=== PATIENT | male | born 1950 | race Caucasian/White ===

== ENCOUNTER 2017-11-14 03:56 | Inpatient (IN) | payer MEDICARE, MEDICAID, OTHER ==
[2017-11-14] MEDS: KETOROLAC 15 MG INJ IV (04:55)
[2017-11-14] MEDS: SOD CHLORIDE 0.9% 1,000 ML IV (04:56)
[2017-11-14] MEDS: ONDANSETRON 4 MG INJ IV (04:56)
[2017-11-14 05:24] LABS: ADD MAN DIFF? NO
[2017-11-14 05:29] LABS: BASOPHIL # 0.1 10^3/ul (0.0-0.1); BASOPHILS % 0.8 % (0.0-2.0); EOSINOPHILS # 0.4 10^3/ul (0.0-0.5); HEMATOCRIT 47.7 % (42.0-52.0); LYMPHOCYTES # 1.1 10^3/ul (0.8-2.9); LYMPHOCYTES % 18.8 % (15.0-51.0); MEAN CORPUSCULAR HEMOGLOBIN 25.6 pg (29.0-33.0); MEAN CORPUSCULAR HGB CONC 31.4 g/dl (32.0-37.0); MEAN CORPUSCULAR VOLUME 81.3 fl (82.0-101.0); MEAN PLATELET VOLUME 10.9 fl (7.4-10.4); MONOCYTE # 0.6 10^3/ul (0.3-0.9); MONOCYTES % 9.2 % (0.0-11.0); NEUTROPHIL # 3.9 10^3/ul (1.6-7.5); NEUTROPHILS % 64.7 % (39.0-77.0); PLATELET COUNT 266 10^3/UL (140-415); RED BLOOD COUNT 5.87 10^6/ul (4.70-6.10); RED CELL DISTRIBUTION WIDTH 13.3 % (11.5-14.5)
[2017-11-14] MEDS: morphine 2 MG INJ IV (05:51)
[2017-11-14] MEDS ORDERED: NACL 0.9% 3 ML SYG IV (06:00)
[2017-11-14] MEDS ORDERED: ACETAMINOPHEN 325 MG TAB PO ×2 (06:00→10:30)
[2017-11-14] MEDS ORDERED: ONDANSETRON 4 MG INJ IV (06:00)
[2017-11-14 06:06] LABS: ANION GAP 12 (8-16); BLOOD UREA NITROGEN 35 mg/dl (7-20); CALCIUM 9.2 mg/dl (8.4-10.2); CARBON DIOXIDE 35 mmol/L (21-31); CHLORIDE 99 mmol/L (97-110); CREATININE 1.29 mg/dl (0.61-1.24); GLUCOSE 59 mg/dl (70-220); POTASSIUM 3.3 mmol/L (3.5-5.1); SODIUM 143 mmol/L (135-144)
[2017-11-14] MEDS ORDERED: HYDROmorphONE 1 MG/ML SYG IV (06:30)
[2017-11-14] MEDS: METOPROLOL 5 MG INJ IV (06:38)
[2017-11-14 07:54] LABS: ALANINE AMINOTRANSFERASE 22 IU/L (13-69); ALKALINE PHOSPHATASE 140 IU/L (42-121); ASPARTATE AMINO TRANSFERASE 42 IU/L (15-46); BILIRUBIN,INDIRECT 0.3 mg/dl (0-1.1); BILIRUBIN,TOTAL 0.3 mg/dl (0.2-1.3); TOTAL PROTEIN 8.7 g/dl (6.1-8.1)
[2017-11-14 08:02] LABS: B-TYPE NATRIURETIC PEPTIDE 8130 PG/ML (0-125)
[2017-11-14] MEDS: APIXABAN 5 MG TABLET PO ×2 (09:11→20:36)
[2017-11-14] MEDS ORDERED: NITROGLYCERIN (SL) 0.4 MG TAB SL (10:30)
[2017-11-14] MEDS: INSULIN ASPART [NOVOLOG] 3 ML PEN SC ×3 (11:45→20:43)
[2017-11-14 12:07] LABS: CREATINE KINASE 48 IU/L (23-200)
[2017-11-14 12:20] LABS: CK INDEX 7.6; TROPONIN-I 0.099 ng/ml (0.00-0.12)
[2017-11-14 12:22] LABS: CK-MB 3.65 ng/ml (0.0-2.4)
[2017-11-14 13:14] LABS: MAGNESIUM 1.8 mg/dl (1.7-2.5)
[2017-11-14 13:16] LABS: PHOSPHORUS 3.2 mg/dl (2.5-4.9)
[2017-11-14 13:16] LABS: CREATINE KINASE 52 IU/L (23-200)
[2017-11-14 13:24] LABS: INR 1.92; PROTIME 22.4 Sec (11.9-14.9); PT RATIO 1.8
[2017-11-14 13:25] LABS: PARTIAL THROMBOPLASTIN TIME 52.3 Sec (25.0-35.0)
[2017-11-14 13:26] LABS: TROPONIN-I 0.117 ng/ml (0.00-0.12)
[2017-11-14] MEDS ORDERED: HYDROmorphONE 2 MG/ML SYG IV (13:30)
[2017-11-14 13:38] LABS: CK INDEX 6.8
[2017-11-14 13:39] LABS: CK-MB 3.55 ng/ml (0.0-2.4)
[2017-11-14] MEDS: HYDROCODONE/APAP (5/325) TAB PO (15:42)
[2017-11-14] MEDS: FUROSEMIDE 20 MG INJ IV (17:15)
[2017-11-14] MEDS ORDERED: METOPROLOL 5 MG INJ IV (18:30)
[2017-11-14] MEDS: DIGOXIN 500 MCG INJ IV (18:46)
[2017-11-14] MEDS: ATENOLOL 25 MG TAB PO (20:36)
[2017-11-14] MEDS: INSULIN GLARGINE [LANtus] 3 ML PEN SC (20:42)
[2017-11-14] MEDS ORDERED: METOPROLOL 25 MG TAB PO (21:00)
[2017-11-15] MEDS: ACCU-CHEK XX (02:00)
[2017-11-15] MEDS: FUROSEMIDE 20 MG INJ IV ×2 (05:25→17:26)
[2017-11-15 07:26] LABS: ADD MAN DIFF? NO
[2017-11-15 07:29] LABS: BASOPHILS % 0.8 % (0.0-2.0); EOSINOPHILS # 0.3 10^3/ul (0.0-0.5); EOSINOPHILS % 7.5 % (0.0-7.0); HEMATOCRIT 41.9 % (42.0-52.0); HEMOGLOBIN 13.3 g/dl (14.0-18.0); LYMPHOCYTES # 1.4 10^3/ul (0.8-2.9); LYMPHOCYTES % 36.1 % (15.0-51.0); MEAN CORPUSCULAR HEMOGLOBIN 25.7 pg (29.0-33.0); MEAN CORPUSCULAR HGB CONC 31.7 g/dl (32.0-37.0); MEAN CORPUSCULAR VOLUME 80.9 fl (82.0-101.0); MEAN PLATELET VOLUME 10.7 fl (7.4-10.4); MONOCYTE # 0.4 10^3/ul (0.3-0.9); MONOCYTES % 10.4 % (0.0-11.0); NEUTROPHIL # 1.7 10^3/ul (1.6-7.5); NEUTROPHILS % 44.9 % (39.0-77.0); PLATELET COUNT 153 10^3/UL (140-415); RED BLOOD COUNT 5.18 10^6/ul (4.70-6.10); RED CELL DISTRIBUTION WIDTH 13.2 % (11.5-14.5)
[2017-11-15 07:29] LABS: WHITE BLOOD COUNT 3.9 10^3/ul (4.8-10.8)
[2017-11-15 07:58] LABS: ANION GAP 11 (8-16); BLOOD UREA NITROGEN 37 mg/dl (7-20); CARBON DIOXIDE 28 mmol/L (21-31); CHLORIDE 105 mmol/L (97-110); CREATININE 1.14 mg/dl (0.61-1.24); GLUCOSE 194 mg/dl (70-220); MAGNESIUM 1.9 mg/dl (1.7-2.5); PHOSPHORUS 2.8 mg/dl (2.5-4.9); SODIUM 140 mmol/L (135-144)
[2017-11-15] MEDS: DULOXETINE 30 MG CAP DR PO (08:23)
[2017-11-15] MEDS: FERROUS SULFATE (EC) 325 MG TAB PO (08:23)
[2017-11-15] MEDS: APIXABAN 5 MG TABLET PO ×2 (08:23→20:36)
[2017-11-15] MEDS: ATENOLOL 25 MG TAB PO ×2 (08:24→20:36)
[2017-11-15] MEDS: INSULIN ASPART [NOVOLOG] 3 ML PEN SC ×4 (08:29→20:38)
[2017-11-15] MEDS ORDERED: LISINOPRIL 5 MG TAB PO (09:00)
[2017-11-15] MEDS ORDERED: HYDROmorphONE 0.5 MG/0.5 ML SYG IV (11:30)
[2017-11-15] MEDS: HYDROCODONE/APAP (5/325) TAB PO (12:15)
[2017-11-15] MEDS: hydrALAzine 20 MG INJ IV (17:26)
[2017-11-15] MEDS: INSULIN GLARGINE [LANtus] 3 ML PEN SC (20:38)
[2017-11-16] MEDS: ACCU-CHEK XX (02:00)
[2017-11-16] MEDS: HYDROCODONE/APAP (5/325) TAB PO ×2 (03:51→15:00)
[2017-11-16] MEDS: FUROSEMIDE 20 MG INJ IV ×2 (05:21→17:24)
[2017-11-16] MEDS: INSULIN ASPART [NOVOLOG] 3 ML PEN SC ×4 (07:54→20:47)
[2017-11-16] MEDS: DULOXETINE 30 MG CAP DR PO (08:36)
[2017-11-16] MEDS: FERROUS SULFATE (EC) 325 MG TAB PO (08:36)
[2017-11-16] MEDS: APIXABAN 5 MG TABLET PO ×2 (08:36→20:46)
[2017-11-16] MEDS: ATENOLOL 25 MG TAB PO (08:37)
[2017-11-16 08:39] LABS: ADD MAN DIFF? NO
[2017-11-16 08:42] LABS: WHITE BLOOD COUNT 5.5 10^3/ul (4.8-10.8)
[2017-11-16 08:42] LABS: BASOPHIL # 0.1 10^3/ul (0.0-0.1); BASOPHILS % 0.9 % (0.0-2.0); EOSINOPHILS # 0.4 10^3/ul (0.0-0.5); EOSINOPHILS % 7.7 % (0.0-7.0); HEMATOCRIT 46.1 % (42.0-52.0); HEMOGLOBIN 14.7 g/dl (14.0-18.0); LYMPHOCYTES % 37.1 % (15.0-51.0); MEAN CORPUSCULAR HEMOGLOBIN 25.5 pg (29.0-33.0); MEAN CORPUSCULAR HGB CONC 31.9 g/dl (32.0-37.0); MEAN CORPUSCULAR VOLUME 79.9 fl (82.0-101.0); MEAN PLATELET VOLUME 11.1 fl (7.4-10.4); MONOCYTE # 0.5 10^3/ul (0.3-0.9); MONOCYTES % 9.3 % (0.0-11.0); NEUTROPHIL # 2.4 10^3/ul (1.6-7.5); NEUTROPHILS % 44.6 % (39.0-77.0); PLATELET COUNT 199 10^3/UL (140-415); RED BLOOD COUNT 5.77 10^6/ul (4.70-6.10); RED CELL DISTRIBUTION WIDTH 13.4 % (11.5-14.5)
[2017-11-16 09:09] LABS: ANION GAP 13 (8-16); BLOOD UREA NITROGEN 28 mg/dl (7-20); CALCIUM 9.4 mg/dl (8.4-10.2); CARBON DIOXIDE 29 mmol/L (21-31); CHLORIDE 105 mmol/L (97-110); CREATININE 0.95 mg/dl (0.61-1.24); GLUCOSE 133 mg/dl (70-220); POTASSIUM 3.8 mmol/L (3.5-5.1); SODIUM 143 mmol/L (135-144)
[2017-11-16] MEDS: ALPRAZOLAM 0.25 MG TAB PO (12:17)
[2017-11-16] MEDS: INSULIN GLARGINE [LANtus] 3 ML PEN SC (20:48)
[2017-11-16] MEDS: ATENOLOL 50 MG TAB PO (21:12)
[2017-11-17] MEDS: hydrALAzine 20 MG INJ IV (00:45)
[2017-11-17] MEDS: ACCU-CHEK XX (01:05)
[2017-11-17] MEDS: HYDROCODONE/APAP (5/325) TAB PO (04:13)
[2017-11-17] MEDS: FUROSEMIDE 20 MG INJ IV ×2 (05:39→17:28)
[2017-11-17] MEDS: ALPRAZOLAM 0.25 MG TAB PO ×2 (05:43→12:16)
[2017-11-17 08:19] LABS: ADD MAN DIFF? NO
[2017-11-17 08:24] LABS: WHITE BLOOD COUNT 6.3 10^3/ul (4.8-10.8)
[2017-11-17 08:24] LABS: BASOPHIL # 0.1 10^3/ul (0.0-0.1); EOSINOPHILS # 0.5 10^3/ul (0.0-0.5); EOSINOPHILS % 7.8 % (0.0-7.0); HEMATOCRIT 45.8 % (42.0-52.0); HEMOGLOBIN 14.8 g/dl (14.0-18.0); LYMPHOCYTES # 2.3 10^3/ul (0.8-2.9); LYMPHOCYTES % 35.7 % (15.0-51.0); MEAN CORPUSCULAR HEMOGLOBIN 25.6 pg (29.0-33.0); MEAN CORPUSCULAR HGB CONC 32.3 g/dl (32.0-37.0); MEAN CORPUSCULAR VOLUME 79.2 fl (82.0-101.0); MONOCYTE # 0.6 10^3/ul (0.3-0.9); NEUTROPHIL # 2.9 10^3/ul (1.6-7.5); NEUTROPHILS % 45.2 % (39.0-77.0); PLATELET COUNT 222 10^3/UL (140-415); RED BLOOD COUNT 5.78 10^6/ul (4.70-6.10); RED CELL DISTRIBUTION WIDTH 13.5 % (11.5-14.5)
[2017-11-17] MEDS: INSULIN ASPART [NOVOLOG] 3 ML PEN SC ×5 (08:34→22:46)
[2017-11-17 08:43] LABS: ANION GAP 11 (8-16); BLOOD UREA NITROGEN 30 mg/dl (7-20); CALCIUM 9.2 mg/dl (8.4-10.2); CARBON DIOXIDE 29 mmol/L (21-31); CHLORIDE 103 mmol/L (97-110); CREATININE 1.01 mg/dl (0.61-1.24); GLUCOSE 176 mg/dl (70-220); POTASSIUM 3.6 mmol/L (3.5-5.1); SODIUM 139 mmol/L (135-144)
[2017-11-17] MEDS: ATENOLOL 50 MG TAB PO ×2 (10:20→21:58)
[2017-11-17] MEDS: FERROUS SULFATE (EC) 325 MG TAB PO (10:20)
[2017-11-17] MEDS: DULOXETINE 30 MG CAP DR PO (10:20)
[2017-11-17] MEDS: APIXABAN 5 MG TABLET PO ×2 (10:20→21:58)
[2017-11-17] MEDS: ONDANSETRON 4 MG INJ IV (17:35)
[2017-11-17] MEDS: INSULIN GLARGINE [LANtus] 3 ML PEN SC ×2 (22:13→23:03)
[2017-11-18] MEDS: ALPRAZOLAM 0.25 MG TAB PO (00:17)
[2017-11-18] MEDS: ACCU-CHEK XX (02:00)
[2017-11-18] MEDS: FUROSEMIDE 20 MG INJ IV ×2 (06:05→17:12)
[2017-11-18] MEDS: INSULIN ASPART [NOVOLOG] 3 ML PEN SC ×6 (08:00→17:16)
[2017-11-18] MEDS: DULOXETINE 30 MG CAP DR PO (08:11)
[2017-11-18] MEDS: APIXABAN 5 MG TABLET PO (08:12)
[2017-11-18] MEDS: DILTIAZEM (CD) 120 MG CAP PO (08:12)
[2017-11-18] MEDS: FERROUS SULFATE (EC) 325 MG TAB PO (08:12)
[2017-11-18] MEDS: ATENOLOL 50 MG TAB PO (08:12)
[2017-11-18] MEDS: HYDROCODONE/APAP (5/325) TAB PO (14:15)
[2017-11-18] MEDS ORDERED: INSULIN GLARGINE [LANtus] 3 ML PEN SC (21:00)
== END 2017-11-18 19:01 | DRG 308 ==
LOC: E/R 03:56 → MS4 05:15
DX: I48.91 Unspecified atrial fibrillation (principal); I50.43 Acute on chronic combined systolic (congestive) and diastolic (congestive) heart failure; L89.154 Pressure ulcer of sacral region, stage 4; I11.0 Hypertensive heart disease with heart failure; I35.0 Nonrheumatic aortic (valve) stenosis; E11.9 Type 2 diabetes mellitus without complications; Z79.4 Long term (current) use of insulin; Z89.512 Acquired absence of left leg below knee; Z89.511 Acquired absence of right leg below knee
CPT/HCPCS: 36415; 70450; 71045; 80048; 80076; 82550; 82553; 82962; 83735; 83880; 84100; 84132; 84443; 84484; 85025; 85610; 85730; 87040; 93005; 96374; 96375; 99285-25; J1940

== ENCOUNTER 2017-11-20 06:29 | Inpatient (IN) | payer MEDICARE, MEDICAID ==
[2017-11-20] MEDS: NITROGLYCERIN 2% 1 GM OINT PKT TD (06:38)
[2017-11-20 08:15] LABS: ADD MAN DIFF? NO
[2017-11-20 08:19] LABS: WHITE BLOOD COUNT 5.6 10^3/ul (4.8-10.8)
[2017-11-20 08:19] LABS: BASOPHIL # 0.1 10^3/ul (0.0-0.1); BASOPHILS % 1.3 % (0.0-2.0); EOSINOPHILS # 0.4 10^3/ul (0.0-0.5); EOSINOPHILS % 7.5 % (0.0-7.0); HEMATOCRIT 46.2 % (42.0-52.0); HEMOGLOBIN 14.7 g/dl (14.0-18.0); LYMPHOCYTES % 35.2 % (15.0-51.0); MEAN CORPUSCULAR HEMOGLOBIN 25.3 pg (29.0-33.0); MEAN CORPUSCULAR HGB CONC 31.8 g/dl (32.0-37.0); MEAN CORPUSCULAR VOLUME 79.7 fl (82.0-101.0); MEAN PLATELET VOLUME 10.8 fl (7.4-10.4); MONOCYTE # 0.5 10^3/ul (0.3-0.9); MONOCYTES % 9.3 % (0.0-11.0); NEUTROPHIL # 2.6 10^3/ul (1.6-7.5); NEUTROPHILS % 46.3 % (39.0-77.0); PLATELET COUNT 182 10^3/UL (140-415); POSITIVE DIFF @See below; RED CELL DISTRIBUTION WIDTH 13.5 % (11.5-14.5)
[2017-11-20 08:37] LABS: ANION GAP 14 (8-16); BLOOD UREA NITROGEN 38 mg/dl (7-20); CARBON DIOXIDE 26 mmol/L (21-31); CHLORIDE 106 mmol/L (97-110); CREATININE 0.95 mg/dl (0.61-1.24); GLUCOSE 89 mg/dl (70-220); POTASSIUM 4.3 mmol/L (3.5-5.1); SODIUM 142 mmol/L (135-144)
[2017-11-20 08:48] LABS: TROPONIN-I 0.034 ng/ml (0.00-0.12)
[2017-11-20 09:49] LABS: CREATINE KINASE 45 IU/L (23-200)
[2017-11-20 10:01] LABS: CK INDEX 4.8; TROPONIN-I 0.031 ng/ml (0.00-0.12)
[2017-11-20 10:06] LABS: CK-MB 2.16 ng/ml (0.0-2.4)
[2017-11-20] MEDS ORDERED: ACETAMINOPHEN 325 MG TAB PO (11:00)
[2017-11-20] MEDS ORDERED: ONDANSETRON 4 MG INJ IV (11:00)
[2017-11-20] MEDS ORDERED: NITROGLYCERIN (SL) 0.4 MG TAB SL (13:00)
[2017-11-20] MEDS ORDERED: DEXTROSE 50% 50 ML SYRINGE IV ×2 (13:30)
[2017-11-20] MEDS ORDERED: GLUCOSE GEL 15 GRAM TUBE BUCCAL (13:30)
[2017-11-20] MEDS ORDERED: GLUCAGON 1 MG INJ IM (13:30)
[2017-11-20] MEDS ORDERED: GLUCOSE GEL 15 GRAM TUBE PO ×2 (13:30)
[2017-11-20] MEDS: INSULIN ASPART [NOVOLOG] 3 ML PEN SC (19:14)
[2017-11-20 19:38] LABS: CREATINE KINASE 62 IU/L (23-200)
[2017-11-20 19:50] LABS: CK INDEX 3.5; TROPONIN-I 0.019 ng/ml (0.00-0.12)
[2017-11-20 19:51] LABS: CK-MB 2.15 ng/ml (0.0-2.4)
[2017-11-20] MEDS: ALPRAZOLAM 0.25 MG TAB PO (20:03)
[2017-11-20] MEDS: HYDROCODONE/APAP (5/325) TAB PO (20:04)
[2017-11-21] MEDS: FUROSEMIDE 20 MG TAB PO ×3 (00:13→21:11)
[2017-11-21] MEDS: ATENOLOL 50 MG TAB PO ×3 (00:14→21:12)
[2017-11-21] MEDS: APIXABAN 5 MG TABLET PO ×3 (00:14→21:11)
[2017-11-21] MEDS: INSULIN GLARGINE [LANtus] 3 ML PEN SC ×2 (00:21→21:18)
[2017-11-21] MEDS: INSULIN ASPART [NOVOLOG] 3 ML PEN SC ×4 (00:21→21:17)
[2017-11-21] MEDS: ACCU-CHEK XX (09:00)
[2017-11-21] MEDS: FERROUS SULFATE (EC) 325 MG TAB PO (09:44)
[2017-11-21] MEDS: DULOXETINE 30 MG CAP DR PO (09:44)
[2017-11-21] MEDS: DILTIAZEM (CD) 120 MG CAP PO (09:48)
[2017-11-21] MEDS: HYDROCODONE/APAP (5/325) TAB PO (13:07)
[2017-11-21] MEDS: ACET/BUTAL/CAFF TAB PO (18:35)
[2017-11-22] MEDS: ACCU-CHEK XX (01:24)
[2017-11-22] MEDS: INSULIN ASPART [NOVOLOG] 3 ML PEN SC ×4 (08:00→20:34)
[2017-11-22] MEDS: FUROSEMIDE 20 MG TAB PO ×2 (08:20→20:28)
[2017-11-22] MEDS: DULOXETINE 30 MG CAP DR PO (08:20)
[2017-11-22] MEDS: FERROUS SULFATE (EC) 325 MG TAB PO (08:20)
[2017-11-22] MEDS: APIXABAN 5 MG TABLET PO ×2 (08:20→20:27)
[2017-11-22] MEDS: DILTIAZEM (CD) 120 MG CAP PO (08:20)
[2017-11-22] MEDS: ATENOLOL 50 MG TAB PO ×2 (08:21→20:28)
[2017-11-22] MEDS: HYDROCODONE/APAP (5/325) TAB PO ×2 (12:19→21:53)
[2017-11-22] MEDS: INSULIN GLARGINE [LANtus] 3 ML PEN SC (20:36)
[2017-11-23] MEDS: ACCU-CHEK XX (02:00)
[2017-11-23] MEDS: ALPRAZOLAM 0.25 MG TAB PO (05:34)
[2017-11-23] MEDS: ACETAMINOPHEN 325 MG TAB PO (06:06)
[2017-11-23] MEDS: FERROUS SULFATE (EC) 325 MG TAB PO (08:26)
[2017-11-23] MEDS: ATENOLOL 50 MG TAB PO ×2 (08:27→20:46)
[2017-11-23] MEDS: APIXABAN 5 MG TABLET PO ×2 (08:27→20:44)
[2017-11-23] MEDS: DULOXETINE 30 MG CAP DR PO (08:27)
[2017-11-23] MEDS: DILTIAZEM (CD) 120 MG CAP PO ×2 (08:27→08:35)
[2017-11-23] MEDS: FUROSEMIDE 20 MG TAB PO ×2 (08:27→20:45)
[2017-11-23] MEDS: HYDROCODONE/APAP (5/325) TAB PO (08:28)
[2017-11-23] MEDS: INSULIN ASPART [NOVOLOG] 3 ML PEN SC ×4 (08:30→20:44)
[2017-11-23] MEDS: INSULIN GLARGINE [LANtus] 3 ML PEN SC (20:43)
[2017-11-24] MEDS: HYDROCODONE/APAP (5/325) TAB PO ×3 (00:08→16:02)
[2017-11-24] MEDS: ACCU-CHEK XX (02:00)
[2017-11-24] MEDS: INSULIN ASPART [NOVOLOG] 3 ML PEN SC ×4 (08:00→22:09)
[2017-11-24] MEDS: FAMOTIDINE 20 MG TAB PO (08:23)
[2017-11-24] MEDS: FERROUS SULFATE (EC) 325 MG TAB PO ×2 (08:23→08:29)
[2017-11-24] MEDS: APIXABAN 5 MG TABLET PO ×2 (08:23→22:08)
[2017-11-24] MEDS: DULOXETINE 30 MG CAP DR PO (08:23)
[2017-11-24] MEDS: ALPRAZOLAM 0.25 MG TAB PO (08:23)
[2017-11-24] MEDS: FUROSEMIDE 20 MG TAB PO ×2 (08:25→22:08)
[2017-11-24] MEDS: ATENOLOL 50 MG TAB PO ×2 (08:25→21:00)
[2017-11-24] MEDS: DILTIAZEM (CD) 120 MG CAP PO (08:26)
[2017-11-24 09:45] LABS: ALBUMIN 3.5 g/dl (3.3-4.9); ANION GAP 10 (8-16); BLOOD UREA NITROGEN 30 mg/dl (7-20); CALCIUM 9.2 mg/dl (8.4-10.2); CARBON DIOXIDE 35 mmol/L (21-31); CHLORIDE 105 mmol/L (97-110); CREATININE 1.01 mg/dl (0.61-1.24); GLUCOSE 107 mg/dl (70-220); MAGNESIUM 2.2 mg/dl (1.7-2.5); PHOSPHORUS 3.6 mg/dl (2.5-4.9); POTASSIUM 4.5 mmol/L (3.5-5.1); SODIUM 145 mmol/L (135-144)
[2017-11-24] MEDS: INSULIN GLARGINE [LANtus] 3 ML PEN SC (22:10)
[2017-11-25] MEDS: ACCU-CHEK XX (02:00)
[2017-11-25] MEDS: ALPRAZOLAM 0.25 MG TAB PO (02:13)
[2017-11-25] MEDS: FAMOTIDINE 20 MG TAB PO (09:00)
[2017-11-25] MEDS: DULOXETINE 30 MG CAP DR PO (09:00)
[2017-11-25] MEDS: FUROSEMIDE 20 MG TAB PO (09:00)
[2017-11-25] MEDS: DILTIAZEM (CD) 120 MG CAP PO (09:01)
[2017-11-25] MEDS: ATENOLOL 50 MG TAB PO (09:01)
[2017-11-25] MEDS: APIXABAN 5 MG TABLET PO (09:01)
[2017-11-25] MEDS: FERROUS SULFATE (EC) 325 MG TAB PO (09:01)
[2017-11-25] MEDS: INSULIN ASPART [NOVOLOG] 3 ML PEN SC (09:05)
[2017-11-25] MEDS: HYDROCODONE/APAP (5/325) TAB PO (10:10)
== END 2017-11-25 11:30 | disposition home or self-care (01) | DRG 308 ==
LOC: MS4 10:39 → E/R 06:29
DX: I48.92 Unspecified atrial flutter (principal); I50.43 Acute on chronic combined systolic (congestive) and diastolic (congestive) heart failure; D68.69 Other thrombophilia; I48.2 Chronic atrial fibrillation; I11.0 Hypertensive heart disease with heart failure; F32.9 Major depressive disorder, single episode, unspecified; I35.0 Nonrheumatic aortic (valve) stenosis; E78.5 Hyperlipidemia, unspecified; I25.10 Atherosclerotic heart disease of native coronary artery without angina pectoris; E11.9 Type 2 diabetes mellitus without complications; Z79.02 Long term (current) use of antithrombotics/antiplatelets; Z79.4 Long term (current) use of insulin; Z89.512 Acquired absence of left leg below knee; Z89.511 Acquired absence of right leg below knee; Z93.3 Colostomy status; Z87.891 Personal history of nicotine dependence
CPT/HCPCS: 36415; 71045; 80048; 80069; 82550; 82553; 82962; 83735; 84484; 85025; 93005; 96372; 97161; 97167; 99285-25; G0378

== ENCOUNTER 2017-12-15 05:46 | Inpatient (IN) | payer MEDICARE, MEDICAID ==
[2017-12-15 06:33] LABS: ADD MAN DIFF? NO
[2017-12-15 06:36] LABS: WHITE BLOOD COUNT 6.2 10^3/ul (4.8-10.8)
[2017-12-15 06:36] LABS: BASOPHILS % 0.7 % (0.0-2.0); EOSINOPHILS # 0.1 10^3/ul (0.0-0.5); EOSINOPHILS % 2.1 % (0.0-7.0); HEMATOCRIT 48.2 % (42.0-52.0); HEMOGLOBIN 15.4 g/dl (14.0-18.0); LYMPHOCYTES # 1.2 10^3/ul (0.8-2.9); MEAN CORPUSCULAR VOLUME 78.4 fl (82.0-101.0); MONOCYTE # 0.5 10^3/ul (0.3-0.9); MONOCYTES % 8.5 % (0.0-11.0); NEUTROPHIL # 4.3 10^3/ul (1.6-7.5); NEUTROPHILS % 69.4 % (39.0-77.0); PLATELET COUNT 246 10^3/UL (140-415); RED BLOOD COUNT 6.15 10^6/ul (4.70-6.10); RED CELL DISTRIBUTION WIDTH 13.6 % (11.5-14.5)
[2017-12-15 06:57] LABS: ANION GAP 15 (8-16); BLOOD UREA NITROGEN 21 mg/dl (7-20); CALCIUM 9.4 mg/dl (8.4-10.2); CARBON DIOXIDE 33 mmol/L (21-31); CHLORIDE 104 mmol/L (97-110); CREATININE 1.15 mg/dl (0.61-1.24); GLUCOSE 119 mg/dl (70-220); POTASSIUM 4.2 mmol/L (3.5-5.1); SODIUM 148 mmol/L (135-144)
[2017-12-15 07:09] LABS: TROPONIN-I 0.017 ng/ml (0.00-0.12)
[2017-12-15] MEDS: ASPIRIN 81 MG TAB PO (07:18)
[2017-12-15] MEDS: ONDANSETRON 4 MG INJ IV (07:18)
[2017-12-15] MEDS: HYDROmorphONE 0.5 MG/0.5 ML SYG IV ×3 (07:18→20:45)
[2017-12-15 08:07] LABS: INR 1.17; PROTIME 15.1 Sec (11.9-14.9); PT RATIO 1.2
[2017-12-15 08:08] LABS: PARTIAL THROMBOPLASTIN TIME 42.9 Sec (25.0-35.0)
[2017-12-15] MEDS ORDERED: ACETAMINOPHEN 325 MG TAB PO ×2 (08:30→11:30)
[2017-12-15] MEDS ORDERED: ONDANSETRON 4 MG INJ IV ×2 (08:30→11:30)
[2017-12-15] MEDS ORDERED: NITROGLYCERIN (SL) 0.4 MG TAB SL (11:30)
[2017-12-15] MEDS ORDERED: NACL 0.9% 3 ML SYG IV (11:30)
[2017-12-15 12:29] LABS: UR BACTERIA MANY /HPF (NONE SEEN); UR MUCUS MANY /HPF (NONE SEEN); UR RBC 44 /HPF (0-5); UR SQUAMOUS EPITHELIAL CELL MANY /HPF (FEW); UR WBC > 182 /HPF (0-5)
[2017-12-15] MEDS ORDERED: GLUCAGON 1 MG INJ IM (12:30)
[2017-12-15] MEDS ORDERED: DEXTROSE 50% 50 ML SYRINGE IV ×2 (12:30)
[2017-12-15] MEDS ORDERED: GLUCOSE GEL 15 GRAM TUBE PO ×2 (12:30)
[2017-12-15] MEDS ORDERED: GLUCOSE GEL 15 GRAM TUBE BUCCAL (12:30)
[2017-12-15 12:31] LABS: ADD UMIC YES; UR ASCORBIC ACID NEGATIVE (NEGATIVE); UR BILIRUBIN (Dip) 1+ mg/dL (NEGATIVE); UR BLOOD (Dip) 2+ mg/dL (NEGATIVE); UR CLARITY TURBID (CLEAR); UR COLOR YELLOW (YELLOW); UR GLUCOSE (Dip) NEGATIVE (NEGATIVE); UR KETONES (Dip) NEGATIVE (NEGATIVE); UR LEUKOCYTE ESTERASE (Dip) 2+ Leu/ul (NEGATIVE); UR NITRITE (Dip) NEGATIVE (NEGATIVE); UR SPECIFIC GRAVITY (Dip) 1.023 (1.003-1.030); UR TOTAL PROTEIN (Dip) 2+ mg/dl (NEGATIVE); UR UROBILINOGEN (Dip) 2+ mg/dL (NEGATIVE)
[2017-12-15] MEDS: INSULIN ASPART [NOVOLOG] 3 ML PEN SC ×6 (12:37→20:50)
[2017-12-15 13:09] LABS: CREATINE KINASE 42 IU/L (23-200)
[2017-12-15 13:21] LABS: CK INDEX 3.5; TROPONIN-I 0.062 ng/ml (0.00-0.12)
[2017-12-15 13:27] LABS: CK-MB 1.48 ng/ml (0.0-2.4)
[2017-12-15 14:25] LABS: B-TYPE NATRIURETIC PEPTIDE 4650 PG/ML (0-125)
[2017-12-15] MEDS ORDERED: PENDING SANTYL ORDER FOR WOUND CARE XX (16:00)
[2017-12-15] MEDS: Discontinue current oral sulfonylureas (glyburide, glipizide, and/or glimepiride) prior to XX (16:16)
[2017-12-15] MEDS: HYPOGLYCEMIA PROTOCOL when Glucose is <70 mg/dL or symptomatic <90 mg/dL. XX (16:16)
[2017-12-15] MEDS: FUROSEMIDE 20 MG INJ IV (17:37)
[2017-12-15] MEDS ORDERED: METOPROLOL 5 MG INJ IV (19:00)
[2017-12-15] MEDS: SOD CHLORIDE 0.45% 1,000 ML IV (20:42)
[2017-12-15] MEDS: APIXABAN 5 MG TABLET PO (20:42)
[2017-12-15] MEDS: ATENOLOL 50 MG TAB PO (20:43)
[2017-12-15] MEDS: FAMOTIDINE 20 MG TAB PO (20:44)
[2017-12-15] MEDS: INSULIN GLARGINE [LANtus] 3 ML PEN SC (20:46)
[2017-12-15] MEDS ORDERED: FUROSEMIDE 20 MG TAB PO (21:00)
[2017-12-16] MEDS: ACCU-CHEK XX (01:56)
[2017-12-16] MEDS: FUROSEMIDE 20 MG INJ IV ×2 (06:49→18:37)
[2017-12-16] MEDS: INSULIN ASPART [NOVOLOG] 3 ML PEN SC ×8 (08:00→21:21)
[2017-12-16] MEDS: DILTIAZEM (CD) 120 MG CAP PO (09:41)
[2017-12-16] MEDS: DULOXETINE 30 MG CAP DR PO (09:41)
[2017-12-16] MEDS: ATENOLOL 50 MG TAB PO ×2 (09:41→21:15)
[2017-12-16] MEDS: FERROUS SULFATE (EC) 325 MG TAB PO (09:41)
[2017-12-16] MEDS: APIXABAN 5 MG TABLET PO (09:42)
[2017-12-16] MEDS: HYDROmorphONE 0.5 MG/0.5 ML SYG IV ×2 (11:28→18:37)
[2017-12-16] MEDS: SOD CHLORIDE 0.45% 1,000 ML IV (11:30)
[2017-12-16] MEDS ORDERED: LEVOFLOXACIN 500MG/D5W (PMX) 100 ML IVPB (12:30)
[2017-12-16 14:17] LABS: ADD MAN DIFF? NO
[2017-12-16 14:21] LABS: BASOPHIL # 0.1 10^3/ul (0.0-0.1); BASOPHILS % 1.2 % (0.0-2.0); EOSINOPHILS # 0.3 10^3/ul (0.0-0.5); HEMATOCRIT 47.3 % (42.0-52.0); HEMOGLOBIN 15.1 g/dl (14.0-18.0); LYMPHOCYTES # 1.8 10^3/ul (0.8-2.9); LYMPHOCYTES % 34.9 % (15.0-51.0); MEAN CORPUSCULAR HEMOGLOBIN 25.5 pg (29.0-33.0); MEAN CORPUSCULAR HGB CONC 31.9 g/dl (32.0-37.0); MEAN CORPUSCULAR VOLUME 79.8 fl (82.0-101.0); MEAN PLATELET VOLUME 10.6 fl (7.4-10.4); MONOCYTE # 0.6 10^3/ul (0.3-0.9); NEUTROPHIL # 2.4 10^3/ul (1.6-7.5); NEUTROPHILS % 45.7 % (39.0-77.0); PLATELET COUNT 227 10^3/UL (140-415); RED BLOOD COUNT 5.93 10^6/ul (4.70-6.10); RED CELL DISTRIBUTION WIDTH 13.9 % (11.5-14.5)
[2017-12-16 14:21] LABS: WHITE BLOOD COUNT 5.2 10^3/ul (4.8-10.8)
[2017-12-16 14:44] LABS: ANION GAP 16 (8-16); BLOOD UREA NITROGEN 29 mg/dl (7-20); CALCIUM 9.1 mg/dl (8.4-10.2); CARBON DIOXIDE 31 mmol/L (21-31); CHLORIDE 104 mmol/L (97-110); CHOL/HDL RATIO 5.8 RATIO; CHOLESTEROL 169 mg/dl (100-200); CREATININE 1.09 mg/dl (0.61-1.24); GLUCOSE 123 mg/dl (70-220); HDL CHOLESTEROL 29 mg/dl (30-78); LDL CHOLESTEROL,CALCULATED 114 mg/dl; MAGNESIUM 1.9 mg/dl (1.7-2.5); PHOSPHORUS 3.7 mg/dl (2.5-4.9); POTASSIUM 4.6 mmol/L (3.5-5.1); SODIUM 146 mmol/L (135-144); TRIGLYCERIDES 132 mg/dl (0-149)
[2017-12-16] MEDS: CIPROFLOXACIN 400MG/D5W 200 ML IVPB ×2 (14:55→22:55)
[2017-12-16 15:03] LABS: HEMOGLOBIN A1C 8.1 % (0-5.9)
[2017-12-16] MEDS: FAMOTIDINE 20 MG TAB PO (21:14)
[2017-12-16] MEDS: INSULIN GLARGINE [LANtus] 3 ML PEN SC (21:17)
[2017-12-16] MEDS: HYDROCODONE/APAP (5/325) TAB PO (23:29)
[2017-12-17] MEDS: ACCU-CHEK XX (02:35)
[2017-12-17] MEDS: SOD CHLORIDE 0.45% 1,000 ML IV (05:35)
[2017-12-17] MEDS: FUROSEMIDE 20 MG INJ IV ×2 (05:35→17:51)
[2017-12-17] MEDS: HYDROmorphONE 0.5 MG/0.5 ML SYG IV ×4 (08:22→22:23)
[2017-12-17] MEDS: APIXABAN 5 MG TABLET PO ×2 (08:28→21:21)
[2017-12-17] MEDS: FERROUS SULFATE (EC) 325 MG TAB PO (08:28)
[2017-12-17] MEDS: CIPROFLOXACIN 400MG/D5W 200 ML IVPB (08:28)
[2017-12-17] MEDS: ATENOLOL 50 MG TAB PO ×2 (08:29→21:21)
[2017-12-17] MEDS: DULOXETINE 30 MG CAP DR PO (08:29)
[2017-12-17] MEDS: DILTIAZEM (CD) 120 MG CAP PO (08:29)
[2017-12-17] MEDS: INSULIN ASPART [NOVOLOG] 3 ML PEN SC ×8 (08:31→21:54)
[2017-12-17 08:41] LABS: ADD MAN DIFF? NO
[2017-12-17 08:45] LABS: WHITE BLOOD COUNT 4.9 10^3/ul (4.8-10.8)
[2017-12-17 08:45] LABS: BASOPHIL # 0.1 10^3/ul (0.0-0.1); EOSINOPHILS # 0.3 10^3/ul (0.0-0.5); EOSINOPHILS % 6.7 % (0.0-7.0); HEMATOCRIT 46.5 % (42.0-52.0); HEMOGLOBIN 14.7 g/dl (14.0-18.0); LYMPHOCYTES # 1.6 10^3/ul (0.8-2.9); MEAN CORPUSCULAR HEMOGLOBIN 25.3 pg (29.0-33.0); MEAN CORPUSCULAR HGB CONC 31.6 g/dl (32.0-37.0); MEAN CORPUSCULAR VOLUME 79.9 fl (82.0-101.0); MONOCYTE # 0.5 10^3/ul (0.3-0.9); NEUTROPHIL # 2.4 10^3/ul (1.6-7.5); NEUTROPHILS % 47.9 % (39.0-77.0); PLATELET COUNT 204 10^3/UL (140-415); RED BLOOD COUNT 5.82 10^6/ul (4.70-6.10); RED CELL DISTRIBUTION WIDTH 13.3 % (11.5-14.5)
[2017-12-17 09:14] LABS: ANION GAP 15 (8-16); BLOOD UREA NITROGEN 35 mg/dl (7-20); CALCIUM 9.2 mg/dl (8.4-10.2); CARBON DIOXIDE 33 mmol/L (21-31); CHLORIDE 101 mmol/L (97-110); CREATININE 1.29 mg/dl (0.61-1.24); GLUCOSE 233 mg/dl (70-220); POTASSIUM 4.6 mmol/L (3.5-5.1); SODIUM 144 mmol/L (135-144)
[2017-12-17] MEDS: MUPIROCIN 2% 22 GM OINT TOP ×2 (12:47→21:51)
[2017-12-17] MEDS: MEROPENEM 1 GM/50ML(PMX) 50 ML IVPB ×2 (14:32→21:21)
[2017-12-17] MEDS: FAMOTIDINE 20 MG TAB PO (21:21)
[2017-12-17] MEDS: INSULIN GLARGINE [LANtus] 3 ML PEN SC (21:25)
[2017-12-18] MEDS: ACCU-CHEK XX (02:00)
[2017-12-18] MEDS: FUROSEMIDE 20 MG INJ IV ×2 (05:28→17:25)
[2017-12-18] MEDS: SOD CHLORIDE 0.45% 1,000 ML IV (06:46)
[2017-12-18] MEDS: INSULIN ASPART [NOVOLOG] 3 ML PEN SC ×8 (08:00→21:00)
[2017-12-18] MEDS: DULOXETINE 30 MG CAP DR PO (09:35)
[2017-12-18] MEDS: DILTIAZEM (CD) 120 MG CAP PO (09:35)
[2017-12-18] MEDS: APIXABAN 5 MG TABLET PO ×2 (09:36→21:01)
[2017-12-18] MEDS: FERROUS SULFATE (EC) 325 MG TAB PO (09:36)
[2017-12-18] MEDS: HYDROCODONE/APAP (5/325) TAB PO (09:36)
[2017-12-18] MEDS: ATENOLOL 50 MG TAB PO ×2 (09:36→21:01)
[2017-12-18] MEDS: MUPIROCIN 2% 22 GM OINT TOP ×2 (09:37→21:15)
[2017-12-18] MEDS: HYDROmorphONE 0.5 MG/0.5 ML SYG IV ×2 (11:01→18:48)
[2017-12-18] MEDS: MEROPENEM 1 GM/50ML(PMX) 50 ML IVPB ×2 (11:21→21:02)
[2017-12-18] MEDS: FAMOTIDINE 20 MG TAB PO (21:01)
[2017-12-18] MEDS: INSULIN GLARGINE [LANtus] 3 ML PEN SC (21:03)
[2017-12-19] MEDS: ACCU-CHEK XX (02:00)
[2017-12-19] MEDS: SOD CHLORIDE 0.45% 1,000 ML IV (03:13)
[2017-12-19] MEDS: FUROSEMIDE 20 MG INJ IV ×2 (05:30→17:50)
[2017-12-19] MEDS: INSULIN ASPART [NOVOLOG] 3 ML PEN SC ×8 (08:00→20:54)
[2017-12-19] MEDS: MEROPENEM 1 GM/50ML(PMX) 50 ML IVPB ×2 (08:12→20:48)
[2017-12-19] MEDS: APIXABAN 5 MG TABLET PO (08:12)
[2017-12-19] MEDS: MUPIROCIN 2% 22 GM OINT TOP ×2 (08:12→20:48)
[2017-12-19] MEDS: FERROUS SULFATE (EC) 325 MG TAB PO (08:12)
[2017-12-19] MEDS: DULOXETINE 30 MG CAP DR PO (08:12)
[2017-12-19] MEDS: DILTIAZEM (CD) 120 MG CAP PO (08:12)
[2017-12-19] MEDS: ATENOLOL 50 MG TAB PO ×2 (08:13→20:47)
[2017-12-19] MEDS: HYDROmorphONE 0.5 MG/0.5 ML SYG IV ×2 (08:26→17:53)
[2017-12-19] MEDS ORDERED: VANCOMYCIN IV PER PHARMACY XX (11:30)
[2017-12-19] MEDS: VANCOMYCIN 1.5 GM in SOD CHLORIDE 0.9% 250 ML IVPB (13:30)
[2017-12-19] MEDS: FAMOTIDINE 20 MG TAB PO (20:47)
[2017-12-19] MEDS: ALPRAZOLAM 0.25 MG TAB PO (23:26)
[2017-12-19] MEDS: INSULIN GLARGINE [LANtus] 3 ML PEN SC (23:30)
[2017-12-20] MEDS: ACCU-CHEK XX (02:00)
[2017-12-20] MEDS: FUROSEMIDE 20 MG INJ IV ×2 (06:00→18:12)
[2017-12-20] MEDS: INSULIN ASPART [NOVOLOG] 3 ML PEN SC ×8 (08:00→20:25)
[2017-12-20 08:53] LABS: ADD MAN DIFF? NO
[2017-12-20] MEDS: MEROPENEM 1 GM/50ML(PMX) 50 ML IVPB ×3 (09:00→20:45)
[2017-12-20 09:03] LABS: BASOPHILS % 0.7 % (0.0-2.0); EOSINOPHILS # 0.3 10^3/ul (0.0-0.5); EOSINOPHILS % 7.1 % (0.0-7.0); HEMATOCRIT 45.5 % (42.0-52.0); HEMOGLOBIN 14.6 g/dl (14.0-18.0); LYMPHOCYTES # 0.9 10^3/ul (0.8-2.9); LYMPHOCYTES % 22.4 % (15.0-51.0); MEAN CORPUSCULAR HGB CONC 32.1 g/dl (32.0-37.0); MEAN CORPUSCULAR VOLUME 77.8 fl (82.0-101.0); MEAN PLATELET VOLUME 10.5 fl (7.4-10.4); MONOCYTE # 0.5 10^3/ul (0.3-0.9); MONOCYTES % 12.1 % (0.0-11.0); NEUTROPHIL # 2.3 10^3/ul (1.6-7.5); PLATELET COUNT 217 10^3/UL (140-415); RED BLOOD COUNT 5.85 10^6/ul (4.70-6.10); RED CELL DISTRIBUTION WIDTH 13.8 % (11.5-14.5)
[2017-12-20 09:03] LABS: WHITE BLOOD COUNT 4.1 10^3/ul (4.8-10.8)
[2017-12-20] MEDS: ATENOLOL 50 MG TAB PO ×2 (09:13→20:22)
[2017-12-20] MEDS: DULOXETINE 30 MG CAP DR PO (09:13)
[2017-12-20] MEDS: MUPIROCIN 2% 22 GM OINT TOP ×2 (09:14→20:22)
[2017-12-20] MEDS: FERROUS SULFATE (EC) 325 MG TAB PO (09:14)
[2017-12-20] MEDS: DILTIAZEM (CD) 120 MG CAP PO (09:14)
[2017-12-20 09:30] LABS: INR 1.23; PROTIME 15.7 Sec (11.9-14.9); PT RATIO 1.2
[2017-12-20 09:30] LABS: CHOLESTEROL 157 mg/dl (100-200)
[2017-12-20 09:31] LABS: PARTIAL THROMBOPLASTIN TIME 45.2 Sec (25.0-35.0)
[2017-12-20 09:48] LABS: ANION GAP 14 (8-16); BLOOD UREA NITROGEN 36 mg/dl (7-20); CALCIUM 9.1 mg/dl (8.4-10.2); CARBON DIOXIDE 29 mmol/L (21-31); CHLORIDE 105 mmol/L (97-110); CREATININE 0.89 mg/dl (0.61-1.24); GLUCOSE 84 mg/dl (70-220); POTASSIUM 4.2 mmol/L (3.5-5.1); SODIUM 144 mmol/L (135-144)
[2017-12-20] MEDS: DIAZEPAM 5 MG TAB PO (10:00)
[2017-12-20] MEDS: SOD CHLORIDE 0.45% 1,000 ML IV (11:30)
[2017-12-20] MEDS: VANCOMYCIN 750 MG in DEXTROSE 5% 150 ML IVPB ×2 (12:00)
[2017-12-20] MEDS: DIPHENHYDRAMINE 50 MG CAP PO (12:03)
[2017-12-20] MEDS ORDERED: MIDAZOLAM 1 MG/ML 2 ML INJ (12:08)
[2017-12-20] MEDS ORDERED: HEPARIN 1000 UNITS/ML 10 ML INJ (12:08)
[2017-12-20] MEDS ORDERED: IODIXANOL LOCM 100 ML BTL (12:08)
[2017-12-20] MEDS ORDERED: LIDOCAINE 1% (MDV) 20 ML INJ (12:08)
[2017-12-20] MEDS ORDERED: VERAPAMIL 5 MG INJ (12:09)
[2017-12-20] MEDS ORDERED: NITROGLYCERIN (IC) 100 MCG/ML INJ ×2 (12:09→15:12)
[2017-12-20] MEDS ORDERED: FENTAnyl 50 MCG/ML VIAL ×2 (12:09→13:50)
[2017-12-20] MEDS ORDERED: LIDOCAINE 100 MG SYRINGE (15:12)
[2017-12-20] MEDS ORDERED: NALOXONE (0.4 MG/ML) INJ (15:12)
[2017-12-20] MEDS ORDERED: SOD CHLORIDE 0.9% 500 ML (15:12)
[2017-12-20] MEDS ORDERED: VANCOMYCIN 750 MG in SOD CHLORIDE 0.9% 150 ML IVPB (15:15)
[2017-12-20] MEDS ORDERED: AL HYDROX/MG HYDROX/SIMETH 30 ML CUP PO (15:30)
[2017-12-20] MEDS ORDERED: ACETAMINOPHEN 325 MG TAB PO (15:30)
[2017-12-20] MEDS: SOD CHLORIDE 0.9% 1,000 ML IV (16:48)
[2017-12-20] MEDS: VANCOMYCIN 1 GM 250 ML IVPB (18:10)
[2017-12-20] MEDS: FAMOTIDINE 20 MG TAB PO (20:22)
[2017-12-20] MEDS: INSULIN GLARGINE [LANtus] 3 ML PEN SC (20:34)
[2017-12-21] MEDS: SOD CHLORIDE 0.45% 1,000 ML IV (00:47)
[2017-12-21] MEDS: ACCU-CHEK XX (02:00)
[2017-12-21] MEDS: FUROSEMIDE 20 MG INJ IV ×2 (06:17→17:25)
[2017-12-21] MEDS: VANCOMYCIN 1 GM 250 ML IVPB ×2 (06:17→17:24)
[2017-12-21] MEDS: HYDROCODONE/APAP (5/325) TAB PO (06:57)
[2017-12-21] MEDS: INSULIN ASPART [NOVOLOG] 3 ML PEN SC ×7 (08:00→21:26)
[2017-12-21] MEDS: MEROPENEM 1 GM/50ML(PMX) 50 ML IVPB ×2 (09:08→21:08)
[2017-12-21] MEDS: DILTIAZEM (CD) 120 MG CAP PO (09:09)
[2017-12-21] MEDS: ATENOLOL 50 MG TAB PO ×2 (09:09→21:19)
[2017-12-21] MEDS: DULOXETINE 30 MG CAP DR PO (09:09)
[2017-12-21] MEDS: FERROUS SULFATE (EC) 325 MG TAB PO (09:09)
[2017-12-21] MEDS: MUPIROCIN 2% 22 GM OINT TOP ×2 (09:10→21:00)
[2017-12-21] MEDS: APIXABAN 5 MG TABLET PO ×2 (09:23→21:19)
[2017-12-21 09:31] LABS: ADD MAN DIFF? NO
[2017-12-21 09:35] LABS: BASOPHILS % 0.9 % (0.0-2.0); EOSINOPHILS # 0.2 10^3/ul (0.0-0.5); EOSINOPHILS % 3.3 % (0.0-7.0); HEMATOCRIT 41.9 % (42.0-52.0); HEMOGLOBIN 13.4 g/dl (14.0-18.0); LYMPHOCYTES # 0.8 10^3/ul (0.8-2.9); LYMPHOCYTES % 17.9 % (15.0-51.0); MEAN CORPUSCULAR HEMOGLOBIN 25.5 pg (29.0-33.0); MEAN CORPUSCULAR VOLUME 79.7 fl (82.0-101.0); MEAN PLATELET VOLUME 10.1 fl (7.4-10.4); MONOCYTE # 0.6 10^3/ul (0.3-0.9); MONOCYTES % 12.3 % (0.0-11.0); NEUTROPHIL # 2.9 10^3/ul (1.6-7.5); NEUTROPHILS % 65.4 % (39.0-77.0); PLATELET COUNT 207 10^3/UL (140-415); RED BLOOD COUNT 5.26 10^6/ul (4.70-6.10); RED CELL DISTRIBUTION WIDTH 13.9 % (11.5-14.5)
[2017-12-21 09:35] LABS: WHITE BLOOD COUNT 4.5 10^3/ul (4.8-10.8)
[2017-12-21 09:55] LABS: ANION GAP 14 (8-16); BLOOD UREA NITROGEN 28 mg/dl (7-20); CALCIUM 8.6 mg/dl (8.4-10.2); CARBON DIOXIDE 31 mmol/L (21-31); CHLORIDE 105 mmol/L (97-110); CREATININE 1.05 mg/dl (0.61-1.24); GLUCOSE 131 mg/dl (70-220); POTASSIUM 3.9 mmol/L (3.5-5.1); SODIUM 146 mmol/L (135-144)
[2017-12-21] MEDS ORDERED: INSULIN ASPART [NOVOLOG] 3 ML PEN SC (12:00)
[2017-12-21] MEDS: HYDROmorphONE 0.5 MG/0.5 ML SYG IV ×3 (13:41→23:45)
[2017-12-21] MEDS: FAMOTIDINE 20 MG TAB PO (21:19)
[2017-12-21] MEDS: INSULIN GLARGINE [LANtus] 3 ML PEN SC (21:26)
[2017-12-22] MEDS: ACCU-CHEK XX (02:00)
[2017-12-22] MEDS: FUROSEMIDE 20 MG INJ IV ×2 (05:44→17:25)
[2017-12-22] MEDS: VANCOMYCIN 1 GM 250 ML IVPB (05:44)
[2017-12-22] MEDS: INSULIN ASPART [NOVOLOG] 3 ML PEN SC ×8 (08:00→20:42)
[2017-12-22 09:03] LABS: ADD MAN DIFF? NO
[2017-12-22 09:09] LABS: WHITE BLOOD COUNT 4.3 10^3/ul (4.8-10.8)
[2017-12-22 09:09] LABS: BASOPHILS % 0.7 % (0.0-2.0); EOSINOPHILS # 0.2 10^3/ul (0.0-0.5); EOSINOPHILS % 4.4 % (0.0-7.0); HEMATOCRIT 39.1 % (42.0-52.0); HEMOGLOBIN 12.5 g/dl (14.0-18.0); LYMPHOCYTES # 1.4 10^3/ul (0.8-2.9); MEAN CORPUSCULAR VOLUME 78.2 fl (82.0-101.0); MEAN PLATELET VOLUME 10.4 fl (7.4-10.4); MONOCYTE # 0.5 10^3/ul (0.3-0.9); MONOCYTES % 11.5 % (0.0-11.0); NEUTROPHIL # 2.1 10^3/ul (1.6-7.5); NEUTROPHILS % 50.2 % (39.0-77.0); PLATELET COUNT 177 10^3/UL (140-415); RED CELL DISTRIBUTION WIDTH 13.8 % (11.5-14.5)
[2017-12-22] MEDS: APIXABAN 5 MG TABLET PO ×2 (09:21→20:39)
[2017-12-22] MEDS: ATENOLOL 50 MG TAB PO ×2 (09:21→20:40)
[2017-12-22] MEDS: DULOXETINE 30 MG CAP DR PO (09:21)
[2017-12-22] MEDS: MEROPENEM 1 GM/50ML(PMX) 50 ML IVPB ×2 (09:22→20:38)
[2017-12-22] MEDS: DILTIAZEM (CD) 180 MG CAP PO (09:22)
[2017-12-22] MEDS: FERROUS SULFATE (EC) 325 MG TAB PO (09:22)
[2017-12-22] MEDS: COLLAGENASE 30 GM TUBE TOP (09:23)
[2017-12-22] MEDS: MUPIROCIN 2% 22 GM OINT TOP ×2 (09:23→20:44)
[2017-12-22 09:29] LABS: ANION GAP 13 (8-16); BLOOD UREA NITROGEN 23 mg/dl (7-20); CALCIUM 8.7 mg/dl (8.4-10.2); CARBON DIOXIDE 30 mmol/L (21-31); CHLORIDE 106 mmol/L (97-110); CREATININE 0.86 mg/dl (0.61-1.24); GLUCOSE 135 mg/dl (70-220); SODIUM 145 mmol/L (135-144)
[2017-12-22] MEDS: HYDROmorphONE 0.5 MG/0.5 ML SYG IV ×2 (12:01→20:43)
[2017-12-22] MEDS: SOD CHLORIDE 0.45% 1,000 ML IV (12:25)
[2017-12-22] MEDS: DIPHENHYDRAMINE 50 MG INJ IV (13:42)
[2017-12-22 17:33] LABS: VANCOMYCIN,TROUGH 24.7 ug/ml (10.0-20.0)
[2017-12-22] MEDS: FAMOTIDINE 20 MG TAB PO (20:39)
[2017-12-22] MEDS: INSULIN GLARGINE [LANtus] 3 ML PEN SC (20:41)
[2017-12-23] MEDS: HYDROmorphONE 0.5 MG/0.5 ML SYG IV ×2 (01:45→10:53)
[2017-12-23] MEDS: ALPRAZOLAM 0.25 MG TAB PO (01:45)
[2017-12-23] MEDS: ACCU-CHEK XX (01:47)
[2017-12-23] MEDS: FUROSEMIDE 20 MG INJ IV ×2 (05:06→17:55)
[2017-12-23] MEDS: VANCOMYCIN 1 GM 250 ML IVPB (05:06)
[2017-12-23] MEDS: INSULIN ASPART [NOVOLOG] 3 ML PEN SC ×8 (08:00→21:00)
[2017-12-23] MEDS: APIXABAN 5 MG TABLET PO ×2 (09:14→21:02)
[2017-12-23] MEDS: FERROUS SULFATE (EC) 325 MG TAB PO (09:14)
[2017-12-23] MEDS: ATENOLOL 50 MG TAB PO ×2 (09:14→21:03)
[2017-12-23] MEDS: DULOXETINE 30 MG CAP DR PO (09:14)
[2017-12-23] MEDS: COLLAGENASE 30 GM TUBE TOP (09:15)
[2017-12-23] MEDS: DILTIAZEM (CD) 180 MG CAP PO (09:15)
[2017-12-23] MEDS: MUPIROCIN 2% 22 GM OINT TOP ×2 (09:15→21:04)
[2017-12-23] MEDS: MEROPENEM 1 GM/50ML(PMX) 50 ML IVPB ×2 (09:16→21:02)
[2017-12-23 11:08] LABS: ANION GAP 16 (8-16); BLOOD UREA NITROGEN 29 mg/dl (7-20); CALCIUM 8.3 mg/dl (8.4-10.2); CARBON DIOXIDE 25 mmol/L (21-31); CHLORIDE 105 mmol/L (97-110); CREATININE 0.91 mg/dl (0.61-1.24); GLUCOSE 119 mg/dl (70-220); POTASSIUM 4.6 mmol/L (3.5-5.1); SODIUM 141 mmol/L (135-144)
[2017-12-23] MEDS: DIPHENHYDRAMINE 25 MG CAP PO (15:07)
[2017-12-23] MEDS: SOD CHLORIDE 0.45% 1,000 ML IV (15:08)
[2017-12-23] MEDS: FAMOTIDINE 20 MG TAB PO (21:02)
[2017-12-23] MEDS: INSULIN GLARGINE [LANtus] 3 ML PEN SC (21:04)
[2017-12-24] MEDS: ACCU-CHEK XX (01:56)
[2017-12-24] MEDS: VANCOMYCIN 1 GM 250 ML IVPB (05:21)
[2017-12-24] MEDS: FUROSEMIDE 20 MG INJ IV ×2 (05:21→17:44)
[2017-12-24] MEDS: INSULIN ASPART [NOVOLOG] 3 ML PEN SC ×8 (08:00→21:01)
[2017-12-24] MEDS: HYDROmorphONE 0.5 MG/0.5 ML SYG IV ×3 (08:08→20:47)
[2017-12-24] MEDS: APIXABAN 5 MG TABLET PO ×2 (08:32→20:48)
[2017-12-24] MEDS: ATENOLOL 50 MG TAB PO ×2 (08:32→20:49)
[2017-12-24] MEDS: DULOXETINE 30 MG CAP DR PO (08:32)
[2017-12-24] MEDS: FERROUS SULFATE (EC) 325 MG TAB PO (08:32)
[2017-12-24] MEDS: DILTIAZEM (CD) 180 MG CAP PO (08:33)
[2017-12-24] MEDS: MUPIROCIN 2% 22 GM OINT TOP ×2 (09:15→20:54)
[2017-12-24] MEDS: COLLAGENASE 30 GM TUBE TOP (09:15)
[2017-12-24] MEDS: MEROPENEM 1 GM/50ML(PMX) 50 ML IVPB ×2 (09:23→21:11)
[2017-12-24] MEDS: SOD CHLORIDE 0.45% 1,000 ML IV ×2 (11:30→17:55)
[2017-12-24] MEDS: FAMOTIDINE 20 MG TAB PO (20:48)
[2017-12-24] MEDS: INSULIN GLARGINE [LANtus] 3 ML PEN SC (20:59)
[2017-12-25] MEDS: HYDROmorphONE 0.5 MG/0.5 ML SYG IV ×5 (00:57→21:24)
[2017-12-25] MEDS: ACCU-CHEK XX (01:52)
[2017-12-25] MEDS: FUROSEMIDE 20 MG INJ IV ×2 (06:08→17:40)
[2017-12-25] MEDS: VANCOMYCIN 1 GM 250 ML IVPB (06:08)
[2017-12-25] MEDS: ONDANSETRON 4 MG INJ IV (07:00)
[2017-12-25] MEDS: INSULIN ASPART [NOVOLOG] 3 ML PEN SC ×8 (08:24→21:22)
[2017-12-25] MEDS: DULOXETINE 30 MG CAP DR PO (09:25)
[2017-12-25] MEDS: FERROUS SULFATE (EC) 325 MG TAB PO (09:26)
[2017-12-25] MEDS: DILTIAZEM (CD) 180 MG CAP PO (09:26)
[2017-12-25] MEDS: ATENOLOL 50 MG TAB PO ×2 (09:26→21:17)
[2017-12-25] MEDS: APIXABAN 5 MG TABLET PO ×2 (09:26→21:17)
[2017-12-25] MEDS: MUPIROCIN 2% 22 GM OINT TOP ×2 (09:27→21:18)
[2017-12-25] MEDS: COLLAGENASE 30 GM TUBE TOP (09:27)
[2017-12-25] MEDS: MEROPENEM 1 GM/50ML(PMX) 50 ML IVPB ×2 (09:32→21:16)
[2017-12-25] MEDS: NYSTATIN 30 GM POWDER BTL TOP ×2 (14:08→21:18)
[2017-12-25] MEDS: FAMOTIDINE 20 MG TAB PO (21:16)
[2017-12-25] MEDS: INSULIN GLARGINE [LANtus] 3 ML PEN SC (21:21)
[2017-12-26] MEDS: HYDROmorphONE 0.5 MG/0.5 ML SYG IV ×4 (01:33→21:56)
[2017-12-26] MEDS: SOD CHLORIDE 0.45% 1,000 ML IV (01:39)
[2017-12-26] MEDS: ACCU-CHEK XX (02:00)
[2017-12-26 06:10] LABS: ADD MAN DIFF? NO
[2017-12-26 06:17] LABS: WHITE BLOOD COUNT 5.4 10^3/ul (4.8-10.8)
[2017-12-26 06:17] LABS: BASOPHIL # 0.1 10^3/ul (0.0-0.1); BASOPHILS % 1.3 % (0.0-2.0); EOSINOPHILS # 0.5 10^3/ul (0.0-0.5); EOSINOPHILS % 8.8 % (0.0-7.0); HEMATOCRIT 36.4 % (42.0-52.0); HEMOGLOBIN 11.6 g/dl (14.0-18.0); LYMPHOCYTES # 1.6 10^3/ul (0.8-2.9); LYMPHOCYTES % 29.7 % (15.0-51.0); MEAN CORPUSCULAR HEMOGLOBIN 25.6 pg (29.0-33.0); MEAN CORPUSCULAR HGB CONC 31.9 g/dl (32.0-37.0); MEAN CORPUSCULAR VOLUME 80.2 fl (82.0-101.0); MEAN PLATELET VOLUME 10.9 fl (7.4-10.4); MONOCYTE # 0.5 10^3/ul (0.3-0.9); NEUTROPHIL # 2.7 10^3/ul (1.6-7.5); NEUTROPHILS % 50.6 % (39.0-77.0); PLATELET COUNT 189 10^3/UL (140-415); RED BLOOD COUNT 4.54 10^6/ul (4.70-6.10); RED CELL DISTRIBUTION WIDTH 13.9 % (11.5-14.5)
[2017-12-26] MEDS: FUROSEMIDE 20 MG INJ IV ×2 (06:28→18:10)
[2017-12-26 06:47] LABS: VANCOMYCIN,TROUGH 16.6 ug/ml (10.0-20.0)
[2017-12-26 07:06] LABS: ANION GAP 13 (8-16); BLOOD UREA NITROGEN 47 mg/dl (7-20); CALCIUM 8.6 mg/dl (8.4-10.2); CARBON DIOXIDE 31 mmol/L (21-31); CHLORIDE 103 mmol/L (97-110); CREATININE 1.17 mg/dl (0.61-1.24); GLUCOSE 101 mg/dl (70-220); POTASSIUM 4.6 mmol/L (3.5-5.1); SODIUM 142 mmol/L (135-144)
[2017-12-26 07:33] LABS: MAGNESIUM 2.2 mg/dl (1.7-2.5)
[2017-12-26 07:33] LABS: PHOSPHORUS 3.9 mg/dl (2.5-4.9)
[2017-12-26] MEDS: VANCOMYCIN 1 GM 250 ML IVPB (07:37)
[2017-12-26] MEDS: INSULIN ASPART [NOVOLOG] 3 ML PEN SC ×8 (07:44→20:55)
[2017-12-26] MEDS: DULOXETINE 30 MG CAP DR PO (09:00)
[2017-12-26] MEDS: FERROUS SULFATE (EC) 325 MG TAB PO (09:01)
[2017-12-26] MEDS: ATENOLOL 50 MG TAB PO ×2 (09:01→20:46)
[2017-12-26] MEDS: APIXABAN 5 MG TABLET PO ×2 (09:01→20:44)
[2017-12-26] MEDS: DILTIAZEM (CD) 180 MG CAP PO (09:01)
[2017-12-26] MEDS: NYSTATIN 30 GM POWDER BTL TOP ×2 (09:02→21:56)
[2017-12-26] MEDS: COLLAGENASE 30 GM TUBE TOP (09:02)
[2017-12-26] MEDS: MUPIROCIN 2% 22 GM OINT TOP ×2 (09:02→21:56)
[2017-12-26] MEDS: MEROPENEM 1 GM/50ML(PMX) 50 ML IVPB ×2 (09:05→20:44)
[2017-12-26] MEDS: FAMOTIDINE 20 MG TAB PO (20:44)
[2017-12-26] MEDS: INSULIN GLARGINE [LANtus] 3 ML PEN SC (20:54)
[2017-12-27] MEDS: ACCU-CHEK XX (02:00)
[2017-12-27] MEDS: HYDROmorphONE 0.5 MG/0.5 ML SYG IV ×4 (05:57→21:48)
[2017-12-27] MEDS: FUROSEMIDE 20 MG INJ IV ×2 (06:00→17:29)
[2017-12-27] MEDS: INSULIN ASPART [NOVOLOG] 3 ML PEN SC ×8 (09:11→22:19)
[2017-12-27] MEDS: MUPIROCIN 2% 22 GM OINT TOP ×2 (09:13→22:05)
[2017-12-27] MEDS: COLLAGENASE 30 GM TUBE TOP (09:13)
[2017-12-27] MEDS: NYSTATIN 30 GM POWDER BTL TOP ×2 (09:13→22:05)
[2017-12-27] MEDS: MEROPENEM 1 GM/50ML(PMX) 50 ML IVPB ×2 (09:14→22:02)
[2017-12-27] MEDS: DULOXETINE 30 MG CAP DR PO (09:14)
[2017-12-27] MEDS: APIXABAN 5 MG TABLET PO ×2 (09:14→21:48)
[2017-12-27] MEDS: FERROUS SULFATE (EC) 325 MG TAB PO (09:14)
[2017-12-27] MEDS: DILTIAZEM (CD) 180 MG CAP PO (09:15)
[2017-12-27] MEDS: ATENOLOL 50 MG TAB PO ×2 (09:15→22:04)
[2017-12-27] MEDS: VANCOMYCIN 750 MG in DEXTROSE 5% 150 ML IVPB (11:28)
[2017-12-27] MEDS: SOD CHLORIDE 0.45% 1,000 ML IV (11:30)
[2017-12-27] MEDS: FAMOTIDINE 20 MG TAB PO (21:48)
[2017-12-27] MEDS: ONDANSETRON 4 MG INJ IV (21:48)
[2017-12-27] MEDS: INSULIN GLARGINE [LANtus] 3 ML PEN SC (22:13)
[2017-12-28] MEDS: HYDROmorphONE 0.5 MG/0.5 ML SYG IV ×3 (01:51→20:19)
[2017-12-28] MEDS: ACCU-CHEK XX (02:00)
[2017-12-28] MEDS: FUROSEMIDE 20 MG INJ IV ×3 (06:13→20:19)
[2017-12-28] MEDS: INSULIN ASPART [NOVOLOG] 3 ML PEN SC ×8 (08:00→20:36)
[2017-12-28] MEDS: NYSTATIN 30 GM POWDER BTL TOP ×2 (09:00→20:21)
[2017-12-28] MEDS: MEROPENEM 1 GM/50ML(PMX) 50 ML IVPB ×2 (10:10→20:20)
[2017-12-28] MEDS: APIXABAN 5 MG TABLET PO ×2 (10:11→20:20)
[2017-12-28] MEDS: DILTIAZEM (CD) 180 MG CAP PO (10:11)
[2017-12-28] MEDS: DULOXETINE 30 MG CAP DR PO (10:17)
[2017-12-28] MEDS: FERROUS SULFATE (EC) 325 MG TAB PO (10:17)
[2017-12-28] MEDS: COLLAGENASE 30 GM TUBE TOP (10:18)
[2017-12-28] MEDS: MUPIROCIN 2% 22 GM OINT TOP ×2 (10:18→20:21)
[2017-12-28] MEDS: ATENOLOL 50 MG TAB PO ×2 (10:19→20:20)
[2017-12-28 12:07] LABS: ADD MAN DIFF? NO
[2017-12-28 12:11] LABS: BASOPHIL # 0.1 10^3/ul (0.0-0.1); BASOPHILS % 1.5 % (0.0-2.0); EOSINOPHILS # 0.4 10^3/ul (0.0-0.5); EOSINOPHILS % 8.1 % (0.0-7.0); HEMATOCRIT 38.1 % (42.0-52.0); HEMOGLOBIN 12.2 g/dl (14.0-18.0); LYMPHOCYTES # 1.6 10^3/ul (0.8-2.9); LYMPHOCYTES % 30.4 % (15.0-51.0); MEAN CORPUSCULAR HEMOGLOBIN 25.3 pg (29.0-33.0); MEAN PLATELET VOLUME 10.8 fl (7.4-10.4); MONOCYTE # 0.7 10^3/ul (0.3-0.9); MONOCYTES % 12.2 % (0.0-11.0); NEUTROPHIL # 2.5 10^3/ul (1.6-7.5); NEUTROPHILS % 47.2 % (39.0-77.0); PLATELET COUNT 238 10^3/UL (140-415); RED BLOOD COUNT 4.82 10^6/ul (4.70-6.10); RED CELL DISTRIBUTION WIDTH 13.7 % (11.5-14.5)
[2017-12-28 12:11] LABS: WHITE BLOOD COUNT 5.3 10^3/ul (4.8-10.8)
[2017-12-28 12:52] LABS: ANION GAP 14 (8-16); BLOOD UREA NITROGEN 42 mg/dl (7-20); CALCIUM 9.1 mg/dl (8.4-10.2); CARBON DIOXIDE 33 mmol/L (21-31); CHLORIDE 101 mmol/L (97-110); GLUCOSE 72 mg/dl (70-220); POTASSIUM 4.2 mmol/L (3.5-5.1); SODIUM 144 mmol/L (135-144)
[2017-12-28] MEDS: VANCOMYCIN 750 MG in DEXTROSE 5% 150 ML IVPB (12:52)
[2017-12-28] MEDS: SOD CHLORIDE 0.45% 1,000 ML IV (12:52)
[2017-12-28] MEDS: HYDROCODONE/APAP (5/325) TAB PO (18:23)
[2017-12-28] MEDS: FAMOTIDINE 20 MG TAB PO (20:20)
[2017-12-28] MEDS: INSULIN GLARGINE [LANtus] 3 ML PEN SC (20:34)
[2017-12-29] MEDS: ACCU-CHEK XX (02:00)
[2017-12-29] MEDS: HYDROmorphONE 0.5 MG/0.5 ML SYG IV ×5 (02:06→22:55)
[2017-12-29] MEDS: FUROSEMIDE 20 MG INJ IV ×2 (06:37→17:28)
[2017-12-29] MEDS: INSULIN ASPART [NOVOLOG] 3 ML PEN SC ×8 (08:15→21:00)
[2017-12-29] MEDS: APIXABAN 5 MG TABLET PO ×2 (08:50→20:46)
[2017-12-29] MEDS: FERROUS SULFATE (EC) 325 MG TAB PO (08:50)
[2017-12-29] MEDS: DULOXETINE 30 MG CAP DR PO (08:50)
[2017-12-29] MEDS: DILTIAZEM (CD) 180 MG CAP PO (08:54)
[2017-12-29] MEDS: ATENOLOL 50 MG TAB PO ×2 (08:55→20:48)
[2017-12-29] MEDS: MUPIROCIN 2% 22 GM OINT TOP ×2 (08:56→20:49)
[2017-12-29] MEDS: VANCOMYCIN 750 MG in DEXTROSE 5% 150 ML IVPB (12:20)
[2017-12-29] MEDS: MEROPENEM 1 GM/50ML(PMX) 50 ML IVPB ×2 (12:20→20:49)
[2017-12-29 14:55] LABS: CREATININE 1.18 mg/dl (0.61-1.24)
[2017-12-29 14:55] LABS: BLOOD UREA NITROGEN 47 mg/dl (7-20)
[2017-12-29] MEDS: NYSTATIN 30 GM POWDER BTL TOP ×2 (15:26→20:50)
[2017-12-29] MEDS: COLLAGENASE 30 GM TUBE TOP (15:27)
[2017-12-29] MEDS: SOD CHLORIDE 0.45% 1,000 ML IV (17:26)
[2017-12-29] MEDS: FAMOTIDINE 20 MG TAB PO (20:46)
[2017-12-29] MEDS: INSULIN GLARGINE [LANtus] 3 ML PEN SC (20:53)
[2017-12-30] MEDS: ACCU-CHEK XX (02:18)
[2017-12-30] MEDS: HYDROmorphONE 0.5 MG/0.5 ML SYG IV ×7 (04:14→22:01)
[2017-12-30] MEDS: FUROSEMIDE 20 MG INJ IV ×2 (05:56→18:00)
[2017-12-30] MEDS: INSULIN ASPART [NOVOLOG] 3 ML PEN SC ×8 (08:15→21:11)
[2017-12-30] MEDS: COLLAGENASE 30 GM TUBE TOP (09:00)
[2017-12-30] MEDS: DILTIAZEM (CD) 180 MG CAP PO (12:02)
[2017-12-30] MEDS: FERROUS SULFATE (EC) 325 MG TAB PO (12:03)
[2017-12-30] MEDS: DULOXETINE 30 MG CAP DR PO (12:03)
[2017-12-30] MEDS: APIXABAN 5 MG TABLET PO ×2 (12:03→20:54)
[2017-12-30] MEDS: ATENOLOL 50 MG TAB PO ×2 (12:04→20:55)
[2017-12-30] MEDS: ALPRAZOLAM 0.25 MG TAB PO (12:30)
[2017-12-30 12:43] LABS: VANCOMYCIN,TROUGH 16.2 ug/ml (10.0-20.0)
[2017-12-30] MEDS: NYSTATIN 30 GM POWDER BTL TOP ×2 (17:00→21:12)
[2017-12-30] MEDS: MUPIROCIN 2% 22 GM OINT TOP ×2 (18:26→21:14)
[2017-12-30] MEDS: SOD CHLORIDE 0.45% 1,000 ML IV (20:51)
[2017-12-30] MEDS: FAMOTIDINE 20 MG TAB PO (20:55)
[2017-12-30] MEDS: INSULIN GLARGINE [LANtus] 3 ML PEN SC (21:06)
[2017-12-31] MEDS: ACCU-CHEK XX (01:19)
[2017-12-31] MEDS: HYDROmorphONE 0.5 MG/0.5 ML SYG IV ×5 (01:59→18:47)
[2017-12-31] MEDS: FUROSEMIDE 20 MG INJ IV ×2 (06:04→17:30)
[2017-12-31] MEDS: INSULIN ASPART [NOVOLOG] 3 ML PEN SC ×8 (08:15→20:59)
[2017-12-31] MEDS: DULOXETINE 30 MG CAP DR PO (08:24)
[2017-12-31] MEDS: APIXABAN 5 MG TABLET PO ×2 (08:24→20:49)
[2017-12-31] MEDS: FERROUS SULFATE (EC) 325 MG TAB PO (08:24)
[2017-12-31] MEDS: MUPIROCIN 2% 22 GM OINT TOP ×2 (08:28→21:01)
[2017-12-31] MEDS: ATENOLOL 50 MG TAB PO ×2 (08:30→20:50)
[2017-12-31] MEDS: DILTIAZEM (CD) 180 MG CAP PO (08:31)
[2017-12-31] MEDS: COLLAGENASE 30 GM TUBE TOP (08:32)
[2017-12-31] MEDS: NYSTATIN 30 GM POWDER BTL TOP ×2 (08:32→21:02)
[2017-12-31] MEDS: FAMOTIDINE 20 MG TAB PO (20:51)
[2017-12-31] MEDS: INSULIN GLARGINE [LANtus] 3 ML PEN SC (20:59)
[2017-12-31] MEDS: SOD CHLORIDE 0.45% 1,000 ML IV (21:05)
[2018-01-01] MEDS: HYDROmorphONE 0.5 MG/0.5 ML SYG IV ×4 (00:46→17:44)
[2018-01-01] MEDS: ACCU-CHEK XX (02:04)
[2018-01-01] MEDS: FUROSEMIDE 20 MG INJ IV ×2 (06:01→17:43)
[2018-01-01] MEDS: APIXABAN 5 MG TABLET PO ×2 (08:01→21:13)
[2018-01-01] MEDS: FERROUS SULFATE (EC) 325 MG TAB PO (08:01)
[2018-01-01] MEDS: DULOXETINE 30 MG CAP DR PO (08:01)
[2018-01-01] MEDS: ATENOLOL 50 MG TAB PO ×2 (08:01→21:13)
[2018-01-01] MEDS: NYSTATIN 30 GM POWDER BTL TOP ×2 (08:02→21:14)
[2018-01-01] MEDS: DILTIAZEM (CD) 180 MG CAP PO (08:02)
[2018-01-01] MEDS: INSULIN ASPART [NOVOLOG] 3 ML PEN SC ×8 (08:15→23:03)
[2018-01-01] MEDS: MUPIROCIN 2% 22 GM OINT TOP ×2 (08:58→21:14)
[2018-01-01] MEDS: COLLAGENASE 30 GM TUBE TOP (08:58)
[2018-01-01] MEDS: SOD CHLORIDE 0.45% 1,000 ML IV (19:54)
[2018-01-01] MEDS: KETOROLAC 15 MG INJ IV (21:05)
[2018-01-01] MEDS: FAMOTIDINE 20 MG TAB PO (21:13)
[2018-01-01] MEDS: INSULIN GLARGINE [LANtus] 3 ML PEN SC (22:59)
[2018-01-02] MEDS: ACCU-CHEK XX (02:21)
[2018-01-02] MEDS: HYDROmorphONE 0.5 MG/0.5 ML SYG IV ×6 (02:29→22:56)
[2018-01-02] MEDS: ALPRAZOLAM 0.25 MG TAB PO ×2 (02:53→16:53)
[2018-01-02] MEDS: FUROSEMIDE 20 MG INJ IV ×2 (05:46→18:42)
[2018-01-02] MEDS: INSULIN ASPART [NOVOLOG] 3 ML PEN SC ×9 (08:15→23:00)
[2018-01-02] MEDS: ATENOLOL 50 MG TAB PO ×2 (10:31→21:31)
[2018-01-02] MEDS: DULOXETINE 30 MG CAP DR PO (10:31)
[2018-01-02] MEDS: DILTIAZEM (CD) 180 MG CAP PO (10:31)
[2018-01-02] MEDS: FERROUS SULFATE (EC) 325 MG TAB PO (10:32)
[2018-01-02] MEDS: APIXABAN 5 MG TABLET PO ×2 (11:24→21:31)
[2018-01-02] MEDS: MUPIROCIN 2% 22 GM OINT TOP ×2 (12:25→21:33)
[2018-01-02] MEDS: NYSTATIN 30 GM POWDER BTL TOP ×2 (12:25→21:36)
[2018-01-02] MEDS: COLLAGENASE 30 GM TUBE TOP (16:50)
[2018-01-02] MEDS: FAMOTIDINE 20 MG TAB PO (21:31)
[2018-01-02] MEDS: SOD CHLORIDE 0.45% 1,000 ML IV (21:36)
[2018-01-02] MEDS: INSULIN GLARGINE [LANtus] 3 ML PEN SC (21:44)
[2018-01-03] MEDS: ALPRAZOLAM 0.25 MG TAB PO ×2 (00:11→10:24)
[2018-01-03] MEDS: ACCU-CHEK XX (02:12)
[2018-01-03] MEDS: HYDROmorphONE 0.5 MG/0.5 ML SYG IV ×5 (02:59→21:03)
[2018-01-03] MEDS: FUROSEMIDE 20 MG INJ IV ×2 (06:59→17:16)
[2018-01-03] MEDS: INSULIN ASPART [NOVOLOG] 3 ML PEN SC ×8 (08:12→21:06)
[2018-01-03] MEDS: DULOXETINE 30 MG CAP DR PO (08:14)
[2018-01-03] MEDS: ATENOLOL 50 MG TAB PO ×2 (08:15→21:01)
[2018-01-03] MEDS: APIXABAN 5 MG TABLET PO ×2 (08:16→21:01)
[2018-01-03] MEDS: FERROUS SULFATE (EC) 325 MG TAB PO (08:16)
[2018-01-03] MEDS: DILTIAZEM (CD) 180 MG CAP PO (08:44)
[2018-01-03] MEDS: MUPIROCIN 2% 22 GM OINT TOP ×2 (08:52→21:02)
[2018-01-03] MEDS: NYSTATIN 30 GM POWDER BTL TOP ×2 (08:52→21:01)
[2018-01-03] MEDS: COLLAGENASE 30 GM TUBE TOP (08:53)
[2018-01-03] MEDS: FAMOTIDINE 20 MG TAB PO (21:00)
[2018-01-03] MEDS: INSULIN GLARGINE [LANtus] 3 ML PEN SC (21:04)
[2018-01-04] MEDS: ACCU-CHEK XX (02:56)
[2018-01-04] MEDS: FUROSEMIDE 20 MG INJ IV ×2 (05:47→17:27)
[2018-01-04 06:27] LABS: ADD MAN DIFF? NO
[2018-01-04 06:41] LABS: BASOPHIL # 0.1 10^3/ul (0.0-0.1); BASOPHILS % 1.5 % (0.0-2.0); EOSINOPHILS # 0.7 10^3/ul (0.0-0.5); HEMATOCRIT 38.7 % (42.0-52.0); HEMOGLOBIN 12.5 g/dl (14.0-18.0); LYMPHOCYTES # 1.8 10^3/ul (0.8-2.9); MEAN CORPUSCULAR HEMOGLOBIN 25.5 pg (29.0-33.0); MEAN CORPUSCULAR HGB CONC 32.3 g/dl (32.0-37.0); MEAN CORPUSCULAR VOLUME 78.8 fl (82.0-101.0); MEAN PLATELET VOLUME 9.9 fl (7.4-10.4); MONOCYTE # 0.5 10^3/ul (0.3-0.9); MONOCYTES % 9.1 % (0.0-11.0); NEUTROPHIL # 2.2 10^3/ul (1.6-7.5); NEUTROPHILS % 41.8 % (39.0-77.0); PLATELET COUNT 227 10^3/UL (140-415); RED BLOOD COUNT 4.91 10^6/ul (4.70-6.10); RED CELL DISTRIBUTION WIDTH 14.6 % (11.5-14.5)
[2018-01-04 06:41] LABS: WHITE BLOOD COUNT 5.3 10^3/ul (4.8-10.8)
[2018-01-04 07:46] LABS: IRON 68 ug/dl (35-150)
[2018-01-04 07:48] LABS: ANION GAP 13 (8-16); BLOOD UREA NITROGEN 49 mg/dl (7-20); CALCIUM 9.1 mg/dl (8.4-10.2); CARBON DIOXIDE 29 mmol/L (21-31); CHLORIDE 107 mmol/L (97-110); GLUCOSE 76 mg/dl (70-220); POTASSIUM 4.4 mmol/L (3.5-5.1); SODIUM 145 mmol/L (135-144)
[2018-01-04] MEDS: INSULIN ASPART [NOVOLOG] 3 ML PEN SC ×8 (07:48→20:27)
[2018-01-04 07:56] LABS: % IRON SATURATION 23 % SAT (22-52); TOTAL IRON BINDING CAPACITY 290 ug/dl (241-421)
[2018-01-04] MEDS: ATENOLOL 50 MG TAB PO ×2 (08:49→20:19)
[2018-01-04] MEDS: FERROUS SULFATE (EC) 325 MG TAB PO (08:49)
[2018-01-04] MEDS: MUPIROCIN 2% 22 GM OINT TOP ×2 (08:50→20:19)
[2018-01-04] MEDS: NYSTATIN 30 GM POWDER BTL TOP ×2 (08:50→20:18)
[2018-01-04] MEDS: DULOXETINE 30 MG CAP DR PO (08:50)
[2018-01-04] MEDS: APIXABAN 5 MG TABLET PO ×2 (08:50→20:18)
[2018-01-04] MEDS: COLLAGENASE 30 GM TUBE TOP (08:51)
[2018-01-04] MEDS: HYDROmorphONE 0.5 MG/0.5 ML SYG IV ×3 (08:59→20:18)
[2018-01-04] MEDS: DILTIAZEM (CD) 180 MG CAP PO (10:49)
[2018-01-04] MEDS ORDERED: ZOLPIDEM 5 MG TAB PO (12:30)
[2018-01-04] MEDS: FAMOTIDINE 20 MG TAB PO (20:18)
[2018-01-04] MEDS: INSULIN GLARGINE [LANtus] 3 ML PEN SC (20:26)
[2018-01-04] MEDS: ALPRAZOLAM 0.25 MG TAB PO (22:55)
[2018-01-05] MEDS: HYDROmorphONE 0.5 MG/0.5 ML SYG IV ×6 (00:35→17:51)
[2018-01-05] MEDS: ACCU-CHEK XX (01:55)
[2018-01-05] MEDS: FUROSEMIDE 20 MG INJ IV ×2 (05:47→17:58)
[2018-01-05] MEDS: INSULIN ASPART [NOVOLOG] 3 ML PEN SC ×6 (08:09→17:55)
[2018-01-05] MEDS: FERROUS SULFATE (EC) 325 MG TAB PO (09:04)
[2018-01-05] MEDS: DULOXETINE 30 MG CAP DR PO (09:05)
[2018-01-05] MEDS: APIXABAN 5 MG TABLET PO (09:05)
[2018-01-05] MEDS: DILTIAZEM (CD) 180 MG CAP PO (09:05)
[2018-01-05] MEDS: HYDROCODONE/APAP (5/325) TAB PO (09:14)
[2018-01-05] MEDS: ATENOLOL 50 MG TAB PO (09:15)
[2018-01-05] MEDS: MUPIROCIN 2% 22 GM OINT TOP (10:07)
[2018-01-05] MEDS: NYSTATIN 30 GM POWDER BTL TOP (10:07)
[2018-01-05] MEDS: ALPRAZOLAM 0.25 MG TAB PO ×2 (10:08→17:50)
[2018-01-05] MEDS: COLLAGENASE 30 GM TUBE TOP (12:15)
[2018-01-05] MEDS: NITROGLYCERIN (SL) 0.4 MG TAB SL (12:50)
[2018-01-05 14:48] LABS: TROPONIN-I < 0.012 ng/ml (0.00-0.12)
== END 2018-01-05 18:50 | DRG 286 ==
LOC: MS2 12-29 02:48 → E/R 05:46 → MS4 16:01
PROC: 4A023N8 Measurement of Cardiac Sampling and Pressure, Bilateral, Percutaneous Approach (ICD-10-PCS; principal; 2017-12-20 12:25)
PROC: 4A133B3 Monitoring of Arterial Pressure, Pulmonary, Percutaneous Approach (ICD-10-PCS; 2017-12-20 12:25)
PROC: 4A1239Z Monitoring of Cardiac Output, Percutaneous Approach (ICD-10-PCS; 2017-12-20 12:25)
PROC: B2011ZZ Plain Radiography of Multiple Coronary Arteries using Low Osmolar Contrast (ICD-10-PCS; 2017-12-20 12:25)
PROC: B2061ZZ Plain Radiography of Right and Left Heart using Low Osmolar Contrast (ICD-10-PCS; 2017-12-20 12:25)
DX: I35.0 Nonrheumatic aortic (valve) stenosis (principal); I50.33 Acute on chronic diastolic (congestive) heart failure; E87.0 Hyperosmolality and hypernatremia; I48.92 Unspecified atrial flutter; N39.0 Urinary tract infection, site not specified; I11.0 Hypertensive heart disease with heart failure; E11.9 Type 2 diabetes mellitus without complications; Z79.4 Long term (current) use of insulin; Z89.512 Acquired absence of left leg below knee; Z89.511 Acquired absence of right leg below knee; Z79.01 Long term (current) use of anticoagulants; I48.91 Unspecified atrial fibrillation; B96.20 Unspecified Escherichia coli [E. coli] as the cause of diseases classified elsewhere; B95.2 Enterococcus as the cause of diseases classified elsewhere; Z16.12 Extended spectrum beta lactamase (ESBL) resistance; R07.89 Other chest pain; I25.10 Atherosclerotic heart disease of native coronary artery without angina pectoris; Z87.891 Personal history of nicotine dependence; I25.5 Ischemic cardiomyopathy
CPT/HCPCS: 71045; 80048; 80061; 80202; 81001; 82465; 82550; 82553; 82565; 82728; 82962; 83036; 83540; 83735; 83880; 84100; 84443; 84484; 84520; 85025; 85610; 85730; 87081; 87086; 93005; 93460; 96372; 96374; 96375; 99285-25

== ENCOUNTER 2018-01-09 16:59 | Inpatient (IN) | payer MEDICARE, MEDICAID ==
[2018-01-09] MEDS: OXYCODONE/ACETAMINOPHEN (5/325) TAB PO (17:35)
[2018-01-09 18:10] LABS: ADD MAN DIFF? NO
[2018-01-09 18:12] LABS: WHITE BLOOD COUNT 8.8 10^3/ul (4.8-10.8)
[2018-01-09 18:12] LABS: BASOPHIL # 0.1 10^3/ul (0.0-0.1); BASOPHILS % 0.9 % (0.0-2.0); EOSINOPHILS # 1.1 10^3/ul (0.0-0.5); EOSINOPHILS % 12.1 % (0.0-7.0); HEMATOCRIT 39.8 % (42.0-52.0); HEMOGLOBIN 12.9 g/dl (14.0-18.0); LYMPHOCYTES # 2.8 10^3/ul (0.8-2.9); LYMPHOCYTES % 31.7 % (15.0-51.0); MEAN CORPUSCULAR HEMOGLOBIN 25.6 pg (29.0-33.0); MEAN CORPUSCULAR HGB CONC 32.4 g/dl (32.0-37.0); MEAN CORPUSCULAR VOLUME 79.1 fl (82.0-101.0); MEAN PLATELET VOLUME 10.4 fl (7.4-10.4); MONOCYTE # 0.8 10^3/ul (0.3-0.9); MONOCYTES % 9.2 % (0.0-11.0); NEUTROPHIL # 4.1 10^3/ul (1.6-7.5); NEUTROPHILS % 45.9 % (39.0-77.0); PLATELET COUNT 239 10^3/UL (140-415); RED BLOOD COUNT 5.03 10^6/ul (4.70-6.10); RED CELL DISTRIBUTION WIDTH 14.6 % (11.5-14.5)
[2018-01-09 18:33] LABS: ALANINE AMINOTRANSFERASE 99 IU/L (13-69); ALBUMIN 3.9 g/dl (3.3-4.9); ALBUMIN/GLOBULIN RATIO 0.79; ALKALINE PHOSPHATASE 230 IU/L (42-121); ANION GAP 15 (8-16); ASPARTATE AMINO TRANSFERASE 75 IU/L (15-46); BILIRUBIN,INDIRECT 0.7 mg/dl (0-1.1); BILIRUBIN,TOTAL 0.7 mg/dl (0.2-1.3); BLOOD UREA NITROGEN 51 mg/dl (7-20); CALCIUM 9.1 mg/dl (8.4-10.2); CARBON DIOXIDE 28 mmol/L (21-31); CHLORIDE 103 mmol/L (97-110); CREATININE 1.22 mg/dl (0.61-1.24); GLUCOSE 212 mg/dl (70-220); LIPASE 176 U/L (23-300); POTASSIUM 4.7 mmol/L (3.5-5.1); SODIUM 141 mmol/L (135-144); TOTAL PROTEIN 8.8 g/dl (6.1-8.1)
[2018-01-09 18:34] LABS: INR 1.39; PARTIAL THROMBOPLASTIN TIME 40.8 Sec (25.0-35.0); PROTIME 17.3 Sec (11.9-14.9); PT RATIO 1.4
[2018-01-09 18:44] LABS: B-TYPE NATRIURETIC PEPTIDE 3010 PG/ML (0-125)
[2018-01-09 18:48] LABS: TROPONIN-I < 0.012 ng/ml (0.00-0.12)
[2018-01-09 19:34] LABS: ADD UMIC YES; UR ASCORBIC ACID 40 mg/dL (NEGATIVE); UR BACTERIA FEW /HPF (NONE SEEN); UR BILIRUBIN (Dip) NEGATIVE (NEGATIVE); UR BLOOD (Dip) NEGATIVE (NEGATIVE); UR BUDDING YEAST MODERATE /HPF (NONE SEEN); UR CLARITY SLIGHTLY CLOUDY (CLEAR); UR COLOR YELLOW (YELLOW); UR GLUCOSE (Dip) NEGATIVE (NEGATIVE); UR KETONES (Dip) NEGATIVE (NEGATIVE); UR LEUKOCYTE ESTERASE (Dip) 3+ Leu/ul (NEGATIVE); UR NITRITE (Dip) NEGATIVE (NEGATIVE); UR RBC 22 /HPF (0-5); UR SPECIFIC GRAVITY (Dip) 1.014 (1.003-1.030); UR TOTAL PROTEIN (Dip) NEGATIVE (NEGATIVE); UR UROBILINOGEN (Dip) NEGATIVE (NEGATIVE); UR WBC 63 /HPF (0-5)
[2018-01-09] MEDS: FUROSEMIDE 40 MG INJ IV (21:27)
[2018-01-09] MEDS ORDERED: CEFEPIME 1GM/50 ML (PMX) 50 ML IVPB (23:00)
[2018-01-09] MEDS: LEVOFLOXACIN 500MG/D5W (PMX) 100 ML IVPB (23:49)
[2018-01-10] MEDS: OXYCODONE/ACETAMINOPHEN (5/325) TAB PO ×2 (00:11→21:49)
[2018-01-10] MEDS: ASPIRIN 81 MG TAB PO (00:25)
[2018-01-10] MEDS ORDERED: morphine 2 MG INJ IV (05:00)
[2018-01-10] MEDS ORDERED: DEXTROSE 50% 50 ML SYRINGE IV ×2 (05:30)
[2018-01-10] MEDS ORDERED: GLUCOSE GEL 15 GRAM TUBE BUCCAL (05:30)
[2018-01-10] MEDS ORDERED: GLUCAGON 1 MG INJ IM (05:30)
[2018-01-10] MEDS ORDERED: GLUCOSE GEL 15 GRAM TUBE PO ×2 (05:30)
[2018-01-10] MEDS ORDERED: PENDING SANTYL ORDER FOR WOUND CARE XX (06:30)
[2018-01-10] MEDS: FUROSEMIDE 20 MG TAB PO ×2 (06:43→17:40)
[2018-01-10 07:32] LABS: ADD MAN DIFF? NO
[2018-01-10 07:34] LABS: BASOPHILS % 0.5 % (0.0-2.0); EOSINOPHILS # 0.9 10^3/ul (0.0-0.5); EOSINOPHILS % 10.8 % (0.0-7.0); HEMATOCRIT 39.1 % (42.0-52.0); HEMOGLOBIN 12.9 g/dl (14.0-18.0); LYMPHOCYTES # 2.3 10^3/ul (0.8-2.9); LYMPHOCYTES % 29.4 % (15.0-51.0); MEAN CORPUSCULAR HEMOGLOBIN 26.2 pg (29.0-33.0); MEAN CORPUSCULAR VOLUME 79.5 fl (82.0-101.0); MEAN PLATELET VOLUME 10.9 fl (7.4-10.4); MONOCYTE # 0.7 10^3/ul (0.3-0.9); MONOCYTES % 8.2 % (0.0-11.0); NEUTROPHILS % 50.8 % (39.0-77.0); PLATELET COUNT 230 10^3/UL (140-415); RED BLOOD COUNT 4.92 10^6/ul (4.70-6.10); RED CELL DISTRIBUTION WIDTH 14.6 % (11.5-14.5)
[2018-01-10 07:34] LABS: WHITE BLOOD COUNT 7.9 10^3/ul (4.8-10.8)
[2018-01-10 07:49] LABS: HEMOGLOBIN A1C 6.9 % (0-5.9)
[2018-01-10 08:08] LABS: ALANINE AMINOTRANSFERASE 85 IU/L (13-69); ALBUMIN 3.9 g/dl (3.3-4.9); ALBUMIN/GLOBULIN RATIO 0.79; ALKALINE PHOSPHATASE 214 IU/L (42-121); ANION GAP 15 (8-16); ASPARTATE AMINO TRANSFERASE 53 IU/L (15-46); BILIRUBIN,INDIRECT 0.7 mg/dl (0-1.1); BILIRUBIN,TOTAL 0.7 mg/dl (0.2-1.3); BLOOD UREA NITROGEN 54 mg/dl (7-20); CARBON DIOXIDE 29 mmol/L (21-31); CHLORIDE 102 mmol/L (97-110); CREATININE 1.42 mg/dl (0.61-1.24); GLUCOSE 257 mg/dl (70-220); MAGNESIUM 1.9 mg/dl (1.7-2.5); POTASSIUM 4.3 mmol/L (3.5-5.1); SODIUM 142 mmol/L (135-144); TOTAL PROTEIN 8.8 g/dl (6.1-8.1)
[2018-01-10 08:14] LABS: TROPONIN-I 0.022 ng/ml (0.00-0.12)
[2018-01-10] MEDS: FERROUS SULFATE (EC) 325 MG TAB PO (08:21)
[2018-01-10] MEDS: APIXABAN 5 MG TABLET PO ×2 (08:21→21:07)
[2018-01-10] MEDS: CIPROFLOXACIN 400MG/D5W 200 ML IVPB (08:21)
[2018-01-10] MEDS: INSULIN ASPART [NOVOLOG] 3 ML PEN SC ×8 (08:24→21:09)
[2018-01-10] MEDS ORDERED: HEPARIN 5,000 UNIT/0.5 ML VIAL SC (09:00)
[2018-01-10] MEDS: DIPHENHYDRAMINE 50 MG INJ IV (11:30)
[2018-01-10] MEDS: METHYLPREDNISOLONE 125 MG INJ IV (11:30)
[2018-01-10] MEDS ORDERED: ONDANSETRON 4 MG INJ IV (13:30)
[2018-01-10 13:55] LABS: FREE T4 (FREE THYROXINE) 1.49 ng/dl (0.78-2.44)
[2018-01-10 15:51] LABS: TROPONIN-I 0.013 ng/ml (0.00-0.12)
[2018-01-10] MEDS: NITROGLYCERIN (SL) 0.4 MG TAB SL ×3 (18:13→18:34)
[2018-01-10 18:29] LABS: CREATININE,URINE RANDOM 49.61 mg/dl (20-370); PROTEIN/CREAT RATIO 0.54 RATIO
[2018-01-10] MEDS: DILTIAZEM 125 MG in DEXTROSE 5% 100 ML IV ×2 (18:56→20:00)
[2018-01-10] MEDS ORDERED: DILTIAZEM-D5W 125MG/125ML DRIP 125 ML IV (19:00)
[2018-01-10] MEDS: DILTIAZEM (CD) 180 MG CAP PO ×2 (19:00→19:18)
[2018-01-10] MEDS: ATENOLOL 50 MG TAB PO (21:06)
[2018-01-10] MEDS: INSULIN GLARGINE [LANtus] 3 ML PEN SC (21:08)
[2018-01-10 23:49] LABS: TROPONIN-I < 0.012 ng/ml (0.00-0.12)
[2018-01-11] MEDS: ACCU-CHEK XX (02:00)
[2018-01-11] MEDS: INSULIN ASPART [NOVOLOG] 3 ML PEN SC ×9 (02:48→21:00)
[2018-01-11 03:37] LABS: GLUCOSE 593 mg/dl (70-220)
[2018-01-11] MEDS ORDERED: OXYCODONE/ACETAMINOPHEN (5/325) TAB PO (05:00)
[2018-01-11] MEDS: FUROSEMIDE 20 MG TAB PO ×2 (05:36→18:39)
[2018-01-11] MEDS: APIXABAN 5 MG TABLET PO ×2 (08:25→20:37)
[2018-01-11] MEDS: ATENOLOL 50 MG TAB PO ×2 (08:25→20:37)
[2018-01-11] MEDS: FERROUS SULFATE (EC) 325 MG TAB PO (08:25)
[2018-01-11] MEDS: DILTIAZEM (CD) 180 MG CAP PO (08:33)
[2018-01-11] MEDS ORDERED: DILTIAZEM 25 MG INJ IV (16:00)
[2018-01-11] MEDS: HYDROmorphONE 0.5 MG/0.5 ML SYG IV ×2 (17:55→22:15)
[2018-01-11] MEDS: INSULIN GLARGINE [LANtus] 3 ML PEN SC (20:40)
[2018-01-12] MEDS: ACCU-CHEK XX (02:00)
[2018-01-12] MEDS: HYDROmorphONE 0.5 MG/0.5 ML SYG IV ×3 (03:08→15:03)
[2018-01-12] MEDS: FUROSEMIDE 20 MG TAB PO ×2 (06:00→17:17)
[2018-01-12] MEDS: INSULIN ASPART [NOVOLOG] 3 ML PEN SC ×8 (08:21→21:46)
[2018-01-12 08:27] LABS: ADD MAN DIFF? NO
[2018-01-12 08:29] LABS: BASOPHIL # 0.1 10^3/ul (0.0-0.1); BASOPHILS % 0.9 % (0.0-2.0); EOSINOPHILS # 0.4 10^3/ul (0.0-0.5); EOSINOPHILS % 6.3 % (0.0-7.0); HEMATOCRIT 38.9 % (42.0-52.0); HEMOGLOBIN 12.6 g/dl (14.0-18.0); LYMPHOCYTES # 2.2 10^3/ul (0.8-2.9); LYMPHOCYTES % 34.9 % (15.0-51.0); MEAN CORPUSCULAR HGB CONC 32.4 g/dl (32.0-37.0); MEAN CORPUSCULAR VOLUME 80.4 fl (82.0-101.0); MEAN PLATELET VOLUME 11.2 fl (7.4-10.4); MONOCYTE # 0.4 10^3/ul (0.3-0.9); MONOCYTES % 6.6 % (0.0-11.0); NEUTROPHIL # 3.3 10^3/ul (1.6-7.5); PLATELET COUNT 195 10^3/UL (140-415); RED BLOOD COUNT 4.84 10^6/ul (4.70-6.10); RED CELL DISTRIBUTION WIDTH 15.1 % (11.5-14.5)
[2018-01-12 08:29] LABS: WHITE BLOOD COUNT 6.4 10^3/ul (4.8-10.8)
[2018-01-12 08:43] LABS: ANION GAP 15 (8-16); BLOOD UREA NITROGEN 48 mg/dl (7-20); CALCIUM 8.9 mg/dl (8.4-10.2); CARBON DIOXIDE 27 mmol/L (21-31); CHLORIDE 105 mmol/L (97-110); CREATININE 1.17 mg/dl (0.61-1.24); GLUCOSE 275 mg/dl (70-220); POTASSIUM 4.3 mmol/L (3.5-5.1); SODIUM 143 mmol/L (135-144)
[2018-01-12] MEDS: ATENOLOL 50 MG TAB PO ×2 (09:00→22:13)
[2018-01-12] MEDS: DILTIAZEM (CD) 180 MG CAP PO (09:22)
[2018-01-12] MEDS: FERROUS SULFATE (EC) 325 MG TAB PO (09:22)
[2018-01-12] MEDS: ENOXAPARIN 80 MG/0.8 ML SYG SC (09:30)
[2018-01-12] MEDS: INSULIN GLARGINE [LANtus] 3 ML PEN SC (20:38)
[2018-01-13] MEDS: ACCU-CHEK XX (02:00)
[2018-01-13] MEDS: FUROSEMIDE 20 MG TAB PO ×2 (06:19→18:40)
[2018-01-13] MEDS: INSULIN ASPART [NOVOLOG] 3 ML PEN SC ×8 (07:43→23:45)
[2018-01-13] MEDS: HYDROmorphONE 0.5 MG/0.5 ML SYG IV ×3 (09:23→20:29)
[2018-01-13] MEDS: ATENOLOL 50 MG TAB PO ×2 (09:48→21:32)
[2018-01-13] MEDS: DILTIAZEM (CD) 180 MG CAP PO (09:48)
[2018-01-13] MEDS: FERROUS SULFATE (EC) 325 MG TAB PO (09:48)
[2018-01-13] MEDS: ENOXAPARIN 80 MG/0.8 ML SYG SC (09:54)
[2018-01-13] MEDS: ACETAMINOPHEN 325 MG TAB PO (11:25)
[2018-01-13] MEDS: NITROGLYCERIN (SL) 0.4 MG TAB SL (11:44)
[2018-01-13] MEDS: CEFTRIAXONE 1 GM/50 ML (PMX) 50 ML IVPB (15:47)
[2018-01-13] MEDS: FLUCONAZOLE 200 MG TAB PO (15:47)
[2018-01-13 15:59] LABS: ADD MAN DIFF? NO
[2018-01-13 16:01] LABS: WHITE BLOOD COUNT 8.9 10^3/ul (4.8-10.8)
[2018-01-13 16:01] LABS: BASOPHIL # 0.1 10^3/ul (0.0-0.1); EOSINOPHILS # 1.1 10^3/ul (0.0-0.5); EOSINOPHILS % 12.1 % (0.0-7.0); HEMATOCRIT 40.3 % (42.0-52.0); LYMPHOCYTES # 2.7 10^3/ul (0.8-2.9); MEAN CORPUSCULAR HEMOGLOBIN 25.7 pg (29.0-33.0); MEAN CORPUSCULAR HGB CONC 32.3 g/dl (32.0-37.0); MEAN CORPUSCULAR VOLUME 79.8 fl (82.0-101.0); MEAN PLATELET VOLUME 10.7 fl (7.4-10.4); MONOCYTE # 0.8 10^3/ul (0.3-0.9); MONOCYTES % 9.3 % (0.0-11.0); NEUTROPHIL # 4.2 10^3/ul (1.6-7.5); NEUTROPHILS % 47.3 % (39.0-77.0); PLATELET COUNT 242 10^3/UL (140-415); RED BLOOD COUNT 5.05 10^6/ul (4.70-6.10); RED CELL DISTRIBUTION WIDTH 15.1 % (11.5-14.5)
[2018-01-13 16:15] LABS: ANION GAP 13 (8-16); BLOOD UREA NITROGEN 49 mg/dl (7-20); CALCIUM 9.1 mg/dl (8.4-10.2); CARBON DIOXIDE 30 mmol/L (21-31); CHLORIDE 105 mmol/L (97-110); CREATININE 1.43 mg/dl (0.61-1.24); GLUCOSE 109 mg/dl (70-220); POTASSIUM 3.9 mmol/L (3.5-5.1); SODIUM 144 mmol/L (135-144)
[2018-01-13] MEDS: INSULIN GLARGINE [LANtus] 3 ML PEN SC (23:46)
[2018-01-14] MEDS: DEXTROSE 5%-0.45% NACL 1,000 ML IV (00:44)
[2018-01-14] MEDS: ACCU-CHEK XX ×6 (02:32→23:00)
[2018-01-14] MEDS: HYDROmorphONE 0.5 MG/0.5 ML SYG IV ×3 (03:39→21:12)
[2018-01-14] MEDS: FUROSEMIDE 20 MG TAB PO ×2 (06:29→18:00)
[2018-01-14] MEDS ORDERED: GELATIN SIZE 100 SPONGE (06:41)
[2018-01-14] MEDS ORDERED: THROMBIN 5000 UNIT VIAL (06:42)
[2018-01-14] MEDS ORDERED: EPINEPHrine 4 MG in DEXTROSE 5% 246 ML IV (07:00)
[2018-01-14] MEDS ORDERED: INSULIN HUMAN REGULAR 100 UNIT in SOD CHLORIDE 0.9% 99 ML IV (07:00)
[2018-01-14] MEDS ORDERED: PHENYLephrine 20MG IN 250 ML 250 ML IV (07:00)
[2018-01-14] MEDS ORDERED: PROPOFOL 1000 MG INJ (07:00)
[2018-01-14 07:58] LABS: ADD MAN DIFF? NO
[2018-01-14 08:05] LABS: WHITE BLOOD COUNT 7.3 10^3/ul (4.8-10.8)
[2018-01-14 08:05] LABS: BASOPHIL # 0.1 10^3/ul (0.0-0.1); BASOPHILS % 0.8 % (0.0-2.0); EOSINOPHILS # 0.7 10^3/ul (0.0-0.5); HEMATOCRIT 41.4 % (42.0-52.0); HEMOGLOBIN 13.2 g/dl (14.0-18.0); LYMPHOCYTES # 2.6 10^3/ul (0.8-2.9); LYMPHOCYTES % 36.2 % (15.0-51.0); MEAN CORPUSCULAR HGB CONC 31.9 g/dl (32.0-37.0); MEAN CORPUSCULAR VOLUME 81.5 fl (82.0-101.0); MEAN PLATELET VOLUME 10.7 fl (7.4-10.4); MONOCYTE # 0.6 10^3/ul (0.3-0.9); MONOCYTES % 7.8 % (0.0-11.0); NEUTROPHIL # 3.3 10^3/ul (1.6-7.5); NEUTROPHILS % 44.9 % (39.0-77.0); PLATELET COUNT 198 10^3/UL (140-415); RED BLOOD COUNT 5.08 10^6/ul (4.70-6.10); RED CELL DISTRIBUTION WIDTH 14.8 % (11.5-14.5)
[2018-01-14] MEDS ORDERED: KETAMINE (50 MG/ML) 10 ML VIAL (08:21)
[2018-01-14] MEDS ORDERED: MIDAZOLAM 5 ML (08:22)
[2018-01-14] MEDS ORDERED: HEPARIN 1000 UNITS/ML 10 ML INJ ×3 (08:24→11:02)
[2018-01-14] MEDS ORDERED: ETOMIDATE 20 MG INJ (08:25)
[2018-01-14 08:28] LABS: ANION GAP 14 (8-16); BLOOD UREA NITROGEN 46 mg/dl (7-20); CALCIUM 9.1 mg/dl (8.4-10.2); CARBON DIOXIDE 29 mmol/L (21-31); CHLORIDE 107 mmol/L (97-110); GLUCOSE 155 mg/dl (70-220); POTASSIUM 4.8 mmol/L (3.5-5.1); SODIUM 145 mmol/L (135-144)
[2018-01-14] MEDS ORDERED: AMINOCAPROIC ACID 5 GM INJ (08:28)
[2018-01-14] MEDS ORDERED: POTASSIUM CHLORIDE 40 MEQ INJ (08:28)
[2018-01-14] MEDS ORDERED: ALBUMIN HUMAN 25% 200 ML ×2 (08:29→13:24)
[2018-01-14] MEDS ORDERED: MANNITOL 20% 250 ML IV (08:29)
[2018-01-14] MEDS ORDERED: CA CHLORIDE 10% 10 ML SYRINGE ×3 (08:29→15:29)
[2018-01-14] MEDS ORDERED: LIDOCAINE 100 MG SYRINGE (08:29)
[2018-01-14] MEDS ORDERED: MAGNESIUM SULFATE (MG) 50% 10 ML INJ (08:29)
[2018-01-14] MEDS ORDERED: PHENYLephrine 10 MG INJ (08:30)
[2018-01-14] MEDS ORDERED: NA BICARBONATE 8.4% 50 ML SYG (08:30)
[2018-01-14] MEDS: ATENOLOL 50 MG TAB PO ×2 (09:00→21:00)
[2018-01-14] MEDS: FLUCONAZOLE 200 MG TAB PO (09:00)
[2018-01-14] MEDS: FERROUS SULFATE (EC) 325 MG TAB PO (09:00)
[2018-01-14] MEDS: DILTIAZEM (CD) 180 MG CAP PO (09:00)
[2018-01-14] MEDS: ENOXAPARIN 80 MG/0.8 ML SYG SC (09:00)
[2018-01-14] MEDS: PAPAVERINE 60 MG INJ (10:20)
[2018-01-14] MEDS: HEPARIN 1000 UNITS/ML 10 ML INJ (10:20)
[2018-01-14] MEDS ORDERED: MILRINONE LACTATE 100 ML (10:24)
[2018-01-14] MEDS ORDERED: NORepinephrine 8MG/250 ML (PMX 250 ML IV (10:30)
[2018-01-14] MEDS: MILRINONE LACTATE 2 MG in SOD CHLORIDE 0.9% 50 ML IV (10:30)
[2018-01-14] MEDS ORDERED: PROTAMINE 250 MG INJ (13:15)
[2018-01-14 13:20] LABS: TYPE AND SCREEN 1
[2018-01-14] MEDS ORDERED: LIDOCAINE 2% (SDV) 5 ML INJ (13:23)
[2018-01-14] MEDS ORDERED: ALBUMIN HUMAN 5% 250 ML (13:24)
[2018-01-14] MEDS ORDERED: NITROGLYCERIN 50 MG/D5W (PMX) 250 ML (13:24)
[2018-01-14] MEDS ORDERED: ROCURONIUM 50 MG INJ (13:24)
[2018-01-14] MEDS ORDERED: VASOPRESSIN 20 UNITS INJ (13:25)
[2018-01-14 14:34] LABS: IMMEDIATE SPIN CROSSMATCH 1 6
[2018-01-14] MEDS ORDERED: morphine 10 MG INJ ×2 (14:55→16:02)
[2018-01-14] MEDS ORDERED: FUROSEMIDE 20 MG INJ (14:59)
[2018-01-14] MEDS: CEFTRIAXONE 1 GM/50 ML (PMX) 50 ML IVPB (15:00)
[2018-01-14] MEDS ORDERED: VANCOMYCIN 1 GM INJ (15:12)
[2018-01-14] MEDS: VANCOMYCIN 1 GM INJ (15:16)
[2018-01-14] MEDS ORDERED: DIPHENHYDRAMINE 50 MG INJ (15:45)
[2018-01-14 15:46] LABS: IMMEDIATE SPIN CROSSMATCH 1
[2018-01-14] MEDS: ALBUMIN HUMAN 5% 250 ML IV ×3 (16:49→23:53)
[2018-01-14] MEDS ORDERED: POTASSIUM CHLORIDE 50 ML IVPB (17:00)
[2018-01-14] MEDS ORDERED: ACETAMINOPHEN 325 MG TAB PO (17:00)
[2018-01-14] MEDS ORDERED: MAGNESIUM SULFATE 1 GM/D5W 100 ML IVPB (17:00)
[2018-01-14] MEDS ORDERED: ONDANSETRON 4 MG INJ IV (17:00)
[2018-01-14] MEDS ORDERED: ACETAMINOPHEN 650MG/20.3ML CUP NGT (17:00)
[2018-01-14] MEDS ORDERED: OXYCODONE/ACETAMINOPHEN (5/325) TAB PO (17:00)
[2018-01-14 17:17] LABS: ADD MAN DIFF? NO
[2018-01-14 17:21] LABS: AADO2 Mixed Venous 622.1 mmHg; MODE VENT - AC; MetHgb Mixed Venous 0.4 %; Mixed Venous Base Excess 4.2 mmol/L; Mixed Venous COHb 0.9 %; Mixed Venous Fraction OxyHgb 75.3 %; Mixed Venous Oxygen Sat 76.3 mmHG (65.0-75.0); Mixed Venous Total Hemglobin 12.5 g/dl; Sample Type BLMV; Site OTHER
[2018-01-14 17:22] LABS: WHITE BLOOD COUNT 4.8 10^3/ul (4.8-10.8)
[2018-01-14 17:22] LABS: BASOPHILS % 0.2 % (0.0-2.0); EOSINOPHILS # 0.1 10^3/ul (0.0-0.5); EOSINOPHILS % 2.1 % (0.0-7.0); HEMATOCRIT 34.7 % (42.0-52.0); HEMOGLOBIN 11.6 g/dl (14.0-18.0); LYMPHOCYTES # 0.8 10^3/ul (0.8-2.9); LYMPHOCYTES % 16.3 % (15.0-51.0); MEAN CORPUSCULAR HEMOGLOBIN 27.1 pg (29.0-33.0); MEAN CORPUSCULAR HGB CONC 33.4 g/dl (32.0-37.0); MEAN CORPUSCULAR VOLUME 81.1 fl (82.0-101.0); MEAN PLATELET VOLUME 9.9 fl (7.4-10.4); MONOCYTE # 0.5 10^3/ul (0.3-0.9); MONOCYTES % 10.3 % (0.0-11.0); NEUTROPHIL # 3.4 10^3/ul (1.6-7.5); NEUTROPHILS % 70.5 % (39.0-77.0); PLATELET COUNT 126 10^3/UL (140-415); RED BLOOD COUNT 4.28 10^6/ul (4.70-6.10)
[2018-01-14 17:29] LABS: AADO2 Arterial 274.9 mmHg (7.0-24.0); Arterial Base Excess 4.5 mmol/L (-3.0-3); Arterial COHb 0.4 % (0.0-3.0); Arterial Fraction of Oxyhgb 98.2 % (93.0-99.0); Arterial HCO3 29.6 mmol/L (22.0-26.0); Arterial MetHb 0.4 % (0.0-1.5); Arterial Total Hemglobin 12.6 g/dl (12.0-18.0); MODE VENT - AC; Site A-Line
[2018-01-14] MEDS ORDERED: DEXTROSE 50% 50 ML SYRINGE IV (17:30)
[2018-01-14 17:33] LABS: ANION GAP 17 (8-16); BLOOD UREA NITROGEN 37 mg/dl (7-20); CALCIUM 12.7 mg/dl (8.4-10.2); CARBON DIOXIDE 27 mmol/L (21-31); CHLORIDE 113 mmol/L (97-110); CREATININE 1.04 mg/dl (0.61-1.24); GLUCOSE 63 mg/dl (70-220); MAGNESIUM 2.6 mg/dl (1.7-2.5); POTASSIUM 3.4 mmol/L (3.5-5.1); SODIUM 154 mmol/L (135-144)
[2018-01-14 17:35] LABS: INR 1.45; PARTIAL THROMBOPLASTIN TIME 32.6 Sec (25.0-35.0); PROTIME 17.9 Sec (11.9-14.9); PT RATIO 1.4
[2018-01-14] MEDS: DEXTROSE 50% 50 ML SYRINGE IV (17:51)
[2018-01-14] MEDS: ALBUMIN HUMAN 25% 100 ML IV (17:55)
[2018-01-14] MEDS: POTASSIUM CHLORIDE 40 MEQ, CALCIUM CHLORIDE 10% 1 GM in DEXTROSE 5%-0.225% NACL 1,000 ML IV (19:28)
[2018-01-14] MEDS: PROPOFOL 100 ML IV ×2 (19:33→21:21)
[2018-01-14] MEDS: POTASSIUM CHLORIDE 30 MEQ in SOD CHLORIDE 0.9% 150 ML IV (19:34)
[2018-01-14] MEDS: NITROGLYCERIN 50 MG/D5W (PMX) 250 ML IV (19:56)
[2018-01-14] MEDS: FAMOTIDINE 20 MG INJ IV (20:10)
[2018-01-14] MEDS ORDERED: MILRINONE LACTATE 100 ML IV (20:30)
[2018-01-14] MEDS: INSULIN HUMAN REGULAR 100 UNIT in SOD CHLORIDE 0.9% 99 ML IV (21:24)
[2018-01-14] MEDS: MILRINONE LACTATE 100 ML IV (23:04)
[2018-01-15 00:16] LABS: ADD MAN DIFF? NO
[2018-01-15 00:19] LABS: ABNORMAL IP MESSAGE 1; BASOPHILS % 0.4 % (0.0-2.0); EOSINOPHILS # 0.2 10^3/ul (0.0-0.5); EOSINOPHILS % 2.9 % (0.0-7.0); HEMOGLOBIN 11.1 g/dl (14.0-18.0); LYMPHOCYTES # 0.5 10^3/ul (0.8-2.9); LYMPHOCYTES % 10.4 % (15.0-51.0); MEAN CORPUSCULAR HEMOGLOBIN 27.3 pg (29.0-33.0); MEAN CORPUSCULAR HGB CONC 33.6 g/dl (32.0-37.0); MEAN CORPUSCULAR VOLUME 81.1 fl (82.0-101.0); MEAN PLATELET VOLUME 10.2 fl (7.4-10.4); MONOCYTE # 0.6 10^3/ul (0.3-0.9); MONOCYTES % 12.4 % (0.0-11.0); NEUTROPHIL # 3.8 10^3/ul (1.6-7.5); NEUTROPHILS % 73.5 % (39.0-77.0); PLATELET COUNT 102 10^3/UL (140-415); POSITIVE DIFF @See below; RED BLOOD COUNT 4.07 10^6/ul (4.70-6.10); RED CELL DISTRIBUTION WIDTH 15.4 % (11.5-14.5)
[2018-01-15 00:19] LABS: WHITE BLOOD COUNT 5.1 10^3/ul (4.8-10.8)
[2018-01-15] MEDS: ALBUMIN HUMAN 5% 250 ML IV (00:30)
[2018-01-15 00:47] LABS: ANION GAP 18 (8-16); BLOOD UREA NITROGEN 39 mg/dl (7-20); CARBON DIOXIDE 27 mmol/L (21-31); CHLORIDE 112 mmol/L (97-110); CREATININE 1.26 mg/dl (0.61-1.24); GLUCOSE 187 mg/dl (70-220); MAGNESIUM 2.3 mg/dl (1.7-2.5); POTASSIUM 4.5 mmol/L (3.5-5.1); SODIUM 152 mmol/L (135-144)
[2018-01-15] MEDS: ACCU-CHEK XX ×24 (01:00→23:07)
[2018-01-15 04:48] LABS: ADD MAN DIFF? NO
[2018-01-15 04:50] LABS: WHITE BLOOD COUNT 6.3 10^3/ul (4.8-10.8)
[2018-01-15 04:50] LABS: BASOPHILS % 0.5 % (0.0-2.0); EOSINOPHILS # 0.3 10^3/ul (0.0-0.5); EOSINOPHILS % 4.6 % (0.0-7.0); HEMATOCRIT 34.1 % (42.0-52.0); HEMOGLOBIN 11.4 g/dl (14.0-18.0); LYMPHOCYTES # 0.9 10^3/ul (0.8-2.9); LYMPHOCYTES % 13.7 % (15.0-51.0); MEAN CORPUSCULAR HEMOGLOBIN 27.3 pg (29.0-33.0); MEAN CORPUSCULAR HGB CONC 33.4 g/dl (32.0-37.0); MEAN CORPUSCULAR VOLUME 81.6 fl (82.0-101.0); MEAN PLATELET VOLUME 11.2 fl (7.4-10.4); MONOCYTE # 0.8 10^3/ul (0.3-0.9); MONOCYTES % 12.2 % (0.0-11.0); NEUTROPHIL # 4.3 10^3/ul (1.6-7.5); NEUTROPHILS % 68.7 % (39.0-77.0); PLATELET COUNT 113 10^3/UL (140-415); RED BLOOD COUNT 4.18 10^6/ul (4.70-6.10); RED CELL DISTRIBUTION WIDTH 15.7 % (11.5-14.5)
[2018-01-15 05:07] LABS: AADO2 Arterial 145.4 mmHg (7.0-24.0); Arterial Base Excess 0.4 mmol/L (-3.0-3); Arterial Blood Gas Oxygen Sat 97.1 mmHG (95.0-98.0); Arterial COHb 0.5 % (0.0-3.0); Arterial Fraction of Oxyhgb 96.4 % (93.0-99.0); Arterial MetHb 0.2 % (0.0-1.5); Arterial Total Hemglobin 12.7 g/dl (12.0-18.0); Arterial pCO2 40.2 mmhg (35-45); MODE VENT - AC; Site A-Line
[2018-01-15 05:10] LABS: ANION GAP 19 (8-16); BLOOD UREA NITROGEN 42 mg/dl (7-20); CALCIUM 12.1 mg/dl (8.4-10.2); CARBON DIOXIDE 27 mmol/L (21-31); CHLORIDE 112 mmol/L (97-110); GLUCOSE 150 mg/dl (70-220); INR 1.47; MAGNESIUM 2.3 mg/dl (1.7-2.5); PARTIAL THROMBOPLASTIN TIME 39.8 Sec (25.0-35.0); POTASSIUM 4.9 mmol/L (3.5-5.1); PROTIME 18.1 Sec (11.9-14.9); PT RATIO 1.4; SODIUM 153 mmol/L (135-144)
[2018-01-15] MEDS: FUROSEMIDE 20 MG TAB PO ×2 (05:37→18:00)
[2018-01-15] MEDS: MILRINONE LACTATE 100 ML IV ×2 (07:09→16:06)
[2018-01-15] MEDS: FAMOTIDINE 20 MG INJ IV ×2 (08:41→19:43)
[2018-01-15] MEDS: HYDROmorphONE 0.5 MG/0.5 ML SYG IV ×4 (08:46→22:24)
[2018-01-15] MEDS: ATENOLOL 50 MG TAB PO (09:00)
[2018-01-15] MEDS: DILTIAZEM (CD) 180 MG CAP PO (09:00)
[2018-01-15] MEDS: FERROUS SULFATE (EC) 325 MG TAB PO (09:00)
[2018-01-15] MEDS: ENOXAPARIN 80 MG/0.8 ML SYG SC (09:00)
[2018-01-15] MEDS: FLUCONAZOLE 200 MG TAB PO (09:00)
[2018-01-15] MEDS ORDERED: DOPamine-D5W 1.6 MG/ML 250 ML IV (10:30)
[2018-01-15] MEDS: DEXTROSE 5%-0.45% NACL 1,000 ML IV (12:26)
[2018-01-15 14:50] LABS: AADO2 Arterial 72.6 mmHg (7.0-24.0); Arterial Base Excess -0.1 mmol/L (-3.0-3); Arterial Blood Gas Oxygen Sat 96.9 mmHG (95.0-98.0); Arterial COHb 0.9 % (0.0-3.0); Arterial Fraction of Oxyhgb 95.7 % (93.0-99.0); Arterial HCO3 25.2 mmol/L (22.0-26.0); Arterial MetHb 0.3 % (0.0-1.5); Arterial Total Hemglobin 12.5 g/dl (12.0-18.0); Arterial pCO2 43.5 mmhg (35-45); Blood Gas PS 10; MODE VENT - CPAP; Site A-Line
[2018-01-15] MEDS: CEFTRIAXONE 1 GM/50 ML (PMX) 50 ML IVPB (15:44)
[2018-01-15] MEDS: INSULIN HUMAN REGULAR 100 UNIT in SOD CHLORIDE 0.9% 99 ML IV (15:52)
[2018-01-15 17:24] LABS: HEMATOCRIT 35.2 % (42.0-52.0)
[2018-01-15] MEDS: PROPOFOL 100 ML IV (19:30)
[2018-01-15] MEDS: ALBUTEROL/IPRATROPIUM (NEB) 3 ML AMP HHN (19:43)
[2018-01-16] MEDS: ACCU-CHEK XX ×25 (00:10→23:49)
[2018-01-16] MEDS: DEXTROSE 5%-0.45% NACL 1,000 ML IV ×2 (00:59→13:53)
[2018-01-16] MEDS: HYDROmorphONE 0.5 MG/0.5 ML SYG IV ×8 (01:12→23:14)
[2018-01-16] MEDS: ALBUTEROL/IPRATROPIUM (NEB) 3 ML AMP HHN ×4 (02:03→19:31)
[2018-01-16] MEDS: MILRINONE LACTATE 100 ML IV (03:48)
[2018-01-16 05:06] LABS: ADD MAN DIFF? NO
[2018-01-16 05:08] LABS: ABNORMAL IP MESSAGE 1; BASOPHILS % 0.2 % (0.0-2.0); EOSINOPHILS # 0.2 10^3/ul (0.0-0.5); EOSINOPHILS % 2.4 % (0.0-7.0); HEMATOCRIT 37.8 % (42.0-52.0); HEMOGLOBIN 12.1 g/dl (14.0-18.0); LYMPHOCYTES # 0.9 10^3/ul (0.8-2.9); MEAN CORPUSCULAR HEMOGLOBIN 26.8 pg (29.0-33.0); MEAN CORPUSCULAR VOLUME 83.6 fl (82.0-101.0); MEAN PLATELET VOLUME 11.3 fl (7.4-10.4); MONOCYTES % 11.8 % (0.0-11.0); NEUTROPHIL # 6.1 10^3/ul (1.6-7.5); NEUTROPHILS % 74.4 % (39.0-77.0); PLATELET COUNT 99 10^3/UL (140-415); POSITIVE DIFF @See below; RED BLOOD COUNT 4.52 10^6/ul (4.70-6.10); RED CELL DISTRIBUTION WIDTH 16.6 % (11.5-14.5)
[2018-01-16 05:08] LABS: WHITE BLOOD COUNT 8.2 10^3/ul (4.8-10.8)
[2018-01-16 05:33] LABS: ANION GAP 17 (8-16); BLOOD UREA NITROGEN 38 mg/dl (7-20); CALCIUM 10.6 mg/dl (8.4-10.2); CARBON DIOXIDE 24 mmol/L (21-31); CHLORIDE 113 mmol/L (97-110); CREATININE 1.19 mg/dl (0.61-1.24); GLUCOSE 171 mg/dl (70-220); POTASSIUM 4.3 mmol/L (3.5-5.1); SODIUM 150 mmol/L (135-144)
[2018-01-16] MEDS: FUROSEMIDE 20 MG TAB PO (06:00)
[2018-01-16] MEDS: PROPOFOL 100 ML IV (07:30)
[2018-01-16] MEDS: FAMOTIDINE 20 MG INJ IV ×2 (08:26→19:59)
[2018-01-16] MEDS: ENOXAPARIN 80 MG/0.8 ML SYG SC (08:28)
[2018-01-16 08:38] LABS: AADO2 Arterial 48.9 mmHg (7.0-24.0); Arterial Base Excess -1.1 mmol/L (-3.0-3); Arterial Blood Gas Oxygen Sat 97.1 mmHG (95.0-98.0); Arterial COHb 1.1 % (0.0-3.0); Arterial Fraction of Oxyhgb 95.7 % (93.0-99.0); Arterial HCO3 24.5 mmol/L (22.0-26.0); Arterial MetHb 0.3 % (0.0-1.5); Arterial Total Hemglobin 12.5 g/dl (12.0-18.0); MODE NASAL CANNULA; Site A-Line
[2018-01-16] MEDS: FLUCONAZOLE 200 MG TAB PO (09:00)
[2018-01-16] MEDS: FERROUS SULFATE (EC) 325 MG TAB PO (09:00)
[2018-01-16] MEDS: FUROSEMIDE 20 MG INJ IV ×2 (10:11→21:17)
[2018-01-16] MEDS: ACETAMINOPHEN 650 MG SUPP PR (10:20)
[2018-01-16] MEDS: FLUCONAZOLE 200 MG/NS (PMX) 100 ML IVPB (11:19)
[2018-01-16 14:25] LABS: LACTIC ACID 1.8 mmol/L (0.5-2.0)
[2018-01-16] MEDS: CEFTRIAXONE 1 GM/50 ML (PMX) 50 ML IVPB (14:53)
[2018-01-16] MEDS: DEXTROSE 5% 1,000 ML IV (14:53)
[2018-01-16] MEDS: DULOXETINE 30 MG CAP DR PO (17:22)
[2018-01-16] MEDS ORDERED: GLUCOSE GEL 15 GRAM TUBE PO ×2 (18:30)
[2018-01-16] MEDS ORDERED: GLUCAGON 1 MG INJ IM (18:30)
[2018-01-16] MEDS ORDERED: GLUCOSE GEL 15 GRAM TUBE BUCCAL (18:30)
[2018-01-16] MEDS ORDERED: DEXTROSE 50% 50 ML SYRINGE IV ×2 (18:30)
[2018-01-16] MEDS: INSULIN GLARGINE [LANtus] 3 ML PEN SC (20:00)
[2018-01-16] MEDS: ALPRAZOLAM 0.25 MG TAB PO (21:22)
[2018-01-16] MEDS: NACL 3% FOR INHALATION 15 ML NEBU NEB (23:00)
[2018-01-16] MEDS ORDERED: FLUCONAZOLE 200 MG/NS (PMX) 100 ML IVPB (23:00)
[2018-01-16] MEDS: CEFEPIME 1GM/50 ML (PMX) 50 ML IVPB (23:41)
[2018-01-16] MEDS: SOD CHLORIDE 0.45% 1,000 ML IV (23:43)
[2018-01-17] MEDS: ACCU-CHEK XX ×22 (01:00→21:29)
[2018-01-17] MEDS: FLUCONAZOLE 200 MG/NS (PMX) 100 ML IVPB (01:29)
[2018-01-17] MEDS: ALBUTEROL/IPRATROPIUM (NEB) 3 ML AMP HHN ×4 (01:36→19:44)
[2018-01-17] MEDS: HYDROmorphONE 0.5 MG/0.5 ML SYG IV ×8 (02:22→21:12)
[2018-01-17 05:07] LABS: ADD MAN DIFF? NO
[2018-01-17 05:10] LABS: ABNORMAL IP MESSAGE 1; BASOPHILS % 0.3 % (0.0-2.0); EOSINOPHILS # 0.2 10^3/ul (0.0-0.5); HEMATOCRIT 36.9 % (42.0-52.0); HEMOGLOBIN 11.7 g/dl (14.0-18.0); LYMPHOCYTES # 1.1 10^3/ul (0.8-2.9); LYMPHOCYTES % 17.8 % (15.0-51.0); MEAN CORPUSCULAR HEMOGLOBIN 27.1 pg (29.0-33.0); MEAN CORPUSCULAR HGB CONC 31.7 g/dl (32.0-37.0); MEAN CORPUSCULAR VOLUME 85.6 fl (82.0-101.0); MEAN PLATELET VOLUME 12.1 fl (7.4-10.4); MONOCYTE # 0.6 10^3/ul (0.3-0.9); MONOCYTES % 9.9 % (0.0-11.0); NEUTROPHIL # 4.2 10^3/ul (1.6-7.5); NEUTROPHILS % 68.5 % (39.0-77.0); PLATELET COUNT 73 10^3/UL (140-415); POSITIVE DIFF @See below; RED BLOOD COUNT 4.31 10^6/ul (4.70-6.10); RED CELL DISTRIBUTION WIDTH 16.5 % (11.5-14.5)
[2018-01-17 05:10] LABS: WHITE BLOOD COUNT 6.1 10^3/ul (4.8-10.8)
[2018-01-17 05:35] LABS: ALANINE AMINOTRANSFERASE 29 IU/L (13-69); ALBUMIN 3.2 g/dl (3.3-4.9); ALBUMIN/GLOBULIN RATIO 1.06; ALKALINE PHOSPHATASE 84 IU/L (42-121); ANION GAP 15 (8-16); ANION GAP 17 (8-16); ASPARTATE AMINO TRANSFERASE 28 IU/L (15-46); BILIRUBIN,INDIRECT 1.7 mg/dl (0-1.1); BILIRUBIN,TOTAL 1.9 mg/dl (0.2-1.3); BLOOD UREA NITROGEN 32 mg/dl (7-20); CALCIUM 9.5 mg/dl (8.4-10.2); CALCIUM 9.6 mg/dl (8.4-10.2); CARBON DIOXIDE 26 mmol/L (21-31); CARBON DIOXIDE 27 mmol/L (21-31); CHLORIDE 110 mmol/L (97-110); CHLORIDE 111 mmol/L (97-110); CREATININE 0.97 mg/dl (0.61-1.24); CREATININE 1.01 mg/dl (0.61-1.24); GLUCOSE 129 mg/dl (70-220); GLUCOSE 132 mg/dl (70-220); MAGNESIUM 1.7 mg/dl (1.7-2.5); PHOSPHORUS 3.4 mg/dl (2.5-4.9); POTASSIUM 3.8 mmol/L (3.5-5.1); SODIUM 149 mmol/L (135-144); TOTAL PROTEIN 6.2 g/dl (6.1-8.1)
[2018-01-17] MEDS: CEFEPIME 1GM/50 ML (PMX) 50 ML IVPB ×3 (05:51→21:21)
[2018-01-17] MEDS: INSULIN ASPART [NOVOLOG] 3 ML PEN SC ×8 (06:00→21:00)
[2018-01-17] MEDS: EMPAGLIFLOZIN 10 MG TABLET PO (09:03)
[2018-01-17] MEDS: FAMOTIDINE 20 MG INJ IV ×2 (09:03→19:20)
[2018-01-17] MEDS: DULOXETINE 30 MG CAP DR PO (09:04)
[2018-01-17] MEDS: MAGNESIUM SULFATE 2 GM/50 ML 50 ML IVPB (09:04)
[2018-01-17] MEDS: FUROSEMIDE 20 MG INJ IV ×2 (09:04→21:21)
[2018-01-17] MEDS: LINAGLIPTIN 5 MG TABLET PO (09:05)
[2018-01-17] MEDS: FERROUS SULFATE (EC) 325 MG TAB PO (09:05)
[2018-01-17] MEDS: ENOXAPARIN 80 MG/0.8 ML SYG SC (09:06)
[2018-01-17] MEDS: OXYCODONE/ACETAMINOPHEN (5/325) TAB PO ×5 (09:39→13:52)
[2018-01-17] MEDS: SOD CHLORIDE 0.45% 1,000 ML IV (13:54)
[2018-01-17] MEDS: ALPRAZOLAM 0.25 MG TAB PO (19:20)
[2018-01-17] MEDS: INSULIN GLARGINE [LANtus] 3 ML PEN SC (21:24)
[2018-01-18] MEDS: HYDROmorphONE 0.5 MG/0.5 ML SYG IV ×5 (00:46→18:16)
[2018-01-18] MEDS: ALBUTEROL/IPRATROPIUM (NEB) 3 ML AMP HHN ×4 (01:23→20:42)
[2018-01-18] MEDS: SOD CHLORIDE 0.45% 1,000 ML IV ×2 (02:24→16:00)
[2018-01-18] MEDS: CEFEPIME 1GM/50 ML (PMX) 50 ML IVPB ×3 (05:23→22:04)
[2018-01-18] MEDS: INSULIN ASPART [NOVOLOG] 3 ML PEN SC ×6 (08:00→21:00)
[2018-01-18] MEDS: DULOXETINE 30 MG CAP DR PO (08:36)
[2018-01-18] MEDS: LINAGLIPTIN 5 MG TABLET PO (08:36)
[2018-01-18] MEDS: EMPAGLIFLOZIN 10 MG TABLET PO (08:36)
[2018-01-18] MEDS: FERROUS SULFATE (EC) 325 MG TAB PO (08:36)
[2018-01-18] MEDS: FUROSEMIDE 20 MG INJ IV ×2 (08:37→21:58)
[2018-01-18] MEDS: FAMOTIDINE 20 MG INJ IV ×2 (08:37→21:58)
[2018-01-18] MEDS: ENOXAPARIN 80 MG/0.8 ML SYG SC (08:40)
[2018-01-18 09:33] LABS: ADD MAN DIFF? NO
[2018-01-18 09:37] LABS: ABNORMAL IP MESSAGE 1; BASOPHILS % 0.4 % (0.0-2.0); EOSINOPHILS # 0.3 10^3/ul (0.0-0.5); EOSINOPHILS % 5.8 % (0.0-7.0); HEMATOCRIT 30.9 % (42.0-52.0); HEMOGLOBIN 9.8 g/dl (14.0-18.0); LYMPHOCYTES # 0.8 10^3/ul (0.8-2.9); LYMPHOCYTES % 15.6 % (15.0-51.0); MEAN CORPUSCULAR HEMOGLOBIN 27.4 pg (29.0-33.0); MEAN CORPUSCULAR HGB CONC 31.7 g/dl (32.0-37.0); MEAN CORPUSCULAR VOLUME 86.3 fl (82.0-101.0); MEAN PLATELET VOLUME 11.2 fl (7.4-10.4); MONOCYTE # 0.5 10^3/ul (0.3-0.9); MONOCYTES % 10.2 % (0.0-11.0); NEUTROPHIL # 3.3 10^3/ul (1.6-7.5); NEUTROPHILS % 67.6 % (39.0-77.0); PLATELET COUNT 60 10^3/UL (140-415); POSITIVE DIFF @See below; RED BLOOD COUNT 3.58 10^6/ul (4.70-6.10); RED CELL DISTRIBUTION WIDTH 16.2 % (11.5-14.5)
[2018-01-18 09:37] LABS: WHITE BLOOD COUNT 4.8 10^3/ul (4.8-10.8)
[2018-01-18 10:05] LABS: ALANINE AMINOTRANSFERASE 32 IU/L (13-69); ALBUMIN 2.4 g/dl (3.3-4.9); ALBUMIN/GLOBULIN RATIO 0.92; ALKALINE PHOSPHATASE 76 IU/L (42-121); ANION GAP 12 (8-16); ASPARTATE AMINO TRANSFERASE 23 IU/L (15-46); BILIRUBIN,INDIRECT 1.3 mg/dl (0-1.1); BILIRUBIN,TOTAL 1.4 mg/dl (0.2-1.3); BLOOD UREA NITROGEN 26 mg/dl (7-20); CALCIUM 6.9 mg/dl (8.4-10.2); CARBON DIOXIDE 22 mmol/L (21-31); CHLORIDE 115 mmol/L (97-110); GLUCOSE 62 mg/dl (70-220); MAGNESIUM 1.6 mg/dl (1.7-2.5); PHOSPHORUS 2.3 mg/dl (2.5-4.9); SODIUM 146 mmol/L (135-144)
[2018-01-18 10:21] LABS: POTASSIUM 2.6 mmol/L (3.5-5.1)
[2018-01-18] MEDS: FLUCONAZOLE 200 MG/NS (PMX) 100 ML IVPB (12:20)
[2018-01-18] MEDS: POTASSIUM CHLORIDE 100 ML IVPB (13:57)
[2018-01-18] MEDS: MAGNESIUM SULFATE 2 GM/50 ML 50 ML IVPB (15:23)
[2018-01-18] MEDS ORDERED: INSULIN GLARGINE [LANtus] 3 ML PEN SC (20:00)
[2018-01-18] MEDS: INSULIN GLARGINE [LANtus] 3 ML PEN SC (22:03)
[2018-01-19] MEDS: HYDROmorphONE 0.5 MG/0.5 ML SYG IV ×4 (01:10→18:14)
[2018-01-19] MEDS: ALBUTEROL/IPRATROPIUM (NEB) 3 ML AMP HHN ×4 (01:56→19:56)
[2018-01-19] MEDS: CEFEPIME 1GM/50 ML (PMX) 50 ML IVPB ×3 (05:08→20:57)
[2018-01-19] MEDS: INSULIN ASPART [NOVOLOG] 3 ML PEN SC ×5 (08:00→20:57)
[2018-01-19] MEDS: DULOXETINE 30 MG CAP DR PO (08:55)
[2018-01-19] MEDS: LINAGLIPTIN 5 MG TABLET PO (08:55)
[2018-01-19] MEDS: EMPAGLIFLOZIN 10 MG TABLET PO (08:55)
[2018-01-19] MEDS: FERROUS SULFATE (EC) 325 MG TAB PO (08:55)
[2018-01-19] MEDS: FAMOTIDINE 20 MG INJ IV ×2 (08:56→20:30)
[2018-01-19] MEDS: ATENOLOL 25 MG TAB PO (08:56)
[2018-01-19] MEDS: FUROSEMIDE 20 MG INJ IV ×2 (08:56→20:48)
[2018-01-19] MEDS: ENOXAPARIN 80 MG/0.8 ML SYG SC (08:59)
[2018-01-19 10:16] LABS: ALANINE AMINOTRANSFERASE 30 IU/L (13-69); ALBUMIN 3.4 g/dl (3.3-4.9); ALBUMIN/GLOBULIN RATIO 0.89; ALKALINE PHOSPHATASE 135 IU/L (42-121); ANION GAP 20 (8-16); ASPARTATE AMINO TRANSFERASE 45 IU/L (15-46); BILIRUBIN,INDIRECT 1.4 mg/dl (0-1.1); BILIRUBIN,TOTAL 1.4 mg/dl (0.2-1.3); BLOOD UREA NITROGEN 34 mg/dl (7-20); CALCIUM 8.6 mg/dl (8.4-10.2); CARBON DIOXIDE 18 mmol/L (21-31); CHLORIDE 111 mmol/L (97-110); CREATININE 1.02 mg/dl (0.61-1.24); GLUCOSE 112 mg/dl (70-220); MAGNESIUM 2.2 mg/dl (1.7-2.5); POTASSIUM 4.1 mmol/L (3.5-5.1); SODIUM 145 mmol/L (135-144); TOTAL PROTEIN 7.2 g/dl (6.1-8.1)
[2018-01-19] MEDS: FLUCONAZOLE 200 MG/NS (PMX) 100 ML IVPB (11:18)
[2018-01-19] MEDS: LIDOCAINE 1% (MPF) 5 ML VIAL SC (13:30)
[2018-01-19] MEDS: INSULIN GLARGINE [LANtus] 3 ML PEN SC (20:57)
[2018-01-20] MEDS: LIDOCAINE 5% PATCH TD ×4 (00:30→09:00)
[2018-01-20 01:20] LABS: ANION GAP 16 (8-16); BLOOD UREA NITROGEN 37 mg/dl (7-20); CALCIUM 8.6 mg/dl (8.4-10.2); CARBON DIOXIDE 24 mmol/L (21-31); CHLORIDE 107 mmol/L (97-110); CREATININE 1.21 mg/dl (0.61-1.24); GLUCOSE 147 mg/dl (70-220); MAGNESIUM 2.3 mg/dl (1.7-2.5); POTASSIUM 3.4 mmol/L (3.5-5.1); SODIUM 144 mmol/L (135-144)
[2018-01-20] MEDS: ALBUTEROL/IPRATROPIUM (NEB) 3 ML AMP HHN ×4 (01:23→19:17)
[2018-01-20] MEDS: POTASSIUM CHLORIDE (SR) 20 MEQ TAB PO (04:39)
[2018-01-20] MEDS: CEFEPIME 1GM/50 ML (PMX) 50 ML IVPB ×3 (04:39→21:19)
[2018-01-20] MEDS: EMPAGLIFLOZIN 10 MG TABLET PO (07:53)
[2018-01-20] MEDS: FAMOTIDINE 20 MG INJ IV ×2 (07:53→20:56)
[2018-01-20] MEDS: INSULIN ASPART [NOVOLOG] 3 ML PEN SC ×4 (07:54→20:55)
[2018-01-20] MEDS: HYDROmorphONE 0.5 MG/0.5 ML SYG IV ×2 (08:02→14:00)
[2018-01-20] MEDS ORDERED: LIDOCAINE 5% PATCH TD (09:00)
[2018-01-20] MEDS: LINAGLIPTIN 5 MG TABLET PO (09:01)
[2018-01-20] MEDS: FERROUS SULFATE (EC) 325 MG TAB PO (09:01)
[2018-01-20] MEDS: ATENOLOL 25 MG TAB PO (09:01)
[2018-01-20] MEDS: FUROSEMIDE 20 MG INJ IV (09:01)
[2018-01-20] MEDS: ENOXAPARIN 80 MG/0.8 ML SYG SC (09:02)
[2018-01-20 09:40] LABS: AADO2 Arterial 69.5 mmHg (7.0-24.0); Allen Test ACCEPTAB; Arterial Base Excess -1.7 mmol/L (-3.0-3); Arterial Blood Gas Oxygen Sat 98.2 mmHG (95.0-98.0); Arterial COHb 0.4 % (0.0-3.0); Arterial Fraction of Oxyhgb 97.6 % (93.0-99.0); Arterial HCO3 22.9 mmol/L (22.0-26.0); Arterial MetHb 0.2 % (0.0-1.5); Arterial Total Hemglobin 13.8 g/dl (12.0-18.0); Arterial pCO2 38.4 mmhg (35-45); MODE NASAL CANNULA; Site Right Radial
[2018-01-20] MEDS: FLUCONAZOLE 200 MG/NS (PMX) 100 ML IVPB (11:27)
[2018-01-20] MEDS: metFORMIN 500 MG TAB PO (17:21)
[2018-01-20] MEDS: FAMOTIDINE 20 MG TAB PO (20:56)
[2018-01-20] MEDS: INSULIN GLARGINE [LANtus] 3 ML PEN SC (20:56)
[2018-01-21] MEDS: HYDROmorphONE 0.5 MG/0.5 ML SYG IV ×4 (00:16→21:38)
[2018-01-21] MEDS: ALBUTEROL/IPRATROPIUM (NEB) 3 ML AMP HHN ×4 (01:25→20:02)
[2018-01-21] MEDS: CEFEPIME 1GM/50 ML (PMX) 50 ML IVPB ×3 (05:30→21:24)
[2018-01-21 06:11] LABS: ADD MAN DIFF? NO
[2018-01-21 06:14] LABS: BASOPHILS % 0.7 % (0.0-2.0); EOSINOPHILS # 0.3 10^3/ul (0.0-0.5); EOSINOPHILS % 4.3 % (0.0-7.0); HEMATOCRIT 36.1 % (42.0-52.0); HEMOGLOBIN 11.4 g/dl (14.0-18.0); LYMPHOCYTES % 17.7 % (15.0-51.0); MEAN CORPUSCULAR HGB CONC 31.6 g/dl (32.0-37.0); MEAN CORPUSCULAR VOLUME 85.5 fl (82.0-101.0); MEAN PLATELET VOLUME 12.2 fl (7.4-10.4); MONOCYTE # 0.6 10^3/ul (0.3-0.9); NEUTROPHIL # 3.8 10^3/ul (1.6-7.5); NEUTROPHILS % 66.1 % (39.0-77.0); PLATELET COUNT 104 10^3/UL (140-415); RED BLOOD COUNT 4.22 10^6/ul (4.70-6.10); RED CELL DISTRIBUTION WIDTH 16.5 % (11.5-14.5)
[2018-01-21 06:14] LABS: WHITE BLOOD COUNT 5.8 10^3/ul (4.8-10.8)
[2018-01-21 06:30] LABS: ANION GAP 16 (8-16); BLOOD UREA NITROGEN 25 mg/dl (7-20); CALCIUM 8.6 mg/dl (8.4-10.2); CARBON DIOXIDE 26 mmol/L (21-31); CHLORIDE 109 mmol/L (97-110); CREATININE 0.97 mg/dl (0.61-1.24); GLUCOSE 84 mg/dl (70-220); POTASSIUM 3.5 mmol/L (3.5-5.1); SODIUM 147 mmol/L (135-144)
[2018-01-21] MEDS: INSULIN ASPART [NOVOLOG] 3 ML PEN SC ×4 (08:00→21:00)
[2018-01-21] MEDS: metFORMIN 500 MG TAB PO ×2 (08:22→17:14)
[2018-01-21] MEDS: EMPAGLIFLOZIN 10 MG TABLET PO (08:22)
[2018-01-21] MEDS: LIDOCAINE 5% PATCH TD ×2 (08:57)
[2018-01-21] MEDS: OXYCODONE/ACETAMINOPHEN (5/325) TAB PO (09:01)
[2018-01-21] MEDS: FAMOTIDINE 20 MG TAB PO ×2 (09:02→21:09)
[2018-01-21] MEDS: LINAGLIPTIN 5 MG TABLET PO (09:02)
[2018-01-21] MEDS: ATENOLOL 25 MG TAB PO (09:02)
[2018-01-21] MEDS: FERROUS SULFATE (EC) 325 MG TAB PO (09:02)
[2018-01-21] MEDS: ASPIRIN 81 MG TAB PO (09:02)
[2018-01-21] MEDS: FUROSEMIDE 20 MG INJ IV (09:02)
[2018-01-21] MEDS: FLUCONAZOLE 200 MG/NS (PMX) 100 ML IVPB (11:39)
[2018-01-21 15:45] LABS: ADD UMIC YES; UR ASCORBIC ACID NEGATIVE (NEGATIVE); UR BACTERIA FEW /HPF (NONE SEEN); UR BILIRUBIN (Dip) NEGATIVE (NEGATIVE); UR BLOOD (Dip) 1+ mg/dL (NEGATIVE); UR CLARITY CLEAR (CLEAR); UR COLOR YELLOW (YELLOW); UR GLUCOSE (Dip) 3+ mg/dL (NEGATIVE); UR KETONES (Dip) NEGATIVE (NEGATIVE); UR LEUKOCYTE ESTERASE (Dip) NEGATIVE Leu/ul (NEGATIVE); UR MUCUS FEW /HPF (NONE SEEN); UR NITRITE (Dip) NEGATIVE (NEGATIVE); UR RBC 1 /HPF (0-5); UR SPECIFIC GRAVITY (Dip) 1.014 (1.003-1.030); UR SQUAMOUS EPITHELIAL CELL FEW /HPF (FEW); UR TOTAL PROTEIN (Dip) 2+ mg/dl (NEGATIVE); UR UROBILINOGEN (Dip) NEGATIVE (NEGATIVE); UR WBC 3 /HPF (0-5)
[2018-01-21] MEDS: INSULIN GLARGINE [LANtus] 3 ML PEN SC (21:15)
[2018-01-22] MEDS: ALBUTEROL/IPRATROPIUM (NEB) 3 ML AMP HHN ×5 (01:54→21:08)
[2018-01-22] MEDS: FUROSEMIDE 40 MG INJ IV (03:06)
[2018-01-22] MEDS: CEFEPIME 1GM/50 ML (PMX) 50 ML IVPB ×2 (06:14→14:05)
[2018-01-22] MEDS: HYDROmorphONE 0.5 MG/0.5 ML SYG IV ×5 (06:15→21:20)
[2018-01-22 06:43] LABS: ADD MAN DIFF? NO
[2018-01-22 06:48] LABS: BASOPHILS % 0.6 % (0.0-2.0); EOSINOPHILS # 0.3 10^3/ul (0.0-0.5); HEMATOCRIT 39.2 % (42.0-52.0); HEMOGLOBIN 12.4 g/dl (14.0-18.0); LYMPHOCYTES # 0.8 10^3/ul (0.8-2.9); LYMPHOCYTES % 12.3 % (15.0-51.0); MEAN CORPUSCULAR HEMOGLOBIN 27.4 pg (29.0-33.0); MEAN CORPUSCULAR HGB CONC 31.6 g/dl (32.0-37.0); MEAN CORPUSCULAR VOLUME 86.5 fl (82.0-101.0); MEAN PLATELET VOLUME 11.8 fl (7.4-10.4); MONOCYTE # 0.6 10^3/ul (0.3-0.9); MONOCYTES % 8.8 % (0.0-11.0); NEUTROPHIL # 4.8 10^3/ul (1.6-7.5); NEUTROPHILS % 72.9 % (39.0-77.0); PLATELET COUNT 143 10^3/UL (140-415); RED BLOOD COUNT 4.53 10^6/ul (4.70-6.10); RED CELL DISTRIBUTION WIDTH 17.2 % (11.5-14.5)
[2018-01-22 06:48] LABS: WHITE BLOOD COUNT 6.6 10^3/ul (4.8-10.8)
[2018-01-22 07:13] LABS: ANION GAP 18 (8-16); BLOOD UREA NITROGEN 23 mg/dl (7-20); CALCIUM 8.8 mg/dl (8.4-10.2); CARBON DIOXIDE 26 mmol/L (21-31); CHLORIDE 107 mmol/L (97-110); CREATININE 0.97 mg/dl (0.61-1.24); GLUCOSE 183 mg/dl (70-220); POTASSIUM 3.7 mmol/L (3.5-5.1); SODIUM 147 mmol/L (135-144)
[2018-01-22] MEDS: INSULIN ASPART [NOVOLOG] 3 ML PEN SC ×4 (08:00→21:00)
[2018-01-22] MEDS: LIDOCAINE 5% PATCH TD ×2 (10:00→10:11)
[2018-01-22] MEDS: FAMOTIDINE 20 MG TAB PO ×2 (10:03→21:17)
[2018-01-22] MEDS: FERROUS SULFATE (EC) 325 MG TAB PO (10:03)
[2018-01-22] MEDS: LINAGLIPTIN 5 MG TABLET PO (10:04)
[2018-01-22] MEDS: metFORMIN 500 MG TAB PO ×2 (10:04→18:25)
[2018-01-22] MEDS: ASPIRIN 81 MG TAB PO (10:04)
[2018-01-22] MEDS: ATENOLOL 25 MG TAB PO (10:06)
[2018-01-22] MEDS: FUROSEMIDE 20 MG INJ IV ×2 (10:07→21:18)
[2018-01-22] MEDS: EMPAGLIFLOZIN 10 MG TABLET PO (12:24)
[2018-01-22] MEDS: FLUCONAZOLE 200 MG/NS (PMX) 100 ML IVPB (12:25)
[2018-01-22] MEDS ORDERED: VANCOMYCIN IV PER PHARMACY XX (20:30)
[2018-01-22] MEDS: INSULIN GLARGINE [LANtus] 3 ML PEN SC (21:17)
[2018-01-22] MEDS: VANCOMYCIN 1 GM 250 ML IVPB (21:33)
[2018-01-22] MEDS: VANCOMYCIN 1.5 GM in SOD CHLORIDE 0.9% 250 ML IVPB (21:54)
[2018-01-23] MEDS: ALBUTEROL/IPRATROPIUM (NEB) 3 ML AMP HHN ×4 (01:14→20:00)
[2018-01-23] MEDS: HYDROmorphONE 0.5 MG/0.5 ML SYG IV ×6 (02:42→21:29)
[2018-01-23] MEDS: INSULIN ASPART [NOVOLOG] 3 ML PEN SC ×4 (07:57→21:22)
[2018-01-23] MEDS: metFORMIN 500 MG TAB PO ×2 (07:58→17:16)
[2018-01-23] MEDS: EMPAGLIFLOZIN 10 MG TABLET PO (07:58)
[2018-01-23 08:24] LABS: ADD MAN DIFF? NO
[2018-01-23 08:44] LABS: BASOPHILS % 0.6 % (0.0-2.0); EOSINOPHILS # 0.3 10^3/ul (0.0-0.5); EOSINOPHILS % 3.8 % (0.0-7.0); HEMATOCRIT 40.9 % (42.0-52.0); HEMOGLOBIN 12.8 g/dl (14.0-18.0); LYMPHOCYTES # 0.9 10^3/ul (0.8-2.9); LYMPHOCYTES % 13.3 % (15.0-51.0); MEAN CORPUSCULAR HEMOGLOBIN 27.4 pg (29.0-33.0); MEAN CORPUSCULAR HGB CONC 31.3 g/dl (32.0-37.0); MEAN CORPUSCULAR VOLUME 87.6 fl (82.0-101.0); MEAN PLATELET VOLUME 11.9 fl (7.4-10.4); MONOCYTE # 0.7 10^3/ul (0.3-0.9); MONOCYTES % 9.9 % (0.0-11.0); NEUTROPHIL # 4.9 10^3/ul (1.6-7.5); NEUTROPHILS % 71.2 % (39.0-77.0); PLATELET COUNT 182 10^3/UL (140-415); RED BLOOD COUNT 4.67 10^6/ul (4.70-6.10); RED CELL DISTRIBUTION WIDTH 17.2 % (11.5-14.5)
[2018-01-23 08:44] LABS: WHITE BLOOD COUNT 6.9 10^3/ul (4.8-10.8)
[2018-01-23] MEDS: LINAGLIPTIN 5 MG TABLET PO (08:47)
[2018-01-23] MEDS: FUROSEMIDE 20 MG INJ IV ×2 (08:47→21:19)
[2018-01-23] MEDS: ATENOLOL 25 MG TAB PO (08:48)
[2018-01-23] MEDS: FAMOTIDINE 20 MG TAB PO ×2 (08:48→21:18)
[2018-01-23] MEDS: FERROUS SULFATE (EC) 325 MG TAB PO (08:48)
[2018-01-23] MEDS: ASPIRIN 81 MG TAB PO (08:48)
[2018-01-23] MEDS: LIDOCAINE 5% PATCH TD ×2 (09:00→09:58)
[2018-01-23 09:04] LABS: ANION GAP 17 (8-16); BLOOD UREA NITROGEN 20 mg/dl (7-20); CALCIUM 8.9 mg/dl (8.4-10.2); CARBON DIOXIDE 29 mmol/L (21-31); CHLORIDE 104 mmol/L (97-110); CREATININE 0.92 mg/dl (0.61-1.24); GLUCOSE 166 mg/dl (70-220); POTASSIUM 3.4 mmol/L (3.5-5.1); SODIUM 147 mmol/L (135-144)
[2018-01-23 09:05] LABS: INR 1.32; PROTIME 16.6 Sec (11.9-14.9); PT RATIO 1.3
[2018-01-23 09:06] LABS: PARTIAL THROMBOPLASTIN TIME 32.6 Sec (25.0-35.0)
[2018-01-23] MEDS: FLUCONAZOLE 200 MG/NS (PMX) 100 ML IVPB (11:23)
[2018-01-23] MEDS: ONDANSETRON 4 MG INJ IV (15:41)
[2018-01-23] MEDS: AL HYDROX/MG HYDROX/SIMETH 30 ML CUP PO (17:23)
[2018-01-23] MEDS: METOCLOPRAMIDE 10 MG INJ IV (18:22)
[2018-01-23] MEDS: VANCOMYCIN 1 GM 250 ML IVPB (21:20)
[2018-01-23] MEDS: INSULIN GLARGINE [LANtus] 3 ML PEN SC (21:23)
[2018-01-23 23:53] LABS: HEPARIN INDUCED PLATELET AB NEGATIVE (NEGATIVE)
[2018-01-24] MEDS: HYDROmorphONE 0.5 MG/0.5 ML SYG IV ×6 (00:59→22:17)
[2018-01-24] MEDS: ALBUTEROL/IPRATROPIUM (NEB) 3 ML AMP HHN ×5 (02:02→19:33)
[2018-01-24] MEDS: metFORMIN 500 MG TAB PO ×2 (08:10→17:43)
[2018-01-24] MEDS: INSULIN ASPART [NOVOLOG] 3 ML PEN SC ×4 (08:16→21:22)
[2018-01-24] MEDS: FERROUS SULFATE (EC) 325 MG TAB PO (08:18)
[2018-01-24] MEDS: EMPAGLIFLOZIN 10 MG TABLET PO (08:18)
[2018-01-24] MEDS: ASPIRIN 81 MG TAB PO (08:18)
[2018-01-24] MEDS: FAMOTIDINE 20 MG TAB PO ×2 (08:18→21:14)
[2018-01-24] MEDS: LINAGLIPTIN 5 MG TABLET PO (08:18)
[2018-01-24] MEDS: FUROSEMIDE 20 MG INJ IV ×2 (08:19→21:14)
[2018-01-24] MEDS: ATENOLOL 25 MG TAB PO (08:20)
[2018-01-24] MEDS: LIDOCAINE 5% PATCH TD ×2 (08:31)
[2018-01-24] MEDS: FLUCONAZOLE 200 MG/NS (PMX) 100 ML IVPB (11:18)
[2018-01-24] MEDS: ALTEPLASE (CATHFLO) 2 MG INJ CATHETER (15:20)
[2018-01-24 19:23] LABS: ADD MAN DIFF? NO
[2018-01-24 19:31] LABS: WHITE BLOOD COUNT 7.1 10^3/ul (4.8-10.8)
[2018-01-24 19:31] LABS: BASOPHILS % 0.4 % (0.0-2.0); EOSINOPHILS # 0.2 10^3/ul (0.0-0.5); HEMATOCRIT 36.3 % (42.0-52.0); HEMOGLOBIN 11.4 g/dl (14.0-18.0); LYMPHOCYTES # 1.1 10^3/ul (0.8-2.9); LYMPHOCYTES % 15.9 % (15.0-51.0); MEAN CORPUSCULAR HEMOGLOBIN 27.4 pg (29.0-33.0); MEAN CORPUSCULAR HGB CONC 31.4 g/dl (32.0-37.0); MEAN CORPUSCULAR VOLUME 87.3 fl (82.0-101.0); MEAN PLATELET VOLUME 11.2 fl (7.4-10.4); MONOCYTE # 0.7 10^3/ul (0.3-0.9); MONOCYTES % 9.5 % (0.0-11.0); NEUTROPHILS % 70.6 % (39.0-77.0); PLATELET COUNT 170 10^3/UL (140-415); RED BLOOD COUNT 4.16 10^6/ul (4.70-6.10); RED CELL DISTRIBUTION WIDTH 17.5 % (11.5-14.5)
[2018-01-24 19:51] LABS: ANION GAP 11 (8-16); BLOOD UREA NITROGEN 28 mg/dl (7-20); CARBON DIOXIDE 36 mmol/L (21-31); CHLORIDE 102 mmol/L (97-110); CREATININE 1.12 mg/dl (0.61-1.24); GLUCOSE 162 mg/dl (70-220); POTASSIUM 3.8 mmol/L (3.5-5.1); SODIUM 145 mmol/L (135-144)
[2018-01-24] MEDS: VANCOMYCIN 1 GM 250 ML IVPB (21:14)
[2018-01-24] MEDS: INSULIN GLARGINE [LANtus] 3 ML PEN SC (21:16)
[2018-01-25] MEDS: ALBUTEROL/IPRATROPIUM (NEB) 3 ML AMP HHN ×5 (01:51→20:22)
[2018-01-25] MEDS: HYDROmorphONE 0.5 MG/0.5 ML SYG IV ×4 (04:36→21:58)
[2018-01-25] MEDS: LINAGLIPTIN 5 MG TABLET PO (08:31)
[2018-01-25] MEDS: FAMOTIDINE 20 MG TAB PO ×2 (08:31→20:33)
[2018-01-25] MEDS: FERROUS SULFATE (EC) 325 MG TAB PO (08:31)
[2018-01-25] MEDS: FUROSEMIDE 20 MG INJ IV ×2 (08:31→20:33)
[2018-01-25] MEDS: EMPAGLIFLOZIN 10 MG TABLET PO (08:31)
[2018-01-25] MEDS: ASPIRIN 81 MG TAB PO (08:32)
[2018-01-25] MEDS: ATENOLOL 25 MG TAB PO (08:32)
[2018-01-25] MEDS: metFORMIN 500 MG TAB PO ×2 (08:32→17:10)
[2018-01-25] MEDS: LIDOCAINE 5% PATCH TD ×2 (08:34)
[2018-01-25] MEDS: INSULIN ASPART [NOVOLOG] 3 ML PEN SC ×4 (08:43→20:45)
[2018-01-25 10:32] LABS: ADD MAN DIFF? NO
[2018-01-25 10:36] LABS: BASOPHILS % 0.5 % (0.0-2.0); EOSINOPHILS # 0.2 10^3/ul (0.0-0.5); EOSINOPHILS % 3.3 % (0.0-7.0); HEMATOCRIT 37.2 % (42.0-52.0); HEMOGLOBIN 11.5 g/dl (14.0-18.0); LYMPHOCYTES % 15.9 % (15.0-51.0); MEAN CORPUSCULAR HEMOGLOBIN 27.4 pg (29.0-33.0); MEAN CORPUSCULAR HGB CONC 30.9 g/dl (32.0-37.0); MEAN CORPUSCULAR VOLUME 88.8 fl (82.0-101.0); MEAN PLATELET VOLUME 11.1 fl (7.4-10.4); MONOCYTE # 0.6 10^3/ul (0.3-0.9); MONOCYTES % 8.7 % (0.0-11.0); NEUTROPHIL # 4.5 10^3/ul (1.6-7.5); NEUTROPHILS % 70.8 % (39.0-77.0); PLATELET COUNT 163 10^3/UL (140-415); RED BLOOD COUNT 4.19 10^6/ul (4.70-6.10); RED CELL DISTRIBUTION WIDTH 17.1 % (11.5-14.5)
[2018-01-25 10:36] LABS: WHITE BLOOD COUNT 6.3 10^3/ul (4.8-10.8)
[2018-01-25 10:58] LABS: ANION GAP 14 (8-16); BLOOD UREA NITROGEN 26 mg/dl (7-20); CARBON DIOXIDE 34 mmol/L (21-31); CHLORIDE 101 mmol/L (97-110); CREATININE 0.95 mg/dl (0.61-1.24); GLUCOSE 149 mg/dl (70-220); POTASSIUM 3.4 mmol/L (3.5-5.1); SODIUM 146 mmol/L (135-144)
[2018-01-25] MEDS: FLUCONAZOLE 200 MG/NS (PMX) 100 ML IVPB (11:00)
[2018-01-25] MEDS ORDERED: LORAZEPAM 2 MG INJ IV (13:00)
[2018-01-25] MEDS: SALMETEROL/FLUTICASONE 250/50 INHA INH ×2 (14:30→23:09)
[2018-01-25] MEDS: TIOTROPIUM 18 MCG CAPSULE INHA DEV INH (14:30)
[2018-01-25] MEDS: REPAGLINIDE 1 MG TAB PO (17:09)
[2018-01-25] MEDS: METHYLPREDNISOLONE 125 MG INJ IV (17:09)
[2018-01-25] MEDS: ONDANSETRON 4 MG INJ IV (17:10)
[2018-01-25] MEDS: POTASSIUM CHLORIDE (SR) 20 MEQ TAB PO (17:44)
[2018-01-25] MEDS: INSULIN GLARGINE [LANtus] 3 ML PEN SC (20:44)
[2018-01-25 21:28] LABS: VANCOMYCIN,TROUGH 25.4 ug/ml (10.0-20.0)
[2018-01-26] MEDS: ALBUTEROL/IPRATROPIUM (NEB) 3 ML AMP HHN ×4 (01:10→20:00)
[2018-01-26] MEDS: HYDROmorphONE 0.5 MG/0.5 ML SYG IV ×2 (02:43→12:16)
[2018-01-26] MEDS: INSULIN ASPART [NOVOLOG] 3 ML PEN SC ×6 (02:51→21:00)
[2018-01-26] MEDS: TIOTROPIUM 18 MCG CAPSULE INHA DEV INH (08:35)
[2018-01-26] MEDS: FUROSEMIDE 20 MG INJ IV ×2 (08:35→21:57)
[2018-01-26] MEDS: FAMOTIDINE 20 MG TAB PO ×2 (08:35→21:58)
[2018-01-26] MEDS: FERROUS SULFATE (EC) 325 MG TAB PO (08:35)
[2018-01-26] MEDS: metFORMIN 500 MG TAB PO ×2 (08:35→18:33)
[2018-01-26] MEDS: ASPIRIN 81 MG TAB PO (08:35)
[2018-01-26] MEDS: LINAGLIPTIN 5 MG TABLET PO (08:35)
[2018-01-26] MEDS: LIDOCAINE 5% PATCH TD ×4 (08:36→12:11)
[2018-01-26] MEDS: ATENOLOL 25 MG TAB PO (08:36)
[2018-01-26] MEDS: EMPAGLIFLOZIN 10 MG TABLET PO (08:36)
[2018-01-26] MEDS: SALMETEROL/FLUTICASONE 250/50 INHA INH ×2 (08:37→21:56)
[2018-01-26] MEDS: REPAGLINIDE 1 MG TAB PO ×3 (08:41→16:27)
[2018-01-26] MEDS: FLUCONAZOLE 200 MG/NS (PMX) 100 ML IVPB (11:52)
[2018-01-26] MEDS ORDERED: HYDROmorphONE 2 MG TAB PO (16:00)
[2018-01-26] MEDS: HYDROmorphONE 2 MG TAB PO ×2 (16:28→22:04)
[2018-01-26] MEDS: DEXTROSE 50% 50 ML SYRINGE IV (18:48)
[2018-01-26] MEDS: ONDANSETRON 4 MG INJ IV (20:32)
[2018-01-26] MEDS: APIXABAN 5 MG TABLET PO (21:56)
[2018-01-26] MEDS: VANCOMYCIN 500MG/NS (PMX) 100 ML IVPB ×2 (22:02→22:22)
[2018-01-26] MEDS: INSULIN GLARGINE [LANtus] 3 ML PEN SC (22:13)
[2018-01-27] MEDS: ALBUTEROL/IPRATROPIUM (NEB) 3 ML AMP HHN ×4 (02:12→20:14)
[2018-01-27] MEDS: LIDOCAINE 5% PATCH TD (07:37)
[2018-01-27] MEDS: INSULIN ASPART [NOVOLOG] 3 ML PEN SC ×4 (08:00→20:19)
[2018-01-27] MEDS: APIXABAN 5 MG TABLET PO ×2 (08:11→20:18)
[2018-01-27] MEDS: REPAGLINIDE 1 MG TAB PO ×3 (08:11→17:58)
[2018-01-27] MEDS: EMPAGLIFLOZIN 10 MG TABLET PO (08:11)
[2018-01-27] MEDS: ASPIRIN 81 MG TAB PO (08:11)
[2018-01-27] MEDS: LINAGLIPTIN 5 MG TABLET PO (08:11)
[2018-01-27] MEDS: FERROUS SULFATE (EC) 325 MG TAB PO (08:11)
[2018-01-27] MEDS: FAMOTIDINE 20 MG TAB PO ×2 (08:11→20:18)
[2018-01-27] MEDS: metFORMIN 500 MG TAB PO ×2 (08:11→17:57)
[2018-01-27] MEDS: SALMETEROL/FLUTICASONE 250/50 INHA INH ×2 (08:12→20:18)
[2018-01-27] MEDS: TIOTROPIUM 18 MCG CAPSULE INHA DEV INH (08:12)
[2018-01-27] MEDS: ATENOLOL 25 MG TAB PO (08:15)
[2018-01-27] MEDS: FUROSEMIDE 20 MG INJ IV ×2 (08:15→20:19)
[2018-01-27] MEDS: FLUCONAZOLE 200 MG/NS (PMX) 100 ML IVPB (11:27)
[2018-01-27] MEDS: HYDROmorphONE 2 MG TAB PO ×2 (11:27→20:24)
[2018-01-27] MEDS: INSULIN GLARGINE [LANtus] 3 ML PEN SC (20:19)
[2018-01-27] MEDS: VANCOMYCIN 500MG/NS (PMX) 100 ML IVPB (20:23)
[2018-01-28] MEDS: ALBUTEROL/IPRATROPIUM (NEB) 3 ML AMP HHN ×4 (01:55→21:31)
[2018-01-28] MEDS: HYDROmorphONE 2 MG TAB PO ×5 (04:56→22:43)
[2018-01-28 06:24] LABS: ADD MAN DIFF? NO
[2018-01-28 06:35] LABS: BASOPHILS % 0.4 % (0.0-2.0); EOSINOPHILS # 0.2 10^3/ul (0.0-0.5); HEMATOCRIT 34.8 % (42.0-52.0); HEMOGLOBIN 10.7 g/dl (14.0-18.0); LYMPHOCYTES % 13.9 % (15.0-51.0); MEAN CORPUSCULAR HEMOGLOBIN 27.1 pg (29.0-33.0); MEAN CORPUSCULAR HGB CONC 30.7 g/dl (32.0-37.0); MEAN CORPUSCULAR VOLUME 88.1 fl (82.0-101.0); MEAN PLATELET VOLUME 11.5 fl (7.4-10.4); MONOCYTE # 0.7 10^3/ul (0.3-0.9); MONOCYTES % 9.4 % (0.0-11.0); NEUTROPHIL # 5.3 10^3/ul (1.6-7.5); NEUTROPHILS % 72.5 % (39.0-77.0); PLATELET COUNT 192 10^3/UL (140-415); RED BLOOD COUNT 3.95 10^6/ul (4.70-6.10)
[2018-01-28 06:35] LABS: WHITE BLOOD COUNT 7.3 10^3/ul (4.8-10.8)
[2018-01-28 07:07] LABS: INR 1.64; PROTIME 19.8 Sec (11.9-14.9); PT RATIO 1.5
[2018-01-28 07:08] LABS: PARTIAL THROMBOPLASTIN TIME 42.2 Sec (25.0-35.0)
[2018-01-28 07:12] LABS: ALANINE AMINOTRANSFERASE 21 IU/L (13-69); ALBUMIN 3.1 g/dl (3.3-4.9); ALBUMIN/GLOBULIN RATIO 0.79; ALKALINE PHOSPHATASE 160 IU/L (42-121); ANION GAP 14 (8-16); ASPARTATE AMINO TRANSFERASE 23 IU/L (15-46); BILIRUBIN,INDIRECT 0.5 mg/dl (0-1.1); BILIRUBIN,TOTAL 0.5 mg/dl (0.2-1.3); BLOOD UREA NITROGEN 36 mg/dl (7-20); CALCIUM 8.8 mg/dl (8.4-10.2); CARBON DIOXIDE 35 mmol/L (21-31); CHLORIDE 98 mmol/L (97-110); CREATININE 1.04 mg/dl (0.61-1.24); GLUCOSE 132 mg/dl (70-220); POTASSIUM 4.3 mmol/L (3.5-5.1); SODIUM 143 mmol/L (135-144)
[2018-01-28] MEDS: INSULIN ASPART [NOVOLOG] 3 ML PEN SC ×4 (08:00→20:27)
[2018-01-28] MEDS: LIDOCAINE 5% PATCH TD ×2 (08:11)
[2018-01-28] MEDS: TIOTROPIUM 18 MCG CAPSULE INHA DEV INH (08:12)
[2018-01-28] MEDS: REPAGLINIDE 1 MG TAB PO ×3 (08:13→17:25)
[2018-01-28] MEDS: SALMETEROL/FLUTICASONE 250/50 INHA INH ×2 (08:13→20:03)
[2018-01-28] MEDS: FUROSEMIDE 20 MG INJ IV (08:13)
[2018-01-28] MEDS: FERROUS SULFATE (EC) 325 MG TAB PO (08:14)
[2018-01-28] MEDS: ASPIRIN 81 MG TAB PO (08:14)
[2018-01-28] MEDS: LINAGLIPTIN 5 MG TABLET PO (08:14)
[2018-01-28] MEDS: metFORMIN 500 MG TAB PO ×2 (08:14→17:25)
[2018-01-28] MEDS: EMPAGLIFLOZIN 10 MG TABLET PO (08:14)
[2018-01-28] MEDS: APIXABAN 5 MG TABLET PO ×2 (08:14→20:26)
[2018-01-28] MEDS: FAMOTIDINE 20 MG TAB PO ×2 (08:15→20:26)
[2018-01-28] MEDS: ATENOLOL 25 MG TAB PO (08:15)
[2018-01-28] MEDS: BENAZEPRIL 10 MG TAB PO (12:30)
[2018-01-28] MEDS: FLUCONAZOLE 200 MG/NS (PMX) 100 ML IVPB (12:35)
[2018-01-28] MEDS: FUROSEMIDE 40 MG INJ IV (17:26)
[2018-01-28] MEDS: VANCOMYCIN 500MG/NS (PMX) 100 ML IVPB (20:25)
[2018-01-28] MEDS: INSULIN GLARGINE [LANtus] 3 ML PEN SC (20:26)
[2018-01-29] MEDS: ALBUTEROL/IPRATROPIUM (NEB) 3 ML AMP HHN ×2 (01:58→08:00)
[2018-01-29] MEDS: HYDROmorphONE 2 MG TAB PO ×2 (02:22→11:34)
[2018-01-29] MEDS: FUROSEMIDE 40 MG INJ IV (05:31)
[2018-01-29] MEDS: INSULIN ASPART [NOVOLOG] 3 ML PEN SC ×2 (08:00→12:00)
[2018-01-29] MEDS: FERROUS SULFATE (EC) 325 MG TAB PO (08:22)
[2018-01-29] MEDS: SALMETEROL/FLUTICASONE 250/50 INHA INH (08:22)
[2018-01-29] MEDS: FAMOTIDINE 20 MG TAB PO (08:23)
[2018-01-29] MEDS: metFORMIN 500 MG TAB PO (08:23)
[2018-01-29] MEDS: EMPAGLIFLOZIN 10 MG TABLET PO (08:23)
[2018-01-29] MEDS: LINAGLIPTIN 5 MG TABLET PO (08:23)
[2018-01-29] MEDS: REPAGLINIDE 1 MG TAB PO ×2 (08:23→11:34)
[2018-01-29] MEDS: ASPIRIN 81 MG TAB PO (08:23)
[2018-01-29] MEDS: ATENOLOL 25 MG TAB PO (08:24)
[2018-01-29] MEDS: TIOTROPIUM 18 MCG CAPSULE INHA DEV INH (08:24)
[2018-01-29] MEDS: BENAZEPRIL 10 MG TAB PO (08:24)
[2018-01-29] MEDS: APIXABAN 5 MG TABLET PO (08:24)
[2018-01-29] MEDS: LIDOCAINE 5% PATCH TD ×2 (09:00)
[2018-01-29] MEDS: FLUCONAZOLE 200 MG/NS (PMX) 100 ML IVPB (11:34)
== END 2018-01-29 16:23 | DRG 219 ==
LOC: TEL 19:30 → ICU 01-14 14:17 → MS4 01-17 23:57 → E/R 16:59 → ICU 01-14 15:55
PROC: 02RF08Z Replacement of Aortic Valve with Zooplastic Tissue, Open Approach (ICD-10-PCS; principal; 2018-01-14 07:30)
PROC: 02100Z9 Bypass Coronary Artery, One Artery from Left Internal Mammary, Open Approach (ICD-10-PCS; 2018-01-14 07:30)
PROC: 5A1221Z Performance of Cardiac Output, Continuous (ICD-10-PCS; 2018-01-14 07:30)
PROC: 02HV33Z Insertion of Infusion Device into Superior Vena Cava, Percutaneous Approach (ICD-10-PCS; 2018-01-14 08:16)
DX: I35.0 Nonrheumatic aortic (valve) stenosis (principal); L89.313 Pressure ulcer of right buttock, stage 3; T80.219A Unspecified infection due to central venous catheter, initial encounter; I50.23 Acute on chronic systolic (congestive) heart failure; J18.9 Pneumonia, unspecified organism; A41.1 Sepsis due to other specified staphylococcus; N17.9 Acute kidney failure, unspecified; I13.0 Hypertensive heart and chronic kidney disease with heart failure and stage 1 through stage 4 chronic kidney disease, or unspecified chronic kidney disease; E87.0 Hyperosmolality and hypernatremia; I48.92 Unspecified atrial flutter; N39.0 Urinary tract infection, site not specified; B37.49 Other urogenital candidiasis; D69.6 Thrombocytopenia, unspecified; E11.22 Type 2 diabetes mellitus with diabetic chronic kidney disease; E11.40 Type 2 diabetes mellitus with diabetic neuropathy, unspecified; E11.649 Type 2 diabetes mellitus with hypoglycemia without coma; I48.0 Paroxysmal atrial fibrillation; I27.20 Pulmonary hypertension, unspecified; I73.9 Peripheral vascular disease, unspecified; I25.10 Atherosclerotic heart disease of native coronary artery without angina pectoris; J44.9 Chronic obstructive pulmonary disease, unspecified; B96.89 Other specified bacterial agents as the cause of diseases classified elsewhere; D64.9 Anemia, unspecified; E87.6 Hypokalemia; E78.5 Hyperlipidemia, unspecified; I25.5 Ischemic cardiomyopathy; K80.20 Calculus of gallbladder without cholecystitis without obstruction; N18.9 Chronic kidney disease, unspecified; Z89.512 Acquired absence of left leg below knee; Z89.511 Acquired absence of right leg below knee; Z93.3 Colostomy status; Z87.891 Personal history of nicotine dependence; Z79.4 Long term (current) use of insulin; Z79.02 Long term (current) use of antithrombotics/antiplatelets; Z79.82 Long term (current) use of aspirin
CPT/HCPCS: 36415; 36430; 36569; 36592; 36600; 71045; 76700; 76937; 80048; 80053; 80202; 81001; 81003; 82570; 82803; 82947; 82962; 83036; 83605; 83690; 83735; 83880; 84100; 84439; 84443; 84484; 85014; 85025; 85610; 85730; 86022; 86635; 86644; 86850; 86900; 86901; 86920; 86945; 87040; 87070; 87081; 87086; 88304; 88311; 92526; 92610; 93005; 93312; 93325; 93880; 94002; 94003; 94640; 94660; 94664; 94770; 96374; 96375; 97110; 97162; 97530; 99285-25

== ENCOUNTER 2018-01-31 10:58 | Inpatient (IN) | payer MEDICARE, MEDICAID ==
[2018-01-31 12:11] LABS: ADD MAN DIFF? NO
[2018-01-31 12:24] LABS: BASOPHILS % 0.5 % (0.0-2.0); EOSINOPHILS # 0.2 10^3/ul (0.0-0.5); EOSINOPHILS % 3.5 % (0.0-7.0); HEMATOCRIT 36.3 % (42.0-52.0); HEMOGLOBIN 11.6 g/dl (14.0-18.0); LYMPHOCYTES # 1.1 10^3/ul (0.8-2.9); LYMPHOCYTES % 17.7 % (15.0-51.0); MEAN CORPUSCULAR HEMOGLOBIN 27.6 pg (29.0-33.0); MEAN CORPUSCULAR VOLUME 86.2 fl (82.0-101.0); MEAN PLATELET VOLUME 10.8 fl (7.4-10.4); MONOCYTE # 0.7 10^3/ul (0.3-0.9); MONOCYTES % 12.2 % (0.0-11.0); NEUTROPHIL # 3.9 10^3/ul (1.6-7.5); NEUTROPHILS % 65.6 % (39.0-77.0); PLATELET COUNT 257 10^3/UL (140-415); RED BLOOD COUNT 4.21 10^6/ul (4.70-6.10); RED CELL DISTRIBUTION WIDTH 15.9 % (11.5-14.5)
[2018-01-31 12:41] LABS: ALANINE AMINOTRANSFERASE 30 IU/L (13-69); ALBUMIN 3.4 g/dl (3.3-4.9); ALKALINE PHOSPHATASE 218 IU/L (42-121); ANION GAP 10 (8-16); ASPARTATE AMINO TRANSFERASE 31 IU/L (15-46); BILIRUBIN,INDIRECT 0.5 mg/dl (0-1.1); BILIRUBIN,TOTAL 0.5 mg/dl (0.2-1.3); BLOOD UREA NITROGEN 29 mg/dl (7-20); CALCIUM 9.2 mg/dl (8.4-10.2); CARBON DIOXIDE 36 mmol/L (21-31); CHLORIDE 101 mmol/L (97-110); CREATININE 1.03 mg/dl (0.61-1.24); GLUCOSE 118 mg/dl (70-220); POTASSIUM 4.2 mmol/L (3.5-5.1); SODIUM 143 mmol/L (135-144); TOTAL PROTEIN 7.6 g/dl (6.1-8.1)
[2018-01-31] MEDS ORDERED: ONDANSETRON 4 MG INJ IV ×2 (14:30→15:00)
[2018-01-31] MEDS ORDERED: ACETAMINOPHEN 325 MG TAB PO ×3 (14:30→15:00)
[2018-01-31] MEDS: FUROSEMIDE 20 MG INJ IV (14:45)
[2018-01-31] MEDS ORDERED: NACL 0.9% 3 ML SYG IV (15:00)
[2018-01-31] MEDS ORDERED: morphine 2 MG INJ IV (15:00)
[2018-01-31] MEDS ORDERED: ONDANSETRON 4 MG TAB PO (15:00)
[2018-01-31] MEDS ORDERED: VANCOMYCIN IV PER PHARMACY XX (15:00)
[2018-01-31] MEDS: INSULIN ASPART [NOVOLOG] 3 ML PEN SC ×2 (18:05→20:35)
[2018-01-31] MEDS ORDERED: GLUCOSE GEL 15 GRAM TUBE PO ×2 (18:30)
[2018-01-31] MEDS ORDERED: GLUCAGON 1 MG INJ IM (18:30)
[2018-01-31] MEDS ORDERED: GLUCOSE GEL 15 GRAM TUBE BUCCAL (18:30)
[2018-01-31] MEDS ORDERED: DEXTROSE 50% 50 ML SYRINGE IV ×2 (18:30)
[2018-01-31] MEDS: APIXABAN 5 MG TABLET PO (20:32)
[2018-01-31] MEDS: SALMETEROL/FLUTICASONE 250/50 INHA INH (20:33)
[2018-01-31] MEDS: INSULIN GLARGINE [LANtus] 3 ML PEN SC (20:34)
[2018-01-31] MEDS: VANCOMYCIN 1 GM 250 ML IVPB (20:36)
[2018-01-31] MEDS: HYDROmorphONE 0.5 MG/0.5 ML SYG IV (20:38)
[2018-02-01] MEDS: ACCU-CHEK XX (02:24)
[2018-02-01] MEDS: INSULIN ASPART [NOVOLOG] 3 ML PEN SC ×4 (08:00→20:26)
[2018-02-01] MEDS: SALMETEROL/FLUTICASONE 250/50 INHA INH ×2 (08:15→20:17)
[2018-02-01] MEDS: DULOXETINE 30 MG CAP DR PO (08:15)
[2018-02-01] MEDS: TIOTROPIUM 18 MCG CAPSULE INHA DEV INH (08:15)
[2018-02-01] MEDS: BENAZEPRIL 10 MG TAB PO (08:15)
[2018-02-01] MEDS: ATENOLOL 25 MG TAB PO (08:16)
[2018-02-01] MEDS: APIXABAN 5 MG TABLET PO ×2 (08:16→20:17)
[2018-02-01] MEDS: FERROUS SULFATE (EC) 325 MG TAB PO (08:16)
[2018-02-01] MEDS: ASPIRIN 81 MG TAB PO (08:16)
[2018-02-01 08:50] LABS: ADD MAN DIFF? NO
[2018-02-01 08:52] LABS: WHITE BLOOD COUNT 5.3 10^3/ul (4.8-10.8)
[2018-02-01 08:52] LABS: BASOPHILS % 0.6 % (0.0-2.0); EOSINOPHILS # 0.2 10^3/ul (0.0-0.5); EOSINOPHILS % 3.7 % (0.0-7.0); HEMATOCRIT 36.2 % (42.0-52.0); HEMOGLOBIN 11.4 g/dl (14.0-18.0); LYMPHOCYTES # 1.2 10^3/ul (0.8-2.9); LYMPHOCYTES % 23.2 % (15.0-51.0); MEAN CORPUSCULAR HGB CONC 31.5 g/dl (32.0-37.0); MEAN CORPUSCULAR VOLUME 85.8 fl (82.0-101.0); MEAN PLATELET VOLUME 10.5 fl (7.4-10.4); MONOCYTE # 0.7 10^3/ul (0.3-0.9); MONOCYTES % 13.3 % (0.0-11.0); NEUTROPHIL # 3.1 10^3/ul (1.6-7.5); NEUTROPHILS % 58.3 % (39.0-77.0); PLATELET COUNT 254 10^3/UL (140-415); RED BLOOD COUNT 4.22 10^6/ul (4.70-6.10); RED CELL DISTRIBUTION WIDTH 16.1 % (11.5-14.5)
[2018-02-01] MEDS ORDERED: ENOXAPARIN 40 MG/0.4 ML SYG SC (09:00)
[2018-02-01 09:16] LABS: ANION GAP 16 (8-16); BLOOD UREA NITROGEN 28 mg/dl (7-20); CALCIUM 9.2 mg/dl (8.4-10.2); CARBON DIOXIDE 32 mmol/L (21-31); CHLORIDE 99 mmol/L (97-110); CREATININE 1.13 mg/dl (0.61-1.24); GLUCOSE 100 mg/dl (70-220); POTASSIUM 4.3 mmol/L (3.5-5.1); SODIUM 143 mmol/L (135-144)
[2018-02-01] MEDS: NITROGLYCERIN (SL) 0.4 MG TAB SL ×2 (11:07→11:12)
[2018-02-01] MEDS: OXYCODONE/ACETAMINOPHEN (5/325) TAB PO ×2 (12:03→20:18)
[2018-02-01 19:08] LABS: TROPONIN-I 0.024 ng/ml (0.00-0.12)
[2018-02-01] MEDS ORDERED: VANCOMYCIN 500MG/NS (PMX) 100 ML IVPB (20:00)
[2018-02-01] MEDS: DOXYCYCLINE 100 MG TAB PO (20:17)
[2018-02-01] MEDS: ALPRAZOLAM 0.25 MG TAB PO (20:22)
[2018-02-01] MEDS: INSULIN GLARGINE [LANtus] 3 ML PEN SC (20:24)
[2018-02-02] MEDS: ACCU-CHEK XX (01:37)
[2018-02-02 01:49] LABS: TROPONIN-I 0.023 ng/ml (0.00-0.12)
[2018-02-02 05:44] LABS: ADD MAN DIFF? NO
[2018-02-02 05:47] LABS: BASOPHILS % 0.5 % (0.0-2.0); EOSINOPHILS # 0.3 10^3/ul (0.0-0.5); EOSINOPHILS % 5.9 % (0.0-7.0); HEMATOCRIT 35.5 % (42.0-52.0); HEMOGLOBIN 11.2 g/dl (14.0-18.0); LYMPHOCYTES # 1.1 10^3/ul (0.8-2.9); LYMPHOCYTES % 24.8 % (15.0-51.0); MEAN CORPUSCULAR HEMOGLOBIN 27.3 pg (29.0-33.0); MEAN CORPUSCULAR HGB CONC 31.5 g/dl (32.0-37.0); MEAN CORPUSCULAR VOLUME 86.6 fl (82.0-101.0); MEAN PLATELET VOLUME 10.6 fl (7.4-10.4); MONOCYTE # 0.6 10^3/ul (0.3-0.9); MONOCYTES % 13.3 % (0.0-11.0); NEUTROPHIL # 2.3 10^3/ul (1.6-7.5); NEUTROPHILS % 54.8 % (39.0-77.0); PLATELET COUNT 234 10^3/UL (140-415); RED CELL DISTRIBUTION WIDTH 15.9 % (11.5-14.5)
[2018-02-02 05:47] LABS: WHITE BLOOD COUNT 4.3 10^3/ul (4.8-10.8)
[2018-02-02] MEDS: PANTOPRAZOLE 40 MG INJ IV (05:48)
[2018-02-02] MEDS: KETOROLAC 15 MG INJ IV ×3 (05:49→19:57)
[2018-02-02 06:16] LABS: ANION GAP 11 (8-16); BLOOD UREA NITROGEN 28 mg/dl (7-20); CALCIUM 9.1 mg/dl (8.4-10.2); CARBON DIOXIDE 36 mmol/L (21-31); CHLORIDE 104 mmol/L (97-110); CREATININE 0.89 mg/dl (0.61-1.24); GLUCOSE 112 mg/dl (70-220); POTASSIUM 4.5 mmol/L (3.5-5.1); SODIUM 146 mmol/L (135-144)
[2018-02-02] MEDS: INSULIN ASPART [NOVOLOG] 3 ML PEN SC ×5 (08:00→20:09)
[2018-02-02] MEDS: SALMETEROL/FLUTICASONE 250/50 INHA INH ×2 (08:14→20:02)
[2018-02-02] MEDS: APIXABAN 5 MG TABLET PO ×2 (08:15→20:02)
[2018-02-02] MEDS: DOXYCYCLINE 100 MG TAB PO ×2 (08:15→20:02)
[2018-02-02] MEDS: FERROUS SULFATE (EC) 325 MG TAB PO (08:15)
[2018-02-02] MEDS: DULOXETINE 30 MG CAP DR PO (08:15)
[2018-02-02] MEDS: TIOTROPIUM 18 MCG CAPSULE INHA DEV INH (08:15)
[2018-02-02] MEDS: BENAZEPRIL 10 MG TAB PO (08:16)
[2018-02-02] MEDS: ATENOLOL 25 MG TAB PO (08:17)
[2018-02-02] MEDS: SOD CHLORIDE 0.45% 1,000 ML IV (11:14)
[2018-02-02] MEDS: OXYCODONE/ACETAMINOPHEN (5/325) TAB PO (15:01)
[2018-02-02] MEDS: INSULIN GLARGINE [LANtus] 3 ML PEN SC (19:59)
[2018-02-02] MEDS: ALPRAZOLAM 0.25 MG TAB PO (20:02)
[2018-02-02] MEDS: HYDROmorphONE 2 MG TAB PO (21:58)
[2018-02-03] MEDS: ACCU-CHEK XX (01:59)
[2018-02-03] MEDS: HYDROmorphONE 2 MG TAB PO ×2 (03:41→20:54)
[2018-02-03] MEDS: PANTOPRAZOLE 40 MG INJ IV (05:15)
[2018-02-03] MEDS: SOD CHLORIDE 0.45% 1,000 ML IV (05:16)
[2018-02-03 07:26] LABS: ADD MAN DIFF? NO
[2018-02-03 07:30] LABS: WHITE BLOOD COUNT 4.4 10^3/ul (4.8-10.8)
[2018-02-03 07:30] LABS: BASOPHILS % 0.7 % (0.0-2.0); EOSINOPHILS # 0.3 10^3/ul (0.0-0.5); EOSINOPHILS % 6.2 % (0.0-7.0); HEMATOCRIT 33.7 % (42.0-52.0); HEMOGLOBIN 10.5 g/dl (14.0-18.0); LYMPHOCYTES # 1.1 10^3/ul (0.8-2.9); LYMPHOCYTES % 25.3 % (15.0-51.0); MEAN CORPUSCULAR HEMOGLOBIN 27.2 pg (29.0-33.0); MEAN CORPUSCULAR HGB CONC 31.2 g/dl (32.0-37.0); MEAN CORPUSCULAR VOLUME 87.3 fl (82.0-101.0); MEAN PLATELET VOLUME 10.6 fl (7.4-10.4); MONOCYTE # 0.5 10^3/ul (0.3-0.9); MONOCYTES % 12.1 % (0.0-11.0); NEUTROPHIL # 2.4 10^3/ul (1.6-7.5); NEUTROPHILS % 54.8 % (39.0-77.0); PLATELET COUNT 212 10^3/UL (140-415); RED BLOOD COUNT 3.86 10^6/ul (4.70-6.10); RED CELL DISTRIBUTION WIDTH 15.2 % (11.5-14.5)
[2018-02-03 08:08] LABS: ANION GAP 13 (8-16); BLOOD UREA NITROGEN 41 mg/dl (7-20); CALCIUM 8.4 mg/dl (8.4-10.2); CARBON DIOXIDE 30 mmol/L (21-31); CHLORIDE 102 mmol/L (97-110); CREATININE 1.05 mg/dl (0.61-1.24); GLUCOSE 157 mg/dl (70-220); POTASSIUM 4.3 mmol/L (3.5-5.1); SODIUM 141 mmol/L (135-144)
[2018-02-03] MEDS: INSULIN ASPART [NOVOLOG] 3 ML PEN SC ×4 (08:13→20:56)
[2018-02-03] MEDS: SALMETEROL/FLUTICASONE 250/50 INHA INH ×2 (08:15→20:54)
[2018-02-03] MEDS: DULOXETINE 30 MG CAP DR PO (08:16)
[2018-02-03] MEDS: DOXYCYCLINE 100 MG TAB PO ×2 (08:16→20:54)
[2018-02-03] MEDS: FERROUS SULFATE (EC) 325 MG TAB PO (08:16)
[2018-02-03] MEDS: APIXABAN 5 MG TABLET PO ×2 (08:16→20:54)
[2018-02-03] MEDS: TIOTROPIUM 18 MCG CAPSULE INHA DEV INH (08:16)
[2018-02-03] MEDS: ATENOLOL 25 MG TAB PO (09:35)
[2018-02-03] MEDS: AMLODIPINE 10 MG TAB PO (09:35)
[2018-02-03] MEDS: BENAZEPRIL 10 MG TAB PO ×2 (09:35→21:16)
[2018-02-03] MEDS: KETOROLAC 15 MG INJ IV ×2 (11:59→12:59)
[2018-02-03] MEDS: ALPRAZOLAM 0.25 MG TAB PO (20:54)
[2018-02-03] MEDS: INSULIN GLARGINE [LANtus] 3 ML PEN SC (20:56)
[2018-02-04] MEDS: SOD CHLORIDE 0.45% 1,000 ML IV ×2 (01:30→21:30)
[2018-02-04] MEDS: ACCU-CHEK XX (01:34)
[2018-02-04] MEDS: PANTOPRAZOLE 40 MG INJ IV (05:14)
[2018-02-04] MEDS: INSULIN ASPART [NOVOLOG] 3 ML PEN SC ×4 (08:00→21:12)
[2018-02-04] MEDS: ATENOLOL 25 MG TAB PO (08:48)
[2018-02-04] MEDS: DOXYCYCLINE 100 MG TAB PO ×2 (08:48→21:13)
[2018-02-04] MEDS: DULOXETINE 30 MG CAP DR PO (08:48)
[2018-02-04] MEDS: SALMETEROL/FLUTICASONE 250/50 INHA INH ×2 (08:48→21:00)
[2018-02-04] MEDS: TIOTROPIUM 18 MCG CAPSULE INHA DEV INH (08:48)
[2018-02-04] MEDS: AMLODIPINE 10 MG TAB PO (08:49)
[2018-02-04] MEDS: BENAZEPRIL 10 MG TAB PO ×2 (08:49→21:13)
[2018-02-04] MEDS: APIXABAN 5 MG TABLET PO ×2 (08:49→21:13)
[2018-02-04] MEDS: FERROUS SULFATE (EC) 325 MG TAB PO (08:49)
[2018-02-04] MEDS: KETOROLAC 15 MG INJ IV ×2 (09:42→16:08)
[2018-02-04] MEDS: INSULIN GLARGINE [LANtus] 3 ML PEN SC (21:13)
[2018-02-05] MEDS: HYDROmorphONE 2 MG TAB PO ×3 (01:38→17:59)
[2018-02-05] MEDS: ACCU-CHEK XX (02:56)
[2018-02-05] MEDS: PANTOPRAZOLE 40 MG INJ IV (05:20)
[2018-02-05 07:08] LABS: ADD MAN DIFF? NO
[2018-02-05 07:22] LABS: BASOPHILS % 0.6 % (0.0-2.0); EOSINOPHILS # 0.3 10^3/ul (0.0-0.5); EOSINOPHILS % 6.3 % (0.0-7.0); HEMATOCRIT 35.8 % (42.0-52.0); LYMPHOCYTES # 1.2 10^3/ul (0.8-2.9); LYMPHOCYTES % 25.3 % (15.0-51.0); MEAN CORPUSCULAR HEMOGLOBIN 26.8 pg (29.0-33.0); MEAN CORPUSCULAR HGB CONC 30.7 g/dl (32.0-37.0); MEAN CORPUSCULAR VOLUME 87.3 fl (82.0-101.0); MEAN PLATELET VOLUME 10.3 fl (7.4-10.4); MONOCYTE # 0.5 10^3/ul (0.3-0.9); MONOCYTES % 11.2 % (0.0-11.0); NEUTROPHIL # 2.7 10^3/ul (1.6-7.5); PLATELET COUNT 195 10^3/UL (140-415); RED CELL DISTRIBUTION WIDTH 14.9 % (11.5-14.5)
[2018-02-05 07:22] LABS: WHITE BLOOD COUNT 4.7 10^3/ul (4.8-10.8)
[2018-02-05 07:48] LABS: ANION GAP 11 (8-16); BLOOD UREA NITROGEN 26 mg/dl (7-20); CALCIUM 8.9 mg/dl (8.4-10.2); CARBON DIOXIDE 31 mmol/L (21-31); CHLORIDE 108 mmol/L (97-110); CREATININE 0.78 mg/dl (0.61-1.24); GLUCOSE 98 mg/dl (70-220); POTASSIUM 4.5 mmol/L (3.5-5.1); SODIUM 145 mmol/L (135-144)
[2018-02-05] MEDS: INSULIN ASPART [NOVOLOG] 3 ML PEN SC ×4 (08:00→20:46)
[2018-02-05] MEDS: SALMETEROL/FLUTICASONE 250/50 INHA INH ×2 (08:04→20:45)
[2018-02-05] MEDS: TIOTROPIUM 18 MCG CAPSULE INHA DEV INH (08:04)
[2018-02-05] MEDS: AMLODIPINE 10 MG TAB PO (08:43)
[2018-02-05] MEDS: DOXYCYCLINE 100 MG TAB PO (08:43)
[2018-02-05] MEDS: DULOXETINE 30 MG CAP DR PO (08:43)
[2018-02-05] MEDS: APIXABAN 5 MG TABLET PO ×2 (08:43→20:46)
[2018-02-05] MEDS: BENAZEPRIL 10 MG TAB PO ×2 (08:44→20:46)
[2018-02-05] MEDS: FERROUS SULFATE (EC) 325 MG TAB PO (08:44)
[2018-02-05] MEDS: SOD CHLORIDE 0.45% 1,000 ML IV (17:20)
[2018-02-05] MEDS: INSULIN GLARGINE [LANtus] 3 ML PEN SC (20:47)
[2018-02-06] MEDS: ACCU-CHEK XX (02:00)
[2018-02-06] MEDS: PANTOPRAZOLE 40 MG INJ IV (06:14)
[2018-02-06] MEDS: INSULIN ASPART [NOVOLOG] 3 ML PEN SC ×4 (08:00→21:00)
[2018-02-06] MEDS: SALMETEROL/FLUTICASONE 250/50 INHA INH ×2 (08:12→21:00)
[2018-02-06] MEDS: DULOXETINE 30 MG CAP DR PO (08:13)
[2018-02-06] MEDS: TIOTROPIUM 18 MCG CAPSULE INHA DEV INH (08:13)
[2018-02-06] MEDS: APIXABAN 5 MG TABLET PO ×2 (08:13→21:00)
[2018-02-06] MEDS: BENAZEPRIL 10 MG TAB PO (08:14)
[2018-02-06] MEDS: FERROUS SULFATE (EC) 325 MG TAB PO (08:14)
[2018-02-06] MEDS: AMLODIPINE 10 MG TAB PO (08:14)
[2018-02-06 08:48] LABS: ADD MAN DIFF? NO
[2018-02-06 08:53] LABS: WHITE BLOOD COUNT 4.3 10^3/ul (4.8-10.8)
[2018-02-06 08:53] LABS: BASOPHILS % 0.7 % (0.0-2.0); EOSINOPHILS # 0.3 10^3/ul (0.0-0.5); EOSINOPHILS % 7.1 % (0.0-7.0); HEMATOCRIT 33.8 % (42.0-52.0); HEMOGLOBIN 10.6 g/dl (14.0-18.0); LYMPHOCYTES % 24.2 % (15.0-51.0); MEAN CORPUSCULAR HGB CONC 31.4 g/dl (32.0-37.0); MEAN CORPUSCULAR VOLUME 86.2 fl (82.0-101.0); MEAN PLATELET VOLUME 10.5 fl (7.4-10.4); MONOCYTE # 0.5 10^3/ul (0.3-0.9); MONOCYTES % 11.5 % (0.0-11.0); NEUTROPHIL # 2.4 10^3/ul (1.6-7.5); NEUTROPHILS % 55.8 % (39.0-77.0); PLATELET COUNT 198 10^3/UL (140-415); RED BLOOD COUNT 3.92 10^6/ul (4.70-6.10); RED CELL DISTRIBUTION WIDTH 14.9 % (11.5-14.5)
[2018-02-06 09:18] LABS: ANION GAP 7 (8-16); BLOOD UREA NITROGEN 15 mg/dl (7-20); CALCIUM 8.2 mg/dl (8.4-10.2); CARBON DIOXIDE 31 mmol/L (21-31); CHLORIDE 97 mmol/L (97-110); CREATININE 0.66 mg/dl (0.61-1.24); POTASSIUM 3.9 mmol/L (3.5-5.1); SODIUM 131 mmol/L (135-144)
[2018-02-06 09:26] LABS: GLUCOSE 506 mg/dl (70-220)
[2018-02-06] MEDS: SOD CHLORIDE 0.45% 1,000 ML IV ×2 (10:04→12:52)
[2018-02-06 12:59] LABS: GLUCOSE 152 mg/dl (70-220)
[2018-02-06] MEDS: HYDROCODONE/APAP (5/325) TAB PO (13:33)
[2018-02-06] MEDS: hydrALAzine 20 MG INJ IV (13:33)
[2018-02-06] MEDS: BENAZEPRIL 20 MG TAB PO (21:00)
[2018-02-06] MEDS: INSULIN GLARGINE [LANtus] 3 ML PEN SC (21:03)
[2018-02-06] MEDS: HYDROmorphONE 0.5 MG/0.5 ML SYG IV (23:41)
[2018-02-07] MEDS: ACCU-CHEK XX (02:00)
[2018-02-07] MEDS: HYDROmorphONE 0.5 MG/0.5 ML SYG IV ×2 (04:13→10:09)
[2018-02-07] MEDS: PANTOPRAZOLE 40 MG INJ IV (04:53)
[2018-02-07] MEDS: ALPRAZOLAM 0.25 MG TAB PO (07:01)
[2018-02-07] MEDS: INSULIN ASPART [NOVOLOG] 3 ML PEN SC ×3 (08:00→17:24)
[2018-02-07] MEDS: FERROUS SULFATE (EC) 325 MG TAB PO (08:27)
[2018-02-07] MEDS: BENAZEPRIL 20 MG TAB PO (08:27)
[2018-02-07] MEDS: APIXABAN 5 MG TABLET PO (08:28)
[2018-02-07] MEDS: DULOXETINE 30 MG CAP DR PO (08:28)
[2018-02-07] MEDS: AMLODIPINE 10 MG TAB PO (08:28)
[2018-02-07] MEDS: SOD CHLORIDE 0.45% 1,000 ML IV ×2 (08:29→09:30)
[2018-02-07] MEDS: TIOTROPIUM 18 MCG CAPSULE INHA DEV INH (08:30)
[2018-02-07] MEDS: SALMETEROL/FLUTICASONE 250/50 INHA INH (08:30)
[2018-02-07] MEDS: NITROGLYCERIN (SL) 0.4 MG TAB SL ×2 (12:23→12:31)
== END 2018-02-07 19:40 | DRG 313 ==
LOC: E/R 10:58 → MS4 14:30
DX: R07.89 Other chest pain (principal); L89.153 Pressure ulcer of sacral region, stage 3; I48.92 Unspecified atrial flutter; D68.69 Other thrombophilia; E87.1 Hypo-osmolality and hyponatremia; I25.10 Atherosclerotic heart disease of native coronary artery without angina pectoris; Z95.1 Presence of aortocoronary bypass graft; I25.5 Ischemic cardiomyopathy; E11.51 Type 2 diabetes mellitus with diabetic peripheral angiopathy without gangrene; Z89.512 Acquired absence of left leg below knee; Z89.511 Acquired absence of right leg below knee; E78.5 Hyperlipidemia, unspecified; Z93.3 Colostomy status; Z95.3 Presence of xenogenic heart valve; D64.9 Anemia, unspecified; R79.89 Other specified abnormal findings of blood chemistry; R00.1 Bradycardia, unspecified; Z87.440 Personal history of urinary (tract) infections; J44.9 Chronic obstructive pulmonary disease, unspecified
CPT/HCPCS: 36415; 71045; 80048; 80053; 82947; 82962; 83735; 84484; 85025; 87081; 93005; 93306; 96374; 99285-25

== ENCOUNTER 2018-02-08 10:48 | Inpatient (IN) | payer MEDICARE, MEDICAID ==
[2018-02-08] MEDS ORDERED: ACETAMINOPHEN 325 MG TAB PO ×2 (11:00→15:30)
[2018-02-08] MEDS ORDERED: NITROGLYCERIN (SL) 0.4 MG TAB SL (11:00)
[2018-02-08] MEDS ORDERED: ONDANSETRON 4 MG INJ IV ×2 (11:00→15:30)
[2018-02-08] MEDS: DILTIAZEM 50 MG INJ IV ×2 (11:14→17:19)
[2018-02-08] MEDS: NITROGLYCERIN 2% 1 GM OINT PKT TD (11:14)
[2018-02-08 11:21] LABS: ADD MAN DIFF? NO
[2018-02-08 11:24] LABS: BASOPHILS % 0.6 % (0.0-2.0); EOSINOPHILS # 0.3 10^3/ul (0.0-0.5); EOSINOPHILS % 3.9 % (0.0-7.0); HEMATOCRIT 36.6 % (42.0-52.0); HEMOGLOBIN 11.7 g/dl (14.0-18.0); LYMPHOCYTES # 1.5 10^3/ul (0.8-2.9); LYMPHOCYTES % 22.4 % (15.0-51.0); MEAN CORPUSCULAR VOLUME 84.5 fl (82.0-101.0); MEAN PLATELET VOLUME 10.4 fl (7.4-10.4); MONOCYTE # 0.7 10^3/ul (0.3-0.9); MONOCYTES % 10.6 % (0.0-11.0); PLATELET COUNT 199 10^3/UL (140-415); RED BLOOD COUNT 4.33 10^6/ul (4.70-6.10); RED CELL DISTRIBUTION WIDTH 15.1 % (11.5-14.5)
[2018-02-08 11:24] LABS: WHITE BLOOD COUNT 6.5 10^3/ul (4.8-10.8)
[2018-02-08] MEDS: LORAZEPAM 1 MG TAB PO (11:48)
[2018-02-08 11:49] LABS: ANION GAP 13 (8-16); BLOOD UREA NITROGEN 20 mg/dl (7-20); CALCIUM 9.3 mg/dl (8.4-10.2); CARBON DIOXIDE 29 mmol/L (21-31); CHLORIDE 104 mmol/L (97-110); CREATININE 0.84 mg/dl (0.61-1.24); GLUCOSE 257 mg/dl (70-220); POTASSIUM 4.5 mmol/L (3.5-5.1); SODIUM 141 mmol/L (135-144)
[2018-02-08 12:01] LABS: TROPONIN-I < 0.012 ng/ml (0.00-0.12)
[2018-02-08] MEDS: ALTEPLASE (CATHFLO) 2 MG INJ CATHETER (12:27)
[2018-02-08] MEDS: INSULIN LISPRO 100 UNIT/ML VIAL SC (12:46)
[2018-02-08] MEDS: AZTREONAM 1 GM/NS (PMX) 50 ML IVPB (14:25)
[2018-02-08] MEDS: VANCOMYCIN 1 GM (PMX) 250 ML IVPB (15:14)
[2018-02-08] MEDS ORDERED: HYDROCODONE/APAP (5/325) TAB PO (15:30)
[2018-02-08] MEDS ORDERED: DEXTROSE 50% 50 ML SYRINGE IV ×2 (15:30)
[2018-02-08] MEDS ORDERED: GLUCOSE GEL 15 GRAM TUBE PO ×2 (15:30)
[2018-02-08] MEDS ORDERED: GLUCOSE GEL 15 GRAM TUBE BUCCAL (15:30)
[2018-02-08] MEDS ORDERED: GLUCAGON 1 MG INJ IM (15:30)
[2018-02-08] MEDS ORDERED: NACL 0.9% 3 ML SYG IV ×2 (15:30)
[2018-02-08 16:02] LABS: LACTIC ACID 1.5 mmol/L (0.5-2.0)
[2018-02-08] MEDS: NITROGLYCERIN (SL) 0.4 MG TAB SL ×2 (17:10→17:15)
[2018-02-08] MEDS ORDERED: METOPROLOL 5 MG INJ IV (18:30)
[2018-02-08] MEDS: HYDROmorphONE 0.5 MG/0.5 ML SYG IV (19:16)
[2018-02-08 20:02] LABS: LACTIC ACID 1.1 mmol/L (0.5-2.0)
[2018-02-08 20:05] LABS: CREATINE KINASE 25 IU/L (23-200)
[2018-02-08 20:14] LABS: CK INDEX 5.8
[2018-02-08 20:17] LABS: CK-MB 1.44 ng/ml (0.0-2.4); TROPONIN-I < 0.012 ng/ml (0.00-0.12)
[2018-02-08] MEDS: INSULIN ASPART [NOVOLOG] 3 ML PEN SC ×2 (21:00→23:52)
[2018-02-08] MEDS: ATENOLOL 25 MG TAB PO (21:00)
[2018-02-08] MEDS: BENAZEPRIL 20 MG TAB PO (21:00)
[2018-02-08 23:05] LABS: CREATINE KINASE 22 IU/L (23-200)
[2018-02-08 23:18] LABS: CK INDEX 6.4
[2018-02-08 23:21] LABS: CK-MB 1.41 ng/ml (0.0-2.4); TROPONIN-I < 0.012 ng/ml (0.00-0.12)
[2018-02-08] MEDS: SALMETEROL/FLUTICASONE 250/50 INHA INH (23:46)
[2018-02-08] MEDS: INSULIN GLARGINE [LANtus] 3 ML PEN SC (23:53)
[2018-02-08] MEDS: DIGOXIN 500 MCG INJ IV (23:59)
[2018-02-09] MEDS: HYDROmorphONE 0.5 MG/0.5 ML SYG IV ×5 (00:55→20:42)
[2018-02-09] MEDS: DIGOXIN 500 MCG INJ IV (01:30)
[2018-02-09] MEDS: ACCU-CHEK XX (02:00)
[2018-02-09] MEDS: PANTOPRAZOLE (EC) 40 MG TAB PO (06:15)
[2018-02-09] MEDS: INSULIN ASPART [NOVOLOG] 3 ML PEN SC ×4 (07:55→20:35)
[2018-02-09 08:43] LABS: ADD MAN DIFF? NO
[2018-02-09 08:51] LABS: WHITE BLOOD COUNT 5.4 10^3/ul (4.8-10.8)
[2018-02-09 08:51] LABS: BASOPHILS % 0.7 % (0.0-2.0); EOSINOPHILS # 0.2 10^3/ul (0.0-0.5); EOSINOPHILS % 3.9 % (0.0-7.0); HEMATOCRIT 34.7 % (42.0-52.0); LYMPHOCYTES # 1.3 10^3/ul (0.8-2.9); LYMPHOCYTES % 23.3 % (15.0-51.0); MEAN CORPUSCULAR HEMOGLOBIN 26.8 pg (29.0-33.0); MEAN CORPUSCULAR HGB CONC 31.7 g/dl (32.0-37.0); MEAN CORPUSCULAR VOLUME 84.6 fl (82.0-101.0); MEAN PLATELET VOLUME 10.5 fl (7.4-10.4); MONOCYTE # 0.7 10^3/ul (0.3-0.9); MONOCYTES % 12.7 % (0.0-11.0); NEUTROPHIL # 3.2 10^3/ul (1.6-7.5); NEUTROPHILS % 58.8 % (39.0-77.0); PLATELET COUNT 207 10^3/UL (140-415); RED CELL DISTRIBUTION WIDTH 15.2 % (11.5-14.5)
[2018-02-09] MEDS: SALMETEROL/FLUTICASONE 250/50 INHA INH ×3 (08:57→20:36)
[2018-02-09] MEDS: TIOTROPIUM 18 MCG CAPSULE INHA DEV INH ×2 (08:58→09:00)
[2018-02-09] MEDS: BENAZEPRIL 20 MG TAB PO ×2 (08:59→20:30)
[2018-02-09] MEDS: FUROSEMIDE 20 MG INJ IV (08:59)
[2018-02-09] MEDS: FERROUS SULFATE (EC) 325 MG TAB PO (09:00)
[2018-02-09] MEDS: COLLAGENASE 5 GM (UD JAR) TOP (09:00)
[2018-02-09] MEDS: DULOXETINE 30 MG CAP DR PO (09:00)
[2018-02-09] MEDS: AMLODIPINE 10 MG TAB PO (09:00)
[2018-02-09] MEDS: ATENOLOL 25 MG TAB PO ×2 (09:00→20:30)
[2018-02-09 09:23] LABS: ANION GAP 13 (8-16); BLOOD UREA NITROGEN 26 mg/dl (7-20); CALCIUM 8.8 mg/dl (8.4-10.2); CARBON DIOXIDE 29 mmol/L (21-31); CHLORIDE 104 mmol/L (97-110); CREATININE 0.87 mg/dl (0.61-1.24); GLUCOSE 78 mg/dl (70-220); POTASSIUM 4.2 mmol/L (3.5-5.1); SODIUM 142 mmol/L (135-144)
[2018-02-09] MEDS ORDERED: VANCOMYCIN IV PER PHARMACY XX (14:30)
[2018-02-09] MEDS: CEFEPIME 1GM/50 ML (PMX) 50 ML IVPB ×2 (15:10→23:38)
[2018-02-09] MEDS: VANCOMYCIN 1.25 GM in SOD CHLORIDE 0.9% 250 ML IVPB (16:02)
[2018-02-09] MEDS: INSULIN GLARGINE [LANtus] 3 ML PEN SC (20:35)
[2018-02-10] MEDS: HYDROmorphONE 0.5 MG/0.5 ML SYG IV ×6 (00:36→23:08)
[2018-02-10] MEDS: ACCU-CHEK XX (02:00)
[2018-02-10] MEDS ORDERED: VANCOMYCIN 750 MG in DEXTROSE 5% 150 ML IVPB (05:30)
[2018-02-10] MEDS: PANTOPRAZOLE (EC) 40 MG TAB PO (06:17)
[2018-02-10 07:54] LABS: ADD MAN DIFF? NO
[2018-02-10] MEDS: INSULIN ASPART [NOVOLOG] 3 ML PEN SC ×4 (07:55→21:22)
[2018-02-10 07:57] LABS: BASOPHILS % 0.7 % (0.0-2.0); EOSINOPHILS # 0.3 10^3/ul (0.0-0.5); EOSINOPHILS % 5.8 % (0.0-7.0); HEMATOCRIT 34.8 % (42.0-52.0); HEMOGLOBIN 10.8 g/dl (14.0-18.0); LYMPHOCYTES % 21.7 % (15.0-51.0); MEAN CORPUSCULAR HEMOGLOBIN 26.9 pg (29.0-33.0); MEAN CORPUSCULAR VOLUME 86.6 fl (82.0-101.0); MEAN PLATELET VOLUME 10.9 fl (7.4-10.4); MONOCYTE # 0.6 10^3/ul (0.3-0.9); MONOCYTES % 13.3 % (0.0-11.0); NEUTROPHIL # 2.6 10^3/ul (1.6-7.5); NEUTROPHILS % 58.1 % (39.0-77.0); PLATELET COUNT 169 10^3/UL (140-415); RED BLOOD COUNT 4.02 10^6/ul (4.70-6.10); RED CELL DISTRIBUTION WIDTH 15.1 % (11.5-14.5)
[2018-02-10 07:57] LABS: WHITE BLOOD COUNT 4.5 10^3/ul (4.8-10.8)
[2018-02-10] MEDS: COLLAGENASE 5 GM (UD JAR) TOP (08:18)
[2018-02-10] MEDS: BENAZEPRIL 20 MG TAB PO ×2 (08:19→21:10)
[2018-02-10] MEDS: FERROUS SULFATE (EC) 325 MG TAB PO (08:19)
[2018-02-10] MEDS: DULOXETINE 30 MG CAP DR PO (08:19)
[2018-02-10] MEDS: ATENOLOL 25 MG TAB PO ×2 (08:19→21:11)
[2018-02-10] MEDS: AMLODIPINE 10 MG TAB PO (08:19)
[2018-02-10] MEDS: CEFEPIME 1GM/50 ML (PMX) 50 ML IVPB ×2 (08:20→21:11)
[2018-02-10] MEDS: FUROSEMIDE 20 MG INJ IV (08:20)
[2018-02-10] MEDS: SALMETEROL/FLUTICASONE 250/50 INHA INH ×3 (08:23→21:11)
[2018-02-10] MEDS: TIOTROPIUM 18 MCG CAPSULE INHA DEV INH (08:23)
[2018-02-10 08:42] LABS: ALANINE AMINOTRANSFERASE 29 IU/L (13-69); ALBUMIN 3.1 g/dl (3.3-4.9); ALBUMIN/GLOBULIN RATIO 0.73; ALKALINE PHOSPHATASE 232 IU/L (42-121); ANION GAP 11 (8-16); ASPARTATE AMINO TRANSFERASE 37 IU/L (15-46); BILIRUBIN,INDIRECT 0.3 mg/dl (0-1.1); BILIRUBIN,TOTAL 0.3 mg/dl (0.2-1.3); BLOOD UREA NITROGEN 29 mg/dl (7-20); CALCIUM 8.8 mg/dl (8.4-10.2); CARBON DIOXIDE 31 mmol/L (21-31); CHLORIDE 107 mmol/L (97-110); CREATININE 0.92 mg/dl (0.61-1.24); GLUCOSE 146 mg/dl (70-220); POTASSIUM 4.8 mmol/L (3.5-5.1); SODIUM 144 mmol/L (135-144); TOTAL PROTEIN 7.3 g/dl (6.1-8.1)
[2018-02-10] MEDS: VANCOMYCIN 750 MG in DEXTROSE 5% 150 ML IVPB (15:41)
[2018-02-10] MEDS: INSULIN GLARGINE [LANtus] 3 ML PEN SC (21:21)
[2018-02-11] MEDS: ACCU-CHEK XX (01:50)
[2018-02-11] MEDS: HYDROmorphONE 0.5 MG/0.5 ML SYG IV ×5 (06:01→22:22)
[2018-02-11 06:48] LABS: ADD MAN DIFF? NO
[2018-02-11 06:55] LABS: BASOPHILS % 0.6 % (0.0-2.0); EOSINOPHILS # 0.3 10^3/ul (0.0-0.5); EOSINOPHILS % 6.1 % (0.0-7.0); HEMATOCRIT 34.6 % (42.0-52.0); HEMOGLOBIN 11.1 g/dl (14.0-18.0); LYMPHOCYTES # 1.2 10^3/ul (0.8-2.9); LYMPHOCYTES % 24.7 % (15.0-51.0); MEAN CORPUSCULAR HEMOGLOBIN 27.1 pg (29.0-33.0); MEAN CORPUSCULAR HGB CONC 32.1 g/dl (32.0-37.0); MEAN CORPUSCULAR VOLUME 84.4 fl (82.0-101.0); MONOCYTE # 0.6 10^3/ul (0.3-0.9); MONOCYTES % 12.2 % (0.0-11.0); NEUTROPHIL # 2.7 10^3/ul (1.6-7.5); NEUTROPHILS % 55.6 % (39.0-77.0); PLATELET COUNT 174 10^3/UL (140-415); RED CELL DISTRIBUTION WIDTH 14.5 % (11.5-14.5)
[2018-02-11 06:55] LABS: WHITE BLOOD COUNT 4.9 10^3/ul (4.8-10.8)
[2018-02-11 07:17] LABS: ANION GAP 12 (8-16); BLOOD UREA NITROGEN 29 mg/dl (7-20); CALCIUM 8.8 mg/dl (8.4-10.2); CARBON DIOXIDE 30 mmol/L (21-31); CHLORIDE 104 mmol/L (97-110); CREATININE 0.78 mg/dl (0.61-1.24); GLUCOSE 124 mg/dl (70-220); POTASSIUM 4.2 mmol/L (3.5-5.1); SODIUM 142 mmol/L (135-144)
[2018-02-11] MEDS: PANTOPRAZOLE (EC) 40 MG TAB PO (08:01)
[2018-02-11] MEDS: DULOXETINE 30 MG CAP DR PO (08:02)
[2018-02-11] MEDS: FERROUS SULFATE (EC) 325 MG TAB PO (08:02)
[2018-02-11] MEDS: FUROSEMIDE 20 MG INJ IV (08:03)
[2018-02-11] MEDS: AMLODIPINE 10 MG TAB PO (08:03)
[2018-02-11] MEDS: BENAZEPRIL 20 MG TAB PO ×2 (08:03→20:54)
[2018-02-11] MEDS: ATENOLOL 25 MG TAB PO ×2 (08:03→20:54)
[2018-02-11] MEDS: CEFEPIME 1GM/50 ML (PMX) 50 ML IVPB ×2 (08:03→20:53)
[2018-02-11] MEDS: SALMETEROL/FLUTICASONE 250/50 INHA INH ×2 (08:04→20:53)
[2018-02-11] MEDS: TIOTROPIUM 18 MCG CAPSULE INHA DEV INH (08:07)
[2018-02-11] MEDS: COLLAGENASE 5 GM (UD JAR) TOP (08:08)
[2018-02-11] MEDS: INSULIN ASPART [NOVOLOG] 3 ML PEN SC ×5 (08:17→21:04)
[2018-02-11] MEDS: VANCOMYCIN 750 MG in DEXTROSE 5% 150 ML IVPB (15:50)
[2018-02-11] MEDS: INSULIN GLARGINE [LANtus] 3 ML PEN SC (20:59)
[2018-02-11 21:23] LABS: GLUCOSE 438 mg/dl (70-220)
[2018-02-12] MEDS: ACCU-CHEK XX (02:00)
[2018-02-12] MEDS: HYDROmorphONE 0.5 MG/0.5 ML SYG IV ×6 (02:14→21:46)
[2018-02-12] MEDS: INSULIN ASPART [NOVOLOG] 3 ML PEN SC ×5 (07:55→20:19)
[2018-02-12] MEDS: TIOTROPIUM 18 MCG CAPSULE INHA DEV INH (08:21)
[2018-02-12] MEDS: COLLAGENASE 5 GM (UD JAR) TOP (08:22)
[2018-02-12] MEDS: DULOXETINE 30 MG CAP DR PO (08:22)
[2018-02-12] MEDS: PANTOPRAZOLE (EC) 40 MG TAB PO (08:22)
[2018-02-12] MEDS: FERROUS SULFATE (EC) 325 MG TAB PO (08:22)
[2018-02-12] MEDS: CEFEPIME 1GM/50 ML (PMX) 50 ML IVPB ×2 (08:23→20:10)
[2018-02-12] MEDS: BENAZEPRIL 20 MG TAB PO ×2 (08:23→20:11)
[2018-02-12] MEDS: AMLODIPINE 10 MG TAB PO (08:23)
[2018-02-12] MEDS: ATENOLOL 25 MG TAB PO ×2 (08:23→20:12)
[2018-02-12] MEDS: SALMETEROL/FLUTICASONE 250/50 INHA INH ×2 (08:24→20:10)
[2018-02-12] MEDS: FUROSEMIDE 20 MG INJ IV (08:24)
[2018-02-12] MEDS: ALBUTEROL 0.083% (NEB) 2.5 MG/3 ML AMP HHN (16:49)
[2018-02-12] MEDS: INSULIN GLARGINE [LANtus] 3 ML PEN SC (20:16)
[2018-02-13] MEDS: HYDROmorphONE 0.5 MG/0.5 ML SYG IV ×5 (01:57→20:18)
[2018-02-13] MEDS: ACCU-CHEK XX (01:58)
[2018-02-13] MEDS: PANTOPRAZOLE (EC) 40 MG TAB PO (05:41)
[2018-02-13 06:59] LABS: ADD MAN DIFF? NO
[2018-02-13 07:00] LABS: WHITE BLOOD COUNT 5.2 10^3/ul (4.8-10.8)
[2018-02-13 07:00] LABS: BASOPHIL # 0.1 10^3/ul (0.0-0.1); EOSINOPHILS # 0.3 10^3/ul (0.0-0.5); EOSINOPHILS % 6.4 % (0.0-7.0); HEMATOCRIT 33.2 % (42.0-52.0); HEMOGLOBIN 10.7 g/dl (14.0-18.0); LYMPHOCYTES # 1.4 10^3/ul (0.8-2.9); LYMPHOCYTES % 27.8 % (15.0-51.0); MEAN CORPUSCULAR HEMOGLOBIN 27.4 pg (29.0-33.0); MEAN CORPUSCULAR HGB CONC 32.2 g/dl (32.0-37.0); MEAN CORPUSCULAR VOLUME 84.9 fl (82.0-101.0); MEAN PLATELET VOLUME 10.9 fl (7.4-10.4); MONOCYTE # 0.6 10^3/ul (0.3-0.9); MONOCYTES % 11.8 % (0.0-11.0); NEUTROPHIL # 2.7 10^3/ul (1.6-7.5); NEUTROPHILS % 52.2 % (39.0-77.0); PLATELET COUNT 159 10^3/UL (140-415); RED BLOOD COUNT 3.91 10^6/ul (4.70-6.10)
[2018-02-13 07:26] LABS: ANION GAP 14 (8-16); BLOOD UREA NITROGEN 41 mg/dl (7-20); CARBON DIOXIDE 28 mmol/L (21-31); CHLORIDE 105 mmol/L (97-110); CREATININE 0.87 mg/dl (0.61-1.24); GLUCOSE 102 mg/dl (70-220); POTASSIUM 4.3 mmol/L (3.5-5.1); SODIUM 143 mmol/L (135-144)
[2018-02-13] MEDS: INSULIN ASPART [NOVOLOG] 3 ML PEN SC ×4 (07:55→20:26)
[2018-02-13] MEDS: SALMETEROL/FLUTICASONE 250/50 INHA INH ×2 (09:00→20:20)
[2018-02-13] MEDS: COLLAGENASE 5 GM (UD JAR) TOP (09:02)
[2018-02-13] MEDS: TIOTROPIUM 18 MCG CAPSULE INHA DEV INH (09:09)
[2018-02-13] MEDS: ATENOLOL 25 MG TAB PO ×2 (09:10→20:22)
[2018-02-13] MEDS: FERROUS SULFATE (EC) 325 MG TAB PO (09:11)
[2018-02-13] MEDS: BENAZEPRIL 20 MG TAB PO ×2 (09:11→20:19)
[2018-02-13] MEDS: AMLODIPINE 10 MG TAB PO (09:11)
[2018-02-13] MEDS: DULOXETINE 30 MG CAP DR PO (09:11)
[2018-02-13] MEDS: CEFEPIME 1GM/50 ML (PMX) 50 ML IVPB ×2 (09:12→20:20)
[2018-02-13] MEDS: FUROSEMIDE 20 MG INJ IV (09:14)
[2018-02-13] MEDS: APIXABAN 5 MG TABLET PO (20:18)
[2018-02-13] MEDS: ALPRAZOLAM 0.25 MG TAB PO (20:18)
[2018-02-13] MEDS: AMIODARONE 200 MG TAB PO (20:19)
[2018-02-13] MEDS: INSULIN GLARGINE [LANtus] 3 ML PEN SC (20:25)
[2018-02-14] MEDS: ACCU-CHEK XX (02:00)
[2018-02-14 05:38] LABS: ADD MAN DIFF? NO
[2018-02-14 05:44] LABS: WHITE BLOOD COUNT 3.9 10^3/ul (4.8-10.8)
[2018-02-14 05:44] LABS: EOSINOPHILS # 0.3 10^3/ul (0.0-0.5); EOSINOPHILS % 7.8 % (0.0-7.0); HEMATOCRIT 33.9 % (42.0-52.0); HEMOGLOBIN 10.8 g/dl (14.0-18.0); LYMPHOCYTES % 26.9 % (15.0-51.0); MEAN CORPUSCULAR HGB CONC 31.9 g/dl (32.0-37.0); MEAN CORPUSCULAR VOLUME 84.8 fl (82.0-101.0); MEAN PLATELET VOLUME 11.2 fl (7.4-10.4); MONOCYTE # 0.5 10^3/ul (0.3-0.9); MONOCYTES % 11.9 % (0.0-11.0); NEUTROPHILS % 51.6 % (39.0-77.0); PLATELET COUNT 145 10^3/UL (140-415); RED CELL DISTRIBUTION WIDTH 14.6 % (11.5-14.5)
[2018-02-14] MEDS: HYDROmorphONE 0.5 MG/0.5 ML SYG IV ×5 (06:04→22:21)
[2018-02-14 06:12] LABS: ANION GAP 14 (8-16); BLOOD UREA NITROGEN 33 mg/dl (7-20); CALCIUM 8.9 mg/dl (8.4-10.2); CARBON DIOXIDE 30 mmol/L (21-31); CHLORIDE 105 mmol/L (97-110); CREATININE 0.83 mg/dl (0.61-1.24); GLUCOSE 154 mg/dl (70-220); POTASSIUM 4.1 mmol/L (3.5-5.1); SODIUM 145 mmol/L (135-144)
[2018-02-14 06:17] LABS: VANCOMYCIN,RANDOM 23.5 ug/ml
[2018-02-14] MEDS: PANTOPRAZOLE (EC) 40 MG TAB PO (06:28)
[2018-02-14] MEDS: INSULIN ASPART [NOVOLOG] 3 ML PEN SC ×4 (07:55→21:16)
[2018-02-14] MEDS: ATENOLOL 25 MG TAB PO ×2 (09:00→21:00)
[2018-02-14] MEDS: AMLODIPINE 10 MG TAB PO (09:34)
[2018-02-14] MEDS: APIXABAN 5 MG TABLET PO ×2 (09:35→21:04)
[2018-02-14] MEDS: BENAZEPRIL 20 MG TAB PO ×2 (09:36→21:11)
[2018-02-14] MEDS: FERROUS SULFATE (EC) 325 MG TAB PO (09:37)
[2018-02-14] MEDS: DULOXETINE 30 MG CAP DR PO (09:38)
[2018-02-14] MEDS: AMIODARONE 200 MG TAB PO ×2 (09:38→21:00)
[2018-02-14] MEDS: FUROSEMIDE 20 MG INJ IV (09:40)
[2018-02-14] MEDS: CEFEPIME 1GM/50 ML (PMX) 50 ML IVPB ×2 (09:40→21:04)
[2018-02-14] MEDS: SALMETEROL/FLUTICASONE 250/50 INHA INH ×2 (09:41→21:00)
[2018-02-14] MEDS: TIOTROPIUM 18 MCG CAPSULE INHA DEV INH (11:33)
[2018-02-14] MEDS: COLLAGENASE 5 GM (UD JAR) TOP (17:45)
[2018-02-14] MEDS: INSULIN GLARGINE [LANtus] 3 ML PEN SC (21:18)
[2018-02-15] MEDS: ACCU-CHEK XX (02:00)
[2018-02-15] MEDS: HYDROmorphONE 0.5 MG/0.5 ML SYG IV ×5 (02:18→23:13)
[2018-02-15] MEDS: PANTOPRAZOLE (EC) 40 MG TAB PO (05:12)
[2018-02-15] MEDS: INSULIN ASPART [NOVOLOG] 3 ML PEN SC ×8 (07:55→22:20)
[2018-02-15] MEDS: AMIODARONE 200 MG TAB PO (09:00)
[2018-02-15] MEDS: ATENOLOL 25 MG TAB PO ×2 (09:00→21:00)
[2018-02-15 09:19] LABS: ADD MAN DIFF? NO
[2018-02-15 09:21] LABS: BASOPHILS % 0.7 % (0.0-2.0); EOSINOPHILS # 0.3 10^3/ul (0.0-0.5); EOSINOPHILS % 5.9 % (0.0-7.0); MEAN CORPUSCULAR HEMOGLOBIN 27.3 pg (29.0-33.0); MEAN CORPUSCULAR HGB CONC 32.1 g/dl (32.0-37.0); MEAN CORPUSCULAR VOLUME 84.8 fl (82.0-101.0); MEAN PLATELET VOLUME 11.4 fl (7.4-10.4); MONOCYTE # 0.6 10^3/ul (0.3-0.9); MONOCYTES % 13.5 % (0.0-11.0); NEUTROPHIL # 2.3 10^3/ul (1.6-7.5); NEUTROPHILS % 55.4 % (39.0-77.0); PLATELET COUNT 127 10^3/UL (140-415); RED CELL DISTRIBUTION WIDTH 14.5 % (11.5-14.5)
[2018-02-15 09:21] LABS: WHITE BLOOD COUNT 4.2 10^3/ul (4.8-10.8)
[2018-02-15] MEDS: TIOTROPIUM 18 MCG CAPSULE INHA DEV INH (09:45)
[2018-02-15] MEDS: CEFEPIME 1GM/50 ML (PMX) 50 ML IVPB ×2 (09:45→22:09)
[2018-02-15] MEDS: BENAZEPRIL 20 MG TAB PO ×2 (09:45→22:16)
[2018-02-15] MEDS: FERROUS SULFATE (EC) 325 MG TAB PO (09:46)
[2018-02-15] MEDS: DULOXETINE 30 MG CAP DR PO (09:47)
[2018-02-15] MEDS: APIXABAN 5 MG TABLET PO ×2 (09:47→22:10)
[2018-02-15] MEDS: AMLODIPINE 10 MG TAB PO (09:48)
[2018-02-15] MEDS: FUROSEMIDE 20 MG INJ IV (09:48)
[2018-02-15] MEDS: COLLAGENASE 5 GM (UD JAR) TOP (09:48)
[2018-02-15] MEDS: SALMETEROL/FLUTICASONE 250/50 INHA INH ×2 (09:48→21:00)
[2018-02-15 10:04] LABS: ANION GAP 10 (8-16); BLOOD UREA NITROGEN 26 mg/dl (7-20); CALCIUM 7.1 mg/dl (8.4-10.2); CARBON DIOXIDE 24 mmol/L (21-31); CHLORIDE 112 mmol/L (97-110); CREATININE 0.66 mg/dl (0.61-1.24); GLUCOSE 105 mg/dl (70-220); POTASSIUM 3.3 mmol/L (3.5-5.1); SODIUM 143 mmol/L (135-144)
[2018-02-15] MEDS: POTASSIUM CHLORIDE 20 MEQ POWDER FOR ORAL SOLN PO (13:00)
[2018-02-15] MEDS ORDERED: POTASSIUM CHLORIDE (SR) 20 MEQ TAB PO (15:06)
[2018-02-15] MEDS: INSULIN GLARGINE [LANtus] 3 ML PEN SC (22:20)
[2018-02-16] MEDS: ACCU-CHEK XX (02:00)
[2018-02-16] MEDS: HYDROmorphONE 0.5 MG/0.5 ML SYG IV ×5 (04:55→21:32)
[2018-02-16] MEDS: PANTOPRAZOLE (EC) 40 MG TAB PO (04:55)
[2018-02-16 08:56] LABS: ADD MAN DIFF? NO
[2018-02-16 09:00] LABS: EOSINOPHILS # 0.3 10^3/ul (0.0-0.5); EOSINOPHILS % 6.8 % (0.0-7.0); HEMATOCRIT 32.7 % (42.0-52.0); HEMOGLOBIN 10.6 g/dl (14.0-18.0); LYMPHOCYTES # 1.2 10^3/ul (0.8-2.9); LYMPHOCYTES % 28.4 % (15.0-51.0); MEAN CORPUSCULAR HEMOGLOBIN 27.6 pg (29.0-33.0); MEAN CORPUSCULAR HGB CONC 32.4 g/dl (32.0-37.0); MEAN CORPUSCULAR VOLUME 85.2 fl (82.0-101.0); MEAN PLATELET VOLUME 11.2 fl (7.4-10.4); MONOCYTE # 0.5 10^3/ul (0.3-0.9); MONOCYTES % 12.7 % (0.0-11.0); NEUTROPHIL # 2.1 10^3/ul (1.6-7.5); NEUTROPHILS % 50.4 % (39.0-77.0); PLATELET COUNT 149 10^3/UL (140-415); RED BLOOD COUNT 3.84 10^6/ul (4.70-6.10); RED CELL DISTRIBUTION WIDTH 14.7 % (11.5-14.5)
[2018-02-16 09:00] LABS: WHITE BLOOD COUNT 4.1 10^3/ul (4.8-10.8)
[2018-02-16] MEDS: SALMETEROL/FLUTICASONE 250/50 INHA INH ×2 (09:00→21:00)
[2018-02-16] MEDS: ATENOLOL 25 MG TAB PO ×2 (09:00→21:24)
[2018-02-16] MEDS: DULOXETINE 30 MG CAP DR PO (09:15)
[2018-02-16] MEDS: TIOTROPIUM 18 MCG CAPSULE INHA DEV INH (09:15)
[2018-02-16] MEDS: CEFEPIME 1GM/50 ML (PMX) 50 ML IVPB (09:15)
[2018-02-16] MEDS: FUROSEMIDE 20 MG INJ IV (09:16)
[2018-02-16] MEDS: FERROUS SULFATE (EC) 325 MG TAB PO (09:18)
[2018-02-16] MEDS: AMIODARONE 200 MG TAB PO (09:18)
[2018-02-16] MEDS: AMLODIPINE 10 MG TAB PO (09:18)
[2018-02-16] MEDS: APIXABAN 5 MG TABLET PO ×2 (09:19→21:23)
[2018-02-16] MEDS: COLLAGENASE 5 GM (UD JAR) TOP (09:19)
[2018-02-16] MEDS: BENAZEPRIL 20 MG TAB PO ×2 (09:19→21:23)
[2018-02-16 09:34] LABS: ANION GAP 15 (8-16); BLOOD UREA NITROGEN 31 mg/dl (7-20); CALCIUM 8.6 mg/dl (8.4-10.2); CARBON DIOXIDE 28 mmol/L (21-31); CHLORIDE 106 mmol/L (97-110); CREATININE 0.79 mg/dl (0.61-1.24); GLUCOSE 186 mg/dl (70-220); SODIUM 145 mmol/L (135-144)
[2018-02-16] MEDS: INSULIN ASPART [NOVOLOG] 3 ML PEN SC ×7 (09:59→21:00)
[2018-02-16] MEDS ORDERED: INSULIN GLARGINE [LANtus] 3 ML PEN SC (20:00)
[2018-02-16] MEDS: INSULIN GLARGINE [LANtus] 3 ML PEN SC (21:27)
[2018-02-17] MEDS: HYDROmorphONE 0.5 MG/0.5 ML SYG IV ×5 (01:30→18:17)
[2018-02-17] MEDS: ACCU-CHEK XX (02:00)
[2018-02-17 05:23] LABS: ADD MAN DIFF? NO
[2018-02-17 05:24] LABS: WHITE BLOOD COUNT 4.9 10^3/ul (4.8-10.8)
[2018-02-17 05:24] LABS: BASOPHILS % 0.8 % (0.0-2.0); EOSINOPHILS # 0.3 10^3/ul (0.0-0.5); EOSINOPHILS % 6.5 % (0.0-7.0); HEMATOCRIT 32.7 % (42.0-52.0); HEMOGLOBIN 10.4 g/dl (14.0-18.0); LYMPHOCYTES # 1.2 10^3/ul (0.8-2.9); LYMPHOCYTES % 25.4 % (15.0-51.0); MEAN CORPUSCULAR HEMOGLOBIN 26.9 pg (29.0-33.0); MEAN CORPUSCULAR HGB CONC 31.8 g/dl (32.0-37.0); MEAN CORPUSCULAR VOLUME 84.5 fl (82.0-101.0); MEAN PLATELET VOLUME 10.8 fl (7.4-10.4); MONOCYTE # 0.6 10^3/ul (0.3-0.9); MONOCYTES % 11.5 % (0.0-11.0); NEUTROPHIL # 2.7 10^3/ul (1.6-7.5); NEUTROPHILS % 55.2 % (39.0-77.0); PLATELET COUNT 148 10^3/UL (140-415); RED BLOOD COUNT 3.87 10^6/ul (4.70-6.10); RED CELL DISTRIBUTION WIDTH 14.6 % (11.5-14.5)
[2018-02-17] MEDS: PANTOPRAZOLE (EC) 40 MG TAB PO (05:33)
[2018-02-17 05:59] LABS: ANION GAP 12 (8-16); BLOOD UREA NITROGEN 35 mg/dl (7-20); CALCIUM 8.8 mg/dl (8.4-10.2); CARBON DIOXIDE 31 mmol/L (21-31); CHLORIDE 104 mmol/L (97-110); CREATININE 0.87 mg/dl (0.61-1.24); GLUCOSE 156 mg/dl (70-220); POTASSIUM 4.2 mmol/L (3.5-5.1); SODIUM 143 mmol/L (135-144)
[2018-02-17 06:54] LABS: VANCOMYCIN,RANDOM 14.1 ug/ml
[2018-02-17] MEDS: INSULIN ASPART [NOVOLOG] 3 ML PEN SC ×7 (07:55→21:00)
[2018-02-17] MEDS: ATENOLOL 25 MG TAB PO ×2 (09:00→21:00)
[2018-02-17] MEDS: SALMETEROL/FLUTICASONE 250/50 INHA INH ×2 (09:00→21:00)
[2018-02-17] MEDS: DULOXETINE 30 MG CAP DR PO (09:50)
[2018-02-17] MEDS: FERROUS SULFATE (EC) 325 MG TAB PO (09:50)
[2018-02-17] MEDS: TIOTROPIUM 18 MCG CAPSULE INHA DEV INH (09:51)
[2018-02-17] MEDS: AMLODIPINE 10 MG TAB PO (09:51)
[2018-02-17] MEDS: BENAZEPRIL 20 MG TAB PO ×2 (09:51→21:06)
[2018-02-17] MEDS: FUROSEMIDE 20 MG INJ IV (09:51)
[2018-02-17] MEDS: COLLAGENASE 5 GM (UD JAR) TOP (09:52)
[2018-02-17] MEDS: APIXABAN 5 MG TABLET PO ×2 (09:52→21:03)
[2018-02-17] MEDS: AMIODARONE 200 MG TAB PO (12:37)
[2018-02-17] MEDS: INSULIN GLARGINE [LANtus] 3 ML PEN SC (21:13)
[2018-02-18] MEDS: HYDROmorphONE 0.5 MG/0.5 ML SYG IV ×5 (02:23→21:56)
[2018-02-18] MEDS: ACCU-CHEK XX (02:27)
[2018-02-18 07:07] LABS: ADD MAN DIFF? NO
[2018-02-18 07:17] LABS: BASOPHILS % 0.8 % (0.0-2.0); EOSINOPHILS # 0.3 10^3/ul (0.0-0.5); EOSINOPHILS % 6.4 % (0.0-7.0); HEMATOCRIT 33.2 % (42.0-52.0); HEMOGLOBIN 10.4 g/dl (14.0-18.0); LYMPHOCYTES # 1.4 10^3/ul (0.8-2.9); LYMPHOCYTES % 27.8 % (15.0-51.0); MEAN CORPUSCULAR HEMOGLOBIN 26.7 pg (29.0-33.0); MEAN CORPUSCULAR HGB CONC 31.3 g/dl (32.0-37.0); MEAN CORPUSCULAR VOLUME 85.1 fl (82.0-101.0); MEAN PLATELET VOLUME 10.9 fl (7.4-10.4); MONOCYTE # 0.6 10^3/ul (0.3-0.9); MONOCYTES % 11.9 % (0.0-11.0); NEUTROPHIL # 2.5 10^3/ul (1.6-7.5); NEUTROPHILS % 52.3 % (39.0-77.0); PLATELET COUNT 152 10^3/UL (140-415); RED CELL DISTRIBUTION WIDTH 14.5 % (11.5-14.5)
[2018-02-18 07:17] LABS: WHITE BLOOD COUNT 4.9 10^3/ul (4.8-10.8)
[2018-02-18] MEDS: PANTOPRAZOLE (EC) 40 MG TAB PO (07:26)
[2018-02-18 07:39] LABS: ANION GAP 12 (8-16); BLOOD UREA NITROGEN 36 mg/dl (7-20); CALCIUM 9.1 mg/dl (8.4-10.2); CARBON DIOXIDE 33 mmol/L (21-31); CHLORIDE 103 mmol/L (97-110); CREATININE 1.02 mg/dl (0.61-1.24); GLUCOSE 193 mg/dl (70-220); POTASSIUM 4.1 mmol/L (3.5-5.1); SODIUM 144 mmol/L (135-144)
[2018-02-18] MEDS: FUROSEMIDE 20 MG INJ IV (08:42)
[2018-02-18] MEDS: DULOXETINE 30 MG CAP DR PO (08:42)
[2018-02-18] MEDS: APIXABAN 5 MG TABLET PO ×2 (08:42→21:00)
[2018-02-18] MEDS: BENAZEPRIL 20 MG TAB PO ×2 (08:42→21:00)
[2018-02-18] MEDS: TIOTROPIUM 18 MCG CAPSULE INHA DEV INH (08:42)
[2018-02-18] MEDS: AMLODIPINE 10 MG TAB PO (08:43)
[2018-02-18] MEDS: ATENOLOL 25 MG TAB PO ×2 (08:43→21:05)
[2018-02-18] MEDS: FERROUS SULFATE (EC) 325 MG TAB PO (08:43)
[2018-02-18] MEDS: AMIODARONE 200 MG TAB PO ×2 (08:43→16:23)
[2018-02-18] MEDS: SALMETEROL/FLUTICASONE 250/50 INHA INH ×3 (08:44→20:59)
[2018-02-18] MEDS: INSULIN ASPART [NOVOLOG] 3 ML PEN SC ×7 (08:45→21:06)
[2018-02-18] MEDS: COLLAGENASE 5 GM (UD JAR) TOP (08:48)
[2018-02-18] MEDS: INSULIN GLARGINE [LANtus] 3 ML PEN SC (21:06)
[2018-02-19] MEDS: HYDROmorphONE 0.5 MG/0.5 ML SYG IV ×5 (01:45→18:33)
[2018-02-19] MEDS: ACCU-CHEK XX (01:51)
[2018-02-19] MEDS: PANTOPRAZOLE (EC) 40 MG TAB PO (07:59)
[2018-02-19] MEDS: INSULIN ASPART [NOVOLOG] 3 ML PEN SC ×7 (08:04→21:00)
[2018-02-19] MEDS: DULOXETINE 30 MG CAP DR PO (08:47)
[2018-02-19] MEDS: APIXABAN 5 MG TABLET PO ×2 (08:48→21:13)
[2018-02-19] MEDS: FERROUS SULFATE (EC) 325 MG TAB PO (08:48)
[2018-02-19] MEDS: ATENOLOL 25 MG TAB PO ×2 (08:57→21:00)
[2018-02-19] MEDS: FUROSEMIDE 20 MG INJ IV (08:57)
[2018-02-19] MEDS: AMLODIPINE 10 MG TAB PO (08:58)
[2018-02-19] MEDS: AMIODARONE 200 MG TAB PO (08:58)
[2018-02-19] MEDS: BENAZEPRIL 20 MG TAB PO ×2 (08:58→21:14)
[2018-02-19] MEDS: SALMETEROL/FLUTICASONE 250/50 INHA INH ×2 (08:58→21:00)
[2018-02-19] MEDS: COLLAGENASE 5 GM (UD JAR) TOP (09:00)
[2018-02-19] MEDS: TIOTROPIUM 18 MCG CAPSULE INHA DEV INH (10:10)
[2018-02-19] MEDS: INSULIN GLARGINE [LANtus] 3 ML PEN SC (21:26)
[2018-02-20] MEDS: HYDROmorphONE 0.5 MG/0.5 ML SYG IV ×6 (00:48→23:18)
[2018-02-20] MEDS: ACCU-CHEK XX (01:00)
[2018-02-20 07:38] LABS: ADD MAN DIFF? NO
[2018-02-20] MEDS: PANTOPRAZOLE (EC) 40 MG TAB PO (07:41)
[2018-02-20] MEDS: INSULIN ASPART [NOVOLOG] 3 ML PEN SC ×7 (07:44→21:00)
[2018-02-20 07:48] LABS: WHITE BLOOD COUNT 5.8 10^3/ul (4.8-10.8)
[2018-02-20 07:48] LABS: BASOPHIL # 0.1 10^3/ul (0.0-0.1); BASOPHILS % 0.9 % (0.0-2.0); EOSINOPHILS # 0.4 10^3/ul (0.0-0.5); EOSINOPHILS % 6.6 % (0.0-7.0); HEMATOCRIT 35.6 % (42.0-52.0); HEMOGLOBIN 11.3 g/dl (14.0-18.0); LYMPHOCYTES # 1.9 10^3/ul (0.8-2.9); LYMPHOCYTES % 33.6 % (15.0-51.0); MEAN CORPUSCULAR HEMOGLOBIN 26.9 pg (29.0-33.0); MEAN CORPUSCULAR HGB CONC 31.7 g/dl (32.0-37.0); MEAN CORPUSCULAR VOLUME 84.8 fl (82.0-101.0); MEAN PLATELET VOLUME 11.1 fl (7.4-10.4); MONOCYTE # 0.7 10^3/ul (0.3-0.9); MONOCYTES % 12.7 % (0.0-11.0); NEUTROPHIL # 2.6 10^3/ul (1.6-7.5); NEUTROPHILS % 45.7 % (39.0-77.0); PLATELET COUNT 144 10^3/UL (140-415); RED CELL DISTRIBUTION WIDTH 14.4 % (11.5-14.5)
[2018-02-20 08:19] LABS: ANION GAP 9 (8-16); BLOOD UREA NITROGEN 46 mg/dl (7-20); CALCIUM 9.4 mg/dl (8.4-10.2); CARBON DIOXIDE 38 mmol/L (21-31); CHLORIDE 103 mmol/L (97-110); CREATININE 0.94 mg/dl (0.61-1.24); GLUCOSE 68 mg/dl (70-220); POTASSIUM 4.4 mmol/L (3.5-5.1); SODIUM 146 mmol/L (135-144)
[2018-02-20] MEDS: SALMETEROL/FLUTICASONE 250/50 INHA INH ×2 (09:00→21:00)
[2018-02-20] MEDS: ATENOLOL 25 MG TAB PO ×3 (09:00→21:00)
[2018-02-20] MEDS: TIOTROPIUM 18 MCG CAPSULE INHA DEV INH (09:17)
[2018-02-20] MEDS: FERROUS SULFATE (EC) 325 MG TAB PO (09:18)
[2018-02-20] MEDS: FUROSEMIDE 20 MG INJ IV (09:18)
[2018-02-20] MEDS: DULOXETINE 30 MG CAP DR PO (09:18)
[2018-02-20] MEDS: BENAZEPRIL 20 MG TAB PO ×2 (09:19→21:18)
[2018-02-20] MEDS: APIXABAN 5 MG TABLET PO ×2 (09:21→21:18)
[2018-02-20] MEDS: AMLODIPINE 10 MG TAB PO (09:21)
[2018-02-20] MEDS: AMIODARONE 200 MG TAB PO (09:21)
[2018-02-20] MEDS: COLLAGENASE 5 GM (UD JAR) TOP (10:42)
[2018-02-20] MEDS: INSULIN GLARGINE [LANtus] 3 ML PEN SC (22:28)
[2018-02-21] MEDS: ACCU-CHEK XX (02:46)
[2018-02-21] MEDS: HYDROmorphONE 0.5 MG/0.5 ML SYG IV ×5 (03:15→23:06)
[2018-02-21 06:53] LABS: WHITE BLOOD COUNT 4.8 10^3/ul (4.8-10.8)
[2018-02-21 06:53] LABS: ADD MAN DIFF? NO; BASOPHIL # 0.1 10^3/ul (0.0-0.1); EOSINOPHILS # 0.3 10^3/ul (0.0-0.5); HEMATOCRIT 32.7 % (42.0-52.0); HEMOGLOBIN 10.3 g/dl (14.0-18.0); LYMPHOCYTES # 1.2 10^3/ul (0.8-2.9); LYMPHOCYTES % 24.6 % (15.0-51.0); MEAN CORPUSCULAR HEMOGLOBIN 26.9 pg (29.0-33.0); MEAN CORPUSCULAR HGB CONC 31.5 g/dl (32.0-37.0); MEAN CORPUSCULAR VOLUME 85.4 fl (82.0-101.0); MEAN PLATELET VOLUME 10.8 fl (7.4-10.4); MONOCYTE # 0.6 10^3/ul (0.3-0.9); MONOCYTES % 12.4 % (0.0-11.0); NEUTROPHIL # 2.6 10^3/ul (1.6-7.5); NEUTROPHILS % 54.4 % (39.0-77.0); PLATELET COUNT 123 10^3/UL (140-415); RED BLOOD COUNT 3.83 10^6/ul (4.70-6.10); RED CELL DISTRIBUTION WIDTH 14.1 % (11.5-14.5)
[2018-02-21 07:30] LABS: ANION GAP 12 (8-16); BLOOD UREA NITROGEN 42 mg/dl (7-20); CALCIUM 8.9 mg/dl (8.4-10.2); CARBON DIOXIDE 33 mmol/L (21-31); CHLORIDE 103 mmol/L (97-110); CREATININE 0.84 mg/dl (0.61-1.24); GLUCOSE 150 mg/dl (70-220); POTASSIUM 4.4 mmol/L (3.5-5.1); SODIUM 144 mmol/L (135-144)
[2018-02-21] MEDS: INSULIN ASPART [NOVOLOG] 3 ML PEN SC ×7 (07:55→22:58)
[2018-02-21] MEDS: TIOTROPIUM 18 MCG CAPSULE INHA DEV INH (08:52)
[2018-02-21] MEDS: COLLAGENASE 5 GM (UD JAR) TOP (08:53)
[2018-02-21] MEDS: FUROSEMIDE 20 MG INJ IV (08:53)
[2018-02-21] MEDS: FERROUS SULFATE (EC) 325 MG TAB PO (08:53)
[2018-02-21] MEDS: DULOXETINE 30 MG CAP DR PO (08:53)
[2018-02-21] MEDS: BENAZEPRIL 20 MG TAB PO ×2 (08:54→23:08)
[2018-02-21] MEDS: AMIODARONE 200 MG TAB PO (08:54)
[2018-02-21] MEDS: ATENOLOL 25 MG TAB PO ×2 (08:55→21:00)
[2018-02-21] MEDS: APIXABAN 5 MG TABLET PO ×2 (08:55→23:08)
[2018-02-21] MEDS: PANTOPRAZOLE (EC) 40 MG TAB PO (08:55)
[2018-02-21] MEDS: AMLODIPINE 10 MG TAB PO (08:56)
[2018-02-21] MEDS: SALMETEROL/FLUTICASONE 250/50 INHA INH ×2 (09:00→21:00)
[2018-02-22] MEDS: INSULIN GLARGINE [LANtus] 3 ML PEN SC ×2 (00:20→20:04)
[2018-02-22] MEDS: ACCU-CHEK XX (01:42)
[2018-02-22] MEDS: PANTOPRAZOLE (EC) 40 MG TAB PO (05:18)
[2018-02-22] MEDS: HYDROmorphONE 0.5 MG/0.5 ML SYG IV ×5 (05:18→22:28)
[2018-02-22] MEDS ORDERED: PANTOPRAZOLE (EC) 40 MG TAB PO (07:30)
[2018-02-22] MEDS: INSULIN ASPART [NOVOLOG] 3 ML PEN SC ×7 (08:00→20:10)
[2018-02-22] MEDS: SALMETEROL/FLUTICASONE 250/50 INHA INH ×2 (08:28→20:04)
[2018-02-22] MEDS: ATENOLOL 25 MG TAB PO ×2 (08:29→20:05)
[2018-02-22] MEDS: COLLAGENASE 5 GM (UD JAR) TOP (08:29)
[2018-02-22] MEDS: TIOTROPIUM 18 MCG CAPSULE INHA DEV INH (08:29)
[2018-02-22] MEDS: APIXABAN 5 MG TABLET PO ×2 (08:30→20:04)
[2018-02-22] MEDS: AMLODIPINE 10 MG TAB PO (08:30)
[2018-02-22] MEDS: AMIODARONE 200 MG TAB PO (08:30)
[2018-02-22] MEDS: BENAZEPRIL 20 MG TAB PO ×2 (08:30→20:05)
[2018-02-22] MEDS: DULOXETINE 30 MG CAP DR PO (08:30)
[2018-02-22] MEDS: FERROUS SULFATE (EC) 325 MG TAB PO (08:30)
[2018-02-22] MEDS: FUROSEMIDE 20 MG INJ IV (08:31)
[2018-02-22 09:26] LABS: ANION GAP 13 (8-16); BLOOD UREA NITROGEN 43 mg/dl (7-20); CALCIUM 9.6 mg/dl (8.4-10.2); CARBON DIOXIDE 34 mmol/L (21-31); CHLORIDE 103 mmol/L (97-110); CREATININE 1.04 mg/dl (0.61-1.24); GLUCOSE 119 mg/dl (70-220); POTASSIUM 4.3 mmol/L (3.5-5.1); SODIUM 146 mmol/L (135-144)
[2018-02-22] MEDS: ACETAMINOPHEN 325 MG TAB PO (11:52)
[2018-02-23] MEDS: HYDROmorphONE 0.5 MG/0.5 ML SYG IV ×5 (02:36→22:09)
[2018-02-23] MEDS: ACCU-CHEK XX (02:43)
[2018-02-23] MEDS: PANTOPRAZOLE (EC) 40 MG TAB PO (05:23)
[2018-02-23] MEDS: INSULIN ASPART [NOVOLOG] 3 ML PEN SC ×7 (08:00→21:57)
[2018-02-23] MEDS: ATENOLOL 25 MG TAB PO ×2 (09:00→21:51)
[2018-02-23] MEDS: AMIODARONE 200 MG TAB PO (09:00)
[2018-02-23 09:06] LABS: ANION GAP 11 (8-16); BLOOD UREA NITROGEN 41 mg/dl (7-20); CALCIUM 8.5 mg/dl (8.4-10.2); CARBON DIOXIDE 31 mmol/L (21-31); CHLORIDE 106 mmol/L (97-110); GLUCOSE 131 mg/dl (70-220); SODIUM 144 mmol/L (135-144)
[2018-02-23] MEDS: FERROUS SULFATE (EC) 325 MG TAB PO (09:26)
[2018-02-23] MEDS: APIXABAN 5 MG TABLET PO ×2 (09:26→21:50)
[2018-02-23] MEDS: SALMETEROL/FLUTICASONE 250/50 INHA INH ×2 (09:26→22:04)
[2018-02-23] MEDS: COLLAGENASE 5 GM (UD JAR) TOP (09:26)
[2018-02-23] MEDS: DULOXETINE 30 MG CAP DR PO (09:26)
[2018-02-23] MEDS: TIOTROPIUM 18 MCG CAPSULE INHA DEV INH (09:27)
[2018-02-23] MEDS: AMLODIPINE 10 MG TAB PO (09:27)
[2018-02-23] MEDS: BENAZEPRIL 20 MG TAB PO ×2 (09:27→21:50)
[2018-02-23] MEDS: FUROSEMIDE 20 MG INJ IV (09:28)
[2018-02-23] MEDS: INSULIN GLARGINE [LANtus] 3 ML PEN SC (21:52)
[2018-02-24] MEDS: ACCU-CHEK XX (02:00)
[2018-02-24] MEDS: HYDROmorphONE 0.5 MG/0.5 ML SYG IV ×6 (02:05→23:32)
[2018-02-24] MEDS: PANTOPRAZOLE (EC) 40 MG TAB PO (06:05)
[2018-02-24] MEDS: COLLAGENASE 5 GM (UD JAR) TOP (06:53)
[2018-02-24] MEDS: INSULIN ASPART [NOVOLOG] 3 ML PEN SC ×7 (08:00→21:00)
[2018-02-24] MEDS: SALMETEROL/FLUTICASONE 250/50 INHA INH ×2 (09:39→21:00)
[2018-02-24] MEDS: DULOXETINE 30 MG CAP DR PO (09:40)
[2018-02-24] MEDS: TIOTROPIUM 18 MCG CAPSULE INHA DEV INH (09:40)
[2018-02-24] MEDS: FERROUS SULFATE (EC) 325 MG TAB PO (09:41)
[2018-02-24] MEDS: BENAZEPRIL 20 MG TAB PO ×2 (09:42→21:24)
[2018-02-24] MEDS: FUROSEMIDE 20 MG INJ IV (09:42)
[2018-02-24] MEDS: AMLODIPINE 10 MG TAB PO (09:42)
[2018-02-24] MEDS: AMIODARONE 200 MG TAB PO (09:45)
[2018-02-24] MEDS: ATENOLOL 25 MG TAB PO ×2 (09:48→21:25)
[2018-02-24] MEDS: APIXABAN 5 MG TABLET PO ×2 (09:48→21:23)
[2018-02-24] MEDS: INSULIN GLARGINE [LANtus] 3 ML PEN SC (09:55)
[2018-02-25] MEDS: ACCU-CHEK XX (02:00)
[2018-02-25] MEDS: PANTOPRAZOLE (EC) 40 MG TAB PO (05:07)
[2018-02-25] MEDS: HYDROmorphONE 0.5 MG/0.5 ML SYG IV ×5 (05:07→21:35)
[2018-02-25 07:32] LABS: ADD MAN DIFF? NO
[2018-02-25 07:41] LABS: WHITE BLOOD COUNT 5.8 10^3/ul (4.8-10.8)
[2018-02-25 07:41] LABS: BASOPHIL # 0.1 10^3/ul (0.0-0.1); EOSINOPHILS # 0.4 10^3/ul (0.0-0.5); HEMATOCRIT 35.4 % (42.0-52.0); HEMOGLOBIN 11.2 g/dl (14.0-18.0); LYMPHOCYTES # 1.6 10^3/ul (0.8-2.9); LYMPHOCYTES % 27.7 % (15.0-51.0); MEAN CORPUSCULAR HEMOGLOBIN 26.9 pg (29.0-33.0); MEAN CORPUSCULAR HGB CONC 31.6 g/dl (32.0-37.0); MEAN CORPUSCULAR VOLUME 84.9 fl (82.0-101.0); MEAN PLATELET VOLUME 11.1 fl (7.4-10.4); MONOCYTE # 0.7 10^3/ul (0.3-0.9); MONOCYTES % 11.9 % (0.0-11.0); NEUTROPHILS % 51.9 % (39.0-77.0); PLATELET COUNT 128 10^3/UL (140-415); RED BLOOD COUNT 4.17 10^6/ul (4.70-6.10); RED CELL DISTRIBUTION WIDTH 14.1 % (11.5-14.5)
[2018-02-25 08:26] LABS: ANION GAP 13 (8-16); BLOOD UREA NITROGEN 47 mg/dl (7-20); CALCIUM 9.4 mg/dl (8.4-10.2); CARBON DIOXIDE 33 mmol/L (21-31); CHLORIDE 105 mmol/L (97-110); CREATININE 1.14 mg/dl (0.61-1.24); GLUCOSE 84 mg/dl (70-220); POTASSIUM 4.5 mmol/L (3.5-5.1); SODIUM 146 mmol/L (135-144)
[2018-02-25] MEDS: INSULIN ASPART [NOVOLOG] 3 ML PEN SC ×7 (08:30→21:02)
[2018-02-25] MEDS: DULOXETINE 30 MG CAP DR PO (09:09)
[2018-02-25] MEDS: APIXABAN 5 MG TABLET PO ×2 (09:09→20:49)
[2018-02-25] MEDS: AMLODIPINE 10 MG TAB PO (09:09)
[2018-02-25] MEDS: COLLAGENASE 5 GM (UD JAR) TOP (09:09)
[2018-02-25] MEDS: TIOTROPIUM 18 MCG CAPSULE INHA DEV INH (09:09)
[2018-02-25] MEDS: SALMETEROL/FLUTICASONE 250/50 INHA INH ×3 (09:09→21:00)
[2018-02-25] MEDS: FERROUS SULFATE (EC) 325 MG TAB PO (09:11)
[2018-02-25] MEDS: FUROSEMIDE 20 MG INJ IV (09:11)
[2018-02-25] MEDS: BENAZEPRIL 40 MG TAB PO (09:11)
[2018-02-25] MEDS: AMIODARONE 200 MG TAB PO (09:13)
[2018-02-25] MEDS: ATENOLOL 25 MG TAB PO ×2 (09:13→20:55)
[2018-02-25] MEDS: BENAZEPRIL 20 MG TAB PO (20:56)
[2018-02-25] MEDS: INSULIN GLARGINE [LANtus] 3 ML PEN SC (21:01)
[2018-02-26] MEDS: HYDROmorphONE 0.5 MG/0.5 ML SYG IV ×5 (01:57→18:16)
[2018-02-26] MEDS: ACCU-CHEK XX (02:00)
[2018-02-26] MEDS: PANTOPRAZOLE (EC) 40 MG TAB PO (05:45)
[2018-02-26] MEDS: INSULIN ASPART [NOVOLOG] 3 ML PEN SC ×7 (07:56→20:52)
[2018-02-26] MEDS: SALMETEROL/FLUTICASONE 250/50 INHA INH ×2 (09:06→20:49)
[2018-02-26] MEDS: APIXABAN 5 MG TABLET PO ×2 (09:07→20:49)
[2018-02-26] MEDS: DULOXETINE 30 MG CAP DR PO (09:07)
[2018-02-26] MEDS: AMIODARONE 200 MG TAB PO (09:07)
[2018-02-26] MEDS: FERROUS SULFATE (EC) 325 MG TAB PO (09:07)
[2018-02-26] MEDS: BENAZEPRIL 40 MG TAB PO (09:08)
[2018-02-26] MEDS: ATENOLOL 25 MG TAB PO ×2 (09:08→20:50)
[2018-02-26] MEDS: COLLAGENASE 5 GM (UD JAR) TOP (09:08)
[2018-02-26] MEDS: AMLODIPINE 10 MG TAB PO (09:08)
[2018-02-26] MEDS: FUROSEMIDE 20 MG INJ IV (09:11)
[2018-02-26] MEDS: TIOTROPIUM 18 MCG CAPSULE INHA DEV INH (10:11)
[2018-02-26] MEDS: HYDROCORTISONE 0.5% 28.35 GM CR TOP ×2 (14:03→20:59)
[2018-02-26 18:22] LABS: GLUCOSE 510 mg/dl (70-220)
[2018-02-26] MEDS: BENAZEPRIL 20 MG TAB PO (20:49)
[2018-02-26] MEDS: INSULIN GLARGINE [LANtus] 3 ML PEN SC (20:51)
[2018-02-27] MEDS: HYDROmorphONE 0.5 MG/0.5 ML SYG IV ×6 (00:08→21:31)
[2018-02-27] MEDS: ACCU-CHEK XX (02:53)
[2018-02-27] MEDS: PANTOPRAZOLE (EC) 40 MG TAB PO ×3 (05:37→05:42)
[2018-02-27] MEDS: SALMETEROL/FLUTICASONE 250/50 INHA INH ×2 (09:00→21:18)
[2018-02-27] MEDS: DULOXETINE 30 MG CAP DR PO (09:03)
[2018-02-27] MEDS: BENAZEPRIL 40 MG TAB PO (09:04)
[2018-02-27] MEDS: AMIODARONE 200 MG TAB PO (09:07)
[2018-02-27] MEDS: FERROUS SULFATE (EC) 325 MG TAB PO (09:07)
[2018-02-27] MEDS: AMLODIPINE 10 MG TAB PO (09:08)
[2018-02-27] MEDS: APIXABAN 5 MG TABLET PO ×2 (09:09→21:17)
[2018-02-27] MEDS: ATENOLOL 25 MG TAB PO ×2 (09:11→21:00)
[2018-02-27] MEDS: TIOTROPIUM 18 MCG CAPSULE INHA DEV INH (09:12)
[2018-02-27] MEDS: HYDROCORTISONE 0.5% 28.35 GM CR TOP ×2 (09:17→21:48)
[2018-02-27] MEDS: COLLAGENASE 5 GM (UD JAR) TOP (09:18)
[2018-02-27] MEDS: FUROSEMIDE 20 MG INJ IV (09:19)
[2018-02-27] MEDS: INSULIN ASPART [NOVOLOG] 3 ML PEN SC ×7 (09:27→21:20)
[2018-02-27] MEDS: BENAZEPRIL 20 MG TAB PO (21:17)
[2018-02-27] MEDS: INSULIN GLARGINE [LANtus] 3 ML PEN SC (21:20)
[2018-02-28] MEDS: HYDROmorphONE 0.5 MG/0.5 ML SYG IV ×6 (01:55→21:57)
[2018-02-28] MEDS: ACCU-CHEK XX (02:01)
[2018-02-28] MEDS: PANTOPRAZOLE (EC) 40 MG TAB PO (05:44)
[2018-02-28] MEDS: INSULIN ASPART [NOVOLOG] 3 ML PEN SC ×7 (08:00→20:33)
[2018-02-28] MEDS: ATENOLOL 25 MG TAB PO ×2 (09:00→20:22)
[2018-02-28] MEDS: SALMETEROL/FLUTICASONE 250/50 INHA INH ×2 (09:00→20:33)
[2018-02-28 09:03] LABS: ADD MAN DIFF? NO
[2018-02-28 09:15] LABS: BASOPHILS % 0.8 % (0.0-2.0); EOSINOPHILS # 0.4 10^3/ul (0.0-0.5); EOSINOPHILS % 7.7 % (0.0-7.0); HEMATOCRIT 31.7 % (42.0-52.0); LYMPHOCYTES # 1.4 10^3/ul (0.8-2.9); LYMPHOCYTES % 29.3 % (15.0-51.0); MEAN CORPUSCULAR HEMOGLOBIN 26.9 pg (29.0-33.0); MEAN CORPUSCULAR HGB CONC 31.5 g/dl (32.0-37.0); MEAN CORPUSCULAR VOLUME 85.2 fl (82.0-101.0); MEAN PLATELET VOLUME 11.3 fl (7.4-10.4); MONOCYTE # 0.6 10^3/ul (0.3-0.9); MONOCYTES % 11.6 % (0.0-11.0); NEUTROPHIL # 2.5 10^3/ul (1.6-7.5); PLATELET COUNT 114 10^3/UL (140-415); RED BLOOD COUNT 3.72 10^6/ul (4.70-6.10)
[2018-02-28 09:15] LABS: WHITE BLOOD COUNT 4.9 10^3/ul (4.8-10.8)
[2018-02-28 09:40] LABS: ANION GAP 12 (8-16); BLOOD UREA NITROGEN 55 mg/dl (7-20); CALCIUM 9.1 mg/dl (8.4-10.2); CARBON DIOXIDE 32 mmol/L (21-31); CHLORIDE 104 mmol/L (97-110); CREATININE 1.04 mg/dl (0.61-1.24); GLUCOSE 104 mg/dl (70-220); POTASSIUM 4.7 mmol/L (3.5-5.1); SODIUM 143 mmol/L (135-144)
[2018-02-28] MEDS: DULOXETINE 30 MG CAP DR PO (09:41)
[2018-02-28] MEDS: AMIODARONE 200 MG TAB PO (09:42)
[2018-02-28] MEDS: APIXABAN 5 MG TABLET PO ×2 (09:42→20:21)
[2018-02-28] MEDS: AMLODIPINE 10 MG TAB PO (09:42)
[2018-02-28] MEDS: FERROUS SULFATE (EC) 325 MG TAB PO (09:43)
[2018-02-28] MEDS: BENAZEPRIL 40 MG TAB PO (09:43)
[2018-02-28] MEDS: FUROSEMIDE 20 MG INJ IV (09:48)
[2018-02-28] MEDS: TIOTROPIUM 18 MCG CAPSULE INHA DEV INH (11:07)
[2018-02-28] MEDS: HYDROCORTISONE 0.5% 28.35 GM CR TOP ×2 (11:08→20:23)
[2018-02-28] MEDS: COLLAGENASE 5 GM (UD JAR) TOP (11:08)
[2018-02-28] MEDS: BENAZEPRIL 20 MG TAB PO (20:21)
[2018-02-28] MEDS: INSULIN GLARGINE [LANtus] 3 ML PEN SC (20:27)
[2018-03-01] MEDS: ACCU-CHEK XX (02:00)
[2018-03-01] MEDS: HYDROmorphONE 0.5 MG/0.5 ML SYG IV ×5 (02:08→21:38)
[2018-03-01] MEDS: PANTOPRAZOLE (EC) 40 MG TAB PO (06:04)
[2018-03-01 07:54] LABS: ADD MAN DIFF? NO
[2018-03-01 07:58] LABS: BASOPHILS % 0.7 % (0.0-2.0); EOSINOPHILS # 0.4 10^3/ul (0.0-0.5); EOSINOPHILS % 8.4 % (0.0-7.0); HEMATOCRIT 31.4 % (42.0-52.0); HEMOGLOBIN 10.1 g/dl (14.0-18.0); LYMPHOCYTES # 1.3 10^3/ul (0.8-2.9); LYMPHOCYTES % 30.1 % (15.0-51.0); MEAN CORPUSCULAR HEMOGLOBIN 27.2 pg (29.0-33.0); MEAN CORPUSCULAR HGB CONC 32.2 g/dl (32.0-37.0); MEAN CORPUSCULAR VOLUME 84.6 fl (82.0-101.0); MEAN PLATELET VOLUME 11.3 fl (7.4-10.4); MONOCYTE # 0.5 10^3/ul (0.3-0.9); NEUTROPHIL # 2.1 10^3/ul (1.6-7.5); NEUTROPHILS % 48.3 % (39.0-77.0); PLATELET COUNT 106 10^3/UL (140-415); RED BLOOD COUNT 3.71 10^6/ul (4.70-6.10); RED CELL DISTRIBUTION WIDTH 13.7 % (11.5-14.5)
[2018-03-01 07:58] LABS: WHITE BLOOD COUNT 4.4 10^3/ul (4.8-10.8)
[2018-03-01] MEDS: INSULIN ASPART [NOVOLOG] 3 ML PEN SC ×7 (08:00→21:39)
[2018-03-01 08:26] LABS: ANION GAP 12 (8-16); BLOOD UREA NITROGEN 52 mg/dl (7-20); CARBON DIOXIDE 33 mmol/L (21-31); CHLORIDE 105 mmol/L (97-110); CREATININE 1.11 mg/dl (0.61-1.24); GLUCOSE 127 mg/dl (70-220); SODIUM 145 mmol/L (135-144)
[2018-03-01] MEDS: AMLODIPINE 10 MG TAB PO (08:43)
[2018-03-01] MEDS: SALMETEROL/FLUTICASONE 250/50 INHA INH ×2 (08:48→21:00)
[2018-03-01] MEDS: FUROSEMIDE 20 MG INJ IV (08:48)
[2018-03-01] MEDS: TIOTROPIUM 18 MCG CAPSULE INHA DEV INH (08:48)
[2018-03-01] MEDS: APIXABAN 5 MG TABLET PO ×2 (08:48→21:29)
[2018-03-01] MEDS: AMIODARONE 200 MG TAB PO (08:48)
[2018-03-01] MEDS: FERROUS SULFATE (EC) 325 MG TAB PO (08:48)
[2018-03-01] MEDS: BENAZEPRIL 40 MG TAB PO (08:49)
[2018-03-01] MEDS: DULOXETINE 30 MG CAP DR PO (08:49)
[2018-03-01] MEDS: COLLAGENASE 5 GM (UD JAR) TOP (08:50)
[2018-03-01] MEDS: HYDROCORTISONE 0.5% 28.35 GM CR TOP ×2 (08:50→21:35)
[2018-03-01] MEDS: ATENOLOL 25 MG TAB PO ×2 (08:50→21:30)
[2018-03-01] MEDS: BENAZEPRIL 20 MG TAB PO (21:30)
[2018-03-01] MEDS: INSULIN GLARGINE [LANtus] 3 ML PEN SC (21:33)
[2018-03-02] MEDS: ACCU-CHEK XX (02:00)
[2018-03-02] MEDS: HYDROmorphONE 0.5 MG/0.5 ML SYG IV ×5 (03:12→20:43)
[2018-03-02] MEDS: PANTOPRAZOLE (EC) 40 MG TAB PO (05:13)
[2018-03-02] MEDS: FUROSEMIDE 20 MG TAB PO ×2 (05:14→17:19)
[2018-03-02] MEDS: INSULIN ASPART [NOVOLOG] 3 ML PEN SC ×7 (08:00→20:39)
[2018-03-02] MEDS: TIOTROPIUM 18 MCG CAPSULE INHA DEV INH (08:30)
[2018-03-02] MEDS: APIXABAN 5 MG TABLET PO ×2 (08:30→20:40)
[2018-03-02] MEDS: DULOXETINE 30 MG CAP DR PO (08:32)
[2018-03-02] MEDS: AMIODARONE 200 MG TAB PO (08:32)
[2018-03-02] MEDS: BENAZEPRIL 40 MG TAB PO (08:33)
[2018-03-02] MEDS: AMLODIPINE 10 MG TAB PO (08:33)
[2018-03-02] MEDS: FERROUS SULFATE (EC) 325 MG TAB PO (08:33)
[2018-03-02] MEDS: COLLAGENASE 5 GM (UD JAR) TOP (08:34)
[2018-03-02] MEDS: ATENOLOL 25 MG TAB PO ×2 (08:34→20:40)
[2018-03-02] MEDS: HYDROCORTISONE 0.5% 28.35 GM CR TOP ×2 (08:34→20:49)
[2018-03-02] MEDS: SALMETEROL/FLUTICASONE 250/50 INHA INH ×2 (08:35→20:38)
[2018-03-02] MEDS: INSULIN GLARGINE [LANtus] 3 ML PEN SC (20:00)
[2018-03-02] MEDS: BENAZEPRIL 20 MG TAB PO (20:40)
[2018-03-02] MEDS: ACETAMINOPHEN 325 MG TAB PO (22:13)
[2018-03-03] MEDS: HYDROmorphONE 0.5 MG/0.5 ML SYG IV ×6 (00:45→22:10)
[2018-03-03] MEDS: ACCU-CHEK XX (02:00)
[2018-03-03] MEDS: PANTOPRAZOLE (EC) 40 MG TAB PO (05:15)
[2018-03-03] MEDS: FUROSEMIDE 20 MG TAB PO ×2 (05:21→09:10)
[2018-03-03 05:59] LABS: ADD MAN DIFF? NO
[2018-03-03 06:03] LABS: WHITE BLOOD COUNT 4.9 10^3/ul (4.8-10.8)
[2018-03-03 06:03] LABS: BASOPHILS % 0.8 % (0.0-2.0); EOSINOPHILS # 0.4 10^3/ul (0.0-0.5); EOSINOPHILS % 7.8 % (0.0-7.0); HEMATOCRIT 30.4 % (42.0-52.0); HEMOGLOBIN 9.7 g/dl (14.0-18.0); LYMPHOCYTES # 1.6 10^3/ul (0.8-2.9); LYMPHOCYTES % 33.3 % (15.0-51.0); MEAN CORPUSCULAR HEMOGLOBIN 26.9 pg (29.0-33.0); MEAN CORPUSCULAR HGB CONC 31.9 g/dl (32.0-37.0); MEAN CORPUSCULAR VOLUME 84.4 fl (82.0-101.0); MEAN PLATELET VOLUME 11.7 fl (7.4-10.4); MONOCYTE # 0.5 10^3/ul (0.3-0.9); MONOCYTES % 10.8 % (0.0-11.0); NEUTROPHIL # 2.3 10^3/ul (1.6-7.5); NEUTROPHILS % 46.9 % (39.0-77.0); PLATELET COUNT 101 10^3/UL (140-415); RED CELL DISTRIBUTION WIDTH 13.7 % (11.5-14.5)
[2018-03-03 06:22] LABS: ANION GAP 15 (8-16); BLOOD UREA NITROGEN 56 mg/dl (7-20); CARBON DIOXIDE 30 mmol/L (21-31); CHLORIDE 104 mmol/L (97-110); CREATININE 1.27 mg/dl (0.61-1.24); GLUCOSE 197 mg/dl (70-220); POTASSIUM 4.6 mmol/L (3.5-5.1); SODIUM 144 mmol/L (135-144)
[2018-03-03] MEDS: INSULIN ASPART [NOVOLOG] 3 ML PEN SC ×7 (08:33→21:00)
[2018-03-03] MEDS: FERROUS SULFATE (EC) 325 MG TAB PO (08:36)
[2018-03-03] MEDS: AMLODIPINE 10 MG TAB PO (08:36)
[2018-03-03] MEDS: BENAZEPRIL 40 MG TAB PO (08:36)
[2018-03-03] MEDS: APIXABAN 5 MG TABLET PO ×2 (08:36→20:40)
[2018-03-03] MEDS: DULOXETINE 30 MG CAP DR PO (08:36)
[2018-03-03] MEDS: TIOTROPIUM 18 MCG CAPSULE INHA DEV INH (08:36)
[2018-03-03] MEDS: ATENOLOL 25 MG TAB PO ×2 (08:36→20:43)
[2018-03-03] MEDS: HYDROCORTISONE 0.5% 28.35 GM CR TOP ×2 (08:37→20:48)
[2018-03-03] MEDS: AMIODARONE 200 MG TAB PO (08:37)
[2018-03-03] MEDS: COLLAGENASE 5 GM (UD JAR) TOP (08:37)
[2018-03-03] MEDS: SALMETEROL/FLUTICASONE 250/50 INHA INH ×2 (08:37→20:47)
[2018-03-03] MEDS: SOD CHLORIDE 0.9% 1,000 ML IV ×2 (09:10→22:49)
[2018-03-03] MEDS: INSULIN GLARGINE [LANtus] 3 ML PEN SC (20:04)
[2018-03-03] MEDS: BENAZEPRIL 20 MG TAB PO (20:43)
[2018-03-04] MEDS: ACCU-CHEK XX (02:00)
[2018-03-04] MEDS: HYDROmorphONE 0.5 MG/0.5 ML SYG IV ×5 (03:56→20:46)
[2018-03-04 05:26] LABS: ADD MAN DIFF? NO
[2018-03-04 05:36] LABS: ABNORMAL IP MESSAGE 1; BASOPHILS % 0.7 % (0.0-2.0); EOSINOPHILS # 0.3 10^3/ul (0.0-0.5); EOSINOPHILS % 8.5 % (0.0-7.0); HEMATOCRIT 30.9 % (42.0-52.0); HEMOGLOBIN 9.8 g/dl (14.0-18.0); LYMPHOCYTES # 1.3 10^3/ul (0.8-2.9); LYMPHOCYTES % 31.2 % (15.0-51.0); MEAN CORPUSCULAR HEMOGLOBIN 27.3 pg (29.0-33.0); MEAN CORPUSCULAR HGB CONC 31.7 g/dl (32.0-37.0); MEAN CORPUSCULAR VOLUME 86.1 fl (82.0-101.0); MEAN PLATELET VOLUME 11.4 fl (7.4-10.4); MONOCYTE # 0.5 10^3/ul (0.3-0.9); MONOCYTES % 11.7 % (0.0-11.0); NEUTROPHIL # 1.9 10^3/ul (1.6-7.5); NEUTROPHILS % 47.4 % (39.0-77.0); PLATELET COUNT 86 10^3/UL (140-415); POSITIVE DIFF @See below; RED BLOOD COUNT 3.59 10^6/ul (4.70-6.10); RED CELL DISTRIBUTION WIDTH 13.5 % (11.5-14.5)
[2018-03-04 05:47] LABS: ANION GAP 13 (8-16); BLOOD UREA NITROGEN 51 mg/dl (7-20); CALCIUM 8.9 mg/dl (8.4-10.2); CARBON DIOXIDE 30 mmol/L (21-31); CHLORIDE 107 mmol/L (97-110); CREATININE 1.12 mg/dl (0.61-1.24); GLUCOSE 196 mg/dl (70-220); POTASSIUM 4.4 mmol/L (3.5-5.1); SODIUM 146 mmol/L (135-144)
[2018-03-04] MEDS: PANTOPRAZOLE (EC) 40 MG TAB PO (06:28)
[2018-03-04] MEDS: FUROSEMIDE 20 MG TAB PO (06:29)
[2018-03-04] MEDS: INSULIN ASPART [NOVOLOG] 3 ML PEN SC ×7 (08:16→21:00)
[2018-03-04] MEDS: AMLODIPINE 10 MG TAB PO (08:17)
[2018-03-04] MEDS: FERROUS SULFATE (EC) 325 MG TAB PO (08:17)
[2018-03-04] MEDS: AMIODARONE 200 MG TAB PO (08:17)
[2018-03-04] MEDS: COLLAGENASE 5 GM (UD JAR) TOP (08:17)
[2018-03-04] MEDS: APIXABAN 5 MG TABLET PO ×2 (08:17→20:49)
[2018-03-04] MEDS: DULOXETINE 30 MG CAP DR PO (08:17)
[2018-03-04] MEDS: TIOTROPIUM 18 MCG CAPSULE INHA DEV INH (08:17)
[2018-03-04] MEDS: ATENOLOL 25 MG TAB PO ×2 (08:18→20:49)
[2018-03-04] MEDS: BENAZEPRIL 40 MG TAB PO (08:18)
[2018-03-04] MEDS: SALMETEROL/FLUTICASONE 250/50 INHA INH ×2 (08:19→20:55)
[2018-03-04] MEDS: HYDROCORTISONE 0.5% 28.35 GM CR TOP ×2 (08:19→20:51)
[2018-03-04] MEDS: INSULIN GLARGINE [LANtus] 3 ML PEN SC (20:06)
[2018-03-04] MEDS: BENAZEPRIL 20 MG TAB PO (20:49)
[2018-03-05] MEDS: HYDROmorphONE 0.5 MG/0.5 ML SYG IV ×6 (01:56→22:17)
[2018-03-05] MEDS: ACCU-CHEK XX (02:00)
[2018-03-05] MEDS: PANTOPRAZOLE (EC) 40 MG TAB PO (06:02)
[2018-03-05] MEDS: FUROSEMIDE 20 MG TAB PO (06:05)
[2018-03-05 06:22] LABS: ADD MAN DIFF? NO
[2018-03-05 06:25] LABS: ABNORMAL IP MESSAGE 1; BASOPHILS % 1.1 % (0.0-2.0); EOSINOPHILS # 0.3 10^3/ul (0.0-0.5); EOSINOPHILS % 7.4 % (0.0-7.0); HEMATOCRIT 30.8 % (42.0-52.0); HEMOGLOBIN 9.7 g/dl (14.0-18.0); LYMPHOCYTES # 1.2 10^3/ul (0.8-2.9); MEAN CORPUSCULAR HEMOGLOBIN 26.9 pg (29.0-33.0); MEAN CORPUSCULAR HGB CONC 31.5 g/dl (32.0-37.0); MEAN CORPUSCULAR VOLUME 85.6 fl (82.0-101.0); MEAN PLATELET VOLUME 12.2 fl (7.4-10.4); MONOCYTE # 0.4 10^3/ul (0.3-0.9); MONOCYTES % 11.4 % (0.0-11.0); NEUTROPHIL # 1.8 10^3/ul (1.6-7.5); NEUTROPHILS % 48.6 % (39.0-77.0); PLATELET COUNT 78 10^3/UL (140-415); POSITIVE DIFF @See below; RED CELL DISTRIBUTION WIDTH 13.5 % (11.5-14.5)
[2018-03-05 06:25] LABS: WHITE BLOOD COUNT 3.8 10^3/ul (4.8-10.8)
[2018-03-05 06:44] LABS: ANION GAP 13 (8-16); BLOOD UREA NITROGEN 39 mg/dl (7-20); CALCIUM 8.8 mg/dl (8.4-10.2); CARBON DIOXIDE 30 mmol/L (21-31); CHLORIDE 105 mmol/L (97-110); CREATININE 1.02 mg/dl (0.61-1.24); GLUCOSE 209 mg/dl (70-220); POTASSIUM 4.4 mmol/L (3.5-5.1); SODIUM 144 mmol/L (135-144)
[2018-03-05] MEDS: DULOXETINE 30 MG CAP DR PO (09:08)
[2018-03-05] MEDS: ATENOLOL 25 MG TAB PO ×2 (09:08→20:32)
[2018-03-05] MEDS: BENAZEPRIL 40 MG TAB PO (09:09)
[2018-03-05] MEDS: APIXABAN 5 MG TABLET PO ×2 (09:09→20:31)
[2018-03-05] MEDS: AMIODARONE 200 MG TAB PO (09:09)
[2018-03-05] MEDS: FERROUS SULFATE (EC) 325 MG TAB PO (09:09)
[2018-03-05] MEDS: TIOTROPIUM 18 MCG CAPSULE INHA DEV INH (09:10)
[2018-03-05] MEDS: AMLODIPINE 10 MG TAB PO (09:10)
[2018-03-05] MEDS: SALMETEROL/FLUTICASONE 250/50 INHA INH ×2 (09:10→20:31)
[2018-03-05] MEDS: INSULIN ASPART [NOVOLOG] 3 ML PEN SC ×7 (09:11→21:00)
[2018-03-05] MEDS: COLLAGENASE 5 GM (UD JAR) TOP (14:49)
[2018-03-05] MEDS: HYDROCORTISONE 0.5% 28.35 GM CR TOP ×2 (14:50→20:33)
[2018-03-05] MEDS: INSULIN GLARGINE [LANtus] 3 ML PEN SC (20:14)
[2018-03-05] MEDS: BENAZEPRIL 20 MG TAB PO (20:32)
[2018-03-06] MEDS: ACCU-CHEK XX (01:55)
[2018-03-06] MEDS: HYDROmorphONE 0.5 MG/0.5 ML SYG IV ×5 (04:19→21:21)
[2018-03-06] MEDS: PANTOPRAZOLE (EC) 40 MG TAB PO (05:31)
[2018-03-06] MEDS: FUROSEMIDE 20 MG TAB PO (05:31)
[2018-03-06 05:58] LABS: ADD MAN DIFF? NO
[2018-03-06 06:08] LABS: WHITE BLOOD COUNT 4.6 10^3/ul (4.8-10.8)
[2018-03-06 06:08] LABS: ABNORMAL IP MESSAGE 1; BASOPHILS % 0.4 % (0.0-2.0); EOSINOPHILS # 0.3 10^3/ul (0.0-0.5); EOSINOPHILS % 6.9 % (0.0-7.0); HEMATOCRIT 31.4 % (42.0-52.0); HEMOGLOBIN 9.9 g/dl (14.0-18.0); LYMPHOCYTES # 1.2 10^3/ul (0.8-2.9); LYMPHOCYTES % 25.7 % (15.0-51.0); MEAN CORPUSCULAR HEMOGLOBIN 26.9 pg (29.0-33.0); MEAN CORPUSCULAR HGB CONC 31.5 g/dl (32.0-37.0); MEAN CORPUSCULAR VOLUME 85.3 fl (82.0-101.0); MEAN PLATELET VOLUME 11.1 fl (7.4-10.4); MONOCYTE # 0.5 10^3/ul (0.3-0.9); MONOCYTES % 11.4 % (0.0-11.0); NEUTROPHIL # 2.5 10^3/ul (1.6-7.5); PLATELET COUNT 75 10^3/UL (140-415); POSITIVE DIFF @See below; RED BLOOD COUNT 3.68 10^6/ul (4.70-6.10); RED CELL DISTRIBUTION WIDTH 13.5 % (11.5-14.5)
[2018-03-06 06:40] LABS: ANION GAP 11 (8-16); BLOOD UREA NITROGEN 45 mg/dl (7-20); CARBON DIOXIDE 32 mmol/L (21-31); CHLORIDE 106 mmol/L (97-110); CREATININE 1.03 mg/dl (0.61-1.24); GLUCOSE 171 mg/dl (70-220); POTASSIUM 4.3 mmol/L (3.5-5.1); SODIUM 145 mmol/L (135-144)
[2018-03-06] MEDS: INSULIN ASPART [NOVOLOG] 3 ML PEN SC ×7 (08:43→21:25)
[2018-03-06] MEDS: SALMETEROL/FLUTICASONE 250/50 INHA INH ×3 (08:44→21:20)
[2018-03-06] MEDS: COLLAGENASE 5 GM (UD JAR) TOP (08:44)
[2018-03-06] MEDS: APIXABAN 5 MG TABLET PO ×2 (08:45→21:20)
[2018-03-06] MEDS: FERROUS SULFATE (EC) 325 MG TAB PO (08:45)
[2018-03-06] MEDS: DULOXETINE 30 MG CAP DR PO (08:45)
[2018-03-06] MEDS: ATENOLOL 25 MG TAB PO ×2 (08:46→21:21)
[2018-03-06] MEDS: BENAZEPRIL 40 MG TAB PO (08:46)
[2018-03-06] MEDS: HYDROCORTISONE 0.5% 28.35 GM CR TOP ×2 (08:47→21:28)
[2018-03-06] MEDS: AMLODIPINE 10 MG TAB PO (08:47)
[2018-03-06] MEDS: AMIODARONE 200 MG TAB PO (08:47)
[2018-03-06] MEDS: TIOTROPIUM 18 MCG CAPSULE INHA DEV INH (10:26)
[2018-03-06] MEDS: BENAZEPRIL 20 MG TAB PO (21:20)
[2018-03-06] MEDS: INSULIN GLARGINE [LANtus] 3 ML PEN SC (21:27)
[2018-03-07] MEDS: HYDROmorphONE 0.5 MG/0.5 ML SYG IV ×6 (01:28→22:05)
[2018-03-07] MEDS: ACCU-CHEK XX ×2 (02:00→20:40)
[2018-03-07 05:30] LABS: ADD MAN DIFF? NO
[2018-03-07] MEDS: PANTOPRAZOLE (EC) 40 MG TAB PO (05:39)
[2018-03-07 05:41] LABS: ABNORMAL IP MESSAGE 1; BASOPHILS % 0.5 % (0.0-2.0); EOSINOPHILS # 0.3 10^3/ul (0.0-0.5); EOSINOPHILS % 7.3 % (0.0-7.0); HEMATOCRIT 28.3 % (42.0-52.0); LYMPHOCYTES # 1.2 10^3/ul (0.8-2.9); MEAN CORPUSCULAR HGB CONC 31.8 g/dl (32.0-37.0); MEAN PLATELET VOLUME 11.6 fl (7.4-10.4); MONOCYTE # 0.5 10^3/ul (0.3-0.9); MONOCYTES % 11.6 % (0.0-11.0); NEUTROPHIL # 2.3 10^3/ul (1.6-7.5); NEUTROPHILS % 52.1 % (39.0-77.0); PLATELET COUNT 72 10^3/UL (140-415); POSITIVE DIFF @See below; RED BLOOD COUNT 3.33 10^6/ul (4.70-6.10); RED CELL DISTRIBUTION WIDTH 13.8 % (11.5-14.5)
[2018-03-07 05:41] LABS: WHITE BLOOD COUNT 4.4 10^3/ul (4.8-10.8)
[2018-03-07] MEDS: FUROSEMIDE 20 MG TAB PO (05:41)
[2018-03-07 06:13] LABS: ANION GAP 11 (8-16); BLOOD UREA NITROGEN 49 mg/dl (7-20); CALCIUM 8.9 mg/dl (8.4-10.2); CARBON DIOXIDE 31 mmol/L (21-31); CHLORIDE 106 mmol/L (97-110); GLUCOSE 218 mg/dl (70-220); POTASSIUM 4.1 mmol/L (3.5-5.1); SODIUM 144 mmol/L (135-144)
[2018-03-07] MEDS: INSULIN ASPART [NOVOLOG] 3 ML PEN SC ×7 (08:00→20:30)
[2018-03-07] MEDS: ATENOLOL 25 MG TAB PO ×2 (08:37→20:26)
[2018-03-07] MEDS: AMIODARONE 200 MG TAB PO (08:38)
[2018-03-07] MEDS: HYDROCORTISONE 0.5% 28.35 GM CR TOP ×3 (09:00→20:39)
[2018-03-07] MEDS: SALMETEROL/FLUTICASONE 250/50 INHA INH ×3 (09:00→20:39)
[2018-03-07] MEDS: TIOTROPIUM 18 MCG CAPSULE INHA DEV INH (09:11)
[2018-03-07] MEDS: BENAZEPRIL 40 MG TAB PO (09:11)
[2018-03-07] MEDS: DULOXETINE 30 MG CAP DR PO (09:11)
[2018-03-07] MEDS: FERROUS SULFATE (EC) 325 MG TAB PO (09:11)
[2018-03-07] MEDS: APIXABAN 5 MG TABLET PO ×2 (09:11→20:26)
[2018-03-07] MEDS: AMLODIPINE 10 MG TAB PO (09:14)
[2018-03-07] MEDS: COLLAGENASE 5 GM (UD JAR) TOP (09:15)
[2018-03-07] MEDS: BENAZEPRIL 20 MG TAB PO (20:27)
[2018-03-07] MEDS: INSULIN GLARGINE [LANtus] 3 ML PEN SC (20:30)
[2018-03-08] MEDS: HYDROmorphONE 0.5 MG/0.5 ML SYG IV ×7 (02:04→23:06)
[2018-03-08] MEDS: PANTOPRAZOLE (EC) 40 MG TAB PO (06:00)
[2018-03-08] MEDS: FUROSEMIDE 20 MG TAB PO (06:01)
[2018-03-08 06:57] LABS: ADD MAN DIFF? NO
[2018-03-08 07:03] LABS: WHITE BLOOD COUNT 4.6 10^3/ul (4.8-10.8)
[2018-03-08 07:03] LABS: ABNORMAL IP MESSAGE 1; BASOPHILS % 0.6 % (0.0-2.0); EOSINOPHILS # 0.3 10^3/ul (0.0-0.5); EOSINOPHILS % 6.7 % (0.0-7.0); HEMATOCRIT 31.6 % (42.0-52.0); HEMOGLOBIN 10.1 g/dl (14.0-18.0); LYMPHOCYTES # 1.4 10^3/ul (0.8-2.9); LYMPHOCYTES % 30.6 % (15.0-51.0); MEAN CORPUSCULAR HEMOGLOBIN 27.4 pg (29.0-33.0); MEAN CORPUSCULAR VOLUME 85.6 fl (82.0-101.0); MEAN PLATELET VOLUME 11.2 fl (7.4-10.4); MONOCYTE # 0.6 10^3/ul (0.3-0.9); MONOCYTES % 11.9 % (0.0-11.0); NEUTROPHIL # 2.3 10^3/ul (1.6-7.5); NEUTROPHILS % 49.6 % (39.0-77.0); PLATELET COUNT 72 10^3/UL (140-415); POSITIVE DIFF @See below; RED BLOOD COUNT 3.69 10^6/ul (4.70-6.10); RED CELL DISTRIBUTION WIDTH 13.7 % (11.5-14.5)
[2018-03-08 07:56] LABS: ANION GAP 14 (8-16)
[2018-03-08] MEDS: INSULIN ASPART [NOVOLOG] 3 ML PEN SC ×7 (08:00→21:00)
[2018-03-08 08:04] LABS: BLOOD UREA NITROGEN 50 mg/dl (7-20); CARBON DIOXIDE 30 mmol/L (21-31); CHLORIDE 106 mmol/L (97-110); CREATININE 1.17 mg/dl (0.61-1.24); GLUCOSE 97 mg/dl (70-220); POTASSIUM 4.1 mmol/L (3.5-5.1); SODIUM 146 mmol/L (135-144)
[2018-03-08] MEDS: SALMETEROL/FLUTICASONE 250/50 INHA INH ×2 (09:00→21:00)
[2018-03-08] MEDS: ATENOLOL 25 MG TAB PO ×2 (09:00→21:05)
[2018-03-08] MEDS: HYDROCORTISONE 0.5% 28.35 GM CR TOP ×2 (09:00→21:06)
[2018-03-08] MEDS: BENAZEPRIL 40 MG TAB PO (09:54)
[2018-03-08] MEDS: COLLAGENASE 5 GM (UD JAR) TOP (09:54)
[2018-03-08] MEDS: TIOTROPIUM 18 MCG CAPSULE INHA DEV INH (09:54)
[2018-03-08] MEDS: DULOXETINE 30 MG CAP DR PO (09:54)
[2018-03-08] MEDS: APIXABAN 5 MG TABLET PO ×2 (09:55→21:05)
[2018-03-08] MEDS: AMIODARONE 200 MG TAB PO (09:55)
[2018-03-08] MEDS: FERROUS SULFATE (EC) 325 MG TAB PO (09:55)
[2018-03-08] MEDS: AMLODIPINE 10 MG TAB PO (09:56)
[2018-03-08] MEDS: BENAZEPRIL 20 MG TAB PO (21:05)
[2018-03-08] MEDS: INSULIN GLARGINE [LANtus] 3 ML PEN SC (21:08)
[2018-03-09] MEDS: ACCU-CHEK XX (01:10)
[2018-03-09] MEDS: HYDROmorphONE 0.5 MG/0.5 ML SYG IV ×5 (04:21→21:13)
[2018-03-09] MEDS: PANTOPRAZOLE (EC) 40 MG TAB PO (06:00)
[2018-03-09 07:06] LABS: ADD MAN DIFF? NO
[2018-03-09 07:18] LABS: ABNORMAL IP MESSAGE 1; BASOPHILS % 0.7 % (0.0-2.0); EOSINOPHILS # 0.3 10^3/ul (0.0-0.5); EOSINOPHILS % 6.7 % (0.0-7.0); HEMATOCRIT 29.7 % (42.0-52.0); HEMOGLOBIN 9.3 g/dl (14.0-18.0); LYMPHOCYTES # 1.2 10^3/ul (0.8-2.9); LYMPHOCYTES % 26.7 % (15.0-51.0); MEAN CORPUSCULAR HEMOGLOBIN 27.2 pg (29.0-33.0); MEAN CORPUSCULAR HGB CONC 31.3 g/dl (32.0-37.0); MEAN CORPUSCULAR VOLUME 86.8 fl (82.0-101.0); MEAN PLATELET VOLUME 11.8 fl (7.4-10.4); MONOCYTE # 0.5 10^3/ul (0.3-0.9); MONOCYTES % 11.9 % (0.0-11.0); NEUTROPHIL # 2.3 10^3/ul (1.6-7.5); NEUTROPHILS % 53.1 % (39.0-77.0); PLATELET COUNT 57 10^3/UL (140-415); POSITIVE DIFF @See below; RED BLOOD COUNT 3.42 10^6/ul (4.70-6.10); RED CELL DISTRIBUTION WIDTH 13.6 % (11.5-14.5)
[2018-03-09 07:18] LABS: WHITE BLOOD COUNT 4.3 10^3/ul (4.8-10.8)
[2018-03-09 07:44] LABS: ANION GAP 14 (8-16); BLOOD UREA NITROGEN 57 mg/dl (7-20); CALCIUM 8.9 mg/dl (8.4-10.2); CARBON DIOXIDE 28 mmol/L (21-31); CHLORIDE 108 mmol/L (97-110); CREATININE 1.07 mg/dl (0.61-1.24); GLUCOSE 97 mg/dl (70-220); POTASSIUM 4.2 mmol/L (3.5-5.1); SODIUM 146 mmol/L (135-144)
[2018-03-09] MEDS: INSULIN ASPART [NOVOLOG] 3 ML PEN SC ×7 (08:00→21:00)
[2018-03-09] MEDS: COLLAGENASE 5 GM (UD JAR) TOP (09:00)
[2018-03-09] MEDS: HYDROCORTISONE 0.5% 28.35 GM CR TOP ×2 (09:00→21:22)
[2018-03-09] MEDS: SALMETEROL/FLUTICASONE 250/50 INHA INH (09:00)
[2018-03-09] MEDS: AMIODARONE 200 MG TAB PO (09:00)
[2018-03-09] MEDS: ATENOLOL 25 MG TAB PO ×2 (09:00→21:29)
[2018-03-09] MEDS: APIXABAN 5 MG TABLET PO (09:52)
[2018-03-09] MEDS: TIOTROPIUM 18 MCG CAPSULE INHA DEV INH (09:53)
[2018-03-09] MEDS: DULOXETINE 30 MG CAP DR PO (09:54)
[2018-03-09] MEDS: FUROSEMIDE 20 MG TAB PO (09:56)
[2018-03-09] MEDS: BENAZEPRIL 40 MG TAB PO (09:56)
[2018-03-09] MEDS: FERROUS SULFATE (EC) 325 MG TAB PO (09:56)
[2018-03-09] MEDS: AMLODIPINE 10 MG TAB PO (09:56)
[2018-03-09] MEDS ORDERED: GLUCOSE GEL 15 GRAM TUBE BUCCAL (18:15)
[2018-03-09] MEDS ORDERED: GLUCAGON 1 MG INJ IM (18:15)
[2018-03-09] MEDS ORDERED: GLUCOSE GEL 15 GRAM TUBE PO ×2 (18:15)
[2018-03-09] MEDS ORDERED: (Nursing Note) XX (18:30)
[2018-03-09] MEDS ORDERED: METOPROLOL 5 MG INJ IV (18:30)
[2018-03-09] MEDS: BENAZEPRIL 20 MG TAB PO (21:23)
[2018-03-09] MEDS ORDERED: ONDANSETRON 4 MG INJ IV (21:30)
[2018-03-09] MEDS: INSULIN GLARGINE [LANtus] 3 ML PEN SC (21:33)
[2018-03-10] MEDS: ACCU-CHEK XX (01:02)
[2018-03-10] MEDS: HYDROmorphONE 0.5 MG/0.5 ML SYG IV ×6 (01:16→21:06)
[2018-03-10] MEDS: PANTOPRAZOLE (EC) 40 MG TAB PO (05:22)
[2018-03-10] MEDS: FUROSEMIDE 20 MG TAB PO (05:23)
[2018-03-10 06:29] LABS: ADD MAN DIFF? NO
[2018-03-10 06:34] LABS: ABNORMAL IP MESSAGE 1; BASOPHILS % 0.9 % (0.0-2.0); EOSINOPHILS # 0.3 10^3/ul (0.0-0.5); EOSINOPHILS % 6.4 % (0.0-7.0); HEMATOCRIT 28.7 % (42.0-52.0); HEMOGLOBIN 8.9 g/dl (14.0-18.0); LYMPHOCYTES # 1.1 10^3/ul (0.8-2.9); LYMPHOCYTES % 25.3 % (15.0-51.0); MEAN CORPUSCULAR HEMOGLOBIN 26.7 pg (29.0-33.0); MEAN CORPUSCULAR VOLUME 86.2 fl (82.0-101.0); MEAN PLATELET VOLUME 11.8 fl (7.4-10.4); MONOCYTE # 0.5 10^3/ul (0.3-0.9); MONOCYTES % 11.1 % (0.0-11.0); NEUTROPHIL # 2.5 10^3/ul (1.6-7.5); NEUTROPHILS % 55.6 % (39.0-77.0); PLATELET COUNT 62 10^3/UL (140-415); POSITIVE DIFF @See below; RED BLOOD COUNT 3.33 10^6/ul (4.70-6.10); RED CELL DISTRIBUTION WIDTH 13.8 % (11.5-14.5)
[2018-03-10 06:34] LABS: WHITE BLOOD COUNT 4.5 10^3/ul (4.8-10.8)
[2018-03-10 06:59] LABS: ANION GAP 11 (8-16); BLOOD UREA NITROGEN 61 mg/dl (7-20); CALCIUM 8.8 mg/dl (8.4-10.2); CARBON DIOXIDE 29 mmol/L (21-31); CHLORIDE 109 mmol/L (97-110); CREATININE 0.91 mg/dl (0.61-1.24); GLUCOSE 111 mg/dl (70-220); POTASSIUM 4.2 mmol/L (3.5-5.1); SODIUM 145 mmol/L (135-144)
[2018-03-10] MEDS: INSULIN ASPART [NOVOLOG] 3 ML PEN SC ×7 (08:10→21:00)
[2018-03-10] MEDS: FERROUS SULFATE (EC) 325 MG TAB PO (08:17)
[2018-03-10] MEDS: TIOTROPIUM 18 MCG CAPSULE INHA DEV INH (08:18)
[2018-03-10] MEDS: FLUTICASONE/VILANTEROL 100-25 INH (08:18)
[2018-03-10] MEDS: DULOXETINE 30 MG CAP DR PO (08:18)
[2018-03-10] MEDS: AMIODARONE 200 MG TAB PO (08:19)
[2018-03-10] MEDS: ATENOLOL 25 MG TAB PO ×2 (08:19→20:47)
[2018-03-10] MEDS: BENAZEPRIL 40 MG TAB PO (08:19)
[2018-03-10] MEDS: AMLODIPINE 10 MG TAB PO (09:07)
[2018-03-10] MEDS: COLLAGENASE 5 GM (UD JAR) TOP (09:11)
[2018-03-10] MEDS: HYDROCORTISONE 0.5% 28.35 GM CR TOP ×2 (13:17→20:48)
[2018-03-10] MEDS: INSULIN GLARGINE [LANtus] 3 ML PEN SC (20:18)
[2018-03-10] MEDS: BENAZEPRIL 20 MG TAB PO (20:47)
[2018-03-11] MEDS: HYDROmorphONE 0.5 MG/0.5 ML SYG IV ×6 (01:16→21:47)
[2018-03-11] MEDS: ACCU-CHEK XX (02:00)
[2018-03-11] MEDS: PANTOPRAZOLE (EC) 40 MG TAB PO (05:35)
[2018-03-11] MEDS: FUROSEMIDE 20 MG TAB PO (05:41)
[2018-03-11 06:25] LABS: ADD MAN DIFF? NO
[2018-03-11 06:39] LABS: WHITE BLOOD COUNT 4.1 10^3/ul (4.8-10.8)
[2018-03-11 06:39] LABS: ABNORMAL IP MESSAGE 1; BASOPHILS % 0.7 % (0.0-2.0); EOSINOPHILS # 0.2 10^3/ul (0.0-0.5); EOSINOPHILS % 5.7 % (0.0-7.0); HEMATOCRIT 28.9 % (42.0-52.0); HEMOGLOBIN 9.4 g/dl (14.0-18.0); LYMPHOCYTES # 1.2 10^3/ul (0.8-2.9); LYMPHOCYTES % 29.4 % (15.0-51.0); MEAN CORPUSCULAR HEMOGLOBIN 28.1 pg (29.0-33.0); MEAN CORPUSCULAR HGB CONC 32.5 g/dl (32.0-37.0); MEAN CORPUSCULAR VOLUME 86.5 fl (82.0-101.0); MONOCYTE # 0.4 10^3/ul (0.3-0.9); MONOCYTES % 10.4 % (0.0-11.0); NEUTROPHIL # 2.2 10^3/ul (1.6-7.5); NEUTROPHILS % 53.1 % (39.0-77.0); PLATELET COUNT 63 10^3/UL (140-415); POSITIVE DIFF @See below; RED BLOOD COUNT 3.34 10^6/ul (4.70-6.10)
[2018-03-11 07:24] LABS: ANION GAP 8 (8-16); BLOOD UREA NITROGEN 56 mg/dl (7-20); CALCIUM 8.8 mg/dl (8.4-10.2); CARBON DIOXIDE 28 mmol/L (21-31); CHLORIDE 108 mmol/L (97-110); GLUCOSE 150 mg/dl (70-220); POTASSIUM 4.1 mmol/L (3.5-5.1); SODIUM 140 mmol/L (135-144)
[2018-03-11] MEDS: INSULIN ASPART [NOVOLOG] 3 ML PEN SC ×7 (07:48→20:45)
[2018-03-11] MEDS: DULOXETINE 30 MG CAP DR PO (08:32)
[2018-03-11] MEDS: FERROUS SULFATE (EC) 325 MG TAB PO (08:32)
[2018-03-11] MEDS: AMIODARONE 200 MG TAB PO (08:33)
[2018-03-11] MEDS: AMLODIPINE 10 MG TAB PO (08:33)
[2018-03-11] MEDS: BENAZEPRIL 40 MG TAB PO (08:33)
[2018-03-11] MEDS: ATENOLOL 25 MG TAB PO ×2 (08:34→20:41)
[2018-03-11] MEDS: HYDROCORTISONE 0.5% 28.35 GM CR TOP ×2 (08:34→20:47)
[2018-03-11] MEDS: COLLAGENASE 5 GM (UD JAR) TOP (08:34)
[2018-03-11] MEDS: FLUTICASONE/VILANTEROL 100-25 INH (08:35)
[2018-03-11] MEDS: TIOTROPIUM 18 MCG CAPSULE INHA DEV INH (09:55)
[2018-03-11 15:19] LABS: RHEUMATOID FACTOR NEGATIVE (NEGATIVE)
[2018-03-11 16:31] LABS: HEPARIN INDUCED PLATELET AB NEGATIVE (NEGATIVE)
[2018-03-11] MEDS: BENAZEPRIL 20 MG TAB PO (20:41)
[2018-03-11] MEDS: INSULIN GLARGINE [LANtus] 3 ML PEN SC (20:46)
[2018-03-12] MEDS: ACCU-CHEK XX (02:00)
[2018-03-12] MEDS: HYDROmorphONE 0.5 MG/0.5 ML SYG IV ×5 (02:03→20:51)
[2018-03-12] MEDS: PANTOPRAZOLE (EC) 40 MG TAB PO (05:56)
[2018-03-12] MEDS: FUROSEMIDE 20 MG TAB PO (05:56)
[2018-03-12 06:13] LABS: ADD MAN DIFF? NO
[2018-03-12 06:22] LABS: WHITE BLOOD COUNT 4.1 10^3/ul (4.8-10.8)
[2018-03-12 06:22] LABS: ABNORMAL IP MESSAGE 1; BASOPHILS % 0.7 % (0.0-2.0); EOSINOPHILS # 0.3 10^3/ul (0.0-0.5); EOSINOPHILS % 7.5 % (0.0-7.0); HEMATOCRIT 29.4 % (42.0-52.0); HEMOGLOBIN 9.1 g/dl (14.0-18.0); LYMPHOCYTES # 1.1 10^3/ul (0.8-2.9); LYMPHOCYTES % 25.5 % (15.0-51.0); MEAN CORPUSCULAR HEMOGLOBIN 26.8 pg (29.0-33.0); MEAN CORPUSCULAR VOLUME 86.7 fl (82.0-101.0); MEAN PLATELET VOLUME 12.3 fl (7.4-10.4); MONOCYTE # 0.4 10^3/ul (0.3-0.9); MONOCYTES % 10.7 % (0.0-11.0); NEUTROPHIL # 2.2 10^3/ul (1.6-7.5); NEUTROPHILS % 54.6 % (39.0-77.0); PLATELET COUNT 67 10^3/UL (140-415); POSITIVE DIFF @See below; RED BLOOD COUNT 3.39 10^6/ul (4.70-6.10)
[2018-03-12 06:44] LABS: ANION GAP 11 (8-16); BLOOD UREA NITROGEN 52 mg/dl (7-20); CALCIUM 9.2 mg/dl (8.4-10.2); CARBON DIOXIDE 28 mmol/L (21-31); CHLORIDE 109 mmol/L (97-110); CREATININE 1.05 mg/dl (0.61-1.24); GLUCOSE 131 mg/dl (70-220); POTASSIUM 4.1 mmol/L (3.5-5.1); SODIUM 144 mmol/L (135-144)
[2018-03-12] MEDS: INSULIN ASPART [NOVOLOG] 3 ML PEN SC ×7 (07:46→21:00)
[2018-03-12] MEDS: HYDROCORTISONE 0.5% 28.35 GM CR TOP ×2 (08:58→20:52)
[2018-03-12] MEDS: COLLAGENASE 5 GM (UD JAR) TOP (08:58)
[2018-03-12] MEDS: DULOXETINE 30 MG CAP DR PO (08:58)
[2018-03-12] MEDS: FERROUS SULFATE (EC) 325 MG TAB PO (08:58)
[2018-03-12] MEDS: BENAZEPRIL 40 MG TAB PO (08:59)
[2018-03-12] MEDS: AMLODIPINE 10 MG TAB PO (09:01)
[2018-03-12] MEDS: AMIODARONE 200 MG TAB PO (09:02)
[2018-03-12] MEDS: TIOTROPIUM 18 MCG CAPSULE INHA DEV INH (09:02)
[2018-03-12] MEDS: ATENOLOL 25 MG TAB PO ×2 (09:02→21:25)
[2018-03-12] MEDS: FLUTICASONE/VILANTEROL 100-25 INH (09:02)
[2018-03-12] MEDS: INSULIN GLARGINE [LANtus] 3 ML PEN SC (21:01)
[2018-03-12] MEDS: BENAZEPRIL 20 MG TAB PO (21:25)
[2018-03-13] MEDS: HYDROmorphONE 0.5 MG/0.5 ML SYG IV ×6 (00:58→21:01)
[2018-03-13] MEDS: ACCU-CHEK XX (02:00)
[2018-03-13] MEDS: PANTOPRAZOLE (EC) 40 MG TAB PO (05:36)
[2018-03-13] MEDS: FUROSEMIDE 20 MG TAB PO (05:37)
[2018-03-13 05:43] LABS: ADD MAN DIFF? NO
[2018-03-13 05:47] LABS: ABNORMAL IP MESSAGE 1; BASOPHILS % 0.7 % (0.0-2.0); EOSINOPHILS # 0.3 10^3/ul (0.0-0.5); EOSINOPHILS % 5.9 % (0.0-7.0); HEMOGLOBIN 8.9 g/dl (14.0-18.0); LYMPHOCYTES # 1.2 10^3/ul (0.8-2.9); LYMPHOCYTES % 27.4 % (15.0-51.0); MEAN CORPUSCULAR HEMOGLOBIN 27.4 pg (29.0-33.0); MEAN CORPUSCULAR HGB CONC 31.8 g/dl (32.0-37.0); MEAN CORPUSCULAR VOLUME 86.2 fl (82.0-101.0); MEAN PLATELET VOLUME 11.9 fl (7.4-10.4); MONOCYTE # 0.4 10^3/ul (0.3-0.9); NEUTROPHIL # 2.4 10^3/ul (1.6-7.5); NEUTROPHILS % 55.1 % (39.0-77.0); PLATELET COUNT 55 10^3/UL (140-415); POSITIVE DIFF @See below; RED BLOOD COUNT 3.25 10^6/ul (4.70-6.10); RED CELL DISTRIBUTION WIDTH 13.9 % (11.5-14.5)
[2018-03-13 05:47] LABS: WHITE BLOOD COUNT 4.4 10^3/ul (4.8-10.8)
[2018-03-13] MEDS: INSULIN ASPART [NOVOLOG] 3 ML PEN SC ×7 (07:52→21:00)
[2018-03-13] MEDS: FERROUS SULFATE (EC) 325 MG TAB PO (08:52)
[2018-03-13] MEDS: DULOXETINE 30 MG CAP DR PO (08:52)
[2018-03-13] MEDS: AMLODIPINE 10 MG TAB PO (08:53)
[2018-03-13] MEDS: ATENOLOL 25 MG TAB PO ×2 (08:53→21:00)
[2018-03-13] MEDS: AMIODARONE 200 MG TAB PO (08:54)
[2018-03-13] MEDS: FLUTICASONE/VILANTEROL 100-25 INH (08:56)
[2018-03-13] MEDS: BENAZEPRIL 40 MG TAB PO (08:56)
[2018-03-13] MEDS: TIOTROPIUM 18 MCG CAPSULE INHA DEV INH (09:00)
[2018-03-13] MEDS: COLLAGENASE 5 GM (UD JAR) TOP (09:01)
[2018-03-13] MEDS: HYDROCORTISONE 0.5% 28.35 GM CR TOP ×2 (09:01→21:08)
[2018-03-13 10:37] LABS: ANION GAP 10 (8-16); BLOOD UREA NITROGEN 51 mg/dl (7-20); CALCIUM 9.1 mg/dl (8.4-10.2); CARBON DIOXIDE 28 mmol/L (21-31); CHLORIDE 109 mmol/L (97-110); CREATININE 0.95 mg/dl (0.61-1.24); GLUCOSE 88 mg/dl (70-220); SODIUM 143 mmol/L (135-144)
[2018-03-13 18:06] LABS: ANA SCREEN POSITIVE (NEGATIVE)
[2018-03-13 18:51] LABS: ANA PATTERN HOMOGENEOUS
[2018-03-13] MEDS: INSULIN GLARGINE [LANtus] 3 ML PEN SC (21:06)
[2018-03-13] MEDS: BENAZEPRIL 20 MG TAB PO (21:06)
[2018-03-13 23:22] LABS: PLATELET ANTIBODY - IGA NEGATIVE (NEGATIVE); PLATELET ANTIBODY - IGG NEGATIVE (NEGATIVE); PLATELET ANTIBODY - IGM NEGATIVE (NEGATIVE)
[2018-03-14] MEDS: ACCU-CHEK XX (01:26)
[2018-03-14] MEDS: PANTOPRAZOLE (EC) 40 MG TAB PO (05:38)
[2018-03-14] MEDS: FUROSEMIDE 20 MG TAB PO (05:39)
[2018-03-14] MEDS: HYDROmorphONE 0.5 MG/0.5 ML SYG IV ×2 (06:50→10:47)
[2018-03-14] MEDS: INSULIN ASPART [NOVOLOG] 3 ML PEN SC ×7 (07:35→20:17)
[2018-03-14] MEDS: FERROUS SULFATE (EC) 325 MG TAB PO (09:46)
[2018-03-14] MEDS: COLLAGENASE 5 GM (UD JAR) TOP (09:46)
[2018-03-14] MEDS: AMLODIPINE 10 MG TAB PO (09:46)
[2018-03-14] MEDS: TIOTROPIUM 18 MCG CAPSULE INHA DEV INH (09:46)
[2018-03-14] MEDS: BENAZEPRIL 40 MG TAB PO (09:46)
[2018-03-14] MEDS: DULOXETINE 30 MG CAP DR PO (09:46)
[2018-03-14] MEDS: ATENOLOL 25 MG TAB PO ×2 (09:47→20:33)
[2018-03-14] MEDS: AMIODARONE 200 MG TAB PO (09:47)
[2018-03-14] MEDS: FLUTICASONE/VILANTEROL 100-25 INH (09:52)
[2018-03-14] MEDS: HYDROCORTISONE 0.5% 28.35 GM CR TOP ×2 (09:53→20:39)
[2018-03-14] MEDS: HYDROmorphONE 2 MG TAB PO ×2 (14:58→18:54)
[2018-03-14] MEDS: BENAZEPRIL 20 MG TAB PO (20:33)
[2018-03-14] MEDS: SENNA TAB PO (20:33)
[2018-03-14] MEDS: INSULIN GLARGINE [LANtus] 3 ML PEN SC (20:36)
[2018-03-15] MEDS: ACCU-CHEK XX (01:41)
[2018-03-15] MEDS: HYDROmorphONE 2 MG TAB PO ×4 (05:39→20:59)
[2018-03-15] MEDS: FUROSEMIDE 20 MG TAB PO (05:48)
[2018-03-15] MEDS: PANTOPRAZOLE (EC) 40 MG TAB PO (05:48)
[2018-03-15] MEDS: INSULIN ASPART [NOVOLOG] 3 ML PEN SC ×7 (07:35→21:02)
[2018-03-15] MEDS: SENNA TAB PO ×2 (09:22→20:55)
[2018-03-15] MEDS: ATENOLOL 25 MG TAB PO ×2 (09:22→20:56)
[2018-03-15] MEDS: DULOXETINE 30 MG CAP DR PO (09:22)
[2018-03-15] MEDS: FLUTICASONE/VILANTEROL 100-25 INH (09:23)
[2018-03-15] MEDS: BENAZEPRIL 40 MG TAB PO (09:23)
[2018-03-15] MEDS: AMLODIPINE 10 MG TAB PO (09:23)
[2018-03-15] MEDS: FERROUS SULFATE (EC) 325 MG TAB PO (09:23)
[2018-03-15] MEDS: TIOTROPIUM 18 MCG CAPSULE INHA DEV INH (09:23)
[2018-03-15] MEDS: AMIODARONE 200 MG TAB PO (09:23)
[2018-03-15] MEDS: COLLAGENASE 5 GM (UD JAR) TOP (09:24)
[2018-03-15] MEDS: HYDROCORTISONE 0.5% 28.35 GM CR TOP ×2 (09:28→21:04)
[2018-03-15 17:32] LABS: TROPONIN-I < 0.010 ng/ml (0.000-0.120)
[2018-03-15 18:46] LABS: TROPONIN-I < 0.010 ng/ml (0.000-0.120)
[2018-03-15] MEDS: BENAZEPRIL 20 MG TAB PO (20:56)
[2018-03-15] MEDS: INSULIN GLARGINE [LANtus] 3 ML PEN SC (21:02)
[2018-03-16] MEDS: ACCU-CHEK XX (02:00)
[2018-03-16] MEDS: ALPRAZOLAM 0.25 MG TAB PO (02:41)
[2018-03-16 05:53] LABS: ADD MAN DIFF? NO
[2018-03-16 05:56] LABS: ABNORMAL IP MESSAGE 1; BASOPHILS % 0.9 % (0.0-2.0); EOSINOPHILS # 0.2 10^3/ul (0.0-0.5); EOSINOPHILS % 5.2 % (0.0-7.0); HEMATOCRIT 29.5 % (42.0-52.0); HEMOGLOBIN 9.3 g/dl (14.0-18.0); LYMPHOCYTES # 1.1 10^3/ul (0.8-2.9); MEAN CORPUSCULAR HEMOGLOBIN 27.1 pg (29.0-33.0); MEAN CORPUSCULAR HGB CONC 31.5 g/dl (32.0-37.0); MEAN PLATELET VOLUME 11.7 fl (7.4-10.4); MONOCYTE # 0.5 10^3/ul (0.3-0.9); NEUTROPHIL # 2.7 10^3/ul (1.6-7.5); NEUTROPHILS % 58.8 % (39.0-77.0); PLATELET COUNT 61 10^3/UL (140-415); POSITIVE DIFF @See below; RED BLOOD COUNT 3.43 10^6/ul (4.70-6.10); RED CELL DISTRIBUTION WIDTH 13.8 % (11.5-14.5)
[2018-03-16 05:56] LABS: WHITE BLOOD COUNT 4.6 10^3/ul (4.8-10.8)
[2018-03-16] MEDS: FUROSEMIDE 20 MG TAB PO (06:06)
[2018-03-16] MEDS: PANTOPRAZOLE (EC) 40 MG TAB PO (06:07)
[2018-03-16 06:23] LABS: ALANINE AMINOTRANSFERASE 54 IU/L (13-69); ALBUMIN 3.3 g/dl (3.3-4.9); ALKALINE PHOSPHATASE 297 IU/L (42-121); ANION GAP 8 (8-16); ASPARTATE AMINO TRANSFERASE 44 IU/L (15-46); BILIRUBIN,INDIRECT 0.9 mg/dl (0-1.1); BILIRUBIN,TOTAL 0.9 mg/dl (0.2-1.3); BLOOD UREA NITROGEN 46 mg/dl (7-20); CALCIUM 8.9 mg/dl (8.4-10.2); CARBON DIOXIDE 27 mmol/L (21-31); CHLORIDE 110 mmol/L (97-110); CREATININE 0.94 mg/dl (0.61-1.24); GLUCOSE 106 mg/dl (70-220); POTASSIUM 4.3 mmol/L (3.5-5.1); SODIUM 141 mmol/L (135-144)
[2018-03-16 06:25] LABS: INR 1.18; PROTIME 15.2 Sec (11.9-14.9); PT RATIO 1.2
[2018-03-16 06:26] LABS: PARTIAL THROMBOPLASTIN TIME 37.6 Sec (25.0-35.0)
[2018-03-16] MEDS: INSULIN ASPART [NOVOLOG] 3 ML PEN SC ×8 (08:00→21:30)
[2018-03-16] MEDS: DULOXETINE 30 MG CAP DR PO (08:52)
[2018-03-16] MEDS: AMLODIPINE 10 MG TAB PO (08:53)
[2018-03-16] MEDS: ATENOLOL 25 MG TAB PO ×2 (08:53→21:27)
[2018-03-16] MEDS: SENNA TAB PO ×2 (08:54→21:27)
[2018-03-16] MEDS: FERROUS SULFATE (EC) 325 MG TAB PO (08:54)
[2018-03-16] MEDS: AMIODARONE 200 MG TAB PO (08:54)
[2018-03-16] MEDS: BENAZEPRIL 40 MG TAB PO (08:54)
[2018-03-16] MEDS: COLLAGENASE 5 GM (UD JAR) TOP (08:55)
[2018-03-16] MEDS: FLUTICASONE/VILANTEROL 100-25 INH (08:55)
[2018-03-16] MEDS: TIOTROPIUM 18 MCG CAPSULE INHA DEV INH (08:55)
[2018-03-16] MEDS: HYDROCORTISONE 0.5% 28.35 GM CR TOP ×2 (08:57→21:37)
[2018-03-16] MEDS: HYDROmorphONE 2 MG TAB PO ×3 (13:58→23:24)
[2018-03-16] MEDS: BENAZEPRIL 20 MG TAB PO (21:27)
[2018-03-16] MEDS: INSULIN GLARGINE [LANtus] 3 ML PEN SC (21:29)
[2018-03-17] MEDS: ALPRAZOLAM 0.25 MG TAB PO ×2 (01:31→14:44)
[2018-03-17] MEDS: ACCU-CHEK XX (01:42)
[2018-03-17] MEDS: PANTOPRAZOLE (EC) 40 MG TAB PO (06:00)
[2018-03-17] MEDS: INSULIN ASPART [NOVOLOG] 3 ML PEN SC ×7 (07:35→21:00)
[2018-03-17] MEDS: FLUTICASONE/VILANTEROL 100-25 INH (08:27)
[2018-03-17] MEDS: SENNA TAB PO ×2 (08:28→21:00)
[2018-03-17] MEDS: FERROUS SULFATE (EC) 325 MG TAB PO (08:28)
[2018-03-17] MEDS: DULOXETINE 30 MG CAP DR PO (08:28)
[2018-03-17] MEDS: BENAZEPRIL 40 MG TAB PO ×2 (08:29→22:33)
[2018-03-17] MEDS: HYDROmorphONE 2 MG TAB PO ×2 (08:29→22:33)
[2018-03-17] MEDS: AMLODIPINE 10 MG TAB PO (08:30)
[2018-03-17] MEDS: ATENOLOL 25 MG TAB PO ×2 (08:30→22:33)
[2018-03-17] MEDS: FUROSEMIDE 20 MG TAB PO (08:31)
[2018-03-17] MEDS: AMIODARONE 200 MG TAB PO (08:55)
[2018-03-17] MEDS: TIOTROPIUM 18 MCG CAPSULE INHA DEV INH (08:55)
[2018-03-17 09:41] LABS: ADD MAN DIFF? NO
[2018-03-17 09:48] LABS: ABNORMAL IP MESSAGE 1; BASOPHILS % 0.9 % (0.0-2.0); EOSINOPHILS # 0.3 10^3/ul (0.0-0.5); EOSINOPHILS % 5.8 % (0.0-7.0); HEMATOCRIT 30.3 % (42.0-52.0); HEMOGLOBIN 9.6 g/dl (14.0-18.0); LYMPHOCYTES # 1.1 10^3/ul (0.8-2.9); LYMPHOCYTES % 25.3 % (15.0-51.0); MEAN CORPUSCULAR HGB CONC 31.7 g/dl (32.0-37.0); MEAN CORPUSCULAR VOLUME 85.1 fl (82.0-101.0); MEAN PLATELET VOLUME 11.2 fl (7.4-10.4); MONOCYTE # 0.4 10^3/ul (0.3-0.9); MONOCYTES % 10.1 % (0.0-11.0); NEUTROPHIL # 2.5 10^3/ul (1.6-7.5); NEUTROPHILS % 57.2 % (39.0-77.0); PLATELET COUNT 53 10^3/UL (140-415); POSITIVE DIFF @See below; RED BLOOD COUNT 3.56 10^6/ul (4.70-6.10); RED CELL DISTRIBUTION WIDTH 14.1 % (11.5-14.5)
[2018-03-17 09:48] LABS: WHITE BLOOD COUNT 4.3 10^3/ul (4.8-10.8)
[2018-03-17 10:09] LABS: ANION GAP 11 (8-16); BLOOD UREA NITROGEN 38 mg/dl (7-20); CALCIUM 9.1 mg/dl (8.4-10.2); CARBON DIOXIDE 29 mmol/L (21-31); CHLORIDE 105 mmol/L (97-110); CREATININE 0.99 mg/dl (0.61-1.24); GLUCOSE 99 mg/dl (70-220); SODIUM 141 mmol/L (135-144)
[2018-03-17] MEDS: HYDROCORTISONE 0.5% 28.35 GM CR TOP ×2 (12:20→22:47)
[2018-03-17] MEDS: COLLAGENASE 5 GM (UD JAR) TOP (12:20)
[2018-03-17] MEDS: INSULIN GLARGINE [LANtus] 3 ML PEN SC (22:36)
[2018-03-18] MEDS: ALPRAZOLAM 0.25 MG TAB PO ×2 (00:27→16:01)
[2018-03-18] MEDS: ACCU-CHEK XX (02:00)
[2018-03-18] MEDS: PANTOPRAZOLE (EC) 40 MG TAB PO (06:00)
[2018-03-18 07:01] LABS: ADD MAN DIFF? NO
[2018-03-18 07:02] LABS: ABNORMAL IP MESSAGE 1; BASOPHILS % 0.8 % (0.0-2.0); EOSINOPHILS # 0.2 10^3/ul (0.0-0.5); EOSINOPHILS % 5.7 % (0.0-7.0); HEMATOCRIT 28.3 % (42.0-52.0); LYMPHOCYTES # 1.2 10^3/ul (0.8-2.9); LYMPHOCYTES % 30.1 % (15.0-51.0); MEAN CORPUSCULAR HEMOGLOBIN 27.2 pg (29.0-33.0); MEAN CORPUSCULAR HGB CONC 31.8 g/dl (32.0-37.0); MEAN CORPUSCULAR VOLUME 85.5 fl (82.0-101.0); MEAN PLATELET VOLUME 10.3 fl (7.4-10.4); MONOCYTE # 0.4 10^3/ul (0.3-0.9); MONOCYTES % 10.4 % (0.0-11.0); NEUTROPHILS % 52.2 % (39.0-77.0); PLATELET COUNT 43 10^3/UL (140-415); POSITIVE DIFF @See below; RED BLOOD COUNT 3.31 10^6/ul (4.70-6.10); RED CELL DISTRIBUTION WIDTH 13.6 % (11.5-14.5)
[2018-03-18 07:02] LABS: WHITE BLOOD COUNT 3.9 10^3/ul (4.8-10.8)
[2018-03-18 07:30] LABS: ANION GAP 8 (8-16); BLOOD UREA NITROGEN 45 mg/dl (7-20); CALCIUM 8.8 mg/dl (8.4-10.2); CARBON DIOXIDE 30 mmol/L (21-31); CHLORIDE 109 mmol/L (97-110); CREATININE 1.25 mg/dl (0.61-1.24); GLUCOSE 102 mg/dl (70-220); POTASSIUM 4.5 mmol/L (3.5-5.1); SODIUM 142 mmol/L (135-144)
[2018-03-18] MEDS: INSULIN ASPART [NOVOLOG] 3 ML PEN SC ×7 (08:00→20:47)
[2018-03-18] MEDS: FERROUS SULFATE (EC) 325 MG TAB PO (08:02)
[2018-03-18] MEDS: DULOXETINE 30 MG CAP DR PO (08:02)
[2018-03-18] MEDS: SENNA TAB PO ×2 (08:02→20:47)
[2018-03-18] MEDS: FLUTICASONE/VILANTEROL 100-25 INH (08:03)
[2018-03-18] MEDS: TIOTROPIUM 18 MCG CAPSULE INHA DEV INH (08:03)
[2018-03-18] MEDS: AMLODIPINE 10 MG TAB PO (08:04)
[2018-03-18] MEDS: AMIODARONE 200 MG TAB PO (08:04)
[2018-03-18] MEDS: FUROSEMIDE 20 MG TAB PO (08:05)
[2018-03-18] MEDS: BENAZEPRIL 40 MG TAB PO ×2 (08:05→20:42)
[2018-03-18] MEDS: ATENOLOL 25 MG TAB PO ×2 (08:05→20:43)
[2018-03-18] MEDS: HYDROmorphONE 2 MG TAB PO ×2 (15:02→20:44)
[2018-03-18] MEDS: HYDROCORTISONE 0.5% 28.35 GM CR TOP ×2 (17:00→20:48)
[2018-03-18] MEDS: COLLAGENASE 5 GM (UD JAR) TOP (17:00)
[2018-03-18] MEDS: INSULIN GLARGINE [LANtus] 3 ML PEN SC (20:46)
[2018-03-19] MEDS: ACCU-CHEK XX (02:00)
[2018-03-19] MEDS: FUROSEMIDE 20 MG TAB PO (05:04)
[2018-03-19] MEDS: PANTOPRAZOLE (EC) 40 MG TAB PO (05:04)
[2018-03-19] MEDS: HYDROmorphONE 2 MG TAB PO ×3 (05:05→20:38)
[2018-03-19 05:38] LABS: ADD MAN DIFF? NO
[2018-03-19 05:51] LABS: ABNORMAL IP MESSAGE 1; BASOPHILS % 0.6 % (0.0-2.0); EOSINOPHILS # 0.3 10^3/ul (0.0-0.5); EOSINOPHILS % 5.4 % (0.0-7.0); HEMATOCRIT 30.4 % (42.0-52.0); HEMOGLOBIN 9.5 g/dl (14.0-18.0); LYMPHOCYTES # 1.3 10^3/ul (0.8-2.9); LYMPHOCYTES % 28.8 % (15.0-51.0); MEAN CORPUSCULAR HEMOGLOBIN 26.8 pg (29.0-33.0); MEAN CORPUSCULAR HGB CONC 31.3 g/dl (32.0-37.0); MEAN CORPUSCULAR VOLUME 85.6 fl (82.0-101.0); MEAN PLATELET VOLUME 11.3 fl (7.4-10.4); MONOCYTE # 0.4 10^3/ul (0.3-0.9); MONOCYTES % 9.5 % (0.0-11.0); NEUTROPHIL # 2.6 10^3/ul (1.6-7.5); NEUTROPHILS % 55.3 % (39.0-77.0); PLATELET COUNT 49 10^3/UL (140-415); POSITIVE DIFF @See below; RED BLOOD COUNT 3.55 10^6/ul (4.70-6.10); RED CELL DISTRIBUTION WIDTH 13.4 % (11.5-14.5)
[2018-03-19 05:51] LABS: WHITE BLOOD COUNT 4.7 10^3/ul (4.8-10.8)
[2018-03-19 06:15] LABS: ANION GAP 11 (8-16); BLOOD UREA NITROGEN 44 mg/dl (7-20); CARBON DIOXIDE 31 mmol/L (21-31); CHLORIDE 104 mmol/L (97-110); CREATININE 1.03 mg/dl (0.61-1.24); GLUCOSE 111 mg/dl (70-220); POTASSIUM 4.5 mmol/L (3.5-5.1); SODIUM 141 mmol/L (135-144)
[2018-03-19] MEDS: INSULIN ASPART [NOVOLOG] 3 ML PEN SC ×7 (08:00→20:24)
[2018-03-19] MEDS: COLLAGENASE 5 GM (UD JAR) TOP (08:09)
[2018-03-19] MEDS: DULOXETINE 30 MG CAP DR PO (08:10)
[2018-03-19] MEDS: TIOTROPIUM 18 MCG CAPSULE INHA DEV INH (08:10)
[2018-03-19] MEDS: FERROUS SULFATE (EC) 325 MG TAB PO (08:10)
[2018-03-19] MEDS: SENNA TAB PO ×2 (08:10→20:25)
[2018-03-19] MEDS: ATENOLOL 25 MG TAB PO ×2 (08:11→20:32)
[2018-03-19] MEDS: AMIODARONE 200 MG TAB PO (08:11)
[2018-03-19] MEDS: AMLODIPINE 10 MG TAB PO (08:11)
[2018-03-19] MEDS: FLUTICASONE/VILANTEROL 100-25 INH (08:11)
[2018-03-19] MEDS: BENAZEPRIL 40 MG TAB PO ×2 (08:12→20:34)
[2018-03-19] MEDS: HYDROCORTISONE 0.5% 28.35 GM CR TOP ×2 (13:00→20:34)
[2018-03-19] MEDS: ALPRAZOLAM 0.25 MG TAB PO (15:02)
[2018-03-19] MEDS: INSULIN GLARGINE [LANtus] 3 ML PEN SC (20:42)
[2018-03-20] MEDS: ACCU-CHEK XX (02:00)
[2018-03-20] MEDS: HYDROmorphONE 2 MG TAB PO ×2 (02:16→13:18)
[2018-03-20] MEDS: ALPRAZOLAM 0.25 MG TAB PO (03:37)
[2018-03-20] MEDS: PANTOPRAZOLE (EC) 40 MG TAB PO (05:38)
[2018-03-20] MEDS: FUROSEMIDE 20 MG TAB PO (05:40)
[2018-03-20 06:10] LABS: ADD MAN DIFF? NO
[2018-03-20 06:19] LABS: WHITE BLOOD COUNT 4.8 10^3/ul (4.8-10.8)
[2018-03-20 06:20] LABS: ABNORMAL IP MESSAGE 1; BASOPHILS % 0.6 % (0.0-2.0); EOSINOPHILS # 0.3 10^3/ul (0.0-0.5); EOSINOPHILS % 6.5 % (0.0-7.0); HEMATOCRIT 30.7 % (42.0-52.0); HEMOGLOBIN 9.5 g/dl (14.0-18.0); LYMPHOCYTES # 1.4 10^3/ul (0.8-2.9); LYMPHOCYTES % 28.3 % (15.0-51.0); MEAN CORPUSCULAR HEMOGLOBIN 26.5 pg (29.0-33.0); MEAN CORPUSCULAR HGB CONC 30.9 g/dl (32.0-37.0); MEAN CORPUSCULAR VOLUME 85.8 fl (82.0-101.0); MEAN PLATELET VOLUME 11.4 fl (7.4-10.4); MONOCYTE # 0.5 10^3/ul (0.3-0.9); MONOCYTES % 9.4 % (0.0-11.0); NEUTROPHIL # 2.6 10^3/ul (1.6-7.5); NEUTROPHILS % 54.4 % (39.0-77.0); PLATELET COUNT 51 10^3/UL (140-415); POSITIVE DIFF @See below; RED BLOOD COUNT 3.58 10^6/ul (4.70-6.10); RED CELL DISTRIBUTION WIDTH 13.6 % (11.5-14.5)
[2018-03-20 06:33] LABS: ANION GAP 9 (8-16); BLOOD UREA NITROGEN 49 mg/dl (7-20); CALCIUM 8.9 mg/dl (8.4-10.2); CARBON DIOXIDE 30 mmol/L (21-31); CHLORIDE 105 mmol/L (97-110); CREATININE 1.12 mg/dl (0.61-1.24); GLUCOSE 185 mg/dl (70-220); POTASSIUM 4.4 mmol/L (3.5-5.1); SODIUM 140 mmol/L (135-144)
[2018-03-20] MEDS: INSULIN ASPART [NOVOLOG] 3 ML PEN SC ×7 (07:48→22:09)
[2018-03-20] MEDS: COLLAGENASE 5 GM (UD JAR) TOP (08:29)
[2018-03-20] MEDS: HYDROCORTISONE 0.5% 28.35 GM CR TOP ×2 (08:30→20:25)
[2018-03-20] MEDS: SENNA TAB PO ×2 (08:30→20:15)
[2018-03-20] MEDS: DULOXETINE 30 MG CAP DR PO (08:30)
[2018-03-20] MEDS: FERROUS SULFATE (EC) 325 MG TAB PO (08:30)
[2018-03-20] MEDS: TIOTROPIUM 18 MCG CAPSULE INHA DEV INH (08:30)
[2018-03-20] MEDS: FLUTICASONE/VILANTEROL 100-25 INH (08:30)
[2018-03-20] MEDS: BENAZEPRIL 40 MG TAB PO ×2 (08:31→20:15)
[2018-03-20] MEDS: AMLODIPINE 10 MG TAB PO (08:31)
[2018-03-20] MEDS: ATENOLOL 25 MG TAB PO ×2 (08:31→20:18)
[2018-03-20] MEDS: AMIODARONE 200 MG TAB PO (08:32)
[2018-03-20 12:58] LABS: ADD MAN DIFF? NO
[2018-03-20 12:59] LABS: ABNORMAL IP MESSAGE 1; BASOPHILS % 0.7 % (0.0-2.0); EOSINOPHILS # 0.3 10^3/ul (0.0-0.5); EOSINOPHILS % 6.3 % (0.0-7.0); HEMATOCRIT 30.9 % (42.0-52.0); HEMOGLOBIN 9.8 g/dl (14.0-18.0); LYMPHOCYTES # 1.3 10^3/ul (0.8-2.9); MEAN CORPUSCULAR HEMOGLOBIN 27.1 pg (29.0-33.0); MEAN CORPUSCULAR HGB CONC 31.7 g/dl (32.0-37.0); MEAN CORPUSCULAR VOLUME 85.4 fl (82.0-101.0); MEAN PLATELET VOLUME 10.7 fl (7.4-10.4); MONOCYTE # 0.5 10^3/ul (0.3-0.9); MONOCYTES % 10.1 % (0.0-11.0); NEUTROPHIL # 2.4 10^3/ul (1.6-7.5); NEUTROPHILS % 53.2 % (39.0-77.0); PLATELET COUNT 41 10^3/UL (140-415); POSITIVE DIFF @See below; RED BLOOD COUNT 3.62 10^6/ul (4.70-6.10); RED CELL DISTRIBUTION WIDTH 13.6 % (11.5-14.5)
[2018-03-20 12:59] LABS: WHITE BLOOD COUNT 4.5 10^3/ul (4.8-10.8)
[2018-03-20 13:17] LABS: ANION GAP 12 (8-16); BLOOD UREA NITROGEN 45 mg/dl (7-20); CALCIUM 9.1 mg/dl (8.4-10.2); CARBON DIOXIDE 30 mmol/L (21-31); CHLORIDE 104 mmol/L (97-110); CREATININE 1.13 mg/dl (0.61-1.24); GLUCOSE 135 mg/dl (70-220); POTASSIUM 4.5 mmol/L (3.5-5.1); SODIUM 141 mmol/L (135-144)
[2018-03-20] MEDS: INSULIN GLARGINE [LANtus] 3 ML PEN SC (20:22)
[2018-03-21] MEDS: ACCU-CHEK XX ×2 (02:00)
[2018-03-21] MEDS: HYDROmorphONE 2 MG TAB PO (03:28)
[2018-03-21] MEDS: HYDROmorphONE 1 MG/ML SYG IV ×4 (04:37→19:52)
[2018-03-21 05:51] LABS: ADD MAN DIFF? NO
[2018-03-21 05:59] LABS: WHITE BLOOD COUNT 4.2 10^3/ul (4.8-10.8)
[2018-03-21 05:59] LABS: ABNORMAL IP MESSAGE 1; BASOPHILS % 0.7 % (0.0-2.0); EOSINOPHILS # 0.3 10^3/ul (0.0-0.5); EOSINOPHILS % 6.6 % (0.0-7.0); HEMATOCRIT 30.2 % (42.0-52.0); HEMOGLOBIN 9.5 g/dl (14.0-18.0); LYMPHOCYTES # 1.2 10^3/ul (0.8-2.9); LYMPHOCYTES % 27.4 % (15.0-51.0); MEAN CORPUSCULAR HEMOGLOBIN 26.8 pg (29.0-33.0); MEAN CORPUSCULAR HGB CONC 31.5 g/dl (32.0-37.0); MEAN CORPUSCULAR VOLUME 85.3 fl (82.0-101.0); MEAN PLATELET VOLUME 11.5 fl (7.4-10.4); MONOCYTE # 0.4 10^3/ul (0.3-0.9); MONOCYTES % 8.5 % (0.0-11.0); NEUTROPHIL # 2.4 10^3/ul (1.6-7.5); NEUTROPHILS % 56.1 % (39.0-77.0); POSITIVE DIFF @See below; RED BLOOD COUNT 3.54 10^6/ul (4.70-6.10); RED CELL DISTRIBUTION WIDTH 13.5 % (11.5-14.5)
[2018-03-21] MEDS: PANTOPRAZOLE (EC) 40 MG TAB PO (06:12)
[2018-03-21] MEDS: FUROSEMIDE 20 MG TAB PO (06:13)
[2018-03-21 06:33] LABS: ANION GAP 10 (8-16); BLOOD UREA NITROGEN 43 mg/dl (7-20); CALCIUM 9.1 mg/dl (8.4-10.2); CARBON DIOXIDE 30 mmol/L (21-31); CHLORIDE 105 mmol/L (97-110); CREATININE 1.01 mg/dl (0.61-1.24); GLUCOSE 111 mg/dl (70-220); POTASSIUM 4.8 mmol/L (3.5-5.1); SODIUM 140 mmol/L (135-144)
[2018-03-21 06:56] LABS: PLATELET COUNT 43 10^3/UL (140-415)
[2018-03-21] MEDS: FLUTICASONE/VILANTEROL 100-25 INH (08:34)
[2018-03-21] MEDS: FERROUS SULFATE (EC) 325 MG TAB PO (08:34)
[2018-03-21] MEDS: INSULIN ASPART [NOVOLOG] 3 ML PEN SC ×7 (08:35→20:47)
[2018-03-21] MEDS: DULOXETINE 30 MG CAP DR PO (08:36)
[2018-03-21] MEDS: ATENOLOL 25 MG TAB PO ×2 (08:37→20:42)
[2018-03-21] MEDS: AMIODARONE 200 MG TAB PO (08:37)
[2018-03-21] MEDS: AMLODIPINE 10 MG TAB PO (08:38)
[2018-03-21] MEDS: BENAZEPRIL 40 MG TAB PO ×2 (08:38→20:42)
[2018-03-21] MEDS: SENNA TAB PO ×2 (08:44→20:41)
[2018-03-21] MEDS: TIOTROPIUM 18 MCG CAPSULE INHA DEV INH (09:00)
[2018-03-21] MEDS: COLLAGENASE 5 GM (UD JAR) TOP (13:52)
[2018-03-21] MEDS: HYDROCORTISONE 0.5% 28.35 GM CR TOP ×2 (13:52→20:43)
[2018-03-21] MEDS: INSULIN GLARGINE [LANtus] 3 ML PEN SC ×2 (20:00→21:00)
[2018-03-22] MEDS: HYDROmorphONE 1 MG/ML SYG IV ×6 (00:37→21:26)
[2018-03-22] MEDS: ACCU-CHEK XX (01:36)
[2018-03-22] MEDS: PANTOPRAZOLE (EC) 40 MG TAB PO (05:10)
[2018-03-22] MEDS: FUROSEMIDE 20 MG TAB PO (05:11)
[2018-03-22 06:05] LABS: ABNORMAL IP MESSAGE 1; ADD MAN DIFF? NO; BASOPHILS % 0.5 % (0.0-2.0); EOSINOPHILS # 0.3 10^3/ul (0.0-0.5); EOSINOPHILS % 4.7 % (0.0-7.0); HEMATOCRIT 30.4 % (42.0-52.0); HEMOGLOBIN 9.4 g/dl (14.0-18.0); LYMPHOCYTES # 1.3 10^3/ul (0.8-2.9); LYMPHOCYTES % 22.5 % (15.0-51.0); MEAN CORPUSCULAR HEMOGLOBIN 26.5 pg (29.0-33.0); MEAN CORPUSCULAR HGB CONC 30.9 g/dl (32.0-37.0); MEAN CORPUSCULAR VOLUME 85.6 fl (82.0-101.0); MEAN PLATELET VOLUME 11.5 fl (7.4-10.4); MONOCYTE # 0.5 10^3/ul (0.3-0.9); MONOCYTES % 7.9 % (0.0-11.0); NEUTROPHIL # 3.7 10^3/ul (1.6-7.5); NEUTROPHILS % 63.9 % (39.0-77.0); PLATELET COUNT 39 10^3/UL (140-415); POSITIVE DIFF @See below; RED BLOOD COUNT 3.55 10^6/ul (4.70-6.10); RED CELL DISTRIBUTION WIDTH 13.6 % (11.5-14.5)
[2018-03-22 06:05] LABS: WHITE BLOOD COUNT 5.8 10^3/ul (4.8-10.8)
[2018-03-22 07:20] LABS: ANION GAP 10 (8-16); BLOOD UREA NITROGEN 48 mg/dl (7-20); CALCIUM 8.8 mg/dl (8.4-10.2); CARBON DIOXIDE 28 mmol/L (21-31); CHLORIDE 103 mmol/L (97-110); CREATININE 1.23 mg/dl (0.61-1.24); GLUCOSE 178 mg/dl (70-220); POTASSIUM 5.1 mmol/L (3.5-5.1); SODIUM 136 mmol/L (135-144)
[2018-03-22] MEDS: INSULIN ASPART [NOVOLOG] 3 ML PEN SC ×7 (08:00→20:47)
[2018-03-22] MEDS: FLUTICASONE/VILANTEROL 100-25 INH (09:00)
[2018-03-22] MEDS: SENNA TAB PO ×2 (09:21→20:47)
[2018-03-22] MEDS: BENAZEPRIL 40 MG TAB PO ×2 (09:21→20:49)
[2018-03-22] MEDS: AMIODARONE 200 MG TAB PO (09:22)
[2018-03-22] MEDS: ATENOLOL 25 MG TAB PO ×2 (09:22→20:49)
[2018-03-22] MEDS: FERROUS SULFATE (EC) 325 MG TAB PO (09:22)
[2018-03-22] MEDS: AMLODIPINE 10 MG TAB PO (09:22)
[2018-03-22] MEDS: DULOXETINE 30 MG CAP DR PO (09:22)
[2018-03-22] MEDS: COLLAGENASE 5 GM (UD JAR) TOP (09:22)
[2018-03-22] MEDS: HYDROCORTISONE 0.5% 28.35 GM CR TOP ×2 (09:24→20:47)
[2018-03-22] MEDS: TIOTROPIUM 18 MCG CAPSULE INHA DEV INH (09:30)
[2018-03-22 16:19] LABS: HEPATITIS B SURFACE ANTIGEN NEGATIVE (NEGATIVE)
[2018-03-22 16:37] LABS: HEPATITIS B CORE ANTIBODY NEGATIVE (NEGATIVE)
[2018-03-22 16:41] LABS: HEPATITIS C VIRAL ANTIBODY REACTIVE (NEGATIVE)
[2018-03-22] MEDS: INSULIN GLARGINE [LANtus] 3 ML PEN SC (20:51)
[2018-03-23] MEDS: ACCU-CHEK XX (00:43)
[2018-03-23] MEDS: HYDROmorphONE 1 MG/ML SYG IV ×6 (01:32→22:27)
[2018-03-23] MEDS: ALPRAZOLAM 0.25 MG TAB PO (03:49)
[2018-03-23] MEDS: PANTOPRAZOLE (EC) 40 MG TAB PO (05:35)
[2018-03-23] MEDS: FUROSEMIDE 20 MG TAB PO (05:35)
[2018-03-23] MEDS: INSULIN ASPART [NOVOLOG] 3 ML PEN SC ×7 (07:57→20:43)
[2018-03-23] MEDS: TIOTROPIUM 18 MCG CAPSULE INHA DEV INH (09:34)
[2018-03-23] MEDS: SENNA TAB PO ×2 (09:34→20:46)
[2018-03-23] MEDS: DULOXETINE 30 MG CAP DR PO (09:34)
[2018-03-23] MEDS: FLUTICASONE/VILANTEROL 100-25 INH (09:35)
[2018-03-23] MEDS: ATENOLOL 25 MG TAB PO ×2 (09:35→20:40)
[2018-03-23] MEDS: AMLODIPINE 10 MG TAB PO (09:35)
[2018-03-23] MEDS: COLLAGENASE 5 GM (UD JAR) TOP (09:36)
[2018-03-23] MEDS: AMIODARONE 200 MG TAB PO (09:36)
[2018-03-23] MEDS: FERROUS SULFATE (EC) 325 MG TAB PO (09:36)
[2018-03-23] MEDS: BENAZEPRIL 40 MG TAB PO ×2 (09:36→20:39)
[2018-03-23] MEDS: HYDROCORTISONE 0.5% 28.35 GM CR TOP ×2 (09:38→20:46)
[2018-03-23 15:50] LABS: ADD MAN DIFF? NO
[2018-03-23 15:53] LABS: ABNORMAL IP MESSAGE 1; BASOPHILS % 0.6 % (0.0-2.0); EOSINOPHILS # 0.3 10^3/ul (0.0-0.5); EOSINOPHILS % 5.3 % (0.0-7.0); HEMATOCRIT 31.6 % (42.0-52.0); HEMOGLOBIN 9.8 g/dl (14.0-18.0); LYMPHOCYTES # 1.4 10^3/ul (0.8-2.9); LYMPHOCYTES % 26.4 % (15.0-51.0); MEAN CORPUSCULAR HEMOGLOBIN 26.7 pg (29.0-33.0); MEAN CORPUSCULAR VOLUME 86.1 fl (82.0-101.0); MEAN PLATELET VOLUME 11.5 fl (7.4-10.4); MONOCYTE # 0.5 10^3/ul (0.3-0.9); MONOCYTES % 10.4 % (0.0-11.0); NEUTROPHIL # 2.9 10^3/ul (1.6-7.5); NEUTROPHILS % 56.9 % (39.0-77.0); PLATELET COUNT 51 10^3/UL (140-415); POSITIVE DIFF @See below; RED BLOOD COUNT 3.67 10^6/ul (4.70-6.10); RED CELL DISTRIBUTION WIDTH 13.6 % (11.5-14.5)
[2018-03-23 15:53] LABS: WHITE BLOOD COUNT 5.1 10^3/ul (4.8-10.8)
[2018-03-23 16:14] LABS: ANION GAP 13 (8-16); BLOOD UREA NITROGEN 59 mg/dl (7-20); CALCIUM 9.1 mg/dl (8.4-10.2); CARBON DIOXIDE 26 mmol/L (21-31); CHLORIDE 105 mmol/L (97-110); GLUCOSE 112 mg/dl (70-220); POTASSIUM 4.4 mmol/L (3.5-5.1); SODIUM 140 mmol/L (135-144)
[2018-03-23] MEDS: INSULIN GLARGINE [LANtus] 3 ML PEN SC (20:43)
[2018-03-24] MEDS: ACCU-CHEK XX (01:40)
[2018-03-24] MEDS: HYDROmorphONE 1 MG/ML SYG IV ×6 (02:32→23:40)
[2018-03-24 06:26] LABS: ADD MAN DIFF? NO
[2018-03-24 06:34] LABS: WHITE BLOOD COUNT 4.3 10^3/ul (4.8-10.8)
[2018-03-24 06:34] LABS: ABNORMAL IP MESSAGE 1; BASOPHILS % 0.9 % (0.0-2.0); EOSINOPHILS # 0.3 10^3/ul (0.0-0.5); EOSINOPHILS % 5.8 % (0.0-7.0); HEMATOCRIT 30.6 % (42.0-52.0); HEMOGLOBIN 9.6 g/dl (14.0-18.0); LYMPHOCYTES # 1.3 10^3/ul (0.8-2.9); LYMPHOCYTES % 30.8 % (15.0-51.0); MEAN CORPUSCULAR HEMOGLOBIN 26.9 pg (29.0-33.0); MEAN CORPUSCULAR HGB CONC 31.4 g/dl (32.0-37.0); MEAN CORPUSCULAR VOLUME 85.7 fl (82.0-101.0); MEAN PLATELET VOLUME 11.5 fl (7.4-10.4); MONOCYTE # 0.5 10^3/ul (0.3-0.9); MONOCYTES % 11.2 % (0.0-11.0); NEUTROPHIL # 2.2 10^3/ul (1.6-7.5); NEUTROPHILS % 50.8 % (39.0-77.0); PLATELET COUNT 51 10^3/UL (140-415); POSITIVE DIFF @See below; RED BLOOD COUNT 3.57 10^6/ul (4.70-6.10); RED CELL DISTRIBUTION WIDTH 13.6 % (11.5-14.5)
[2018-03-24] MEDS: FUROSEMIDE 20 MG TAB PO (06:36)
[2018-03-24 07:07] LABS: ANION GAP 11 (8-16); BLOOD UREA NITROGEN 61 mg/dl (7-20); CARBON DIOXIDE 27 mmol/L (21-31); CHLORIDE 106 mmol/L (97-110); GLUCOSE 164 mg/dl (70-220); POTASSIUM 4.6 mmol/L (3.5-5.1); SODIUM 139 mmol/L (135-144)
[2018-03-24] MEDS: INSULIN ASPART [NOVOLOG] 3 ML PEN SC ×7 (08:00→20:46)
[2018-03-24] MEDS: BENAZEPRIL 40 MG TAB PO ×2 (08:13→20:47)
[2018-03-24] MEDS: DULOXETINE 30 MG CAP DR PO (08:13)
[2018-03-24] MEDS: FERROUS SULFATE (EC) 325 MG TAB PO (08:13)
[2018-03-24] MEDS: COLLAGENASE 5 GM (UD JAR) TOP (08:13)
[2018-03-24] MEDS: SENNA TAB PO ×2 (08:13→20:41)
[2018-03-24] MEDS: TIOTROPIUM 18 MCG CAPSULE INHA DEV INH (08:13)
[2018-03-24] MEDS: AMIODARONE 200 MG TAB PO (08:14)
[2018-03-24] MEDS: ATENOLOL 25 MG TAB PO ×2 (08:14→20:48)
[2018-03-24] MEDS: AMLODIPINE 10 MG TAB PO (08:15)
[2018-03-24] MEDS: FLUTICASONE/VILANTEROL 100-25 INH (08:15)
[2018-03-24] MEDS: HYDROCORTISONE 0.5% 28.35 GM CR TOP ×2 (11:50→20:50)
[2018-03-24 14:04] LABS: IRON 55 ug/dl (35-150)
[2018-03-24 14:13] LABS: % IRON SATURATION 19 % SAT (22-52); TOTAL IRON BINDING CAPACITY 285 ug/dl (241-421)
[2018-03-24] MEDS: INSULIN GLARGINE [LANtus] 3 ML PEN SC (20:49)
[2018-03-25] MEDS: ACCU-CHEK XX (02:00)
[2018-03-25] MEDS: HYDROmorphONE 1 MG/ML SYG IV ×5 (03:26→21:04)
[2018-03-25 05:10] LABS: ADD MAN DIFF? NO
[2018-03-25 05:22] LABS: WHITE BLOOD COUNT 4.2 10^3/ul (4.8-10.8)
[2018-03-25 05:22] LABS: ABNORMAL IP MESSAGE 1; BASOPHILS % 0.5 % (0.0-2.0); EOSINOPHILS # 0.2 10^3/ul (0.0-0.5); EOSINOPHILS % 5.7 % (0.0-7.0); HEMOGLOBIN 9.3 g/dl (14.0-18.0); LYMPHOCYTES # 1.2 10^3/ul (0.8-2.9); LYMPHOCYTES % 27.4 % (15.0-51.0); MEAN CORPUSCULAR HEMOGLOBIN 26.7 pg (29.0-33.0); MEAN CORPUSCULAR VOLUME 86.2 fl (82.0-101.0); MEAN PLATELET VOLUME 11.8 fl (7.4-10.4); MONOCYTE # 0.4 10^3/ul (0.3-0.9); MONOCYTES % 10.3 % (0.0-11.0); NEUTROPHIL # 2.3 10^3/ul (1.6-7.5); NEUTROPHILS % 55.1 % (39.0-77.0); PLATELET COUNT 51 10^3/UL (140-415); POSITIVE DIFF @See below; RED BLOOD COUNT 3.48 10^6/ul (4.70-6.10); RED CELL DISTRIBUTION WIDTH 13.7 % (11.5-14.5)
[2018-03-25] MEDS: PANTOPRAZOLE (EC) 40 MG TAB PO (05:45)
[2018-03-25] MEDS: FUROSEMIDE 20 MG TAB PO (05:46)
[2018-03-25 05:53] LABS: ANION GAP 13 (8-16); BLOOD UREA NITROGEN 59 mg/dl (7-20); CALCIUM 8.8 mg/dl (8.4-10.2); CARBON DIOXIDE 27 mmol/L (21-31); CHLORIDE 106 mmol/L (97-110); CREATININE 1.23 mg/dl (0.61-1.24); GLUCOSE 153 mg/dl (70-220); POTASSIUM 5.1 mmol/L (3.5-5.1); SODIUM 141 mmol/L (135-144)
[2018-03-25] MEDS: INSULIN ASPART [NOVOLOG] 3 ML PEN SC ×7 (07:35→21:01)
[2018-03-25] MEDS: FERROUS SULFATE (EC) 325 MG TAB PO (08:58)
[2018-03-25] MEDS: ATENOLOL 25 MG TAB PO ×2 (08:58→21:00)
[2018-03-25] MEDS: TIOTROPIUM 18 MCG CAPSULE INHA DEV INH (08:59)
[2018-03-25] MEDS: DULOXETINE 30 MG CAP DR PO (08:59)
[2018-03-25] MEDS: AMLODIPINE 10 MG TAB PO (08:59)
[2018-03-25] MEDS: SENNA TAB PO ×3 (08:59→21:00)
[2018-03-25] MEDS: BENAZEPRIL 40 MG TAB PO ×2 (08:59→21:00)
[2018-03-25] MEDS: FLUTICASONE/VILANTEROL 100-25 INH (09:00)
[2018-03-25] MEDS: COLLAGENASE 5 GM (UD JAR) TOP (09:00)
[2018-03-25] MEDS: AMIODARONE 200 MG TAB PO (09:00)
[2018-03-25] MEDS: HYDROCORTISONE 0.5% 28.35 GM CR TOP ×2 (09:05→21:00)
[2018-03-25] MEDS: INSULIN GLARGINE [LANtus] 3 ML PEN SC (21:00)
[2018-03-26] MEDS: ACCU-CHEK XX (02:00)
[2018-03-26] MEDS: HYDROmorphONE 1 MG/ML SYG IV ×6 (02:22→22:30)
[2018-03-26 05:24] LABS: ADD MAN DIFF? NO
[2018-03-26 05:32] LABS: WHITE BLOOD COUNT 5.1 10^3/ul (4.8-10.8)
[2018-03-26 05:32] LABS: ABNORMAL IP MESSAGE 1; BASOPHILS % 0.8 % (0.0-2.0); EOSINOPHILS # 0.2 10^3/ul (0.0-0.5); EOSINOPHILS % 4.5 % (0.0-7.0); HEMATOCRIT 29.2 % (42.0-52.0); HEMOGLOBIN 9.2 g/dl (14.0-18.0); LYMPHOCYTES # 1.4 10^3/ul (0.8-2.9); LYMPHOCYTES % 27.8 % (15.0-51.0); MEAN CORPUSCULAR HGB CONC 31.5 g/dl (32.0-37.0); MEAN CORPUSCULAR VOLUME 85.6 fl (82.0-101.0); MEAN PLATELET VOLUME 12.1 fl (7.4-10.4); MONOCYTE # 0.5 10^3/ul (0.3-0.9); MONOCYTES % 9.6 % (0.0-11.0); NEUTROPHIL # 2.9 10^3/ul (1.6-7.5); NEUTROPHILS % 56.5 % (39.0-77.0); PLATELET COUNT 48 10^3/UL (140-415); POSITIVE DIFF @See below; RED BLOOD COUNT 3.41 10^6/ul (4.70-6.10); RED CELL DISTRIBUTION WIDTH 14.2 % (11.5-14.5)
[2018-03-26 05:58] LABS: ANION GAP 17 (8-16); BLOOD UREA NITROGEN 63 mg/dl (7-20); CALCIUM 8.9 mg/dl (8.4-10.2); CARBON DIOXIDE 28 mmol/L (21-31); CHLORIDE 102 mmol/L (97-110); CREATININE 1.43 mg/dl (0.61-1.24); GLUCOSE 112 mg/dl (70-220); SODIUM 142 mmol/L (135-144)
[2018-03-26] MEDS: PANTOPRAZOLE (EC) 40 MG TAB PO (06:29)
[2018-03-26] MEDS: FUROSEMIDE 20 MG TAB PO (06:31)
[2018-03-26] MEDS: INSULIN ASPART [NOVOLOG] 3 ML PEN SC ×8 (07:35→22:41)
[2018-03-26] MEDS: TIOTROPIUM 18 MCG CAPSULE INHA DEV INH (09:12)
[2018-03-26] MEDS: FLUTICASONE/VILANTEROL 100-25 INH (09:12)
[2018-03-26] MEDS: SENNA TAB PO ×2 (09:12→22:40)
[2018-03-26] MEDS: DULOXETINE 30 MG CAP DR PO (09:12)
[2018-03-26] MEDS: ATENOLOL 25 MG TAB PO ×2 (09:13→22:31)
[2018-03-26] MEDS: AMLODIPINE 10 MG TAB PO (09:13)
[2018-03-26] MEDS: BENAZEPRIL 40 MG TAB PO ×2 (09:13→22:32)
[2018-03-26] MEDS: FERROUS SULFATE (EC) 325 MG TAB PO (09:13)
[2018-03-26] MEDS: AMIODARONE 200 MG TAB PO (09:14)
[2018-03-26] MEDS: HYDROCORTISONE 0.5% 28.35 GM CR TOP ×2 (09:15→22:33)
[2018-03-26] MEDS: COLLAGENASE 5 GM (UD JAR) TOP (09:16)
[2018-03-26] MEDS: ALTEPLASE (CATHFLO) 2 MG INJ CATHETER (09:21)
[2018-03-26 09:37] LABS: BAND NEUTROPHILS % (M) 1 % (0-4); EOSINOPHILS % (M) 6 % (0-7); ERYTHROBLAST% (NRBC) (M) 1 % (0-0); GIANT THROMBO% (M) 12 % (0-0); LYMPHOCYTES #M 1.4 10^3/ul (0.8-2.9); LYMPHOCYTES % (M) 29 % (15-51); MONOCYTE #M 0.5 10^3/ul (0.3-0.9); MONOCYTES % (M) 10 % (0-11); PLATELET ESTIMATE SIG DECREASED; REACTIVE LYMPHOCYTES #M 0.1 10^3/ul (0.0-0.0); REACTIVE LYMPHOCYTES% (M) 3 % (0-0); SEG NEUT #M 2.6 10^3/ul (1.6-7.5); SEGMENTED NEUTROPHILS (M) % 51 % (39-77); SMUDGE%M 19 % (0-0)
[2018-03-26] MEDS: INSULIN GLARGINE [LANtus] 3 ML PEN SC (22:39)
[2018-03-27] MEDS: SOD CHLORIDE 0.45% 1,000 ML IV ×2 (00:42→20:11)
[2018-03-27] MEDS: HYDROmorphONE 1 MG/ML SYG IV ×4 (01:44→21:29)
[2018-03-27] MEDS: ACCU-CHEK XX (02:00)
[2018-03-27] MEDS: PANTOPRAZOLE (EC) 40 MG TAB PO (06:05)
[2018-03-27] MEDS: FUROSEMIDE 20 MG TAB PO (06:06)
[2018-03-27] MEDS: INSULIN ASPART [NOVOLOG] 3 ML PEN SC ×8 (07:56→20:12)
[2018-03-27] MEDS: COLLAGENASE 5 GM (UD JAR) TOP ×2 (08:11→17:48)
[2018-03-27] MEDS: ATENOLOL 25 MG TAB PO (08:12)
[2018-03-27] MEDS: AMLODIPINE 10 MG TAB PO (08:12)
[2018-03-27] MEDS: FERROUS SULFATE (EC) 325 MG TAB PO (08:12)
[2018-03-27] MEDS: BENAZEPRIL 40 MG TAB PO ×2 (08:13→20:13)
[2018-03-27] MEDS: AMIODARONE 200 MG TAB PO (08:13)
[2018-03-27] MEDS: FLUTICASONE/VILANTEROL 100-25 INH (08:13)
[2018-03-27] MEDS: TIOTROPIUM 18 MCG CAPSULE INHA DEV INH (08:14)
[2018-03-27] MEDS: DULOXETINE 30 MG CAP DR PO (08:14)
[2018-03-27] MEDS: SENNA TAB PO ×2 (08:15→20:12)
[2018-03-27] MEDS: HYDROCORTISONE 0.5% 28.35 GM CR TOP ×2 (08:15→20:19)
[2018-03-27] MEDS: ALBUTEROL 0.083% (NEB) 2.5 MG/3 ML AMP HHN (20:51)
[2018-03-27] MEDS: INSULIN GLARGINE [LANtus] 3 ML PEN SC (20:57)
[2018-03-27] MEDS: ATROPINE 1 MG/10 ML SYRINGE IV ×2 (21:25→21:41)
[2018-03-28] MEDS: ACCU-CHEK XX (01:05)
[2018-03-28] MEDS: ALPRAZOLAM 0.25 MG TAB PO ×2 (01:13→17:05)
[2018-03-28] MEDS: HYDROmorphONE 1 MG/ML SYG IV ×5 (01:28→18:52)
[2018-03-28] MEDS: ALBUTEROL 0.083% (NEB) 2.5 MG/3 ML AMP HHN (01:53)
[2018-03-28] MEDS: PANTOPRAZOLE (EC) 40 MG TAB PO (05:10)
[2018-03-28] MEDS: FUROSEMIDE 20 MG TAB PO (05:10)
[2018-03-28 07:06] LABS: ADD MAN DIFF? NO
[2018-03-28 07:13] LABS: ABNORMAL IP MESSAGE 1; BASOPHILS % 0.9 % (0.0-2.0); EOSINOPHILS # 0.1 10^3/ul (0.0-0.5); EOSINOPHILS % 1.5 % (0.0-7.0); HEMATOCRIT 30.4 % (42.0-52.0); HEMOGLOBIN 9.5 g/dl (14.0-18.0); LYMPHOCYTES # 1.2 10^3/ul (0.8-2.9); LYMPHOCYTES % 26.9 % (15.0-51.0); MEAN CORPUSCULAR HEMOGLOBIN 26.9 pg (29.0-33.0); MEAN CORPUSCULAR HGB CONC 31.3 g/dl (32.0-37.0); MEAN CORPUSCULAR VOLUME 86.1 fl (82.0-101.0); MEAN PLATELET VOLUME 12.7 fl (7.4-10.4); MONOCYTE # 0.3 10^3/ul (0.3-0.9); MONOCYTES % 7.5 % (0.0-11.0); NEUTROPHIL # 2.8 10^3/ul (1.6-7.5); NEUTROPHILS % 62.5 % (39.0-77.0); POSITIVE DIFF @See below; RED BLOOD COUNT 3.53 10^6/ul (4.70-6.10)
[2018-03-28 07:13] LABS: WHITE BLOOD COUNT 4.5 10^3/ul (4.8-10.8)
[2018-03-28 07:20] LABS: PLATELET COUNT 58 10^3/UL (140-415)
[2018-03-28 07:22] LABS: ANION GAP 16 (8-16); BLOOD UREA NITROGEN 60 mg/dl (7-20); CALCIUM 8.8 mg/dl (8.4-10.2); CARBON DIOXIDE 27 mmol/L (21-31); CHLORIDE 101 mmol/L (97-110); CREATININE 1.48 mg/dl (0.61-1.24); GLUCOSE 98 mg/dl (70-220); POTASSIUM 5.1 mmol/L (3.5-5.1); SODIUM 139 mmol/L (135-144)
[2018-03-28] MEDS: INSULIN ASPART [NOVOLOG] 3 ML PEN SC ×7 (08:00→20:16)
[2018-03-28] MEDS: DULOXETINE 30 MG CAP DR PO (08:23)
[2018-03-28] MEDS: AMLODIPINE 10 MG TAB PO (08:23)
[2018-03-28] MEDS: SENNA TAB PO ×2 (08:24→20:08)
[2018-03-28] MEDS: FERROUS SULFATE (EC) 325 MG TAB PO (08:24)
[2018-03-28] MEDS: COLLAGENASE 5 GM (UD JAR) TOP (08:24)
[2018-03-28] MEDS: HYDROCORTISONE 0.5% 28.35 GM CR TOP ×2 (08:24→20:17)
[2018-03-28] MEDS: BENAZEPRIL 40 MG TAB PO ×2 (08:24→21:00)
[2018-03-28] MEDS: FLUTICASONE/VILANTEROL 100-25 INH (08:25)
[2018-03-28] MEDS: TIOTROPIUM 18 MCG CAPSULE INHA DEV INH (10:00)
[2018-03-28] MEDS: INSULIN GLARGINE [LANtus] 3 ML PEN SC (20:17)
[2018-03-29] MEDS: HYDROmorphONE 1 MG/ML SYG IV ×5 (01:30→23:30)
[2018-03-29] MEDS: ACCU-CHEK XX (01:32)
[2018-03-29] MEDS: FUROSEMIDE 20 MG TAB PO (05:16)
[2018-03-29] MEDS: PANTOPRAZOLE (EC) 40 MG TAB PO (05:17)
[2018-03-29] MEDS: INSULIN ASPART [NOVOLOG] 3 ML PEN SC ×8 (08:00→22:00)
[2018-03-29] MEDS: FLUTICASONE/VILANTEROL 100-25 INH (09:38)
[2018-03-29] MEDS: AMLODIPINE 10 MG TAB PO (09:39)
[2018-03-29] MEDS: BENAZEPRIL 40 MG TAB PO ×2 (09:39→22:01)
[2018-03-29] MEDS: TIOTROPIUM 18 MCG CAPSULE INHA DEV INH (09:39)
[2018-03-29] MEDS: DULOXETINE 30 MG CAP DR PO (09:39)
[2018-03-29] MEDS: FERROUS SULFATE (EC) 325 MG TAB PO (09:39)
[2018-03-29] MEDS: SENNA TAB PO ×2 (09:39→21:00)
[2018-03-29] MEDS: HYDROCORTISONE 0.5% 28.35 GM CR TOP ×2 (09:40→22:06)
[2018-03-29] MEDS: COLLAGENASE 5 GM (UD JAR) TOP (09:40)
[2018-03-29 11:17] LABS: ADD MAN DIFF? NO
[2018-03-29 11:19] LABS: ABNORMAL IP MESSAGE 1; BASOPHILS % 0.6 % (0.0-2.0); EOSINOPHILS # 0.2 10^3/ul (0.0-0.5); EOSINOPHILS % 4.7 % (0.0-7.0); HEMATOCRIT 28.2 % (42.0-52.0); HEMOGLOBIN 8.7 g/dl (14.0-18.0); LYMPHOCYTES # 0.6 10^3/ul (0.8-2.9); LYMPHOCYTES % 16.4 % (15.0-51.0); MEAN CORPUSCULAR HEMOGLOBIN 26.4 pg (29.0-33.0); MEAN CORPUSCULAR HGB CONC 30.9 g/dl (32.0-37.0); MEAN CORPUSCULAR VOLUME 85.7 fl (82.0-101.0); MEAN PLATELET VOLUME 10.9 fl (7.4-10.4); MONOCYTE # 0.3 10^3/ul (0.3-0.9); MONOCYTES % 8.8 % (0.0-11.0); NEUTROPHIL # 2.3 10^3/ul (1.6-7.5); NEUTROPHILS % 68.6 % (39.0-77.0); POSITIVE DIFF @See below; RED BLOOD COUNT 3.29 10^6/ul (4.70-6.10)
[2018-03-29 11:19] LABS: WHITE BLOOD COUNT 3.4 10^3/ul (4.8-10.8)
[2018-03-29 11:26] LABS: PLATELET COUNT 57 10^3/UL (140-415)
[2018-03-29 11:42] LABS: ANION GAP 13 (8-16); BLOOD UREA NITROGEN 44 mg/dl (7-20); CALCIUM 8.9 mg/dl (8.4-10.2); CARBON DIOXIDE 28 mmol/L (21-31); CHLORIDE 107 mmol/L (97-110); CREATININE 1.24 mg/dl (0.61-1.24); GLUCOSE 192 mg/dl (70-220); POTASSIUM 4.8 mmol/L (3.5-5.1); SODIUM 143 mmol/L (135-144)
[2018-03-29] MEDS ORDERED: FENTAnyl 50 MCG/ML VIAL IV ×3 (12:00)
[2018-03-29] MEDS ORDERED: ONDANSETRON 4 MG INJ IV (12:00)
[2018-03-29] MEDS ORDERED: OXYCODONE/ACETAMINOPHEN (5/325) TAB PO (12:00)
[2018-03-29] MEDS: INSULIN GLARGINE [LANtus] 3 ML PEN SC (22:03)
[2018-03-30] MEDS: ACCU-CHEK XX (02:00)
[2018-03-30] MEDS: HYDROmorphONE 1 MG/ML SYG IV ×3 (04:20→21:08)
[2018-03-30] MEDS: PANTOPRAZOLE (EC) 40 MG TAB PO (05:25)
[2018-03-30] MEDS: FUROSEMIDE 20 MG TAB PO (05:28)
[2018-03-30 07:59] LABS: ADD MAN DIFF? NO
[2018-03-30] MEDS: INSULIN ASPART [NOVOLOG] 3 ML PEN SC ×7 (08:00→20:58)
[2018-03-30 08:18] LABS: ABNORMAL IP MESSAGE 1; BASOPHILS % 1.1 % (0.0-2.0); EOSINOPHILS # 0.2 10^3/ul (0.0-0.5); EOSINOPHILS % 6.2 % (0.0-7.0); HEMATOCRIT 28.3 % (42.0-52.0); HEMOGLOBIN 8.8 g/dl (14.0-18.0); LYMPHOCYTES % 27.2 % (15.0-51.0); MEAN CORPUSCULAR HEMOGLOBIN 26.9 pg (29.0-33.0); MEAN CORPUSCULAR HGB CONC 31.1 g/dl (32.0-37.0); MEAN CORPUSCULAR VOLUME 86.5 fl (82.0-101.0); MEAN PLATELET VOLUME 10.9 fl (7.4-10.4); MONOCYTE # 0.3 10^3/ul (0.3-0.9); NEUTROPHILS % 55.9 % (39.0-77.0); PLATELET COUNT 57 10^3/UL (140-415); POSITIVE DIFF @See below; RED BLOOD COUNT 3.27 10^6/ul (4.70-6.10)
[2018-03-30 08:18] LABS: WHITE BLOOD COUNT 3.6 10^3/ul (4.8-10.8)
[2018-03-30 08:25] LABS: ANION GAP 13 (8-16); BLOOD UREA NITROGEN 45 mg/dl (7-20); CALCIUM 8.9 mg/dl (8.4-10.2); CARBON DIOXIDE 31 mmol/L (21-31); CHLORIDE 105 mmol/L (97-110); CREATININE 1.03 mg/dl (0.61-1.24); GLUCOSE 88 mg/dl (70-220); POTASSIUM 4.5 mmol/L (3.5-5.1); SODIUM 144 mmol/L (135-144)
[2018-03-30] MEDS: DEXTROSE 50% 50 ML SYRINGE IV (09:08)
[2018-03-30] MEDS: TIOTROPIUM 18 MCG CAPSULE INHA DEV INH (09:37)
[2018-03-30] MEDS: FLUTICASONE/VILANTEROL 100-25 INH (09:38)
[2018-03-30] MEDS: SENNA TAB PO ×2 (12:56→20:58)
[2018-03-30] MEDS: BENAZEPRIL 40 MG TAB PO ×2 (12:56→20:56)
[2018-03-30] MEDS: FERROUS SULFATE (EC) 325 MG TAB PO (12:56)
[2018-03-30] MEDS: DULOXETINE 30 MG CAP DR PO (12:56)
[2018-03-30] MEDS: AMLODIPINE 10 MG TAB PO (12:56)
[2018-03-30] MEDS: HYDROCORTISONE 0.5% 28.35 GM CR TOP ×2 (12:57→21:03)
[2018-03-30] MEDS: COLLAGENASE 5 GM (UD JAR) TOP (12:58)
[2018-03-30] MEDS: INSULIN GLARGINE [LANtus] 3 ML PEN SC (20:58)
[2018-03-31] MEDS: HYDROmorphONE 1 MG/ML SYG IV ×5 (01:18→20:25)
[2018-03-31] MEDS: ACCU-CHEK XX (01:24)
[2018-03-31] MEDS: PANTOPRAZOLE (EC) 40 MG TAB PO (05:18)
[2018-03-31] MEDS: FUROSEMIDE 20 MG TAB PO (05:19)
[2018-03-31] MEDS: INSULIN ASPART [NOVOLOG] 3 ML PEN SC ×7 (08:00→20:27)
[2018-03-31] MEDS: DEXTROSE 50% 50 ML SYRINGE IV (08:22)
[2018-03-31] MEDS: FLUTICASONE/VILANTEROL 100-25 INH (08:33)
[2018-03-31] MEDS: COLLAGENASE 5 GM (UD JAR) TOP (08:33)
[2018-03-31] MEDS: TIOTROPIUM 18 MCG CAPSULE INHA DEV INH (08:33)
[2018-03-31] MEDS: HYDROCORTISONE 0.5% 28.35 GM CR TOP ×2 (08:35→20:25)
[2018-03-31 08:37] LABS: ADD MAN DIFF? NO
[2018-03-31 08:41] LABS: ABNORMAL IP MESSAGE 1; BASOPHIL # 0.1 10^3/ul (0.0-0.1); EOSINOPHILS # 0.3 10^3/ul (0.0-0.5); EOSINOPHILS % 5.4 % (0.0-7.0); HEMATOCRIT 32.6 % (42.0-52.0); HEMOGLOBIN 10.1 g/dl (14.0-18.0); LYMPHOCYTES # 1.6 10^3/ul (0.8-2.9); LYMPHOCYTES % 31.1 % (15.0-51.0); MEAN CORPUSCULAR HEMOGLOBIN 26.3 pg (29.0-33.0); MEAN CORPUSCULAR VOLUME 84.9 fl (82.0-101.0); MEAN PLATELET VOLUME 10.6 fl (7.4-10.4); MONOCYTE # 0.5 10^3/ul (0.3-0.9); MONOCYTES % 9.4 % (0.0-11.0); NEUTROPHIL # 2.6 10^3/ul (1.6-7.5); NEUTROPHILS % 52.5 % (39.0-77.0); POSITIVE DIFF @See below; RED BLOOD COUNT 3.84 10^6/ul (4.70-6.10); RED CELL DISTRIBUTION WIDTH 13.7 % (11.5-14.5)
[2018-03-31 08:47] LABS: PLATELET COUNT 70 10^3/UL (140-415)
[2018-03-31 08:58] LABS: ANION GAP 16 (8-16); BLOOD UREA NITROGEN 39 mg/dl (7-20); CALCIUM 9.1 mg/dl (8.4-10.2); CARBON DIOXIDE 30 mmol/L (21-31); CHLORIDE 103 mmol/L (97-110); CREATININE 1.01 mg/dl (0.61-1.24); GLUCOSE 61 mg/dl (70-220); POTASSIUM 4.4 mmol/L (3.5-5.1); SODIUM 145 mmol/L (135-144)
[2018-03-31] MEDS: MIDAZOLAM 1 MG/ML 2 ML INJ (09:06)
[2018-03-31] MEDS: PROPOFOL 20 ML (09:06)
[2018-03-31] MEDS: EPHEDrine SULFATE 50 MG/5 ML SYG (09:06)
[2018-03-31] MEDS: FENTAnyl 50 MCG/ML VIAL (09:06)
[2018-03-31 09:10] LABS: INR 1.17; PROTIME 15.1 Sec (11.9-14.9); PT RATIO 1.2
[2018-03-31 09:11] LABS: PARTIAL THROMBOPLASTIN TIME 39.8 Sec (25.0-35.0)
[2018-03-31] MEDS: LIDOCAINE 1% (MDV) 10 ML INJ ×2 (09:11)
[2018-03-31] MEDS ORDERED: ATROPINE 1 MG/10 ML SYRINGE IV (10:00)
[2018-03-31] MEDS ORDERED: ONDANSETRON 4 MG INJ IV ×2 (10:00→14:00)
[2018-03-31] MEDS: POLYMYXIN/BACITRACIN 1L IRRIG IRR (12:30)
[2018-03-31] MEDS: VANCOMYCIN 1 GM 250 ML IVPB (12:30)
[2018-03-31] MEDS ORDERED: MIDAZOLAM 1 MG/ML 2 ML INJ (12:42)
[2018-03-31] MEDS ORDERED: PROPOFOL 20 ML (12:42)
[2018-03-31] MEDS ORDERED: FENTAnyl 50 MCG/ML VIAL (12:42)
[2018-03-31] MEDS ORDERED: LIDOCAINE 1%/EPI 30 ML INJ (12:48)
[2018-03-31] MEDS: FENTAnyl 50 MCG/ML VIAL IV ×4 (13:55→16:11)
[2018-03-31] MEDS ORDERED: OXYCODONE/ACETAMINOPHEN (5/325) TAB PO (14:00)
[2018-03-31] MEDS ORDERED: FENTAnyl 50 MCG/ML VIAL IV (14:00)
[2018-03-31] MEDS ORDERED: hydrALAzine 20 MG INJ IV (14:00)
[2018-03-31] MEDS ORDERED: EPHEDrine SULFATE 50 MG/5 ML SYG IV (14:00)
[2018-03-31] MEDS ORDERED: HYDROmorphONE 1 MG/5 ML IV SYRINGE IV ×2 (14:00)
[2018-03-31] MEDS ORDERED: LABETALOL HCL 20MG INJ IV (14:00)
[2018-03-31] MEDS ORDERED: METOCLOPRAMIDE 10 MG INJ IV (14:00)
[2018-03-31] MEDS: FERROUS SULFATE (EC) 325 MG TAB PO (16:05)
[2018-03-31] MEDS: DULOXETINE 30 MG CAP DR PO (16:06)
[2018-03-31] MEDS: AMLODIPINE 10 MG TAB PO (16:06)
[2018-03-31] MEDS: BENAZEPRIL 40 MG TAB PO ×2 (16:07→20:24)
[2018-03-31] MEDS: SENNA TAB PO ×2 (16:07→20:24)
[2018-03-31] MEDS: INSULIN GLARGINE [LANtus] 3 ML PEN SC (20:28)
[2018-04-01] MEDS: HYDROmorphONE 1 MG/ML SYG IV ×6 (00:51→18:09)
[2018-04-01] MEDS: VANCOMYCIN 1 GM (PMX) 250 ML IVPB ×2 (01:56→12:20)
[2018-04-01] MEDS: ACCU-CHEK XX (02:18)
[2018-04-01] MEDS: FUROSEMIDE 20 MG TAB PO (05:59)
[2018-04-01] MEDS: PANTOPRAZOLE (EC) 40 MG TAB PO (05:59)
[2018-04-01 06:11] LABS: ADD MAN DIFF? NO
[2018-04-01 06:15] LABS: ABNORMAL IP MESSAGE 1; BASOPHILS % 0.6 % (0.0-2.0); EOSINOPHILS # 0.3 10^3/ul (0.0-0.5); EOSINOPHILS % 4.6 % (0.0-7.0); HEMATOCRIT 32.4 % (42.0-52.0); LYMPHOCYTES # 1.6 10^3/ul (0.8-2.9); LYMPHOCYTES % 29.6 % (15.0-51.0); MEAN CORPUSCULAR HEMOGLOBIN 26.5 pg (29.0-33.0); MEAN CORPUSCULAR HGB CONC 30.9 g/dl (32.0-37.0); MEAN CORPUSCULAR VOLUME 85.7 fl (82.0-101.0); MONOCYTE # 0.6 10^3/ul (0.3-0.9); MONOCYTES % 10.9 % (0.0-11.0); NEUTROPHIL # 2.9 10^3/ul (1.6-7.5); NEUTROPHILS % 53.7 % (39.0-77.0); PLATELET COUNT 62 10^3/UL (140-415); POSITIVE DIFF @See below; RED BLOOD COUNT 3.78 10^6/ul (4.70-6.10); RED CELL DISTRIBUTION WIDTH 13.8 % (11.5-14.5)
[2018-04-01 06:15] LABS: WHITE BLOOD COUNT 5.4 10^3/ul (4.8-10.8)
[2018-04-01 07:01] LABS: ANION GAP 13 (8-16); BLOOD UREA NITROGEN 34 mg/dl (7-20); CARBON DIOXIDE 30 mmol/L (21-31); CHLORIDE 107 mmol/L (97-110); CREATININE 1.08 mg/dl (0.61-1.24); POTASSIUM 4.3 mmol/L (3.5-5.1); SODIUM 146 mmol/L (135-144)
[2018-04-01 07:08] LABS: GLUCOSE 42 mg/dl (70-220)
[2018-04-01] MEDS: INSULIN ASPART [NOVOLOG] 3 ML PEN SC ×7 (07:51→20:41)
[2018-04-01] MEDS: HYDROCORTISONE 0.5% 28.35 GM CR TOP ×2 (09:00→20:47)
[2018-04-01] MEDS: DULOXETINE 30 MG CAP DR PO (10:19)
[2018-04-01] MEDS: SENNA TAB PO ×2 (10:19→20:46)
[2018-04-01] MEDS: COLLAGENASE 5 GM (UD JAR) TOP (10:19)
[2018-04-01] MEDS: BENAZEPRIL 40 MG TAB PO ×2 (10:19→20:30)
[2018-04-01] MEDS: AMLODIPINE 10 MG TAB PO (10:19)
[2018-04-01] MEDS: FERROUS SULFATE (EC) 325 MG TAB PO (10:19)
[2018-04-01] MEDS: TIOTROPIUM 18 MCG CAPSULE INHA DEV INH (10:19)
[2018-04-01] MEDS: FLUTICASONE/VILANTEROL 100-25 INH (10:20)
[2018-04-01] MEDS: ALBUTEROL 0.083% (NEB) 2.5 MG/3 ML AMP HHN (11:45)
[2018-04-01] MEDS: ALPRAZOLAM 0.25 MG TAB PO (11:46)
[2018-04-01] MEDS: INSULIN GLARGINE [LANtus] 3 ML PEN SC (20:31)
[2018-04-02] MEDS: HYDROmorphONE 1 MG/ML SYG IV ×7 (00:02→22:22)
[2018-04-02] MEDS: ACCU-CHEK XX (02:00)
[2018-04-02] MEDS: FUROSEMIDE 20 MG TAB PO (05:38)
[2018-04-02] MEDS: PANTOPRAZOLE (EC) 40 MG TAB PO (05:39)
[2018-04-02] MEDS: INSULIN ASPART [NOVOLOG] 3 ML PEN SC ×6 (08:00→21:00)
[2018-04-02] MEDS: [UNRECOGNIZED DRUG - REMARK] XX ×2 (09:30→15:56)
[2018-04-02] MEDS: FERROUS SULFATE (EC) 325 MG TAB PO (09:38)
[2018-04-02] MEDS: DULOXETINE 30 MG CAP DR PO (09:38)
[2018-04-02] MEDS: FLUTICASONE/VILANTEROL 100-25 INH (09:38)
[2018-04-02] MEDS: ALPRAZOLAM 0.25 MG TAB PO (09:38)
[2018-04-02] MEDS: SENNA TAB PO ×2 (09:38→20:43)
[2018-04-02] MEDS: AMLODIPINE 10 MG TAB PO (09:38)
[2018-04-02] MEDS: COLLAGENASE 5 GM (UD JAR) TOP (09:38)
[2018-04-02] MEDS: HYDROCORTISONE 0.5% 28.35 GM CR TOP ×2 (09:39→22:26)
[2018-04-02] MEDS: BENAZEPRIL 40 MG TAB PO ×2 (09:39→20:39)
[2018-04-02] MEDS: TIOTROPIUM 18 MCG CAPSULE INHA DEV INH (10:20)
[2018-04-02] MEDS: INSULIN GLARGINE [LANtus] 3 ML PEN SC (20:40)
[2018-04-02 22:56] LABS: ADD MAN DIFF? NO
[2018-04-02 23:02] LABS: WHITE BLOOD COUNT 3.2 10^3/ul (4.8-10.8)
[2018-04-02 23:02] LABS: ABNORMAL IP MESSAGE 1; BASOPHILS % 0.6 % (0.0-2.0); EOSINOPHILS # 0.2 10^3/ul (0.0-0.5); EOSINOPHILS % 6.3 % (0.0-7.0); HEMATOCRIT 27.5 % (42.0-52.0); HEMOGLOBIN 8.4 g/dl (14.0-18.0); LYMPHOCYTES % 30.9 % (15.0-51.0); MEAN CORPUSCULAR HEMOGLOBIN 26.3 pg (29.0-33.0); MEAN CORPUSCULAR HGB CONC 30.5 g/dl (32.0-37.0); MEAN CORPUSCULAR VOLUME 86.2 fl (82.0-101.0); MEAN PLATELET VOLUME 11.9 fl (7.4-10.4); MONOCYTE # 0.3 10^3/ul (0.3-0.9); MONOCYTES % 9.7 % (0.0-11.0); NEUTROPHIL # 1.7 10^3/ul (1.6-7.5); NEUTROPHILS % 52.2 % (39.0-77.0); PLATELET COUNT 43 10^3/UL (140-415); POSITIVE DIFF @See below; RED BLOOD COUNT 3.19 10^6/ul (4.70-6.10); RED CELL DISTRIBUTION WIDTH 13.4 % (11.5-14.5)
[2018-04-02 23:23] LABS: ANION GAP 13 (8-16); BLOOD UREA NITROGEN 50 mg/dl (7-20); CALCIUM 8.7 mg/dl (8.4-10.2); CARBON DIOXIDE 30 mmol/L (21-31); CHLORIDE 102 mmol/L (97-110); CREATININE 1.19 mg/dl (0.61-1.24); GLUCOSE 157 mg/dl (70-220); POTASSIUM 4.8 mmol/L (3.5-5.1); SODIUM 140 mmol/L (135-144)
[2018-04-03] MEDS: [UNRECOGNIZED DRUG - REMARK] XX ×3 (01:30→16:38)
[2018-04-03] MEDS: ACCU-CHEK XX (02:00)
[2018-04-03] MEDS: HYDROmorphONE 1 MG/ML SYG IV ×6 (03:33→21:57)
[2018-04-03] MEDS: FUROSEMIDE 20 MG TAB PO (05:48)
[2018-04-03] MEDS: PANTOPRAZOLE (EC) 40 MG TAB PO (05:48)
[2018-04-03] MEDS: INSULIN ASPART [NOVOLOG] 3 ML PEN SC ×7 (08:00→20:22)
[2018-04-03] MEDS: SENNA TAB PO ×2 (09:19→20:18)
[2018-04-03] MEDS: COLLAGENASE 5 GM (UD JAR) TOP (09:19)
[2018-04-03] MEDS: DULOXETINE 30 MG CAP DR PO (09:19)
[2018-04-03] MEDS: FERROUS SULFATE (EC) 325 MG TAB PO (09:19)
[2018-04-03] MEDS: TIOTROPIUM 18 MCG CAPSULE INHA DEV INH (09:20)
[2018-04-03] MEDS: FLUTICASONE/VILANTEROL 100-25 INH (09:20)
[2018-04-03] MEDS: AMLODIPINE 10 MG TAB PO (09:21)
[2018-04-03] MEDS: BENAZEPRIL 40 MG TAB PO ×2 (09:21→21:00)
[2018-04-03] MEDS: HYDROCORTISONE 0.5% 28.35 GM CR TOP ×2 (09:24→21:24)
[2018-04-03 15:15] LABS: WHITE BLOOD COUNT 4.3 10^3/ul (4.8-10.8)
[2018-04-03 15:15] LABS: ABNORMAL IP MESSAGE 1; HEMATOCRIT 28.3 % (42.0-52.0); HEMOGLOBIN 8.8 g/dl (14.0-18.0); MEAN CORPUSCULAR HEMOGLOBIN 26.6 pg (29.0-33.0); MEAN CORPUSCULAR HGB CONC 31.1 g/dl (32.0-37.0); MEAN CORPUSCULAR VOLUME 85.5 fl (82.0-101.0); MEAN PLATELET VOLUME 11.6 fl (7.4-10.4); PLATELET COUNT 46 10^3/UL (140-415); POSITIVE DIFF @See below; RED BLOOD COUNT 3.31 10^6/ul (4.70-6.10); RED CELL DISTRIBUTION WIDTH 13.5 % (11.5-14.5)
[2018-04-03 15:39] LABS: ANION GAP 12 (8-16); BLOOD UREA NITROGEN 44 mg/dl (7-20); CALCIUM 8.7 mg/dl (8.4-10.2); CARBON DIOXIDE 30 mmol/L (21-31); CHLORIDE 103 mmol/L (97-110); CREATININE 1.25 mg/dl (0.61-1.24); GLUCOSE 193 mg/dl (70-220); POTASSIUM 4.8 mmol/L (3.5-5.1); SODIUM 140 mmol/L (135-144)
[2018-04-03 15:48] LABS: ADD MAN DIFF? YES
[2018-04-03 17:07] LABS: EOSINOPHILS # 0.4 10^3/ul (0.0-0.5); EOSINOPHILS % (M) 10 % (0.0-7.0); LYMPHOCYTES # 0.7 10^3/ul (0.8-2.9); LYMPHOCYTES #M 0.7 10^3/ul (0.8-2.9); LYMPHOCYTES % (M) 17 % (15-51); MONOCYTE # 0.2 10^3/ul (0.3-0.9); MONOCYTE #M 0.2 10^3/ul (0.3-0.9); MONOCYTES % (M) 5 % (0-11); SEGMENTED NEUTROPHILS (M) % 68 % (39-77)
[2018-04-03] MEDS: INSULIN GLARGINE [LANtus] 3 ML PEN SC (20:20)
[2018-04-04] MEDS: HYDROmorphONE 1 MG/ML SYG IV ×7 (01:32→23:43)
[2018-04-04] MEDS: ACCU-CHEK XX (02:00)
[2018-04-04] MEDS: PANTOPRAZOLE (EC) 40 MG TAB PO (05:26)
[2018-04-04] MEDS: FUROSEMIDE 20 MG TAB PO (05:27)
[2018-04-04] MEDS: [UNRECOGNIZED DRUG - REMARK] XX ×3 (07:15→16:35)
[2018-04-04] MEDS: INSULIN ASPART [NOVOLOG] 3 ML PEN SC ×7 (08:00→20:37)
[2018-04-04] MEDS: FLUTICASONE/VILANTEROL 100-25 INH (08:03)
[2018-04-04] MEDS: TIOTROPIUM 18 MCG CAPSULE INHA DEV INH (08:03)
[2018-04-04] MEDS: SENNA TAB PO ×2 (08:04→20:29)
[2018-04-04] MEDS: DULOXETINE 30 MG CAP DR PO (08:04)
[2018-04-04] MEDS: FERROUS SULFATE (EC) 325 MG TAB PO (08:04)
[2018-04-04] MEDS: BENAZEPRIL 40 MG TAB PO ×2 (08:06→20:35)
[2018-04-04] MEDS: AMLODIPINE 10 MG TAB PO (08:06)
[2018-04-04] MEDS: COLLAGENASE 5 GM (UD JAR) TOP (08:06)
[2018-04-04] MEDS: HYDROCORTISONE 0.5% 28.35 GM CR TOP ×2 (08:13→20:42)
[2018-04-04 12:47] LABS: ANION GAP 14 (8-16); BLOOD UREA NITROGEN 49 mg/dl (7-20); CALCIUM 8.8 mg/dl (8.4-10.2); CARBON DIOXIDE 29 mmol/L (21-31); CHLORIDE 104 mmol/L (97-110); CREATININE 1.27 mg/dl (0.61-1.24); GLUCOSE 133 mg/dl (70-220); POTASSIUM 4.4 mmol/L (3.5-5.1); SODIUM 143 mmol/L (135-144)
[2018-04-04] MEDS: ALBUMIN HUMAN 25% 100 ML IV (14:35)
[2018-04-04] MEDS: SOD CHLORIDE 0.9% 1,000 ML IV (14:35)
[2018-04-04] MEDS: INSULIN GLARGINE [LANtus] 3 ML PEN SC (20:32)
[2018-04-05] MEDS: [UNRECOGNIZED DRUG - REMARK] XX ×3 (01:30→17:04)
[2018-04-05] MEDS: ACCU-CHEK XX (02:00)
[2018-04-05] MEDS: HYDROmorphONE 1 MG/ML SYG IV ×6 (03:30→23:39)
[2018-04-05] MEDS: PANTOPRAZOLE (EC) 40 MG TAB PO (06:43)
[2018-04-05] MEDS: FUROSEMIDE 20 MG TAB PO (06:43)
[2018-04-05] MEDS: INSULIN ASPART [NOVOLOG] 3 ML PEN SC ×7 (08:00→20:05)
[2018-04-05] MEDS: FLUTICASONE/VILANTEROL 100-25 INH (08:19)
[2018-04-05] MEDS: DULOXETINE 30 MG CAP DR PO (08:20)
[2018-04-05] MEDS: HYDROCORTISONE 0.5% 28.35 GM CR TOP ×2 (08:20→21:21)
[2018-04-05] MEDS: BENAZEPRIL 40 MG TAB PO ×2 (08:20→20:07)
[2018-04-05] MEDS: AMLODIPINE 10 MG TAB PO (08:20)
[2018-04-05] MEDS: TIOTROPIUM 18 MCG CAPSULE INHA DEV INH (08:20)
[2018-04-05] MEDS: SENNA TAB PO ×2 (08:20→20:06)
[2018-04-05] MEDS: FERROUS SULFATE (EC) 325 MG TAB PO (08:20)
[2018-04-05] MEDS: COLLAGENASE 5 GM (UD JAR) TOP (08:20)
[2018-04-05 09:14] LABS: ADD MAN DIFF? NO
[2018-04-05 09:20] LABS: ABNORMAL IP MESSAGE 1; BASOPHILS % 1.2 % (0.0-2.0); EOSINOPHILS # 0.2 10^3/ul (0.0-0.5); EOSINOPHILS % 7.1 % (0.0-7.0); HEMATOCRIT 28.1 % (42.0-52.0); HEMOGLOBIN 8.7 g/dl (14.0-18.0); LYMPHOCYTES # 0.8 10^3/ul (0.8-2.9); LYMPHOCYTES % 25.8 % (15.0-51.0); MEAN CORPUSCULAR HEMOGLOBIN 26.5 pg (29.0-33.0); MEAN CORPUSCULAR VOLUME 85.7 fl (82.0-101.0); MEAN PLATELET VOLUME 11.7 fl (7.4-10.4); MONOCYTE # 0.3 10^3/ul (0.3-0.9); MONOCYTES % 8.4 % (0.0-11.0); NEUTROPHIL # 1.8 10^3/ul (1.6-7.5); NEUTROPHILS % 56.9 % (39.0-77.0); PLATELET COUNT 55 10^3/UL (140-415); POSITIVE DIFF @See below; RED BLOOD COUNT 3.28 10^6/ul (4.70-6.10); RED CELL DISTRIBUTION WIDTH 13.6 % (11.5-14.5)
[2018-04-05 09:20] LABS: WHITE BLOOD COUNT 3.2 10^3/ul (4.8-10.8)
[2018-04-05 09:41] LABS: ANION GAP 16 (8-16); BLOOD UREA NITROGEN 42 mg/dl (7-20); GLUCOSE 109 mg/dl (70-220)
[2018-04-05 09:45] LABS: CARBON DIOXIDE 30 mmol/L (21-31); CHLORIDE 103 mmol/L (97-110); CREATININE 1.25 mg/dl (0.61-1.24); POTASSIUM 4.4 mmol/L (3.5-5.1); SODIUM 145 mmol/L (135-144)
[2018-04-05] MEDS: INSULIN GLARGINE [LANtus] 3 ML PEN SC (22:05)
[2018-04-06] MEDS: [UNRECOGNIZED DRUG - REMARK] XX ×3 (01:30→17:25)
[2018-04-06] MEDS: ACCU-CHEK XX (01:39)
[2018-04-06] MEDS: HYDROmorphONE 1 MG/ML SYG IV ×6 (03:22→22:37)
[2018-04-06] MEDS: PANTOPRAZOLE (EC) 40 MG TAB PO (05:22)
[2018-04-06] MEDS: FUROSEMIDE 20 MG TAB PO (05:22)
[2018-04-06] MEDS: INSULIN ASPART [NOVOLOG] 3 ML PEN SC ×7 (07:55→20:07)
[2018-04-06] MEDS: FERROUS SULFATE (EC) 325 MG TAB PO (07:57)
[2018-04-06] MEDS: BENAZEPRIL 40 MG TAB PO ×2 (07:57→20:07)
[2018-04-06] MEDS: FLUTICASONE/VILANTEROL 100-25 INH (07:58)
[2018-04-06] MEDS: SENNA TAB PO ×2 (07:58→20:07)
[2018-04-06] MEDS: TIOTROPIUM 18 MCG CAPSULE INHA DEV INH (07:58)
[2018-04-06] MEDS: COLLAGENASE 5 GM (UD JAR) TOP (07:59)
[2018-04-06] MEDS: AMLODIPINE 10 MG TAB PO (07:59)
[2018-04-06] MEDS: HYDROCORTISONE 0.5% 28.35 GM CR TOP ×2 (07:59→20:12)
[2018-04-06] MEDS: DULOXETINE 30 MG CAP DR PO (08:04)
[2018-04-06] MEDS: INSULIN GLARGINE [LANtus] 3 ML PEN SC (20:12)
[2018-04-07] MEDS: ACCU-CHEK XX (01:25)
[2018-04-07] MEDS: [UNRECOGNIZED DRUG - REMARK] XX ×3 (01:30→17:25)
[2018-04-07] MEDS: PANTOPRAZOLE (EC) 40 MG TAB PO (05:13)
[2018-04-07] MEDS: FUROSEMIDE 20 MG TAB PO (05:14)
[2018-04-07] MEDS: HYDROmorphONE 1 MG/ML SYG IV ×6 (05:17→21:42)
[2018-04-07 06:45] LABS: ADD MAN DIFF? NO
[2018-04-07 06:50] LABS: WHITE BLOOD COUNT 3.3 10^3/ul (4.8-10.8)
[2018-04-07 06:51] LABS: ABNORMAL IP MESSAGE 1; BASOPHILS % 0.9 % (0.0-2.0); EOSINOPHILS # 0.3 10^3/ul (0.0-0.5); EOSINOPHILS % 7.6 % (0.0-7.0); HEMATOCRIT 27.7 % (42.0-52.0); HEMOGLOBIN 8.6 g/dl (14.0-18.0); LYMPHOCYTES # 0.8 10^3/ul (0.8-2.9); LYMPHOCYTES % 24.3 % (15.0-51.0); MEAN CORPUSCULAR HEMOGLOBIN 26.6 pg (29.0-33.0); MEAN CORPUSCULAR VOLUME 85.8 fl (82.0-101.0); MEAN PLATELET VOLUME 11.4 fl (7.4-10.4); MONOCYTE # 0.4 10^3/ul (0.3-0.9); MONOCYTES % 10.6 % (0.0-11.0); NEUTROPHIL # 1.8 10^3/ul (1.6-7.5); PLATELET COUNT 66 10^3/UL (140-415); POSITIVE DIFF @See below; RED BLOOD COUNT 3.23 10^6/ul (4.70-6.10); RED CELL DISTRIBUTION WIDTH 13.4 % (11.5-14.5)
[2018-04-07 07:25] LABS: ALANINE AMINOTRANSFERASE 23 IU/L (13-69); ANION GAP 16 (8-16); ASPARTATE AMINO TRANSFERASE 25 IU/L (15-46); BLOOD UREA NITROGEN 37 mg/dl (7-20); CALCIUM 9.1 mg/dl (8.4-10.2); CARBON DIOXIDE 31 mmol/L (21-31); CHLORIDE 102 mmol/L (97-110); CREATININE 1.12 mg/dl (0.61-1.24); GLUCOSE 118 mg/dl (70-220); POTASSIUM 4.4 mmol/L (3.5-5.1); SODIUM 145 mmol/L (135-144)
[2018-04-07 07:26] LABS: ALBUMIN 3.7 g/dl (3.3-4.9); ALBUMIN/GLOBULIN RATIO 0.88; ALKALINE PHOSPHATASE 180 IU/L (42-121); BILIRUBIN,INDIRECT 0.7 mg/dl (0-1.1); BILIRUBIN,TOTAL 0.7 mg/dl (0.2-1.3); TOTAL PROTEIN 7.9 g/dl (6.1-8.1)
[2018-04-07] MEDS: INSULIN ASPART [NOVOLOG] 3 ML PEN SC ×7 (08:00→20:34)
[2018-04-07] MEDS: COLLAGENASE 5 GM (UD JAR) TOP (08:19)
[2018-04-07] MEDS: DULOXETINE 30 MG CAP DR PO (08:19)
[2018-04-07] MEDS: FERROUS SULFATE (EC) 325 MG TAB PO (08:19)
[2018-04-07] MEDS: AMLODIPINE 10 MG TAB PO (08:19)
[2018-04-07] MEDS: BENAZEPRIL 40 MG TAB PO ×2 (08:19→21:42)
[2018-04-07] MEDS: FLUTICASONE/VILANTEROL 100-25 INH (08:20)
[2018-04-07] MEDS: TIOTROPIUM 18 MCG CAPSULE INHA DEV INH (08:20)
[2018-04-07] MEDS: SENNA TAB PO ×2 (08:20→20:33)
[2018-04-07] MEDS: HYDROCORTISONE 0.5% 28.35 GM CR TOP ×2 (08:20→20:34)
[2018-04-07] MEDS: ACETAMINOPHEN 325 MG TAB PO (17:26)
[2018-04-07] MEDS: INSULIN GLARGINE [LANtus] 3 ML PEN SC (20:45)
[2018-04-08] MEDS: HYDROmorphONE 1 MG/ML SYG IV ×6 (01:18→22:03)
[2018-04-08] MEDS: [UNRECOGNIZED DRUG - REMARK] XX ×3 (01:30→17:12)
[2018-04-08] MEDS: ACCU-CHEK XX (01:55)
[2018-04-08] MEDS: FUROSEMIDE 20 MG TAB PO (06:12)
[2018-04-08] MEDS: PANTOPRAZOLE (EC) 40 MG TAB PO (06:12)
[2018-04-08] MEDS: INSULIN ASPART [NOVOLOG] 3 ML PEN SC ×7 (08:00→21:21)
[2018-04-08] MEDS: DULOXETINE 30 MG CAP DR PO (08:30)
[2018-04-08] MEDS: SENNA TAB PO ×2 (08:31→21:11)
[2018-04-08] MEDS: AMLODIPINE 10 MG TAB PO (08:31)
[2018-04-08] MEDS: BENAZEPRIL 40 MG TAB PO ×2 (08:31→21:12)
[2018-04-08] MEDS: FERROUS SULFATE (EC) 325 MG TAB PO (08:31)
[2018-04-08] MEDS: TIOTROPIUM 18 MCG CAPSULE INHA DEV INH (08:31)
[2018-04-08] MEDS: HYDROCORTISONE 0.5% 28.35 GM CR TOP ×2 (08:32→21:00)
[2018-04-08] MEDS: COLLAGENASE 5 GM (UD JAR) TOP (08:32)
[2018-04-08] MEDS: FLUTICASONE/VILANTEROL 100-25 INH (08:32)
[2018-04-08] MEDS: INSULIN GLARGINE [LANtus] 3 ML PEN SC (21:18)
[2018-04-09] MEDS: [UNRECOGNIZED DRUG - REMARK] XX ×3 (01:30→17:17)
[2018-04-09] MEDS: ACCU-CHEK XX (02:32)
[2018-04-09] MEDS: HYDROmorphONE 1 MG/ML SYG IV ×7 (03:13→22:49)
[2018-04-09] MEDS: PANTOPRAZOLE (EC) 40 MG TAB PO (06:13)
[2018-04-09] MEDS: FUROSEMIDE 20 MG TAB PO (06:13)
[2018-04-09] MEDS: SENNA TAB PO ×2 (09:00→21:00)
[2018-04-09] MEDS: FLUTICASONE/VILANTEROL 100-25 INH (09:14)
[2018-04-09] MEDS: DULOXETINE 30 MG CAP DR PO (09:14)
[2018-04-09] MEDS: BENAZEPRIL 40 MG TAB PO ×2 (09:14→21:27)
[2018-04-09] MEDS: FERROUS SULFATE (EC) 325 MG TAB PO (09:15)
[2018-04-09] MEDS: COLLAGENASE 5 GM (UD JAR) TOP (09:16)
[2018-04-09] MEDS: AMLODIPINE 10 MG TAB PO (09:16)
[2018-04-09] MEDS: HYDROCORTISONE 0.5% 28.35 GM CR TOP ×2 (09:16→21:00)
[2018-04-09] MEDS: INSULIN ASPART [NOVOLOG] 3 ML PEN SC ×7 (09:20→21:34)
[2018-04-09] MEDS: TIOTROPIUM 18 MCG CAPSULE INHA DEV INH (09:23)
[2018-04-09 13:43] LABS: ADD MAN DIFF? NO
[2018-04-09 13:45] LABS: ABNORMAL IP MESSAGE 1; BASOPHILS % 0.9 % (0.0-2.0); EOSINOPHILS # 0.3 10^3/ul (0.0-0.5); EOSINOPHILS % 6.8 % (0.0-7.0); HEMATOCRIT 29.3 % (42.0-52.0); LYMPHOCYTES # 1.1 10^3/ul (0.8-2.9); LYMPHOCYTES % 24.4 % (15.0-51.0); MEAN CORPUSCULAR HEMOGLOBIN 26.3 pg (29.0-33.0); MEAN CORPUSCULAR HGB CONC 30.7 g/dl (32.0-37.0); MEAN CORPUSCULAR VOLUME 85.7 fl (82.0-101.0); MEAN PLATELET VOLUME 10.9 fl (7.4-10.4); MONOCYTE # 0.4 10^3/ul (0.3-0.9); MONOCYTES % 9.7 % (0.0-11.0); NEUTROPHIL # 2.6 10^3/ul (1.6-7.5); NEUTROPHILS % 57.7 % (39.0-77.0); PLATELET COUNT 91 10^3/UL (140-415); POSITIVE DIFF @See below; RED BLOOD COUNT 3.42 10^6/ul (4.70-6.10); RED CELL DISTRIBUTION WIDTH 13.4 % (11.5-14.5)
[2018-04-09 13:45] LABS: WHITE BLOOD COUNT 4.4 10^3/ul (4.8-10.8)
[2018-04-09 14:03] LABS: ANION GAP 14 (8-16); BLOOD UREA NITROGEN 41 mg/dl (7-20); CALCIUM 9.3 mg/dl (8.4-10.2); CARBON DIOXIDE 32 mmol/L (21-31); CHLORIDE 101 mmol/L (97-110); CREATININE 1.11 mg/dl (0.61-1.24); GLUCOSE 69 mg/dl (70-220); POTASSIUM 4.3 mmol/L (3.5-5.1); SODIUM 143 mmol/L (135-144)
[2018-04-09] MEDS: INSULIN GLARGINE [LANtus] 3 ML PEN SC (21:33)
[2018-04-10] MEDS: [UNRECOGNIZED DRUG - REMARK] XX ×3 (01:30→17:07)
[2018-04-10] MEDS: ACCU-CHEK XX (02:00)
[2018-04-10] MEDS: HYDROmorphONE 1 MG/ML SYG IV ×7 (03:02→22:07)
[2018-04-10] MEDS: PANTOPRAZOLE (EC) 40 MG TAB PO (06:16)
[2018-04-10] MEDS: FUROSEMIDE 20 MG TAB PO (06:17)
[2018-04-10] MEDS: INSULIN ASPART [NOVOLOG] 3 ML PEN SC ×7 (07:35→20:30)
[2018-04-10 07:42] LABS: ADD MAN DIFF? NO
[2018-04-10 07:46] LABS: ABNORMAL IP MESSAGE 1; BASOPHILS % 0.9 % (0.0-2.0); EOSINOPHILS # 0.3 10^3/ul (0.0-0.5); EOSINOPHILS % 7.1 % (0.0-7.0); HEMATOCRIT 29.1 % (42.0-52.0); HEMOGLOBIN 8.8 g/dl (14.0-18.0); LYMPHOCYTES % 27.4 % (15.0-51.0); MEAN CORPUSCULAR HEMOGLOBIN 25.7 pg (29.0-33.0); MEAN CORPUSCULAR HGB CONC 30.2 g/dl (32.0-37.0); MEAN CORPUSCULAR VOLUME 84.8 fl (82.0-101.0); MEAN PLATELET VOLUME 11.1 fl (7.4-10.4); MONOCYTE # 0.4 10^3/ul (0.3-0.9); MONOCYTES % 10.5 % (0.0-11.0); NEUTROPHIL # 1.9 10^3/ul (1.6-7.5); NEUTROPHILS % 53.8 % (39.0-77.0); PLATELET COUNT 82 10^3/UL (140-415); POSITIVE DIFF @See below; RED BLOOD COUNT 3.43 10^6/ul (4.70-6.10); RED CELL DISTRIBUTION WIDTH 13.6 % (11.5-14.5)
[2018-04-10 07:46] LABS: WHITE BLOOD COUNT 3.5 10^3/ul (4.8-10.8)
[2018-04-10 08:12] LABS: ANION GAP 11 (8-16); BLOOD UREA NITROGEN 44 mg/dl (7-20); CALCIUM 9.1 mg/dl (8.4-10.2); CARBON DIOXIDE 33 mmol/L (21-31); CHLORIDE 102 mmol/L (97-110); CREATININE 1.13 mg/dl (0.61-1.24); GLUCOSE 102 mg/dl (70-220); POTASSIUM 4.4 mmol/L (3.5-5.1); SODIUM 142 mmol/L (135-144)
[2018-04-10] MEDS: SENNA TAB PO ×2 (09:00→20:23)
[2018-04-10] MEDS: BENAZEPRIL 40 MG TAB PO ×2 (09:17→20:23)
[2018-04-10] MEDS: FERROUS SULFATE (EC) 325 MG TAB PO (09:17)
[2018-04-10] MEDS: DULOXETINE 30 MG CAP DR PO (09:17)
[2018-04-10] MEDS: COLLAGENASE 5 GM (UD JAR) TOP (09:17)
[2018-04-10] MEDS: AMLODIPINE 10 MG TAB PO (09:17)
[2018-04-10] MEDS: TIOTROPIUM 18 MCG CAPSULE INHA DEV INH (09:17)
[2018-04-10] MEDS: FLUTICASONE/VILANTEROL 100-25 INH (09:17)
[2018-04-10] MEDS: HYDROCORTISONE 0.5% 28.35 GM CR TOP ×2 (09:18→20:30)
[2018-04-10] MEDS: DEXTROSE 50% 50 ML SYRINGE IV (11:51)
[2018-04-10] MEDS: ALBUTEROL 0.083% (NEB) 2.5 MG/3 ML AMP HHN (15:23)
[2018-04-10] MEDS: ALPRAZOLAM 0.25 MG TAB PO (15:25)
[2018-04-10] MEDS ORDERED: METOPROLOL 5 MG INJ IV (19:00)
[2018-04-10] MEDS: INSULIN GLARGINE [LANtus] 3 ML PEN SC (20:29)
[2018-04-11] MEDS: [UNRECOGNIZED DRUG - REMARK] XX ×3 (01:13→13:51)
[2018-04-11] MEDS: ACCU-CHEK XX (01:29)
[2018-04-11] MEDS: FUROSEMIDE 20 MG TAB PO (05:23)
[2018-04-11] MEDS: PANTOPRAZOLE (EC) 40 MG TAB PO (05:24)
[2018-04-11] MEDS: HYDROmorphONE 1 MG/ML SYG IV ×6 (05:26→23:23)
[2018-04-11] MEDS: SENNA TAB PO ×2 (07:20→20:11)
[2018-04-11] MEDS: INSULIN ASPART [NOVOLOG] 3 ML PEN SC ×7 (07:25→20:11)
[2018-04-11 08:45] LABS: ADD MAN DIFF? NO
[2018-04-11 08:50] LABS: WHITE BLOOD COUNT 3.9 10^3/ul (4.8-10.8)
[2018-04-11 08:50] LABS: ABNORMAL IP MESSAGE 1; BASOPHILS % 0.8 % (0.0-2.0); EOSINOPHILS # 0.3 10^3/ul (0.0-0.5); EOSINOPHILS % 8.2 % (0.0-7.0); HEMATOCRIT 29.3 % (42.0-52.0); LYMPHOCYTES # 0.9 10^3/ul (0.8-2.9); LYMPHOCYTES % 23.7 % (15.0-51.0); MEAN CORPUSCULAR HGB CONC 30.7 g/dl (32.0-37.0); MEAN CORPUSCULAR VOLUME 84.7 fl (82.0-101.0); MEAN PLATELET VOLUME 11.1 fl (7.4-10.4); MONOCYTE # 0.4 10^3/ul (0.3-0.9); MONOCYTES % 9.5 % (0.0-11.0); NEUTROPHIL # 2.2 10^3/ul (1.6-7.5); NEUTROPHILS % 57.3 % (39.0-77.0); PLATELET COUNT 88 10^3/UL (140-415); POSITIVE DIFF @See below; RED BLOOD COUNT 3.46 10^6/ul (4.70-6.10); RED CELL DISTRIBUTION WIDTH 13.7 % (11.5-14.5)
[2018-04-11] MEDS: BENAZEPRIL 40 MG TAB PO ×2 (09:39→20:10)
[2018-04-11] MEDS: FLUTICASONE/VILANTEROL 100-25 INH (09:39)
[2018-04-11] MEDS: AMLODIPINE 10 MG TAB PO (09:39)
[2018-04-11] MEDS: FERROUS SULFATE (EC) 325 MG TAB PO (09:39)
[2018-04-11] MEDS: COLLAGENASE 5 GM (UD JAR) TOP (09:39)
[2018-04-11] MEDS: DULOXETINE 30 MG CAP DR PO (09:39)
[2018-04-11] MEDS: TIOTROPIUM 18 MCG CAPSULE INHA DEV INH (09:39)
[2018-04-11] MEDS: ALPRAZOLAM 0.25 MG TAB PO ×2 (09:39→22:06)
[2018-04-11] MEDS: HYDROCORTISONE 0.5% 28.35 GM CR TOP ×2 (09:41→20:31)
[2018-04-11 10:52] LABS: ANION GAP 13 (8-16); BLOOD UREA NITROGEN 51 mg/dl (7-20); CALCIUM 9.2 mg/dl (8.4-10.2); CARBON DIOXIDE 29 mmol/L (21-31); CHLORIDE 107 mmol/L (97-110); CREATININE 1.43 mg/dl (0.61-1.24); GLUCOSE 84 mg/dl (70-220); POTASSIUM 4.5 mmol/L (3.5-5.1); SODIUM 144 mmol/L (135-144)
[2018-04-11] MEDS: ALBUMIN HUMAN 25% 100 ML IV (12:21)
[2018-04-11] MEDS: SOD CHLORIDE 0.9% 1,000 ML IV (12:22)
[2018-04-11] MEDS: INSULIN GLARGINE [LANtus] 3 ML PEN SC (20:31)
[2018-04-11] MEDS: ALBUTEROL 0.083% (NEB) 2.5 MG/3 ML AMP HHN (20:45)
[2018-04-12] MEDS: [UNRECOGNIZED DRUG - REMARK] XX ×3 (01:30→17:30)
[2018-04-12] MEDS: ACCU-CHEK XX (02:00)
[2018-04-12] MEDS: HYDROmorphONE 1 MG/ML SYG IV ×5 (03:07→23:11)
[2018-04-12] MEDS: SOD CHLORIDE 0.9% 1,000 ML IV (04:55)
[2018-04-12] MEDS: FUROSEMIDE 20 MG TAB PO (06:26)
[2018-04-12] MEDS: PANTOPRAZOLE (EC) 40 MG TAB PO (06:26)
[2018-04-12] MEDS: INSULIN ASPART [NOVOLOG] 3 ML PEN SC ×7 (08:00→20:57)
[2018-04-12] MEDS: HYDROCORTISONE 0.5% 28.35 GM CR TOP ×2 (09:00→20:59)
[2018-04-12] MEDS: SENNA TAB PO ×2 (09:00→20:56)
[2018-04-12] MEDS: FERROUS SULFATE (EC) 325 MG TAB PO (10:19)
[2018-04-12] MEDS: AMLODIPINE 10 MG TAB PO (10:19)
[2018-04-12] MEDS: BENAZEPRIL 40 MG TAB PO ×2 (10:19→20:57)
[2018-04-12] MEDS: DULOXETINE 30 MG CAP DR PO (10:19)
[2018-04-12] MEDS: FLUTICASONE/VILANTEROL 100-25 INH (10:21)
[2018-04-12] MEDS: TIOTROPIUM 18 MCG CAPSULE INHA DEV INH (10:22)
[2018-04-12] MEDS: ALPRAZOLAM 0.25 MG TAB PO (10:33)
[2018-04-12 11:26] LABS: ADD MAN DIFF? NO
[2018-04-12 11:32] LABS: ABNORMAL IP MESSAGE 1; EOSINOPHILS # 0.3 10^3/ul (0.0-0.5); EOSINOPHILS % 6.5 % (0.0-7.0); HEMATOCRIT 28.3 % (42.0-52.0); HEMOGLOBIN 8.7 g/dl (14.0-18.0); LYMPHOCYTES # 0.8 10^3/ul (0.8-2.9); LYMPHOCYTES % 18.6 % (15.0-51.0); MEAN CORPUSCULAR HEMOGLOBIN 26.2 pg (29.0-33.0); MEAN CORPUSCULAR HGB CONC 30.7 g/dl (32.0-37.0); MEAN CORPUSCULAR VOLUME 85.2 fl (82.0-101.0); MONOCYTE # 0.4 10^3/ul (0.3-0.9); MONOCYTES % 8.7 % (0.0-11.0); NEUTROPHIL # 2.7 10^3/ul (1.6-7.5); NEUTROPHILS % 64.7 % (39.0-77.0); PLATELET COUNT 79 10^3/UL (140-415); POSITIVE DIFF @See below; RED BLOOD COUNT 3.32 10^6/ul (4.70-6.10); RED CELL DISTRIBUTION WIDTH 13.4 % (11.5-14.5)
[2018-04-12 11:32] LABS: WHITE BLOOD COUNT 4.2 10^3/ul (4.8-10.8)
[2018-04-12 12:07] LABS: ANION GAP 14 (8-16); BLOOD UREA NITROGEN 46 mg/dl (7-20); CALCIUM 9.1 mg/dl (8.4-10.2); CARBON DIOXIDE 28 mmol/L (21-31); CHLORIDE 105 mmol/L (97-110); CREATININE 1.24 mg/dl (0.61-1.24); GLUCOSE 111 mg/dl (70-220); POTASSIUM 4.9 mmol/L (3.5-5.1); SODIUM 142 mmol/L (135-144)
[2018-04-12] MEDS: COLLAGENASE 5 GM (UD JAR) TOP (16:22)
[2018-04-12] MEDS: INSULIN GLARGINE [LANtus] 3 ML PEN SC (21:01)
[2018-04-13] MEDS: ALPRAZOLAM 0.25 MG TAB PO (01:16)
[2018-04-13] MEDS: ACCU-CHEK XX (02:00)
[2018-04-13] MEDS: HYDROmorphONE 1 MG/ML SYG IV ×5 (03:10→21:40)
[2018-04-13] MEDS: PANTOPRAZOLE (EC) 40 MG TAB PO (06:35)
[2018-04-13] MEDS: FUROSEMIDE 20 MG TAB PO (06:35)
[2018-04-13] MEDS: INSULIN ASPART [NOVOLOG] 3 ML PEN SC ×7 (08:00→20:31)
[2018-04-13] MEDS: FLUTICASONE/VILANTEROL 100-25 INH (08:13)
[2018-04-13] MEDS: COLLAGENASE 5 GM (UD JAR) TOP (08:13)
[2018-04-13] MEDS: AMLODIPINE 10 MG TAB PO (08:13)
[2018-04-13] MEDS: SENNA TAB PO ×2 (08:13→20:32)
[2018-04-13] MEDS: FERROUS SULFATE (EC) 325 MG TAB PO (08:13)
[2018-04-13] MEDS: BENAZEPRIL 40 MG TAB PO ×2 (08:13→20:32)
[2018-04-13] MEDS: DULOXETINE 30 MG CAP DR PO (08:13)
[2018-04-13] MEDS: HYDROCORTISONE 0.5% 28.35 GM CR TOP ×2 (08:14→20:45)
[2018-04-13] MEDS: TIOTROPIUM 18 MCG CAPSULE INHA DEV INH (09:12)
[2018-04-13] MEDS: ALBUTEROL 0.083% (NEB) 2.5 MG/3 ML AMP HHN (09:25)
[2018-04-13] MEDS: [UNRECOGNIZED DRUG - REMARK] XX ×3 (09:30→16:50)
[2018-04-13 12:28] LABS: ADD MAN DIFF? NO
[2018-04-13 12:33] LABS: ABNORMAL IP MESSAGE 1; BASOPHIL # 0.1 10^3/ul (0.0-0.1); BASOPHILS % 0.9 % (0.0-2.0); EOSINOPHILS # 0.3 10^3/ul (0.0-0.5); EOSINOPHILS % 4.6 % (0.0-7.0); HEMOGLOBIN 8.6 g/dl (14.0-18.0); LYMPHOCYTES # 0.4 10^3/ul (0.8-2.9); LYMPHOCYTES % 6.8 % (15.0-51.0); MEAN CORPUSCULAR HEMOGLOBIN 26.4 pg (29.0-33.0); MEAN CORPUSCULAR HGB CONC 30.7 g/dl (32.0-37.0); MEAN CORPUSCULAR VOLUME 85.9 fl (82.0-101.0); MEAN PLATELET VOLUME 11.5 fl (7.4-10.4); MONOCYTE # 0.5 10^3/ul (0.3-0.9); MONOCYTES % 9.7 % (0.0-11.0); NEUTROPHIL # 4.3 10^3/ul (1.6-7.5); NEUTROPHILS % 77.5 % (39.0-77.0); PLATELET COUNT 94 10^3/UL (140-415); POSITIVE DIFF @See below; RED BLOOD COUNT 3.26 10^6/ul (4.70-6.10); RED CELL DISTRIBUTION WIDTH 13.5 % (11.5-14.5)
[2018-04-13 12:33] LABS: WHITE BLOOD COUNT 5.5 10^3/ul (4.8-10.8)
[2018-04-13 13:02] LABS: ANION GAP 14 (8-16); BLOOD UREA NITROGEN 39 mg/dl (7-20); CALCIUM 9.2 mg/dl (8.4-10.2); CARBON DIOXIDE 29 mmol/L (21-31); CHLORIDE 104 mmol/L (97-110); CREATININE 1.21 mg/dl (0.61-1.24); GLUCOSE 87 mg/dl (70-220); POTASSIUM 4.7 mmol/L (3.5-5.1); SODIUM 142 mmol/L (135-144)
[2018-04-13] MEDS: FUROSEMIDE 40 MG INJ IV (14:07)
[2018-04-13] MEDS: INSULIN GLARGINE [LANtus] 3 ML PEN SC (20:43)
[2018-04-14] MEDS: [UNRECOGNIZED DRUG - REMARK] XX ×3 (01:30→17:30)
[2018-04-14] MEDS: ACCU-CHEK XX (02:00)
[2018-04-14] MEDS: FUROSEMIDE 20 MG TAB PO (06:13)
[2018-04-14] MEDS: PANTOPRAZOLE (EC) 40 MG TAB PO (06:13)
[2018-04-14] MEDS: HYDROmorphONE 1 MG/ML SYG IV ×4 (06:13→23:05)
[2018-04-14] MEDS: INSULIN ASPART [NOVOLOG] 3 ML PEN SC ×7 (07:55→21:27)
[2018-04-14] MEDS: SENNA TAB PO ×2 (08:43→21:24)
[2018-04-14] MEDS: FERROUS SULFATE (EC) 325 MG TAB PO (08:43)
[2018-04-14] MEDS: DULOXETINE 30 MG CAP DR PO (08:43)
[2018-04-14] MEDS: TIOTROPIUM 18 MCG CAPSULE INHA DEV INH (08:44)
[2018-04-14] MEDS: FLUTICASONE/VILANTEROL 100-25 INH (08:44)
[2018-04-14] MEDS: BENAZEPRIL 40 MG TAB PO ×2 (08:44→21:25)
[2018-04-14] MEDS: COLLAGENASE 5 GM (UD JAR) TOP (08:46)
[2018-04-14] MEDS: AMLODIPINE 10 MG TAB PO (08:46)
[2018-04-14] MEDS: HYDROCORTISONE 0.5% 28.35 GM CR TOP ×2 (08:46→21:27)
[2018-04-14] MEDS: ALBUTEROL 0.083% (NEB) 2.5 MG/3 ML AMP HHN ×2 (10:40→13:41)
[2018-04-14 11:05] LABS: AADO2 Arterial 175.3 mmHg (7.0-24.0); Allen Test ACCEPTAB; Arterial Base Excess 2.8 mmol/L (-3.0-3); Arterial Blood Gas Oxygen Sat 85.2 mmHG (95.0-98.0); Arterial COHb 0.7 % (0.0-3.0); Arterial Fraction of Oxyhgb 84.6 % (93.0-99.0); Arterial HCO3 28.1 mmol/L (22.0-26.0); Arterial MetHb 0 % (0.0-1.5); Arterial Total Hemglobin 10.8 g/dl (12.0-18.0); Arterial pCO2 46.2 mmhg (35-45); MODE NASAL CANNULA; Site Right Radial
[2018-04-14 11:17] LABS: ADD MAN DIFF? NO
[2018-04-14 11:20] LABS: WHITE BLOOD COUNT 4.4 10^3/ul (4.8-10.8)
[2018-04-14 11:20] LABS: ABNORMAL IP MESSAGE 1; BASOPHILS % 0.5 % (0.0-2.0); EOSINOPHILS % 0.9 % (0.0-7.0); HEMATOCRIT 30.1 % (42.0-52.0); HEMOGLOBIN 9.3 g/dl (14.0-18.0); LYMPHOCYTES # 0.5 10^3/ul (0.8-2.9); LYMPHOCYTES % 10.5 % (15.0-51.0); MEAN CORPUSCULAR HEMOGLOBIN 26.3 pg (29.0-33.0); MEAN CORPUSCULAR HGB CONC 30.9 g/dl (32.0-37.0); MEAN PLATELET VOLUME 11.6 fl (7.4-10.4); MONOCYTE # 0.4 10^3/ul (0.3-0.9); MONOCYTES % 8.9 % (0.0-11.0); NEUTROPHIL # 3.5 10^3/ul (1.6-7.5); PLATELET COUNT 121 10^3/UL (140-415); POSITIVE DIFF @See below; RED BLOOD COUNT 3.54 10^6/ul (4.70-6.10); RED CELL DISTRIBUTION WIDTH 13.4 % (11.5-14.5)
[2018-04-14 11:43] LABS: ANION GAP 18 (8-16); BLOOD UREA NITROGEN 45 mg/dl (7-20); CALCIUM 9.1 mg/dl (8.4-10.2); CARBON DIOXIDE 27 mmol/L (21-31); CHLORIDE 100 mmol/L (97-110); CREATININE 1.28 mg/dl (0.61-1.24); GLUCOSE 263 mg/dl (70-220); MAGNESIUM 2.1 mg/dl (1.7-2.5); POTASSIUM 4.7 mmol/L (3.5-5.1); SODIUM 140 mmol/L (135-144)
[2018-04-14 11:56] LABS: B-TYPE NATRIURETIC PEPTIDE 8020 PG/ML (0-125)
[2018-04-14] MEDS ORDERED: METHYLPREDNISOLONE 125 MG INJ (13:42)
[2018-04-14] MEDS: METHYLPREDNISOLONE 125 MG INJ IV (13:49)
[2018-04-14] MEDS ORDERED: FUROSEMIDE 40 MG INJ (14:14)
[2018-04-14] MEDS: FUROSEMIDE 40 MG INJ IV (14:27)
[2018-04-14] MEDS ORDERED: FUROSEMIDE 40 MG INJ IV (14:30)
[2018-04-14 15:55] LABS: AADO2 Arterial 389.4 mmHg (7.0-24.0); Allen Test ACCEPTAB; Arterial Base Excess 3.2 mmol/L (-3.0-3); Arterial Blood Gas Oxygen Sat 99.4 mmHG (95.0-98.0); Arterial COHb 0.3 % (0.0-3.0); Arterial Fraction of Oxyhgb 98.9 % (93.0-99.0); Arterial HCO3 27.2 mmol/L (22.0-26.0); Arterial MetHb 0.2 % (0.0-1.5); Arterial pCO2 39.2 mmhg (35-45); Blood Gas PS 10; MODE MASK - BIPAP; Site Left Radial
[2018-04-14] MEDS ORDERED: VANCOMYCIN IV PER PHARMACY XX (16:00)
[2018-04-14] MEDS: MEROPENEM 500MG/50 ML (PMX) 50 ML IVPB (18:11)
[2018-04-14] MEDS: VANCOMYCIN 1.75 GM in SOD CHLORIDE 0.9% 500 ML IVPB (18:46)
[2018-04-14 19:02] LABS: TROPONIN-I 0.026 ng/ml (0.000-0.120)
[2018-04-14] MEDS: INSULIN GLARGINE [LANtus] 3 ML PEN SC (21:26)
[2018-04-15] MEDS: MEROPENEM 500MG/50 ML (PMX) 50 ML IVPB ×3 (01:21→20:37)
[2018-04-15] MEDS: ACCU-CHEK XX (01:21)
[2018-04-15] MEDS: [UNRECOGNIZED DRUG - REMARK] XX ×3 (01:30→17:30)
[2018-04-15 01:52] LABS: TROPONIN-I 0.039 ng/ml (0.000-0.120)
[2018-04-15 05:13] LABS: ADD MAN DIFF? NO
[2018-04-15 05:23] LABS: WHITE BLOOD COUNT 1.4 10^3/ul (4.8-10.8)
[2018-04-15 05:23] LABS: ABNORMAL IP MESSAGE 1; HEMOGLOBIN 7.7 g/dl (14.0-18.0); LYMPHOCYTES # 0.2 10^3/ul (0.8-2.9); LYMPHOCYTES % 14.6 % (15.0-51.0); MEAN CORPUSCULAR HEMOGLOBIN 25.8 pg (29.0-33.0); MEAN CORPUSCULAR HGB CONC 30.8 g/dl (32.0-37.0); MEAN CORPUSCULAR VOLUME 83.9 fl (82.0-101.0); MEAN PLATELET VOLUME 10.8 fl (7.4-10.4); MONOCYTE # 0.1 10^3/ul (0.3-0.9); MONOCYTES % 5.1 % (0.0-11.0); NEUTROPHIL # 1.1 10^3/ul (1.6-7.5); NEUTROPHILS % 79.6 % (39.0-77.0); PLATELET COUNT 115 10^3/UL (140-415); POSITIVE DIFF @See below; RED BLOOD COUNT 2.98 10^6/ul (4.70-6.10); RED CELL DISTRIBUTION WIDTH 13.2 % (11.5-14.5)
[2018-04-15] MEDS: PANTOPRAZOLE (EC) 40 MG TAB PO (05:32)
[2018-04-15] MEDS: FUROSEMIDE 40 MG INJ IV (05:32)
[2018-04-15 05:43] LABS: ANION GAP 13 (8-16); BLOOD UREA NITROGEN 55 mg/dl (7-20); CALCIUM 8.9 mg/dl (8.4-10.2); CARBON DIOXIDE 28 mmol/L (21-31); CHLORIDE 103 mmol/L (97-110); CREATININE 1.36 mg/dl (0.61-1.24); GLUCOSE 228 mg/dl (70-220); POTASSIUM 4.9 mmol/L (3.5-5.1); SODIUM 139 mmol/L (135-144)
[2018-04-15 05:49] LABS: TROPONIN-I 0.033 ng/ml (0.000-0.120)
[2018-04-15] MEDS: HYDROmorphONE 1 MG/ML SYG IV ×3 (06:12→20:35)
[2018-04-15] MEDS: INSULIN ASPART [NOVOLOG] 3 ML PEN SC ×7 (08:45→20:44)
[2018-04-15 09:05] LABS: AADO2 Arterial 350.5 mmHg (7.0-24.0); Allen Test ACCEPTAB; Arterial Base Excess 3.3 mmol/L (-3.0-3); Arterial Blood Gas Oxygen Sat 99.5 mmHG (95.0-98.0); Arterial COHb 0.3 % (0.0-3.0); Arterial Fraction of Oxyhgb 98.9 % (93.0-99.0); Arterial HCO3 28.7 mmol/L (22.0-26.0); Arterial MetHb 0.3 % (0.0-1.5); Arterial Total Hemglobin 10.3 g/dl (12.0-18.0); Arterial pCO2 47.7 mmhg (35-45); MODE MASK - NRB; Site Right Radial
[2018-04-15] MEDS: DULOXETINE 30 MG CAP DR PO (09:34)
[2018-04-15] MEDS: FERROUS SULFATE (EC) 325 MG TAB PO (09:35)
[2018-04-15] MEDS: BENAZEPRIL 20 MG TAB PO (09:35)
[2018-04-15] MEDS: SENNA TAB PO ×2 (09:35→20:35)
[2018-04-15] MEDS: AMLODIPINE 10 MG TAB PO (09:35)
[2018-04-15] MEDS: COLLAGENASE 5 GM (UD JAR) TOP (09:36)
[2018-04-15] MEDS: FLUTICASONE/VILANTEROL 100-25 INH (09:38)
[2018-04-15] MEDS: TIOTROPIUM 18 MCG CAPSULE INHA DEV INH (09:38)
[2018-04-15] MEDS: HYDROCORTISONE 0.5% 28.35 GM CR TOP ×2 (10:26→20:38)
[2018-04-15] MEDS: BUMETANIDE 6 MG in DEXTROSE 5% 36 ML IV (10:27)
[2018-04-15] MEDS: HYDROCODONE/APAP (5/325) TAB PO (11:12)
[2018-04-15] MEDS: HYDROmorphONE 2 MG TAB PO ×2 (13:11→17:30)
[2018-04-15] MEDS: LINAGLIPTIN 5 MG TABLET PO (16:04)
[2018-04-15] MEDS ORDERED: INSULIN GLARGINE [LANtus] 3 ML PEN SC (20:00)
[2018-04-15] MEDS: APIXABAN 5 MG TABLET PO (20:37)
[2018-04-15] MEDS: INSULIN GLARGINE [LANTus] (100 UNITS/ML) SYG SC (20:42)
[2018-04-16] MEDS: ALBUTEROL 0.083% (NEB) 2.5 MG/3 ML AMP HHN ×2 (01:08→08:31)
[2018-04-16] MEDS: HYDROmorphONE 1 MG/ML SYG IV ×4 (01:12→19:37)
[2018-04-16] MEDS: [UNRECOGNIZED DRUG - REMARK] XX ×3 (01:30→17:11)
[2018-04-16] MEDS: ACCU-CHEK XX (02:15)
[2018-04-16] MEDS: GUAIFENESIN/DM 5ML CUP PO ×3 (04:50→20:08)
[2018-04-16 05:11] LABS: ADD MAN DIFF? NO
[2018-04-16 05:18] LABS: ABNORMAL IP MESSAGE 1; BASOPHILS % 0.6 % (0.0-2.0); EOSINOPHILS % 1.2 % (0.0-7.0); HEMATOCRIT 26.5 % (42.0-52.0); HEMOGLOBIN 8.1 g/dl (14.0-18.0); LYMPHOCYTES # 0.3 10^3/ul (0.8-2.9); LYMPHOCYTES % 10.3 % (15.0-51.0); MEAN CORPUSCULAR HGB CONC 30.6 g/dl (32.0-37.0); MEAN CORPUSCULAR VOLUME 85.2 fl (82.0-101.0); MEAN PLATELET VOLUME 10.9 fl (7.4-10.4); MONOCYTE # 0.3 10^3/ul (0.3-0.9); MONOCYTES % 10.6 % (0.0-11.0); NEUTROPHIL # 2.5 10^3/ul (1.6-7.5); NEUTROPHILS % 76.7 % (39.0-77.0); PLATELET COUNT 144 10^3/UL (140-415); POSITIVE DIFF @See below; RED BLOOD COUNT 3.11 10^6/ul (4.70-6.10); RED CELL DISTRIBUTION WIDTH 13.5 % (11.5-14.5)
[2018-04-16 05:18] LABS: WHITE BLOOD COUNT 3.2 10^3/ul (4.8-10.8)
[2018-04-16 06:15] LABS: MAGNESIUM 2.1 mg/dl (1.7-2.5)
[2018-04-16 06:15] LABS: PHOSPHORUS 4.1 mg/dl (2.5-4.9)
[2018-04-16 06:16] LABS: ANION GAP 16 (8-16); BLOOD UREA NITROGEN 72 mg/dl (7-20); CALCIUM 8.6 mg/dl (8.4-10.2); CARBON DIOXIDE 29 mmol/L (21-31); CHLORIDE 100 mmol/L (97-110); CREATININE 1.49 mg/dl (0.61-1.24); GLUCOSE 223 mg/dl (70-220); POTASSIUM 4.3 mmol/L (3.5-5.1); SODIUM 141 mmol/L (135-144)
[2018-04-16] MEDS: PANTOPRAZOLE (EC) 40 MG TAB PO (06:20)
[2018-04-16] MEDS: INSULIN ASPART [NOVOLOG] 3 ML PEN SC ×7 (07:35→20:12)
[2018-04-16 07:59] LABS: HEMOGLOBIN A1C 5.5 % (0-5.9)
[2018-04-16 08:35] LABS: AADO2 Arterial 72.4 mmHg (7.0-24.0); Allen Test ACCEPTAB; Arterial Base Excess 3.1 mmol/L (-3.0-3); Arterial COHb 0.5 % (0.0-3.0); Arterial Fraction of Oxyhgb 94.4 % (93.0-99.0); Arterial HCO3 29.6 mmol/L (22.0-26.0); Arterial MetHb 0.1 % (0.0-1.5); Arterial Total Hemglobin 11.2 g/dl (12.0-18.0); Arterial pCO2 54.8 mmhg (35-45); MODE NASAL CANNULA; Site Right Radial
[2018-04-16] MEDS: DULOXETINE 30 MG CAP DR PO (09:02)
[2018-04-16] MEDS: LINAGLIPTIN 5 MG TABLET PO (09:02)
[2018-04-16] MEDS: APIXABAN 5 MG TABLET PO ×2 (09:03→20:07)
[2018-04-16] MEDS: AMLODIPINE 10 MG TAB PO (09:03)
[2018-04-16] MEDS: FERROUS SULFATE (EC) 325 MG TAB PO (09:03)
[2018-04-16] MEDS: FLUTICASONE/VILANTEROL 100-25 INH (09:03)
[2018-04-16] MEDS: COLLAGENASE 5 GM (UD JAR) TOP (09:03)
[2018-04-16] MEDS: SENNA TAB PO ×2 (09:03→20:07)
[2018-04-16] MEDS: HYDROCORTISONE 0.5% 28.35 GM CR TOP ×2 (09:04→20:09)
[2018-04-16] MEDS: INSULIN GLARGINE [LANTus] (100 UNITS/ML) SYG SC ×2 (09:08→20:12)
[2018-04-16] MEDS: MEROPENEM 500MG/50 ML (PMX) 50 ML IVPB ×2 (09:09→20:08)
[2018-04-16] MEDS: TIOTROPIUM 18 MCG CAPSULE INHA DEV INH (10:44)
[2018-04-16] MEDS: BUMETANIDE 12 MG in DEXTROSE 5% 72 ML IV (12:56)
[2018-04-16] MEDS: VANCOMYCIN 500MG/NS (PMX) 100 ML IVPB (17:02)
[2018-04-16] MEDS: MUPIROCIN 2% 22 GM OINT TOP (20:09)
[2018-04-16 22:07] LABS: RAPID PLASMA REAGIN NONREACTIVE (NR)
[2018-04-17] MEDS: HYDROmorphONE 1 MG/ML SYG IV ×6 (00:55→21:18)
[2018-04-17] MEDS: ALBUTEROL 0.083% (NEB) 2.5 MG/3 ML AMP HHN (01:05)
[2018-04-17] MEDS: GUAIFENESIN/DM 5ML CUP PO ×2 (01:05→04:59)
[2018-04-17] MEDS: [UNRECOGNIZED DRUG - REMARK] XX (01:30)
[2018-04-17] MEDS: ACCU-CHEK XX (02:02)
[2018-04-17] MEDS: PANTOPRAZOLE (EC) 40 MG TAB PO (05:00)
[2018-04-17 05:29] LABS: ADD MAN DIFF? NO
[2018-04-17 05:33] LABS: ABNORMAL IP MESSAGE 1; BASOPHILS % 0.5 % (0.0-2.0); EOSINOPHILS # 0.3 10^3/ul (0.0-0.5); HEMATOCRIT 30.2 % (42.0-52.0); HEMOGLOBIN 9.3 g/dl (14.0-18.0); LYMPHOCYTES # 0.5 10^3/ul (0.8-2.9); LYMPHOCYTES % 12.9 % (15.0-51.0); MEAN CORPUSCULAR HEMOGLOBIN 25.9 pg (29.0-33.0); MEAN CORPUSCULAR HGB CONC 30.8 g/dl (32.0-37.0); MEAN CORPUSCULAR VOLUME 84.1 fl (82.0-101.0); MEAN PLATELET VOLUME 10.8 fl (7.4-10.4); MONOCYTE # 0.5 10^3/ul (0.3-0.9); MONOCYTES % 11.7 % (0.0-11.0); NEUTROPHIL # 2.7 10^3/ul (1.6-7.5); NEUTROPHILS % 67.4 % (39.0-77.0); PLATELET COUNT 170 10^3/UL (140-415); POSITIVE DIFF @See below; RED BLOOD COUNT 3.59 10^6/ul (4.70-6.10); RED CELL DISTRIBUTION WIDTH 13.4 % (11.5-14.5)
[2018-04-17 06:05] LABS: ANION GAP 13 (8-16); BLOOD UREA NITROGEN 61 mg/dl (7-20); CARBON DIOXIDE 35 mmol/L (21-31); CHLORIDE 100 mmol/L (97-110); GLUCOSE 83 mg/dl (70-220); POTASSIUM 4.3 mmol/L (3.5-5.1); SODIUM 144 mmol/L (135-144)
[2018-04-17] MEDS: INSULIN ASPART [NOVOLOG] 3 ML PEN SC ×8 (07:35→20:32)
[2018-04-17] MEDS: FLUTICASONE/VILANTEROL 100-25 INH (08:58)
[2018-04-17] MEDS: TIOTROPIUM 18 MCG CAPSULE INHA DEV INH (08:58)
[2018-04-17] MEDS: MEROPENEM 500MG/50 ML (PMX) 50 ML IVPB ×2 (08:58→20:31)
[2018-04-17] MEDS: DULOXETINE 30 MG CAP DR PO (08:59)
[2018-04-17] MEDS: SENNA TAB PO ×2 (08:59→20:31)
[2018-04-17] MEDS: MUPIROCIN 2% 22 GM OINT TOP ×2 (08:59→20:32)
[2018-04-17] MEDS: FERROUS SULFATE (EC) 325 MG TAB PO (08:59)
[2018-04-17] MEDS: AMLODIPINE 10 MG TAB PO (08:59)
[2018-04-17] MEDS: APIXABAN 5 MG TABLET PO ×2 (08:59→20:31)
[2018-04-17] MEDS: LINAGLIPTIN 5 MG TABLET PO (09:00)
[2018-04-17] MEDS: HYDROCORTISONE 0.5% 28.35 GM CR TOP ×2 (09:00→20:32)
[2018-04-17] MEDS: COLLAGENASE 5 GM (UD JAR) TOP (09:00)
[2018-04-17] MEDS: BUMETANIDE 1 MG INJ IV (12:19)
[2018-04-17] MEDS: INSULIN GLARGINE [LANTus] (100 UNITS/ML) SYG SC (20:34)
[2018-04-18] MEDS: ACCU-CHEK XX (02:00)
[2018-04-18] MEDS: HYDROmorphONE 1 MG/ML SYG IV ×5 (02:03→21:12)
[2018-04-18] MEDS: BUMETANIDE 1 MG INJ IV ×2 (05:13→17:40)
[2018-04-18] MEDS: PANTOPRAZOLE (EC) 40 MG TAB PO (05:13)
[2018-04-18] MEDS: INSULIN ASPART [NOVOLOG] 3 ML PEN SC ×7 (07:55→20:16)
[2018-04-18] MEDS: LINAGLIPTIN 5 MG TABLET PO (09:07)
[2018-04-18] MEDS: FERROUS SULFATE (EC) 325 MG TAB PO (09:07)
[2018-04-18] MEDS: AMLODIPINE 10 MG TAB PO (09:07)
[2018-04-18] MEDS: DULOXETINE 30 MG CAP DR PO (09:08)
[2018-04-18] MEDS: HYDROCORTISONE 0.5% 28.35 GM CR TOP ×2 (09:08→20:25)
[2018-04-18] MEDS: SENNA TAB PO ×2 (09:08→20:26)
[2018-04-18] MEDS: MUPIROCIN 2% 22 GM OINT TOP ×2 (09:08→20:26)
[2018-04-18] MEDS: FLUTICASONE/VILANTEROL 100-25 INH (09:09)
[2018-04-18] MEDS: MEROPENEM 500MG/50 ML (PMX) 50 ML IVPB ×2 (09:16→20:53)
[2018-04-18 11:56] LABS: ADD MAN DIFF? NO
[2018-04-18 12:00] LABS: EOSINOPHILS # 0.4 10^3/ul (0.0-0.5); EOSINOPHILS % 10.4 % (0.0-7.0); HEMATOCRIT 31.1 % (42.0-52.0); HEMOGLOBIN 9.5 g/dl (14.0-18.0); LYMPHOCYTES # 0.9 10^3/ul (0.8-2.9); LYMPHOCYTES % 23.4 % (15.0-51.0); MEAN CORPUSCULAR HEMOGLOBIN 25.7 pg (29.0-33.0); MEAN CORPUSCULAR HGB CONC 30.5 g/dl (32.0-37.0); MEAN CORPUSCULAR VOLUME 84.3 fl (82.0-101.0); MEAN PLATELET VOLUME 10.4 fl (7.4-10.4); MONOCYTE # 0.5 10^3/ul (0.3-0.9); MONOCYTES % 12.4 % (0.0-11.0); NEUTROPHIL # 2.1 10^3/ul (1.6-7.5); NEUTROPHILS % 52.3 % (39.0-77.0); PLATELET COUNT 144 10^3/UL (140-415); RED BLOOD COUNT 3.69 10^6/ul (4.70-6.10); RED CELL DISTRIBUTION WIDTH 13.6 % (11.5-14.5)
[2018-04-18 12:18] LABS: ANION GAP 12 (8-16); BLOOD UREA NITROGEN 63 mg/dl (7-20); CALCIUM 8.9 mg/dl (8.4-10.2); CARBON DIOXIDE 36 mmol/L (21-31); CHLORIDE 100 mmol/L (97-110); CREATININE 1.42 mg/dl (0.61-1.24); GLUCOSE 138 mg/dl (70-220); POTASSIUM 4.5 mmol/L (3.5-5.1); SODIUM 143 mmol/L (135-144)
[2018-04-18] MEDS: LIDOCAINE 1% (MDV) 10 ML INJ (12:52)
[2018-04-18] MEDS: TIOTROPIUM 18 MCG CAPSULE INHA DEV INH (13:05)
[2018-04-18] MEDS: APIXABAN 5 MG TABLET PO ×2 (13:06→20:26)
[2018-04-18] MEDS: ASCORBIC ACID 500 MG TAB GTB (15:23)
[2018-04-18] MEDS: COLLAGENASE 5 GM (UD JAR) TOP (15:23)
[2018-04-18] MEDS: MULTIVITAMINS THERAPEUTIC TAB PO (15:23)
[2018-04-18 17:49] LABS: VANCOMYCIN,TROUGH 20.1 ug/ml (10.0-20.0)
[2018-04-18] MEDS: INSULIN GLARGINE [LANTus] (100 UNITS/ML) SYG SC (20:28)
[2018-04-19] MEDS: HYDROmorphONE 1 MG/ML SYG IV ×6 (01:13→22:12)
[2018-04-19] MEDS: ACCU-CHEK XX (02:07)
[2018-04-19] MEDS: BUMETANIDE 1 MG INJ IV ×2 (05:06→17:34)
[2018-04-19] MEDS: PANTOPRAZOLE (EC) 40 MG TAB PO (05:06)
[2018-04-19] MEDS: INSULIN ASPART [NOVOLOG] 3 ML PEN SC ×7 (07:55→20:54)
[2018-04-19] MEDS: MEROPENEM 500MG/50 ML (PMX) 50 ML IVPB ×2 (08:11→22:12)
[2018-04-19] MEDS: TIOTROPIUM 18 MCG CAPSULE INHA DEV INH (08:11)
[2018-04-19] MEDS: ASCORBIC ACID 500 MG TAB GTB (08:12)
[2018-04-19] MEDS: LINAGLIPTIN 5 MG TABLET PO (08:12)
[2018-04-19] MEDS: AMLODIPINE 10 MG TAB PO (08:12)
[2018-04-19] MEDS: SENNA TAB PO ×2 (08:13→20:43)
[2018-04-19] MEDS: MULTIVITAMINS THERAPEUTIC TAB PO (08:13)
[2018-04-19] MEDS: FERROUS SULFATE (EC) 325 MG TAB PO (08:13)
[2018-04-19] MEDS: COLLAGENASE 5 GM (UD JAR) TOP (08:14)
[2018-04-19] MEDS: APIXABAN 5 MG TABLET PO ×2 (08:14→20:43)
[2018-04-19] MEDS: HYDROCORTISONE 0.5% 28.35 GM CR TOP ×2 (08:14→22:13)
[2018-04-19] MEDS: DULOXETINE 30 MG CAP DR PO (08:14)
[2018-04-19] MEDS: FLUTICASONE/VILANTEROL 100-25 INH (08:15)
[2018-04-19] MEDS: MUPIROCIN 2% 22 GM OINT TOP ×2 (08:15→22:12)
[2018-04-19] MEDS: INSULIN GLARGINE [LANTus] (100 UNITS/ML) SYG SC (20:54)
[2018-04-19] MEDS ORDERED: METOPROLOL 5 MG INJ IV (22:00)
[2018-04-19] MEDS: METOPROLOL 25 MG TAB PO (22:24)
[2018-04-20] MEDS: ACCU-CHEK XX (02:06)
[2018-04-20] MEDS: BUMETANIDE 1 MG INJ IV ×2 (06:14→17:44)
[2018-04-20] MEDS: PANTOPRAZOLE (EC) 40 MG TAB PO (06:14)
[2018-04-20 06:56] LABS: VANCOMYCIN,RANDOM 19.2 ug/ml
[2018-04-20] MEDS: INSULIN ASPART [NOVOLOG] 3 ML PEN SC ×7 (07:51→20:43)
[2018-04-20] MEDS: DULOXETINE 30 MG CAP DR PO (08:12)
[2018-04-20] MEDS: HYDROmorphONE 1 MG/ML SYG IV ×4 (08:12→21:50)
[2018-04-20] MEDS: ASCORBIC ACID 500 MG TAB GTB (08:12)
[2018-04-20] MEDS: SENNA TAB PO ×2 (08:12→20:33)
[2018-04-20] MEDS: AMLODIPINE 10 MG TAB PO (08:12)
[2018-04-20] MEDS: MULTIVITAMINS THERAPEUTIC TAB PO (08:13)
[2018-04-20] MEDS: METOPROLOL 25 MG TAB PO ×2 (08:13→20:34)
[2018-04-20] MEDS: APIXABAN 5 MG TABLET PO ×2 (08:13→20:33)
[2018-04-20] MEDS: FLUTICASONE/VILANTEROL 100-25 INH (08:13)
[2018-04-20] MEDS: LINAGLIPTIN 5 MG TABLET PO (08:13)
[2018-04-20] MEDS: FERROUS SULFATE (EC) 325 MG TAB PO (08:13)
[2018-04-20] MEDS: TIOTROPIUM 18 MCG CAPSULE INHA DEV INH (08:14)
[2018-04-20] MEDS: MUPIROCIN 2% 22 GM OINT TOP ×2 (08:14→20:35)
[2018-04-20] MEDS: COLLAGENASE 5 GM (UD JAR) TOP (08:14)
[2018-04-20] MEDS: HYDROCORTISONE 0.5% 28.35 GM CR TOP ×2 (08:14→20:36)
[2018-04-20] MEDS: MEROPENEM 500MG/50 ML (PMX) 50 ML IVPB ×2 (08:22→20:47)
[2018-04-20] MEDS: ALPRAZOLAM 0.25 MG TAB PO (10:12)
[2018-04-20] MEDS: INSULIN GLARGINE [LANTus] (100 UNITS/ML) SYG SC (20:42)
[2018-04-21] MEDS: ACCU-CHEK XX (01:45)
[2018-04-21] MEDS: HYDROmorphONE 1 MG/ML SYG IV ×4 (01:46→23:33)
[2018-04-21] MEDS: BUMETANIDE 1 MG INJ IV ×2 (05:54→17:47)
[2018-04-21] MEDS: PANTOPRAZOLE (EC) 40 MG TAB PO (05:54)
[2018-04-21] MEDS: INSULIN ASPART [NOVOLOG] 3 ML PEN SC ×7 (07:55→20:24)
[2018-04-21 09:02] LABS: ADD MAN DIFF? NO
[2018-04-21 09:08] LABS: BASOPHIL # 0.1 10^3/ul (0.0-0.1); EOSINOPHILS # 0.6 10^3/ul (0.0-0.5); EOSINOPHILS % 11.3 % (0.0-7.0); HEMATOCRIT 32.1 % (42.0-52.0); HEMOGLOBIN 9.7 g/dl (14.0-18.0); LYMPHOCYTES # 1.3 10^3/ul (0.8-2.9); LYMPHOCYTES % 25.8 % (15.0-51.0); MEAN CORPUSCULAR HEMOGLOBIN 25.9 pg (29.0-33.0); MEAN CORPUSCULAR HGB CONC 30.2 g/dl (32.0-37.0); MEAN CORPUSCULAR VOLUME 85.6 fl (82.0-101.0); MONOCYTE # 0.6 10^3/ul (0.3-0.9); MONOCYTES % 11.3 % (0.0-11.0); NEUTROPHIL # 2.5 10^3/ul (1.6-7.5); NEUTROPHILS % 50.2 % (39.0-77.0); PLATELET COUNT 190 10^3/UL (140-415); RED BLOOD COUNT 3.75 10^6/ul (4.70-6.10); RED CELL DISTRIBUTION WIDTH 13.3 % (11.5-14.5)
[2018-04-21] MEDS: DULOXETINE 30 MG CAP DR PO (09:11)
[2018-04-21] MEDS: LINAGLIPTIN 5 MG TABLET PO (09:11)
[2018-04-21] MEDS: TIOTROPIUM 18 MCG CAPSULE INHA DEV INH (09:11)
[2018-04-21] MEDS: MULTIVITAMINS THERAPEUTIC TAB PO (09:12)
[2018-04-21] MEDS: FERROUS SULFATE (EC) 325 MG TAB PO (09:12)
[2018-04-21] MEDS: AMLODIPINE 10 MG TAB PO (09:12)
[2018-04-21] MEDS: SENNA TAB PO ×2 (09:12→20:44)
[2018-04-21] MEDS: METOPROLOL 25 MG TAB PO ×2 (09:13→20:44)
[2018-04-21] MEDS: APIXABAN 5 MG TABLET PO ×2 (09:13→20:45)
[2018-04-21] MEDS: ASCORBIC ACID 500 MG TAB GTB (09:13)
[2018-04-21] MEDS: COLLAGENASE 5 GM (UD JAR) TOP (09:14)
[2018-04-21] MEDS: HYDROCORTISONE 0.5% 28.35 GM CR TOP ×2 (09:14→20:50)
[2018-04-21] MEDS: FLUTICASONE/VILANTEROL 100-25 INH (09:14)
[2018-04-21] MEDS: MUPIROCIN 2% 22 GM OINT TOP ×2 (09:14→20:49)
[2018-04-21 10:06] LABS: ANION GAP 12 (8-16); BLOOD UREA NITROGEN 61 mg/dl (7-20); CALCIUM 8.9 mg/dl (8.4-10.2); CARBON DIOXIDE 33 mmol/L (21-31); CHLORIDE 102 mmol/L (97-110); CREATININE 1.17 mg/dl (0.61-1.24); GLUCOSE 73 mg/dl (70-220); MAGNESIUM 2.3 mg/dl (1.7-2.5); POTASSIUM 4.6 mmol/L (3.5-5.1); SODIUM 142 mmol/L (135-144)
[2018-04-21] MEDS: INSULIN GLARGINE [LANTus] (100 UNITS/ML) SYG SC (20:23)
[2018-04-22] MEDS: ACCU-CHEK XX (02:08)
[2018-04-22] MEDS: ALPRAZOLAM 0.25 MG TAB PO (02:54)
[2018-04-22] MEDS: HYDROmorphONE 1 MG/ML SYG IV ×4 (03:20→21:29)
[2018-04-22] MEDS: BUMETANIDE 1 MG INJ IV ×2 (06:12→17:58)
[2018-04-22] MEDS: PANTOPRAZOLE (EC) 40 MG TAB PO (06:12)
[2018-04-22] MEDS: INSULIN ASPART [NOVOLOG] 3 ML PEN SC ×7 (07:55→21:51)
[2018-04-22] MEDS: COLLAGENASE 5 GM (UD JAR) TOP (08:34)
[2018-04-22] MEDS: TIOTROPIUM 18 MCG CAPSULE INHA DEV INH (08:34)
[2018-04-22] MEDS: ASCORBIC ACID 500 MG TAB GTB (08:35)
[2018-04-22] MEDS: FLUTICASONE/VILANTEROL 100-25 INH (08:35)
[2018-04-22] MEDS: MUPIROCIN 2% 22 GM OINT TOP ×2 (08:35→21:37)
[2018-04-22] MEDS: HYDROCORTISONE 0.5% 28.35 GM CR TOP ×2 (08:35→21:37)
[2018-04-22] MEDS: DULOXETINE 30 MG CAP DR PO (08:35)
[2018-04-22] MEDS: SENNA TAB PO ×2 (08:36→21:30)
[2018-04-22] MEDS: MULTIVITAMINS THERAPEUTIC TAB PO (08:36)
[2018-04-22] MEDS: METOPROLOL 25 MG TAB PO ×2 (08:36→21:30)
[2018-04-22] MEDS: APIXABAN 5 MG TABLET PO ×2 (08:36→21:30)
[2018-04-22] MEDS: AMLODIPINE 10 MG TAB PO (08:36)
[2018-04-22] MEDS: FERROUS SULFATE (EC) 325 MG TAB PO (08:36)
[2018-04-22] MEDS: LINAGLIPTIN 5 MG TABLET PO (08:36)
[2018-04-22] MEDS: INSULIN GLARGINE [LANTus] (100 UNITS/ML) SYG SC (22:13)
[2018-04-23] MEDS: ACCU-CHEK XX (02:00)
[2018-04-23] MEDS: HYDROmorphONE 1 MG/ML SYG IV ×5 (02:29→23:27)
[2018-04-23] MEDS: PANTOPRAZOLE (EC) 40 MG TAB PO (06:36)
[2018-04-23] MEDS: BUMETANIDE 1 MG INJ IV ×2 (06:37→17:23)
[2018-04-23] MEDS: INSULIN ASPART [NOVOLOG] 3 ML PEN SC ×7 (07:51→22:20)
[2018-04-23] MEDS: MUPIROCIN 2% 22 GM OINT TOP ×2 (08:27→22:20)
[2018-04-23] MEDS: COLLAGENASE 5 GM (UD JAR) TOP (08:27)
[2018-04-23] MEDS: HYDROCORTISONE 0.5% 28.35 GM CR TOP ×2 (08:27→22:20)
[2018-04-23] MEDS: FERROUS SULFATE (EC) 325 MG TAB PO (08:28)
[2018-04-23] MEDS: ASCORBIC ACID 500 MG TAB GTB (08:28)
[2018-04-23] MEDS: DULOXETINE 30 MG CAP DR PO (08:28)
[2018-04-23] MEDS: SENNA TAB PO ×2 (08:29→22:19)
[2018-04-23] MEDS: APIXABAN 5 MG TABLET PO ×2 (08:29→22:19)
[2018-04-23] MEDS: AMLODIPINE 10 MG TAB PO (08:29)
[2018-04-23] MEDS: LINAGLIPTIN 5 MG TABLET PO (08:29)
[2018-04-23] MEDS: TIOTROPIUM 18 MCG CAPSULE INHA DEV INH (08:30)
[2018-04-23] MEDS: METOPROLOL 25 MG TAB PO ×2 (08:30→22:19)
[2018-04-23] MEDS: FLUTICASONE/VILANTEROL 100-25 INH (08:31)
[2018-04-23] MEDS: MULTIVITAMINS THERAPEUTIC TAB PO (08:31)
[2018-04-23] MEDS: ALPRAZOLAM 0.25 MG TAB PO (14:58)
[2018-04-23] MEDS: INSULIN GLARGINE [LANTus] (100 UNITS/ML) SYG SC (22:32)
[2018-04-24] MEDS: ACCU-CHEK XX (02:00)
[2018-04-24] MEDS: PANTOPRAZOLE (EC) 40 MG TAB PO ×2 (05:33→05:46)
[2018-04-24] MEDS: BUMETANIDE 1 MG INJ IV ×2 (05:35→18:32)
[2018-04-24] MEDS: HYDROmorphONE 1 MG/ML SYG IV ×4 (06:48→20:05)
[2018-04-24] MEDS: INSULIN ASPART [NOVOLOG] 3 ML PEN SC ×7 (07:40→20:19)
[2018-04-24 09:08] LABS: ADD MAN DIFF? NO
[2018-04-24 09:20] LABS: WHITE BLOOD COUNT 5.9 10^3/ul (4.8-10.8)
[2018-04-24 09:20] LABS: BASOPHIL # 0.1 10^3/ul (0.0-0.1); BASOPHILS % 0.8 % (0.0-2.0); EOSINOPHILS # 0.4 10^3/ul (0.0-0.5); EOSINOPHILS % 6.5 % (0.0-7.0); HEMATOCRIT 33.2 % (42.0-52.0); HEMOGLOBIN 10.1 g/dl (14.0-18.0); LYMPHOCYTES # 1.3 10^3/ul (0.8-2.9); LYMPHOCYTES % 21.2 % (15.0-51.0); MEAN CORPUSCULAR HEMOGLOBIN 25.2 pg (29.0-33.0); MEAN CORPUSCULAR HGB CONC 30.4 g/dl (32.0-37.0); MEAN CORPUSCULAR VOLUME 82.8 fl (82.0-101.0); MEAN PLATELET VOLUME 11.2 fl (7.4-10.4); MONOCYTE # 0.6 10^3/ul (0.3-0.9); NEUTROPHIL # 3.6 10^3/ul (1.6-7.5); NEUTROPHILS % 60.8 % (39.0-77.0); PLATELET COUNT 254 10^3/UL (140-415); RED BLOOD COUNT 4.01 10^6/ul (4.70-6.10); RED CELL DISTRIBUTION WIDTH 13.3 % (11.5-14.5)
[2018-04-24] MEDS: FLUTICASONE/VILANTEROL 100-25 INH (09:22)
[2018-04-24] MEDS: TIOTROPIUM 18 MCG CAPSULE INHA DEV INH (09:23)
[2018-04-24] MEDS: MULTIVITAMINS THERAPEUTIC TAB PO (09:24)
[2018-04-24] MEDS: LINAGLIPTIN 5 MG TABLET PO (09:24)
[2018-04-24] MEDS: COLLAGENASE 5 GM (UD JAR) TOP (09:24)
[2018-04-24] MEDS: HYDROCORTISONE 0.5% 28.35 GM CR TOP ×2 (09:24→20:11)
[2018-04-24] MEDS: FERROUS SULFATE (EC) 325 MG TAB PO (09:24)
[2018-04-24] MEDS: DULOXETINE 30 MG CAP DR PO (09:24)
[2018-04-24] MEDS: APIXABAN 5 MG TABLET PO ×2 (09:24→20:10)
[2018-04-24] MEDS: ASCORBIC ACID 500 MG TAB GTB (09:25)
[2018-04-24] MEDS: METOPROLOL 25 MG TAB PO ×2 (09:25→20:10)
[2018-04-24] MEDS: SENNA TAB PO ×2 (09:25→20:11)
[2018-04-24] MEDS: MUPIROCIN 2% 22 GM OINT TOP ×2 (09:26→20:12)
[2018-04-24] MEDS: AMLODIPINE 10 MG TAB PO (09:26)
[2018-04-24 09:44] LABS: ANION GAP 11 (8-16); BLOOD UREA NITROGEN 68 mg/dl (7-20); CALCIUM 9.3 mg/dl (8.4-10.2); CARBON DIOXIDE 36 mmol/L (21-31); CHLORIDE 99 mmol/L (97-110); CREATININE 1.17 mg/dl (0.61-1.24); GLUCOSE 115 mg/dl (70-220); POTASSIUM 4.7 mmol/L (3.5-5.1); SODIUM 141 mmol/L (135-144)
[2018-04-24] MEDS: INSULIN GLARGINE [LANTus] (100 UNITS/ML) SYG SC (21:21)
[2018-04-25] MEDS: HYDROmorphONE 1 MG/ML SYG IV ×5 (00:08→20:07)
[2018-04-25] MEDS: ACCU-CHEK XX (02:00)
[2018-04-25] MEDS: PANTOPRAZOLE (EC) 40 MG TAB PO (05:54)
[2018-04-25] MEDS: BUMETANIDE 1 MG INJ IV ×2 (05:54→17:54)
[2018-04-25] MEDS: INSULIN ASPART [NOVOLOG] 3 ML PEN SC ×7 (07:52→20:11)
[2018-04-25] MEDS: COLLAGENASE 5 GM (UD JAR) TOP (08:05)
[2018-04-25] MEDS: FERROUS SULFATE (EC) 325 MG TAB PO (08:06)
[2018-04-25] MEDS: MULTIVITAMINS THERAPEUTIC TAB PO (08:06)
[2018-04-25] MEDS: AMLODIPINE 10 MG TAB PO (08:06)
[2018-04-25] MEDS: LINAGLIPTIN 5 MG TABLET PO (08:06)
[2018-04-25] MEDS: APIXABAN 5 MG TABLET PO ×2 (08:06→20:20)
[2018-04-25] MEDS: TIOTROPIUM 18 MCG CAPSULE INHA DEV INH (08:06)
[2018-04-25] MEDS: SENNA TAB PO ×2 (08:06→20:20)
[2018-04-25] MEDS: DULOXETINE 30 MG CAP DR PO (08:07)
[2018-04-25] MEDS: ASCORBIC ACID 500 MG TAB GTB (08:07)
[2018-04-25] MEDS: METOPROLOL 25 MG TAB PO ×2 (08:07→20:20)
[2018-04-25] MEDS: FLUTICASONE/VILANTEROL 100-25 INH (08:10)
[2018-04-25] MEDS: MUPIROCIN 2% 22 GM OINT TOP ×2 (08:10→20:25)
[2018-04-25] MEDS: HYDROCORTISONE 0.5% 28.35 GM CR TOP ×2 (08:11→20:26)
[2018-04-25] MEDS: HYDROmorphONE 2 MG TAB PO (13:26)
[2018-04-25] MEDS: INSULIN GLARGINE [LANTus] (100 UNITS/ML) SYG SC (20:17)
[2018-04-26] MEDS: HYDROmorphONE 1 MG/ML SYG IV ×6 (00:07→23:30)
[2018-04-26] MEDS: ACCU-CHEK XX (02:00)
[2018-04-26] MEDS: PANTOPRAZOLE (EC) 40 MG TAB PO (06:07)
[2018-04-26] MEDS: BUMETANIDE 1 MG INJ IV ×2 (06:07→17:58)
[2018-04-26] MEDS: INSULIN ASPART [NOVOLOG] 3 ML PEN SC ×7 (07:35→20:10)
[2018-04-26 08:25] LABS: ADD MAN DIFF? NO
[2018-04-26] MEDS: FLUTICASONE/VILANTEROL 100-25 INH (08:30)
[2018-04-26] MEDS: TIOTROPIUM 18 MCG CAPSULE INHA DEV INH (08:30)
[2018-04-26] MEDS: HYDROCORTISONE 0.5% 28.35 GM CR TOP ×2 (08:31→20:10)
[2018-04-26] MEDS: MUPIROCIN 2% 22 GM OINT TOP ×2 (08:31→20:10)
[2018-04-26] MEDS: METOPROLOL 25 MG TAB PO ×2 (08:33→20:09)
[2018-04-26] MEDS: SENNA TAB PO ×2 (08:33→20:09)
[2018-04-26] MEDS: AMLODIPINE 10 MG TAB PO (08:33)
[2018-04-26] MEDS: APIXABAN 5 MG TABLET PO ×2 (08:33→20:09)
[2018-04-26] MEDS: LINAGLIPTIN 5 MG TABLET PO (08:33)
[2018-04-26] MEDS: DULOXETINE 30 MG CAP DR PO (08:33)
[2018-04-26] MEDS: FERROUS SULFATE (EC) 325 MG TAB PO (08:33)
[2018-04-26] MEDS: ASCORBIC ACID 500 MG TAB GTB (08:33)
[2018-04-26] MEDS: COLLAGENASE 5 GM (UD JAR) TOP (08:33)
[2018-04-26 08:34] LABS: WHITE BLOOD COUNT 6.4 10^3/ul (4.8-10.8)
[2018-04-26 08:34] LABS: BASOPHILS % 0.6 % (0.0-2.0); EOSINOPHILS # 0.3 10^3/ul (0.0-0.5); EOSINOPHILS % 5.3 % (0.0-7.0); HEMATOCRIT 32.6 % (42.0-52.0); LYMPHOCYTES # 1.6 10^3/ul (0.8-2.9); LYMPHOCYTES % 25.8 % (15.0-51.0); MEAN CORPUSCULAR HEMOGLOBIN 25.3 pg (29.0-33.0); MEAN CORPUSCULAR HGB CONC 30.7 g/dl (32.0-37.0); MEAN CORPUSCULAR VOLUME 82.3 fl (82.0-101.0); MEAN PLATELET VOLUME 10.6 fl (7.4-10.4); MONOCYTE # 0.6 10^3/ul (0.3-0.9); MONOCYTES % 9.4 % (0.0-11.0); NEUTROPHIL # 3.7 10^3/ul (1.6-7.5); NEUTROPHILS % 58.4 % (39.0-77.0); PLATELET COUNT 231 10^3/UL (140-415); RED BLOOD COUNT 3.96 10^6/ul (4.70-6.10); RED CELL DISTRIBUTION WIDTH 13.3 % (11.5-14.5)
[2018-04-26] MEDS: MULTIVITAMINS THERAPEUTIC TAB PO (08:34)
[2018-04-26 08:55] LABS: ALANINE AMINOTRANSFERASE 36 IU/L (13-69); ALBUMIN 4.2 g/dl (3.3-4.9); ALKALINE PHOSPHATASE 180 IU/L (42-121); ANION GAP 11 (8-16); ASPARTATE AMINO TRANSFERASE 40 IU/L (15-46); BILIRUBIN,INDIRECT 0.6 mg/dl (0-1.1); BILIRUBIN,TOTAL 0.6 mg/dl (0.2-1.3); BLOOD UREA NITROGEN 70 mg/dl (7-20); CALCIUM 9.3 mg/dl (8.4-10.2); CARBON DIOXIDE 34 mmol/L (21-31); CHLORIDE 101 mmol/L (97-110); GLUCOSE 118 mg/dl (70-220); POTASSIUM 4.1 mmol/L (3.5-5.1); SODIUM 142 mmol/L (135-144); TOTAL PROTEIN 9.4 g/dl (6.1-8.1)
[2018-04-26 08:58] LABS: MAGNESIUM 2.2 mg/dl (1.7-2.5)
[2018-04-26] MEDS: INSULIN GLARGINE [LANTus] (100 UNITS/ML) SYG SC (21:23)
[2018-04-27] MEDS: ACCU-CHEK XX (02:00)
[2018-04-27] MEDS: HYDROmorphONE 1 MG/ML SYG IV ×4 (04:14→18:39)
[2018-04-27] MEDS: PANTOPRAZOLE (EC) 40 MG TAB PO (04:14)
[2018-04-27] MEDS: FERROUS SULFATE (EC) 325 MG TAB PO (08:19)
[2018-04-27] MEDS: BUMETANIDE 1 MG INJ IV (08:19)
[2018-04-27] MEDS: MULTIVITAMINS THERAPEUTIC TAB PO (08:19)
[2018-04-27] MEDS: SENNA TAB PO ×3 (08:19→23:40)
[2018-04-27] MEDS: DULOXETINE 30 MG CAP DR PO (08:19)
[2018-04-27] MEDS: APIXABAN 5 MG TABLET PO ×2 (08:19→23:43)
[2018-04-27] MEDS: LINAGLIPTIN 5 MG TABLET PO (08:19)
[2018-04-27] MEDS: ASCORBIC ACID 500 MG TAB GTB (08:19)
[2018-04-27] MEDS: COLLAGENASE 5 GM (UD JAR) TOP (08:19)
[2018-04-27] MEDS: AMLODIPINE 10 MG TAB PO (08:20)
[2018-04-27] MEDS: TIOTROPIUM 18 MCG CAPSULE INHA DEV INH (08:20)
[2018-04-27] MEDS: METOPROLOL 25 MG TAB PO ×2 (08:21→23:44)
[2018-04-27] MEDS: FLUTICASONE/VILANTEROL 100-25 INH (08:23)
[2018-04-27] MEDS: HYDROCORTISONE 0.5% 28.35 GM CR TOP ×2 (08:24→23:48)
[2018-04-27] MEDS: MUPIROCIN 2% 22 GM OINT TOP ×2 (08:25→23:49)
[2018-04-27] MEDS: INSULIN ASPART [NOVOLOG] 3 ML PEN SC ×7 (08:36→21:00)
[2018-04-27] MEDS: INSULIN GLARGINE [LANTus] (100 UNITS/ML) SYG SC (23:55)
[2018-04-28] MEDS: ACCU-CHEK XX (01:33)
[2018-04-28] MEDS: HYDROmorphONE 1 MG/ML SYG IV ×5 (01:34→21:08)
[2018-04-28] MEDS: PANTOPRAZOLE (EC) 40 MG TAB PO (06:03)
[2018-04-28] MEDS: INSULIN ASPART [NOVOLOG] 3 ML PEN SC ×7 (07:49→22:19)
[2018-04-28] MEDS: BUMETANIDE 1 MG INJ IV ×2 (08:43→16:09)
[2018-04-28] MEDS: COLLAGENASE 5 GM (UD JAR) TOP (08:44)
[2018-04-28] MEDS: MUPIROCIN 2% 22 GM OINT TOP ×2 (08:44→21:12)
[2018-04-28] MEDS: DULOXETINE 30 MG CAP DR PO (08:44)
[2018-04-28] MEDS: HYDROCORTISONE 0.5% 28.35 GM CR TOP ×2 (08:44→21:11)
[2018-04-28] MEDS: APIXABAN 5 MG TABLET PO ×2 (08:44→21:08)
[2018-04-28] MEDS: LINAGLIPTIN 5 MG TABLET PO (08:44)
[2018-04-28] MEDS: ASCORBIC ACID 500 MG TAB GTB (08:44)
[2018-04-28] MEDS: SENNA TAB PO ×2 (08:45→21:00)
[2018-04-28] MEDS: FERROUS SULFATE (EC) 325 MG TAB PO (08:45)
[2018-04-28] MEDS: BENAZEPRIL 5 MG TAB PO (08:45)
[2018-04-28] MEDS: TIOTROPIUM 18 MCG CAPSULE INHA DEV INH (08:45)
[2018-04-28] MEDS: MULTIVITAMINS THERAPEUTIC TAB PO (08:45)
[2018-04-28] MEDS: METOPROLOL 25 MG TAB PO ×2 (08:46→21:09)
[2018-04-28] MEDS: AMLODIPINE 10 MG TAB PO (08:46)
[2018-04-28] MEDS: FLUTICASONE/VILANTEROL 100-25 INH (08:47)
[2018-04-28] MEDS: ALPRAZOLAM 0.25 MG TAB PO (20:07)
[2018-04-28] MEDS: INSULIN GLARGINE [LANTus] (100 UNITS/ML) SYG SC (22:19)
[2018-04-29] MEDS: ACCU-CHEK XX (02:16)
[2018-04-29] MEDS: HYDROmorphONE 1 MG/ML SYG IV ×4 (02:24→15:32)
[2018-04-29] MEDS: COLLAGENASE 5 GM (UD JAR) TOP (03:55)
[2018-04-29] MEDS: PANTOPRAZOLE (EC) 40 MG TAB PO (05:30)
[2018-04-29 06:38] LABS: ADD MAN DIFF? NO
[2018-04-29 06:43] LABS: WHITE BLOOD COUNT 7.3 10^3/ul (4.8-10.8)
[2018-04-29 06:43] LABS: BASOPHILS % 0.4 % (0.0-2.0); EOSINOPHILS # 0.3 10^3/ul (0.0-0.5); EOSINOPHILS % 4.6 % (0.0-7.0); HEMATOCRIT 30.4 % (42.0-52.0); HEMOGLOBIN 9.3 g/dl (14.0-18.0); LYMPHOCYTES # 1.3 10^3/ul (0.8-2.9); LYMPHOCYTES % 18.2 % (15.0-51.0); MEAN CORPUSCULAR HEMOGLOBIN 25.3 pg (29.0-33.0); MEAN CORPUSCULAR HGB CONC 30.6 g/dl (32.0-37.0); MEAN CORPUSCULAR VOLUME 82.6 fl (82.0-101.0); MEAN PLATELET VOLUME 10.9 fl (7.4-10.4); MONOCYTE # 0.6 10^3/ul (0.3-0.9); MONOCYTES % 8.6 % (0.0-11.0); NEUTROPHILS % 67.7 % (39.0-77.0); PLATELET COUNT 206 10^3/UL (140-415); RED BLOOD COUNT 3.68 10^6/ul (4.70-6.10); RED CELL DISTRIBUTION WIDTH 13.3 % (11.5-14.5)
[2018-04-29 07:05] LABS: ANION GAP 11 (8-16); BLOOD UREA NITROGEN 57 mg/dl (7-20); CALCIUM 8.9 mg/dl (8.4-10.2); CARBON DIOXIDE 30 mmol/L (21-31); CHLORIDE 102 mmol/L (97-110); GLUCOSE 193 mg/dl (70-220); POTASSIUM 4.6 mmol/L (3.5-5.1); SODIUM 138 mmol/L (135-144)
[2018-04-29] MEDS: INSULIN ASPART [NOVOLOG] 3 ML PEN SC ×7 (08:08→21:52)
[2018-04-29] MEDS: DULOXETINE 30 MG CAP DR PO (09:03)
[2018-04-29] MEDS: APIXABAN 5 MG TABLET PO ×2 (09:03→21:50)
[2018-04-29] MEDS: AMLODIPINE 10 MG TAB PO (09:03)
[2018-04-29] MEDS: SENNA TAB PO ×2 (09:04→21:50)
[2018-04-29] MEDS: BENAZEPRIL 5 MG TAB PO (09:04)
[2018-04-29] MEDS: METOPROLOL 25 MG TAB PO ×2 (09:04→21:51)
[2018-04-29] MEDS: LINAGLIPTIN 5 MG TABLET PO (09:04)
[2018-04-29] MEDS: FLUTICASONE/VILANTEROL 100-25 INH (09:04)
[2018-04-29] MEDS: ASCORBIC ACID 500 MG TAB GTB (09:04)
[2018-04-29] MEDS: MULTIVITAMINS THERAPEUTIC TAB PO (09:04)
[2018-04-29] MEDS: FERROUS SULFATE (EC) 325 MG TAB PO (09:04)
[2018-04-29] MEDS: MUPIROCIN 2% 22 GM OINT TOP ×2 (09:05→21:55)
[2018-04-29] MEDS: BUMETANIDE 1 MG INJ IV (09:05)
[2018-04-29] MEDS: HYDROCORTISONE 0.5% 28.35 GM CR TOP ×2 (09:06→21:55)
[2018-04-29] MEDS: TIOTROPIUM 18 MCG CAPSULE INHA DEV INH (11:36)
[2018-04-29] MEDS: SOD CHLORIDE 0.45% 1,000 ML IV (13:46)
[2018-04-29] MEDS: INSULIN GLARGINE [LANTus] (100 UNITS/ML) SYG SC (23:15)
[2018-04-30] MEDS: ACCU-CHEK XX (02:00)
[2018-04-30] MEDS: HYDROmorphONE 1 MG/ML SYG IV ×4 (06:14→21:13)
[2018-04-30] MEDS: PANTOPRAZOLE (EC) 40 MG TAB PO (06:14)
[2018-04-30 07:08] LABS: ADD MAN DIFF? NO
[2018-04-30 07:15] LABS: BASOPHILS % 0.5 % (0.0-2.0); EOSINOPHILS # 0.2 10^3/ul (0.0-0.5); EOSINOPHILS % 5.2 % (0.0-7.0); HEMATOCRIT 23.7 % (42.0-52.0); HEMOGLOBIN 7.2 g/dl (14.0-18.0); LYMPHOCYTES # 0.8 10^3/ul (0.8-2.9); LYMPHOCYTES % 17.3 % (15.0-51.0); MEAN CORPUSCULAR HEMOGLOBIN 25.4 pg (29.0-33.0); MEAN CORPUSCULAR HGB CONC 30.4 g/dl (32.0-37.0); MEAN CORPUSCULAR VOLUME 83.7 fl (82.0-101.0); MONOCYTE # 0.3 10^3/ul (0.3-0.9); MONOCYTES % 6.1 % (0.0-11.0); NEUTROPHIL # 3.1 10^3/ul (1.6-7.5); PLATELET COUNT 108 10^3/UL (140-415); RED BLOOD COUNT 2.83 10^6/ul (4.70-6.10); RED CELL DISTRIBUTION WIDTH 13.5 % (11.5-14.5)
[2018-04-30 07:15] LABS: WHITE BLOOD COUNT 4.4 10^3/ul (4.8-10.8)
[2018-04-30] MEDS: INSULIN ASPART [NOVOLOG] 3 ML PEN SC ×7 (07:44→21:00)
[2018-04-30] MEDS: BUMETANIDE 1 MG INJ IV (09:43)
[2018-04-30] MEDS: TIOTROPIUM 18 MCG CAPSULE INHA DEV INH (09:43)
[2018-04-30] MEDS: COLLAGENASE 5 GM (UD JAR) TOP (09:43)
[2018-04-30] MEDS: FLUTICASONE/VILANTEROL 100-25 INH (09:43)
[2018-04-30] MEDS: DULOXETINE 30 MG CAP DR PO (09:44)
[2018-04-30] MEDS: MULTIVITAMINS THERAPEUTIC TAB PO (09:44)
[2018-04-30] MEDS: AMLODIPINE 10 MG TAB PO (09:44)
[2018-04-30] MEDS: BENAZEPRIL 5 MG TAB PO (09:44)
[2018-04-30] MEDS: METOPROLOL 25 MG TAB PO ×2 (09:44→21:12)
[2018-04-30] MEDS: ASCORBIC ACID 500 MG TAB GTB (09:44)
[2018-04-30] MEDS: FERROUS SULFATE (EC) 325 MG TAB PO (09:44)
[2018-04-30] MEDS: SENNA TAB PO ×2 (09:45→21:00)
[2018-04-30] MEDS: APIXABAN 5 MG TABLET PO ×2 (09:45→21:10)
[2018-04-30] MEDS: HYDROCORTISONE 0.5% 28.35 GM CR TOP ×2 (09:46→21:13)
[2018-04-30] MEDS: MUPIROCIN 2% 22 GM OINT TOP ×2 (09:46→21:13)
[2018-04-30] MEDS: LINAGLIPTIN 5 MG TABLET PO (09:51)
[2018-04-30 11:06] LABS: HEMATOCRIT 30.3 % (42.0-52.0); HEMOGLOBIN 9.5 g/dl (14.0-18.0)
[2018-04-30 11:23] LABS: ANION GAP 13 (8-16); BLOOD UREA NITROGEN 59 mg/dl (7-20); CALCIUM 9.1 mg/dl (8.4-10.2); CARBON DIOXIDE 27 mmol/L (21-31); CHLORIDE 104 mmol/L (97-110); GLUCOSE 276 mg/dl (70-220); POTASSIUM 4.6 mmol/L (3.5-5.1); SODIUM 139 mmol/L (135-144)
[2018-04-30] MEDS: SOD CHLORIDE 0.45% 1,000 ML IV (12:03)
[2018-04-30] MEDS: INSULIN GLARGINE [LANTus] (100 UNITS/ML) SYG SC (21:41)
[2018-05-01] MEDS: HYDROmorphONE 1 MG/ML SYG IV ×5 (01:01→17:13)
[2018-05-01] MEDS: SOD CHLORIDE 0.45% 1,000 ML IV (01:30)
[2018-05-01] MEDS: ACCU-CHEK XX (02:00)
[2018-05-01] MEDS: PANTOPRAZOLE (EC) 40 MG TAB PO (05:33)
[2018-05-01 06:09] LABS: ADD MAN DIFF? NO
[2018-05-01 06:17] LABS: WHITE BLOOD COUNT 5.5 10^3/ul (4.8-10.8)
[2018-05-01 06:17] LABS: BASOPHILS % 0.5 % (0.0-2.0); EOSINOPHILS # 0.4 10^3/ul (0.0-0.5); EOSINOPHILS % 7.3 % (0.0-7.0); HEMATOCRIT 30.4 % (42.0-52.0); HEMOGLOBIN 9.3 g/dl (14.0-18.0); LYMPHOCYTES # 1.2 10^3/ul (0.8-2.9); LYMPHOCYTES % 22.1 % (15.0-51.0); MEAN CORPUSCULAR HEMOGLOBIN 25.2 pg (29.0-33.0); MEAN CORPUSCULAR HGB CONC 30.6 g/dl (32.0-37.0); MEAN CORPUSCULAR VOLUME 82.4 fl (82.0-101.0); MEAN PLATELET VOLUME 10.9 fl (7.4-10.4); MONOCYTE # 0.4 10^3/ul (0.3-0.9); MONOCYTES % 7.8 % (0.0-11.0); NEUTROPHIL # 3.4 10^3/ul (1.6-7.5); NEUTROPHILS % 61.8 % (39.0-77.0); PLATELET COUNT 201 10^3/UL (140-415); RED BLOOD COUNT 3.69 10^6/ul (4.70-6.10); RED CELL DISTRIBUTION WIDTH 13.5 % (11.5-14.5)
[2018-05-01 06:44] LABS: ANION GAP 11 (8-16); BLOOD UREA NITROGEN 56 mg/dl (7-20); CALCIUM 9.2 mg/dl (8.4-10.2); CARBON DIOXIDE 30 mmol/L (21-31); CHLORIDE 104 mmol/L (97-110); CREATININE 0.98 mg/dl (0.61-1.24); GLUCOSE 149 mg/dl (70-220); POTASSIUM 4.6 mmol/L (3.5-5.1); SODIUM 140 mmol/L (135-144)
[2018-05-01] MEDS: INSULIN ASPART [NOVOLOG] 3 ML PEN SC ×6 (07:36→17:38)
[2018-05-01] MEDS: LINAGLIPTIN 5 MG TABLET PO (09:05)
[2018-05-01] MEDS: BUMETANIDE 1 MG INJ IV (09:05)
[2018-05-01] MEDS: TIOTROPIUM 18 MCG CAPSULE INHA DEV INH (09:05)
[2018-05-01] MEDS: DULOXETINE 30 MG CAP DR PO (09:05)
[2018-05-01] MEDS: AMLODIPINE 10 MG TAB PO (09:06)
[2018-05-01] MEDS: MUPIROCIN 2% 22 GM OINT TOP (09:06)
[2018-05-01] MEDS: COLLAGENASE 5 GM (UD JAR) TOP (09:06)
[2018-05-01] MEDS: BENAZEPRIL 10 MG TAB PO (09:06)
[2018-05-01] MEDS: SENNA TAB PO ×2 (09:06)
[2018-05-01] MEDS: ASCORBIC ACID 500 MG TAB GTB (09:06)
[2018-05-01] MEDS: APIXABAN 5 MG TABLET PO (09:06)
[2018-05-01] MEDS: METOPROLOL 25 MG TAB PO (09:06)
[2018-05-01] MEDS: FERROUS SULFATE (EC) 325 MG TAB PO (09:06)
[2018-05-01] MEDS: HYDROCORTISONE 0.5% 28.35 GM CR TOP (09:07)
[2018-05-01] MEDS: MULTIVITAMINS THERAPEUTIC TAB PO (09:07)
[2018-05-01] MEDS: FLUTICASONE/VILANTEROL 100-25 INH (09:07)
== END 2018-05-01 19:00 | DRG 242 ==
LOC: MS4 02-21 22:30 → TEL 04-13 10:26 → ICU 04-14 14:00 → TEL 04-17 17:37 → E/R 10:48 → PP2 04-12 20:15 → TEL 11:00
PROC: 0JH604Z Insertion of Pacemaker, Single Chamber into Chest Subcutaneous Tissue and Fascia, Open Approach (ICD-10-PCS; principal; 2018-03-31 12:30)
PROC: 02HK3JZ Insertion of Pacemaker Lead into Right Ventricle, Percutaneous Approach (ICD-10-PCS; 2018-03-31 12:30)
PROC: 07DR3ZX Extraction of Iliac Bone Marrow, Percutaneous Approach, Diagnostic (ICD-10-PCS; 2018-03-31 12:31)
PROC: 0W9B3ZZ Drainage of Left Pleural Cavity, Percutaneous Approach (ICD-10-PCS; 2018-03-31 12:31)
PROC: 5A09357 Assistance with Respiratory Ventilation, Less than 24 Consecutive Hours, Continuous Positive Airway Pressure (ICD-10-PCS; 2018-03-31 12:31)
DX: I11.0 Hypertensive heart disease with heart failure (principal); J18.9 Pneumonia, unspecified organism; L89.153 Pressure ulcer of sacral region, stage 3; A41.9 Sepsis, unspecified organism; J96.01 Acute respiratory failure with hypoxia; I25.810 Atherosclerosis of coronary artery bypass graft(s) without angina pectoris; I48.92 Unspecified atrial flutter; N17.9 Acute kidney failure, unspecified; D61.818 Other pancytopenia; J90 Pleural effusion, not elsewhere classified; I44.1 Atrioventricular block, second degree; I50.23 Acute on chronic systolic (congestive) heart failure; I42.9 Cardiomyopathy, unspecified; I48.91 Unspecified atrial fibrillation; D69.6 Thrombocytopenia, unspecified; Y95 Nosocomial condition; E11.9 Type 2 diabetes mellitus without complications; M25.561 Pain in right knee; M25.562 Pain in left knee; R07.89 Other chest pain; E11.649 Type 2 diabetes mellitus with hypoglycemia without coma; E11.69 Type 2 diabetes mellitus with other specified complication; J44.9 Chronic obstructive pulmonary disease, unspecified; Z95.3 Presence of xenogenic heart valve; Z79.4 Long term (current) use of insulin; Z91.19 Patient's noncompliance with other medical treatment and regimen; Z95.1 Presence of aortocoronary bypass graft; Z89.511 Acquired absence of right leg below knee; Z89.512 Acquired absence of left leg below knee
CPT/HCPCS: 32555; 36415; 36600; 71045; 77012; 80048; 80053; 80202; 82550; 82553; 82607; 82728; 82803; 82947; 82962; 83036; 83540; 83605; 83735; 83880; 84100; 84484; 85014; 85018; 85025; 85384; 85610; 85730; 86022; 86038; 86430; 86592; 86704; 86803; 87040; 87081; 87086; 87340; 88184; 88185; 88237; 88264; 88305; 88311; 88313; 88374; 93005; 94640; 94660; 94664; 96372; 96374; 96375; 96376; 97163; 99291-25

== ENCOUNTER 2018-05-15 19:32 | Inpatient (IN) | payer MEDICARE, MEDICAID ==
[2018-05-15 21:39] LABS: ADD MAN DIFF? NO
[2018-05-15 21:40] LABS: BASOPHIL # 0.1 10^3/ul (0.0-0.1); BASOPHILS % 0.6 % (0.0-2.0); EOSINOPHILS # 0.4 10^3/ul (0.0-0.5); EOSINOPHILS % 3.9 % (0.0-7.0); HEMATOCRIT 42.3 % (42.0-52.0); HEMOGLOBIN 13.5 g/dl (14.0-18.0); IMMATURE GRANS #M 0.04 10^3/ul; IMMATURE GRANS % (M) 0.4 %; LYMPHOCYTES # 2.2 10^3/ul (0.8-2.9); MEAN CORPUSCULAR HEMOGLOBIN 25.7 pg (29.0-33.0); MEAN CORPUSCULAR HGB CONC 31.9 g/dl (32.0-37.0); MEAN CORPUSCULAR VOLUME 80.4 fl (82.0-101.0); MEAN PLATELET VOLUME 9.8 fl (7.4-10.4); MONOCYTE # 0.8 10^3/ul (0.3-0.9); MONOCYTES % 8.1 % (0.0-11.0); NEUTROPHIL # 6.5 10^3/ul (1.6-7.5); PLATELET COUNT 268 10^3/UL (140-415); RED BLOOD COUNT 5.26 10^6/ul (4.70-6.10); RED CELL DISTRIBUTION WIDTH 14.4 % (11.5-14.5)
[2018-05-15 21:40] LABS: WHITE BLOOD COUNT 9.9 10^3/ul (4.8-10.8)
[2018-05-15] MEDS: ONDANSETRON 4 MG INJ IV (21:40)
[2018-05-15] MEDS: HYDROmorphONE 1 MG/ML SYG IV (21:41)
[2018-05-15] MEDS: NITROGLYCERIN 2% 1 GM OINT PKT TD (21:41)
[2018-05-15 22:03] LABS: ALANINE AMINOTRANSFERASE 48 IU/L (13-69); ALBUMIN 4.1 g/dl (3.3-4.9); ALBUMIN/GLOBULIN RATIO 0.68; ALKALINE PHOSPHATASE 206 IU/L (42-121); ANION GAP 17 (8-16); ASPARTATE AMINO TRANSFERASE 43 IU/L (15-46); BILIRUBIN,INDIRECT 0.2 mg/dl (0-1.1); BILIRUBIN,TOTAL 0.2 mg/dl (0.2-1.3); BLOOD UREA NITROGEN 62 mg/dl (7-20); CALCIUM 9.8 mg/dl (8.4-10.2); CARBON DIOXIDE 25 mmol/L (21-31); CHLORIDE 104 mmol/L (97-110); CREATININE 1.57 mg/dl (0.61-1.24); GLUCOSE 171 mg/dl (70-220); SODIUM 140 mmol/L (135-144); TOTAL PROTEIN 10.1 g/dl (6.1-8.1)
[2018-05-15 22:14] LABS: POTASSIUM 6.1 mmol/L (3.5-5.1)
[2018-05-15 22:15] LABS: B-TYPE NATRIURETIC PEPTIDE 2660 PG/ML (0-125)
[2018-05-15 22:37] LABS: PARTIAL THROMBOPLASTIN TIME 40.5 Sec (25.0-35.0)
[2018-05-15 22:41] LABS: INR 1.42; PROTIME 17.6 Sec (11.9-14.9); PT RATIO 1.4
[2018-05-15] MEDS ORDERED: ONDANSETRON 4 MG INJ IV (23:00)
[2018-05-15] MEDS ORDERED: ACETAMINOPHEN 325 MG TAB PO (23:00)
[2018-05-15] MEDS: FUROSEMIDE 40 MG INJ IV (23:00)
[2018-05-15] MEDS: INSULIN REGULAR, HUMAN 100 UNIT/1 ML 3ML VIAL IVP (23:34)
[2018-05-15] MEDS: NA BICARBONATE 8.4% 50 ML SYG IV (23:35)
[2018-05-15] MEDS: DEXTROSE 50% 50 ML SYRINGE IV (23:35)
[2018-05-15 23:40] LABS: POTASSIUM 6.2 mmol/L (3.5-5.1)
[2018-05-16] MEDS ORDERED: NA POLYST SULFON 15 GM/60 ML BTL PO
[2018-05-16] MEDS: NA POLYST SULFON 15 GM/60 ML BTL PO (01:22)
[2018-05-16] MEDS: ONDANSETRON 4 MG INJ IV ×2 (05:02→13:33)
[2018-05-16] MEDS: HYDROmorphONE 1 MG/ML SYG IV (05:02)
[2018-05-16 06:54] LABS: B-TYPE NATRIURETIC PEPTIDE 2790 PG/ML (0-125)
[2018-05-16 06:59] LABS: TROPONIN-I 0.018 ng/ml (0.000-0.120)
[2018-05-16] MEDS: DIPHENHYDRAMINE 25 MG CAP PO ×2 (08:52→23:09)
[2018-05-16] MEDS ORDERED: NACL 0.9% 3 ML SYG IV (11:30)
[2018-05-16] MEDS: ISOSORBIDE DINITRATE 10 MG TAB PO ×2 (13:34→20:30)
[2018-05-16] MEDS: morphine 2 MG INJ IV ×2 (13:37→18:07)
[2018-05-16 16:02] LABS: TROPONIN-I < 0.010 ng/ml (0.000-0.120)
[2018-05-16] MEDS ORDERED: PENDING SANTYL ORDER FOR WOUND CARE XX (17:00)
[2018-05-16] MEDS: METOPROLOL 25 MG TAB PO (20:30)
[2018-05-16] MEDS: FAMOTIDINE 20 MG TAB PO (20:30)
[2018-05-16] MEDS: OXYCODONE/ACETAMINOPHEN (5/325) TAB PO (20:30)
[2018-05-16] MEDS: APIXABAN 5 MG TABLET PO (20:30)
[2018-05-16] MEDS: SENNA TAB PO (20:31)
[2018-05-16] MEDS ORDERED: GLUCOSE GEL 15 GRAM TUBE PO (21:00)
[2018-05-16] MEDS ORDERED: GLUCAGON 1 MG INJ IM (21:00)
[2018-05-16] MEDS ORDERED: GLUCOSE GEL 15 GRAM TUBE BUCCAL (21:00)
[2018-05-16] MEDS: INSULIN ASPART [NOVOLOG] 3 ML PEN SC (22:37)
[2018-05-16] MEDS: INSULIN DETEMIR [LEVEMIR] (100 UNITS/ML) SYG SC (22:37)
[2018-05-16] MEDS: HYDROmorphONE 0.5 MG/0.5 ML SYG IV (23:09)
[2018-05-17] MEDS: ACCU-CHEK XX (01:12)
[2018-05-17] MEDS: HYDROmorphONE 0.5 MG/0.5 ML SYG IV ×4 (06:43→21:18)
[2018-05-17 07:05] LABS: ADD MAN DIFF? NO
[2018-05-17 07:11] LABS: BASOPHIL # 0.1 10^3/ul (0.0-0.1); EOSINOPHILS # 0.4 10^3/ul (0.0-0.5); EOSINOPHILS % 5.9 % (0.0-7.0); HEMATOCRIT 36.3 % (42.0-52.0); HEMOGLOBIN 11.4 g/dl (14.0-18.0); LYMPHOCYTES # 1.6 10^3/ul (0.8-2.9); LYMPHOCYTES % 25.6 % (15.0-51.0); MEAN CORPUSCULAR HEMOGLOBIN 25.4 pg (29.0-33.0); MEAN CORPUSCULAR HGB CONC 31.4 g/dl (32.0-37.0); MEAN CORPUSCULAR VOLUME 80.8 fl (82.0-101.0); MEAN PLATELET VOLUME 10.6 fl (7.4-10.4); MONOCYTE # 0.6 10^3/ul (0.3-0.9); MONOCYTES % 9.4 % (0.0-11.0); NEUTROPHIL # 3.6 10^3/ul (1.6-7.5); NEUTROPHILS % 57.6 % (39.0-77.0); PLATELET COUNT 183 10^3/UL (140-415); RED BLOOD COUNT 4.49 10^6/ul (4.70-6.10); RED CELL DISTRIBUTION WIDTH 14.4 % (11.5-14.5)
[2018-05-17 07:11] LABS: WHITE BLOOD COUNT 6.3 10^3/ul (4.8-10.8)
[2018-05-17 07:37] LABS: CHOLESTEROL 145 mg/dl (100-200)
[2018-05-17 07:37] LABS: CHOL/HDL RATIO 4.8 RATIO; HDL CHOLESTEROL 30 mg/dl (30-78); LDL CHOLESTEROL,CALCULATED 76 mg/dl; TRIGLYCERIDES 195 mg/dl (0-149)
[2018-05-17 07:46] LABS: ANION GAP 15 (8-16); BLOOD UREA NITROGEN 72 mg/dl (7-20); CALCIUM 8.8 mg/dl (8.4-10.2); CARBON DIOXIDE 25 mmol/L (21-31); CHLORIDE 105 mmol/L (97-110); CREATININE 1.82 mg/dl (0.61-1.24); GLUCOSE 206 mg/dl (70-220); POTASSIUM 5.1 mmol/L (3.5-5.1); SODIUM 140 mmol/L (135-144)
[2018-05-17 07:53] LABS: HEMOGLOBIN A1C 6.4 % (0-5.9)
[2018-05-17 08:12] LABS: TROPONIN-I 0.013 ng/ml (0.000-0.120)
[2018-05-17] MEDS: APIXABAN 5 MG TABLET PO ×2 (08:47→20:30)
[2018-05-17] MEDS: FAMOTIDINE 20 MG TAB PO ×2 (08:47→20:29)
[2018-05-17] MEDS: PANTOPRAZOLE (EC) 40 MG TAB PO (08:48)
[2018-05-17] MEDS: ISOSORBIDE DINITRATE 10 MG TAB PO ×3 (08:48→20:30)
[2018-05-17] MEDS: BUMETANIDE 0.5 MG TAB PO (08:48)
[2018-05-17] MEDS: MULTIVITAMINS THERAPEUTIC TAB PO (08:48)
[2018-05-17] MEDS: FERROUS SULFATE (EC) 325 MG TAB PO (08:48)
[2018-05-17] MEDS: METOPROLOL 25 MG TAB PO ×2 (08:48→20:30)
[2018-05-17] MEDS: DULOXETINE 30 MG CAP DR PO (08:48)
[2018-05-17] MEDS: SENNA TAB PO ×2 (08:48→20:30)
[2018-05-17] MEDS: ASCORBIC ACID 500 MG TAB PO (08:48)
[2018-05-17] MEDS: INSULIN ASPART [NOVOLOG] 3 ML PEN SC ×7 (08:50→20:38)
[2018-05-17] MEDS: ALPRAZOLAM 0.25 MG TAB PO (10:10)
[2018-05-17] MEDS: INSULIN DETEMIR [LEVEMIR] (100 UNITS/ML) SYG SC (20:38)
[2018-05-17] MEDS: FLUTICASONE/VILANTEROL 100-25 INH (22:32)
[2018-05-18] MEDS: ACCU-CHEK XX (01:06)
[2018-05-18] MEDS: HYDROmorphONE 0.5 MG/0.5 ML SYG IV ×7 (01:07→21:14)
[2018-05-18] MEDS: DIPHENHYDRAMINE 25 MG CAP PO (02:12)
[2018-05-18 07:24] LABS: ADD MAN DIFF? NO
[2018-05-18 07:32] LABS: BASOPHILS % 0.5 % (0.0-2.0); EOSINOPHILS # 0.3 10^3/ul (0.0-0.5); EOSINOPHILS % 4.8 % (0.0-7.0); HEMOGLOBIN 11.6 g/dl (14.0-18.0); LYMPHOCYTES # 1.7 10^3/ul (0.8-2.9); LYMPHOCYTES % 28.8 % (15.0-51.0); MEAN CORPUSCULAR HEMOGLOBIN 25.7 pg (29.0-33.0); MEAN CORPUSCULAR HGB CONC 31.4 g/dl (32.0-37.0); MEAN PLATELET VOLUME 10.6 fl (7.4-10.4); MONOCYTE # 0.5 10^3/ul (0.3-0.9); MONOCYTES % 8.2 % (0.0-11.0); NEUTROPHIL # 3.4 10^3/ul (1.6-7.5); NEUTROPHILS % 57.2 % (39.0-77.0); PLATELET COUNT 189 10^3/UL (140-415); RED BLOOD COUNT 4.51 10^6/ul (4.70-6.10); RED CELL DISTRIBUTION WIDTH 13.9 % (11.5-14.5)
[2018-05-18 07:32] LABS: WHITE BLOOD COUNT 5.9 10^3/ul (4.8-10.8)
[2018-05-18 07:52] LABS: ANION GAP 15 (8-16); BLOOD UREA NITROGEN 71 mg/dl (7-20); CALCIUM 8.9 mg/dl (8.4-10.2); CARBON DIOXIDE 28 mmol/L (21-31); CHLORIDE 103 mmol/L (97-110); CREATININE 1.57 mg/dl (0.61-1.24); GLUCOSE 207 mg/dl (70-220); POTASSIUM 4.9 mmol/L (3.5-5.1); SODIUM 141 mmol/L (135-144)
[2018-05-18] MEDS: ASCORBIC ACID 500 MG TAB PO (08:16)
[2018-05-18] MEDS: FAMOTIDINE 20 MG TAB PO ×2 (08:16→21:19)
[2018-05-18] MEDS: PANTOPRAZOLE (EC) 40 MG TAB PO (08:16)
[2018-05-18] MEDS: DULOXETINE 30 MG CAP DR PO (08:16)
[2018-05-18] MEDS: APIXABAN 5 MG TABLET PO ×2 (08:16→21:19)
[2018-05-18] MEDS: FERROUS SULFATE (EC) 325 MG TAB PO (08:16)
[2018-05-18] MEDS: MULTIVITAMINS THERAPEUTIC TAB PO (08:16)
[2018-05-18] MEDS: BUMETANIDE 0.5 MG TAB PO (08:17)
[2018-05-18] MEDS: METOPROLOL 25 MG TAB PO ×2 (08:18→21:00)
[2018-05-18] MEDS: ISOSORBIDE DINITRATE 10 MG TAB PO ×3 (08:18→21:19)
[2018-05-18] MEDS: FLUTICASONE/VILANTEROL 100-25 INH (08:18)
[2018-05-18] MEDS: INSULIN ASPART [NOVOLOG] 3 ML PEN SC ×7 (08:24→21:28)
[2018-05-18] MEDS: SENNA TAB PO ×2 (09:00→21:18)
[2018-05-18] MEDS: INSULIN DETEMIR [LEVEMIR] (100 UNITS/ML) SYG SC (21:28)
[2018-05-19] MEDS: HYDROmorphONE 0.5 MG/0.5 ML SYG IV ×5 (01:16→23:05)
[2018-05-19] MEDS: ACCU-CHEK XX (02:22)
[2018-05-19 06:22] LABS: ADD MAN DIFF? NO
[2018-05-19 06:40] LABS: WHITE BLOOD COUNT 4.8 10^3/ul (4.8-10.8)
[2018-05-19 06:40] LABS: BASOPHILS % 0.6 % (0.0-2.0); EOSINOPHILS # 0.3 10^3/ul (0.0-0.5); EOSINOPHILS % 5.4 % (0.0-7.0); HEMOGLOBIN 11.1 g/dl (14.0-18.0); LYMPHOCYTES # 1.2 10^3/ul (0.8-2.9); LYMPHOCYTES % 24.6 % (15.0-51.0); MEAN CORPUSCULAR HEMOGLOBIN 25.7 pg (29.0-33.0); MEAN CORPUSCULAR HGB CONC 31.7 g/dl (32.0-37.0); MEAN PLATELET VOLUME 10.3 fl (7.4-10.4); MONOCYTE # 0.4 10^3/ul (0.3-0.9); MONOCYTES % 9.2 % (0.0-11.0); NEUTROPHIL # 2.9 10^3/ul (1.6-7.5); NEUTROPHILS % 59.6 % (39.0-77.0); PLATELET COUNT 170 10^3/UL (140-415); RED BLOOD COUNT 4.32 10^6/ul (4.70-6.10); RED CELL DISTRIBUTION WIDTH 13.6 % (11.5-14.5)
[2018-05-19 07:03] LABS: ANION GAP 10 (8-16); BLOOD UREA NITROGEN 58 mg/dl (7-20); CARBON DIOXIDE 29 mmol/L (21-31); CHLORIDE 106 mmol/L (97-110); CREATININE 1.18 mg/dl (0.61-1.24); GLUCOSE 159 mg/dl (70-220); POTASSIUM 4.7 mmol/L (3.5-5.1); SODIUM 140 mmol/L (135-144)
[2018-05-19] MEDS: ASCORBIC ACID 500 MG TAB PO (08:16)
[2018-05-19] MEDS: BUMETANIDE 0.5 MG TAB PO (08:16)
[2018-05-19] MEDS: FERROUS SULFATE (EC) 325 MG TAB PO (08:16)
[2018-05-19] MEDS: FAMOTIDINE 20 MG TAB PO ×2 (08:16→20:46)
[2018-05-19] MEDS: DULOXETINE 30 MG CAP DR PO (08:16)
[2018-05-19] MEDS: MULTIVITAMINS THERAPEUTIC TAB PO (08:16)
[2018-05-19] MEDS: ISOSORBIDE DINITRATE 10 MG TAB PO ×3 (08:16→20:47)
[2018-05-19] MEDS: METOPROLOL 25 MG TAB PO ×2 (08:16→20:46)
[2018-05-19] MEDS: SENNA TAB PO ×2 (08:16→20:46)
[2018-05-19] MEDS: PANTOPRAZOLE (EC) 40 MG TAB PO (08:17)
[2018-05-19] MEDS: APIXABAN 5 MG TABLET PO ×2 (08:17→20:46)
[2018-05-19] MEDS: FLUTICASONE/VILANTEROL 100-25 INH (08:17)
[2018-05-19] MEDS: INSULIN ASPART [NOVOLOG] 3 ML PEN SC ×7 (08:50→20:54)
[2018-05-19] MEDS: LISINOPRIL 5 MG TAB PO ×2 (12:33→20:47)
[2018-05-19] MEDS: INSULIN DETEMIR [LEVEMIR] (100 UNITS/ML) SYG SC (20:54)
[2018-05-20] MEDS: ACCU-CHEK XX (02:00)
[2018-05-20] MEDS: HYDROmorphONE 0.5 MG/0.5 ML SYG IV ×5 (03:07→19:54)
[2018-05-20] MEDS: PANTOPRAZOLE (EC) 40 MG TAB PO (05:13)
[2018-05-20] MEDS: ALPRAZOLAM 0.25 MG TAB PO (06:16)
[2018-05-20] MEDS: INSULIN ASPART [NOVOLOG] 3 ML PEN SC ×7 (07:55→21:30)
[2018-05-20 08:25] LABS: ADD MAN DIFF? NO
[2018-05-20 08:40] LABS: BASOPHIL # 0.1 10^3/ul (0.0-0.1); BASOPHILS % 0.8 % (0.0-2.0); EOSINOPHILS # 0.2 10^3/ul (0.0-0.5); EOSINOPHILS % 3.6 % (0.0-7.0); HEMATOCRIT 36.4 % (42.0-52.0); HEMOGLOBIN 11.5 g/dl (14.0-18.0); LYMPHOCYTES # 1.5 10^3/ul (0.8-2.9); LYMPHOCYTES % 23.6 % (15.0-51.0); MEAN CORPUSCULAR HEMOGLOBIN 25.7 pg (29.0-33.0); MEAN CORPUSCULAR HGB CONC 31.6 g/dl (32.0-37.0); MEAN CORPUSCULAR VOLUME 81.4 fl (82.0-101.0); MEAN PLATELET VOLUME 10.9 fl (7.4-10.4); MONOCYTE # 0.5 10^3/ul (0.3-0.9); MONOCYTES % 7.6 % (0.0-11.0); NEUTROPHILS % 63.9 % (39.0-77.0); PLATELET COUNT 197 10^3/UL (140-415); RED BLOOD COUNT 4.47 10^6/ul (4.70-6.10)
[2018-05-20 08:40] LABS: WHITE BLOOD COUNT 6.2 10^3/ul (4.8-10.8)
[2018-05-20 09:01] LABS: ANION GAP 12 (8-16); BLOOD UREA NITROGEN 61 mg/dl (7-20); CARBON DIOXIDE 27 mmol/L (21-31); CHLORIDE 106 mmol/L (97-110); CREATININE 1.23 mg/dl (0.61-1.24); GLUCOSE 267 mg/dl (70-220); POTASSIUM 4.4 mmol/L (3.5-5.1); SODIUM 141 mmol/L (135-144)
[2018-05-20] MEDS: COLLAGENASE 5 GM (UD JAR) TOP (11:45)
[2018-05-20] MEDS: SENNA TAB PO ×2 (11:45→21:24)
[2018-05-20] MEDS: FERROUS SULFATE (EC) 325 MG TAB PO (11:45)
[2018-05-20] MEDS: FLUTICASONE/VILANTEROL 100-25 INH (11:46)
[2018-05-20] MEDS: APIXABAN 5 MG TABLET PO ×2 (11:47→21:24)
[2018-05-20] MEDS: DULOXETINE 30 MG CAP DR PO (11:47)
[2018-05-20] MEDS: LISINOPRIL 5 MG TAB PO ×2 (11:47→21:43)
[2018-05-20] MEDS: ISOSORBIDE DINITRATE 10 MG TAB PO ×3 (11:48→21:44)
[2018-05-20] MEDS: FAMOTIDINE 20 MG TAB PO ×2 (11:48→21:24)
[2018-05-20] MEDS: ASCORBIC ACID 500 MG TAB PO (11:48)
[2018-05-20] MEDS: MULTIVITAMINS THERAPEUTIC TAB PO (11:48)
[2018-05-20] MEDS: METOPROLOL 25 MG TAB PO ×2 (11:48→21:00)
[2018-05-20] MEDS: BUMETANIDE 0.5 MG TAB PO (11:50)
[2018-05-20] MEDS: INSULIN DETEMIR [LEVEMIR] (100 UNITS/ML) SYG SC (21:42)
[2018-05-21] MEDS: HYDROmorphONE 0.5 MG/0.5 ML SYG IV ×6 (01:18→22:59)
[2018-05-21] MEDS: INSULIN ASPART [NOVOLOG] 3 ML PEN SC ×7 (01:36→20:57)
[2018-05-21] MEDS: ACCU-CHEK XX (02:00)
[2018-05-21] MEDS: PANTOPRAZOLE (EC) 40 MG TAB PO (06:49)
[2018-05-21 08:33] LABS: ADD MAN DIFF? NO
[2018-05-21 08:39] LABS: BASOPHIL # 0.1 10^3/ul (0.0-0.1); BASOPHILS % 1.1 % (0.0-2.0); EOSINOPHILS # 0.3 10^3/ul (0.0-0.5); EOSINOPHILS % 3.8 % (0.0-7.0); HEMATOCRIT 35.6 % (42.0-52.0); HEMOGLOBIN 11.4 g/dl (14.0-18.0); LYMPHOCYTES # 1.5 10^3/ul (0.8-2.9); LYMPHOCYTES % 22.8 % (15.0-51.0); MEAN CORPUSCULAR HEMOGLOBIN 25.9 pg (29.0-33.0); MEAN CORPUSCULAR VOLUME 80.7 fl (82.0-101.0); MEAN PLATELET VOLUME 10.5 fl (7.4-10.4); MONOCYTE # 0.5 10^3/ul (0.3-0.9); NEUTROPHIL # 4.2 10^3/ul (1.6-7.5); NEUTROPHILS % 63.8 % (39.0-77.0); PLATELET COUNT 185 10^3/UL (140-415); RED BLOOD COUNT 4.41 10^6/ul (4.70-6.10); RED CELL DISTRIBUTION WIDTH 13.9 % (11.5-14.5)
[2018-05-21 08:39] LABS: WHITE BLOOD COUNT 6.5 10^3/ul (4.8-10.8)
[2018-05-21] MEDS: SENNA TAB PO ×2 (09:00→20:57)
[2018-05-21 09:15] LABS: ANION GAP 13 (8-16); BLOOD UREA NITROGEN 59 mg/dl (7-20); CALCIUM 9.2 mg/dl (8.4-10.2); CARBON DIOXIDE 27 mmol/L (21-31); CHLORIDE 106 mmol/L (97-110); CREATININE 1.18 mg/dl (0.61-1.24); GLUCOSE 221 mg/dl (70-220); POTASSIUM 4.5 mmol/L (3.5-5.1); SODIUM 141 mmol/L (135-144)
[2018-05-21] MEDS: FLUTICASONE/VILANTEROL 100-25 INH (09:38)
[2018-05-21] MEDS: FERROUS SULFATE (EC) 325 MG TAB PO (09:40)
[2018-05-21] MEDS: ISOSORBIDE DINITRATE 10 MG TAB PO ×3 (09:40→20:52)
[2018-05-21] MEDS: MULTIVITAMINS THERAPEUTIC TAB PO (09:41)
[2018-05-21] MEDS: METOPROLOL 25 MG TAB PO ×2 (09:41→20:52)
[2018-05-21] MEDS: FAMOTIDINE 20 MG TAB PO ×2 (09:41→20:52)
[2018-05-21] MEDS: BUMETANIDE 0.5 MG TAB PO (09:42)
[2018-05-21] MEDS: APIXABAN 5 MG TABLET PO ×2 (09:42→20:52)
[2018-05-21] MEDS: DULOXETINE 30 MG CAP DR PO (09:42)
[2018-05-21] MEDS: ASCORBIC ACID 500 MG TAB PO (09:42)
[2018-05-21] MEDS: LISINOPRIL 5 MG TAB PO ×2 (09:42→20:53)
[2018-05-21] MEDS: COLLAGENASE 5 GM (UD JAR) TOP (09:43)
[2018-05-21] MEDS: INSULIN DETEMIR [LEVEMIR] (100 UNITS/ML) SYG SC (20:56)
[2018-05-22] MEDS: ACCU-CHEK XX (01:23)
[2018-05-22] MEDS: HYDROmorphONE 0.5 MG/0.5 ML SYG IV ×5 (02:52→21:37)
[2018-05-22] MEDS: ALPRAZOLAM 0.25 MG TAB PO (03:54)
[2018-05-22] MEDS: PANTOPRAZOLE (EC) 40 MG TAB PO (06:53)
[2018-05-22] MEDS: INSULIN ASPART [NOVOLOG] 3 ML PEN SC ×8 (08:10→21:55)
[2018-05-22] MEDS: LISINOPRIL 5 MG TAB PO ×2 (08:44→21:35)
[2018-05-22] MEDS: ASCORBIC ACID 500 MG TAB PO (08:44)
[2018-05-22] MEDS: SENNA TAB PO ×2 (08:44→21:36)
[2018-05-22] MEDS: APIXABAN 5 MG TABLET PO ×2 (08:44→21:35)
[2018-05-22] MEDS: BUMETANIDE 0.5 MG TAB PO (08:44)
[2018-05-22] MEDS: FLUTICASONE/VILANTEROL 100-25 INH (08:44)
[2018-05-22] MEDS: FAMOTIDINE 20 MG TAB PO ×2 (08:44→21:35)
[2018-05-22] MEDS: MULTIVITAMINS THERAPEUTIC TAB PO (08:45)
[2018-05-22] MEDS: DULOXETINE 30 MG CAP DR PO (08:45)
[2018-05-22] MEDS: FERROUS SULFATE (EC) 325 MG TAB PO (08:45)
[2018-05-22] MEDS: METOPROLOL 25 MG TAB PO ×2 (08:46→21:36)
[2018-05-22] MEDS: ISOSORBIDE DINITRATE 10 MG TAB PO ×3 (08:46→21:36)
[2018-05-22 09:11] LABS: ADD MAN DIFF? NO
[2018-05-22 09:14] LABS: BASOPHILS % 0.7 % (0.0-2.0); EOSINOPHILS # 0.2 10^3/ul (0.0-0.5); HEMOGLOBIN 10.7 g/dl (14.0-18.0); LYMPHOCYTES # 1.4 10^3/ul (0.8-2.9); LYMPHOCYTES % 23.5 % (15.0-51.0); MEAN CORPUSCULAR HEMOGLOBIN 25.7 pg (29.0-33.0); MEAN CORPUSCULAR HGB CONC 31.5 g/dl (32.0-37.0); MEAN CORPUSCULAR VOLUME 81.5 fl (82.0-101.0); MEAN PLATELET VOLUME 10.8 fl (7.4-10.4); MONOCYTE # 0.5 10^3/ul (0.3-0.9); NEUTROPHIL # 3.7 10^3/ul (1.6-7.5); NEUTROPHILS % 62.3 % (39.0-77.0); PLATELET COUNT 182 10^3/UL (140-415); RED BLOOD COUNT 4.17 10^6/ul (4.70-6.10); RED CELL DISTRIBUTION WIDTH 14.1 % (11.5-14.5)
[2018-05-22 09:53] LABS: ANION GAP 12 (8-16); BLOOD UREA NITROGEN 76 mg/dl (7-20); CALCIUM 9.1 mg/dl (8.4-10.2); CARBON DIOXIDE 26 mmol/L (21-31); CHLORIDE 104 mmol/L (97-110); CREATININE 1.14 mg/dl (0.61-1.24); GLUCOSE 255 mg/dl (70-220); POTASSIUM 4.4 mmol/L (3.5-5.1); SODIUM 138 mmol/L (135-144)
[2018-05-22] MEDS: OXYCODONE/ACETAMINOPHEN (5/325) TAB PO (14:35)
[2018-05-22] MEDS: COLLAGENASE 5 GM (UD JAR) TOP ×2 (16:09)
[2018-05-22] MEDS: INSULIN DETEMIR [LEVEMIR] (100 UNITS/ML) SYG SC (21:56)
[2018-05-23] MEDS: ACCU-CHEK XX (02:43)
[2018-05-23] MEDS: HYDROmorphONE 0.5 MG/0.5 ML SYG IV ×4 (05:26→20:12)
[2018-05-23] MEDS: INSULIN ASPART [NOVOLOG] 3 ML PEN SC ×7 (08:44→21:57)
[2018-05-23 10:52] LABS: ANION GAP 12 (8-16); BLOOD UREA NITROGEN 68 mg/dl (7-20); CALCIUM 9.5 mg/dl (8.4-10.2); CARBON DIOXIDE 28 mmol/L (21-31); CHLORIDE 106 mmol/L (97-110); CREATININE 1.11 mg/dl (0.61-1.24); GLUCOSE 170 mg/dl (70-220); POTASSIUM 4.5 mmol/L (3.5-5.1); SODIUM 141 mmol/L (135-144)
[2018-05-23] MEDS: FERROUS SULFATE (EC) 325 MG TAB PO (12:00)
[2018-05-23] MEDS: SENNA TAB PO ×2 (12:00→21:46)
[2018-05-23] MEDS: BUMETANIDE 0.5 MG TAB PO (12:08)
[2018-05-23] MEDS: MULTIVITAMINS THERAPEUTIC TAB PO (12:09)
[2018-05-23] MEDS: DULOXETINE 30 MG CAP DR PO (12:10)
[2018-05-23] MEDS: PANTOPRAZOLE (EC) 40 MG TAB PO (12:10)
[2018-05-23] MEDS: LISINOPRIL 5 MG TAB PO ×2 (12:10→21:44)
[2018-05-23] MEDS: ISOSORBIDE DINITRATE 10 MG TAB PO ×3 (12:10→21:45)
[2018-05-23] MEDS: METOPROLOL 25 MG TAB PO ×2 (12:11→21:45)
[2018-05-23] MEDS: ASCORBIC ACID 500 MG TAB PO (12:11)
[2018-05-23] MEDS: COLLAGENASE 5 GM (UD JAR) TOP (12:12)
[2018-05-23] MEDS: FAMOTIDINE 20 MG TAB PO ×2 (12:12→21:46)
[2018-05-23] MEDS: APIXABAN 5 MG TABLET PO ×2 (12:12→21:45)
[2018-05-23] MEDS: FLUTICASONE/VILANTEROL 100-25 INH (12:15)
[2018-05-23] MEDS: INSULIN DETEMIR [LEVEMIR] (100 UNITS/ML) SYG SC (21:57)
[2018-05-24] MEDS: HYDROmorphONE 0.5 MG/0.5 ML SYG IV ×6 (00:27→23:33)
[2018-05-24] MEDS: ACCU-CHEK XX (02:46)
[2018-05-24] MEDS: ALPRAZOLAM 0.25 MG TAB PO ×2 (02:52→23:02)
[2018-05-24] MEDS: PANTOPRAZOLE (EC) 40 MG TAB PO (06:05)
[2018-05-24] MEDS: INSULIN ASPART [NOVOLOG] 3 ML PEN SC ×7 (08:00→20:48)
[2018-05-24 08:15] LABS: ANION GAP 11 (8-16); BLOOD UREA NITROGEN 64 mg/dl (7-20); CALCIUM 9.1 mg/dl (8.4-10.2); CARBON DIOXIDE 26 mmol/L (21-31); CHLORIDE 109 mmol/L (97-110); CREATININE 1.15 mg/dl (0.61-1.24); GLUCOSE 126 mg/dl (70-220); POTASSIUM 4.1 mmol/L (3.5-5.1); SODIUM 142 mmol/L (135-144)
[2018-05-24 08:21] LABS: MAGNESIUM 1.9 mg/dl (1.7-2.5)
[2018-05-24] MEDS: ASCORBIC ACID 500 MG TAB PO (08:22)
[2018-05-24] MEDS: FLUTICASONE/VILANTEROL 100-25 INH (08:22)
[2018-05-24] MEDS: DULOXETINE 30 MG CAP DR PO (08:22)
[2018-05-24] MEDS: APIXABAN 5 MG TABLET PO ×2 (08:22→20:36)
[2018-05-24] MEDS: FAMOTIDINE 20 MG TAB PO ×2 (08:22→20:37)
[2018-05-24] MEDS: MULTIVITAMINS THERAPEUTIC TAB PO (08:22)
[2018-05-24] MEDS: BUMETANIDE 0.5 MG TAB PO (08:22)
[2018-05-24] MEDS: SENNA TAB PO ×3 (08:22→20:40)
[2018-05-24] MEDS: COLLAGENASE 5 GM (UD JAR) TOP (08:23)
[2018-05-24] MEDS: METOPROLOL 25 MG TAB PO ×2 (08:23→20:38)
[2018-05-24] MEDS: LISINOPRIL 5 MG TAB PO ×2 (08:23→20:37)
[2018-05-24] MEDS: ISOSORBIDE DINITRATE 10 MG TAB PO ×3 (08:23→20:37)
[2018-05-24] MEDS: FERROUS SULFATE (EC) 325 MG TAB PO (08:32)
[2018-05-24] MEDS: INSULIN DETEMIR [LEVEMIR] (100 UNITS/ML) SYG SC (19:47)
[2018-05-25] MEDS: ACCU-CHEK XX (02:00)
[2018-05-25] MEDS: HYDROmorphONE 0.5 MG/0.5 ML SYG IV ×5 (03:30→21:39)
[2018-05-25] MEDS: PANTOPRAZOLE (EC) 40 MG TAB PO (06:19)
[2018-05-25] MEDS: INSULIN ASPART [NOVOLOG] 3 ML PEN SC ×7 (08:35→21:38)
[2018-05-25] MEDS: SENNA TAB PO ×2 (08:38→21:00)
[2018-05-25] MEDS: MULTIVITAMINS THERAPEUTIC TAB PO (08:39)
[2018-05-25] MEDS: BUMETANIDE 0.5 MG TAB PO (08:39)
[2018-05-25] MEDS: FAMOTIDINE 20 MG TAB PO ×2 (08:39→20:21)
[2018-05-25] MEDS: APIXABAN 5 MG TABLET PO ×2 (08:39→20:21)
[2018-05-25] MEDS: ASCORBIC ACID 500 MG TAB PO (08:39)
[2018-05-25] MEDS: DULOXETINE 30 MG CAP DR PO (08:39)
[2018-05-25] MEDS: FERROUS SULFATE (EC) 325 MG TAB PO (08:39)
[2018-05-25] MEDS: METOPROLOL 25 MG TAB PO ×2 (08:43→20:20)
[2018-05-25] MEDS: LISINOPRIL 5 MG TAB PO ×2 (08:43→20:21)
[2018-05-25] MEDS: ISOSORBIDE DINITRATE 10 MG TAB PO ×3 (08:44→20:20)
[2018-05-25] MEDS: FLUTICASONE/VILANTEROL 100-25 INH (08:44)
[2018-05-25] MEDS: COLLAGENASE 5 GM (UD JAR) TOP (12:50)
[2018-05-25] MEDS: INSULIN DETEMIR [LEVEMIR] (100 UNITS/ML) SYG SC (20:19)
[2018-05-26] MEDS: ACCU-CHEK XX (01:42)
[2018-05-26] MEDS: HYDROmorphONE 0.5 MG/0.5 ML SYG IV ×6 (01:42→21:37)
[2018-05-26] MEDS: PANTOPRAZOLE (EC) 40 MG TAB PO ×2 (06:12→06:15)
[2018-05-26] MEDS: INSULIN ASPART [NOVOLOG] 3 ML PEN SC ×7 (08:00→20:19)
[2018-05-26] MEDS: APIXABAN 5 MG TABLET PO ×2 (08:18→20:15)
[2018-05-26] MEDS: SENNA TAB PO ×2 (08:18→20:16)
[2018-05-26] MEDS: FLUTICASONE/VILANTEROL 100-25 INH (08:18)
[2018-05-26] MEDS: COLLAGENASE 5 GM (UD JAR) TOP (08:18)
[2018-05-26] MEDS: ASCORBIC ACID 500 MG TAB PO (08:18)
[2018-05-26] MEDS: DULOXETINE 30 MG CAP DR PO (08:18)
[2018-05-26] MEDS: MULTIVITAMINS THERAPEUTIC TAB PO (08:18)
[2018-05-26] MEDS: FERROUS SULFATE (EC) 325 MG TAB PO (08:18)
[2018-05-26] MEDS: ISOSORBIDE DINITRATE 10 MG TAB PO ×3 (08:19→20:16)
[2018-05-26] MEDS: BUMETANIDE 0.5 MG TAB PO (08:19)
[2018-05-26] MEDS: FAMOTIDINE 20 MG TAB PO ×2 (08:19→20:16)
[2018-05-26] MEDS: METOPROLOL 25 MG TAB PO ×2 (08:19→20:16)
[2018-05-26] MEDS: LISINOPRIL 5 MG TAB PO ×2 (08:20→20:16)
[2018-05-26 09:04] LABS: ADD MAN DIFF? NO
[2018-05-26 09:09] LABS: BASOPHILS % 0.6 % (0.0-2.0); EOSINOPHILS # 0.3 10^3/ul (0.0-0.5); EOSINOPHILS % 3.9 % (0.0-7.0); HEMATOCRIT 36.9 % (42.0-52.0); HEMOGLOBIN 11.6 g/dl (14.0-18.0); LYMPHOCYTES # 1.5 10^3/ul (0.8-2.9); LYMPHOCYTES % 21.9 % (15.0-51.0); MEAN CORPUSCULAR HEMOGLOBIN 25.7 pg (29.0-33.0); MEAN CORPUSCULAR HGB CONC 31.4 g/dl (32.0-37.0); MEAN CORPUSCULAR VOLUME 81.6 fl (82.0-101.0); MEAN PLATELET VOLUME 10.6 fl (7.4-10.4); MONOCYTE # 0.7 10^3/ul (0.3-0.9); MONOCYTES % 10.1 % (0.0-11.0); NEUTROPHIL # 4.4 10^3/ul (1.6-7.5); NEUTROPHILS % 62.8 % (39.0-77.0); PLATELET COUNT 170 10^3/UL (140-415); RED BLOOD COUNT 4.52 10^6/ul (4.70-6.10); RED CELL DISTRIBUTION WIDTH 14.4 % (11.5-14.5)
[2018-05-26 09:38] LABS: ANION GAP 9 (8-16); BLOOD UREA NITROGEN 72 mg/dl (7-20); CALCIUM 9.5 mg/dl (8.4-10.2); CARBON DIOXIDE 27 mmol/L (21-31); CHLORIDE 107 mmol/L (97-110); CREATININE 1.15 mg/dl (0.61-1.24); GLUCOSE 124 mg/dl (70-220); POTASSIUM 4.4 mmol/L (3.5-5.1); SODIUM 139 mmol/L (135-144)
[2018-05-26] MEDS: ACETAMINOPHEN 325 MG TAB PO (16:20)
[2018-05-26] MEDS: INSULIN DETEMIR [LEVEMIR] (100 UNITS/ML) SYG SC (20:20)
[2018-05-27] MEDS: HYDROmorphONE 0.5 MG/0.5 ML SYG IV ×5 (02:41→21:08)
[2018-05-27] MEDS: ACCU-CHEK XX (02:41)
[2018-05-27] MEDS: PANTOPRAZOLE (EC) 40 MG TAB PO (06:40)
[2018-05-27] MEDS: SENNA TAB PO ×2 (08:05→20:13)
[2018-05-27] MEDS: BUMETANIDE 0.5 MG TAB PO (08:05)
[2018-05-27] MEDS: DULOXETINE 30 MG CAP DR PO (08:05)
[2018-05-27] MEDS: MULTIVITAMINS THERAPEUTIC TAB PO (08:06)
[2018-05-27] MEDS: APIXABAN 5 MG TABLET PO ×2 (08:06→20:15)
[2018-05-27] MEDS: FAMOTIDINE 20 MG TAB PO ×2 (08:06→20:15)
[2018-05-27] MEDS: FERROUS SULFATE (EC) 325 MG TAB PO (08:06)
[2018-05-27] MEDS: ASCORBIC ACID 500 MG TAB PO (08:06)
[2018-05-27] MEDS: COLLAGENASE 5 GM (UD JAR) TOP (08:11)
[2018-05-27] MEDS: FLUTICASONE/VILANTEROL 100-25 INH (08:11)
[2018-05-27] MEDS: ISOSORBIDE DINITRATE 10 MG TAB PO ×3 (08:12→20:14)
[2018-05-27] MEDS: METOPROLOL 25 MG TAB PO ×2 (08:12→20:16)
[2018-05-27] MEDS: LISINOPRIL 5 MG TAB PO ×2 (08:12→20:14)
[2018-05-27] MEDS: INSULIN ASPART [NOVOLOG] 3 ML PEN SC ×7 (08:15→20:27)
[2018-05-27] MEDS: INSULIN DETEMIR [LEVEMIR] (100 UNITS/ML) SYG SC (20:26)
[2018-05-28] MEDS: HYDROmorphONE 0.5 MG/0.5 ML SYG IV ×6 (01:02→21:48)
[2018-05-28] MEDS: ACCU-CHEK XX (02:00)
[2018-05-28 05:47] LABS: ANION GAP 12 (8-16); BLOOD UREA NITROGEN 69 mg/dl (7-20); CALCIUM 9.1 mg/dl (8.4-10.2); CARBON DIOXIDE 25 mmol/L (21-31); CHLORIDE 106 mmol/L (97-110); GLUCOSE 261 mg/dl (70-220); POTASSIUM 4.8 mmol/L (3.5-5.1); SODIUM 138 mmol/L (135-144)
[2018-05-28] MEDS: PANTOPRAZOLE (EC) 40 MG TAB PO (06:21)
[2018-05-28] MEDS: ASCORBIC ACID 500 MG TAB PO (08:35)
[2018-05-28] MEDS: BUMETANIDE 0.5 MG TAB PO (08:35)
[2018-05-28] MEDS: SENNA TAB PO ×2 (08:35→20:35)
[2018-05-28] MEDS: DULOXETINE 30 MG CAP DR PO (08:35)
[2018-05-28] MEDS: LISINOPRIL 5 MG TAB PO ×2 (08:36→20:34)
[2018-05-28] MEDS: FERROUS SULFATE (EC) 325 MG TAB PO (08:36)
[2018-05-28] MEDS: MULTIVITAMINS THERAPEUTIC TAB PO (08:36)
[2018-05-28] MEDS: FAMOTIDINE 20 MG TAB PO ×2 (08:37→20:35)
[2018-05-28] MEDS: METOPROLOL 25 MG TAB PO ×2 (08:37→20:35)
[2018-05-28] MEDS: ISOSORBIDE DINITRATE 10 MG TAB PO ×3 (08:37→20:33)
[2018-05-28] MEDS: APIXABAN 5 MG TABLET PO ×2 (08:37→20:34)
[2018-05-28] MEDS: COLLAGENASE 5 GM (UD JAR) TOP (08:38)
[2018-05-28] MEDS: FLUTICASONE/VILANTEROL 100-25 INH (08:45)
[2018-05-28] MEDS: INSULIN ASPART [NOVOLOG] 3 ML PEN SC ×7 (08:46→21:00)
[2018-05-28] MEDS: SOD CHLORIDE 0.9% 1,000 ML IV (14:34)
[2018-05-28] MEDS: INSULIN DETEMIR [LEVEMIR] (100 UNITS/ML) SYG SC (20:44)
[2018-05-29] MEDS: ACCU-CHEK XX (01:29)
[2018-05-29] MEDS: HYDROmorphONE 0.5 MG/0.5 ML SYG IV ×5 (01:51→21:06)
[2018-05-29] MEDS: SOD CHLORIDE 0.9% 1,000 ML IV ×3 (04:50→19:19)
[2018-05-29] MEDS: PANTOPRAZOLE (EC) 40 MG TAB PO (06:25)
[2018-05-29] MEDS: INSULIN ASPART [NOVOLOG] 3 ML PEN SC ×7 (08:09→21:00)
[2018-05-29] MEDS: FLUTICASONE/VILANTEROL 100-25 INH (08:49)
[2018-05-29] MEDS: ASCORBIC ACID 500 MG TAB PO (08:50)
[2018-05-29] MEDS: BUMETANIDE 0.5 MG TAB PO (08:50)
[2018-05-29] MEDS: DULOXETINE 30 MG CAP DR PO (08:50)
[2018-05-29] MEDS: MULTIVITAMINS THERAPEUTIC TAB PO (08:50)
[2018-05-29] MEDS: FERROUS SULFATE (EC) 325 MG TAB PO (08:51)
[2018-05-29] MEDS: APIXABAN 5 MG TABLET PO ×2 (08:51→21:04)
[2018-05-29] MEDS: FAMOTIDINE 20 MG TAB PO ×2 (08:51→21:04)
[2018-05-29] MEDS: LISINOPRIL 5 MG TAB PO ×2 (08:54→21:05)
[2018-05-29] MEDS: SENNA TAB PO ×2 (08:55→21:05)
[2018-05-29] MEDS: METOPROLOL 25 MG TAB PO ×2 (08:55→20:57)
[2018-05-29] MEDS: ISOSORBIDE DINITRATE 10 MG TAB PO ×3 (08:55→21:05)
[2018-05-29] MEDS: COLLAGENASE 5 GM (UD JAR) TOP (10:49)
[2018-05-29] MEDS: ALPRAZOLAM 0.25 MG TAB PO (18:51)
[2018-05-29] MEDS: INSULIN DETEMIR [LEVEMIR] (100 UNITS/ML) SYG SC (21:22)
[2018-05-30] MEDS: ACCU-CHEK XX (01:06)
[2018-05-30] MEDS: HYDROmorphONE 0.5 MG/0.5 ML SYG IV ×6 (01:46→22:31)
[2018-05-30] MEDS: PANTOPRAZOLE (EC) 40 MG TAB PO (06:27)
[2018-05-30 07:48] LABS: ADD MAN DIFF? NO
[2018-05-30 07:51] LABS: BASOPHILS % 0.4 % (0.0-2.0); EOSINOPHILS # 0.2 10^3/ul (0.0-0.5); EOSINOPHILS % 4.4 % (0.0-7.0); HEMATOCRIT 32.1 % (42.0-52.0); HEMOGLOBIN 10.1 g/dl (14.0-18.0); LYMPHOCYTES # 0.9 10^3/ul (0.8-2.9); LYMPHOCYTES % 17.7 % (15.0-51.0); MEAN CORPUSCULAR HEMOGLOBIN 25.5 pg (29.0-33.0); MEAN CORPUSCULAR HGB CONC 31.5 g/dl (32.0-37.0); MEAN CORPUSCULAR VOLUME 81.1 fl (82.0-101.0); MEAN PLATELET VOLUME 10.6 fl (7.4-10.4); MONOCYTE # 0.4 10^3/ul (0.3-0.9); MONOCYTES % 7.8 % (0.0-11.0); NEUTROPHIL # 3.5 10^3/ul (1.6-7.5); NEUTROPHILS % 69.3 % (39.0-77.0); PLATELET COUNT 121 10^3/UL (140-415); RED BLOOD COUNT 3.96 10^6/ul (4.70-6.10); RED CELL DISTRIBUTION WIDTH 14.5 % (11.5-14.5)
[2018-05-30] MEDS: INSULIN ASPART [NOVOLOG] 3 ML PEN SC ×7 (08:10→20:39)
[2018-05-30 08:21] LABS: ANION GAP 10 (8-16); BLOOD UREA NITROGEN 50 mg/dl (7-20); CALCIUM 9.1 mg/dl (8.4-10.2); CARBON DIOXIDE 29 mmol/L (21-31); CHLORIDE 110 mmol/L (97-110); GLUCOSE 166 mg/dl (70-220); POTASSIUM 4.6 mmol/L (3.5-5.1); SODIUM 144 mmol/L (135-144)
[2018-05-30] MEDS: SOD CHLORIDE 0.9% 1,000 ML IV ×2 (08:24→09:39)
[2018-05-30] MEDS: BUMETANIDE 0.5 MG TAB PO (08:29)
[2018-05-30] MEDS: DULOXETINE 30 MG CAP DR PO (08:29)
[2018-05-30] MEDS: APIXABAN 5 MG TABLET PO ×2 (08:29→20:30)
[2018-05-30] MEDS: ASCORBIC ACID 500 MG TAB PO (08:30)
[2018-05-30] MEDS: FAMOTIDINE 20 MG TAB PO ×2 (08:30→20:30)
[2018-05-30] MEDS: METOPROLOL 25 MG TAB PO ×2 (08:30→20:31)
[2018-05-30] MEDS: MULTIVITAMINS THERAPEUTIC TAB PO (08:30)
[2018-05-30] MEDS: LISINOPRIL 5 MG TAB PO ×2 (08:31→20:39)
[2018-05-30] MEDS: COLLAGENASE 5 GM (UD JAR) TOP (08:32)
[2018-05-30] MEDS: FERROUS SULFATE (EC) 325 MG TAB PO (08:37)
[2018-05-30] MEDS: FLUTICASONE/VILANTEROL 100-25 INH (08:37)
[2018-05-30] MEDS: SENNA TAB PO ×2 (09:00→20:31)
[2018-05-30] MEDS: ISOSORBIDE DINITRATE 10 MG TAB PO ×3 (09:43→20:30)
[2018-05-30] MEDS: ALPRAZOLAM 0.25 MG TAB PO (13:53)
[2018-05-30] MEDS: ACETAMINOPHEN 325 MG TAB PO (20:30)
[2018-05-30] MEDS: INSULIN DETEMIR [LEVEMIR] (100 UNITS/ML) SYG SC (20:39)
[2018-05-31] MEDS: ACCU-CHEK XX (01:14)
[2018-05-31] MEDS: HYDROmorphONE 0.5 MG/0.5 ML SYG IV ×5 (03:17→21:43)
[2018-05-31] MEDS: PANTOPRAZOLE (EC) 40 MG TAB PO (06:26)
[2018-05-31 06:41] LABS: ANION GAP 10 (8-16); BLOOD UREA NITROGEN 40 mg/dl (7-20); CALCIUM 9.1 mg/dl (8.4-10.2); CARBON DIOXIDE 31 mmol/L (21-31); CHLORIDE 107 mmol/L (97-110); CREATININE 0.88 mg/dl (0.61-1.24); GLUCOSE 79 mg/dl (70-220); SODIUM 144 mmol/L (135-144)
[2018-05-31] MEDS: INSULIN ASPART [NOVOLOG] 3 ML PEN SC ×7 (08:00→20:57)
[2018-05-31] MEDS: LISINOPRIL 5 MG TAB PO ×2 (08:16→20:45)
[2018-05-31] MEDS: ISOSORBIDE DINITRATE 10 MG TAB PO ×3 (08:16→20:44)
[2018-05-31] MEDS: BUMETANIDE 0.5 MG TAB PO (08:16)
[2018-05-31] MEDS: METOPROLOL 25 MG TAB PO ×2 (08:16→20:44)
[2018-05-31] MEDS: COLLAGENASE 5 GM (UD JAR) TOP (08:17)
[2018-05-31] MEDS: APIXABAN 5 MG TABLET PO ×2 (08:17→20:45)
[2018-05-31] MEDS: FERROUS SULFATE (EC) 325 MG TAB PO (08:17)
[2018-05-31] MEDS: MULTIVITAMINS THERAPEUTIC TAB PO (08:17)
[2018-05-31] MEDS: ASCORBIC ACID 500 MG TAB PO (08:17)
[2018-05-31] MEDS: FAMOTIDINE 20 MG TAB PO ×2 (08:17→20:45)
[2018-05-31] MEDS: SENNA TAB PO ×2 (08:17→20:43)
[2018-05-31] MEDS: DULOXETINE 30 MG CAP DR PO (08:17)
[2018-05-31] MEDS: FLUTICASONE/VILANTEROL 100-25 INH (09:34)
[2018-05-31] MEDS: INSULIN DETEMIR [LEVEMIR] (100 UNITS/ML) SYG SC (20:51)
[2018-06-01] MEDS: HYDROmorphONE 0.5 MG/0.5 ML SYG IV ×5 (01:44→21:30)
[2018-06-01] MEDS: ACCU-CHEK XX (02:00)
[2018-06-01] MEDS: INSULIN ASPART [NOVOLOG] 3 ML PEN SC ×8 (03:11→21:00)
[2018-06-01] MEDS: PANTOPRAZOLE (EC) 40 MG TAB PO (05:51)
[2018-06-01] MEDS: DULOXETINE 30 MG CAP DR PO (08:16)
[2018-06-01] MEDS: APIXABAN 5 MG TABLET PO ×2 (08:16→21:17)
[2018-06-01] MEDS: FAMOTIDINE 20 MG TAB PO ×2 (08:17→21:17)
[2018-06-01] MEDS: ASCORBIC ACID 500 MG TAB PO (08:17)
[2018-06-01] MEDS: MULTIVITAMINS THERAPEUTIC TAB PO (08:17)
[2018-06-01] MEDS: BUMETANIDE 0.5 MG TAB PO (08:17)
[2018-06-01] MEDS: ISOSORBIDE DINITRATE 10 MG TAB PO ×3 (08:18→21:20)
[2018-06-01] MEDS: FERROUS SULFATE (EC) 325 MG TAB PO (08:18)
[2018-06-01] MEDS: SENNA TAB PO ×2 (08:18→21:17)
[2018-06-01] MEDS: LISINOPRIL 5 MG TAB PO (08:19)
[2018-06-01] MEDS: COLLAGENASE 5 GM (UD JAR) TOP (08:19)
[2018-06-01] MEDS: METOPROLOL 25 MG TAB PO ×2 (08:19→21:21)
[2018-06-01] MEDS: FLUTICASONE/VILANTEROL 100-25 INH (08:20)
[2018-06-01 08:34] LABS: MAGNESIUM 1.9 mg/dl (1.7-2.5)
[2018-06-01 08:37] LABS: ANION GAP 9 (8-16); BLOOD UREA NITROGEN 36 mg/dl (7-20); CALCIUM 8.4 mg/dl (8.4-10.2); CARBON DIOXIDE 28 mmol/L (21-31); CHLORIDE 109 mmol/L (97-110); CREATININE 0.81 mg/dl (0.61-1.24); GLUCOSE 111 mg/dl (70-220); SODIUM 142 mmol/L (135-144)
[2018-06-01] MEDS: BUMETANIDE 1 MG INJ IV (16:00)
[2018-06-01] MEDS: LISINOPRIL 10 MG TAB PO (21:21)
[2018-06-01] MEDS: INSULIN DETEMIR [LEVEMIR] (100 UNITS/ML) SYG SC (21:25)
[2018-06-02] MEDS: HYDROmorphONE 0.5 MG/0.5 ML SYG IV ×6 (01:31→23:56)
[2018-06-02] MEDS: ACCU-CHEK XX (01:38)
[2018-06-02] MEDS: PANTOPRAZOLE (EC) 40 MG TAB PO (05:43)
[2018-06-02] MEDS: INSULIN ASPART [NOVOLOG] 3 ML PEN SC ×7 (08:14→21:50)
[2018-06-02] MEDS: MULTIVITAMINS THERAPEUTIC TAB PO (08:23)
[2018-06-02] MEDS: FERROUS SULFATE (EC) 325 MG TAB PO (08:23)
[2018-06-02] MEDS: DULOXETINE 30 MG CAP DR PO (08:23)
[2018-06-02] MEDS: ASCORBIC ACID 500 MG TAB PO (08:23)
[2018-06-02] MEDS: SENNA TAB PO ×2 (08:23→21:42)
[2018-06-02] MEDS: FLUTICASONE/VILANTEROL 100-25 INH (08:23)
[2018-06-02] MEDS: FAMOTIDINE 20 MG TAB PO ×2 (08:23→21:44)
[2018-06-02] MEDS: APIXABAN 5 MG TABLET PO ×2 (08:23→21:42)
[2018-06-02] MEDS: METOPROLOL 25 MG TAB PO ×2 (08:24→21:43)
[2018-06-02] MEDS: BUMETANIDE 0.5 MG TAB PO (08:24)
[2018-06-02] MEDS: LISINOPRIL 10 MG TAB PO ×2 (08:24→21:43)
[2018-06-02] MEDS: ISOSORBIDE DINITRATE 10 MG TAB PO ×3 (08:24→21:44)
[2018-06-02] MEDS: COLLAGENASE 5 GM (UD JAR) TOP ×2 (08:25→22:39)
[2018-06-02 16:24] LABS: TROPONIN-I < 0.012 ng/ml (0.000-0.120)
[2018-06-02] MEDS: INSULIN DETEMIR [LEVEMIR] (100 UNITS/ML) SYG SC (21:48)
[2018-06-03] MEDS: ACCU-CHEK XX ×3 (02:00→21:00)
[2018-06-03] MEDS: HYDROmorphONE 0.5 MG/0.5 ML SYG IV ×5 (04:54→22:49)
[2018-06-03] MEDS: PANTOPRAZOLE (EC) 40 MG TAB PO ×2 (05:27→10:20)
[2018-06-03] MEDS: INSULIN ASPART [NOVOLOG] 3 ML PEN SC ×7 (08:00→20:17)
[2018-06-03] MEDS: FERROUS SULFATE (EC) 325 MG TAB PO (10:20)
[2018-06-03] MEDS: APIXABAN 5 MG TABLET PO ×2 (10:20→20:06)
[2018-06-03] MEDS: SENNA TAB PO ×2 (10:20→20:05)
[2018-06-03] MEDS: FAMOTIDINE 20 MG TAB PO ×2 (10:20→20:05)
[2018-06-03] MEDS: DULOXETINE 30 MG CAP DR PO (10:20)
[2018-06-03] MEDS: ASCORBIC ACID 500 MG TAB PO (10:20)
[2018-06-03] MEDS: LISINOPRIL 10 MG TAB PO ×2 (10:21→20:05)
[2018-06-03] MEDS: MULTIVITAMINS THERAPEUTIC TAB PO (10:21)
[2018-06-03] MEDS: BUMETANIDE 0.5 MG TAB PO (10:21)
[2018-06-03] MEDS: ISOSORBIDE DINITRATE 10 MG TAB PO ×3 (10:21→20:05)
[2018-06-03] MEDS: FLUOCINONIDE 0.05% 15 GM CR TOP ×2 (10:22→21:00)
[2018-06-03] MEDS: METOPROLOL 25 MG TAB PO ×2 (10:22→20:06)
[2018-06-03] MEDS: COLLAGENASE 5 GM (UD JAR) TOP (10:23)
[2018-06-03] MEDS: FLUTICASONE/VILANTEROL 100-25 INH (10:24)
[2018-06-03] MEDS: INSULIN DETEMIR [LEVEMIR] (100 UNITS/ML) SYG SC (20:09)
[2018-06-04] MEDS: ACCU-CHEK XX ×5 (02:00→21:00)
[2018-06-04] MEDS: HYDROmorphONE 0.5 MG/0.5 ML SYG IV ×5 (03:08→20:00)
[2018-06-04] MEDS: PANTOPRAZOLE (EC) 40 MG TAB PO (06:54)
[2018-06-04] MEDS: INSULIN ASPART [NOVOLOG] 3 ML PEN SC ×7 (08:00→20:16)
[2018-06-04] MEDS: FLUTICASONE/VILANTEROL 100-25 INH (08:25)
[2018-06-04] MEDS: COLLAGENASE 5 GM (UD JAR) TOP (08:25)
[2018-06-04] MEDS: SENNA TAB PO ×2 (08:25→20:17)
[2018-06-04] MEDS: FAMOTIDINE 20 MG TAB PO ×2 (08:26→20:14)
[2018-06-04] MEDS: FERROUS SULFATE (EC) 325 MG TAB PO (08:26)
[2018-06-04] MEDS: DULOXETINE 30 MG CAP DR PO (08:26)
[2018-06-04] MEDS: ASCORBIC ACID 500 MG TAB PO (08:26)
[2018-06-04] MEDS: APIXABAN 5 MG TABLET PO ×2 (08:26→20:15)
[2018-06-04] MEDS: LISINOPRIL 10 MG TAB PO ×2 (08:26→20:17)
[2018-06-04] MEDS: MULTIVITAMINS THERAPEUTIC TAB PO (08:26)
[2018-06-04] MEDS: METOPROLOL 25 MG TAB PO ×2 (08:27→20:15)
[2018-06-04] MEDS: LINAGLIPTIN 5 MG TABLET PO (08:28)
[2018-06-04] MEDS: FLUOCINONIDE 0.05% 15 GM CR TOP ×2 (08:29→21:26)
[2018-06-04] MEDS: BUMETANIDE 0.5 MG TAB PO (09:39)
[2018-06-04] MEDS: ISOSORBIDE DINITRATE 10 MG TAB PO ×3 (09:40→20:15)
[2018-06-04 14:19] LABS: ADD MAN DIFF? NO
[2018-06-04 14:22] LABS: WHITE BLOOD COUNT 6.9 10^3/ul (4.8-10.8)
[2018-06-04 14:22] LABS: BASOPHILS % 0.4 % (0.0-2.0); EOSINOPHILS # 0.3 10^3/ul (0.0-0.5); EOSINOPHILS % 4.9 % (0.0-7.0); HEMATOCRIT 33.9 % (42.0-52.0); HEMOGLOBIN 10.5 g/dl (14.0-18.0); LYMPHOCYTES # 1.1 10^3/ul (0.8-2.9); LYMPHOCYTES % 15.7 % (15.0-51.0); MEAN CORPUSCULAR HEMOGLOBIN 25.7 pg (29.0-33.0); MEAN CORPUSCULAR VOLUME 82.9 fl (82.0-101.0); MEAN PLATELET VOLUME 10.2 fl (7.4-10.4); MONOCYTE # 0.4 10^3/ul (0.3-0.9); NEUTROPHILS % 72.4 % (39.0-77.0); PLATELET COUNT 165 10^3/UL (140-415); RED BLOOD COUNT 4.09 10^6/ul (4.70-6.10); RED CELL DISTRIBUTION WIDTH 14.5 % (11.5-14.5)
[2018-06-04 14:39] LABS: ANION GAP 16 (8-16); BLOOD UREA NITROGEN 47 mg/dl (7-20); CARBON DIOXIDE 30 mmol/L (21-31); CHLORIDE 105 mmol/L (97-110); CREATININE 1.02 mg/dl (0.61-1.24); GLUCOSE 118 mg/dl (70-220); POTASSIUM 4.4 mmol/L (3.5-5.1); SODIUM 147 mmol/L (135-144)
[2018-06-04] MEDS: ACETAMINOPHEN 325 MG TAB PO (18:28)
[2018-06-04] MEDS: INSULIN DETEMIR [LEVEMIR] (100 UNITS/ML) SYG SC (20:02)
[2018-06-05] MEDS: ACCU-CHEK XX ×5 (01:27→21:21)
[2018-06-05] MEDS: HYDROmorphONE 0.5 MG/0.5 ML SYG IV ×5 (02:46→18:50)
[2018-06-05] MEDS: PANTOPRAZOLE (EC) 40 MG TAB PO (06:20)
[2018-06-05] MEDS: INSULIN ASPART [NOVOLOG] 3 ML PEN SC ×7 (08:00→20:39)
[2018-06-05] MEDS: METOPROLOL 25 MG TAB PO ×2 (08:36→20:33)
[2018-06-05] MEDS: FLUOCINONIDE 0.05% 15 GM CR TOP ×2 (08:36→21:00)
[2018-06-05] MEDS: APIXABAN 5 MG TABLET PO ×2 (08:37→20:33)
[2018-06-05] MEDS: MULTIVITAMINS THERAPEUTIC TAB PO (08:37)
[2018-06-05] MEDS: LINAGLIPTIN 5 MG TABLET PO (08:37)
[2018-06-05] MEDS: LISINOPRIL 10 MG TAB PO ×2 (08:37→20:34)
[2018-06-05] MEDS: DULOXETINE 30 MG CAP DR PO (08:38)
[2018-06-05] MEDS: FERROUS SULFATE (EC) 325 MG TAB PO (08:38)
[2018-06-05] MEDS: FAMOTIDINE 20 MG TAB PO ×2 (08:38→20:33)
[2018-06-05] MEDS: BUMETANIDE 0.5 MG TAB PO (08:38)
[2018-06-05] MEDS: ASCORBIC ACID 500 MG TAB PO (08:38)
[2018-06-05] MEDS: FLUTICASONE/VILANTEROL 100-25 INH (08:38)
[2018-06-05] MEDS: ISOSORBIDE DINITRATE 10 MG TAB PO ×3 (08:38→20:33)
[2018-06-05] MEDS: SENNA TAB PO ×2 (08:39→20:34)
[2018-06-05] MEDS: COLLAGENASE 5 GM (UD JAR) TOP (08:39)
[2018-06-05] MEDS: NITROGLYCERIN (SL) 0.4 MG TAB SL (10:22)
[2018-06-05 10:30] LABS: ADD MAN DIFF? NO
[2018-06-05 10:32] LABS: WHITE BLOOD COUNT 6.2 10^3/ul (4.8-10.8)
[2018-06-05 10:32] LABS: BASOPHILS % 0.6 % (0.0-2.0); EOSINOPHILS # 0.4 10^3/ul (0.0-0.5); HEMATOCRIT 34.7 % (42.0-52.0); HEMOGLOBIN 10.7 g/dl (14.0-18.0); LYMPHOCYTES % 15.9 % (15.0-51.0); MEAN CORPUSCULAR HEMOGLOBIN 25.5 pg (29.0-33.0); MEAN CORPUSCULAR HGB CONC 30.8 g/dl (32.0-37.0); MEAN CORPUSCULAR VOLUME 82.6 fl (82.0-101.0); MEAN PLATELET VOLUME 10.4 fl (7.4-10.4); MONOCYTE # 0.4 10^3/ul (0.3-0.9); MONOCYTES % 6.6 % (0.0-11.0); NEUTROPHIL # 4.3 10^3/ul (1.6-7.5); NEUTROPHILS % 69.9 % (39.0-77.0); PLATELET COUNT 171 10^3/UL (140-415); RED CELL DISTRIBUTION WIDTH 14.6 % (11.5-14.5)
[2018-06-05 10:55] LABS: ANION GAP 13 (8-16); BLOOD UREA NITROGEN 46 mg/dl (7-20); CALCIUM 9.2 mg/dl (8.4-10.2); CARBON DIOXIDE 30 mmol/L (21-31); CHLORIDE 107 mmol/L (97-110); CREATININE 0.96 mg/dl (0.61-1.24); GLUCOSE 150 mg/dl (70-220); POTASSIUM 4.4 mmol/L (3.5-5.1); SODIUM 146 mmol/L (135-144)
[2018-06-05] MEDS: ALPRAZOLAM 0.25 MG TAB PO (17:02)
[2018-06-05] MEDS: INSULIN DETEMIR [LEVEMIR] (100 UNITS/ML) SYG SC (20:00)
[2018-06-06] MEDS: HYDROmorphONE 0.5 MG/0.5 ML SYG IV ×6 (00:09→22:02)
[2018-06-06] MEDS: ACCU-CHEK XX ×5 (01:58→21:06)
[2018-06-06] MEDS: PANTOPRAZOLE (EC) 40 MG TAB PO ×2 (06:31→09:36)
[2018-06-06 06:52] LABS: ADD MAN DIFF? NO; BASOPHILS % 0.5 % (0.0-2.0); EOSINOPHILS # 0.4 10^3/ul (0.0-0.5); HEMATOCRIT 34.6 % (42.0-52.0); HEMOGLOBIN 10.7 g/dl (14.0-18.0); LYMPHOCYTES # 1.1 10^3/ul (0.8-2.9); LYMPHOCYTES % 17.8 % (15.0-51.0); MEAN CORPUSCULAR HEMOGLOBIN 25.4 pg (29.0-33.0); MEAN CORPUSCULAR HGB CONC 30.9 g/dl (32.0-37.0); MEAN CORPUSCULAR VOLUME 82.2 fl (82.0-101.0); MEAN PLATELET VOLUME 10.4 fl (7.4-10.4); MONOCYTE # 0.5 10^3/ul (0.3-0.9); MONOCYTES % 9.1 % (0.0-11.0); NEUTROPHIL # 3.9 10^3/ul (1.6-7.5); NEUTROPHILS % 65.8 % (39.0-77.0); PLATELET COUNT 164 10^3/UL (140-415); RED BLOOD COUNT 4.21 10^6/ul (4.70-6.10); RED CELL DISTRIBUTION WIDTH 14.7 % (11.5-14.5)
[2018-06-06 07:27] LABS: ANION GAP 10 (8-16); BLOOD UREA NITROGEN 46 mg/dl (7-20); CALCIUM 9.2 mg/dl (8.4-10.2); CARBON DIOXIDE 32 mmol/L (21-31); CHLORIDE 108 mmol/L (97-110); CREATININE 1.01 mg/dl (0.61-1.24); GLUCOSE 185 mg/dl (70-220); POTASSIUM 4.7 mmol/L (3.5-5.1); SODIUM 145 mmol/L (135-144)
[2018-06-06] MEDS: FAMOTIDINE 20 MG TAB PO ×2 (09:35→21:07)
[2018-06-06] MEDS: DULOXETINE 30 MG CAP DR PO (09:35)
[2018-06-06] MEDS: SENNA TAB PO ×2 (09:35→21:00)
[2018-06-06] MEDS: FERROUS SULFATE (EC) 325 MG TAB PO (09:35)
[2018-06-06] MEDS: BUMETANIDE 0.5 MG TAB PO (09:35)
[2018-06-06] MEDS: MULTIVITAMINS THERAPEUTIC TAB PO (09:35)
[2018-06-06] MEDS: FLUTICASONE/VILANTEROL 100-25 INH (09:36)
[2018-06-06] MEDS: LINAGLIPTIN 5 MG TABLET PO (09:36)
[2018-06-06] MEDS: APIXABAN 5 MG TABLET PO ×2 (09:36→21:08)
[2018-06-06] MEDS: ASCORBIC ACID 500 MG TAB PO (09:36)
[2018-06-06] MEDS: COLLAGENASE 5 GM (UD JAR) TOP (09:36)
[2018-06-06] MEDS: METOPROLOL 25 MG TAB PO ×2 (09:37→21:08)
[2018-06-06] MEDS: LISINOPRIL 10 MG TAB PO (09:37)
[2018-06-06] MEDS: ISOSORBIDE DINITRATE 10 MG TAB PO ×3 (09:37→21:07)
[2018-06-06] MEDS: INSULIN ASPART [NOVOLOG] 3 ML PEN SC ×7 (09:39→21:00)
[2018-06-06] MEDS: FUROSEMIDE 20 MG INJ IV (16:41)
[2018-06-06] MEDS: metFORMIN 500 MG TAB PO (18:15)
[2018-06-06] MEDS: ALPRAZOLAM 0.25 MG TAB PO (18:15)
[2018-06-06] MEDS: LISINOPRIL 20 MG TAB PO (20:09)
[2018-06-06] MEDS: INSULIN DETEMIR [LEVEMIR] (100 UNITS/ML) SYG SC (21:14)
[2018-06-07] MEDS: ACCU-CHEK XX ×5 (02:00→20:23)
[2018-06-07] MEDS: HYDROmorphONE 0.5 MG/0.5 ML SYG IV ×5 (02:22→20:05)
[2018-06-07] MEDS: INSULIN ASPART [NOVOLOG] 3 ML PEN SC ×8 (07:33→20:22)
[2018-06-07] MEDS: BUMETANIDE 0.5 MG TAB PO (08:57)
[2018-06-07] MEDS: MULTIVITAMINS THERAPEUTIC TAB PO (08:57)
[2018-06-07] MEDS: SENNA TAB PO ×2 (08:57→20:04)
[2018-06-07] MEDS: DULOXETINE 30 MG CAP DR PO (08:57)
[2018-06-07] MEDS: FAMOTIDINE 20 MG TAB PO ×2 (08:57→20:04)
[2018-06-07] MEDS: LISINOPRIL 20 MG TAB PO ×2 (08:58→20:07)
[2018-06-07] MEDS: APIXABAN 5 MG TABLET PO ×2 (08:59→20:04)
[2018-06-07] MEDS: ASCORBIC ACID 500 MG TAB PO (08:59)
[2018-06-07] MEDS: FERROUS SULFATE (EC) 325 MG TAB PO (08:59)
[2018-06-07] MEDS: EMPAGLIFLOZIN 10 MG TABLET PO (08:59)
[2018-06-07] MEDS: metFORMIN 500 MG TAB PO ×3 (08:59→17:24)
[2018-06-07] MEDS: ISOSORBIDE DINITRATE 10 MG TAB PO ×3 (09:00→20:07)
[2018-06-07] MEDS: LINAGLIPTIN 5 MG TABLET PO (09:00)
[2018-06-07] MEDS: METOPROLOL 25 MG TAB PO ×2 (09:00→20:07)
[2018-06-07] MEDS: COLLAGENASE 5 GM (UD JAR) TOP (09:00)
[2018-06-07] MEDS: FLUTICASONE/VILANTEROL 100-25 INH (09:01)
[2018-06-07] MEDS: INSULIN DETEMIR [LEVEMIR] (100 UNITS/ML) SYG SC (20:18)
[2018-06-07] MEDS: ALPRAZOLAM 0.25 MG TAB PO (21:29)
[2018-06-08] MEDS: HYDROmorphONE 0.5 MG/0.5 ML SYG IV ×6 (00:09→19:54)
[2018-06-08] MEDS: ACCU-CHEK XX ×5 (02:00→20:28)
[2018-06-08] MEDS: PANTOPRAZOLE (EC) 40 MG TAB PO (06:29)
[2018-06-08] MEDS: INSULIN ASPART [NOVOLOG] 3 ML PEN SC ×7 (08:00→20:28)
[2018-06-08] MEDS: ASCORBIC ACID 500 MG TAB PO (08:22)
[2018-06-08] MEDS: FERROUS SULFATE (EC) 325 MG TAB PO (08:22)
[2018-06-08] MEDS: ISOSORBIDE DINITRATE 10 MG TAB PO ×3 (08:22→20:33)
[2018-06-08] MEDS: FAMOTIDINE 20 MG TAB PO ×2 (08:22→20:31)
[2018-06-08] MEDS: DULOXETINE 30 MG CAP DR PO (08:22)
[2018-06-08] MEDS: BUMETANIDE 0.5 MG TAB PO (08:22)
[2018-06-08] MEDS: metFORMIN 500 MG TAB PO ×2 (08:22→17:30)
[2018-06-08] MEDS: SENNA TAB PO ×2 (08:24→20:32)
[2018-06-08] MEDS: LISINOPRIL 20 MG TAB PO ×2 (08:24→20:35)
[2018-06-08] MEDS: LINAGLIPTIN 5 MG TABLET PO (08:24)
[2018-06-08] MEDS: METOPROLOL 25 MG TAB PO ×2 (08:25→20:33)
[2018-06-08] MEDS: APIXABAN 5 MG TABLET PO ×2 (08:26→20:32)
[2018-06-08] MEDS: COLLAGENASE 5 GM (UD JAR) TOP (08:26)
[2018-06-08] MEDS: MULTIVITAMINS THERAPEUTIC TAB PO (08:26)
[2018-06-08] MEDS: EMPAGLIFLOZIN 10 MG TABLET PO (08:30)
[2018-06-08] MEDS: FLUTICASONE/VILANTEROL 100-25 INH ×2 (09:00→16:34)
[2018-06-08] MEDS: INSULIN DETEMIR [LEVEMIR] (100 UNITS/ML) SYG SC (20:39)
[2018-06-09] MEDS: HYDROmorphONE 0.5 MG/0.5 ML SYG IV ×5 (00:01→21:12)
[2018-06-09] MEDS: ACCU-CHEK XX ×5 (01:53→21:08)
[2018-06-09] MEDS: ALPRAZOLAM 0.25 MG TAB PO (03:24)
[2018-06-09] MEDS: INSULIN ASPART [NOVOLOG] 3 ML PEN SC ×7 (08:00→21:00)
[2018-06-09] MEDS: MULTIVITAMINS THERAPEUTIC TAB PO (11:06)
[2018-06-09] MEDS: BUMETANIDE 0.5 MG TAB PO ×2 (11:07→17:52)
[2018-06-09] MEDS: FAMOTIDINE 20 MG TAB PO ×2 (11:07→21:05)
[2018-06-09] MEDS: FLUTICASONE/VILANTEROL 100-25 INH (11:07)
[2018-06-09] MEDS: FERROUS SULFATE (EC) 325 MG TAB PO (11:07)
[2018-06-09] MEDS: SENNA TAB PO ×3 (11:07→21:05)
[2018-06-09] MEDS: ASCORBIC ACID 500 MG TAB PO (11:08)
[2018-06-09] MEDS: PANTOPRAZOLE (EC) 40 MG TAB PO (11:08)
[2018-06-09] MEDS: DULOXETINE 30 MG CAP DR PO (11:08)
[2018-06-09] MEDS: LISINOPRIL 20 MG TAB PO ×2 (11:09→21:05)
[2018-06-09] MEDS: LINAGLIPTIN 5 MG TABLET PO (11:09)
[2018-06-09] MEDS: ISOSORBIDE DINITRATE 10 MG TAB PO ×3 (11:09→21:06)
[2018-06-09] MEDS: METOPROLOL 25 MG TAB PO ×2 (11:09→21:05)
[2018-06-09] MEDS: COLLAGENASE 5 GM (UD JAR) TOP (11:10)
[2018-06-09] MEDS: metFORMIN 500 MG TAB PO ×2 (11:10→17:53)
[2018-06-09] MEDS: EMPAGLIFLOZIN 10 MG TABLET PO (11:10)
[2018-06-09] MEDS: APIXABAN 5 MG TABLET PO ×2 (11:12→21:05)
[2018-06-09] MEDS: INSULIN DETEMIR [LEVEMIR] (100 UNITS/ML) SYG SC (21:03)
[2018-06-10] MEDS: HYDROmorphONE 0.5 MG/0.5 ML SYG IV ×5 (01:25→21:11)
[2018-06-10] MEDS: ACCU-CHEK XX ×5 (02:00→21:00)
[2018-06-10] MEDS: PANTOPRAZOLE (EC) 40 MG TAB PO (07:30)
[2018-06-10] MEDS: INSULIN ASPART [NOVOLOG] 3 ML PEN SC ×7 (07:55→21:00)
[2018-06-10 08:00] LABS: ADD MAN DIFF? NO
[2018-06-10 08:08] LABS: BASOPHILS % 0.6 % (0.0-2.0); EOSINOPHILS # 0.4 10^3/ul (0.0-0.5); EOSINOPHILS % 5.8 % (0.0-7.0); HEMATOCRIT 36.8 % (42.0-52.0); HEMOGLOBIN 11.3 g/dl (14.0-18.0); LYMPHOCYTES # 1.4 10^3/ul (0.8-2.9); LYMPHOCYTES % 19.5 % (15.0-51.0); MEAN CORPUSCULAR HEMOGLOBIN 25.6 pg (29.0-33.0); MEAN CORPUSCULAR HGB CONC 30.7 g/dl (32.0-37.0); MEAN CORPUSCULAR VOLUME 83.4 fl (82.0-101.0); MEAN PLATELET VOLUME 10.8 fl (7.4-10.4); MONOCYTE # 0.6 10^3/ul (0.3-0.9); MONOCYTES % 9.1 % (0.0-11.0); NEUTROPHIL # 4.5 10^3/ul (1.6-7.5); NEUTROPHILS % 64.4 % (39.0-77.0); PLATELET COUNT 196 10^3/UL (140-415); RED BLOOD COUNT 4.41 10^6/ul (4.70-6.10); RED CELL DISTRIBUTION WIDTH 14.7 % (11.5-14.5)
[2018-06-10 08:08] LABS: WHITE BLOOD COUNT 6.9 10^3/ul (4.8-10.8)
[2018-06-10 08:24] LABS: ANION GAP 12 (8-16); BLOOD UREA NITROGEN 65 mg/dl (7-20); CALCIUM 9.6 mg/dl (8.4-10.2); CARBON DIOXIDE 31 mmol/L (21-31); CHLORIDE 102 mmol/L (97-110); CREATININE 1.12 mg/dl (0.61-1.24); GLUCOSE 108 mg/dl (70-220); POTASSIUM 4.4 mmol/L (3.5-5.1); SODIUM 141 mmol/L (135-144)
[2018-06-10] MEDS: EMPAGLIFLOZIN 10 MG TABLET PO (09:05)
[2018-06-10] MEDS: APIXABAN 5 MG TABLET PO ×2 (09:05→21:05)
[2018-06-10] MEDS: LINAGLIPTIN 5 MG TABLET PO (09:05)
[2018-06-10] MEDS: LISINOPRIL 20 MG TAB PO ×2 (09:06→21:16)
[2018-06-10] MEDS: ISOSORBIDE DINITRATE 10 MG TAB PO ×3 (09:06→21:15)
[2018-06-10] MEDS: BUMETANIDE 0.5 MG TAB PO (09:06)
[2018-06-10] MEDS: FAMOTIDINE 20 MG TAB PO ×2 (09:06→21:05)
[2018-06-10] MEDS: MULTIVITAMINS THERAPEUTIC TAB PO (09:06)
[2018-06-10] MEDS: DULOXETINE 30 MG CAP DR PO (09:06)
[2018-06-10] MEDS: FERROUS SULFATE (EC) 325 MG TAB PO (09:06)
[2018-06-10] MEDS: metFORMIN 500 MG TAB PO ×2 (09:07→18:03)
[2018-06-10] MEDS: ASCORBIC ACID 500 MG TAB PO (09:07)
[2018-06-10] MEDS: COLLAGENASE 5 GM (UD JAR) TOP (09:07)
[2018-06-10] MEDS: METOPROLOL 25 MG TAB PO ×2 (09:07→21:16)
[2018-06-10] MEDS: SENNA TAB PO ×2 (09:07→21:05)
[2018-06-10] MEDS: ONDANSETRON 4 MG INJ IV (13:26)
[2018-06-10] MEDS: INSULIN DETEMIR [LEVEMIR] (100 UNITS/ML) SYG SC (21:18)
[2018-06-11] MEDS: ACCU-CHEK XX ×5 (02:00→21:00)
[2018-06-11] MEDS: HYDROmorphONE 0.5 MG/0.5 ML SYG IV ×5 (02:52→20:18)
[2018-06-11] MEDS: AL HYDROX/MG HYDROX/SIMETH 30 ML CUP PO ×2 (03:46→11:42)
[2018-06-11] MEDS: PANTOPRAZOLE (EC) 40 MG TAB PO ×2 (05:59→09:52)
[2018-06-11] MEDS: INSULIN ASPART [NOVOLOG] 3 ML PEN SC ×7 (07:43→20:25)
[2018-06-11] MEDS: SENNA TAB PO ×2 (09:52→20:20)
[2018-06-11] MEDS: LISINOPRIL 20 MG TAB PO ×2 (09:52→20:20)
[2018-06-11] MEDS: metFORMIN 500 MG TAB PO ×2 (09:52→17:38)
[2018-06-11] MEDS: FERROUS SULFATE (EC) 325 MG TAB PO (09:53)
[2018-06-11] MEDS: FAMOTIDINE 20 MG TAB PO ×2 (09:53→20:20)
[2018-06-11] MEDS: APIXABAN 5 MG TABLET PO ×2 (09:53→20:20)
[2018-06-11] MEDS: METOPROLOL 25 MG TAB PO ×2 (09:53→20:22)
[2018-06-11] MEDS: DULOXETINE 30 MG CAP DR PO (09:53)
[2018-06-11] MEDS: MULTIVITAMINS THERAPEUTIC TAB PO (09:53)
[2018-06-11] MEDS: ISOSORBIDE DINITRATE 10 MG TAB PO ×3 (09:53→20:21)
[2018-06-11] MEDS: LINAGLIPTIN 5 MG TABLET PO (09:53)
[2018-06-11] MEDS: COLLAGENASE 5 GM (UD JAR) TOP (09:54)
[2018-06-11] MEDS: EMPAGLIFLOZIN 10 MG TABLET PO (09:54)
[2018-06-11] MEDS: ASCORBIC ACID 500 MG TAB PO (09:54)
[2018-06-11] MEDS: FLUTICASONE/VILANTEROL 100-25 INH (09:55)
[2018-06-11] MEDS: INSULIN DETEMIR [LEVEMIR] (100 UNITS/ML) SYG SC (20:26)
[2018-06-11] MEDS: ALPRAZOLAM 0.25 MG TAB PO (22:16)
[2018-06-12] MEDS: HYDROmorphONE 0.5 MG/0.5 ML SYG IV ×6 (00:28→22:01)
[2018-06-12] MEDS: AL HYDROX/MG HYDROX/SIMETH 30 ML CUP PO (00:36)
[2018-06-12] MEDS: ACCU-CHEK XX ×5 (02:00→21:01)
[2018-06-12] MEDS: INSULIN ASPART [NOVOLOG] 3 ML PEN SC ×7 (08:00→21:00)
[2018-06-12] MEDS: BUMETANIDE 0.5 MG TAB PO (09:00)
[2018-06-12] MEDS: SENNA TAB PO (09:00)
[2018-06-12] MEDS: COLLAGENASE 5 GM (UD JAR) TOP (09:00)
[2018-06-12] MEDS: FLUTICASONE/VILANTEROL 100-25 INH (09:00)
[2018-06-12] MEDS: LOPERAMIDE HCL 1 MG/5 ML LIQUID (10 ML UD CUP) PO (12:54)
[2018-06-12] MEDS: MULTIVITAMINS THERAPEUTIC TAB PO (12:54)
[2018-06-12] MEDS: FAMOTIDINE 20 MG TAB PO ×2 (12:55→21:05)
[2018-06-12] MEDS: DULOXETINE 30 MG CAP DR PO (12:55)
[2018-06-12] MEDS: ISOSORBIDE DINITRATE 10 MG TAB PO ×3 (12:55→20:58)
[2018-06-12] MEDS: ASCORBIC ACID 500 MG TAB PO (12:55)
[2018-06-12] MEDS: METOPROLOL 25 MG TAB PO ×2 (12:55→20:59)
[2018-06-12] MEDS: EMPAGLIFLOZIN 10 MG TABLET PO (12:55)
[2018-06-12] MEDS: metFORMIN 500 MG TAB PO ×3 (12:56→18:00)
[2018-06-12] MEDS: FERROUS SULFATE (EC) 325 MG TAB PO (12:56)
[2018-06-12] MEDS: LISINOPRIL 20 MG TAB PO ×2 (12:56→20:59)
[2018-06-12] MEDS: PANTOPRAZOLE (EC) 40 MG TAB PO (12:56)
[2018-06-12] MEDS: LINAGLIPTIN 5 MG TABLET PO (12:56)
[2018-06-12] MEDS: APIXABAN 5 MG TABLET PO ×2 (12:56→20:59)
[2018-06-12] MEDS: INSULIN DETEMIR [LEVEMIR] (100 UNITS/ML) SYG SC (21:05)
[2018-06-13] MEDS: HYDROmorphONE 0.5 MG/0.5 ML SYG IV ×6 (01:55→22:30)
[2018-06-13] MEDS: ACCU-CHEK XX ×5 (02:00→21:00)
[2018-06-13] MEDS: MULTIVITAMINS THERAPEUTIC TAB PO (09:00)
[2018-06-13] MEDS: ASCORBIC ACID 500 MG TAB PO (09:00)
[2018-06-13] MEDS: LISINOPRIL 20 MG TAB PO ×2 (09:00→20:25)
[2018-06-13] MEDS: METOPROLOL 25 MG TAB PO ×2 (09:00→20:26)
[2018-06-13] MEDS: FAMOTIDINE 20 MG TAB PO ×2 (09:00→20:25)
[2018-06-13] MEDS: ISOSORBIDE DINITRATE 10 MG TAB PO ×3 (09:00→20:25)
[2018-06-13] MEDS: FERROUS SULFATE (EC) 325 MG TAB PO (09:00)
[2018-06-13] MEDS: INSULIN ASPART [NOVOLOG] 3 ML PEN SC ×7 (09:01→20:30)
[2018-06-13] MEDS: metFORMIN 500 MG TAB PO ×2 (09:04→17:26)
[2018-06-13] MEDS: EMPAGLIFLOZIN 10 MG TABLET PO (09:04)
[2018-06-13] MEDS: LINAGLIPTIN 5 MG TABLET PO (09:04)
[2018-06-13] MEDS: PANTOPRAZOLE (EC) 40 MG TAB PO (10:16)
[2018-06-13] MEDS: DULOXETINE 30 MG CAP DR PO (10:18)
[2018-06-13] MEDS: BUMETANIDE 0.5 MG TAB PO (10:18)
[2018-06-13] MEDS: APIXABAN 5 MG TABLET PO ×2 (10:19→20:25)
[2018-06-13] MEDS: FLUTICASONE/VILANTEROL 100-25 INH (10:21)
[2018-06-13 10:30] LABS: ADD MAN DIFF? NO
[2018-06-13] MEDS: COLLAGENASE 5 GM (UD JAR) TOP (10:31)
[2018-06-13 10:32] LABS: WHITE BLOOD COUNT 6.5 10^3/ul (4.8-10.8)
[2018-06-13 10:32] LABS: BASOPHILS % 0.5 % (0.0-2.0); EOSINOPHILS # 0.4 10^3/ul (0.0-0.5); EOSINOPHILS % 5.8 % (0.0-7.0); HEMATOCRIT 37.8 % (42.0-52.0); HEMOGLOBIN 11.7 g/dl (14.0-18.0); LYMPHOCYTES # 1.3 10^3/ul (0.8-2.9); LYMPHOCYTES % 20.1 % (15.0-51.0); MEAN CORPUSCULAR HEMOGLOBIN 25.9 pg (29.0-33.0); MEAN CORPUSCULAR VOLUME 83.8 fl (82.0-101.0); MEAN PLATELET VOLUME 10.3 fl (7.4-10.4); MONOCYTE # 0.6 10^3/ul (0.3-0.9); MONOCYTES % 8.7 % (0.0-11.0); NEUTROPHIL # 4.2 10^3/ul (1.6-7.5); NEUTROPHILS % 64.6 % (39.0-77.0); PLATELET COUNT 181 10^3/UL (140-415); RED BLOOD COUNT 4.51 10^6/ul (4.70-6.10); RED CELL DISTRIBUTION WIDTH 14.6 % (11.5-14.5)
[2018-06-13 10:52] LABS: ANION GAP 11 (8-16); BLOOD UREA NITROGEN 49 mg/dl (7-20); CALCIUM 9.6 mg/dl (8.4-10.2); CARBON DIOXIDE 34 mmol/L (21-31); CHLORIDE 103 mmol/L (97-110); CREATININE 1.14 mg/dl (0.61-1.24); GLUCOSE 166 mg/dl (70-220); POTASSIUM 4.8 mmol/L (3.5-5.1); SODIUM 143 mmol/L (135-144)
[2018-06-13] MEDS: ALPRAZOLAM 0.25 MG TAB PO (20:26)
[2018-06-13] MEDS: INSULIN DETEMIR [LEVEMIR] (100 UNITS/ML) SYG SC (20:29)
[2018-06-14] MEDS: ACCU-CHEK XX ×5 (00:40→20:47)
[2018-06-14] MEDS: HYDROmorphONE 0.5 MG/0.5 ML SYG IV ×5 (06:25→23:11)
[2018-06-14] MEDS: PANTOPRAZOLE (EC) 40 MG TAB PO (06:26)
[2018-06-14] MEDS: INSULIN ASPART [NOVOLOG] 3 ML PEN SC ×7 (08:00→20:47)
[2018-06-14] MEDS: LINAGLIPTIN 5 MG TABLET PO (09:11)
[2018-06-14] MEDS: BUMETANIDE 0.5 MG TAB PO (09:12)
[2018-06-14] MEDS: metFORMIN 500 MG TAB PO ×2 (09:12→17:08)
[2018-06-14] MEDS: METOPROLOL 25 MG TAB PO ×2 (09:12→20:42)
[2018-06-14] MEDS: EMPAGLIFLOZIN 10 MG TABLET PO (09:12)
[2018-06-14] MEDS: APIXABAN 5 MG TABLET PO ×2 (09:12→20:42)
[2018-06-14] MEDS: LISINOPRIL 20 MG TAB PO ×2 (09:13→20:43)
[2018-06-14] MEDS: DULOXETINE 30 MG CAP DR PO (09:13)
[2018-06-14] MEDS: ASCORBIC ACID 500 MG TAB PO (09:13)
[2018-06-14] MEDS: FAMOTIDINE 20 MG TAB PO ×2 (09:13→20:43)
[2018-06-14] MEDS: ISOSORBIDE DINITRATE 10 MG TAB PO ×3 (09:13→20:42)
[2018-06-14] MEDS: FERROUS SULFATE (EC) 325 MG TAB PO (09:13)
[2018-06-14] MEDS: MULTIVITAMINS THERAPEUTIC TAB PO (09:14)
[2018-06-14] MEDS: COLLAGENASE 5 GM (UD JAR) TOP (09:21)
[2018-06-14] MEDS: FLUTICASONE/VILANTEROL 100-25 INH (09:42)
[2018-06-14 17:20] LABS: B-TYPE NATRIURETIC PEPTIDE 2000 PG/ML (0-125)
[2018-06-14] MEDS: INSULIN DETEMIR [LEVEMIR] (100 UNITS/ML) SYG SC (20:45)
[2018-06-14] MEDS: ALPRAZOLAM 0.25 MG TAB PO (21:12)
[2018-06-15] MEDS: ACCU-CHEK XX ×5 (02:00→21:00)
[2018-06-15] MEDS: HYDROmorphONE 0.5 MG/0.5 ML SYG IV ×4 (03:10→20:54)
[2018-06-15] MEDS: EMPAGLIFLOZIN 10 MG TABLET PO ×2 (08:00→08:23)
[2018-06-15] MEDS: metFORMIN 500 MG TAB PO ×3 (08:00→17:06)
[2018-06-15] MEDS: FLUTICASONE/VILANTEROL 100-25 INH ×2 (08:14→09:00)
[2018-06-15] MEDS: MULTIVITAMINS THERAPEUTIC TAB PO ×2 (08:14→09:00)
[2018-06-15] MEDS: METOPROLOL 25 MG TAB PO ×3 (08:14→20:41)
[2018-06-15] MEDS: BUMETANIDE 0.5 MG TAB PO ×2 (08:14→09:00)
[2018-06-15] MEDS: FERROUS SULFATE (EC) 325 MG TAB PO ×2 (08:14→09:00)
[2018-06-15] MEDS: COLLAGENASE 5 GM (UD JAR) TOP ×3 (08:14→19:09)
[2018-06-15] MEDS: ISOSORBIDE DINITRATE 10 MG TAB PO ×4 (08:15→20:40)
[2018-06-15] MEDS: FAMOTIDINE 20 MG TAB PO ×3 (08:15→20:40)
[2018-06-15] MEDS: DULOXETINE 30 MG CAP DR PO ×2 (08:15→09:00)
[2018-06-15] MEDS: APIXABAN 5 MG TABLET PO ×3 (08:15→20:40)
[2018-06-15] MEDS: ASCORBIC ACID 500 MG TAB PO ×2 (08:15→09:00)
[2018-06-15] MEDS: LISINOPRIL 20 MG TAB PO ×3 (08:15→20:40)
[2018-06-15] MEDS: LINAGLIPTIN 5 MG TABLET PO ×2 (08:23→09:00)
[2018-06-15] MEDS: INSULIN ASPART [NOVOLOG] 3 ML PEN SC ×7 (08:25→20:39)
[2018-06-15 14:05] LABS: ADD MAN DIFF? NO
[2018-06-15 14:08] LABS: BASOPHILS % 0.5 % (0.0-2.0); EOSINOPHILS # 0.3 10^3/ul (0.0-0.5); EOSINOPHILS % 5.6 % (0.0-7.0); HEMATOCRIT 38.7 % (42.0-52.0); HEMOGLOBIN 12.2 g/dl (14.0-18.0); LYMPHOCYTES # 1.2 10^3/ul (0.8-2.9); LYMPHOCYTES % 20.9 % (15.0-51.0); MEAN CORPUSCULAR HEMOGLOBIN 25.6 pg (29.0-33.0); MEAN CORPUSCULAR HGB CONC 31.5 g/dl (32.0-37.0); MEAN CORPUSCULAR VOLUME 81.3 fl (82.0-101.0); MEAN PLATELET VOLUME 10.5 fl (7.4-10.4); MONOCYTE # 0.6 10^3/ul (0.3-0.9); NEUTROPHIL # 3.5 10^3/ul (1.6-7.5); NEUTROPHILS % 61.3 % (39.0-77.0); PLATELET COUNT 186 10^3/UL (140-415); RED BLOOD COUNT 4.76 10^6/ul (4.70-6.10); RED CELL DISTRIBUTION WIDTH 14.4 % (11.5-14.5)
[2018-06-15 14:08] LABS: WHITE BLOOD COUNT 5.7 10^3/ul (4.8-10.8)
[2018-06-15 14:28] LABS: ANION GAP 12 (8-16); BLOOD UREA NITROGEN 59 mg/dl (7-20); CALCIUM 9.7 mg/dl (8.4-10.2); CARBON DIOXIDE 30 mmol/L (21-31); CHLORIDE 104 mmol/L (97-110); CREATININE 1.02 mg/dl (0.61-1.24); GLUCOSE 118 mg/dl (70-220); POTASSIUM 4.1 mmol/L (3.5-5.1); SODIUM 142 mmol/L (135-144)
[2018-06-15] MEDS: BUMETANIDE 1 MG INJ IV (14:30)
[2018-06-15] MEDS: INSULIN DETEMIR [LEVEMIR] (100 UNITS/ML) SYG SC (20:42)
[2018-06-16] MEDS: HYDROmorphONE 0.5 MG/0.5 ML SYG IV ×6 (00:57→23:12)
[2018-06-16] MEDS: ACCU-CHEK XX ×5 (02:00→21:00)
[2018-06-16] MEDS: ALPRAZOLAM 0.25 MG TAB PO ×2 (02:42→12:49)
[2018-06-16 06:52] LABS: ADD MAN DIFF? NO
[2018-06-16 06:54] LABS: BASOPHILS % 0.6 % (0.0-2.0); EOSINOPHILS # 0.3 10^3/ul (0.0-0.5); EOSINOPHILS % 4.9 % (0.0-7.0); HEMATOCRIT 36.9 % (42.0-52.0); HEMOGLOBIN 11.6 g/dl (14.0-18.0); LYMPHOCYTES # 1.5 10^3/ul (0.8-2.9); LYMPHOCYTES % 22.8 % (15.0-51.0); MEAN CORPUSCULAR HEMOGLOBIN 25.7 pg (29.0-33.0); MEAN CORPUSCULAR HGB CONC 31.4 g/dl (32.0-37.0); MEAN CORPUSCULAR VOLUME 81.8 fl (82.0-101.0); MEAN PLATELET VOLUME 10.5 fl (7.4-10.4); MONOCYTE # 0.7 10^3/ul (0.3-0.9); MONOCYTES % 10.6 % (0.0-11.0); NEUTROPHIL # 3.9 10^3/ul (1.6-7.5); NEUTROPHILS % 60.6 % (39.0-77.0); PLATELET COUNT 194 10^3/UL (140-415); RED BLOOD COUNT 4.51 10^6/ul (4.70-6.10); RED CELL DISTRIBUTION WIDTH 14.7 % (11.5-14.5)
[2018-06-16 06:54] LABS: WHITE BLOOD COUNT 6.5 10^3/ul (4.8-10.8)
[2018-06-16 07:18] LABS: ANION GAP 12 (8-16); BLOOD UREA NITROGEN 56 mg/dl (7-20); CALCIUM 9.5 mg/dl (8.4-10.2); CARBON DIOXIDE 32 mmol/L (21-31); CHLORIDE 105 mmol/L (97-110); CREATININE 1.08 mg/dl (0.61-1.24); GLUCOSE 121 mg/dl (70-220); POTASSIUM 4.7 mmol/L (3.5-5.1); SODIUM 144 mmol/L (135-144)
[2018-06-16] MEDS: INSULIN ASPART [NOVOLOG] 3 ML PEN SC ×7 (08:00→20:26)
[2018-06-16] MEDS: FLUTICASONE/VILANTEROL 100-25 INH (08:41)
[2018-06-16] MEDS: COLLAGENASE 5 GM (UD JAR) TOP (08:41)
[2018-06-16] MEDS: metFORMIN 500 MG TAB PO ×3 (08:43→17:21)
[2018-06-16] MEDS: ISOSORBIDE DINITRATE 10 MG TAB PO ×3 (08:43→20:31)
[2018-06-16] MEDS: EMPAGLIFLOZIN 10 MG TABLET PO (08:44)
[2018-06-16] MEDS: LISINOPRIL 20 MG TAB PO ×2 (08:44→20:28)
[2018-06-16] MEDS: ASCORBIC ACID 500 MG TAB PO (08:44)
[2018-06-16] MEDS: FERROUS SULFATE (EC) 325 MG TAB PO (08:44)
[2018-06-16] MEDS: DULOXETINE 30 MG CAP DR PO (08:44)
[2018-06-16] MEDS: FAMOTIDINE 20 MG TAB PO ×2 (08:45→20:28)
[2018-06-16] MEDS: LINAGLIPTIN 5 MG TABLET PO (08:45)
[2018-06-16] MEDS: MULTIVITAMINS THERAPEUTIC TAB PO (08:45)
[2018-06-16] MEDS: METOPROLOL 25 MG TAB PO ×2 (08:46→20:32)
[2018-06-16] MEDS: APIXABAN 5 MG TABLET PO ×2 (08:48→20:28)
[2018-06-16] MEDS ORDERED: BUMETANIDE 0.5 MG TAB PO (09:00)
[2018-06-16] MEDS: BUMETANIDE 1 MG TAB PO (10:01)
[2018-06-16] MEDS: ACETAMINOPHEN 325 MG TAB PO (17:16)
[2018-06-16] MEDS: INSULIN DETEMIR [LEVEMIR] (100 UNITS/ML) SYG SC (20:30)
[2018-06-17] MEDS: ACCU-CHEK XX ×6 (01:49→20:29)
[2018-06-17] MEDS: HYDROmorphONE 0.5 MG/0.5 ML SYG IV ×5 (04:28→21:11)
[2018-06-17] MEDS: INSULIN ASPART [NOVOLOG] 3 ML PEN SC ×7 (08:00→20:28)
[2018-06-17] MEDS: FERROUS SULFATE (EC) 325 MG TAB PO (08:20)
[2018-06-17] MEDS: BUMETANIDE 1 MG TAB PO (08:20)
[2018-06-17] MEDS: EMPAGLIFLOZIN 10 MG TABLET PO (08:20)
[2018-06-17] MEDS: MULTIVITAMINS THERAPEUTIC TAB PO (08:20)
[2018-06-17] MEDS: LINAGLIPTIN 5 MG TABLET PO (08:21)
[2018-06-17] MEDS: DULOXETINE 30 MG CAP DR PO (08:21)
[2018-06-17] MEDS: LISINOPRIL 20 MG TAB PO ×2 (08:21→20:21)
[2018-06-17] MEDS: FAMOTIDINE 20 MG TAB PO ×2 (08:21→20:18)
[2018-06-17] MEDS: metFORMIN 500 MG TAB PO ×2 (08:21→17:13)
[2018-06-17] MEDS: APIXABAN 5 MG TABLET PO ×2 (08:21→20:19)
[2018-06-17] MEDS: ISOSORBIDE DINITRATE 10 MG TAB PO ×3 (08:21→20:21)
[2018-06-17] MEDS: METOPROLOL 25 MG TAB PO ×2 (08:21→20:20)
[2018-06-17] MEDS: ASCORBIC ACID 500 MG TAB PO (08:21)
[2018-06-17] MEDS: FLUTICASONE/VILANTEROL 100-25 INH (08:22)
[2018-06-17] MEDS: COLLAGENASE 5 GM (UD JAR) TOP (08:23)
[2018-06-17] MEDS: GABAPENTIN 100 MG CAP PO ×2 (14:57→20:19)
[2018-06-17] MEDS: INSULIN DETEMIR [LEVEMIR] (100 UNITS/ML) SYG SC (20:27)
[2018-06-17] MEDS: POLYETHYLENE GLYCOL 17 GM PACKET PO (20:27)
[2018-06-17] MEDS: SENNA TAB PO (20:28)
[2018-06-18] MEDS: HYDROmorphONE 0.5 MG/0.5 ML SYG IV ×5 (04:39→22:37)
[2018-06-18] MEDS: ACCU-CHEK XX ×4 (07:00→21:00)
[2018-06-18] MEDS: FLUTICASONE/VILANTEROL 100-25 INH (09:00)
[2018-06-18] MEDS: BUMETANIDE 1 MG TAB PO (09:00)
[2018-06-18] MEDS: COLLAGENASE 5 GM (UD JAR) TOP (09:00)
[2018-06-18] MEDS: ISOSORBIDE DINITRATE 10 MG TAB PO ×3 (10:08→20:39)
[2018-06-18] MEDS: LISINOPRIL 20 MG TAB PO ×2 (10:08→20:41)
[2018-06-18] MEDS: FERROUS SULFATE (EC) 325 MG TAB PO (10:08)
[2018-06-18] MEDS: ASCORBIC ACID 500 MG TAB PO (10:08)
[2018-06-18] MEDS: APIXABAN 5 MG TABLET PO ×2 (10:08→20:40)
[2018-06-18] MEDS: metFORMIN 500 MG TAB PO ×2 (10:08→17:30)
[2018-06-18] MEDS: MULTIVITAMINS THERAPEUTIC TAB PO (10:08)
[2018-06-18] MEDS: EMPAGLIFLOZIN 10 MG TABLET PO (10:08)
[2018-06-18] MEDS: FAMOTIDINE 20 MG TAB PO ×2 (10:08→20:40)
[2018-06-18] MEDS: GABAPENTIN 100 MG CAP PO ×3 (10:08→20:40)
[2018-06-18] MEDS: DULOXETINE 30 MG CAP DR PO (10:09)
[2018-06-18] MEDS: LINAGLIPTIN 5 MG TABLET PO (10:09)
[2018-06-18] MEDS: METOPROLOL 25 MG TAB PO ×2 (10:09→20:40)
[2018-06-18] MEDS: INSULIN ASPART [NOVOLOG] 3 ML PEN SC ×6 (10:32→21:00)
[2018-06-18 12:22] LABS: ADD MAN DIFF? NO
[2018-06-18 12:26] LABS: BASOPHIL # 0.1 10^3/ul (0.0-0.1); BASOPHILS % 0.8 % (0.0-2.0); EOSINOPHILS # 0.3 10^3/ul (0.0-0.5); EOSINOPHILS % 4.3 % (0.0-7.0); HEMATOCRIT 37.6 % (42.0-52.0); HEMOGLOBIN 11.9 g/dl (14.0-18.0); LYMPHOCYTES # 1.4 10^3/ul (0.8-2.9); LYMPHOCYTES % 21.9 % (15.0-51.0); MEAN CORPUSCULAR HEMOGLOBIN 25.6 pg (29.0-33.0); MEAN CORPUSCULAR HGB CONC 31.6 g/dl (32.0-37.0); MEAN PLATELET VOLUME 10.5 fl (7.4-10.4); MONOCYTE # 0.8 10^3/ul (0.3-0.9); NEUTROPHIL # 3.8 10^3/ul (1.6-7.5); NEUTROPHILS % 60.4 % (39.0-77.0); PLATELET COUNT 192 10^3/UL (140-415); RED BLOOD COUNT 4.64 10^6/ul (4.70-6.10); RED CELL DISTRIBUTION WIDTH 14.3 % (11.5-14.5)
[2018-06-18 12:26] LABS: WHITE BLOOD COUNT 6.3 10^3/ul (4.8-10.8)
[2018-06-18 12:55] LABS: ANION GAP 12 (8-16); BLOOD UREA NITROGEN 77 mg/dl (7-20); CALCIUM 9.3 mg/dl (8.4-10.2); CARBON DIOXIDE 28 mmol/L (21-31); CHLORIDE 105 mmol/L (97-110); CREATININE 1.28 mg/dl (0.61-1.24); GLUCOSE 189 mg/dl (70-220); POTASSIUM 4.8 mmol/L (3.5-5.1); SODIUM 140 mmol/L (135-144)
[2018-06-18] MEDS: METHYLNALTREXONE 12 MG/0.6 ML VIAL SC (13:08)
[2018-06-18] MEDS: POLYETHYLENE GLYCOL 17 GM PACKET PO ×2 (13:08→20:39)
[2018-06-18] MEDS: ATORVASTATIN 20 MG TAB PO (20:40)
[2018-06-18] MEDS: INSULIN DETEMIR [LEVEMIR] (100 UNITS/ML) SYG SC (20:47)
[2018-06-19] MEDS: ACCU-CHEK XX ×5 (02:00→21:00)
[2018-06-19] MEDS: HYDROmorphONE 0.5 MG/0.5 ML SYG IV ×5 (02:31→22:39)
[2018-06-19 08:45] LABS: ADD MAN DIFF? NO
[2018-06-19] MEDS: METOPROLOL 25 MG TAB PO ×2 (08:48→22:22)
[2018-06-19] MEDS: FERROUS SULFATE (EC) 325 MG TAB PO (08:48)
[2018-06-19] MEDS: LISINOPRIL 20 MG TAB PO ×2 (08:48→22:22)
[2018-06-19] MEDS: EMPAGLIFLOZIN 10 MG TABLET PO (08:48)
[2018-06-19] MEDS: METHYLNALTREXONE 12 MG/0.6 ML VIAL SC (08:48)
[2018-06-19] MEDS: BUMETANIDE 1 MG TAB PO (08:48)
[2018-06-19] MEDS: FAMOTIDINE 20 MG TAB PO ×2 (08:48→22:23)
[2018-06-19] MEDS: MULTIVITAMINS THERAPEUTIC TAB PO (08:48)
[2018-06-19] MEDS: ASCORBIC ACID 500 MG TAB PO (08:48)
[2018-06-19] MEDS: metFORMIN 500 MG TAB PO ×2 (08:48→17:52)
[2018-06-19] MEDS: FLUTICASONE/VILANTEROL 100-25 INH (08:49)
[2018-06-19] MEDS: GABAPENTIN 100 MG CAP PO ×3 (08:49→22:23)
[2018-06-19] MEDS: APIXABAN 5 MG TABLET PO ×2 (08:49→22:22)
[2018-06-19] MEDS: ISOSORBIDE DINITRATE 10 MG TAB PO ×3 (08:49→22:23)
[2018-06-19] MEDS: DULOXETINE 30 MG CAP DR PO (08:49)
[2018-06-19] MEDS: LINAGLIPTIN 5 MG TABLET PO (08:49)
[2018-06-19 08:52] LABS: BASOPHIL # 0.1 10^3/ul (0.0-0.1); BASOPHILS % 0.8 % (0.0-2.0); EOSINOPHILS # 0.3 10^3/ul (0.0-0.5); EOSINOPHILS % 4.9 % (0.0-7.0); HEMATOCRIT 37.4 % (42.0-52.0); HEMOGLOBIN 11.5 g/dl (14.0-18.0); LYMPHOCYTES # 1.5 10^3/ul (0.8-2.9); LYMPHOCYTES % 23.5 % (15.0-51.0); MEAN CORPUSCULAR HEMOGLOBIN 25.2 pg (29.0-33.0); MEAN CORPUSCULAR HGB CONC 30.7 g/dl (32.0-37.0); MEAN PLATELET VOLUME 10.7 fl (7.4-10.4); MONOCYTE # 0.7 10^3/ul (0.3-0.9); MONOCYTES % 10.5 % (0.0-11.0); NEUTROPHIL # 3.9 10^3/ul (1.6-7.5); NEUTROPHILS % 59.7 % (39.0-77.0); PLATELET COUNT 176 10^3/UL (140-415); RED BLOOD COUNT 4.56 10^6/ul (4.70-6.10); RED CELL DISTRIBUTION WIDTH 14.7 % (11.5-14.5)
[2018-06-19 08:52] LABS: WHITE BLOOD COUNT 6.6 10^3/ul (4.8-10.8)
[2018-06-19] MEDS: INSULIN ASPART [NOVOLOG] 3 ML PEN SC ×7 (08:53→22:29)
[2018-06-19] MEDS: POLYETHYLENE GLYCOL 17 GM PACKET PO ×2 (08:58→22:30)
[2018-06-19] MEDS: COLLAGENASE 5 GM (UD JAR) TOP (09:00)
[2018-06-19 09:04] LABS: ANION GAP 12 (8-16); BLOOD UREA NITROGEN 81 mg/dl (7-20); CALCIUM 9.4 mg/dl (8.4-10.2); CARBON DIOXIDE 32 mmol/L (21-31); CHLORIDE 104 mmol/L (97-110); CREATININE 1.42 mg/dl (0.61-1.24); GLUCOSE 185 mg/dl (70-220); POTASSIUM 4.8 mmol/L (3.5-5.1); SODIUM 143 mmol/L (135-144)
[2018-06-19 09:12] LABS: MAGNESIUM 2.4 mg/dl (1.7-2.5)
[2018-06-19 09:12] LABS: PHOSPHORUS 4.7 mg/dl (2.5-4.9)
[2018-06-19] MEDS: ALPRAZOLAM 0.25 MG TAB PO (10:51)
[2018-06-19] MEDS: SOD CHLORIDE 0.9% 500 ML IV (17:54)
[2018-06-19] MEDS: ATORVASTATIN 20 MG TAB PO (22:21)
[2018-06-19] MEDS: INSULIN DETEMIR [LEVEMIR] (100 UNITS/ML) SYG SC (22:29)
[2018-06-20] MEDS: ACCU-CHEK XX ×5 (02:00→20:54)
[2018-06-20] MEDS: HYDROmorphONE 0.5 MG/0.5 ML SYG IV ×5 (04:38→21:33)
[2018-06-20] MEDS: FLUTICASONE/VILANTEROL 100-25 INH (08:19)
[2018-06-20] MEDS: LINAGLIPTIN 5 MG TABLET PO (08:19)
[2018-06-20] MEDS: GABAPENTIN 100 MG CAP PO ×3 (08:19→20:47)
[2018-06-20] MEDS: COLLAGENASE 5 GM (UD JAR) TOP (08:19)
[2018-06-20] MEDS: POLYETHYLENE GLYCOL 17 GM PACKET PO ×3 (08:19→20:54)
[2018-06-20] MEDS: ASCORBIC ACID 500 MG TAB PO (08:19)
[2018-06-20] MEDS: METHYLNALTREXONE 12 MG/0.6 ML VIAL SC ×2 (08:19→09:00)
[2018-06-20] MEDS: METOPROLOL 25 MG TAB PO ×2 (08:20→20:48)
[2018-06-20] MEDS: ISOSORBIDE DINITRATE 10 MG TAB PO ×3 (08:20→20:47)
[2018-06-20] MEDS: INSULIN ASPART [NOVOLOG] 3 ML PEN SC ×7 (08:20→20:53)
[2018-06-20] MEDS: APIXABAN 5 MG TABLET PO ×2 (08:21→20:46)
[2018-06-20] MEDS: EMPAGLIFLOZIN 10 MG TABLET PO (08:21)
[2018-06-20] MEDS: MULTIVITAMINS THERAPEUTIC TAB PO (08:21)
[2018-06-20] MEDS: DULOXETINE 30 MG CAP DR PO (08:21)
[2018-06-20] MEDS: FERROUS SULFATE (EC) 325 MG TAB PO (08:21)
[2018-06-20 08:59] LABS: ANION GAP 13 (8-16); BLOOD UREA NITROGEN 73 mg/dl (7-20); CALCIUM 9.3 mg/dl (8.4-10.2); CARBON DIOXIDE 30 mmol/L (21-31); CHLORIDE 105 mmol/L (97-110); CREATININE 1.43 mg/dl (0.61-1.24); GLUCOSE 190 mg/dl (70-220); POTASSIUM 4.8 mmol/L (3.5-5.1); SODIUM 143 mmol/L (135-144)
[2018-06-20] MEDS: FAMOTIDINE 20 MG TAB PO ×2 (09:10→20:47)
[2018-06-20] MEDS ORDERED: COLLAGENASE 5 GM (UD JAR) TOP (16:00)
[2018-06-20] MEDS: ATORVASTATIN 20 MG TAB PO (20:46)
[2018-06-20] MEDS: INSULIN DETEMIR [LEVEMIR] (100 UNITS/ML) SYG SC (20:53)
[2018-06-21] MEDS: HYDROmorphONE 0.5 MG/0.5 ML SYG IV ×6 (01:47→22:07)
[2018-06-21] MEDS: ACCU-CHEK XX ×5 (02:00→21:42)
[2018-06-21] MEDS: COLLAGENASE 5 GM (UD JAR) TOP (08:21)
[2018-06-21] MEDS: INSULIN ASPART [NOVOLOG] 3 ML PEN SC ×7 (08:32→20:49)
[2018-06-21] MEDS: DULOXETINE 30 MG CAP DR PO (08:33)
[2018-06-21] MEDS: POLYETHYLENE GLYCOL 17 GM PACKET PO ×2 (08:33→20:55)
[2018-06-21] MEDS: FAMOTIDINE 20 MG TAB PO ×2 (08:34→20:54)
[2018-06-21] MEDS: ASCORBIC ACID 500 MG TAB PO (08:34)
[2018-06-21] MEDS: MULTIVITAMINS THERAPEUTIC TAB PO (08:34)
[2018-06-21] MEDS: APIXABAN 5 MG TABLET PO ×2 (08:34→20:54)
[2018-06-21] MEDS: FERROUS SULFATE (EC) 325 MG TAB PO (08:34)
[2018-06-21] MEDS: LINAGLIPTIN 5 MG TABLET PO (08:34)
[2018-06-21] MEDS: EMPAGLIFLOZIN 10 MG TABLET PO (08:34)
[2018-06-21] MEDS: GABAPENTIN 100 MG CAP PO ×2 (08:35→12:32)
[2018-06-21] MEDS: ISOSORBIDE DINITRATE 10 MG TAB PO ×3 (08:35→20:54)
[2018-06-21] MEDS: METHYLNALTREXONE 12 MG/0.6 ML VIAL SC (08:35)
[2018-06-21] MEDS: METOPROLOL 25 MG TAB PO ×2 (08:35→21:00)
[2018-06-21 09:20] LABS: ADD MAN DIFF? NO
[2018-06-21 09:22] LABS: WHITE BLOOD COUNT 5.9 10^3/ul (4.8-10.8)
[2018-06-21 09:22] LABS: BASOPHILS % 0.7 % (0.0-2.0); EOSINOPHILS # 0.3 10^3/ul (0.0-0.5); EOSINOPHILS % 4.9 % (0.0-7.0); HEMATOCRIT 34.9 % (42.0-52.0); HEMOGLOBIN 10.9 g/dl (14.0-18.0); LYMPHOCYTES # 1.5 10^3/ul (0.8-2.9); LYMPHOCYTES % 25.7 % (15.0-51.0); MEAN CORPUSCULAR HEMOGLOBIN 25.8 pg (29.0-33.0); MEAN CORPUSCULAR HGB CONC 31.2 g/dl (32.0-37.0); MEAN CORPUSCULAR VOLUME 82.7 fl (82.0-101.0); MEAN PLATELET VOLUME 11.5 fl (7.4-10.4); MONOCYTE # 0.7 10^3/ul (0.3-0.9); MONOCYTES % 11.9 % (0.0-11.0); NEUTROPHIL # 3.3 10^3/ul (1.6-7.5); NEUTROPHILS % 55.8 % (39.0-77.0); PLATELET COUNT 164 10^3/UL (140-415); RED BLOOD COUNT 4.22 10^6/ul (4.70-6.10); RED CELL DISTRIBUTION WIDTH 14.5 % (11.5-14.5)
[2018-06-21 10:06] LABS: MAGNESIUM 2.5 mg/dl (1.7-2.5)
[2018-06-21 10:09] LABS: ALANINE AMINOTRANSFERASE 45 IU/L (13-69); ALBUMIN 3.6 g/dl (3.3-4.9); ALBUMIN/GLOBULIN RATIO 0.85; ALKALINE PHOSPHATASE 181 IU/L (42-121); ANION GAP 11 (8-16); ASPARTATE AMINO TRANSFERASE 45 IU/L (15-46); BILIRUBIN,INDIRECT 0.4 mg/dl (0-1.1); BILIRUBIN,TOTAL 0.4 mg/dl (0.2-1.3); BLOOD UREA NITROGEN 68 mg/dl (7-20); CALCIUM 8.9 mg/dl (8.4-10.2); CARBON DIOXIDE 28 mmol/L (21-31); CHLORIDE 109 mmol/L (97-110); CREATININE 1.14 mg/dl (0.61-1.24); GLUCOSE 148 mg/dl (70-220); POTASSIUM 4.8 mmol/L (3.5-5.1); SODIUM 143 mmol/L (135-144); TOTAL PROTEIN 7.8 g/dl (6.1-8.1)
[2018-06-21] MEDS: FLUTICASONE/VILANTEROL 100-25 INH (10:11)
[2018-06-21] MEDS: LACTULOSE 30ML CUP PO (14:13)
[2018-06-21] MEDS: INSULIN DETEMIR [LEVEMIR] (100 UNITS/ML) SYG SC (20:53)
[2018-06-21] MEDS: ATORVASTATIN 40 MG TAB PO (20:54)
[2018-06-21] MEDS: GABAPENTIN 300 MG CAP PO (20:54)
[2018-06-22] MEDS: ACCU-CHEK XX ×5 (02:00→21:00)
[2018-06-22] MEDS: HYDROmorphONE 0.5 MG/0.5 ML SYG IV ×4 (02:00→22:12)
[2018-06-22] MEDS: INSULIN ASPART [NOVOLOG] 3 ML PEN SC ×7 (08:00→22:11)
[2018-06-22] MEDS: POLYETHYLENE GLYCOL 17 GM PACKET PO ×3 (09:00→22:07)
[2018-06-22] MEDS: FLUTICASONE/VILANTEROL 100-25 INH (09:00)
[2018-06-22] MEDS: EMPAGLIFLOZIN 10 MG TABLET PO (09:40)
[2018-06-22] MEDS: LINAGLIPTIN 5 MG TABLET PO (09:40)
[2018-06-22] MEDS: APIXABAN 5 MG TABLET PO ×2 (09:40→22:07)
[2018-06-22] MEDS: METOPROLOL 25 MG TAB PO ×2 (09:44→22:07)
[2018-06-22] MEDS: ISOSORBIDE DINITRATE 10 MG TAB PO ×3 (09:45→22:07)
[2018-06-22] MEDS: METHYLNALTREXONE 12 MG/0.6 ML VIAL SC (09:53)
[2018-06-22] MEDS: FERROUS SULFATE (EC) 325 MG TAB PO (09:53)
[2018-06-22] MEDS: MULTIVITAMINS THERAPEUTIC TAB PO (09:54)
[2018-06-22] MEDS: GABAPENTIN 300 MG CAP PO ×3 (09:54→22:12)
[2018-06-22] MEDS: FAMOTIDINE 20 MG TAB PO ×2 (09:54→22:08)
[2018-06-22] MEDS: ASCORBIC ACID 500 MG TAB PO (09:54)
[2018-06-22] MEDS: COLLAGENASE 5 GM (UD JAR) TOP (10:01)
[2018-06-22] MEDS: DULOXETINE 30 MG CAP DR PO (10:05)
[2018-06-22] MEDS: ALPRAZOLAM 0.25 MG TAB PO (12:08)
[2018-06-22] MEDS: MAGNESIUM CITRATE 300 ML BTL PO (16:09)
[2018-06-22 17:11] LABS: IRON 61 ug/dl (35-150)
[2018-06-22 17:22] LABS: % IRON SATURATION 19 % SAT (22-52); TOTAL IRON BINDING CAPACITY 323 ug/dl (241-421)
[2018-06-22] MEDS: INSULIN DETEMIR [LEVEMIR] (100 UNITS/ML) SYG SC (22:09)
[2018-06-22] MEDS: ATORVASTATIN 40 MG TAB PO (22:12)
[2018-06-23] MEDS: ALPRAZOLAM 0.25 MG TAB PO ×2 (00:51→16:51)
[2018-06-23] MEDS: ACCU-CHEK XX ×5 (02:00→20:35)
[2018-06-23] MEDS: HYDROmorphONE 0.5 MG/0.5 ML SYG IV ×4 (05:12→19:10)
[2018-06-23 06:55] LABS: ADD MAN DIFF? NO
[2018-06-23 07:05] LABS: BASOPHILS % 0.5 % (0.0-2.0); EOSINOPHILS # 0.3 10^3/ul (0.0-0.5); EOSINOPHILS % 4.6 % (0.0-7.0); HEMATOCRIT 36.1 % (42.0-52.0); HEMOGLOBIN 11.1 g/dl (14.0-18.0); LYMPHOCYTES % 16.3 % (15.0-51.0); MEAN CORPUSCULAR HEMOGLOBIN 25.8 pg (29.0-33.0); MEAN CORPUSCULAR HGB CONC 30.7 g/dl (32.0-37.0); MONOCYTE # 0.6 10^3/ul (0.3-0.9); NEUTROPHIL # 3.9 10^3/ul (1.6-7.5); NEUTROPHILS % 67.7 % (39.0-77.0); PLATELET COUNT 163 10^3/UL (140-415); RED CELL DISTRIBUTION WIDTH 14.7 % (11.5-14.5)
[2018-06-23 07:05] LABS: WHITE BLOOD COUNT 5.8 10^3/ul (4.8-10.8)
[2018-06-23 07:26] LABS: MAGNESIUM 2.9 mg/dl (1.7-2.5)
[2018-06-23 07:26] LABS: PHOSPHORUS 3.9 mg/dl (2.5-4.9)
[2018-06-23 07:35] LABS: ALANINE AMINOTRANSFERASE 50 IU/L (13-69); ALBUMIN 3.7 g/dl (3.3-4.9); ALKALINE PHOSPHATASE 203 IU/L (42-121); ANION GAP 11 (8-16); ASPARTATE AMINO TRANSFERASE 42 IU/L (15-46); BILIRUBIN,INDIRECT 0.6 mg/dl (0-1.1); BILIRUBIN,TOTAL 0.6 mg/dl (0.2-1.3); BLOOD UREA NITROGEN 53 mg/dl (7-20); CARBON DIOXIDE 30 mmol/L (21-31); CHLORIDE 108 mmol/L (97-110); CREATININE 1.05 mg/dl (0.61-1.24); GLUCOSE 118 mg/dl (70-220); SODIUM 144 mmol/L (135-144); TOTAL PROTEIN 8.3 g/dl (6.1-8.1)
[2018-06-23] MEDS: INSULIN ASPART [NOVOLOG] 3 ML PEN SC ×7 (08:45→20:35)
[2018-06-23] MEDS: DULOXETINE 30 MG CAP DR PO (08:47)
[2018-06-23] MEDS: GABAPENTIN 300 MG CAP PO ×3 (08:47→20:25)
[2018-06-23] MEDS: EMPAGLIFLOZIN 10 MG TABLET PO (08:47)
[2018-06-23] MEDS: ISOSORBIDE DINITRATE 10 MG TAB PO ×3 (08:48→20:25)
[2018-06-23] MEDS: LINAGLIPTIN 5 MG TABLET PO (08:49)
[2018-06-23] MEDS: APIXABAN 5 MG TABLET PO ×2 (08:49→20:26)
[2018-06-23] MEDS: METOPROLOL 25 MG TAB PO ×2 (08:49→20:25)
[2018-06-23] MEDS: FAMOTIDINE 20 MG TAB PO ×2 (08:54→20:26)
[2018-06-23] MEDS: FLUTICASONE/VILANTEROL 100-25 INH (08:54)
[2018-06-23] MEDS: MULTIVITAMINS THERAPEUTIC TAB PO ×2 (08:54→09:34)
[2018-06-23] MEDS: METHYLNALTREXONE 12 MG/0.6 ML VIAL SC (09:35)
[2018-06-23] MEDS: POLYETHYLENE GLYCOL 17 GM PACKET PO ×2 (09:38→21:00)
[2018-06-23] MEDS: COLLAGENASE 5 GM (UD JAR) TOP (11:18)
[2018-06-23] MEDS: SOD FERRIC GLUC COMPLX 125 MG in SOD CHLORIDE 0.9% 100 ML IVPB (18:46)
[2018-06-23] MEDS: ATORVASTATIN 40 MG TAB PO (20:25)
[2018-06-23] MEDS: INSULIN DETEMIR [LEVEMIR] (100 UNITS/ML) SYG SC (20:34)
[2018-06-24] MEDS: ACCU-CHEK XX ×5 (02:00→20:20)
[2018-06-24] MEDS: HYDROmorphONE 0.5 MG/0.5 ML SYG IV ×5 (03:22→20:56)
[2018-06-24] MEDS: ALPRAZOLAM 0.25 MG TAB PO ×2 (05:01→12:31)
[2018-06-24] MEDS: POLYETHYLENE GLYCOL 17 GM PACKET PO ×2 (08:31→20:15)
[2018-06-24] MEDS: FLUTICASONE/VILANTEROL 100-25 INH (08:31)
[2018-06-24] MEDS: METHYLNALTREXONE 12 MG/0.6 ML VIAL SC (08:31)
[2018-06-24] MEDS: BUMETANIDE 0.5 MG TAB PO (08:34)
[2018-06-24] MEDS: EMPAGLIFLOZIN 10 MG TABLET PO (08:34)
[2018-06-24] MEDS: ISOSORBIDE DINITRATE 10 MG TAB PO ×3 (08:34→20:14)
[2018-06-24] MEDS: DULOXETINE 30 MG CAP DR PO (08:34)
[2018-06-24] MEDS: APIXABAN 5 MG TABLET PO ×2 (08:35→20:14)
[2018-06-24] MEDS: FAMOTIDINE 20 MG TAB PO ×2 (08:35→20:14)
[2018-06-24] MEDS: LINAGLIPTIN 5 MG TABLET PO (08:35)
[2018-06-24] MEDS: GABAPENTIN 300 MG CAP PO ×3 (08:35→20:14)
[2018-06-24] MEDS: MULTIVITAMINS THERAPEUTIC TAB PO (08:35)
[2018-06-24] MEDS: COLLAGENASE 5 GM (UD JAR) TOP (08:36)
[2018-06-24] MEDS: METOPROLOL 25 MG TAB PO ×2 (08:36→20:15)
[2018-06-24] MEDS: INSULIN ASPART [NOVOLOG] 3 ML PEN SC ×7 (08:39→20:20)
[2018-06-24] MEDS: SOD FERRIC GLUC COMPLX 125 MG in SOD CHLORIDE 0.9% 100 ML IVPB (16:01)
[2018-06-24] MEDS: ATORVASTATIN 40 MG TAB PO (20:14)
[2018-06-24] MEDS: INSULIN DETEMIR [LEVEMIR] (100 UNITS/ML) SYG SC (20:19)
[2018-06-25] MEDS: ACCU-CHEK XX ×5 (02:00→20:40)
[2018-06-25] MEDS: HYDROmorphONE 0.5 MG/0.5 ML SYG IV ×5 (06:08→22:44)
[2018-06-25 07:25] LABS: MAGNESIUM 2.9 mg/dl (1.7-2.5)
[2018-06-25] MEDS: INSULIN ASPART [NOVOLOG] 3 ML PEN SC ×7 (08:38→20:40)
[2018-06-25] MEDS: APIXABAN 5 MG TABLET PO ×2 (08:40→20:34)
[2018-06-25] MEDS: DULOXETINE 30 MG CAP DR PO (08:40)
[2018-06-25] MEDS: ISOSORBIDE DINITRATE 10 MG TAB PO ×3 (08:41→20:34)
[2018-06-25] MEDS: LINAGLIPTIN 5 MG TABLET PO (08:41)
[2018-06-25] MEDS: METOPROLOL 25 MG TAB PO ×2 (08:41→20:40)
[2018-06-25] MEDS: POLYETHYLENE GLYCOL 17 GM PACKET PO ×2 (08:49→20:33)
[2018-06-25] MEDS: FAMOTIDINE 20 MG TAB PO ×2 (08:52→20:34)
[2018-06-25] MEDS: MULTIVITAMINS THERAPEUTIC TAB PO (08:52)
[2018-06-25] MEDS: METHYLNALTREXONE 12 MG/0.6 ML VIAL SC (08:52)
[2018-06-25] MEDS: GABAPENTIN 300 MG CAP PO ×3 (08:52→20:34)
[2018-06-25] MEDS: FLUTICASONE/VILANTEROL 100-25 INH ×2 (08:54→12:00)
[2018-06-25] MEDS: EMPAGLIFLOZIN 10 MG TABLET PO (08:58)
[2018-06-25] MEDS: COLLAGENASE 5 GM (UD JAR) TOP (09:02)
[2018-06-25] MEDS: BUMETANIDE 0.5 MG TAB PO (10:27)
[2018-06-25] MEDS: SOD FERRIC GLUC COMPLX 125 MG in SOD CHLORIDE 0.9% 100 ML IVPB (17:24)
[2018-06-25] MEDS: ATORVASTATIN 40 MG TAB PO (20:34)
[2018-06-25] MEDS: INSULIN DETEMIR [LEVEMIR] (100 UNITS/ML) SYG SC (20:36)
[2018-06-26] MEDS: ACCU-CHEK XX ×5 (01:46→20:49)
[2018-06-26] MEDS: HYDROmorphONE 0.5 MG/0.5 ML SYG IV ×3 (04:39→21:08)
[2018-06-26] MEDS: FLUTICASONE/VILANTEROL 100-25 INH (08:41)
[2018-06-26] MEDS: INSULIN ASPART [NOVOLOG] 3 ML PEN SC ×7 (08:41→20:49)
[2018-06-26] MEDS: EMPAGLIFLOZIN 10 MG TABLET PO (08:42)
[2018-06-26] MEDS: APIXABAN 5 MG TABLET PO ×2 (08:42→20:38)
[2018-06-26] MEDS: MULTIVITAMINS THERAPEUTIC TAB PO (08:42)
[2018-06-26] MEDS: BUMETANIDE 0.5 MG TAB PO (08:43)
[2018-06-26] MEDS: ISOSORBIDE DINITRATE 10 MG TAB PO ×3 (08:43→20:39)
[2018-06-26] MEDS: FAMOTIDINE 20 MG TAB PO ×2 (08:43→20:38)
[2018-06-26] MEDS: METOPROLOL 25 MG TAB PO ×2 (08:43→20:39)
[2018-06-26] MEDS: GABAPENTIN 300 MG CAP PO ×3 (08:43→20:38)
[2018-06-26] MEDS: DULOXETINE 30 MG CAP DR PO (08:43)
[2018-06-26] MEDS: METHYLNALTREXONE 12 MG/0.6 ML VIAL SC (08:44)
[2018-06-26] MEDS: LINAGLIPTIN 5 MG TABLET PO (08:44)
[2018-06-26] MEDS: POLYETHYLENE GLYCOL 17 GM PACKET PO ×2 (08:44→20:39)
[2018-06-26] MEDS: COLLAGENASE 5 GM (UD JAR) TOP (08:44)
[2018-06-26] MEDS: ATORVASTATIN 40 MG TAB PO (20:38)
[2018-06-26] MEDS: INSULIN DETEMIR [LEVEMIR] (100 UNITS/ML) SYG SC (20:44)
[2018-06-27] MEDS: ACCU-CHEK XX ×5 (00:06→20:43)
[2018-06-27] MEDS: HYDROmorphONE 0.5 MG/0.5 ML SYG IV ×5 (01:56→18:12)
[2018-06-27] MEDS: ALPRAZOLAM 0.25 MG TAB PO (05:40)
[2018-06-27 06:01] LABS: ADD MAN DIFF? NO
[2018-06-27 06:04] LABS: BASOPHILS % 0.3 % (0.0-2.0); EOSINOPHILS # 0.3 10^3/ul (0.0-0.5); EOSINOPHILS % 5.3 % (0.0-7.0); HEMATOCRIT 38.2 % (42.0-52.0); HEMOGLOBIN 11.5 g/dl (14.0-18.0); LYMPHOCYTES # 1.1 10^3/ul (0.8-2.9); LYMPHOCYTES % 17.5 % (15.0-51.0); MEAN CORPUSCULAR HEMOGLOBIN 25.2 pg (29.0-33.0); MEAN CORPUSCULAR HGB CONC 30.1 g/dl (32.0-37.0); MEAN CORPUSCULAR VOLUME 83.6 fl (82.0-101.0); MEAN PLATELET VOLUME 10.5 fl (7.4-10.4); MONOCYTE # 0.6 10^3/ul (0.3-0.9); MONOCYTES % 10.5 % (0.0-11.0); NEUTROPHILS % 65.4 % (39.0-77.0); PLATELET COUNT 179 10^3/UL (140-415); RED BLOOD COUNT 4.57 10^6/ul (4.70-6.10); RED CELL DISTRIBUTION WIDTH 15.6 % (11.5-14.5)
[2018-06-27 06:04] LABS: WHITE BLOOD COUNT 6.1 10^3/ul (4.8-10.8)
[2018-06-27 07:06] LABS: ANION GAP 12 (8-16); BLOOD UREA NITROGEN 49 mg/dl (7-20); CALCIUM 9.5 mg/dl (8.4-10.2); CARBON DIOXIDE 28 mmol/L (21-31); CHLORIDE 107 mmol/L (97-110); CREATININE 1.12 mg/dl (0.61-1.24); GLUCOSE 169 mg/dl (70-220); POTASSIUM 5.3 mmol/L (3.5-5.1); SODIUM 142 mmol/L (135-144)
[2018-06-27] MEDS: INSULIN ASPART [NOVOLOG] 3 ML PEN SC ×7 (08:00→20:40)
[2018-06-27] MEDS: COLLAGENASE 5 GM (UD JAR) TOP (08:49)
[2018-06-27] MEDS: APIXABAN 5 MG TABLET PO ×2 (08:49→20:36)
[2018-06-27] MEDS: BUMETANIDE 0.5 MG TAB PO (08:49)
[2018-06-27] MEDS: EMPAGLIFLOZIN 10 MG TABLET PO (08:49)
[2018-06-27] MEDS: FAMOTIDINE 20 MG TAB PO ×2 (08:49→20:36)
[2018-06-27] MEDS: ISOSORBIDE DINITRATE 10 MG TAB PO ×3 (08:49→20:37)
[2018-06-27] MEDS: GABAPENTIN 300 MG CAP PO ×3 (08:49→20:35)
[2018-06-27] MEDS: LINAGLIPTIN 5 MG TABLET PO (08:49)
[2018-06-27] MEDS: DULOXETINE 30 MG CAP DR PO (08:49)
[2018-06-27] MEDS: METOPROLOL 25 MG TAB PO ×2 (08:50→20:37)
[2018-06-27] MEDS: METHYLNALTREXONE 12 MG/0.6 ML VIAL SC (08:50)
[2018-06-27] MEDS: MULTIVITAMINS THERAPEUTIC TAB PO (08:50)
[2018-06-27] MEDS: FLUTICASONE/VILANTEROL 100-25 INH (08:51)
[2018-06-27] MEDS: POLYETHYLENE GLYCOL 17 GM PACKET PO ×2 (08:51→20:35)
[2018-06-27] MEDS: NA POLYST SULFON 15 GM/60 ML BTL PO (17:17)
[2018-06-27] MEDS: ATORVASTATIN 40 MG TAB PO (20:36)
[2018-06-27] MEDS: INSULIN DETEMIR [LEVEMIR] (100 UNITS/ML) SYG SC (20:41)
[2018-06-28] MEDS: ACCU-CHEK XX ×5 (02:00→20:28)
[2018-06-28] MEDS: HYDROmorphONE 0.5 MG/0.5 ML SYG IV ×5 (03:48→19:55)
[2018-06-28] MEDS: APIXABAN 5 MG TABLET PO ×2 (08:38→20:17)
[2018-06-28] MEDS: BUMETANIDE 0.5 MG TAB PO (08:38)
[2018-06-28] MEDS: EMPAGLIFLOZIN 10 MG TABLET PO (08:39)
[2018-06-28] MEDS: LINAGLIPTIN 5 MG TABLET PO (08:39)
[2018-06-28] MEDS: ISOSORBIDE DINITRATE 10 MG TAB PO ×3 (08:44→20:17)
[2018-06-28] MEDS: METOPROLOL 25 MG TAB PO ×2 (08:44→20:18)
[2018-06-28] MEDS: INSULIN ASPART [NOVOLOG] 3 ML PEN SC ×7 (08:48→20:25)
[2018-06-28] MEDS: POLYETHYLENE GLYCOL 17 GM PACKET PO ×2 (09:00→20:21)
[2018-06-28] MEDS: DULOXETINE 30 MG CAP DR PO (09:23)
[2018-06-28] MEDS: METHYLNALTREXONE 12 MG/0.6 ML VIAL SC (09:23)
[2018-06-28] MEDS: FAMOTIDINE 20 MG TAB PO ×2 (09:23→20:17)
[2018-06-28] MEDS: MULTIVITAMINS THERAPEUTIC TAB PO (09:23)
[2018-06-28] MEDS: GABAPENTIN 300 MG CAP PO ×3 (09:23→20:17)
[2018-06-28] MEDS: COLLAGENASE 5 GM (UD JAR) TOP (09:24)
[2018-06-28] MEDS: FLUTICASONE/VILANTEROL 100-25 INH (10:37)
[2018-06-28] MEDS: ATORVASTATIN 40 MG TAB PO (20:17)
[2018-06-28] MEDS: INSULIN DETEMIR [LEVEMIR] (100 UNITS/ML) SYG SC (20:24)
[2018-06-28] MEDS: ALPRAZOLAM 0.25 MG TAB PO (22:15)
[2018-06-29] MEDS: HYDROmorphONE 0.5 MG/0.5 ML SYG IV ×6 (00:21→21:32)
[2018-06-29] MEDS: ACCU-CHEK XX ×5 (02:00→20:41)
[2018-06-29 06:44] LABS: ADD MAN DIFF? NO
[2018-06-29 06:50] LABS: BASOPHILS % 0.6 % (0.0-2.0); EOSINOPHILS # 0.4 10^3/ul (0.0-0.5); EOSINOPHILS % 5.6 % (0.0-7.0); HEMATOCRIT 38.3 % (42.0-52.0); HEMOGLOBIN 11.7 g/dl (14.0-18.0); LYMPHOCYTES # 1.3 10^3/ul (0.8-2.9); LYMPHOCYTES % 19.8 % (15.0-51.0); MEAN CORPUSCULAR HEMOGLOBIN 25.8 pg (29.0-33.0); MEAN CORPUSCULAR HGB CONC 30.5 g/dl (32.0-37.0); MEAN CORPUSCULAR VOLUME 84.5 fl (82.0-101.0); MEAN PLATELET VOLUME 10.7 fl (7.4-10.4); MONOCYTE # 0.8 10^3/ul (0.3-0.9); MONOCYTES % 12.1 % (0.0-11.0); NEUTROPHILS % 61.3 % (39.0-77.0); PLATELET COUNT 152 10^3/UL (140-415); RED BLOOD COUNT 4.53 10^6/ul (4.70-6.10); RED CELL DISTRIBUTION WIDTH 15.7 % (11.5-14.5)
[2018-06-29 06:50] LABS: WHITE BLOOD COUNT 6.6 10^3/ul (4.8-10.8)
[2018-06-29 07:08] LABS: ANION GAP 11 (8-16); BLOOD UREA NITROGEN 60 mg/dl (7-20); CALCIUM 9.1 mg/dl (8.4-10.2); CARBON DIOXIDE 31 mmol/L (21-31); CHLORIDE 105 mmol/L (97-110); CREATININE 1.21 mg/dl (0.61-1.24); GLUCOSE 206 mg/dl (70-220); POTASSIUM 4.8 mmol/L (3.5-5.1); SODIUM 142 mmol/L (135-144)
[2018-06-29] MEDS: AL HYDROX/MG HYDROX/SIMETH 30 ML CUP PO (07:39)
[2018-06-29] MEDS: EMPAGLIFLOZIN 10 MG TABLET PO (07:40)
[2018-06-29] MEDS: INSULIN ASPART [NOVOLOG] 3 ML PEN SC ×7 (07:42→20:30)
[2018-06-29] MEDS: FAMOTIDINE 20 MG TAB PO ×2 (08:39→20:28)
[2018-06-29] MEDS: LINAGLIPTIN 5 MG TABLET PO (08:39)
[2018-06-29] MEDS: POLYETHYLENE GLYCOL 17 GM PACKET PO ×2 (08:39→20:29)
[2018-06-29] MEDS: APIXABAN 5 MG TABLET PO ×2 (08:39→20:28)
[2018-06-29] MEDS: DULOXETINE 30 MG CAP DR PO (08:39)
[2018-06-29] MEDS: MULTIVITAMINS THERAPEUTIC TAB PO (08:39)
[2018-06-29] MEDS: GABAPENTIN 300 MG CAP PO ×3 (08:39→20:28)
[2018-06-29] MEDS: METOPROLOL 25 MG TAB PO ×2 (08:40→20:28)
[2018-06-29] MEDS: BUMETANIDE 0.5 MG TAB PO (08:40)
[2018-06-29] MEDS: ISOSORBIDE DINITRATE 10 MG TAB PO ×3 (08:40→20:28)
[2018-06-29] MEDS: FLUTICASONE/VILANTEROL 100-25 INH (08:41)
[2018-06-29] MEDS: COLLAGENASE 5 GM (UD JAR) TOP (08:41)
[2018-06-29] MEDS: METHYLNALTREXONE 12 MG/0.6 ML VIAL SC (08:41)
[2018-06-29] MEDS: ALPRAZOLAM 0.25 MG TAB PO (13:48)
[2018-06-29] MEDS: ATORVASTATIN 40 MG TAB PO (20:28)
[2018-06-29] MEDS: INSULIN DETEMIR [LEVEMIR] (100 UNITS/ML) SYG SC (20:29)
[2018-06-30] MEDS: ACCU-CHEK XX ×5 (02:00→21:00)
[2018-06-30] MEDS: HYDROmorphONE 0.5 MG/0.5 ML SYG IV ×6 (02:25→23:37)
[2018-06-30] MEDS: EMPAGLIFLOZIN 10 MG TABLET PO (07:52)
[2018-06-30] MEDS: INSULIN ASPART [NOVOLOG] 3 ML PEN SC ×7 (07:53→20:10)
[2018-06-30] MEDS: APIXABAN 5 MG TABLET PO ×2 (08:00→20:03)
[2018-06-30] MEDS: METHYLNALTREXONE 12 MG/0.6 ML VIAL SC (08:00)
[2018-06-30] MEDS: FAMOTIDINE 20 MG TAB PO ×2 (08:01→20:05)
[2018-06-30] MEDS: LINAGLIPTIN 5 MG TABLET PO (08:01)
[2018-06-30] MEDS: POLYETHYLENE GLYCOL 17 GM PACKET PO ×2 (08:01→20:06)
[2018-06-30] MEDS: MULTIVITAMINS THERAPEUTIC TAB PO (08:01)
[2018-06-30] MEDS: GABAPENTIN 300 MG CAP PO ×3 (08:01→20:03)
[2018-06-30] MEDS: BUMETANIDE 0.5 MG TAB PO (08:02)
[2018-06-30] MEDS: DULOXETINE 30 MG CAP DR PO (08:02)
[2018-06-30] MEDS: ISOSORBIDE DINITRATE 10 MG TAB PO ×3 (08:02→20:05)
[2018-06-30] MEDS: FLUTICASONE/VILANTEROL 100-25 INH (08:02)
[2018-06-30] MEDS: METOPROLOL 25 MG TAB PO ×2 (08:02→20:05)
[2018-06-30] MEDS: COLLAGENASE 5 GM (UD JAR) TOP (08:03)
[2018-06-30] MEDS: ATORVASTATIN 40 MG TAB PO (20:05)
[2018-06-30] MEDS: INSULIN DETEMIR [LEVEMIR] (100 UNITS/ML) SYG SC (20:10)
[2018-07-01] MEDS: ACCU-CHEK XX ×5 (02:00→21:00)
[2018-07-01] MEDS: HYDROmorphONE 0.5 MG/0.5 ML SYG IV ×3 (07:01→17:02)
[2018-07-01] MEDS: INSULIN ASPART [NOVOLOG] 3 ML PEN SC ×7 (08:00→21:00)
[2018-07-01] MEDS: ISOSORBIDE DINITRATE 10 MG TAB PO ×3 (08:34→21:00)
[2018-07-01] MEDS: DULOXETINE 30 MG CAP DR PO (08:34)
[2018-07-01] MEDS: LINAGLIPTIN 5 MG TABLET PO (08:35)
[2018-07-01] MEDS: BUMETANIDE 0.5 MG TAB PO (08:35)
[2018-07-01] MEDS: GABAPENTIN 300 MG CAP PO ×2 (08:35→13:41)
[2018-07-01] MEDS: METOPROLOL 25 MG TAB PO ×2 (08:35→21:00)
[2018-07-01] MEDS: METHYLNALTREXONE 12 MG/0.6 ML VIAL SC (08:36)
[2018-07-01] MEDS: EMPAGLIFLOZIN 10 MG TABLET PO (08:36)
[2018-07-01] MEDS: FLUTICASONE/VILANTEROL 100-25 INH (08:36)
[2018-07-01] MEDS: MULTIVITAMINS THERAPEUTIC TAB PO (08:40)
[2018-07-01] MEDS: FAMOTIDINE 20 MG TAB PO ×2 (08:40→21:00)
[2018-07-01] MEDS: POLYETHYLENE GLYCOL 17 GM PACKET PO ×2 (08:43→21:00)
[2018-07-01] MEDS: APIXABAN 5 MG TABLET PO (08:46)
[2018-07-01] MEDS ORDERED: ONDANSETRON 4 MG INJ IV (12:00)
[2018-07-01] MEDS: COLLAGENASE 5 GM (UD JAR) TOP (13:44)
[2018-07-01 15:04] LABS: ALANINE AMINOTRANSFERASE 46 IU/L (13-69); ALBUMIN 3.6 g/dl (3.3-4.9); ALKALINE PHOSPHATASE 213 IU/L (42-121); ASPARTATE AMINO TRANSFERASE 45 IU/L (15-46); BILIRUBIN,INDIRECT 0.8 mg/dl (0-1.1); BILIRUBIN,TOTAL 0.8 mg/dl (0.2-1.3); LIPASE 1085 U/L (23-300); TOTAL PROTEIN 8.2 g/dl (6.1-8.1)
[2018-07-01 15:04] LABS: AMYLASE 246 U/L (11-123)
[2018-07-01] MEDS: ATORVASTATIN 40 MG TAB PO (21:00)
[2018-07-01] MEDS: INSULIN DETEMIR [LEVEMIR] (100 UNITS/ML) SYG SC (21:12)
[2018-07-02] MEDS: HYDROmorphONE 0.5 MG/0.5 ML SYG IV ×5 (00:01→20:25)
[2018-07-02] MEDS: APIXABAN 5 MG TABLET PO ×3 (00:01→20:27)
[2018-07-02] MEDS: ACCU-CHEK XX ×5 (02:00→20:33)
[2018-07-02] MEDS: HYDROCORTISONE 100 MG INJ IV (02:22)
[2018-07-02] MEDS: FLUTICASONE/VILANTEROL 100-25 INH (08:29)
[2018-07-02] MEDS: COLLAGENASE 5 GM (UD JAR) TOP (08:29)
[2018-07-02] MEDS: METHYLNALTREXONE 12 MG/0.6 ML VIAL SC (08:30)
[2018-07-02] MEDS: POLYETHYLENE GLYCOL 17 GM PACKET PO ×2 (08:31→20:30)
[2018-07-02] MEDS: FAMOTIDINE 20 MG TAB PO ×2 (08:31→20:27)
[2018-07-02] MEDS: DULOXETINE 30 MG CAP DR PO (08:32)
[2018-07-02] MEDS: BUMETANIDE 0.5 MG TAB PO (08:32)
[2018-07-02] MEDS: MULTIVITAMINS THERAPEUTIC TAB PO (08:32)
[2018-07-02] MEDS: EMPAGLIFLOZIN 10 MG TABLET PO (08:32)
[2018-07-02] MEDS: GABAPENTIN 300 MG CAP PO ×4 (08:33→20:28)
[2018-07-02] MEDS: ISOSORBIDE DINITRATE 10 MG TAB PO ×3 (08:33→20:27)
[2018-07-02] MEDS: METOPROLOL 25 MG TAB PO ×2 (08:34→20:28)
[2018-07-02] MEDS: INSULIN ASPART [NOVOLOG] 3 ML PEN SC ×7 (08:38→20:33)
[2018-07-02 11:01] LABS: TRIGLYCERIDES 67 mg/dl (0-149)
[2018-07-02 12:24] LABS: ADD UMIC YES; UR ASCORBIC ACID NEGATIVE (NEGATIVE); UR BILIRUBIN (Dip) NEGATIVE (NEGATIVE); UR BLOOD (Dip) NEGATIVE (NEGATIVE); UR BUDDING YEAST MANY /HPF (NONE SEEN); UR CLARITY CLOUDY (CLEAR); UR COLOR YELLOW (YELLOW); UR GLUCOSE (Dip) 3+ mg/dL (NEGATIVE); UR KETONES (Dip) NEGATIVE (NEGATIVE); UR LEUKOCYTE ESTERASE (Dip) 2+ Leu/ul (NEGATIVE); UR MUCUS FEW /HPF (NONE SEEN); UR NITRITE (Dip) NEGATIVE (NEGATIVE); UR RBC 94 /HPF (0-5); UR TOTAL PROTEIN (Dip) NEGATIVE (NEGATIVE); UR UROBILINOGEN (Dip) NEGATIVE (NEGATIVE); UR WBC 49 /HPF (0-5)
[2018-07-02] MEDS: metFORMIN 500 MG TAB PO (17:20)
[2018-07-02] MEDS: ALPRAZOLAM 0.25 MG TAB PO (18:29)
[2018-07-02] MEDS: ATORVASTATIN 40 MG TAB PO (20:27)
[2018-07-02] MEDS: INSULIN DETEMIR [LEVEMIR] (100 UNITS/ML) SYG SC (20:37)
[2018-07-03] MEDS: ACCU-CHEK XX ×5 (02:00→21:07)
[2018-07-03] MEDS: HYDROmorphONE 0.5 MG/0.5 ML SYG IV ×5 (06:10→22:50)
[2018-07-03 07:40] LABS: ADD MAN DIFF? NO
[2018-07-03 07:49] LABS: BASOPHILS % 0.4 % (0.0-2.0); EOSINOPHILS # 0.1 10^3/ul (0.0-0.5); EOSINOPHILS % 1.2 % (0.0-7.0); HEMATOCRIT 34.6 % (42.0-52.0); HEMOGLOBIN 10.5 g/dl (14.0-18.0); LYMPHOCYTES # 0.8 10^3/ul (0.8-2.9); LYMPHOCYTES % 7.4 % (15.0-51.0); MEAN CORPUSCULAR HEMOGLOBIN 25.4 pg (29.0-33.0); MEAN CORPUSCULAR HGB CONC 30.3 g/dl (32.0-37.0); MEAN CORPUSCULAR VOLUME 83.6 fl (82.0-101.0); MEAN PLATELET VOLUME 10.9 fl (7.4-10.4); MONOCYTE # 1.1 10^3/ul (0.3-0.9); MONOCYTES % 9.8 % (0.0-11.0); NEUTROPHIL # 8.8 10^3/ul (1.6-7.5); NEUTROPHILS % 80.8 % (39.0-77.0); PLATELET COUNT 167 10^3/UL (140-415); RED BLOOD COUNT 4.14 10^6/ul (4.70-6.10); RED CELL DISTRIBUTION WIDTH 16.4 % (11.5-14.5)
[2018-07-03 07:49] LABS: WHITE BLOOD COUNT 10.9 10^3/ul (4.8-10.8)
[2018-07-03 08:07] LABS: ALANINE AMINOTRANSFERASE 46 IU/L (13-69); ALBUMIN 3.3 g/dl (3.3-4.9); ALBUMIN/GLOBULIN RATIO 0.68; ALKALINE PHOSPHATASE 201 IU/L (42-121); AMYLASE 140 U/L (11-123); ANION GAP 14 (8-16); ASPARTATE AMINO TRANSFERASE 37 IU/L (15-46); BILIRUBIN,INDIRECT 1.7 mg/dl (0-1.1); BILIRUBIN,TOTAL 1.7 mg/dl (0.2-1.3); BLOOD UREA NITROGEN 40 mg/dl (7-20); CALCIUM 9.3 mg/dl (8.4-10.2); CARBON DIOXIDE 28 mmol/L (21-31); CHLORIDE 102 mmol/L (97-110); CREATININE 1.15 mg/dl (0.61-1.24); GLUCOSE 214 mg/dl (70-220); LIPASE 356 U/L (23-300); POTASSIUM 5.6 mmol/L (3.5-5.1); SODIUM 138 mmol/L (135-144); TOTAL PROTEIN 8.1 g/dl (6.1-8.1)
[2018-07-03] MEDS: EMPAGLIFLOZIN 10 MG TABLET PO (08:27)
[2018-07-03 08:28] LABS: PHOSPHORUS 3.9 mg/dl (2.5-4.9)
[2018-07-03 08:28] LABS: MAGNESIUM 2.3 mg/dl (1.7-2.5)
[2018-07-03] MEDS: BUMETANIDE 0.5 MG TAB PO (08:29)
[2018-07-03] MEDS: INSULIN ASPART [NOVOLOG] 3 ML PEN SC ×7 (08:29→21:00)
[2018-07-03] MEDS: DULOXETINE 30 MG CAP DR PO (08:29)
[2018-07-03] MEDS: METHYLNALTREXONE 12 MG/0.6 ML VIAL SC (08:30)
[2018-07-03] MEDS: GABAPENTIN 300 MG CAP PO ×3 (08:30→21:06)
[2018-07-03] MEDS: METOPROLOL 25 MG TAB PO ×2 (08:30→21:06)
[2018-07-03] MEDS: FLUTICASONE/VILANTEROL 100-25 INH (08:30)
[2018-07-03] MEDS: APIXABAN 5 MG TABLET PO ×2 (08:30→21:06)
[2018-07-03] MEDS: ISOSORBIDE DINITRATE 10 MG TAB PO ×3 (08:30→21:06)
[2018-07-03] MEDS: MULTIVITAMINS THERAPEUTIC TAB PO (08:30)
[2018-07-03] MEDS: FAMOTIDINE 20 MG TAB PO ×2 (08:30→21:06)
[2018-07-03] MEDS: POLYETHYLENE GLYCOL 17 GM PACKET PO ×2 (08:31→21:07)
[2018-07-03] MEDS: COLLAGENASE 5 GM (UD JAR) TOP (08:31)
[2018-07-03] MEDS: NA POLYST SULFON 15 GM/60 ML BTL PO (15:49)
[2018-07-03] MEDS: metFORMIN 500 MG TAB PO (17:12)
[2018-07-03] MEDS: FLUCONAZOLE 200 MG TAB PO (17:21)
[2018-07-03 18:51] LABS: ADD UMIC YES; UR ASCORBIC ACID 40 mg/dL (NEGATIVE); UR BILIRUBIN (Dip) NEGATIVE (NEGATIVE); UR BLOOD (Dip) NEGATIVE (NEGATIVE); UR BUDDING YEAST MANY /HPF (NONE SEEN); UR CLARITY CLOUDY (CLEAR); UR COLOR YELLOW (YELLOW); UR GLUCOSE (Dip) 3+ mg/dL (NEGATIVE); UR KETONES (Dip) NEGATIVE (NEGATIVE); UR LEUKOCYTE ESTERASE (Dip) 3+ Leu/ul (NEGATIVE); UR NITRITE (Dip) NEGATIVE (NEGATIVE); UR RBC 56 /HPF (0-5); UR SPECIFIC GRAVITY (Dip) 1.012 (1.003-1.030); UR TOTAL PROTEIN (Dip) NEGATIVE (NEGATIVE); UR UROBILINOGEN (Dip) 1+ mg/dL (NEGATIVE); UR WBC 104 /HPF (0-5)
[2018-07-03] MEDS: MEROPENEM 1 GM/50ML(PMX) 50 ML IVPB (21:02)
[2018-07-03] MEDS: INSULIN DETEMIR [LEVEMIR] (100 UNITS/ML) SYG SC (21:04)
[2018-07-03] MEDS: ATORVASTATIN 40 MG TAB PO (21:05)
[2018-07-03] MEDS: ALPRAZOLAM 0.25 MG TAB PO (21:40)
[2018-07-04] MEDS: ACCU-CHEK XX ×5 (02:00→21:17)
[2018-07-04] MEDS: HYDROmorphONE 0.5 MG/0.5 ML SYG IV ×4 (06:13→20:32)
[2018-07-04] MEDS: INSULIN ASPART [NOVOLOG] 3 ML PEN SC ×7 (08:00→20:37)
[2018-07-04] MEDS: BUMETANIDE 0.5 MG TAB PO (09:01)
[2018-07-04] MEDS: METOPROLOL 25 MG TAB PO ×2 (09:01→20:33)
[2018-07-04] MEDS: ISOSORBIDE DINITRATE 10 MG TAB PO ×3 (09:01→20:33)
[2018-07-04] MEDS: EMPAGLIFLOZIN 10 MG TABLET PO (09:02)
[2018-07-04] MEDS: APIXABAN 5 MG TABLET PO ×2 (09:02→20:33)
[2018-07-04] MEDS: FLUCONAZOLE 200 MG TAB PO (09:02)
[2018-07-04] MEDS: FLUTICASONE/VILANTEROL 100-25 INH (09:03)
[2018-07-04] MEDS: DULOXETINE 30 MG CAP DR PO (09:03)
[2018-07-04] MEDS: MULTIVITAMINS THERAPEUTIC TAB PO (09:23)
[2018-07-04] MEDS: MEROPENEM 1 GM/50ML(PMX) 50 ML IVPB ×2 (09:23→20:32)
[2018-07-04] MEDS: GABAPENTIN 300 MG CAP PO ×3 (09:23→20:33)
[2018-07-04] MEDS: FAMOTIDINE 20 MG TAB PO ×2 (09:23→20:33)
[2018-07-04] MEDS: COLLAGENASE 5 GM (UD JAR) TOP (09:24)
[2018-07-04] MEDS: METHYLNALTREXONE 12 MG/0.6 ML VIAL SC (09:24)
[2018-07-04] MEDS: POLYETHYLENE GLYCOL 17 GM PACKET PO ×2 (09:52→20:32)
[2018-07-04 13:54] LABS: ADD MAN DIFF? NO
[2018-07-04 13:56] LABS: ABNORMAL IP MESSAGE 1; BASOPHILS % 0.3 % (0.0-2.0); EOSINOPHILS # 0.2 10^3/ul (0.0-0.5); EOSINOPHILS % 3.2 % (0.0-7.0); HEMATOCRIT 35.4 % (42.0-52.0); HEMOGLOBIN 10.9 g/dl (14.0-18.0); LYMPHOCYTES # 0.5 10^3/ul (0.8-2.9); LYMPHOCYTES % 6.8 % (15.0-51.0); MEAN CORPUSCULAR HEMOGLOBIN 25.6 pg (29.0-33.0); MEAN CORPUSCULAR HGB CONC 30.8 g/dl (32.0-37.0); MEAN CORPUSCULAR VOLUME 83.3 fl (82.0-101.0); MEAN PLATELET VOLUME 10.3 fl (7.4-10.4); MONOCYTE # 0.6 10^3/ul (0.3-0.9); MONOCYTES % 8.3 % (0.0-11.0); NEUTROPHIL # 5.4 10^3/ul (1.6-7.5); NEUTROPHILS % 81.1 % (39.0-77.0); PLATELET COUNT 163 10^3/UL (140-415); POSITIVE DIFF @See below; RED BLOOD COUNT 4.25 10^6/ul (4.70-6.10); RED CELL DISTRIBUTION WIDTH 15.9 % (11.5-14.5)
[2018-07-04 13:56] LABS: WHITE BLOOD COUNT 6.6 10^3/ul (4.8-10.8)
[2018-07-04 14:20] LABS: ANION GAP 11 (8-16); BLOOD UREA NITROGEN 38 mg/dl (7-20); CALCIUM 9.2 mg/dl (8.4-10.2); CARBON DIOXIDE 32 mmol/L (21-31); CHLORIDE 103 mmol/L (97-110); CREATININE 1.01 mg/dl (0.61-1.24); GLUCOSE 182 mg/dl (70-220); POTASSIUM 4.8 mmol/L (3.5-5.1); SODIUM 141 mmol/L (135-144)
[2018-07-04 14:48] LABS: ANISOCYTOSIS 2+ (0-0); BAND NEUTROPHILS #M 0.2 10^3/ul (0.0-0.6); BAND NEUTROPHILS % (M) 4 % (0-4); BASOPHILS % (M) 1 % (0-2); EOSINOPHILS % (M) 4 % (0-7); GIANT THROMBO% (M) 1 % (0-0); LYMPHOCYTES #M 0.2 10^3/ul (0.8-2.9); LYMPHOCYTES % (M) 4 % (15-51); MICROCYTOSIS 2+ (0-0); MONOCYTE #M 0.3 10^3/ul (0.3-0.9); MONOCYTES % (M) 6 % (0-11); PLATELET ESTIMATE NORMAL; REACTIVE LYMPHOCYTES% (M) 1 % (0-0); SEG NEUT #M 5.3 10^3/ul (1.6-7.5); SEGMENTED NEUTROPHILS (M) % 80 % (39-77); SMUDGE%M 13 % (0-0)
[2018-07-04] MEDS: metFORMIN 500 MG TAB PO (17:42)
[2018-07-04] MEDS: ATORVASTATIN 40 MG TAB PO (20:33)
[2018-07-04] MEDS: INSULIN DETEMIR [LEVEMIR] (100 UNITS/ML) SYG SC (20:36)
[2018-07-04] MEDS: ALPRAZOLAM 0.25 MG TAB PO (23:46)
[2018-07-05] MEDS: HYDROmorphONE 0.5 MG/0.5 ML SYG IV ×6 (00:30→21:29)
[2018-07-05] MEDS: ACCU-CHEK XX ×3 (02:00→11:30)
[2018-07-05] MEDS: DULOXETINE 30 MG CAP DR PO (08:54)
[2018-07-05] MEDS: APIXABAN 5 MG TABLET PO ×2 (08:55→20:58)
[2018-07-05] MEDS: FAMOTIDINE 20 MG TAB PO ×2 (08:55→20:58)
[2018-07-05] MEDS: BUMETANIDE 0.5 MG TAB PO (08:55)
[2018-07-05] MEDS: EMPAGLIFLOZIN 10 MG TABLET PO (08:55)
[2018-07-05] MEDS: COLLAGENASE 5 GM (UD JAR) TOP (08:58)
[2018-07-05] MEDS: FLUTICASONE/VILANTEROL 100-25 INH (09:00)
[2018-07-05] MEDS: ISOSORBIDE DINITRATE 10 MG TAB PO ×3 (09:03→21:25)
[2018-07-05] MEDS: GABAPENTIN 300 MG CAP PO ×3 (09:04→20:58)
[2018-07-05] MEDS: MULTIVITAMINS THERAPEUTIC TAB PO (09:04)
[2018-07-05] MEDS: POLYETHYLENE GLYCOL 17 GM PACKET PO ×2 (09:04→21:21)
[2018-07-05] MEDS: METOPROLOL 25 MG TAB PO ×2 (09:04→21:24)
[2018-07-05] MEDS: METHYLNALTREXONE 12 MG/0.6 ML VIAL SC (09:06)
[2018-07-05] MEDS: MEROPENEM 1 GM/50ML(PMX) 50 ML IVPB ×2 (09:07→20:58)
[2018-07-05] MEDS: INSULIN ASPART [NOVOLOG] 3 ML PEN SC ×7 (09:13→21:00)
[2018-07-05] MEDS: FLUCONAZOLE 200 MG TAB PO (09:28)
[2018-07-05] MEDS: metFORMIN 500 MG TAB PO (17:18)
[2018-07-05] MEDS: VORICONAZOLE 200 MG TAB PO (20:58)
[2018-07-05] MEDS: ATORVASTATIN 40 MG TAB PO (20:58)
[2018-07-05] MEDS: INSULIN DETEMIR [LEVEMIR] (100 UNITS/ML) SYG SC (21:21)
[2018-07-06] MEDS: HYDROmorphONE 0.5 MG/0.5 ML SYG IV ×4 (01:28→19:22)
[2018-07-06] MEDS: ACCU-CHEK XX (02:00)
[2018-07-06] MEDS: INSULIN ASPART [NOVOLOG] 3 ML PEN SC ×7 (08:00→20:33)
[2018-07-06 08:25] LABS: ADD MAN DIFF? NO
[2018-07-06 08:27] LABS: BASOPHILS % 0.6 % (0.0-2.0); EOSINOPHILS # 0.3 10^3/ul (0.0-0.5); EOSINOPHILS % 6.1 % (0.0-7.0); HEMATOCRIT 34.2 % (42.0-52.0); HEMOGLOBIN 10.3 g/dl (14.0-18.0); LYMPHOCYTES # 0.8 10^3/ul (0.8-2.9); MEAN CORPUSCULAR HEMOGLOBIN 25.8 pg (29.0-33.0); MEAN CORPUSCULAR HGB CONC 30.1 g/dl (32.0-37.0); MEAN CORPUSCULAR VOLUME 85.7 fl (82.0-101.0); MEAN PLATELET VOLUME 10.2 fl (7.4-10.4); MONOCYTE # 0.5 10^3/ul (0.3-0.9); MONOCYTES % 11.7 % (0.0-11.0); NEUTROPHIL # 2.9 10^3/ul (1.6-7.5); POSITIVE DIFF @See below; RED BLOOD COUNT 3.99 10^6/ul (4.70-6.10); RED CELL DISTRIBUTION WIDTH 15.7 % (11.5-14.5)
[2018-07-06 08:27] LABS: WHITE BLOOD COUNT 4.6 10^3/ul (4.8-10.8)
[2018-07-06 08:42] LABS: PLATELET COUNT 120 10^3/UL (140-415)
[2018-07-06] MEDS: MULTIVITAMINS THERAPEUTIC TAB PO (08:45)
[2018-07-06] MEDS: FLUTICASONE/VILANTEROL 100-25 INH (08:45)
[2018-07-06] MEDS: DULOXETINE 30 MG CAP DR PO (08:45)
[2018-07-06] MEDS: ISOSORBIDE DINITRATE 10 MG TAB PO ×3 (08:45→20:31)
[2018-07-06] MEDS: FAMOTIDINE 20 MG TAB PO ×2 (08:45→20:31)
[2018-07-06] MEDS: GABAPENTIN 300 MG CAP PO ×3 (08:45→20:32)
[2018-07-06] MEDS: EMPAGLIFLOZIN 10 MG TABLET PO (08:45)
[2018-07-06] MEDS: VORICONAZOLE 200 MG TAB PO ×2 (08:45→20:32)
[2018-07-06] MEDS: METHYLNALTREXONE 12 MG/0.6 ML VIAL SC (08:46)
[2018-07-06] MEDS: APIXABAN 5 MG TABLET PO ×2 (08:46→20:32)
[2018-07-06] MEDS: POLYETHYLENE GLYCOL 17 GM PACKET PO ×3 (08:46→20:31)
[2018-07-06] MEDS: METOPROLOL 25 MG TAB PO ×2 (08:46→20:32)
[2018-07-06] MEDS: COLLAGENASE 5 GM (UD JAR) TOP (08:47)
[2018-07-06] MEDS: MEROPENEM 1 GM/50ML(PMX) 50 ML IVPB ×2 (08:51→20:31)
[2018-07-06 08:54] LABS: ANION GAP 11 (8-16); BLOOD UREA NITROGEN 46 mg/dl (7-20); CALCIUM 9.3 mg/dl (8.4-10.2); CARBON DIOXIDE 29 mmol/L (21-31); CHLORIDE 106 mmol/L (97-110); CREATININE 1.02 mg/dl (0.61-1.24); GLUCOSE 110 mg/dl (70-220); POTASSIUM 5.4 mmol/L (3.5-5.1); SODIUM 141 mmol/L (135-144)
[2018-07-06] MEDS: BUMETANIDE 0.5 MG TAB PO (09:00)
[2018-07-06 09:16] LABS: LIPASE 321 U/L (23-300)
[2018-07-06 09:41] LABS: AMYLASE 135 U/L (11-123)
[2018-07-06] MEDS: metFORMIN 500 MG TAB PO (17:15)
[2018-07-06] MEDS: ATORVASTATIN 40 MG TAB PO (20:31)
[2018-07-06] MEDS: INSULIN DETEMIR [LEVEMIR] (100 UNITS/ML) SYG SC (20:35)
[2018-07-07] MEDS: HYDROmorphONE 0.5 MG/0.5 ML SYG IV ×6 (00:34→21:20)
[2018-07-07] MEDS: ACCU-CHEK XX (02:00)
[2018-07-07] MEDS: EMPAGLIFLOZIN 10 MG TABLET PO (09:21)
[2018-07-07] MEDS: METHYLNALTREXONE 12 MG/0.6 ML VIAL SC (09:21)
[2018-07-07] MEDS: GABAPENTIN 300 MG CAP PO ×3 (09:22→21:19)
[2018-07-07] MEDS: VORICONAZOLE 200 MG TAB PO ×2 (09:22→21:19)
[2018-07-07] MEDS: APIXABAN 5 MG TABLET PO ×2 (09:22→21:19)
[2018-07-07] MEDS: POLYETHYLENE GLYCOL 17 GM PACKET PO ×2 (09:22→21:20)
[2018-07-07] MEDS: MULTIVITAMINS THERAPEUTIC TAB PO (09:22)
[2018-07-07] MEDS: ISOSORBIDE DINITRATE 10 MG TAB PO ×3 (09:22→21:20)
[2018-07-07] MEDS: DULOXETINE 30 MG CAP DR PO (09:22)
[2018-07-07] MEDS: FAMOTIDINE 20 MG TAB PO ×2 (09:22→21:19)
[2018-07-07] MEDS: METOPROLOL 25 MG TAB PO ×2 (09:22→21:21)
[2018-07-07] MEDS: COLLAGENASE 5 GM (UD JAR) TOP (09:23)
[2018-07-07] MEDS: BUMETANIDE 0.5 MG TAB PO (09:23)
[2018-07-07] MEDS: FLUTICASONE/VILANTEROL 100-25 INH (09:23)
[2018-07-07] MEDS: INSULIN ASPART [NOVOLOG] 3 ML PEN SC ×7 (09:34→21:24)
[2018-07-07] MEDS: MEROPENEM 1 GM/50ML(PMX) 50 ML IVPB ×2 (09:44→21:37)
[2018-07-07] MEDS: ALPRAZOLAM 0.25 MG TAB PO (14:50)
[2018-07-07] MEDS: BUMETANIDE 1 MG INJ IV (17:20)
[2018-07-07] MEDS: metFORMIN 500 MG TAB PO (17:20)
[2018-07-07] MEDS: ATORVASTATIN 40 MG TAB PO (21:19)
[2018-07-07] MEDS: INSULIN DETEMIR [LEVEMIR] (100 UNITS/ML) SYG SC (21:24)
[2018-07-08] MEDS: HYDROmorphONE 0.5 MG/0.5 ML SYG IV ×4 (01:47→16:20)
[2018-07-08] MEDS: ACCU-CHEK XX (02:00)
[2018-07-08 07:07] LABS: WHITE BLOOD COUNT 4.8 10^3/ul (4.8-10.8)
[2018-07-08 07:07] LABS: ADD MAN DIFF? NO; BASOPHILS % 0.6 % (0.0-2.0); EOSINOPHILS # 0.3 10^3/ul (0.0-0.5); EOSINOPHILS % 5.7 % (0.0-7.0); HEMATOCRIT 32.9 % (42.0-52.0); HEMOGLOBIN 9.9 g/dl (14.0-18.0); LYMPHOCYTES # 0.7 10^3/ul (0.8-2.9); LYMPHOCYTES % 14.3 % (15.0-51.0); MEAN CORPUSCULAR HEMOGLOBIN 25.5 pg (29.0-33.0); MEAN CORPUSCULAR HGB CONC 30.1 g/dl (32.0-37.0); MEAN CORPUSCULAR VOLUME 84.8 fl (82.0-101.0); MEAN PLATELET VOLUME 10.4 fl (7.4-10.4); MONOCYTE # 0.5 10^3/ul (0.3-0.9); MONOCYTES % 10.5 % (0.0-11.0); NEUTROPHIL # 3.2 10^3/ul (1.6-7.5); NEUTROPHILS % 68.3 % (39.0-77.0); PLATELET COUNT 158 10^3/UL (140-415); RED BLOOD COUNT 3.88 10^6/ul (4.70-6.10); RED CELL DISTRIBUTION WIDTH 15.9 % (11.5-14.5)
[2018-07-08 07:29] LABS: AMYLASE 113 U/L (11-123)
[2018-07-08 07:29] LABS: LIPASE 281 U/L (23-300)
[2018-07-08 07:36] LABS: ANION GAP 13 (8-16); BLOOD UREA NITROGEN 50 mg/dl (7-20); CALCIUM 9.2 mg/dl (8.4-10.2); CARBON DIOXIDE 33 mmol/L (21-31); CHLORIDE 101 mmol/L (97-110); CREATININE 1.21 mg/dl (0.61-1.24); GLUCOSE 214 mg/dl (70-220); POTASSIUM 4.6 mmol/L (3.5-5.1); SODIUM 142 mmol/L (135-144)
[2018-07-08] MEDS: EMPAGLIFLOZIN 10 MG TABLET PO ×2 (08:00→12:24)
[2018-07-08] MEDS: INSULIN ASPART [NOVOLOG] 3 ML PEN SC ×7 (08:52→20:39)
[2018-07-08] MEDS: POLYETHYLENE GLYCOL 17 GM PACKET PO ×2 (09:00→20:37)
[2018-07-08] MEDS: DULOXETINE 30 MG CAP DR PO (09:53)
[2018-07-08] MEDS: VORICONAZOLE 200 MG TAB PO ×2 (09:53→20:37)
[2018-07-08] MEDS: GABAPENTIN 300 MG CAP PO ×3 (09:53→20:37)
[2018-07-08] MEDS: MULTIVITAMINS THERAPEUTIC TAB PO (09:53)
[2018-07-08] MEDS: FLUTICASONE/VILANTEROL 100-25 INH (09:54)
[2018-07-08] MEDS: APIXABAN 5 MG TABLET PO ×2 (09:54→20:37)
[2018-07-08] MEDS: FAMOTIDINE 20 MG TAB PO ×2 (09:54→20:37)
[2018-07-08] MEDS: ISOSORBIDE DINITRATE 10 MG TAB PO ×3 (09:59→20:37)
[2018-07-08] MEDS: METOPROLOL 25 MG TAB PO ×2 (09:59→20:37)
[2018-07-08] MEDS: METHYLNALTREXONE 12 MG/0.6 ML VIAL SC ×2 (10:00→10:19)
[2018-07-08] MEDS: COLLAGENASE 5 GM (UD JAR) TOP (10:00)
[2018-07-08] MEDS: BUMETANIDE 0.5 MG TAB PO (10:00)
[2018-07-08] MEDS: LINAGLIPTIN 5 MG TABLET PO (12:24)
[2018-07-08] MEDS: metFORMIN 500 MG TAB PO (17:21)
[2018-07-08] MEDS: ATORVASTATIN 40 MG TAB PO (20:36)
[2018-07-08] MEDS: INSULIN DETEMIR [LEVEMIR] (100 UNITS/ML) SYG SC (20:40)
[2018-07-09] MEDS: ACCU-CHEK XX (02:00)
[2018-07-09] MEDS: HYDROmorphONE 0.5 MG/0.5 ML SYG IV ×5 (03:35→21:26)
[2018-07-09] MEDS: INSULIN ASPART [NOVOLOG] 3 ML PEN SC ×7 (08:55→20:43)
[2018-07-09] MEDS: EMPAGLIFLOZIN 10 MG TABLET PO (09:49)
[2018-07-09] MEDS: VORICONAZOLE 200 MG TAB PO ×2 (09:50→20:44)
[2018-07-09] MEDS: FAMOTIDINE 20 MG TAB PO ×2 (09:51→20:44)
[2018-07-09] MEDS: COLLAGENASE 5 GM (UD JAR) TOP (09:51)
[2018-07-09] MEDS: APIXABAN 5 MG TABLET PO ×2 (09:51→20:45)
[2018-07-09] MEDS: DULOXETINE 30 MG CAP DR PO (09:51)
[2018-07-09] MEDS: MULTIVITAMINS THERAPEUTIC TAB PO (09:51)
[2018-07-09] MEDS: GABAPENTIN 300 MG CAP PO ×3 (09:51→20:44)
[2018-07-09] MEDS: FLUTICASONE/VILANTEROL 100-25 INH (09:52)
[2018-07-09] MEDS: BUMETANIDE 0.5 MG TAB PO (09:58)
[2018-07-09] MEDS: METOPROLOL 25 MG TAB PO ×2 (09:59→20:44)
[2018-07-09] MEDS: ISOSORBIDE DINITRATE 10 MG TAB PO ×3 (09:59→20:45)
[2018-07-09] MEDS: POLYETHYLENE GLYCOL 17 GM PACKET PO ×2 (10:03→20:50)
[2018-07-09] MEDS: METHYLNALTREXONE 12 MG/0.6 ML VIAL SC (10:03)
[2018-07-09] MEDS: ALPRAZOLAM 0.25 MG TAB PO ×2 (10:18→19:19)
[2018-07-09] MEDS: metFORMIN 500 MG TAB PO (17:12)
[2018-07-09] MEDS: INSULIN DETEMIR [LEVEMIR] (100 UNITS/ML) SYG SC (20:42)
[2018-07-09] MEDS: ATORVASTATIN 40 MG TAB PO (20:44)
[2018-07-10] MEDS: HYDROmorphONE 0.5 MG/0.5 ML SYG IV ×5 (01:46→20:29)
[2018-07-10] MEDS: ACCU-CHEK XX (02:47)
[2018-07-10] MEDS: INSULIN ASPART [NOVOLOG] 3 ML PEN SC ×7 (08:48→20:37)
[2018-07-10] MEDS: FLUTICASONE/VILANTEROL 100-25 INH (08:50)
[2018-07-10] MEDS: METHYLNALTREXONE 12 MG/0.6 ML VIAL SC ×2 (08:50→08:57)
[2018-07-10] MEDS: MULTIVITAMINS THERAPEUTIC TAB PO (08:51)
[2018-07-10] MEDS: DULOXETINE 30 MG CAP DR PO (08:51)
[2018-07-10] MEDS: BUMETANIDE 0.5 MG TAB PO (08:51)
[2018-07-10] MEDS: APIXABAN 5 MG TABLET PO ×2 (08:51→20:31)
[2018-07-10] MEDS: GABAPENTIN 300 MG CAP PO ×3 (08:51→20:30)
[2018-07-10] MEDS: FAMOTIDINE 20 MG TAB PO ×2 (08:51→20:31)
[2018-07-10] MEDS: VORICONAZOLE 200 MG TAB PO (08:51)
[2018-07-10] MEDS: METOPROLOL 25 MG TAB PO ×2 (08:51→20:31)
[2018-07-10] MEDS: ISOSORBIDE DINITRATE 10 MG TAB PO ×3 (08:52→20:30)
[2018-07-10] MEDS: EMPAGLIFLOZIN 10 MG TABLET PO (08:52)
[2018-07-10] MEDS: POLYETHYLENE GLYCOL 17 GM PACKET PO ×3 (08:52→20:29)
[2018-07-10 14:13] LABS: ANION GAP 13 (8-16)
[2018-07-10 14:15] LABS: BLOOD UREA NITROGEN 59 mg/dl (7-20); CALCIUM 9.4 mg/dl (8.4-10.2); CARBON DIOXIDE 30 mmol/L (21-31); CHLORIDE 103 mmol/L (97-110); CREATININE 0.98 mg/dl (0.61-1.24); GLUCOSE 123 mg/dl (70-220); POTASSIUM 4.6 mmol/L (3.5-5.1); SODIUM 141 mmol/L (135-144)
[2018-07-10] MEDS: COLLAGENASE 5 GM (UD JAR) TOP (15:46)
[2018-07-10] MEDS: metFORMIN 850 MG TAB PO (17:13)
[2018-07-10] MEDS: ALPRAZOLAM 0.25 MG TAB PO (17:13)
[2018-07-10] MEDS: ATORVASTATIN 40 MG TAB PO (20:30)
[2018-07-10] MEDS: INSULIN DETEMIR [LEVEMIR] (100 UNITS/ML) SYG SC (20:38)
[2018-07-11] MEDS: ACCU-CHEK XX (02:00)
[2018-07-11] MEDS: HYDROmorphONE 0.5 MG/0.5 ML SYG IV ×5 (02:44→20:45)
[2018-07-11] MEDS: INSULIN ASPART [NOVOLOG] 3 ML PEN SC ×7 (08:00→21:00)
[2018-07-11] MEDS: POLYETHYLENE GLYCOL 17 GM PACKET PO ×3 (09:00→21:00)
[2018-07-11] MEDS: FLUTICASONE/VILANTEROL 100-25 INH (09:28)
[2018-07-11] MEDS: EMPAGLIFLOZIN 10 MG TABLET PO (09:29)
[2018-07-11] MEDS: COLLAGENASE 5 GM (UD JAR) TOP (09:29)
[2018-07-11] MEDS: ISOSORBIDE DINITRATE 10 MG TAB PO ×3 (09:29→21:41)
[2018-07-11] MEDS: DULOXETINE 30 MG CAP DR PO (09:30)
[2018-07-11] MEDS: METOPROLOL 25 MG TAB PO ×2 (09:30→21:42)
[2018-07-11] MEDS: APIXABAN 5 MG TABLET PO ×2 (09:30→21:42)
[2018-07-11] MEDS: FAMOTIDINE 20 MG TAB PO ×2 (09:30→21:48)
[2018-07-11] MEDS: GABAPENTIN 300 MG CAP PO ×3 (09:30→21:42)
[2018-07-11] MEDS: MULTIVITAMINS THERAPEUTIC TAB PO (09:30)
[2018-07-11] MEDS: BUMETANIDE 0.5 MG TAB PO (09:31)
[2018-07-11] MEDS: METHYLNALTREXONE 12 MG/0.6 ML VIAL SC (09:31)
[2018-07-11] MEDS: metFORMIN 850 MG TAB PO (17:34)
[2018-07-11] MEDS: ATORVASTATIN 40 MG TAB PO (21:42)
[2018-07-11] MEDS: INSULIN DETEMIR [LEVEMIR] (100 UNITS/ML) SYG SC (21:44)
[2018-07-12] MEDS: ACCU-CHEK XX (02:00)
[2018-07-12] MEDS: HYDROmorphONE 0.5 MG/0.5 ML SYG IV ×4 (05:03→20:42)
[2018-07-12] MEDS: INSULIN ASPART [NOVOLOG] 3 ML PEN SC ×7 (08:00→21:00)
[2018-07-12] MEDS: ALPRAZOLAM 0.25 MG TAB PO (08:23)
[2018-07-12] MEDS: BUMETANIDE 0.5 MG TAB PO (08:24)
[2018-07-12] MEDS: METOPROLOL 25 MG TAB PO ×2 (08:25→20:59)
[2018-07-12] MEDS: ISOSORBIDE DINITRATE 10 MG TAB PO ×3 (08:25→20:59)
[2018-07-12] MEDS: FLUTICASONE/VILANTEROL 100-25 INH (08:28)
[2018-07-12] MEDS: GABAPENTIN 300 MG CAP PO ×3 (10:13→20:58)
[2018-07-12] MEDS: EMPAGLIFLOZIN 10 MG TABLET PO (10:13)
[2018-07-12] MEDS: APIXABAN 5 MG TABLET PO ×2 (10:13→20:59)
[2018-07-12] MEDS: MULTIVITAMINS THERAPEUTIC TAB PO (10:13)
[2018-07-12] MEDS: METHYLNALTREXONE 12 MG/0.6 ML VIAL SC (10:14)
[2018-07-12] MEDS: POLYETHYLENE GLYCOL 17 GM PACKET PO ×2 (10:14→21:00)
[2018-07-12] MEDS: COLLAGENASE 5 GM (UD JAR) TOP (10:15)
[2018-07-12] MEDS: FAMOTIDINE 20 MG TAB PO ×2 (10:15→20:58)
[2018-07-12] MEDS: DULOXETINE 30 MG CAP DR PO (10:16)
[2018-07-12 12:13] LABS: ADD MAN DIFF? NO
[2018-07-12 12:15] LABS: BASOPHILS % 0.6 % (0.0-2.0); EOSINOPHILS # 0.4 10^3/ul (0.0-0.5); EOSINOPHILS % 5.8 % (0.0-7.0); HEMOGLOBIN 10.6 g/dl (14.0-18.0); LYMPHOCYTES % 14.4 % (15.0-51.0); MEAN CORPUSCULAR HEMOGLOBIN 25.8 pg (29.0-33.0); MEAN CORPUSCULAR HGB CONC 30.3 g/dl (32.0-37.0); MEAN CORPUSCULAR VOLUME 85.2 fl (82.0-101.0); MEAN PLATELET VOLUME 10.8 fl (7.4-10.4); MONOCYTE # 0.8 10^3/ul (0.3-0.9); NEUTROPHIL # 4.7 10^3/ul (1.6-7.5); NEUTROPHILS % 67.2 % (39.0-77.0); PLATELET COUNT 194 10^3/UL (140-415); RED BLOOD COUNT 4.11 10^6/ul (4.70-6.10); RED CELL DISTRIBUTION WIDTH 16.1 % (11.5-14.5)
[2018-07-12 12:38] LABS: ALANINE AMINOTRANSFERASE 48 IU/L (13-69); ALBUMIN 3.4 g/dl (3.3-4.9); ALKALINE PHOSPHATASE 258 IU/L (42-121); ASPARTATE AMINO TRANSFERASE 62 IU/L (15-46); TOTAL PROTEIN 8.2 g/dl (6.1-8.1)
[2018-07-12 12:39] LABS: ANION GAP 12 (8-16); BLOOD UREA NITROGEN 49 mg/dl (7-20); CALCIUM 9.7 mg/dl (8.4-10.2); CARBON DIOXIDE 34 mmol/L (21-31); CHLORIDE 102 mmol/L (97-110); CREATININE 0.94 mg/dl (0.61-1.24); GLUCOSE 98 mg/dl (70-220); POTASSIUM 4.3 mmol/L (3.5-5.1); SODIUM 144 mmol/L (135-144)
[2018-07-12] MEDS: [UNRECOGNIZED DRUG - OTHER] XX ×2 (14:02→22:00)
[2018-07-12] MEDS: metFORMIN 850 MG TAB PO ×2 (17:28→17:35)
[2018-07-12] MEDS: ATORVASTATIN 40 MG TAB PO (20:58)
[2018-07-12] MEDS: INSULIN DETEMIR [LEVEMIR] (100 UNITS/ML) SYG SC (21:02)
[2018-07-13] MEDS: HYDROmorphONE 0.5 MG/0.5 ML SYG IV ×7 (00:47→23:24)
[2018-07-13] MEDS: ACCU-CHEK XX (02:00)
[2018-07-13] MEDS: [UNRECOGNIZED DRUG - OTHER] XX ×3 (06:00→22:00)
[2018-07-13] MEDS: ALPRAZOLAM 0.25 MG TAB PO (06:50)
[2018-07-13] MEDS: FLUTICASONE/VILANTEROL 100-25 INH (08:08)
[2018-07-13] MEDS: ISOSORBIDE DINITRATE 10 MG TAB PO ×3 (08:09→21:27)
[2018-07-13] MEDS: EMPAGLIFLOZIN 10 MG TABLET PO (08:09)
[2018-07-13] MEDS: APIXABAN 5 MG TABLET PO ×2 (08:09→21:26)
[2018-07-13] MEDS: GABAPENTIN 300 MG CAP PO ×3 (08:09→21:28)
[2018-07-13] MEDS: BUMETANIDE 0.5 MG TAB PO (08:09)
[2018-07-13] MEDS: FAMOTIDINE 20 MG TAB PO ×2 (08:09→21:26)
[2018-07-13] MEDS: MULTIVITAMINS THERAPEUTIC TAB PO (08:09)
[2018-07-13] MEDS: DULOXETINE 30 MG CAP DR PO (08:09)
[2018-07-13] MEDS: METHYLNALTREXONE 12 MG/0.6 ML VIAL SC (08:09)
[2018-07-13] MEDS: METOPROLOL 25 MG TAB PO ×2 (08:10→21:27)
[2018-07-13] MEDS: POLYETHYLENE GLYCOL 17 GM PACKET PO ×2 (08:10→21:00)
[2018-07-13] MEDS: COLLAGENASE 5 GM (UD JAR) TOP (08:11)
[2018-07-13] MEDS: INSULIN ASPART [NOVOLOG] 3 ML PEN SC ×7 (08:19→21:00)
[2018-07-13] MEDS: SENNA TAB PO (13:58)
[2018-07-13] MEDS: metFORMIN 850 MG TAB PO (17:04)
[2018-07-13] MEDS ORDERED: LIDOCAINE 1% (MPF) 5 ML VIAL SC (18:30)
[2018-07-13 20:44] LABS: HAAIG REFLEX REFLEX FILED
[2018-07-13] MEDS: ATORVASTATIN 40 MG TAB PO (21:25)
[2018-07-13] MEDS: INSULIN DETEMIR [LEVEMIR] (100 UNITS/ML) SYG SC (21:30)
[2018-07-13 22:16] LABS: HEPATITIS B SURFACE ANTIGEN NEGATIVE (NEGATIVE)
[2018-07-13 22:34] LABS: HEPATITIS B CORE ANTIBODY NEGATIVE (NEGATIVE); HEPATITIS C VIRAL ANTIBODY NEGATIVE (NEGATIVE)
[2018-07-14] MEDS: ACCU-CHEK XX (02:00)
[2018-07-14] MEDS: HYDROmorphONE 0.5 MG/0.5 ML SYG IV ×5 (05:23→21:48)
[2018-07-14] MEDS: [UNRECOGNIZED DRUG - OTHER] XX ×3 (05:40→21:59)
[2018-07-14 07:19] LABS: ADD MAN DIFF? NO
[2018-07-14 07:22] LABS: BASOPHILS % 0.6 % (0.0-2.0); EOSINOPHILS # 0.3 10^3/ul (0.0-0.5); EOSINOPHILS % 4.5 % (0.0-7.0); HEMOGLOBIN 10.6 g/dl (14.0-18.0); LYMPHOCYTES # 1.1 10^3/ul (0.8-2.9); LYMPHOCYTES % 16.7 % (15.0-51.0); MEAN CORPUSCULAR HEMOGLOBIN 25.2 pg (29.0-33.0); MEAN CORPUSCULAR HGB CONC 29.4 g/dl (32.0-37.0); MEAN CORPUSCULAR VOLUME 85.5 fl (82.0-101.0); MEAN PLATELET VOLUME 10.8 fl (7.4-10.4); MONOCYTE # 0.7 10^3/ul (0.3-0.9); MONOCYTES % 11.4 % (0.0-11.0); NEUTROPHIL # 4.2 10^3/ul (1.6-7.5); NUCLEATED RED BLOOD CELLS% 0.3 /100WBC (0.0-0.0); PLATELET COUNT 190 10^3/UL (140-415); RED BLOOD COUNT 4.21 10^6/ul (4.70-6.10); RED CELL DISTRIBUTION WIDTH 16.2 % (11.5-14.5)
[2018-07-14 07:22] LABS: WHITE BLOOD COUNT 6.4 10^3/ul (4.8-10.8)
[2018-07-14 07:54] LABS: ANION GAP 9 (8-16); BLOOD UREA NITROGEN 60 mg/dl (7-20); CALCIUM 9.3 mg/dl (8.4-10.2); CARBON DIOXIDE 30 mmol/L (21-31); CHLORIDE 106 mmol/L (97-110); CREATININE 0.99 mg/dl (0.61-1.24); GLUCOSE 213 mg/dl (70-220); POTASSIUM 5.3 mmol/L (3.5-5.1); SODIUM 140 mmol/L (135-144)
[2018-07-14] MEDS: INSULIN ASPART [NOVOLOG] 3 ML PEN SC ×7 (08:12→21:00)
[2018-07-14] MEDS: POLYETHYLENE GLYCOL 17 GM PACKET PO ×2 (09:00→21:00)
[2018-07-14] MEDS: FLUTICASONE/VILANTEROL 100-25 INH (09:33)
[2018-07-14] MEDS: COLLAGENASE 5 GM (UD JAR) TOP (09:34)
[2018-07-14] MEDS: GABAPENTIN 300 MG CAP PO ×3 (09:34→21:41)
[2018-07-14] MEDS: METHYLNALTREXONE 12 MG/0.6 ML VIAL SC (09:34)
[2018-07-14] MEDS: FAMOTIDINE 20 MG TAB PO ×2 (09:35→21:41)
[2018-07-14] MEDS: ISOSORBIDE DINITRATE 10 MG TAB PO (09:35)
[2018-07-14] MEDS: DULOXETINE 30 MG CAP DR PO (09:35)
[2018-07-14] MEDS: APIXABAN 5 MG TABLET PO ×2 (09:35→21:40)
[2018-07-14] MEDS: EMPAGLIFLOZIN 10 MG TABLET PO (09:35)
[2018-07-14] MEDS: METOPROLOL 25 MG TAB PO ×2 (09:36→21:42)
[2018-07-14] MEDS: BUMETANIDE 0.5 MG TAB PO (09:36)
[2018-07-14] MEDS: MULTIVITAMINS THERAPEUTIC TAB PO (09:36)
[2018-07-14] MEDS: ALPRAZOLAM 0.25 MG TAB PO (11:00)
[2018-07-14] MEDS: metFORMIN 850 MG TAB PO (17:07)
[2018-07-14] MEDS: ATORVASTATIN 40 MG TAB PO (21:40)
[2018-07-14] MEDS: INSULIN DETEMIR [LEVEMIR] (100 UNITS/ML) SYG SC (21:51)
[2018-07-15] MEDS: ACCU-CHEK XX (02:00)
[2018-07-15] MEDS: HYDROmorphONE 0.5 MG/0.5 ML SYG IV ×5 (02:16→21:37)
[2018-07-15] MEDS: COLLAGENASE 5 GM (UD JAR) TOP (02:20)
[2018-07-15] MEDS: [UNRECOGNIZED DRUG - OTHER] XX ×3 (06:00→21:42)
[2018-07-15] MEDS: DULOXETINE 30 MG CAP DR PO (07:50)
[2018-07-15] MEDS: EMPAGLIFLOZIN 10 MG TABLET PO (07:50)
[2018-07-15] MEDS: GABAPENTIN 300 MG CAP PO ×3 (07:50→14:57)
[2018-07-15] MEDS: APIXABAN 5 MG TABLET PO ×2 (07:50→20:42)
[2018-07-15] MEDS: METHYLNALTREXONE 12 MG/0.6 ML VIAL SC (07:51)
[2018-07-15] MEDS: FAMOTIDINE 20 MG TAB PO ×2 (07:51→20:42)
[2018-07-15] MEDS: METOPROLOL 25 MG TAB PO ×2 (07:51→20:42)
[2018-07-15] MEDS: POLYETHYLENE GLYCOL 17 GM PACKET PO ×2 (07:51→21:39)
[2018-07-15] MEDS: INSULIN ASPART [NOVOLOG] 3 ML PEN SC ×7 (07:52→20:44)
[2018-07-15] MEDS: FLUTICASONE/VILANTEROL 100-25 INH (07:59)
[2018-07-15] MEDS: MULTIVITAMINS THERAPEUTIC TAB PO (10:39)
[2018-07-15] MEDS: ISOSORBIDE MONONITRATE(SR)30 MG TAB PO (10:40)
[2018-07-15 10:53] LABS: ADD MAN DIFF? NO
[2018-07-15 11:02] LABS: BASOPHIL # 0.1 10^3/ul (0.0-0.1); BASOPHILS % 0.8 % (0.0-2.0); EOSINOPHILS # 0.5 10^3/ul (0.0-0.5); EOSINOPHILS % 5.9 % (0.0-7.0); HEMATOCRIT 35.8 % (42.0-52.0); HEMOGLOBIN 10.8 g/dl (14.0-18.0); LYMPHOCYTES # 1.7 10^3/ul (0.8-2.9); LYMPHOCYTES % 19.2 % (15.0-51.0); MEAN CORPUSCULAR HEMOGLOBIN 25.5 pg (29.0-33.0); MEAN CORPUSCULAR HGB CONC 30.2 g/dl (32.0-37.0); MEAN CORPUSCULAR VOLUME 84.4 fl (82.0-101.0); MEAN PLATELET VOLUME 11.1 fl (7.4-10.4); MONOCYTE # 0.8 10^3/ul (0.3-0.9); MONOCYTES % 8.9 % (0.0-11.0); NEUTROPHIL # 5.8 10^3/ul (1.6-7.5); NEUTROPHILS % 64.5 % (39.0-77.0); PLATELET COUNT 227 10^3/UL (140-415); RED BLOOD COUNT 4.24 10^6/ul (4.70-6.10); RED CELL DISTRIBUTION WIDTH 16.5 % (11.5-14.5)
[2018-07-15 11:14] LABS: ALANINE AMINOTRANSFERASE 54 IU/L (13-69); ALBUMIN 3.4 g/dl (3.3-4.9); ALKALINE PHOSPHATASE 264 IU/L (42-121); ASPARTATE AMINO TRANSFERASE 75 IU/L (15-46); BILIRUBIN,INDIRECT 0.9 mg/dl (0-1.1); BILIRUBIN,TOTAL 0.9 mg/dl (0.2-1.3); TOTAL PROTEIN 8.4 g/dl (6.1-8.1)
[2018-07-15 11:15] LABS: ANION GAP 12 (8-16); BLOOD UREA NITROGEN 59 mg/dl (7-20); CALCIUM 9.7 mg/dl (8.4-10.2); CARBON DIOXIDE 29 mmol/L (21-31); CHLORIDE 106 mmol/L (97-110); CREATININE 1.22 mg/dl (0.61-1.24); GLUCOSE 56 mg/dl (70-220); POTASSIUM 4.8 mmol/L (3.5-5.1); SODIUM 142 mmol/L (135-144)
[2018-07-15] MEDS: metFORMIN 850 MG TAB PO (17:16)
[2018-07-15] MEDS: ATORVASTATIN 40 MG TAB PO (20:42)
[2018-07-15] MEDS: INSULIN DETEMIR [LEVEMIR] (100 UNITS/ML) SYG SC (20:45)
[2018-07-16] MEDS: ACCU-CHEK XX (02:00)
[2018-07-16] MEDS: HYDROmorphONE 0.5 MG/0.5 ML SYG IV ×4 (04:19→21:53)
[2018-07-16] MEDS: [UNRECOGNIZED DRUG - OTHER] XX ×3 (05:41→22:00)
[2018-07-16 06:43] LABS: ADD MAN DIFF? NO
[2018-07-16 06:53] LABS: WHITE BLOOD COUNT 6.5 10^3/ul (4.8-10.8)
[2018-07-16 06:53] LABS: BASOPHIL # 0.1 10^3/ul (0.0-0.1); BASOPHILS % 0.8 % (0.0-2.0); EOSINOPHILS # 0.4 10^3/ul (0.0-0.5); EOSINOPHILS % 5.5 % (0.0-7.0); HEMATOCRIT 33.7 % (42.0-52.0); HEMOGLOBIN 10.1 g/dl (14.0-18.0); LYMPHOCYTES # 0.9 10^3/ul (0.8-2.9); LYMPHOCYTES % 13.6 % (15.0-51.0); MEAN CORPUSCULAR HEMOGLOBIN 25.5 pg (29.0-33.0); MEAN CORPUSCULAR VOLUME 85.1 fl (82.0-101.0); MEAN PLATELET VOLUME 11.3 fl (7.4-10.4); MONOCYTE # 0.6 10^3/ul (0.3-0.9); MONOCYTES % 9.1 % (0.0-11.0); NEUTROPHIL # 4.6 10^3/ul (1.6-7.5); NEUTROPHILS % 70.4 % (39.0-77.0); PLATELET COUNT 191 10^3/UL (140-415); RED BLOOD COUNT 3.96 10^6/ul (4.70-6.10); RED CELL DISTRIBUTION WIDTH 16.4 % (11.5-14.5)
[2018-07-16 07:13] LABS: ANION GAP 11 (8-16); BLOOD UREA NITROGEN 52 mg/dl (7-20); CALCIUM 9.5 mg/dl (8.4-10.2); CARBON DIOXIDE 30 mmol/L (21-31); CHLORIDE 107 mmol/L (97-110); GLUCOSE 91 mg/dl (70-220); SODIUM 143 mmol/L (135-144)
[2018-07-16] MEDS: INSULIN ASPART [NOVOLOG] 3 ML PEN SC ×6 (08:00→21:00)
[2018-07-16] MEDS: METHYLNALTREXONE 12 MG/0.6 ML VIAL SC (09:00)
[2018-07-16] MEDS: POLYETHYLENE GLYCOL 17 GM PACKET PO ×2 (09:00→21:00)
[2018-07-16] MEDS: MULTIVITAMINS THERAPEUTIC TAB PO (09:12)
[2018-07-16] MEDS: FLUTICASONE/VILANTEROL 100-25 INH (09:12)
[2018-07-16] MEDS: GABAPENTIN 300 MG CAP PO ×3 (09:12→21:49)
[2018-07-16] MEDS: FAMOTIDINE 20 MG TAB PO ×2 (09:13→21:51)
[2018-07-16] MEDS: ISOSORBIDE MONONITRATE(SR)30 MG TAB PO (09:13)
[2018-07-16] MEDS: APIXABAN 5 MG TABLET PO ×2 (09:13→21:50)
[2018-07-16] MEDS: EMPAGLIFLOZIN 10 MG TABLET PO (09:13)
[2018-07-16] MEDS: METOPROLOL 25 MG TAB PO ×2 (09:13→21:51)
[2018-07-16] MEDS: COLLAGENASE 5 GM (UD JAR) TOP (09:14)
[2018-07-16] MEDS: DULOXETINE 30 MG CAP DR PO (09:18)
[2018-07-16] MEDS: ALPRAZOLAM 0.25 MG TAB PO (10:13)
[2018-07-16] MEDS: metFORMIN 850 MG TAB PO (17:09)
[2018-07-16] MEDS: ATORVASTATIN 40 MG TAB PO (21:50)
[2018-07-16] MEDS: INSULIN DETEMIR [LEVEMIR] (100 UNITS/ML) SYG SC (21:53)
[2018-07-17] MEDS: HYDROmorphONE 0.5 MG/0.5 ML SYG IV ×3 (01:58→10:24)
[2018-07-17] MEDS: ACCU-CHEK XX (02:00)
[2018-07-17] MEDS: ALTEPLASE (CATHFLO) 2 MG INJ CATHETER (04:27)
[2018-07-17] MEDS: [UNRECOGNIZED DRUG - OTHER] XX ×3 (06:00→22:00)
[2018-07-17] MEDS: POLYETHYLENE GLYCOL 17 GM PACKET PO ×2 (09:00→21:00)
[2018-07-17] MEDS: INSULIN ASPART [NOVOLOG] 3 ML PEN SC ×7 (09:01→21:00)
[2018-07-17] MEDS: METHYLNALTREXONE 12 MG/0.6 ML VIAL SC (09:11)
[2018-07-17] MEDS: DULOXETINE 30 MG CAP DR PO (09:14)
[2018-07-17] MEDS: COLLAGENASE 5 GM (UD JAR) TOP (09:14)
[2018-07-17] MEDS: ISOSORBIDE MONONITRATE(SR)30 MG TAB PO (09:14)
[2018-07-17] MEDS: MULTIVITAMINS THERAPEUTIC TAB PO (09:15)
[2018-07-17] MEDS: METOPROLOL 25 MG TAB PO ×2 (09:15→21:34)
[2018-07-17] MEDS: GABAPENTIN 300 MG CAP PO (09:15)
[2018-07-17] MEDS: FAMOTIDINE 20 MG TAB PO ×2 (09:15→21:33)
[2018-07-17] MEDS: APIXABAN 5 MG TABLET PO ×2 (09:15→21:33)
[2018-07-17] MEDS: EMPAGLIFLOZIN 10 MG TABLET PO (09:16)
[2018-07-17] MEDS: FLUTICASONE/VILANTEROL 100-25 INH (09:16)
[2018-07-17] MEDS: BUMETANIDE 0.5 MG TAB PO (09:31)
[2018-07-17] MEDS: HYDROmorphONE 2 MG/ML SYG IV (17:09)
[2018-07-17] MEDS: metFORMIN 850 MG TAB PO (17:42)
[2018-07-17 18:20] LABS: ADD MAN DIFF? NO
[2018-07-17 18:23] LABS: BASOPHIL # 0.1 10^3/ul (0.0-0.1); BASOPHILS % 0.7 % (0.0-2.0); EOSINOPHILS # 0.3 10^3/ul (0.0-0.5); HEMATOCRIT 34.6 % (42.0-52.0); HEMOGLOBIN 10.6 g/dl (14.0-18.0); LYMPHOCYTES # 1.2 10^3/ul (0.8-2.9); LYMPHOCYTES % 15.3 % (15.0-51.0); MEAN CORPUSCULAR HEMOGLOBIN 25.8 pg (29.0-33.0); MEAN CORPUSCULAR HGB CONC 30.6 g/dl (32.0-37.0); MEAN CORPUSCULAR VOLUME 84.2 fl (82.0-101.0); MEAN PLATELET VOLUME 10.7 fl (7.4-10.4); MONOCYTE # 0.8 10^3/ul (0.3-0.9); MONOCYTES % 10.4 % (0.0-11.0); NEUTROPHIL # 5.2 10^3/ul (1.6-7.5); NEUTROPHILS % 69.2 % (39.0-77.0); PLATELET COUNT 214 10^3/UL (140-415); RED BLOOD COUNT 4.11 10^6/ul (4.70-6.10); RED CELL DISTRIBUTION WIDTH 16.7 % (11.5-14.5)
[2018-07-17 18:23] LABS: WHITE BLOOD COUNT 7.5 10^3/ul (4.8-10.8)
[2018-07-17 18:42] LABS: ANION GAP 13 (8-16); BLOOD UREA NITROGEN 48 mg/dl (7-20); CALCIUM 9.6 mg/dl (8.4-10.2); CARBON DIOXIDE 28 mmol/L (21-31); CHLORIDE 104 mmol/L (97-110); CREATININE 1.11 mg/dl (0.61-1.24); GLUCOSE 223 mg/dl (70-220); POTASSIUM 4.9 mmol/L (3.5-5.1); SODIUM 140 mmol/L (135-144)
[2018-07-17] MEDS: ATORVASTATIN 40 MG TAB PO (21:33)
[2018-07-17] MEDS: GABAPENTIN 400 MG CAP PO (21:33)
[2018-07-17] MEDS: INSULIN DETEMIR [LEVEMIR] (100 UNITS/ML) SYG SC (21:35)
[2018-07-18] MEDS: HYDROmorphONE 2 MG/ML SYG IV ×2 (00:48→07:48)
[2018-07-18] MEDS: ACCU-CHEK XX (02:00)
[2018-07-18] MEDS: [UNRECOGNIZED DRUG - OTHER] XX ×3 (05:30→22:00)
[2018-07-18] MEDS: INSULIN ASPART [NOVOLOG] 3 ML PEN SC ×8 (08:00→21:16)
[2018-07-18] MEDS: MULTIVITAMINS THERAPEUTIC TAB PO (12:05)
[2018-07-18] MEDS: FLUTICASONE/VILANTEROL 100-25 INH (12:05)
[2018-07-18] MEDS: FAMOTIDINE 20 MG TAB PO ×2 (12:06→21:14)
[2018-07-18] MEDS: METOPROLOL 25 MG TAB PO ×2 (12:06→21:00)
[2018-07-18] MEDS: ISOSORBIDE MONONITRATE(SR)30 MG TAB PO (12:07)
[2018-07-18] MEDS: APIXABAN 5 MG TABLET PO ×2 (12:07→21:14)
[2018-07-18] MEDS: DULOXETINE 30 MG CAP DR PO (12:07)
[2018-07-18] MEDS: COLLAGENASE 5 GM (UD JAR) TOP (12:07)
[2018-07-18] MEDS: EMPAGLIFLOZIN 10 MG TABLET PO (12:07)
[2018-07-18] MEDS: ESCITALOPRAM 10 MG TAB PO (12:08)
[2018-07-18] MEDS: POLYETHYLENE GLYCOL 17 GM PACKET PO ×3 (12:08→21:14)
[2018-07-18] MEDS: GABAPENTIN 400 MG CAP PO ×3 (12:10→21:15)
[2018-07-18] MEDS: metFORMIN 850 MG TAB PO (17:31)
[2018-07-18] MEDS: ATORVASTATIN 40 MG TAB PO (21:12)
[2018-07-18] MEDS: INSULIN DETEMIR [LEVEMIR] (100 UNITS/ML) SYG SC (21:17)
[2018-07-18] MEDS: HYDROmorphONE 1 MG/ML SYG IV (22:03)
[2018-07-19] MEDS: ACCU-CHEK XX (02:00)
[2018-07-19] MEDS: HYDROmorphONE 1 MG/ML SYG IV ×3 (04:58→18:30)
[2018-07-19] MEDS: [UNRECOGNIZED DRUG - OTHER] XX ×3 (06:00→22:00)
[2018-07-19 07:16] LABS: ALANINE AMINOTRANSFERASE 41 IU/L (13-69); ALBUMIN 3.2 g/dl (3.3-4.9); ALBUMIN/GLOBULIN RATIO 0.62; ALKALINE PHOSPHATASE 235 IU/L (42-121); ANION GAP 10 (8-16); ASPARTATE AMINO TRANSFERASE 43 IU/L (15-46); BLOOD UREA NITROGEN 56 mg/dl (7-20); CALCIUM 9.2 mg/dl (8.4-10.2); CARBON DIOXIDE 30 mmol/L (21-31); CHLORIDE 107 mmol/L (97-110); CREATININE 1.17 mg/dl (0.61-1.24); GLUCOSE 105 mg/dl (70-220); POTASSIUM 4.6 mmol/L (3.5-5.1); SODIUM 142 mmol/L (135-144); TOTAL PROTEIN 8.3 g/dl (6.1-8.1)
[2018-07-19] MEDS: INSULIN ASPART [NOVOLOG] 3 ML PEN SC ×7 (08:00→20:11)
[2018-07-19] MEDS: POLYETHYLENE GLYCOL 17 GM PACKET PO ×2 (08:04→20:11)
[2018-07-19] MEDS: FLUTICASONE/VILANTEROL 100-25 INH (08:04)
[2018-07-19] MEDS: COLLAGENASE 5 GM (UD JAR) TOP (08:06)
[2018-07-19] MEDS: FAMOTIDINE 20 MG TAB PO ×2 (08:07→20:12)
[2018-07-19] MEDS: DULOXETINE 30 MG CAP DR PO (08:07)
[2018-07-19] MEDS: ISOSORBIDE MONONITRATE(SR)30 MG TAB PO (08:07)
[2018-07-19] MEDS: ESCITALOPRAM 10 MG TAB PO (08:07)
[2018-07-19] MEDS: MULTIVITAMINS THERAPEUTIC TAB PO (08:07)
[2018-07-19] MEDS: EMPAGLIFLOZIN 10 MG TABLET PO (08:08)
[2018-07-19] MEDS: METOPROLOL 25 MG TAB PO ×2 (08:08→20:14)
[2018-07-19] MEDS: GABAPENTIN 400 MG CAP PO ×3 (08:09→20:14)
[2018-07-19] MEDS: APIXABAN 5 MG TABLET PO ×2 (08:14→20:14)
[2018-07-19] MEDS: ALPRAZOLAM 0.25 MG TAB PO ×2 (09:28→23:56)
[2018-07-19] MEDS: metFORMIN 850 MG TAB PO (17:16)
[2018-07-19] MEDS: ATORVASTATIN 40 MG TAB PO (20:12)
[2018-07-19] MEDS: INSULIN DETEMIR [LEVEMIR] (100 UNITS/ML) SYG SC (20:16)
[2018-07-20] MEDS: HYDROmorphONE 1 MG/ML SYG IV ×2 (00:24→06:18)
[2018-07-20] MEDS: ALBUTEROL/IPRATROPIUM (NEB) 3 ML AMP HHN (00:29)
[2018-07-20] MEDS: ACCU-CHEK XX (01:51)
[2018-07-20] MEDS: [UNRECOGNIZED DRUG - OTHER] XX (05:46)
[2018-07-20] MEDS: EMPAGLIFLOZIN 10 MG TABLET PO (08:33)
[2018-07-20] MEDS: FAMOTIDINE 20 MG TAB PO ×2 (08:34→20:37)
[2018-07-20] MEDS: DULOXETINE 30 MG CAP DR PO (08:34)
[2018-07-20] MEDS: GABAPENTIN 400 MG CAP PO ×4 (08:34→20:37)
[2018-07-20] MEDS: BUMETANIDE 0.5 MG TAB PO (08:34)
[2018-07-20] MEDS: ISOSORBIDE MONONITRATE(SR)30 MG TAB PO (08:35)
[2018-07-20] MEDS: ESCITALOPRAM 10 MG TAB PO (08:35)
[2018-07-20] MEDS: METOPROLOL 25 MG TAB PO ×2 (08:35→20:39)
[2018-07-20] MEDS: APIXABAN 5 MG TABLET PO ×2 (08:36→20:37)
[2018-07-20] MEDS: MULTIVITAMINS THERAPEUTIC TAB PO (08:36)
[2018-07-20] MEDS: FLUTICASONE/VILANTEROL 100-25 INH (08:36)
[2018-07-20] MEDS: INSULIN ASPART [NOVOLOG] 3 ML PEN SC ×7 (08:37→20:38)
[2018-07-20] MEDS: COLLAGENASE 5 GM (UD JAR) TOP (08:39)
[2018-07-20] MEDS: POLYETHYLENE GLYCOL 17 GM PACKET PO ×2 (08:39→20:46)
[2018-07-20] MEDS: ALPRAZOLAM 0.25 MG TAB PO (18:00)
[2018-07-20] MEDS: metFORMIN 850 MG TAB PO (18:00)
[2018-07-20 18:55] LABS: ANION GAP 8 (5-13); BLOOD UREA NITROGEN 56 mg/dl (7-20); CALCIUM 9.1 mg/dl (8.4-10.2); CARBON DIOXIDE 28 mmol/L (21-31); CHLORIDE 105 mmol/L (97-110); CREATININE 1.02 mg/dl (0.61-1.24); GLUCOSE 58 mg/dl (70-220); POTASSIUM 4.4 mmol/L (3.5-5.1); SODIUM 141 mmol/L (135-144)
[2018-07-20] MEDS: ATORVASTATIN 40 MG TAB PO (20:37)
[2018-07-20] MEDS: INSULIN DETEMIR [LEVEMIR] (100 UNITS/ML) SYG SC (20:38)
[2018-07-20] MEDS: OXYCODONE/ACETAMINOPHEN (5/325) TAB PO (20:51)
[2018-07-20] MEDS: ONDANSETRON 4 MG INJ IV (20:51)
[2018-07-21] MEDS: ACCU-CHEK XX (02:00)
[2018-07-21] MEDS: ONDANSETRON 4 MG INJ IV (05:19)
[2018-07-21] MEDS: OXYCODONE/ACETAMINOPHEN (5/325) TAB PO (05:19)
[2018-07-21] MEDS: INSULIN ASPART [NOVOLOG] 3 ML PEN SC ×7 (08:00→21:00)
[2018-07-21] MEDS: EMPAGLIFLOZIN 10 MG TABLET PO (08:54)
[2018-07-21] MEDS: FAMOTIDINE 20 MG TAB PO ×2 (08:55→23:24)
[2018-07-21] MEDS: ESCITALOPRAM 10 MG TAB PO (08:55)
[2018-07-21] MEDS: METOPROLOL 25 MG TAB PO ×2 (08:56→23:24)
[2018-07-21] MEDS: GABAPENTIN 400 MG CAP PO ×4 (08:57→23:23)
[2018-07-21] MEDS: APIXABAN 5 MG TABLET PO ×2 (08:57→23:22)
[2018-07-21] MEDS: ISOSORBIDE MONONITRATE(SR)30 MG TAB PO (08:57)
[2018-07-21] MEDS: MULTIVITAMINS THERAPEUTIC TAB PO (08:57)
[2018-07-21] MEDS: BUMETANIDE 0.5 MG TAB PO (08:57)
[2018-07-21] MEDS: COLLAGENASE 5 GM (UD JAR) TOP (09:01)
[2018-07-21] MEDS: POLYETHYLENE GLYCOL 17 GM PACKET PO ×2 (09:02→21:00)
[2018-07-21] MEDS: FLUTICASONE/VILANTEROL 100-25 INH (09:02)
[2018-07-21] MEDS: DULOXETINE 30 MG CAP DR PO (09:03)
[2018-07-21] MEDS: HYDROmorphONE 1 MG/ML SYG IV ×3 (10:36→23:25)
[2018-07-21 11:03] LABS: ADD MAN DIFF? NO
[2018-07-21 11:05] LABS: WHITE BLOOD COUNT 5.6 10^3/ul (4.8-10.8)
[2018-07-21 11:05] LABS: BASOPHILS % 0.5 % (0.0-2.0); EOSINOPHILS # 0.2 10^3/ul (0.0-0.5); EOSINOPHILS % 3.6 % (0.0-7.0); HEMATOCRIT 37.3 % (42.0-52.0); HEMOGLOBIN 11.1 g/dl (14.0-18.0); LYMPHOCYTES # 0.8 10^3/ul (0.8-2.9); LYMPHOCYTES % 14.1 % (15.0-51.0); MEAN CORPUSCULAR HEMOGLOBIN 25.5 pg (29.0-33.0); MEAN CORPUSCULAR HGB CONC 29.8 g/dl (32.0-37.0); MEAN CORPUSCULAR VOLUME 85.7 fl (82.0-101.0); MEAN PLATELET VOLUME 11.1 fl (7.4-10.4); MONOCYTE # 0.5 10^3/ul (0.3-0.9); MONOCYTES % 9.3 % (0.0-11.0); PLATELET COUNT 203 10^3/UL (140-415); RED BLOOD COUNT 4.35 10^6/ul (4.70-6.10)
[2018-07-21 11:23] LABS: ANION GAP 4 (5-13); BLOOD UREA NITROGEN 56 mg/dl (7-20); CALCIUM 9.5 mg/dl (8.4-10.2); CARBON DIOXIDE 34 mmol/L (21-31); CHLORIDE 105 mmol/L (97-110); CREATININE 1.31 mg/dl (0.61-1.24); GLUCOSE 220 mg/dl (70-220); POTASSIUM 5.1 mmol/L (3.5-5.1); SODIUM 143 mmol/L (135-144)
[2018-07-21] MEDS: metFORMIN 850 MG TAB PO (17:24)
[2018-07-21] MEDS: INSULIN DETEMIR [LEVEMIR] (100 UNITS/ML) SYG SC (20:51)
[2018-07-21] MEDS: ATORVASTATIN 40 MG TAB PO (23:23)
[2018-07-22] MEDS: ACCU-CHEK XX (02:00)
[2018-07-22] MEDS: HYDROmorphONE 1 MG/ML SYG IV ×2 (05:46→10:57)
[2018-07-22] MEDS: INSULIN ASPART [NOVOLOG] 3 ML PEN SC ×7 (08:00→20:34)
[2018-07-22] MEDS: MULTIVITAMINS THERAPEUTIC TAB PO (08:21)
[2018-07-22] MEDS: DULOXETINE 30 MG CAP DR PO (08:21)
[2018-07-22] MEDS: GABAPENTIN 400 MG CAP PO ×3 (08:21→20:33)
[2018-07-22] MEDS: EMPAGLIFLOZIN 10 MG TABLET PO (08:21)
[2018-07-22] MEDS: FAMOTIDINE 20 MG TAB PO ×2 (08:21→20:34)
[2018-07-22] MEDS: BUMETANIDE 0.5 MG TAB PO (08:21)
[2018-07-22] MEDS: APIXABAN 5 MG TABLET PO ×2 (08:21→20:33)
[2018-07-22] MEDS: ESCITALOPRAM 10 MG TAB PO (08:21)
[2018-07-22] MEDS: ISOSORBIDE MONONITRATE(SR)30 MG TAB PO (08:21)
[2018-07-22] MEDS: POLYETHYLENE GLYCOL 17 GM PACKET PO ×2 (08:22→20:34)
[2018-07-22] MEDS: METOPROLOL 25 MG TAB PO ×2 (08:22→20:33)
[2018-07-22] MEDS: COLLAGENASE 5 GM (UD JAR) TOP (08:26)
[2018-07-22] MEDS: FLUTICASONE/VILANTEROL 100-25 INH (09:00)
[2018-07-22] MEDS: metFORMIN 850 MG TAB PO (17:28)
[2018-07-22] MEDS: ATORVASTATIN 40 MG TAB PO (20:33)
[2018-07-22] MEDS: INSULIN DETEMIR [LEVEMIR] (100 UNITS/ML) SYG SC (20:35)
[2018-07-23] MEDS: HYDROmorphONE 1 MG/ML SYG IV ×2 (01:27→09:19)
[2018-07-23] MEDS: ACCU-CHEK XX (02:00)
[2018-07-23] MEDS: ALPRAZOLAM 0.25 MG TAB PO (04:26)
[2018-07-23] MEDS: INSULIN ASPART [NOVOLOG] 3 ML PEN SC ×7 (08:53→21:00)
[2018-07-23] MEDS: POLYETHYLENE GLYCOL 17 GM PACKET PO ×2 (08:55→21:03)
[2018-07-23] MEDS: EMPAGLIFLOZIN 10 MG TABLET PO (08:56)
[2018-07-23] MEDS: DULOXETINE 30 MG CAP DR PO (08:56)
[2018-07-23] MEDS: APIXABAN 5 MG TABLET PO ×2 (08:57→21:03)
[2018-07-23] MEDS: METOPROLOL 25 MG TAB PO ×2 (08:57→21:03)
[2018-07-23] MEDS: ESCITALOPRAM 10 MG TAB PO (08:57)
[2018-07-23] MEDS: BUMETANIDE 0.5 MG TAB PO (08:57)
[2018-07-23] MEDS: FAMOTIDINE 20 MG TAB PO ×2 (08:57→21:03)
[2018-07-23] MEDS: MULTIVITAMINS THERAPEUTIC TAB PO (08:57)
[2018-07-23] MEDS: GABAPENTIN 400 MG CAP PO ×3 (08:58→21:03)
[2018-07-23] MEDS: ISOSORBIDE MONONITRATE(SR)30 MG TAB PO (08:58)
[2018-07-23] MEDS: COLLAGENASE 5 GM (UD JAR) TOP (08:58)
[2018-07-23] MEDS: FLUTICASONE/VILANTEROL 100-25 INH (13:12)
[2018-07-23] MEDS: metFORMIN 850 MG TAB PO (17:31)
[2018-07-23] MEDS: HYDROmorphONE 0.5 MG/0.5 ML SYG IV ×2 (17:49→23:53)
[2018-07-23] MEDS: ATORVASTATIN 40 MG TAB PO (21:03)
[2018-07-23] MEDS: INSULIN DETEMIR [LEVEMIR] (100 UNITS/ML) SYG SC (21:12)
[2018-07-24] MEDS: ACCU-CHEK XX (02:00)
[2018-07-24] MEDS ORDERED: ACCU-CHEK XX (02:00)
[2018-07-24] MEDS: HYDROmorphONE 0.5 MG/0.5 ML SYG IV ×3 (06:27→22:19)
[2018-07-24 06:57] LABS: ADD MAN DIFF? NO
[2018-07-24 07:02] LABS: WHITE BLOOD COUNT 8.8 10^3/ul (4.8-10.8)
[2018-07-24 07:02] LABS: BASOPHIL # 0.1 10^3/ul (0.0-0.1); BASOPHILS % 0.6 % (0.0-2.0); EOSINOPHILS # 0.3 10^3/ul (0.0-0.5); EOSINOPHILS % 3.5 % (0.0-7.0); HEMATOCRIT 36.5 % (42.0-52.0); HEMOGLOBIN 10.9 g/dl (14.0-18.0); LYMPHOCYTES # 1.5 10^3/ul (0.8-2.9); MEAN CORPUSCULAR HEMOGLOBIN 25.5 pg (29.0-33.0); MEAN CORPUSCULAR HGB CONC 29.9 g/dl (32.0-37.0); MEAN CORPUSCULAR VOLUME 85.3 fl (82.0-101.0); MEAN PLATELET VOLUME 10.7 fl (7.4-10.4); MONOCYTE # 0.9 10^3/ul (0.3-0.9); MONOCYTES % 10.3 % (0.0-11.0); PLATELET COUNT 252 10^3/UL (140-415); RED BLOOD COUNT 4.28 10^6/ul (4.70-6.10); RED CELL DISTRIBUTION WIDTH 16.4 % (11.5-14.5)
[2018-07-24 07:25] LABS: ANION GAP 7 (5-13); BLOOD UREA NITROGEN 64 mg/dl (7-20); CALCIUM 9.3 mg/dl (8.4-10.2); CARBON DIOXIDE 30 mmol/L (21-31); CHLORIDE 104 mmol/L (97-110); CREATININE 1.23 mg/dl (0.61-1.24); GLUCOSE 57 mg/dl (70-220); POTASSIUM 4.7 mmol/L (3.5-5.1); SODIUM 141 mmol/L (135-144)
[2018-07-24] MEDS: INSULIN ASPART [NOVOLOG] 3 ML PEN SC ×7 (08:00→21:00)
[2018-07-24] MEDS: POLYETHYLENE GLYCOL 17 GM PACKET PO ×2 (08:55→21:23)
[2018-07-24] MEDS: BUMETANIDE 0.5 MG TAB PO (08:55)
[2018-07-24] MEDS: FLUTICASONE/VILANTEROL 100-25 INH (08:55)
[2018-07-24] MEDS: ISOSORBIDE MONONITRATE(SR)30 MG TAB PO (08:57)
[2018-07-24] MEDS: GABAPENTIN 400 MG CAP PO ×3 (08:57→21:24)
[2018-07-24] MEDS: APIXABAN 5 MG TABLET PO ×2 (08:57→21:24)
[2018-07-24] MEDS: FAMOTIDINE 20 MG TAB PO ×2 (08:57→21:23)
[2018-07-24] MEDS: DULOXETINE 30 MG CAP DR PO (08:58)
[2018-07-24] MEDS: METOPROLOL 25 MG TAB PO ×2 (08:58→21:24)
[2018-07-24] MEDS: COLLAGENASE 5 GM (UD JAR) TOP (08:58)
[2018-07-24] MEDS: MULTIVITAMINS THERAPEUTIC TAB PO (08:58)
[2018-07-24] MEDS: ESCITALOPRAM 10 MG TAB PO (08:58)
[2018-07-24] MEDS: EMPAGLIFLOZIN 10 MG TABLET PO (09:04)
[2018-07-24] MEDS: metFORMIN 850 MG TAB PO (17:44)
[2018-07-24] MEDS: ATORVASTATIN 40 MG TAB PO (21:24)
[2018-07-24] MEDS: INSULIN DETEMIR [LEVEMIR] (100 UNITS/ML) SYG SC (21:36)
[2018-07-25] MEDS: ACCU-CHEK XX (02:00)
[2018-07-25] MEDS: HYDROmorphONE 0.5 MG/0.5 ML SYG IV ×4 (05:08→21:27)
[2018-07-25] MEDS: POLYETHYLENE GLYCOL 17 GM PACKET PO ×3 (09:00→20:10)
[2018-07-25] MEDS: BUMETANIDE 0.5 MG TAB PO (10:02)
[2018-07-25] MEDS: MULTIVITAMINS THERAPEUTIC TAB PO (10:03)
[2018-07-25] MEDS: ISOSORBIDE MONONITRATE(SR)30 MG TAB PO (10:03)
[2018-07-25] MEDS: FLUTICASONE/VILANTEROL 100-25 INH (10:03)
[2018-07-25] MEDS: ESCITALOPRAM 10 MG TAB PO (10:03)
[2018-07-25] MEDS: GABAPENTIN 400 MG CAP PO ×3 (10:04→20:08)
[2018-07-25] MEDS: DULOXETINE 30 MG CAP DR PO (10:04)
[2018-07-25] MEDS: EMPAGLIFLOZIN 10 MG TABLET PO (10:04)
[2018-07-25] MEDS: FAMOTIDINE 20 MG TAB PO ×2 (10:04→20:08)
[2018-07-25] MEDS: METOPROLOL 25 MG TAB PO ×2 (10:05→20:07)
[2018-07-25] MEDS: COLLAGENASE 5 GM (UD JAR) TOP (10:06)
[2018-07-25] MEDS: APIXABAN 5 MG TABLET PO ×2 (10:06→20:08)
[2018-07-25] MEDS: INSULIN ASPART [NOVOLOG] 3 ML PEN SC ×7 (10:08→20:06)
[2018-07-25] MEDS: metFORMIN 850 MG TAB PO (17:06)
[2018-07-25] MEDS: ATORVASTATIN 40 MG TAB PO (20:07)
[2018-07-25] MEDS: INSULIN DETEMIR [LEVEMIR] (100 UNITS/ML) SYG SC (20:09)
[2018-07-25] MEDS: ALBUTEROL/IPRATROPIUM (NEB) 3 ML AMP HHN (22:41)
[2018-07-26] MEDS: ACCU-CHEK XX (01:39)
[2018-07-26] MEDS: HYDROmorphONE 0.5 MG/0.5 ML SYG IV ×2 (03:36→09:39)
[2018-07-26] MEDS: ALPRAZOLAM 0.25 MG TAB PO (07:32)
[2018-07-26 08:48] LABS: ADD MAN DIFF? NO
[2018-07-26] MEDS: DULOXETINE 30 MG CAP DR PO (08:53)
[2018-07-26] MEDS: EMPAGLIFLOZIN 10 MG TABLET PO (08:53)
[2018-07-26] MEDS: FLUTICASONE/VILANTEROL 100-25 INH (08:53)
[2018-07-26] MEDS: BUMETANIDE 0.5 MG TAB PO (08:54)
[2018-07-26] MEDS: ESCITALOPRAM 10 MG TAB PO (08:54)
[2018-07-26] MEDS: METOPROLOL 25 MG TAB PO (08:55)
[2018-07-26] MEDS: GABAPENTIN 400 MG CAP PO ×3 (08:55→20:19)
[2018-07-26] MEDS: FAMOTIDINE 20 MG TAB PO ×2 (08:55→20:20)
[2018-07-26] MEDS: MULTIVITAMINS THERAPEUTIC TAB PO (08:55)
[2018-07-26] MEDS: APIXABAN 5 MG TABLET PO ×2 (08:55→20:19)
[2018-07-26] MEDS: ISOSORBIDE MONONITRATE(SR)30 MG TAB PO (08:55)
[2018-07-26] MEDS: COLLAGENASE 5 GM (UD JAR) TOP (08:56)
[2018-07-26 08:57] LABS: WHITE BLOOD COUNT 6.6 10^3/ul (4.8-10.8)
[2018-07-26 08:57] LABS: BASOPHILS % 0.6 % (0.0-2.0); EOSINOPHILS # 0.3 10^3/ul (0.0-0.5); EOSINOPHILS % 4.5 % (0.0-7.0); HEMATOCRIT 35.6 % (42.0-52.0); HEMOGLOBIN 10.6 g/dl (14.0-18.0); LYMPHOCYTES # 0.8 10^3/ul (0.8-2.9); LYMPHOCYTES % 12.4 % (15.0-51.0); MEAN CORPUSCULAR HEMOGLOBIN 25.5 pg (29.0-33.0); MEAN CORPUSCULAR HGB CONC 29.8 g/dl (32.0-37.0); MEAN CORPUSCULAR VOLUME 85.6 fl (82.0-101.0); MEAN PLATELET VOLUME 10.9 fl (7.4-10.4); MONOCYTE # 0.7 10^3/ul (0.3-0.9); MONOCYTES % 10.5 % (0.0-11.0); NEUTROPHIL # 4.7 10^3/ul (1.6-7.5); NEUTROPHILS % 71.4 % (39.0-77.0); PLATELET COUNT 226 10^3/UL (140-415); RED BLOOD COUNT 4.16 10^6/ul (4.70-6.10)
[2018-07-26] MEDS: INSULIN ASPART [NOVOLOG] 3 ML PEN SC ×7 (08:57→21:00)
[2018-07-26] MEDS: POLYETHYLENE GLYCOL 17 GM PACKET PO ×2 (08:58→20:20)
[2018-07-26 09:15] LABS: ALANINE AMINOTRANSFERASE 25 IU/L (13-69); ALBUMIN 3.2 g/dl (3.3-4.9); ALBUMIN/GLOBULIN RATIO 0.64; ALKALINE PHOSPHATASE 221 IU/L (42-121); ANION GAP 8 (5-13); ASPARTATE AMINO TRANSFERASE 44 IU/L (15-46); BILIRUBIN,INDIRECT 0.6 mg/dl (0-1.1); BILIRUBIN,TOTAL 0.6 mg/dl (0.2-1.3); BLOOD UREA NITROGEN 57 mg/dl (7-20); CALCIUM 9.1 mg/dl (8.4-10.2); CARBON DIOXIDE 29 mmol/L (21-31); CHLORIDE 103 mmol/L (97-110); CREATININE 1.21 mg/dl (0.61-1.24); Estimated GFR > 60 mL/min (>60); GLUCOSE 167 mg/dl (70-220); SODIUM 140 mmol/L (135-144); TOTAL PROTEIN 8.2 g/dl (6.1-8.1)
[2018-07-26 09:16] LABS: POTASSIUM 4.8 mmol/L (3.5-5.1)
[2018-07-26] MEDS: METOPROLOL 50 MG TAB PO ×2 (14:48→20:20)
[2018-07-26] MEDS: DIGOXIN 500 MCG INJ IV (14:49)
[2018-07-26] MEDS: metFORMIN 850 MG TAB PO (17:48)
[2018-07-26] MEDS: ACETAMINOPHEN 325 MG TAB PO (19:25)
[2018-07-26] MEDS: INSULIN DETEMIR [LEVEMIR] (100 UNITS/ML) SYG SC (20:00)
[2018-07-26] MEDS: ATORVASTATIN 40 MG TAB PO (20:19)
[2018-07-26] MEDS: GLUCOSE GEL 15 GRAM TUBE PO (20:21)
[2018-07-26] MEDS ORDERED: METOPROLOL 50 MG TAB PO (21:00)
[2018-07-26 21:49] LABS: GLUCOSE 150 mg/dl (70-220)
[2018-07-27] MEDS: ACCU-CHEK XX (01:32)
[2018-07-27] MEDS: HYDROmorphONE 0.5 MG/0.5 ML SYG IV ×5 (03:01→23:10)
[2018-07-27] MEDS: ALBUTEROL/IPRATROPIUM (NEB) 3 ML AMP HHN ×3 (03:31→23:22)
[2018-07-27 08:23] LABS: ADD MAN DIFF? NO
[2018-07-27 08:25] LABS: BASOPHILS % 0.5 % (0.0-2.0); EOSINOPHILS # 0.2 10^3/ul (0.0-0.5); EOSINOPHILS % 3.2 % (0.0-7.0); HEMATOCRIT 37.1 % (42.0-52.0); LYMPHOCYTES # 0.7 10^3/ul (0.8-2.9); LYMPHOCYTES % 11.8 % (15.0-51.0); MEAN CORPUSCULAR HEMOGLOBIN 25.6 pg (29.0-33.0); MEAN CORPUSCULAR HGB CONC 29.6 g/dl (32.0-37.0); MEAN CORPUSCULAR VOLUME 86.3 fl (82.0-101.0); MEAN PLATELET VOLUME 10.8 fl (7.4-10.4); MONOCYTE # 0.6 10^3/ul (0.3-0.9); MONOCYTES % 9.7 % (0.0-11.0); NEUTROPHIL # 4.4 10^3/ul (1.6-7.5); NEUTROPHILS % 74.3 % (39.0-77.0); PLATELET COUNT 210 10^3/UL (140-415); RED CELL DISTRIBUTION WIDTH 16.9 % (11.5-14.5)
[2018-07-27 08:25] LABS: WHITE BLOOD COUNT 5.9 10^3/ul (4.8-10.8)
[2018-07-27] MEDS: BUMETANIDE 0.5 MG TAB PO (08:29)
[2018-07-27] MEDS: ESCITALOPRAM 10 MG TAB PO (08:30)
[2018-07-27] MEDS: MULTIVITAMINS THERAPEUTIC TAB PO (08:30)
[2018-07-27] MEDS: FAMOTIDINE 20 MG TAB PO ×2 (08:31→20:26)
[2018-07-27] MEDS: GABAPENTIN 400 MG CAP PO ×3 (08:31→20:26)
[2018-07-27] MEDS: APIXABAN 5 MG TABLET PO ×2 (08:31→20:26)
[2018-07-27] MEDS: ISOSORBIDE MONONITRATE(SR)30 MG TAB PO (08:31)
[2018-07-27] MEDS: METOPROLOL 50 MG TAB PO ×2 (08:33→20:30)
[2018-07-27] MEDS: EMPAGLIFLOZIN 10 MG TABLET PO (08:33)
[2018-07-27] MEDS: DULOXETINE 30 MG CAP DR PO (08:33)
[2018-07-27] MEDS: POLYETHYLENE GLYCOL 17 GM PACKET PO ×2 (08:34→20:31)
[2018-07-27] MEDS: FLUTICASONE/VILANTEROL 100-25 INH (08:34)
[2018-07-27] MEDS: INSULIN ASPART [NOVOLOG] 3 ML PEN SC ×7 (08:35→20:32)
[2018-07-27] MEDS: COLLAGENASE 5 GM (UD JAR) TOP (08:36)
[2018-07-27 08:39] LABS: ANION GAP 9 (5-13); BLOOD UREA NITROGEN 54 mg/dl (7-20); CALCIUM 8.9 mg/dl (8.4-10.2); CARBON DIOXIDE 30 mmol/L (21-31); CHLORIDE 102 mmol/L (97-110); CREATININE 1.13 mg/dl (0.61-1.24); Estimated GFR > 60 mL/min (>60); GLUCOSE 209 mg/dl (70-220); POTASSIUM 4.9 mmol/L (3.5-5.1); SODIUM 141 mmol/L (135-144)
[2018-07-27] MEDS: metFORMIN 850 MG TAB PO (17:10)
[2018-07-27] MEDS: INSULIN DETEMIR [LEVEMIR] (100 UNITS/ML) SYG SC (20:00)
[2018-07-27] MEDS: ATORVASTATIN 40 MG TAB PO (20:26)
[2018-07-27] MEDS: BUMETANIDE 1 MG INJ IV (22:34)
[2018-07-28] MEDS: ACCU-CHEK XX (02:00)
[2018-07-28] MEDS: HYDROmorphONE 0.5 MG/0.5 ML SYG IV ×4 (03:28→22:44)
[2018-07-28] MEDS: ALPRAZOLAM 0.25 MG TAB PO ×2 (05:19→22:46)
[2018-07-28 08:22] LABS: ADD UMIC YES; UR ASCORBIC ACID NEGATIVE (NEGATIVE); UR BACTERIA FEW /HPF (NONE SEEN); UR BILIRUBIN (Dip) NEGATIVE (NEGATIVE); UR BLOOD (Dip) NEGATIVE (NEGATIVE); UR BUDDING YEAST MANY /HPF (NONE SEEN); UR CLARITY CLOUDY (CLEAR); UR COLOR YELLOW (YELLOW); UR GLUCOSE (Dip) 3+ mg/dL (NEGATIVE); UR KETONES (Dip) NEGATIVE (NEGATIVE); UR LEUKOCYTE ESTERASE (Dip) 3+ Leu/ul (NEGATIVE); UR NITRITE (Dip) NEGATIVE (NEGATIVE); UR RBC 74 /HPF (0-5); UR SPECIFIC GRAVITY (Dip) 1.011 (1.003-1.030); UR SQUAMOUS EPITHELIAL CELL FEW /HPF (FEW); UR TOTAL PROTEIN (Dip) NEGATIVE (NEGATIVE); UR UROBILINOGEN (Dip) NEGATIVE (NEGATIVE); UR WBC 178 /HPF (0-5)
[2018-07-28] MEDS: EMPAGLIFLOZIN 10 MG TABLET PO (08:33)
[2018-07-28] MEDS: INSULIN ASPART [NOVOLOG] 3 ML PEN SC ×7 (08:34→22:49)
[2018-07-28] MEDS: METOPROLOL 50 MG TAB PO ×3 (08:36→22:47)
[2018-07-28] MEDS: POLYETHYLENE GLYCOL 17 GM PACKET PO ×2 (09:00→22:47)
[2018-07-28] MEDS: FLUTICASONE/VILANTEROL 100-25 INH (10:26)
[2018-07-28] MEDS: COLLAGENASE 5 GM (UD JAR) TOP (10:27)
[2018-07-28] MEDS: FAMOTIDINE 20 MG TAB PO ×2 (10:33→22:46)
[2018-07-28] MEDS: DULOXETINE 30 MG CAP DR PO (10:33)
[2018-07-28] MEDS: APIXABAN 5 MG TABLET PO ×2 (10:33→22:46)
[2018-07-28] MEDS: MULTIVITAMINS THERAPEUTIC TAB PO (10:34)
[2018-07-28] MEDS: ESCITALOPRAM 10 MG TAB PO (10:34)
[2018-07-28] MEDS: GABAPENTIN 400 MG CAP PO ×3 (10:34→22:46)
[2018-07-28] MEDS: ISOSORBIDE MONONITRATE(SR)30 MG TAB PO (10:34)
[2018-07-28] MEDS ORDERED: DILTIAZEM 25 MG INJ IV (11:30)
[2018-07-28 12:18] LABS: ADD MAN DIFF? NO
[2018-07-28] MEDS: DIGOXIN 500 MCG INJ IV (12:23)
[2018-07-28] MEDS: BUMETANIDE 0.5 MG TAB PO (12:23)
[2018-07-28 12:25] LABS: WHITE BLOOD COUNT 6.5 10^3/ul (4.8-10.8)
[2018-07-28 12:25] LABS: BASOPHILS % 0.6 % (0.0-2.0); EOSINOPHILS # 0.2 10^3/ul (0.0-0.5); EOSINOPHILS % 2.6 % (0.0-7.0); HEMATOCRIT 34.4 % (42.0-52.0); HEMOGLOBIN 10.3 g/dl (14.0-18.0); LYMPHOCYTES # 0.8 10^3/ul (0.8-2.9); LYMPHOCYTES % 12.1 % (15.0-51.0); MEAN CORPUSCULAR HEMOGLOBIN 25.6 pg (29.0-33.0); MEAN CORPUSCULAR HGB CONC 29.9 g/dl (32.0-37.0); MEAN CORPUSCULAR VOLUME 85.6 fl (82.0-101.0); MEAN PLATELET VOLUME 10.7 fl (7.4-10.4); MONOCYTE # 0.8 10^3/ul (0.3-0.9); MONOCYTES % 12.1 % (0.0-11.0); NEUTROPHIL # 4.7 10^3/ul (1.6-7.5); NEUTROPHILS % 72.1 % (39.0-77.0); PLATELET COUNT 195 10^3/UL (140-415); RED BLOOD COUNT 4.02 10^6/ul (4.70-6.10); RED CELL DISTRIBUTION WIDTH 16.8 % (11.5-14.5)
[2018-07-28 12:36] LABS: ANION GAP 8 (5-13); BLOOD UREA NITROGEN 54 mg/dl (7-20); CALCIUM 8.8 mg/dl (8.4-10.2); CARBON DIOXIDE 30 mmol/L (21-31); CHLORIDE 102 mmol/L (97-110); CREATININE 1.25 mg/dl (0.61-1.24); Estimated GFR 58 mL/min (>60); GLUCOSE 227 mg/dl (70-220); SODIUM 140 mmol/L (135-144)
[2018-07-28 12:39] LABS: POTASSIUM 4.8 mmol/L (3.5-5.1)
[2018-07-28] MEDS: metFORMIN 850 MG TAB PO (17:34)
[2018-07-28] MEDS: ATORVASTATIN 40 MG TAB PO (22:46)
[2018-07-28] MEDS: INSULIN DETEMIR [LEVEMIR] (100 UNITS/ML) SYG SC (22:54)
[2018-07-29] MEDS: ACCU-CHEK XX (01:01)
[2018-07-29] MEDS: HYDROmorphONE 0.5 MG/0.5 ML SYG IV ×5 (05:07→23:47)
[2018-07-29] MEDS: METOPROLOL 50 MG TAB PO ×3 (05:09→21:43)
[2018-07-29] MEDS: INSULIN ASPART [NOVOLOG] 3 ML PEN SC ×7 (07:44→21:50)
[2018-07-29] MEDS: POLYETHYLENE GLYCOL 17 GM PACKET PO ×2 (09:00→21:52)
[2018-07-29] MEDS: DULOXETINE 30 MG CAP DR PO (09:11)
[2018-07-29] MEDS: GABAPENTIN 400 MG CAP PO ×3 (09:11→21:42)
[2018-07-29] MEDS: BUMETANIDE 0.5 MG TAB PO (09:11)
[2018-07-29] MEDS: MULTIVITAMINS THERAPEUTIC TAB PO (09:11)
[2018-07-29] MEDS: FLUTICASONE/VILANTEROL 100-25 INH (09:11)
[2018-07-29] MEDS: APIXABAN 5 MG TABLET PO ×2 (09:11→21:44)
[2018-07-29] MEDS: COLLAGENASE 5 GM (UD JAR) TOP (09:11)
[2018-07-29] MEDS: ESCITALOPRAM 10 MG TAB PO (09:11)
[2018-07-29] MEDS: FAMOTIDINE 20 MG TAB PO ×2 (09:11→21:42)
[2018-07-29] MEDS: EMPAGLIFLOZIN 10 MG TABLET PO (09:11)
[2018-07-29] MEDS: ISOSORBIDE MONONITRATE(SR)30 MG TAB PO (09:12)
[2018-07-29 11:07] LABS: ADD MAN DIFF? NO
[2018-07-29 11:10] LABS: BASOPHILS % 0.5 % (0.0-2.0); EOSINOPHILS # 0.2 10^3/ul (0.0-0.5); EOSINOPHILS % 2.7 % (0.0-7.0); HEMATOCRIT 35.9 % (42.0-52.0); HEMOGLOBIN 10.4 g/dl (14.0-18.0); LYMPHOCYTES # 0.7 10^3/ul (0.8-2.9); LYMPHOCYTES % 10.6 % (15.0-51.0); MEAN CORPUSCULAR HEMOGLOBIN 25.1 pg (29.0-33.0); MEAN CORPUSCULAR VOLUME 86.7 fl (82.0-101.0); MEAN PLATELET VOLUME 11.1 fl (7.4-10.4); MONOCYTE # 0.6 10^3/ul (0.3-0.9); MONOCYTES % 8.5 % (0.0-11.0); NEUTROPHIL # 5.1 10^3/ul (1.6-7.5); NEUTROPHILS % 76.9 % (39.0-77.0); PLATELET COUNT 216 10^3/UL (140-415); RED BLOOD COUNT 4.14 10^6/ul (4.70-6.10); RED CELL DISTRIBUTION WIDTH 16.6 % (11.5-14.5)
[2018-07-29 11:10] LABS: WHITE BLOOD COUNT 6.6 10^3/ul (4.8-10.8)
[2018-07-29 11:32] LABS: ANION GAP 8 (5-13); BLOOD UREA NITROGEN 59 mg/dl (7-20); CALCIUM 9.1 mg/dl (8.4-10.2); CARBON DIOXIDE 32 mmol/L (21-31); CHLORIDE 102 mmol/L (97-110); CREATININE 1.38 mg/dl (0.61-1.24); Estimated GFR 52 mL/min (>60); GLUCOSE 162 mg/dl (70-220); MAGNESIUM 2.4 mg/dl (1.7-2.5); POTASSIUM 5.1 mmol/L (3.5-5.1); SODIUM 142 mmol/L (135-144)
[2018-07-29] MEDS: metFORMIN 850 MG TAB PO (17:42)
[2018-07-29] MEDS ORDERED: FUROSEMIDE 40 MG INJ IV (20:00)
[2018-07-29] MEDS: ATORVASTATIN 40 MG TAB PO (21:43)
[2018-07-29] MEDS: INSULIN DETEMIR [LEVEMIR] (100 UNITS/ML) SYG SC (21:46)
[2018-07-30] MEDS: ACCU-CHEK XX (02:19)
[2018-07-30] MEDS: GLUCOSE GEL 15 GRAM TUBE PO ×2 (02:28→02:59)
[2018-07-30] MEDS: HYDROmorphONE 0.5 MG/0.5 ML SYG IV ×4 (06:49→21:39)
[2018-07-30 07:01] LABS: ADD MAN DIFF? NO
[2018-07-30] MEDS: METOPROLOL 50 MG TAB PO ×3 (07:08→21:28)
[2018-07-30 07:10] LABS: BASOPHILS % 0.3 % (0.0-2.0); EOSINOPHILS # 0.4 10^3/ul (0.0-0.5); EOSINOPHILS % 4.3 % (0.0-7.0); HEMATOCRIT 39.3 % (42.0-52.0); HEMOGLOBIN 11.4 g/dl (14.0-18.0); LYMPHOCYTES # 1.8 10^3/ul (0.8-2.9); LYMPHOCYTES % 21.1 % (15.0-51.0); MEAN CORPUSCULAR HEMOGLOBIN 25.6 pg (29.0-33.0); MEAN CORPUSCULAR VOLUME 88.1 fl (82.0-101.0); MEAN PLATELET VOLUME 10.6 fl (7.4-10.4); MONOCYTE # 0.8 10^3/ul (0.3-0.9); MONOCYTES % 9.6 % (0.0-11.0); NEUTROPHIL # 5.6 10^3/ul (1.6-7.5); NEUTROPHILS % 64.2 % (39.0-77.0); PLATELET COUNT 213 10^3/UL (140-415); RED BLOOD COUNT 4.46 10^6/ul (4.70-6.10); RED CELL DISTRIBUTION WIDTH 16.8 % (11.5-14.5)
[2018-07-30 07:10] LABS: WHITE BLOOD COUNT 8.7 10^3/ul (4.8-10.8)
[2018-07-30] MEDS: metFORMIN 500 MG TAB PO (07:55)
[2018-07-30] MEDS ORDERED: metFORMIN 500 MG TAB PO (07:55)
[2018-07-30] MEDS: INSULIN ASPART [NOVOLOG] 3 ML PEN SC ×7 (07:55→21:00)
[2018-07-30] MEDS: EMPAGLIFLOZIN 10 MG TABLET PO (08:00)
[2018-07-30] MEDS: DEXTROSE 50% 50 ML SYRINGE IV (08:06)
[2018-07-30 09:04] LABS: ANION GAP 10 (5-13); BLOOD UREA NITROGEN 54 mg/dl (7-20); CALCIUM 9.1 mg/dl (8.4-10.2); CARBON DIOXIDE 35 mmol/L (21-31); CHLORIDE 102 mmol/L (97-110); CREATININE 1.51 mg/dl (0.61-1.24); Estimated GFR 47 mL/min (>60); POTASSIUM 3.7 mmol/L (3.5-5.1); SODIUM 147 mmol/L (135-144)
[2018-07-30 09:10] LABS: GLUCOSE 41 mg/dl (70-220)
[2018-07-30] MEDS: FAMOTIDINE 20 MG TAB PO ×2 (09:14→21:21)
[2018-07-30] MEDS: GABAPENTIN 400 MG CAP PO ×3 (09:14→21:21)
[2018-07-30] MEDS: ESCITALOPRAM 10 MG TAB PO (09:14)
[2018-07-30] MEDS: MULTIVITAMINS THERAPEUTIC TAB PO (09:14)
[2018-07-30] MEDS: ISOSORBIDE MONONITRATE(SR)30 MG TAB PO (09:16)
[2018-07-30] MEDS: DULOXETINE 30 MG CAP DR PO (09:16)
[2018-07-30] MEDS: COLLAGENASE 5 GM (UD JAR) TOP (09:16)
[2018-07-30] MEDS: BUMETANIDE 0.5 MG TAB PO (09:16)
[2018-07-30] MEDS: APIXABAN 5 MG TABLET PO ×2 (09:16→21:21)
[2018-07-30] MEDS: FLUTICASONE/VILANTEROL 100-25 INH (09:17)
[2018-07-30] MEDS: POLYETHYLENE GLYCOL 17 GM PACKET PO ×2 (09:17→21:21)
[2018-07-30] MEDS: CHLORDIAZEPOXIDE/CLIDINIUM CAP PO ×2 (17:45→21:21)
[2018-07-30] MEDS: INSULIN DETEMIR [LEVEMIR] (100 UNITS/ML) SYG SC (21:23)
[2018-07-30] MEDS: ATORVASTATIN 40 MG TAB PO (21:27)
[2018-07-31] MEDS: HYDROmorphONE 0.5 MG/0.5 ML SYG IV ×5 (01:52→20:32)
[2018-07-31] MEDS: ACCU-CHEK XX (02:00)
[2018-07-31] MEDS: ALPRAZOLAM 0.25 MG TAB PO ×2 (05:46→23:39)
[2018-07-31] MEDS: METOPROLOL 50 MG TAB PO ×3 (05:47→23:39)
[2018-07-31] MEDS: INSULIN ASPART [NOVOLOG] 3 ML PEN SC ×7 (07:55→21:00)
[2018-07-31] MEDS: metFORMIN 500 MG TAB PO (07:55)
[2018-07-31] MEDS: EMPAGLIFLOZIN 10 MG TABLET PO (08:00)
[2018-07-31] MEDS: POLYETHYLENE GLYCOL 17 GM PACKET PO ×2 (09:00→21:00)
[2018-07-31] MEDS: COLLAGENASE 5 GM (UD JAR) TOP (09:08)
[2018-07-31] MEDS: GABAPENTIN 400 MG CAP PO ×3 (09:09→20:23)
[2018-07-31] MEDS: MULTIVITAMINS THERAPEUTIC TAB PO (09:09)
[2018-07-31] MEDS: ESCITALOPRAM 10 MG TAB PO (09:09)
[2018-07-31] MEDS: CHLORDIAZEPOXIDE/CLIDINIUM CAP PO ×4 (09:09→20:23)
[2018-07-31] MEDS: DULOXETINE 30 MG CAP DR PO (09:09)
[2018-07-31] MEDS: FAMOTIDINE 20 MG TAB PO ×2 (09:09→20:23)
[2018-07-31] MEDS: APIXABAN 5 MG TABLET PO ×2 (09:10→20:23)
[2018-07-31] MEDS: ISOSORBIDE MONONITRATE(SR)30 MG TAB PO (09:11)
[2018-07-31] MEDS: BUMETANIDE 0.5 MG TAB PO (09:11)
[2018-07-31] MEDS: FLUTICASONE/VILANTEROL 100-25 INH (09:12)
[2018-07-31] MEDS: ALBUTEROL/IPRATROPIUM (NEB) 3 ML AMP HHN ×3 (10:02→21:00)
[2018-07-31 15:01] LABS: ADD MAN DIFF? NO
[2018-07-31 15:03] LABS: BASOPHILS % 0.5 % (0.0-2.0); EOSINOPHILS # 0.3 10^3/ul (0.0-0.5); HEMATOCRIT 35.2 % (42.0-52.0); HEMOGLOBIN 10.3 g/dl (14.0-18.0); LYMPHOCYTES # 0.8 10^3/ul (0.8-2.9); LYMPHOCYTES % 12.4 % (15.0-51.0); MEAN CORPUSCULAR HEMOGLOBIN 25.4 pg (29.0-33.0); MEAN CORPUSCULAR HGB CONC 29.3 g/dl (32.0-37.0); MEAN CORPUSCULAR VOLUME 86.9 fl (82.0-101.0); MEAN PLATELET VOLUME 10.7 fl (7.4-10.4); MONOCYTE # 0.7 10^3/ul (0.3-0.9); MONOCYTES % 10.1 % (0.0-11.0); NEUTROPHIL # 4.6 10^3/ul (1.6-7.5); NEUTROPHILS % 71.5 % (39.0-77.0); PLATELET COUNT 153 10^3/UL (140-415); RED BLOOD COUNT 4.05 10^6/ul (4.70-6.10); RED CELL DISTRIBUTION WIDTH 16.5 % (11.5-14.5)
[2018-07-31 15:03] LABS: WHITE BLOOD COUNT 6.4 10^3/ul (4.8-10.8)
[2018-07-31 15:31] LABS: ALANINE AMINOTRANSFERASE 22 IU/L (13-69); ALBUMIN 3.1 g/dl (3.3-4.9); ALBUMIN/GLOBULIN RATIO 0.65; ALKALINE PHOSPHATASE 159 IU/L (42-121); AMYLASE 73 U/L (11-123); ANION GAP 8 (5-13); ASPARTATE AMINO TRANSFERASE 34 IU/L (15-46); BILIRUBIN,INDIRECT 0.7 mg/dl (0-1.1); BILIRUBIN,TOTAL 0.7 mg/dl (0.2-1.3); BLOOD UREA NITROGEN 49 mg/dl (7-20); CARBON DIOXIDE 30 mmol/L (21-31); CHLORIDE 105 mmol/L (97-110); CREATININE 1.21 mg/dl (0.61-1.24); Estimated GFR > 60 mL/min (>60); GLUCOSE 175 mg/dl (70-220); POTASSIUM 4.6 mmol/L (3.5-5.1); SODIUM 143 mmol/L (135-144); TOTAL PROTEIN 7.8 g/dl (6.1-8.1)
[2018-07-31] MEDS: ATORVASTATIN 40 MG TAB PO (20:23)
[2018-07-31] MEDS: INSULIN DETEMIR [LEVEMIR] (100 UNITS/ML) SYG SC (20:46)
[2018-08-01] MEDS: ACCU-CHEK XX (01:34)
[2018-08-01] MEDS: HYDROmorphONE 0.5 MG/0.5 ML SYG IV ×3 (01:39→14:31)
[2018-08-01] MEDS: ALBUTEROL/IPRATROPIUM (NEB) 3 ML AMP HHN (05:39)
[2018-08-01] MEDS: METOPROLOL 50 MG TAB PO ×3 (06:23→22:11)
[2018-08-01] MEDS: INSULIN ASPART [NOVOLOG] 3 ML PEN SC ×7 (07:55→21:00)
[2018-08-01] MEDS: EMPAGLIFLOZIN 10 MG TABLET PO (08:27)
[2018-08-01] MEDS: BUMETANIDE 0.5 MG TAB PO (08:27)
[2018-08-01] MEDS: FAMOTIDINE 20 MG TAB PO ×2 (08:27→22:08)
[2018-08-01] MEDS: ESCITALOPRAM 10 MG TAB PO (08:27)
[2018-08-01] MEDS: DULOXETINE 30 MG CAP DR PO (08:27)
[2018-08-01] MEDS: GABAPENTIN 400 MG CAP PO ×3 (08:27→22:08)
[2018-08-01] MEDS: CHLORDIAZEPOXIDE/CLIDINIUM CAP PO ×4 (08:27→22:08)
[2018-08-01] MEDS: metFORMIN 500 MG TAB PO (08:28)
[2018-08-01] MEDS: APIXABAN 5 MG TABLET PO ×2 (08:28→22:08)
[2018-08-01] MEDS: ISOSORBIDE MONONITRATE(SR)30 MG TAB PO (08:29)
[2018-08-01] MEDS: MULTIVITAMINS THERAPEUTIC TAB PO (08:29)
[2018-08-01] MEDS: POLYETHYLENE GLYCOL 17 GM PACKET PO ×2 (08:30→22:10)
[2018-08-01] MEDS: FLUTICASONE/VILANTEROL 100-25 INH (08:34)
[2018-08-01] MEDS: COLLAGENASE 5 GM (UD JAR) TOP (08:34)
[2018-08-01] MEDS: INSULIN DETEMIR [LEVEMIR] (100 UNITS/ML) SYG SC (22:06)
[2018-08-01] MEDS: ATORVASTATIN 40 MG TAB PO (22:08)
[2018-08-02] MEDS: ACCU-CHEK XX (02:00)
[2018-08-02] MEDS: METOPROLOL 50 MG TAB PO ×3 (05:30→21:09)
[2018-08-02] MEDS: HYDROmorphONE 0.5 MG/0.5 ML SYG IV ×4 (05:52→19:57)
[2018-08-02] MEDS: CHLORDIAZEPOXIDE/CLIDINIUM CAP PO ×4 (07:00→21:00)
[2018-08-02 07:40] LABS: ADD MAN DIFF? NO
[2018-08-02 07:44] LABS: ABNORMAL IP MESSAGE 1; BASOPHILS % 0.6 % (0.0-2.0); EOSINOPHILS # 0.3 10^3/ul (0.0-0.5); EOSINOPHILS % 3.8 % (0.0-7.0); HEMOGLOBIN 10.6 g/dl (14.0-18.0); LYMPHOCYTES # 0.6 10^3/ul (0.8-2.9); LYMPHOCYTES % 8.1 % (15.0-51.0); MEAN CORPUSCULAR HEMOGLOBIN 25.4 pg (29.0-33.0); MEAN CORPUSCULAR HGB CONC 29.4 g/dl (32.0-37.0); MEAN CORPUSCULAR VOLUME 86.3 fl (82.0-101.0); MEAN PLATELET VOLUME 10.7 fl (7.4-10.4); MONOCYTE # 0.7 10^3/ul (0.3-0.9); MONOCYTES % 10.4 % (0.0-11.0); NEUTROPHIL # 5.4 10^3/ul (1.6-7.5); NEUTROPHILS % 76.7 % (39.0-77.0); PLATELET COUNT 156 10^3/UL (140-415); POSITIVE DIFF @See below; RED BLOOD COUNT 4.17 10^6/ul (4.70-6.10); RED CELL DISTRIBUTION WIDTH 16.7 % (11.5-14.5)
[2018-08-02 07:44] LABS: WHITE BLOOD COUNT 7.1 10^3/ul (4.8-10.8)
[2018-08-02] MEDS: INSULIN ASPART [NOVOLOG] 3 ML PEN SC ×7 (08:00→20:01)
[2018-08-02] MEDS: metFORMIN 500 MG TAB PO (08:00)
[2018-08-02] MEDS: EMPAGLIFLOZIN 10 MG TABLET PO (08:00)
[2018-08-02 08:01] LABS: ANION GAP 5 (5-13); BLOOD UREA NITROGEN 43 mg/dl (7-20); CALCIUM 8.8 mg/dl (8.4-10.2); CARBON DIOXIDE 33 mmol/L (21-31); CHLORIDE 108 mmol/L (97-110); CREATININE 1.07 mg/dl (0.61-1.24); Estimated GFR > 60 mL/min (>60); GLUCOSE 56 mg/dl (70-220); POTASSIUM 4.3 mmol/L (3.5-5.1); SODIUM 146 mmol/L (135-144)
[2018-08-02] MEDS: POLYETHYLENE GLYCOL 17 GM PACKET PO ×2 (09:00→21:00)
[2018-08-02] MEDS: COLLAGENASE 5 GM (UD JAR) TOP (09:14)
[2018-08-02] MEDS: GABAPENTIN 400 MG CAP PO ×3 (09:14→21:07)
[2018-08-02] MEDS: APIXABAN 5 MG TABLET PO ×2 (09:14→21:07)
[2018-08-02] MEDS: BUMETANIDE 0.5 MG TAB PO (09:14)
[2018-08-02] MEDS: DULOXETINE 30 MG CAP DR PO (09:14)
[2018-08-02] MEDS: FAMOTIDINE 20 MG TAB PO ×2 (09:14→21:07)
[2018-08-02] MEDS: ISOSORBIDE MONONITRATE(SR)30 MG TAB PO (09:14)
[2018-08-02] MEDS: ESCITALOPRAM 10 MG TAB PO (09:14)
[2018-08-02] MEDS: MULTIVITAMINS THERAPEUTIC TAB PO (09:14)
[2018-08-02] MEDS: FLUTICASONE/VILANTEROL 100-25 INH (11:01)
[2018-08-02] MEDS: INSULIN DETEMIR [LEVEMIR] (100 UNITS/ML) SYG SC (20:03)
[2018-08-02] MEDS: ATORVASTATIN 40 MG TAB PO (21:07)
[2018-08-03] MEDS: ALBUTEROL/IPRATROPIUM (NEB) 3 ML AMP HHN (00:34)
[2018-08-03] MEDS: HYDROmorphONE 0.5 MG/0.5 ML SYG IV ×5 (01:02→22:15)
[2018-08-03] MEDS: ACCU-CHEK XX (02:00)
[2018-08-03] MEDS: METOPROLOL 50 MG TAB PO ×3 (06:01→21:27)
[2018-08-03] MEDS: MULTIVITAMINS THERAPEUTIC TAB PO (09:36)
[2018-08-03] MEDS: COLLAGENASE 5 GM (UD JAR) TOP (09:36)
[2018-08-03] MEDS: EMPAGLIFLOZIN 10 MG TABLET PO (09:36)
[2018-08-03] MEDS: metFORMIN 500 MG TAB PO (09:36)
[2018-08-03] MEDS: POLYETHYLENE GLYCOL 17 GM PACKET PO ×2 (09:37→21:00)
[2018-08-03] MEDS: BUMETANIDE 0.5 MG TAB PO (09:37)
[2018-08-03] MEDS: ESCITALOPRAM 10 MG TAB PO (09:37)
[2018-08-03] MEDS: APIXABAN 5 MG TABLET PO ×2 (09:37→21:28)
[2018-08-03] MEDS: DULOXETINE 30 MG CAP DR PO (09:37)
[2018-08-03] MEDS: GABAPENTIN 400 MG CAP PO ×3 (09:38→21:27)
[2018-08-03] MEDS: FLUTICASONE/VILANTEROL 100-25 INH (09:38)
[2018-08-03] MEDS: ISOSORBIDE MONONITRATE(SR)30 MG TAB PO (09:39)
[2018-08-03] MEDS: INSULIN ASPART [NOVOLOG] 3 ML PEN SC ×6 (09:39→21:00)
[2018-08-03] MEDS: FAMOTIDINE 20 MG TAB PO ×2 (09:45→21:27)
[2018-08-03] MEDS: CHLORDIAZEPOXIDE/CLIDINIUM CAP PO ×5 (10:33→21:26)
[2018-08-03] MEDS: DIGOXIN 0.125 MG TAB PO (13:04)
[2018-08-03] MEDS: ALPRAZOLAM 0.25 MG TAB PO (14:24)
[2018-08-03] MEDS: ATORVASTATIN 40 MG TAB PO (21:27)
[2018-08-03] MEDS: INSULIN DETEMIR [LEVEMIR] (100 UNITS/ML) SYG SC (21:37)
[2018-08-04] MEDS: ACCU-CHEK XX (02:00)
[2018-08-04] MEDS: HYDROmorphONE 0.5 MG/0.5 ML SYG IV ×4 (03:02→20:31)
[2018-08-04] MEDS: METOPROLOL 50 MG TAB PO ×3 (06:04→22:37)
[2018-08-04] MEDS: CHLORDIAZEPOXIDE/CLIDINIUM CAP PO ×4 (06:04→20:34)
[2018-08-04] MEDS: metFORMIN 500 MG TAB PO (07:16)
[2018-08-04] MEDS: INSULIN ASPART [NOVOLOG] 3 ML PEN SC ×7 (07:52→20:39)
[2018-08-04] MEDS: EMPAGLIFLOZIN 10 MG TABLET PO (08:00)
[2018-08-04] MEDS: BUMETANIDE 0.5 MG TAB PO (09:26)
[2018-08-04] MEDS: DULOXETINE 30 MG CAP DR PO (09:26)
[2018-08-04] MEDS: FLUTICASONE/VILANTEROL 100-25 INH (09:26)
[2018-08-04] MEDS: APIXABAN 5 MG TABLET PO ×2 (09:27→20:33)
[2018-08-04] MEDS: FAMOTIDINE 20 MG TAB PO ×2 (09:28→20:34)
[2018-08-04] MEDS: GABAPENTIN 400 MG CAP PO ×3 (09:28→20:34)
[2018-08-04] MEDS: COLLAGENASE 5 GM (UD JAR) TOP (09:28)
[2018-08-04] MEDS: ISOSORBIDE MONONITRATE(SR)30 MG TAB PO (09:28)
[2018-08-04] MEDS: ESCITALOPRAM 10 MG TAB PO (09:28)
[2018-08-04] MEDS: POLYETHYLENE GLYCOL 17 GM PACKET PO ×2 (09:28→20:34)
[2018-08-04] MEDS: MULTIVITAMINS THERAPEUTIC TAB PO (09:28)
[2018-08-04] MEDS: DEXTROSE 50% 50 ML SYRINGE IV (11:20)
[2018-08-04] MEDS: DIGOXIN 0.125 MG TAB PO (13:06)
[2018-08-04 14:40] LABS: GLUCOSE 179 mg/dl (70-220)
[2018-08-04] MEDS: MAGNESIUM CITRATE 300 ML BTL PO (18:04)
[2018-08-04] MEDS: ATORVASTATIN 40 MG TAB PO (20:33)
[2018-08-04] MEDS: INSULIN DETEMIR [LEVEMIR] (100 UNITS/ML) SYG SC (20:58)
[2018-08-05] MEDS: HYDROmorphONE 0.5 MG/0.5 ML SYG IV ×5 (00:22→22:34)
[2018-08-05] MEDS: ALBUTEROL/IPRATROPIUM (NEB) 3 ML AMP HHN ×2 (01:42→09:39)
[2018-08-05] MEDS: ACCU-CHEK XX (02:42)
[2018-08-05] MEDS: METOPROLOL 50 MG TAB PO ×3 (06:04→22:11)
[2018-08-05] MEDS: CHLORDIAZEPOXIDE/CLIDINIUM CAP PO ×4 (06:07→20:30)
[2018-08-05 06:17] LABS: ADD MAN DIFF? NO
[2018-08-05 06:28] LABS: BASOPHILS % 0.6 % (0.0-2.0); EOSINOPHILS # 0.2 10^3/ul (0.0-0.5); EOSINOPHILS % 3.8 % (0.0-7.0); HEMATOCRIT 37.3 % (42.0-52.0); HEMOGLOBIN 10.8 g/dl (14.0-18.0); LYMPHOCYTES # 0.8 10^3/ul (0.8-2.9); LYMPHOCYTES % 14.5 % (15.0-51.0); MEAN CORPUSCULAR VOLUME 86.3 fl (82.0-101.0); MEAN PLATELET VOLUME 10.8 fl (7.4-10.4); MONOCYTE # 0.5 10^3/ul (0.3-0.9); MONOCYTES % 9.8 % (0.0-11.0); NEUTROPHIL # 3.8 10^3/ul (1.6-7.5); NEUTROPHILS % 70.9 % (39.0-77.0); PLATELET COUNT 152 10^3/UL (140-415); RED BLOOD COUNT 4.32 10^6/ul (4.70-6.10); RED CELL DISTRIBUTION WIDTH 16.1 % (11.5-14.5)
[2018-08-05 06:28] LABS: WHITE BLOOD COUNT 5.3 10^3/ul (4.8-10.8)
[2018-08-05 06:46] LABS: DIGOXIN 0.8 ng/ml (1.0-2.0)
[2018-08-05 06:46] LABS: ANION GAP 7 (5-13); BLOOD UREA NITROGEN 44 mg/dl (7-20); CARBON DIOXIDE 32 mmol/L (21-31); CHLORIDE 106 mmol/L (97-110); CREATININE 1.13 mg/dl (0.61-1.24); Estimated GFR > 60 mL/min (>60); GLUCOSE 107 mg/dl (70-220); POTASSIUM 4.5 mmol/L (3.5-5.1); SODIUM 145 mmol/L (135-144)
[2018-08-05] MEDS: INSULIN ASPART [NOVOLOG] 3 ML PEN SC ×7 (07:36→20:30)
[2018-08-05] MEDS: GABAPENTIN 400 MG CAP PO ×3 (08:47→20:30)
[2018-08-05] MEDS: metFORMIN 500 MG TAB PO (08:47)
[2018-08-05] MEDS: COLLAGENASE 5 GM (UD JAR) TOP (08:48)
[2018-08-05] MEDS: ALPRAZOLAM 0.25 MG TAB PO (08:48)
[2018-08-05] MEDS: MULTIVITAMINS THERAPEUTIC TAB PO (08:48)
[2018-08-05] MEDS: DULOXETINE 20 MG CAP DR PO (08:48)
[2018-08-05] MEDS: ISOSORBIDE MONONITRATE(SR)30 MG TAB PO (08:48)
[2018-08-05] MEDS: APIXABAN 5 MG TABLET PO (08:48)
[2018-08-05] MEDS: BUMETANIDE 0.5 MG TAB PO (08:48)
[2018-08-05] MEDS: POLYETHYLENE GLYCOL 17 GM PACKET PO ×2 (08:48→20:30)
[2018-08-05] MEDS: EMPAGLIFLOZIN 10 MG TABLET PO (08:48)
[2018-08-05] MEDS: ESCITALOPRAM 10 MG TAB PO (08:48)
[2018-08-05] MEDS: FLUTICASONE/VILANTEROL 100-25 INH (08:51)
[2018-08-05 10:33] LABS: AMYLASE 87 U/L (11-123)
[2018-08-05 10:33] LABS: LIPASE 55 U/L (23-300)
[2018-08-05] MEDS: DIGOXIN 0.125 MG TAB PO (12:22)
[2018-08-05] MEDS: SENNA TAB PO (18:06)
[2018-08-05] MEDS: ATORVASTATIN 40 MG TAB PO (20:30)
[2018-08-05] MEDS: FAMOTIDINE 20 MG TAB PO (20:30)
[2018-08-05] MEDS: INSULIN DETEMIR [LEVEMIR] (100 UNITS/ML) SYG SC (20:32)
[2018-08-06] MEDS: ACCU-CHEK XX (01:14)
[2018-08-06] MEDS: CHLORDIAZEPOXIDE/CLIDINIUM CAP PO ×2 (06:15→11:30)
[2018-08-06] MEDS: METOPROLOL 50 MG TAB PO ×3 (06:15→21:10)
[2018-08-06] MEDS: DEXTROSE 50% 50 ML SYRINGE IV (07:42)
[2018-08-06] MEDS: INSULIN ASPART [NOVOLOG] 3 ML PEN SC ×7 (08:00→21:00)
[2018-08-06 08:52] LABS: AADO2 Arterial 93.2 mmHg (7.0-24.0); Allen Test ACCEPTAB; Arterial Base Excess 4.4 mmol/L (-3.0-3); Arterial Blood Gas Oxygen Sat 92.3 mmHG (95.0-98.0); Arterial COHb 1.6 % (0.0-3.0); Arterial Fraction of Oxyhgb 90.5 % (93.0-99.0); Arterial HCO3 30.1 mmol/L (22.0-26.0); Arterial MetHb 0.3 % (0.0-1.5); Arterial Total Hemglobin 11.9 g/dl (12.0-18.0); Arterial pCO2 49.7 mmhg (35-45); MODE NASAL CANNULA; Site Right Radial
[2018-08-06] MEDS: COLLAGENASE 5 GM (UD JAR) TOP (09:00)
[2018-08-06] MEDS: EMPAGLIFLOZIN 10 MG TABLET PO (09:17)
[2018-08-06] MEDS: DULOXETINE 20 MG CAP DR PO (09:17)
[2018-08-06] MEDS: MULTIVITAMINS THERAPEUTIC TAB PO (09:17)
[2018-08-06] MEDS: ESCITALOPRAM 10 MG TAB PO (09:17)
[2018-08-06] MEDS: ISOSORBIDE MONONITRATE(SR)30 MG TAB PO (09:17)
[2018-08-06] MEDS: GABAPENTIN 400 MG CAP PO ×3 (09:17→21:09)
[2018-08-06] MEDS: BUMETANIDE 0.5 MG TAB PO (09:17)
[2018-08-06] MEDS: POLYETHYLENE GLYCOL 17 GM PACKET PO ×2 (09:17→21:00)
[2018-08-06] MEDS: metFORMIN 500 MG TAB PO (09:17)
[2018-08-06] MEDS: FLUTICASONE/VILANTEROL 100-25 INH (09:18)
[2018-08-06 10:26] LABS: ADD MAN DIFF? NO
[2018-08-06 10:27] LABS: BASOPHILS % 0.4 % (0.0-2.0); EOSINOPHILS # 0.2 10^3/ul (0.0-0.5); EOSINOPHILS % 2.3 % (0.0-7.0); HEMATOCRIT 36.9 % (42.0-52.0); HEMOGLOBIN 10.9 g/dl (14.0-18.0); LYMPHOCYTES # 0.7 10^3/ul (0.8-2.9); LYMPHOCYTES % 9.7 % (15.0-51.0); MEAN CORPUSCULAR HEMOGLOBIN 25.3 pg (29.0-33.0); MEAN CORPUSCULAR HGB CONC 29.5 g/dl (32.0-37.0); MEAN CORPUSCULAR VOLUME 85.8 fl (82.0-101.0); MONOCYTE # 0.6 10^3/ul (0.3-0.9); MONOCYTES % 8.3 % (0.0-11.0); NEUTROPHIL # 5.5 10^3/ul (1.6-7.5); NEUTROPHILS % 78.9 % (39.0-77.0); PLATELET COUNT 179 10^3/UL (140-415); RED CELL DISTRIBUTION WIDTH 16.3 % (11.5-14.5)
[2018-08-06 10:45] LABS: ANION GAP 9 (5-13); BLOOD UREA NITROGEN 45 mg/dl (7-20); CALCIUM 9.4 mg/dl (8.4-10.2); CARBON DIOXIDE 32 mmol/L (21-31); CHLORIDE 104 mmol/L (97-110); CREATININE 1.22 mg/dl (0.61-1.24); Estimated GFR 59 mL/min (>60); GLUCOSE 202 mg/dl (70-220); POTASSIUM 4.6 mmol/L (3.5-5.1); SODIUM 145 mmol/L (135-144)
[2018-08-06] MEDS: DIGOXIN 0.125 MG TAB PO (14:04)
[2018-08-06] MEDS: HYDROmorphONE 0.5 MG/0.5 ML SYG IV ×2 (14:59→19:26)
[2018-08-06] MEDS: INSULIN DETEMIR [LEVEMIR] (100 UNITS/ML) SYG SC (19:32)
[2018-08-06] MEDS: ATORVASTATIN 40 MG TAB PO (21:09)
[2018-08-06] MEDS: FAMOTIDINE 20 MG TAB PO (21:10)
[2018-08-06] MEDS: SOD CHLORIDE 0.9% 1,000 ML IV (23:26)
[2018-08-07] MEDS: ACCU-CHEK XX (02:27)
[2018-08-07] MEDS: HYDROmorphONE 0.5 MG/0.5 ML SYG IV ×3 (05:10→18:57)
[2018-08-07] MEDS: METOPROLOL 50 MG TAB PO ×3 (05:33→21:50)
[2018-08-07] MEDS: INSULIN ASPART [NOVOLOG] 3 ML PEN SC ×7 (07:49→20:58)
[2018-08-07] MEDS: DULOXETINE 20 MG CAP DR PO (08:05)
[2018-08-07] MEDS: MULTIVITAMINS THERAPEUTIC TAB PO (08:05)
[2018-08-07] MEDS: SENNA TAB PO (08:05)
[2018-08-07] MEDS: GABAPENTIN 400 MG CAP PO ×3 (08:05→20:57)
[2018-08-07] MEDS: EMPAGLIFLOZIN 10 MG TABLET PO (08:05)
[2018-08-07] MEDS: metFORMIN 500 MG TAB PO (08:05)
[2018-08-07] MEDS: ESCITALOPRAM 10 MG TAB PO (08:06)
[2018-08-07] MEDS: BUMETANIDE 0.5 MG TAB PO (08:06)
[2018-08-07] MEDS: POLYETHYLENE GLYCOL 17 GM PACKET PO ×2 (08:06→20:57)
[2018-08-07] MEDS: COLLAGENASE 5 GM (UD JAR) TOP (08:06)
[2018-08-07] MEDS: FLUTICASONE/VILANTEROL 100-25 INH (08:06)
[2018-08-07] MEDS: ISOSORBIDE MONONITRATE(SR)30 MG TAB PO (08:56)
[2018-08-07] MEDS: ALPRAZOLAM 0.25 MG TAB PO (09:16)
[2018-08-07] MEDS: DIGOXIN 0.125 MG TAB PO (13:39)
[2018-08-07] MEDS: BISACODYL (EC) 5 MG TAB PO ×2 (17:14→20:52)
[2018-08-07] MEDS: SOD CHLORIDE 0.9% 1,000 ML IV (17:15)
[2018-08-07] MEDS: PEG/ELECTROLYTES 4L BTL PO ×2 (19:16→20:53)
[2018-08-07] MEDS: ATORVASTATIN 40 MG TAB PO (20:57)
[2018-08-07] MEDS: FAMOTIDINE 20 MG TAB PO (20:58)
[2018-08-07] MEDS: INSULIN DETEMIR [LEVEMIR] (100 UNITS/ML) SYG SC (21:43)
[2018-08-08] MEDS: HYDROmorphONE 0.5 MG/0.5 ML SYG IV ×3 (00:07→22:45)
[2018-08-08] MEDS: ACCU-CHEK XX (02:00)
[2018-08-08] MEDS: DEXTROSE 50% 50 ML SYRINGE IV (05:14)
[2018-08-08] MEDS: METOPROLOL 50 MG TAB PO ×3 (05:32→21:38)
[2018-08-08] MEDS: ALBUTEROL/IPRATROPIUM (NEB) 3 ML AMP HHN ×3 (06:06→21:15)
[2018-08-08] MEDS: INSULIN ASPART [NOVOLOG] 3 ML PEN SC ×7 (07:56→22:56)
[2018-08-08] MEDS: GABAPENTIN 400 MG CAP PO ×3 (10:14→21:39)
[2018-08-08] MEDS: POLYETHYLENE GLYCOL 17 GM PACKET PO ×2 (10:14→21:40)
[2018-08-08] MEDS: COLLAGENASE 5 GM (UD JAR) TOP (10:14)
[2018-08-08] MEDS: metFORMIN 500 MG TAB PO (10:14)
[2018-08-08] MEDS: ESCITALOPRAM 10 MG TAB PO (10:14)
[2018-08-08] MEDS: MULTIVITAMINS THERAPEUTIC TAB PO (10:14)
[2018-08-08] MEDS: ISOSORBIDE MONONITRATE(SR)30 MG TAB PO (10:15)
[2018-08-08] MEDS: EMPAGLIFLOZIN 10 MG TABLET PO (10:15)
[2018-08-08] MEDS: FLUTICASONE/VILANTEROL 100-25 INH (10:16)
[2018-08-08] MEDS: DULOXETINE 20 MG CAP DR PO (10:19)
[2018-08-08] MEDS: BUMETANIDE 0.5 MG TAB PO (10:20)
[2018-08-08] MEDS: SOD CHLORIDE 0.9% 1,000 ML IV (14:04)
[2018-08-08] MEDS: DIGOXIN 0.125 MG TAB PO (14:05)
[2018-08-08 14:15] LABS: ADD MAN DIFF? NO
[2018-08-08 14:17] LABS: BASOPHILS % 0.3 % (0.0-2.0); EOSINOPHILS # 0.2 10^3/ul (0.0-0.5); EOSINOPHILS % 2.9 % (0.0-7.0); HEMATOCRIT 38.2 % (42.0-52.0); HEMOGLOBIN 11.2 g/dl (14.0-18.0); LYMPHOCYTES # 0.7 10^3/ul (0.8-2.9); LYMPHOCYTES % 11.4 % (15.0-51.0); MEAN CORPUSCULAR HEMOGLOBIN 25.1 pg (29.0-33.0); MEAN CORPUSCULAR HGB CONC 29.3 g/dl (32.0-37.0); MEAN CORPUSCULAR VOLUME 85.5 fl (82.0-101.0); MEAN PLATELET VOLUME 10.2 fl (7.4-10.4); MONOCYTE # 0.6 10^3/ul (0.3-0.9); MONOCYTES % 9.4 % (0.0-11.0); NEUTROPHIL # 4.9 10^3/ul (1.6-7.5); NEUTROPHILS % 75.7 % (39.0-77.0); PLATELET COUNT 175 10^3/UL (140-415); RED BLOOD COUNT 4.47 10^6/ul (4.70-6.10)
[2018-08-08 14:17] LABS: WHITE BLOOD COUNT 6.5 10^3/ul (4.8-10.8)
[2018-08-08 14:42] LABS: ANION GAP 6 (5-13); BLOOD UREA NITROGEN 28 mg/dl (7-20); CARBON DIOXIDE 31 mmol/L (21-31); CHLORIDE 109 mmol/L (97-110); CREATININE 0.97 mg/dl (0.61-1.24); Estimated GFR > 60 mL/min (>60); GLUCOSE 97 mg/dl (70-220); POTASSIUM 4.1 mmol/L (3.5-5.1); SODIUM 146 mmol/L (135-144)
[2018-08-08 14:44] LABS: INR 1.51; PROTIME 18.5 Sec (11.9-14.9); PT RATIO 1.4
[2018-08-08 14:45] LABS: PARTIAL THROMBOPLASTIN TIME 42.7 Sec (23.0-35.0)
[2018-08-08] MEDS: INSULIN DETEMIR [LEVEMIR] (100 UNITS/ML) SYG SC (20:32)
[2018-08-08] MEDS: ATORVASTATIN 40 MG TAB PO (21:38)
[2018-08-08] MEDS: FAMOTIDINE 20 MG TAB PO (21:39)
[2018-08-09] MEDS: ACCU-CHEK XX (02:00)
[2018-08-09] MEDS: METOPROLOL 50 MG TAB PO ×3 (06:00→22:31)
[2018-08-09] MEDS: HYDROmorphONE 0.5 MG/0.5 ML SYG IV ×4 (07:23→22:53)
[2018-08-09] MEDS: INSULIN ASPART [NOVOLOG] 3 ML PEN SC ×7 (07:44→21:00)
[2018-08-09] MEDS: POLYETHYLENE GLYCOL 17 GM PACKET PO ×2 (08:09→21:00)
[2018-08-09] MEDS: BUMETANIDE 0.5 MG TAB PO (08:10)
[2018-08-09] MEDS: EMPAGLIFLOZIN 10 MG TABLET PO (08:10)
[2018-08-09] MEDS: DULOXETINE 20 MG CAP DR PO (08:11)
[2018-08-09] MEDS: GABAPENTIN 400 MG CAP PO ×3 (08:11→22:30)
[2018-08-09] MEDS: ESCITALOPRAM 10 MG TAB PO (08:11)
[2018-08-09] MEDS: MULTIVITAMINS THERAPEUTIC TAB PO (08:11)
[2018-08-09] MEDS: metFORMIN 500 MG TAB PO (08:11)
[2018-08-09] MEDS: ISOSORBIDE MONONITRATE(SR)30 MG TAB PO (08:12)
[2018-08-09] MEDS: COLLAGENASE 5 GM (UD JAR) TOP (08:12)
[2018-08-09] MEDS: FLUTICASONE/VILANTEROL 100-25 INH (08:56)
[2018-08-09] MEDS: SOD CHLORIDE 0.9% 1,000 ML IV (08:57)
[2018-08-09] MEDS: DIGOXIN 0.125 MG TAB PO (13:17)
[2018-08-09] MEDS: RIVAROXABAN 10 MG TABLET PO (17:45)
[2018-08-09] MEDS ORDERED: RIVAROXABAN 15 MG TABLET PO (18:00)
[2018-08-09] MEDS: INSULIN DETEMIR [LEVEMIR] (100 UNITS/ML) SYG SC (20:28)
[2018-08-09] MEDS: ATORVASTATIN 40 MG TAB PO (22:26)
[2018-08-09] MEDS: FAMOTIDINE 20 MG TAB PO (22:32)
[2018-08-09] MEDS: ALBUTEROL/IPRATROPIUM (NEB) 3 ML AMP HHN (22:49)
[2018-08-10] MEDS: ACCU-CHEK XX (02:00)
[2018-08-10 05:43] LABS: ADD MAN DIFF? NO
[2018-08-10 05:52] LABS: BASOPHILS % 0.6 % (0.0-2.0); EOSINOPHILS # 0.1 10^3/ul (0.0-0.5); EOSINOPHILS % 2.2 % (0.0-7.0); HEMATOCRIT 35.5 % (42.0-52.0); HEMOGLOBIN 10.3 g/dl (14.0-18.0); LYMPHOCYTES # 0.8 10^3/ul (0.8-2.9); LYMPHOCYTES % 16.7 % (15.0-51.0); MEAN CORPUSCULAR HEMOGLOBIN 25.1 pg (29.0-33.0); MEAN CORPUSCULAR VOLUME 86.6 fl (82.0-101.0); MEAN PLATELET VOLUME 10.6 fl (7.4-10.4); MONOCYTE # 0.5 10^3/ul (0.3-0.9); MONOCYTES % 10.4 % (0.0-11.0); NEUTROPHIL # 3.4 10^3/ul (1.6-7.5); NEUTROPHILS % 69.5 % (39.0-77.0); PLATELET COUNT 128 10^3/UL (140-415); RED CELL DISTRIBUTION WIDTH 15.8 % (11.5-14.5)
[2018-08-10 05:52] LABS: WHITE BLOOD COUNT 4.9 10^3/ul (4.8-10.8)
[2018-08-10] MEDS: METOPROLOL 50 MG TAB PO ×3 (06:04→21:22)
[2018-08-10] MEDS: SOD CHLORIDE 0.9% 1,000 ML IV (06:05)
[2018-08-10 06:30] LABS: ANION GAP 6 (5-13); BLOOD UREA NITROGEN 27 mg/dl (7-20); CALCIUM 8.5 mg/dl (8.4-10.2); CARBON DIOXIDE 30 mmol/L (21-31); CHLORIDE 110 mmol/L (97-110); CREATININE 0.96 mg/dl (0.61-1.24); Estimated GFR > 60 mL/min (>60); GLUCOSE 109 mg/dl (70-220); POTASSIUM 3.9 mmol/L (3.5-5.1); SODIUM 146 mmol/L (135-144)
[2018-08-10] MEDS: metFORMIN 500 MG TAB PO (08:00)
[2018-08-10] MEDS: INSULIN ASPART [NOVOLOG] 3 ML PEN SC ×7 (08:00→21:00)
[2018-08-10] MEDS: EMPAGLIFLOZIN 10 MG TABLET PO ×2 (08:00→12:36)
[2018-08-10] MEDS: DULOXETINE 20 MG CAP DR PO (08:26)
[2018-08-10] MEDS: RIVAROXABAN 10 MG TABLET PO (08:26)
[2018-08-10] MEDS: COLLAGENASE 5 GM (UD JAR) TOP (08:26)
[2018-08-10] MEDS: GABAPENTIN 400 MG CAP PO ×3 (08:27→21:06)
[2018-08-10] MEDS: ISOSORBIDE MONONITRATE(SR)30 MG TAB PO (08:27)
[2018-08-10] MEDS: ESCITALOPRAM 10 MG TAB PO (08:27)
[2018-08-10] MEDS: POLYETHYLENE GLYCOL 17 GM PACKET PO ×2 (08:28→21:00)
[2018-08-10] MEDS: MULTIVITAMINS THERAPEUTIC TAB PO (08:28)
[2018-08-10] MEDS: FLUTICASONE/VILANTEROL 100-25 INH (08:28)
[2018-08-10] MEDS: BUMETANIDE 0.5 MG TAB PO (08:36)
[2018-08-10] MEDS: HYDROmorphONE 0.5 MG/0.5 ML SYG IV ×2 (08:44→15:37)
[2018-08-10] MEDS: DIGOXIN 0.125 MG TAB PO (12:33)
[2018-08-10] MEDS: ATORVASTATIN 40 MG TAB PO (21:06)
[2018-08-10] MEDS: APIXABAN 5 MG TABLET PO (21:06)
[2018-08-10] MEDS: FAMOTIDINE 20 MG TAB PO (21:06)
[2018-08-10] MEDS: INSULIN DETEMIR [LEVEMIR] (100 UNITS/ML) SYG SC (21:13)
[2018-08-10] MEDS: ALBUTEROL/IPRATROPIUM (NEB) 3 ML AMP HHN (21:33)
[2018-08-10] MEDS: ALPRAZOLAM 0.25 MG TAB PO (22:57)
[2018-08-11] MEDS: ACCU-CHEK XX (01:14)
[2018-08-11] MEDS: HYDROmorphONE 0.5 MG/0.5 ML SYG IV ×2 (01:23→05:33)
[2018-08-11] MEDS: OXYCODONE/ACETAMINOPHEN (5/325) TAB PO (04:18)
[2018-08-11] MEDS: hydrALAzine 20 MG INJ IV ×4 (04:52→16:00)
[2018-08-11] MEDS: ALBUTEROL/IPRATROPIUM (NEB) 3 ML AMP HHN (05:00)
[2018-08-11] MEDS: FUROSEMIDE 20 MG INJ IV ×2 (05:16→16:16)
[2018-08-11] MEDS: METOPROLOL 50 MG TAB PO ×3 (06:00→21:15)
[2018-08-11 06:08] LABS: AADO2 Arterial 300.1 mmHg (7.0-24.0); Allen Test ACCEPTAB; Arterial Base Excess 0.4 mmol/L (-3.0-3); Arterial Blood Gas Oxygen Sat 94.1 mmHG (95.0-98.0); Arterial HCO3 27.8 mmol/L (22.0-26.0); Arterial MetHb 0.2 % (0.0-1.5); Arterial Total Hemglobin 13.2 g/dl (12.0-18.0); MODE MASK - SIMPLE; Site Right Radial
[2018-08-11] MEDS ORDERED: SUCCINYLCHOLINE CHLORIDE 100 MG/5 ML SYG IV (07:00)
[2018-08-11] MEDS ORDERED: ETOMIDATE 20 MG INJ (07:00)
[2018-08-11] MEDS: INSULIN ASPART [NOVOLOG] 3 ML PEN SC ×7 (07:55→20:38)
[2018-08-11] MEDS: EMPAGLIFLOZIN 10 MG TABLET PO (08:00)
[2018-08-11] MEDS: MULTIVITAMINS THERAPEUTIC TAB PO (09:00)
[2018-08-11] MEDS: APIXABAN 5 MG TABLET PO ×2 (09:00→20:34)
[2018-08-11] MEDS: POLYETHYLENE GLYCOL 17 GM PACKET PO ×2 (09:00→20:37)
[2018-08-11] MEDS: BUMETANIDE 0.5 MG TAB PO (09:00)
[2018-08-11] MEDS: ISOSORBIDE MONONITRATE(SR)30 MG TAB PO (09:00)
[2018-08-11] MEDS: ESCITALOPRAM 10 MG TAB PO (09:00)
[2018-08-11] MEDS: FLUTICASONE/VILANTEROL 100-25 INH (09:00)
[2018-08-11] MEDS: GABAPENTIN 400 MG CAP PO ×3 (09:00→20:34)
[2018-08-11] MEDS: DULOXETINE 20 MG CAP DR PO (09:00)
[2018-08-11] MEDS: metFORMIN 500 MG TAB PO (09:38)
[2018-08-11] MEDS: COLLAGENASE 5 GM (UD JAR) TOP (10:00)
[2018-08-11 10:08] LABS: AADO2 Arterial 569.6 mmHg (7.0-24.0); Allen Test ACCEPTAB; Arterial Base Excess 1.3 mmol/L (-3.0-3); Arterial Blood Gas Oxygen Sat 97.2 mmHG (95.0-98.0); Arterial COHb 0.8 % (0.0-3.0); Arterial Fraction of Oxyhgb 96.1 % (93.0-99.0); Arterial HCO3 27.5 mmol/L (22.0-26.0); Arterial MetHb 0.3 % (0.0-1.5); Arterial Total Hemglobin 12.4 g/dl (12.0-18.0); Arterial pCO2 50.3 mmhg (35-45); MODE HFNC; Site Right Radial
[2018-08-11] MEDS: DIGOXIN 0.125 MG TAB PO (13:00)
[2018-08-11 14:35] LABS: AADO2 Arterial 604.9 mmHg (7.0-24.0); Allen Test ACCEPTAB; Arterial Base Excess 1.3 mmol/L (-3.0-3); Arterial Blood Gas Oxygen Sat 92.1 mmHG (95.0-98.0); Arterial COHb 0.6 % (0.0-3.0); Arterial Fraction of Oxyhgb 91.4 % (93.0-99.0); Arterial HCO3 27.3 mmol/L (22.0-26.0); Arterial MetHb 0.2 % (0.0-1.5); Arterial Total Hemglobin 12.9 g/dl (12.0-18.0); Arterial pCO2 48.8 mmhg (35-45); MODE HFNC; Site Right Radial
[2018-08-11] MEDS ORDERED: FUROSEMIDE 20 MG INJ (16:15)
[2018-08-11] MEDS ORDERED: VANCOMYCIN IV PER PHARMACY XX (16:30)
[2018-08-11 17:10] LABS: ABNORMAL IP MESSAGE 1; HEMATOCRIT 37.3 % (42.0-52.0); HEMOGLOBIN 10.8 g/dl (14.0-18.0); MEAN CORPUSCULAR HEMOGLOBIN 24.8 pg (29.0-33.0); MEAN CORPUSCULAR VOLUME 85.6 fl (82.0-101.0); MEAN PLATELET VOLUME 10.8 fl (7.4-10.4); PLATELET COUNT 136 10^3/UL (140-415); POSITIVE DIFF @See below; RED BLOOD COUNT 4.36 10^6/ul (4.70-6.10); RED CELL DISTRIBUTION WIDTH 16.4 % (11.5-14.5)
[2018-08-11 17:10] LABS: WHITE BLOOD COUNT 18.6 10^3/ul (4.8-10.8)
[2018-08-11 17:13] LABS: ADD MAN DIFF? YES
[2018-08-11 17:34] LABS: ANION GAP 10 (5-13); BLOOD UREA NITROGEN 27 mg/dl (7-20); CALCIUM 9.3 mg/dl (8.4-10.2); CARBON DIOXIDE 27 mmol/L (21-31); CHLORIDE 107 mmol/L (97-110); CREATININE 1.35 mg/dl (0.61-1.24); Estimated GFR 53 mL/min (>60); GLUCOSE 144 mg/dl (70-220); POTASSIUM 4.3 mmol/L (3.5-5.1); SODIUM 144 mmol/L (135-144)
[2018-08-11 17:41] LABS: ANISOCYTOSIS 1+ (0-0); BAND NEUTROPHILS #M 2.2 10^3/ul (0.0-0.6); BAND NEUTROPHILS % (M) 12 % (0-4); BASOPHIL #M 0.1 10^3/ul (0.0-0.0); BASOPHILS % (M) 1 % (0-2); GIANT THROMBO% (M) 1 % (0-0); LYMPHOCYTES #M 0.3 10^3/ul (0.8-2.9); LYMPHOCYTES % (M) 2 % (15-51); MICROCYTOSIS 1+ (0-0); MONOCYTE #M 0.3 10^3/ul (0.3-0.9); MONOCYTES % (M) 2 % (0-11); PLATELET ESTIMATE NORMAL; POIKILOCYTOSIS 1+ (0-0); POLYCHROMASIA 1+ (0-0); REACTIVE LYMPHOCYTES #M 0.1 10^3/ul (0.0-0.0); REACTIVE LYMPHOCYTES% (M) 1 % (0-0); SEG NEUT #M 15.7 10^3/ul (1.6-7.5); SEGMENTED NEUTROPHILS (M) % 82 % (39-77); SMUDGE%M 2 % (0-0)
[2018-08-11] MEDS: ACETAMINOPHEN 325 MG TAB PO (17:58)
[2018-08-11] MEDS: SOD CHLORIDE 0.9% 1,000 ML IV (17:59)
[2018-08-11] MEDS: MIDAZOLAM (DRIP) 50 mg/50 mL 50 ML IV (18:00)
[2018-08-11] MEDS: CEFEPIME 1GM/50 ML (PMX) 50 ML IVPB ×2 (18:17→23:27)
[2018-08-11 19:34] LABS: AADO2 Arterial 502.4 mmHg (7.0-24.0); Allen Test ACCEPTAB; Arterial Base Excess 1.7 mmol/L (-3.0-3); Arterial COHb 0.2 % (0.0-3.0); Arterial Fraction of Oxyhgb 98.5 % (93.0-99.0); Arterial HCO3 25.6 mmol/L (22.0-26.0); Arterial MetHb 0.3 % (0.0-1.5); Arterial Total Hemglobin 10.7 g/dl (12.0-18.0); Arterial pCO2 37.7 mmhg (35-45); MODE VENT - AC; Site Right Radial
[2018-08-11] MEDS: VANCOMYCIN 1.5 GM in SOD CHLORIDE 0.9% 250 ML IVPB (20:29)
[2018-08-11] MEDS: ATORVASTATIN 40 MG TAB PO (20:34)
[2018-08-11] MEDS: FAMOTIDINE 20 MG TAB PO (20:34)
[2018-08-11] MEDS: INSULIN DETEMIR [LEVEMIR] (100 UNITS/ML) SYG SC (21:14)
[2018-08-12] MEDS: ACETAMINOPHEN 325 MG TAB PO ×2 (00:22→12:16)
[2018-08-12] MEDS ORDERED: INSULIN ASPART [NOVOLOG] 3 ML PEN SC (01:00)
[2018-08-12] MEDS: Insulin NOVOLOG SS MODERATE Algorithm(NPO/TPN/ENTERAL FEEDS) SC ×6 (01:00→20:50)
[2018-08-12] MEDS ORDERED: NORepinephrine 8MG/250 ML (PMX 250 ML (01:16)
[2018-08-12] MEDS: ACCU-CHEK XX (02:00)
[2018-08-12] MEDS: NORepinephrine 8MG/250 ML (PMX 250 ML IV (02:00)
[2018-08-12 05:20] LABS: ABNORMAL IP MESSAGE 1; HEMATOCRIT 35.7 % (42.0-52.0); MEAN CORPUSCULAR HEMOGLOBIN 25.1 pg (29.0-33.0); MEAN CORPUSCULAR VOLUME 89.5 fl (82.0-101.0); MEAN PLATELET VOLUME 11.4 fl (7.4-10.4); PLATELET COUNT 77 10^3/UL (140-415); POSITIVE DIFF @See below; RED BLOOD COUNT 3.99 10^6/ul (4.70-6.10); RED CELL DISTRIBUTION WIDTH 16.4 % (11.5-14.5)
[2018-08-12 05:20] LABS: WHITE BLOOD COUNT 10.3 10^3/ul (4.8-10.8)
[2018-08-12] MEDS: METOPROLOL 50 MG TAB PO ×3 (05:31→21:00)
[2018-08-12 05:36] LABS: ALANINE AMINOTRANSFERASE 26 IU/L (13-69); ALBUMIN 2.8 g/dl (3.3-4.9); ALBUMIN/GLOBULIN RATIO 0.77; ALKALINE PHOSPHATASE 99 IU/L (42-121); ANION GAP 5 (5-13); ASPARTATE AMINO TRANSFERASE 48 IU/L (15-46); BILIRUBIN,INDIRECT 1.6 mg/dl (0-1.1); BILIRUBIN,TOTAL 1.6 mg/dl (0.2-1.3); BLOOD UREA NITROGEN 33 mg/dl (7-20); CALCIUM 8.3 mg/dl (8.4-10.2); CARBON DIOXIDE 26 mmol/L (21-31); CHLORIDE 114 mmol/L (97-110); Estimated GFR 51 mL/min (>60); GLUCOSE 90 mg/dl (70-220); POTASSIUM 3.8 mmol/L (3.5-5.1); SODIUM 145 mmol/L (135-144); TOTAL PROTEIN 6.4 g/dl (6.1-8.1)
[2018-08-12 05:46] LABS: ADD MAN DIFF? YES
[2018-08-12] MEDS: BUMETANIDE 1 MG INJ IV ×2 (05:48→17:08)
[2018-08-12] MEDS: MIDAZOLAM (DRIP) 50 mg/50 mL 50 ML IV (06:27)
[2018-08-12] MEDS: metFORMIN 500 MG TAB PO (07:29)
[2018-08-12] MEDS: INSULIN ASPART [NOVOLOG] 3 ML PEN SC ×2 (07:30→09:27)
[2018-08-12] MEDS: EMPAGLIFLOZIN 10 MG TABLET PO (07:37)
[2018-08-12] MEDS: POLYETHYLENE GLYCOL 17 GM PACKET PO ×2 (08:26→20:48)
[2018-08-12] MEDS: COLLAGENASE 5 GM (UD JAR) TOP (08:26)
[2018-08-12] MEDS: CEFEPIME 1GM/50 ML (PMX) 50 ML IVPB ×2 (08:27→20:47)
[2018-08-12] MEDS: DULOXETINE 20 MG CAP DR PO (08:27)
[2018-08-12] MEDS: MULTIVITAMINS THERAPEUTIC TAB PO (08:28)
[2018-08-12] MEDS: GABAPENTIN 400 MG CAP PO ×3 (08:28→20:48)
[2018-08-12] MEDS: APIXABAN 5 MG TABLET PO ×2 (08:28→20:48)
[2018-08-12] MEDS: ESCITALOPRAM 10 MG TAB PO (08:28)
[2018-08-12] MEDS: ISOSORBIDE MONONITRATE(SR)30 MG TAB PO (08:29)
[2018-08-12] MEDS: FLUTICASONE/VILANTEROL 100-25 INH (08:29)
[2018-08-12 08:52] LABS: ANISOCYTOSIS 2+ (0-0); BAND NEUTROPHILS #M 2.6 10^3/ul (0.0-0.6); BAND NEUTROPHILS % (M) 26 % (0-4); BURR CELLS 1+ (0-0); LYMPHOCYTES #M 0.3 10^3/ul (0.8-2.9); LYMPHOCYTES % (M) 3 % (15-51); MICROCYTOSIS 2+ (0-0); MONOCYTE #M 0.2 10^3/ul (0.3-0.9); MONOCYTES % (M) 2 % (0-11); PLATELET ESTIMATE DECREASED; POIKILOCYTOSIS 1+ (0-0); POLYCHROMASIA 3+ (0-0); SEG NEUT #M 7.4 10^3/ul (1.6-7.5); SEGMENTED NEUTROPHILS (M) % 69 % (39-77); SMUDGE%M 1 % (0-0); TARGET CELLS 1+ (0-0)
[2018-08-12] MEDS: ALTEPLASE (CATHFLO) 2 MG INJ CATHETER (10:34)
[2018-08-12] MEDS: DIGOXIN 0.125 MG TAB PO (12:15)
[2018-08-12] MEDS: HYDROmorphONE 0.5 MG/0.5 ML SYG IV ×2 (13:34→22:09)
[2018-08-12] MEDS ORDERED: INSULIN DETEMIR [LEVEMIR] (100 UNITS/ML) SYG SC (20:00)
[2018-08-12] MEDS: FAMOTIDINE 20 MG TAB PO (20:48)
[2018-08-12] MEDS: ATORVASTATIN 40 MG TAB PO (20:48)
[2018-08-13] MEDS: MIDAZOLAM (DRIP) 50 mg/50 mL 50 ML IV ×2 (00:11→13:18)
[2018-08-13] MEDS: Insulin NOVOLOG SS MODERATE Algorithm(NPO/TPN/ENTERAL FEEDS) SC ×3 (00:29→09:00)
[2018-08-13] MEDS: ACCU-CHEK XX (01:32)
[2018-08-13] MEDS: HYDROmorphONE 0.5 MG/0.5 ML SYG IV ×2 (04:52→14:40)
[2018-08-13] MEDS: BUMETANIDE 1 MG INJ IV ×2 (05:31→17:17)
[2018-08-13] MEDS: METOPROLOL 50 MG TAB PO ×3 (05:44→22:00)
[2018-08-13 06:33] LABS: ABNORMAL IP MESSAGE 1; HEMATOCRIT 20.1 % (42.0-52.0); MEAN CORPUSCULAR HEMOGLOBIN 25.2 pg (29.0-33.0); MEAN CORPUSCULAR HGB CONC 29.9 g/dl (32.0-37.0); MEAN CORPUSCULAR VOLUME 84.5 fl (82.0-101.0); MEAN PLATELET VOLUME 11.7 fl (7.4-10.4); PLATELET COUNT 41 10^3/UL (140-415); POSITIVE DIFF @See below; RED BLOOD COUNT 2.38 10^6/ul (4.70-6.10); RED CELL DISTRIBUTION WIDTH 16.6 % (11.5-14.5)
[2018-08-13 06:33] LABS: WHITE BLOOD COUNT 4.7 10^3/ul (4.8-10.8)
[2018-08-13 06:38] LABS: ADD MAN DIFF? YES
[2018-08-13 07:09] LABS: VANCOMYCIN,RANDOM 12.6 ug/ml
[2018-08-13] MEDS: metFORMIN 500 MG TAB PO (07:35)
[2018-08-13] MEDS: EMPAGLIFLOZIN 10 MG TABLET PO (08:00)
[2018-08-13 08:34] LABS: ANISOCYTOSIS 2+ (0-0); BAND NEUTROPHILS #M 1.3 10^3/ul (0.0-0.6); BAND NEUTROPHILS % (M) 28 % (0-4); BASOPHIL #M 0.3 10^3/ul (0.0-0.0); BASOPHILS % (M) 8 % (0-2); BURR CELLS 1+ (0-0); EOSINOPHILS % (M) 2 % (0-7); GIANT THROMBO% (M) 1 % (0-0); LYMPHOCYTES #M 0.8 10^3/ul (0.8-2.9); LYMPHOCYTES % (M) 19 % (15-51); MICROCYTOSIS 2+ (0-0); PLATELET ESTIMATE SIG DECREASED; POIKILOCYTOSIS 2+ (0-0); POLYCHROMASIA 2+ (0-0); REACTIVE LYMPHOCYTES% (M) 2 % (0-0); SEGMENTED NEUTROPHILS (M) % 41 % (39-77); SMUDGE%M 9 % (0-0)
[2018-08-13] MEDS: FLUTICASONE/VILANTEROL 100-25 INH (09:00)
[2018-08-13] MEDS: ISOSORBIDE MONONITRATE(SR)30 MG TAB PO (09:00)
[2018-08-13] MEDS: COLLAGENASE 5 GM (UD JAR) TOP (09:06)
[2018-08-13] MEDS: POLYETHYLENE GLYCOL 17 GM PACKET PO ×2 (09:06→20:49)
[2018-08-13] MEDS: MULTIVITAMINS THERAPEUTIC TAB PO (09:07)
[2018-08-13] MEDS: OXYCODONE/ACETAMINOPHEN (5/325) TAB PO (09:07)
[2018-08-13] MEDS: DULOXETINE 20 MG CAP DR PO (09:07)
[2018-08-13] MEDS: ESCITALOPRAM 10 MG TAB PO (09:07)
[2018-08-13] MEDS: APIXABAN 5 MG TABLET PO ×2 (09:07→20:49)
[2018-08-13] MEDS: CEFEPIME 1GM/50 ML (PMX) 50 ML IVPB ×2 (09:07→20:49)
[2018-08-13] MEDS: GABAPENTIN 400 MG CAP PO ×3 (09:07→20:49)
[2018-08-13 09:16] LABS: BASOPHILS % 0.4 % (0.0-2.0)
[2018-08-13 09:29] LABS: ABNORMAL IP MESSAGE 1; HEMATOCRIT 35.4 % (42.0-52.0); HEMOGLOBIN 10.5 g/dl (14.0-18.0); MEAN CORPUSCULAR HEMOGLOBIN 24.7 pg (29.0-33.0); MEAN CORPUSCULAR HGB CONC 29.7 g/dl (32.0-37.0); MEAN CORPUSCULAR VOLUME 83.3 fl (82.0-101.0); MEAN PLATELET VOLUME 11.8 fl (7.4-10.4); PLATELET COUNT 93 10^3/UL (140-415); POSITIVE DIFF @See below; RED BLOOD COUNT 4.25 10^6/ul (4.70-6.10); RED CELL DISTRIBUTION WIDTH 16.4 % (11.5-14.5)
[2018-08-13 09:35] LABS: ADD MAN DIFF? YES
[2018-08-13 09:43] LABS: ALANINE AMINOTRANSFERASE 32 IU/L (13-69); ALBUMIN 2.8 g/dl (3.3-4.9); ALBUMIN/GLOBULIN RATIO 0.71; ALKALINE PHOSPHATASE 120 IU/L (42-121); ANION GAP 7 (5-13); ASPARTATE AMINO TRANSFERASE 53 IU/L (15-46); BILIRUBIN,INDIRECT 1.8 mg/dl (0-1.1); BILIRUBIN,TOTAL 1.8 mg/dl (0.2-1.3); BLOOD UREA NITROGEN 38 mg/dl (7-20); CALCIUM 8.3 mg/dl (8.4-10.2); CARBON DIOXIDE 27 mmol/L (21-31); CHLORIDE 112 mmol/L (97-110); Estimated GFR 51 mL/min (>60); GLUCOSE 119 mg/dl (70-220); POTASSIUM 3.2 mmol/L (3.5-5.1); SODIUM 146 mmol/L (135-144); TOTAL PROTEIN 6.7 g/dl (6.1-8.1)
[2018-08-13 10:19] LABS: ANISOCYTOSIS 2+ (0-0); BAND NEUTROPHILS #M 2.3 10^3/ul (0.0-0.6); BAND NEUTROPHILS % (M) 34 % (0-4); BASOPHILS % (M) 1 % (0-2); BURR CELLS 1+ (0-0); GIANT THROMBO% (M) 3 % (0-0); LYMPHOCYTES #M 0.3 10^3/ul (0.8-2.9); LYMPHOCYTES % (M) 5 % (15-51); MICROCYTOSIS 1+ (0-0); MONOCYTE #M 0.4 10^3/ul (0.3-0.9); MONOCYTES % (M) 6 % (0-11); PLATELET ESTIMATE DECREASED; POIKILOCYTOSIS 2+ (0-0); POLYCHROMASIA 3+ (0-0); PROMYELOCYTES % (M) 1 % (0-0); SEG NEUT #M 3.9 10^3/ul (1.6-7.5); SEGMENTED NEUTROPHILS (M) % 53 % (39-77); SMUDGE%M 6 % (0-0)
[2018-08-13] MEDS: INSULIN ASPART [NOVOLOG] 3 ML PEN SC ×2 (12:00→17:22)
[2018-08-13] MEDS: DIGOXIN 0.125 MG TAB PO (13:17)
[2018-08-13] MEDS: VANCOMYCIN 1 GM 250 ML IVPB (14:40)
[2018-08-13] MEDS: POTASSIUM CHLORIDE 50 ML IVPB ×3 (14:41→17:16)
[2018-08-13] MEDS ORDERED: VANCOMYCIN 500 MG (PMX) 100 ML IVPB (20:00)
[2018-08-13] MEDS: CASPOFUNGIN 70 MG in SOD CHLORIDE 0.9% 250 ML IVPB (20:49)
[2018-08-13] MEDS: ATORVASTATIN 40 MG TAB PO (20:49)
[2018-08-13] MEDS: FAMOTIDINE 20 MG TAB PO (20:49)
[2018-08-14] MEDS: MIDAZOLAM (DRIP) 50 mg/50 mL 50 ML IV (00:20)
[2018-08-14] MEDS: ACCU-CHEK XX (02:00)
[2018-08-14 05:02] LABS: ADD MAN DIFF? NO
[2018-08-14 05:11] LABS: ABNORMAL IP MESSAGE 1; BASOPHILS % 0.2 % (0.0-2.0); EOSINOPHILS # 0.1 10^3/ul (0.0-0.5); EOSINOPHILS % 1.2 % (0.0-7.0); HEMATOCRIT 31.5 % (42.0-52.0); HEMOGLOBIN 9.3 g/dl (14.0-18.0); LYMPHOCYTES # 0.6 10^3/ul (0.8-2.9); LYMPHOCYTES % 15.5 % (15.0-51.0); MEAN CORPUSCULAR HEMOGLOBIN 24.8 pg (29.0-33.0); MEAN CORPUSCULAR HGB CONC 29.5 g/dl (32.0-37.0); MEAN PLATELET VOLUME 12.2 fl (7.4-10.4); MONOCYTE # 0.5 10^3/ul (0.3-0.9); MONOCYTES % 11.3 % (0.0-11.0); NEUTROPHIL # 2.9 10^3/ul (1.6-7.5); NEUTROPHILS % 70.8 % (39.0-77.0); PLATELET COUNT 86 10^3/UL (140-415); POSITIVE DIFF @See below; RED BLOOD COUNT 3.75 10^6/ul (4.70-6.10); RED CELL DISTRIBUTION WIDTH 16.6 % (11.5-14.5)
[2018-08-14 05:11] LABS: WHITE BLOOD COUNT 4.1 10^3/ul (4.8-10.8)
[2018-08-14 05:31] LABS: ANION GAP 8 (5-13); BLOOD UREA NITROGEN 42 mg/dl (7-20); CALCIUM 8.2 mg/dl (8.4-10.2); CARBON DIOXIDE 26 mmol/L (21-31); CHLORIDE 114 mmol/L (97-110); CREATININE 1.61 mg/dl (0.61-1.24); Estimated GFR 43 mL/min (>60); GLUCOSE 141 mg/dl (70-220); PHOSPHORUS 2.8 mg/dl (2.5-4.9); POTASSIUM 3.5 mmol/L (3.5-5.1); SODIUM 148 mmol/L (135-144)
[2018-08-14] MEDS: BUMETANIDE 1 MG INJ IV ×2 (05:51→17:48)
[2018-08-14] MEDS: INSULIN ASPART [NOVOLOG] 3 ML PEN SC ×4 (05:54→17:48)
[2018-08-14] MEDS: METOPROLOL 50 MG TAB PO ×3 (05:57→21:32)
[2018-08-14] MEDS: metFORMIN 500 MG TAB PO (07:35)
[2018-08-14] MEDS: ISOSORBIDE MONONITRATE(SR)30 MG TAB PO (09:00)
[2018-08-14] MEDS: EMPAGLIFLOZIN 10 MG TABLET PO (09:07)
[2018-08-14] MEDS: COLLAGENASE 5 GM (UD JAR) TOP (09:09)
[2018-08-14] MEDS: DULOXETINE 20 MG CAP DR PO (09:09)
[2018-08-14] MEDS: APIXABAN 5 MG TABLET PO ×2 (09:09→20:23)
[2018-08-14] MEDS: POLYETHYLENE GLYCOL 17 GM PACKET PO ×2 (09:09→20:24)
[2018-08-14] MEDS: GABAPENTIN 400 MG CAP PO ×3 (09:09→20:23)
[2018-08-14] MEDS: CEFEPIME 1GM/50 ML (PMX) 50 ML IVPB (09:10)
[2018-08-14] MEDS: ACETAMINOPHEN 650MG/20.3ML CUP PO (10:12)
[2018-08-14] MEDS: POTASSIUM CHLORIDE 50 ML IVPB (13:58)
[2018-08-14] MEDS: DIGOXIN 0.125 MG TAB PO (13:58)
[2018-08-14] MEDS: DOXYCYCLINE 100 MG in SOD CHLORIDE 0.9% 250 ML IVPB ×2 (17:47→20:46)
[2018-08-14] MEDS: ATORVASTATIN 40 MG TAB PO (20:23)
[2018-08-14] MEDS: FAMOTIDINE 20 MG TAB PO (20:23)
[2018-08-14] MEDS: CASPOFUNGIN 50 MG in SOD CHLORIDE 0.9% 250 ML IVPB (20:24)
[2018-08-15] MEDS: INSULIN ASPART [NOVOLOG] 3 ML PEN SC ×5 (00:17→23:55)
[2018-08-15] MEDS: ACCU-CHEK XX (01:40)
[2018-08-15 05:05] LABS: ADD MAN DIFF? NO
[2018-08-15 05:14] LABS: WHITE BLOOD COUNT 4.1 10^3/ul (4.8-10.8)
[2018-08-15 05:14] LABS: ABNORMAL IP MESSAGE 1; BASOPHILS % 0.2 % (0.0-2.0); EOSINOPHILS # 0.1 10^3/ul (0.0-0.5); EOSINOPHILS % 1.7 % (0.0-7.0); HEMATOCRIT 32.4 % (42.0-52.0); HEMOGLOBIN 9.4 g/dl (14.0-18.0); LYMPHOCYTES # 0.7 10^3/ul (0.8-2.9); LYMPHOCYTES % 16.4 % (15.0-51.0); MEAN CORPUSCULAR HEMOGLOBIN 24.4 pg (29.0-33.0); MEAN CORPUSCULAR VOLUME 84.2 fl (82.0-101.0); MEAN PLATELET VOLUME 12.7 fl (7.4-10.4); MONOCYTE # 0.6 10^3/ul (0.3-0.9); MONOCYTES % 14.3 % (0.0-11.0); NEUTROPHIL # 2.8 10^3/ul (1.6-7.5); NEUTROPHILS % 66.9 % (39.0-77.0); PLATELET COUNT 84 10^3/UL (140-415); POSITIVE DIFF @See below; RED BLOOD COUNT 3.85 10^6/ul (4.70-6.10); RED CELL DISTRIBUTION WIDTH 16.6 % (11.5-14.5)
[2018-08-15] MEDS: BUMETANIDE 1 MG INJ IV ×2 (05:37→17:35)
[2018-08-15] MEDS: METOPROLOL 50 MG TAB PO ×3 (05:37→21:28)
[2018-08-15 05:44] LABS: ANION GAP 6 (5-13); BLOOD UREA NITROGEN 45 mg/dl (7-20); CALCIUM 8.4 mg/dl (8.4-10.2); CARBON DIOXIDE 29 mmol/L (21-31); CHLORIDE 116 mmol/L (97-110); CREATININE 1.87 mg/dl (0.61-1.24); Estimated GFR 36 mL/min (>60); GLUCOSE 149 mg/dl (70-220); SODIUM 151 mmol/L (135-144)
[2018-08-15] MEDS: POTASSIUM CHLORIDE 50 ML IVPB ×3 (06:41→12:18)
[2018-08-15] MEDS: POLYETHYLENE GLYCOL 17 GM PACKET PO ×2 (08:52→21:29)
[2018-08-15] MEDS: DULOXETINE 20 MG CAP DR PO (08:53)
[2018-08-15] MEDS: COLLAGENASE 5 GM (UD JAR) TOP (08:53)
[2018-08-15] MEDS: EMPAGLIFLOZIN 10 MG TABLET PO (08:53)
[2018-08-15] MEDS: APIXABAN 5 MG TABLET PO ×2 (08:54→21:28)
[2018-08-15] MEDS: metFORMIN 500 MG TAB PO (08:54)
[2018-08-15] MEDS: GABAPENTIN 400 MG CAP PO ×3 (08:54→21:29)
[2018-08-15] MEDS: ISOSORBIDE MONONITRATE(SR)30 MG TAB PO (09:00)
[2018-08-15] MEDS: DOXYCYCLINE 100 MG in SOD CHLORIDE 0.9% 250 ML IVPB ×2 (09:16→21:43)
[2018-08-15] MEDS: DIGOXIN 0.125 MG TAB PO (12:16)
[2018-08-15] MEDS: D5W + KCL 20 MEQ 1,000 ML IV (16:12)
[2018-08-15] MEDS: CEFEPIME 1GM/50 ML (PMX) 50 ML IVPB (16:13)
[2018-08-15] MEDS: CASPOFUNGIN 50 MG in SOD CHLORIDE 0.9% 250 ML IVPB (19:53)
[2018-08-15] MEDS: ATORVASTATIN 40 MG TAB PO (21:28)
[2018-08-15] MEDS: FAMOTIDINE 20 MG TAB PO (21:28)
[2018-08-16] MEDS: ACCU-CHEK XX (02:00)
[2018-08-16 05:13] LABS: ADD MAN DIFF? NO
[2018-08-16 05:19] LABS: WHITE BLOOD COUNT 4.6 10^3/ul (4.8-10.8)
[2018-08-16 05:19] LABS: ABNORMAL IP MESSAGE 1; BASOPHILS % 0.4 % (0.0-2.0); EOSINOPHILS # 0.1 10^3/ul (0.0-0.5); EOSINOPHILS % 1.7 % (0.0-7.0); HEMATOCRIT 33.3 % (42.0-52.0); HEMOGLOBIN 9.8 g/dl (14.0-18.0); LYMPHOCYTES # 0.9 10^3/ul (0.8-2.9); LYMPHOCYTES % 18.7 % (15.0-51.0); MEAN CORPUSCULAR HEMOGLOBIN 24.6 pg (29.0-33.0); MEAN CORPUSCULAR HGB CONC 29.4 g/dl (32.0-37.0); MEAN CORPUSCULAR VOLUME 83.7 fl (82.0-101.0); MEAN PLATELET VOLUME 13.2 fl (7.4-10.4); MONOCYTE # 0.7 10^3/ul (0.3-0.9); MONOCYTES % 14.2 % (0.0-11.0); NEUTROPHIL # 2.9 10^3/ul (1.6-7.5); NEUTROPHILS % 63.9 % (39.0-77.0); NUCLEATED RED BLOOD CELLS% 0.4 /100WBC (0.0-0.0); PLATELET COUNT 78 10^3/UL (140-415); POSITIVE DIFF @See below; RED BLOOD COUNT 3.98 10^6/ul (4.70-6.10); RED CELL DISTRIBUTION WIDTH 16.9 % (11.5-14.5)
[2018-08-16 05:54] LABS: VANCOMYCIN,RANDOM 17.6 ug/ml
[2018-08-16 06:00] LABS: ANION GAP 7 (5-13); BLOOD UREA NITROGEN 52 mg/dl (7-20); CALCIUM 8.2 mg/dl (8.4-10.2); CARBON DIOXIDE 29 mmol/L (21-31); CHLORIDE 114 mmol/L (97-110); CREATININE 1.75 mg/dl (0.61-1.24); Estimated GFR 39 mL/min (>60); GLUCOSE 300 mg/dl (70-220); MAGNESIUM 2.1 mg/dl (1.7-2.5); PHOSPHORUS 1.2 mg/dl (2.5-4.9); POTASSIUM 3.6 mmol/L (3.5-5.1); SODIUM 150 mmol/L (135-144)
[2018-08-16] MEDS: METOPROLOL 50 MG TAB PO ×3 (06:00→21:03)
[2018-08-16] MEDS: BUMETANIDE 1 MG INJ IV ×2 (06:00→17:53)
[2018-08-16] MEDS: INSULIN ASPART [NOVOLOG] 3 ML PEN SC ×4 (06:20→23:59)
[2018-08-16] MEDS: D5W + KCL 20 MEQ 1,000 ML IV (08:59)
[2018-08-16] MEDS: ISOSORBIDE MONONITRATE(SR)30 MG TAB PO (09:00)
[2018-08-16] MEDS: DOXYCYCLINE 100 MG in SOD CHLORIDE 0.9% 250 ML IVPB ×2 (09:08→20:34)
[2018-08-16] MEDS: metFORMIN 500 MG TAB PO (09:20)
[2018-08-16] MEDS: EMPAGLIFLOZIN 10 MG TABLET PO (09:22)
[2018-08-16] MEDS: GABAPENTIN 400 MG CAP PO ×3 (09:22→20:35)
[2018-08-16] MEDS: APIXABAN 5 MG TABLET PO ×2 (09:22→20:35)
[2018-08-16] MEDS: DULOXETINE 20 MG CAP DR PO (09:22)
[2018-08-16] MEDS: POLYETHYLENE GLYCOL 17 GM PACKET PO ×2 (09:23→20:35)
[2018-08-16] MEDS: COLLAGENASE 5 GM (UD JAR) TOP (09:24)
[2018-08-16] MEDS: DIGOXIN 0.125 MG TAB PO (12:56)
[2018-08-16] MEDS: CEFEPIME 1GM/50 ML (PMX) 50 ML IVPB (15:20)
[2018-08-16] MEDS: VANCOMYCIN 750 MG in SOD CHLORIDE 0.9% 150 ML IVPB (16:03)
[2018-08-16] MEDS: POTASSIUM PHOSPHATE 30 MM in SOD CHLORIDE 0.9% 250 ML IVPB (17:48)
[2018-08-16] MEDS ORDERED: INSULIN GLARGINE [LANTus] (100 UNITS/ML) SYG SC (20:00)
[2018-08-16] MEDS: CASPOFUNGIN 50 MG in SOD CHLORIDE 0.9% 250 ML IVPB (20:30)
[2018-08-16] MEDS: INSULIN GLARGINE [LANTus] (100 UNITS/ML) SYG SC (20:32)
[2018-08-16] MEDS: ATORVASTATIN 40 MG TAB PO (20:35)
[2018-08-16] MEDS: FAMOTIDINE 20 MG TAB PO (20:35)
[2018-08-16] MEDS ORDERED: VANCOMYCIN IV PER PHARMACY XX (23:30)
[2018-08-17] MEDS: ACCU-CHEK XX (01:18)
[2018-08-17] MEDS: METOPROLOL 50 MG TAB PO ×3 (05:40→21:29)
[2018-08-17 05:48] LABS: ADD MAN DIFF? NO
[2018-08-17] MEDS: BUMETANIDE 1 MG INJ IV ×2 (05:48→18:28)
[2018-08-17] MEDS: INSULIN ASPART [NOVOLOG] 3 ML PEN SC ×3 (05:53→18:30)
[2018-08-17 06:00] LABS: WHITE BLOOD COUNT 6.4 10^3/ul (4.8-10.8)
[2018-08-17 06:00] LABS: ABNORMAL IP MESSAGE 1; BASOPHILS % 0.5 % (0.0-2.0); EOSINOPHILS # 0.2 10^3/ul (0.0-0.5); EOSINOPHILS % 2.4 % (0.0-7.0); HEMATOCRIT 32.6 % (42.0-52.0); HEMOGLOBIN 9.6 g/dl (14.0-18.0); LYMPHOCYTES # 1.4 10^3/ul (0.8-2.9); LYMPHOCYTES % 22.3 % (15.0-51.0); MEAN CORPUSCULAR HEMOGLOBIN 24.9 pg (29.0-33.0); MEAN CORPUSCULAR HGB CONC 29.4 g/dl (32.0-37.0); MEAN CORPUSCULAR VOLUME 84.5 fl (82.0-101.0); MONOCYTE # 1.1 10^3/ul (0.3-0.9); MONOCYTES % 17.9 % (0.0-11.0); NEUTROPHIL # 3.4 10^3/ul (1.6-7.5); NEUTROPHILS % 53.4 % (39.0-77.0); NUCLEATED RED BLOOD CELLS% 0.6 /100WBC (0.0-0.0); PLATELET COUNT 66 10^3/UL (140-415); POSITIVE DIFF @See below; RED BLOOD COUNT 3.86 10^6/ul (4.70-6.10); RED CELL DISTRIBUTION WIDTH 17.2 % (11.5-14.5)
[2018-08-17 06:39] LABS: ANION GAP 15 (5-13); Estimated GFR 45 mL/min (>60)
[2018-08-17 06:40] LABS: CHLORIDE 107 mmol/L (97-110); POTASSIUM 4.4 mmol/L (3.5-5.1); SODIUM 140 mmol/L (135-144)
[2018-08-17 06:41] LABS: BLOOD UREA NITROGEN 56 mg/dl (7-20); CARBON DIOXIDE 18 mmol/L (21-31); CREATININE 1.56 mg/dl (0.61-1.24); GLUCOSE 185 mg/dl (70-220)
[2018-08-17] MEDS: EMPAGLIFLOZIN 10 MG TABLET PO (08:00)
[2018-08-17] MEDS: INSULIN GLARGINE [LANTus] (100 UNITS/ML) SYG SC ×3 (08:00→20:46)
[2018-08-17] MEDS: POLYETHYLENE GLYCOL 17 GM PACKET PO ×2 (09:00→21:00)
[2018-08-17] MEDS: ISOSORBIDE MONONITRATE(SR)30 MG TAB PO (09:00)
[2018-08-17] MEDS: APIXABAN 5 MG TABLET PO ×2 (09:50→21:32)
[2018-08-17] MEDS: ASCORBIC ACID 500 MG TAB NGT (09:50)
[2018-08-17] MEDS: GABAPENTIN 400 MG CAP PO ×3 (09:50→21:32)
[2018-08-17] MEDS: DULOXETINE 20 MG CAP DR PO (09:50)
[2018-08-17] MEDS: metFORMIN 500 MG TAB PO (09:52)
[2018-08-17] MEDS: LACTATED RINGER'S 500 ML IV (09:53)
[2018-08-17] MEDS: MULTIVITAMINS 30 ML CUP NGT (09:53)
[2018-08-17] MEDS: COLLAGENASE 5 GM (UD JAR) TOP (09:53)
[2018-08-17] MEDS: DOXYCYCLINE 100 MG in SOD CHLORIDE 0.9% 250 ML IVPB ×2 (09:59→21:35)
[2018-08-17] MEDS: BALSAM PERU/CASTOR OIL 60 GM TUBE TOP ×2 (13:30→21:32)
[2018-08-17] MEDS: DIGOXIN 0.125 MG TAB PO (14:05)
[2018-08-17] MEDS: ACETAMINOPHEN 650MG/20.3ML CUP PO (16:48)
[2018-08-17] MEDS: CEFEPIME 1GM/50 ML (PMX) 50 ML IVPB (16:48)
[2018-08-17] MEDS: CASPOFUNGIN 50 MG in SOD CHLORIDE 0.9% 250 ML IVPB (21:25)
[2018-08-17] MEDS: FAMOTIDINE 20 MG TAB PO (21:32)
[2018-08-17] MEDS: ATORVASTATIN 40 MG TAB PO (21:32)
[2018-08-18] MEDS: INSULIN ASPART [NOVOLOG] 3 ML PEN SC ×5 (00:04→18:13)
[2018-08-18] MEDS: ACETAMINOPHEN 650MG/20.3ML CUP PO (01:05)
[2018-08-18 01:28] LABS: ADD UMIC YES; UR AMORPHOUS CRYSTAL FEW /HPF (NONE SEEN); UR ASCORBIC ACID 40 mg/dL (NEGATIVE); UR BACTERIA FEW /HPF (NONE SEEN); UR BILIRUBIN (Dip) NEGATIVE (NEGATIVE); UR BLOOD (Dip) NEGATIVE (NEGATIVE); UR CLARITY CLOUDY (CLEAR); UR COLOR YELLOW (YELLOW); UR GLUCOSE (Dip) 3+ mg/dL (NEGATIVE); UR KETONES (Dip) NEGATIVE (NEGATIVE); UR LEUKOCYTE ESTERASE (Dip) NEGATIVE Leu/ul (NEGATIVE); UR MUCUS FEW /HPF (NONE SEEN); UR NITRITE (Dip) NEGATIVE (NEGATIVE); UR RBC 2 /HPF (0-5); UR SPECIFIC GRAVITY (Dip) 1.014 (1.003-1.030); UR TOTAL PROTEIN (Dip) 1+ mg/dl (NEGATIVE); UR UROBILINOGEN (Dip) NEGATIVE (NEGATIVE); UR WBC 2 /HPF (0-5)
[2018-08-18 05:31] LABS: VANCOMYCIN,RANDOM 19.7 ug/ml
[2018-08-18 05:32] LABS: ALANINE AMINOTRANSFERASE 26 IU/L (13-69); ALBUMIN 2.6 g/dl (3.3-4.9); ALBUMIN/GLOBULIN RATIO 0.61; ALKALINE PHOSPHATASE 117 IU/L (42-121); ANION GAP 8 (5-13); ASPARTATE AMINO TRANSFERASE 32 IU/L (15-46); BILIRUBIN,INDIRECT 0.3 mg/dl (0-1.1); BILIRUBIN,TOTAL 0.3 mg/dl (0.2-1.3); BLOOD UREA NITROGEN 62 mg/dl (7-20); CALCIUM 7.9 mg/dl (8.4-10.2); CARBON DIOXIDE 25 mmol/L (21-31); CHLORIDE 114 mmol/L (97-110); CREATININE 1.96 mg/dl (0.61-1.24); Estimated GFR 34 mL/min (>60); GLUCOSE 251 mg/dl (70-220); POTASSIUM 3.5 mmol/L (3.5-5.1); SODIUM 147 mmol/L (135-144); TOTAL PROTEIN 6.8 g/dl (6.1-8.1)
[2018-08-18] MEDS: METOPROLOL 50 MG TAB PO ×3 (05:59→21:29)
[2018-08-18] MEDS: BUMETANIDE 1 MG INJ IV ×2 (05:59→18:10)
[2018-08-18] MEDS: ISOSORBIDE MONONITRATE(SR)30 MG TAB PO (07:52)
[2018-08-18] MEDS: POLYETHYLENE GLYCOL 17 GM PACKET PO ×2 (07:57→21:00)
[2018-08-18] MEDS ORDERED: GLUCOSE GEL 15 GRAM TUBE BUCCAL (08:30)
[2018-08-18] MEDS ORDERED: GLUCOSE GEL 15 GRAM TUBE PO ×2 (08:30)
[2018-08-18] MEDS ORDERED: GLUCAGON 1 MG INJ IM (08:30)
[2018-08-18] MEDS ORDERED: DEXTROSE 50% 50 ML SYRINGE IV (08:30)
[2018-08-18] MEDS: MULTIVITAMINS 30 ML CUP NGT (10:42)
[2018-08-18] MEDS: APIXABAN 5 MG TABLET PO ×2 (10:42→21:28)
[2018-08-18] MEDS: DULOXETINE 20 MG CAP DR PO (10:42)
[2018-08-18] MEDS: GABAPENTIN 400 MG CAP PO ×3 (10:43→21:28)
[2018-08-18] MEDS: EMPAGLIFLOZIN 10 MG TABLET PO (10:43)
[2018-08-18] MEDS: metFORMIN 500 MG TAB PO (10:43)
[2018-08-18] MEDS: ASCORBIC ACID 500 MG TAB NGT (10:43)
[2018-08-18] MEDS: BALSAM PERU/CASTOR OIL 60 GM TUBE TOP ×2 (10:44→21:29)
[2018-08-18] MEDS: DOXYCYCLINE 100 MG in SOD CHLORIDE 0.9% 250 ML IVPB ×2 (10:44→21:40)
[2018-08-18] MEDS: COLLAGENASE 5 GM (UD JAR) TOP (10:44)
[2018-08-18] MEDS: INSULIN GLARGINE [LANTus] (100 UNITS/ML) SYG SC ×2 (10:47→20:41)
[2018-08-18] MEDS: POTASSIUM CHLORIDE 50 ML IVPB ×2 (12:12→13:24)
[2018-08-18] MEDS: DIGOXIN 0.125 MG TAB PO (13:39)
[2018-08-18] MEDS: CEFEPIME 1GM/50 ML (PMX) 50 ML IVPB (16:45)
[2018-08-18] MEDS: CASPOFUNGIN 50 MG in SOD CHLORIDE 0.9% 250 ML IVPB (20:35)
[2018-08-18] MEDS: FAMOTIDINE 20 MG TAB PO (21:28)
[2018-08-18] MEDS: ATORVASTATIN 40 MG TAB PO (21:28)
[2018-08-19] MEDS: INSULIN ASPART [NOVOLOG] 3 ML PEN SC ×5 (01:17→23:41)
[2018-08-19 04:53] LABS: ADD MAN DIFF? NO
[2018-08-19 04:54] LABS: ABNORMAL IP MESSAGE 1; BASOPHILS % 0.3 % (0.0-2.0); EOSINOPHILS # 0.2 10^3/ul (0.0-0.5); EOSINOPHILS % 2.3 % (0.0-7.0); HEMATOCRIT 32.2 % (42.0-52.0); HEMOGLOBIN 9.2 g/dl (14.0-18.0); LYMPHOCYTES # 1.1 10^3/ul (0.8-2.9); LYMPHOCYTES % 14.9 % (15.0-51.0); MEAN CORPUSCULAR HEMOGLOBIN 24.4 pg (29.0-33.0); MEAN CORPUSCULAR HGB CONC 28.6 g/dl (32.0-37.0); MEAN CORPUSCULAR VOLUME 85.4 fl (82.0-101.0); MEAN PLATELET VOLUME 13.6 fl (7.4-10.4); MONOCYTE # 0.7 10^3/ul (0.3-0.9); MONOCYTES % 8.7 % (0.0-11.0); NEUTROPHIL # 5.4 10^3/ul (1.6-7.5); NEUTROPHILS % 72.9 % (39.0-77.0); PLATELET COUNT 132 10^3/UL (140-415); POSITIVE DIFF @See below; RED BLOOD COUNT 3.77 10^6/ul (4.70-6.10); RED CELL DISTRIBUTION WIDTH 16.9 % (11.5-14.5)
[2018-08-19 04:54] LABS: WHITE BLOOD COUNT 7.5 10^3/ul (4.8-10.8)
[2018-08-19 05:34] LABS: ANION GAP 8 (5-13); BLOOD UREA NITROGEN 59 mg/dl (7-20); CALCIUM 8.4 mg/dl (8.4-10.2); CARBON DIOXIDE 22 mmol/L (21-31); CHLORIDE 117 mmol/L (97-110); Estimated GFR 43 mL/min (>60); GLUCOSE 196 mg/dl (70-220); POTASSIUM 3.5 mmol/L (3.5-5.1); SODIUM 147 mmol/L (135-144)
[2018-08-19] MEDS: METOPROLOL 50 MG TAB PO ×3 (05:42→22:15)
[2018-08-19] MEDS: BUMETANIDE 1 MG INJ IV ×2 (05:42→17:41)
[2018-08-19] MEDS: POLYETHYLENE GLYCOL 17 GM PACKET PO ×2 (09:00→20:49)
[2018-08-19] MEDS: ASCORBIC ACID 500 MG TAB NGT (10:16)
[2018-08-19] MEDS: metFORMIN 500 MG TAB PO (10:16)
[2018-08-19] MEDS: APIXABAN 5 MG TABLET PO ×2 (10:16→20:47)
[2018-08-19] MEDS: EMPAGLIFLOZIN 10 MG TABLET PO (10:16)
[2018-08-19] MEDS: GABAPENTIN 400 MG CAP PO ×3 (10:17→20:48)
[2018-08-19] MEDS: DULOXETINE 20 MG CAP DR PO (10:20)
[2018-08-19] MEDS: MULTIVITAMINS 30 ML CUP NGT (10:21)
[2018-08-19] MEDS: COLLAGENASE 5 GM (UD JAR) TOP (10:21)
[2018-08-19] MEDS: BALSAM PERU/CASTOR OIL 60 GM TUBE TOP ×2 (10:21→20:48)
[2018-08-19] MEDS: VANCOMYCIN 500 MG (PMX) 100 ML IVPB (10:22)
[2018-08-19 10:23] LABS: AADO2 Arterial 66.7 mmHg (7.0-24.0); Allen Test ACCEPTAB; Arterial Base Excess -4.1 mmol/L (-3.0-3); Arterial Blood Gas Oxygen Sat 97.9 mmHG (95.0-98.0); Arterial COHb 0.1 % (0.0-3.0); Arterial Fraction of Oxyhgb 97.7 % (93.0-99.0); Arterial HCO3 20.4 mmol/L (22.0-26.0); Arterial MetHb 0.1 % (0.0-1.5); Arterial Total Hemglobin 10.9 g/dl (12.0-18.0); Arterial pCO2 35.2 mmhg (35-45); MODE VENT - AC; Site Right Radial
[2018-08-19] MEDS: INSULIN GLARGINE [LANTus] (100 UNITS/ML) SYG SC (10:23)
[2018-08-19] MEDS: DOXYCYCLINE 100 MG in SOD CHLORIDE 0.9% 250 ML IVPB (12:24)
[2018-08-19] MEDS: DIGOXIN 0.125 MG TAB PO (13:20)
[2018-08-19] MEDS: RIFAMPIN 300 MG CAP PO (16:45)
[2018-08-19] MEDS: CASPOFUNGIN 50 MG in SOD CHLORIDE 0.9% 250 ML IVPB (20:06)
[2018-08-19] MEDS: ATORVASTATIN 40 MG TAB PO (20:48)
[2018-08-19] MEDS: FAMOTIDINE 20 MG TAB PO (20:48)
[2018-08-19] MEDS: NPH, HUMAN INSULIN ISOPHANE 3ML VIAL SC (22:18)
[2018-08-20 05:09] LABS: ADD MAN DIFF? NO
[2018-08-20 05:11] LABS: AADO2 Arterial 73.7 mmHg (7.0-24.0); Allen Test ACCEPTAB; Arterial Base Excess -3.3 mmol/L (-3.0-3); Arterial COHb 0.3 % (0.0-3.0); Arterial Fraction of Oxyhgb 97.4 % (93.0-99.0); Arterial HCO3 20.3 mmol/L (22.0-26.0); Arterial MetHb 0.3 % (0.0-1.5); Arterial Total Hemglobin 9.6 g/dl (12.0-18.0); Arterial pCO2 31.1 mmhg (35-45); MODE VENT - AC; Site Right Radial
[2018-08-20 05:14] LABS: WHITE BLOOD COUNT 7.3 10^3/ul (4.8-10.8)
[2018-08-20 05:14] LABS: ABNORMAL IP MESSAGE 1; BASOPHILS % 0.4 % (0.0-2.0); EOSINOPHILS # 0.1 10^3/ul (0.0-0.5); EOSINOPHILS % 1.9 % (0.0-7.0); HEMATOCRIT 32.8 % (42.0-52.0); HEMOGLOBIN 9.5 g/dl (14.0-18.0); LYMPHOCYTES # 1.3 10^3/ul (0.8-2.9); LYMPHOCYTES % 17.9 % (15.0-51.0); MEAN CORPUSCULAR HEMOGLOBIN 24.1 pg (29.0-33.0); MEAN CORPUSCULAR VOLUME 83.2 fl (82.0-101.0); MEAN PLATELET VOLUME 13.4 fl (7.4-10.4); MONOCYTE # 0.6 10^3/ul (0.3-0.9); MONOCYTES % 8.6 % (0.0-11.0); NEUTROPHIL # 5.2 10^3/ul (1.6-7.5); NEUTROPHILS % 70.7 % (39.0-77.0); PLATELET COUNT 158 10^3/UL (140-415); POSITIVE DIFF @See below; RED BLOOD COUNT 3.94 10^6/ul (4.70-6.10); RED CELL DISTRIBUTION WIDTH 16.5 % (11.5-14.5)
[2018-08-20 05:29] LABS: LACTIC ACID 1.1 mmol/L (0.5-2.0)
[2018-08-20] MEDS: BUMETANIDE 1 MG INJ IV ×2 (05:33→17:03)
[2018-08-20] MEDS: METOPROLOL 50 MG TAB PO ×3 (05:34→21:18)
[2018-08-20] MEDS: NPH, HUMAN INSULIN ISOPHANE 3ML VIAL SC ×3 (05:52→23:35)
[2018-08-20] MEDS: INSULIN ASPART [NOVOLOG] 3 ML PEN SC ×3 (05:53→17:14)
[2018-08-20 06:05] LABS: ANION GAP 10 (5-13); BLOOD UREA NITROGEN 51 mg/dl (7-20); CALCIUM 8.3 mg/dl (8.4-10.2); CARBON DIOXIDE 20 mmol/L (21-31); CHLORIDE 117 mmol/L (97-110); CREATININE 1.18 mg/dl (0.61-1.24); Estimated GFR > 60 mL/min (>60); GLUCOSE 200 mg/dl (70-220); POTASSIUM 3.7 mmol/L (3.5-5.1); SODIUM 147 mmol/L (135-144)
[2018-08-20] MEDS: BALSAM PERU/CASTOR OIL 60 GM TUBE TOP ×2 (09:13→21:27)
[2018-08-20] MEDS: COLLAGENASE 5 GM (UD JAR) TOP (09:13)
[2018-08-20] MEDS: POLYETHYLENE GLYCOL 17 GM PACKET PO ×2 (09:13→21:17)
[2018-08-20] MEDS: MULTIVITAMINS 30 ML CUP NGT (09:13)
[2018-08-20] MEDS: DULOXETINE 20 MG CAP DR PO (09:13)
[2018-08-20] MEDS: RIFAMPIN 300 MG CAP PO (09:14)
[2018-08-20] MEDS: APIXABAN 5 MG TABLET PO ×2 (09:14→21:19)
[2018-08-20] MEDS: GABAPENTIN 400 MG CAP PO ×3 (09:14→21:17)
[2018-08-20] MEDS: ASCORBIC ACID 500 MG TAB NGT (09:14)
[2018-08-20] MEDS: DIGOXIN 0.125 MG TAB PO (12:59)
[2018-08-20] MEDS: CASPOFUNGIN 50 MG in SOD CHLORIDE 0.9% 250 ML IVPB (20:00)
[2018-08-20] MEDS: ATORVASTATIN 40 MG TAB PO (21:19)
[2018-08-20] MEDS: FAMOTIDINE 20 MG TAB PO (21:19)
[2018-08-21] MEDS: INSULIN ASPART [NOVOLOG] 3 ML PEN SC ×4 (00:30→17:18)
[2018-08-21 05:28] LABS: AADO2 Arterial 65.4 mmHg (7.0-24.0); Allen Test ACCEPTAB; Arterial Base Excess -1.8 mmol/L (-3.0-3); Arterial Blood Gas Oxygen Sat 97.9 mmHG (95.0-98.0); Arterial COHb 0.1 % (0.0-3.0); Arterial Fraction of Oxyhgb 97.6 % (93.0-99.0); Arterial MetHb 0.2 % (0.0-1.5); Arterial Total Hemglobin 10.9 g/dl (12.0-18.0); Arterial pCO2 34.2 mmhg (35-45); MODE VENT-PC; Site Left Radial
[2018-08-21 05:36] LABS: ADD MAN DIFF? NO
[2018-08-21 05:38] LABS: WHITE BLOOD COUNT 6.7 10^3/ul (4.8-10.8)
[2018-08-21 05:38] LABS: BASOPHILS % 0.4 % (0.0-2.0); EOSINOPHILS # 0.1 10^3/ul (0.0-0.5); EOSINOPHILS % 1.9 % (0.0-7.0); HEMATOCRIT 31.6 % (42.0-52.0); HEMOGLOBIN 9.4 g/dl (14.0-18.0); LYMPHOCYTES # 1.6 10^3/ul (0.8-2.9); LYMPHOCYTES % 23.4 % (15.0-51.0); MEAN CORPUSCULAR HEMOGLOBIN 24.4 pg (29.0-33.0); MEAN CORPUSCULAR HGB CONC 29.7 g/dl (32.0-37.0); MEAN CORPUSCULAR VOLUME 82.1 fl (82.0-101.0); MEAN PLATELET VOLUME 12.3 fl (7.4-10.4); MONOCYTE # 0.6 10^3/ul (0.3-0.9); MONOCYTES % 9.4 % (0.0-11.0); NEUTROPHIL # 4.3 10^3/ul (1.6-7.5); NEUTROPHILS % 64.3 % (39.0-77.0); PLATELET COUNT 177 10^3/UL (140-415); RED BLOOD COUNT 3.85 10^6/ul (4.70-6.10); RED CELL DISTRIBUTION WIDTH 16.7 % (11.5-14.5)
[2018-08-21] MEDS: METOPROLOL 50 MG TAB PO ×3 (06:00→21:28)
[2018-08-21] MEDS: BUMETANIDE 1 MG INJ IV ×2 (06:07→17:00)
[2018-08-21] MEDS: NPH, HUMAN INSULIN ISOPHANE 3ML VIAL SC ×3 (06:10→23:22)
[2018-08-21 06:32] LABS: VANCOMYCIN,RANDOM 17.3 ug/ml
[2018-08-21 08:02] LABS: ANION GAP 7 (5-13); BLOOD UREA NITROGEN 53 mg/dl (7-20); CALCIUM 8.4 mg/dl (8.4-10.2); CARBON DIOXIDE 23 mmol/L (21-31); CHLORIDE 117 mmol/L (97-110); CREATININE 1.29 mg/dl (0.61-1.24); Estimated GFR 56 mL/min (>60); GLUCOSE 214 mg/dl (70-220); POTASSIUM 3.2 mmol/L (3.5-5.1); SODIUM 147 mmol/L (135-144)
[2018-08-21] MEDS: POLYETHYLENE GLYCOL 17 GM PACKET PO (08:44)
[2018-08-21] MEDS: MULTIVITAMINS 30 ML CUP NGT (08:44)
[2018-08-21] MEDS: ASCORBIC ACID 500 MG TAB NGT (08:44)
[2018-08-21] MEDS: DULOXETINE 20 MG CAP DR PO (08:45)
[2018-08-21] MEDS: BALSAM PERU/CASTOR OIL 60 GM TUBE TOP ×2 (08:45→21:29)
[2018-08-21] MEDS: RIFAMPIN 300 MG CAP PO (08:45)
[2018-08-21] MEDS: GABAPENTIN 400 MG CAP PO ×3 (08:45→21:27)
[2018-08-21] MEDS: APIXABAN 5 MG TABLET PO ×2 (08:47→21:27)
[2018-08-21] MEDS: COLLAGENASE 5 GM (UD JAR) TOP (08:47)
[2018-08-21] MEDS: DIGOXIN 0.125 MG TAB PO (13:02)
[2018-08-21] MEDS: CASPOFUNGIN 50 MG in SOD CHLORIDE 0.9% 250 ML IVPB (20:35)
[2018-08-21] MEDS: FAMOTIDINE 20 MG TAB PO (21:27)
[2018-08-21] MEDS: ATORVASTATIN 40 MG TAB PO (21:27)
[2018-08-21] MEDS: VANCOMYCIN 500 MG (PMX) 100 ML IVPB (23:15)
[2018-08-22] MEDS: INSULIN ASPART [NOVOLOG] 3 ML PEN SC ×5 (00:23→23:33)
[2018-08-22 05:00] LABS: ADD MAN DIFF? NO
[2018-08-22 05:03] LABS: WHITE BLOOD COUNT 7.1 10^3/ul (4.8-10.8)
[2018-08-22 05:03] LABS: BASOPHILS % 0.4 % (0.0-2.0); EOSINOPHILS # 0.1 10^3/ul (0.0-0.5); EOSINOPHILS % 1.8 % (0.0-7.0); HEMATOCRIT 31.7 % (42.0-52.0); HEMOGLOBIN 9.4 g/dl (14.0-18.0); LYMPHOCYTES # 1.5 10^3/ul (0.8-2.9); LYMPHOCYTES % 20.6 % (15.0-51.0); MEAN CORPUSCULAR HEMOGLOBIN 24.3 pg (29.0-33.0); MEAN CORPUSCULAR HGB CONC 29.7 g/dl (32.0-37.0); MEAN CORPUSCULAR VOLUME 81.9 fl (82.0-101.0); MEAN PLATELET VOLUME 11.9 fl (7.4-10.4); MONOCYTE # 0.6 10^3/ul (0.3-0.9); MONOCYTES % 8.8 % (0.0-11.0); NEUTROPHIL # 4.8 10^3/ul (1.6-7.5); NEUTROPHILS % 67.8 % (39.0-77.0); PLATELET COUNT 185 10^3/UL (140-415); RED BLOOD COUNT 3.87 10^6/ul (4.70-6.10); RED CELL DISTRIBUTION WIDTH 16.7 % (11.5-14.5)
[2018-08-22 05:37] LABS: ANION GAP 8 (5-13); BLOOD UREA NITROGEN 56 mg/dl (7-20); CALCIUM 8.4 mg/dl (8.4-10.2); CARBON DIOXIDE 25 mmol/L (21-31); CHLORIDE 113 mmol/L (97-110); CREATININE 1.26 mg/dl (0.61-1.24); Estimated GFR 57 mL/min (>60); GLUCOSE 218 mg/dl (70-220); MAGNESIUM 2.4 mg/dl (1.7-2.5); PHOSPHORUS 2.7 mg/dl (2.5-4.9); POTASSIUM 3.4 mmol/L (3.5-5.1); SODIUM 146 mmol/L (135-144)
[2018-08-22] MEDS: BUMETANIDE 1 MG INJ IV ×2 (06:17→17:19)
[2018-08-22] MEDS: NPH, HUMAN INSULIN ISOPHANE 3ML VIAL SC ×4 (06:19→22:00)
[2018-08-22] MEDS: METOPROLOL 50 MG TAB PO ×3 (06:25→22:00)
[2018-08-22] MEDS: ASCORBIC ACID 500 MG TAB NGT (08:34)
[2018-08-22] MEDS: RIFAMPIN 300 MG CAP PO (08:34)
[2018-08-22] MEDS: DULOXETINE 20 MG CAP DR PO (08:34)
[2018-08-22] MEDS: APIXABAN 5 MG TABLET PO ×2 (08:34→21:15)
[2018-08-22] MEDS: MULTIVITAMINS 30 ML CUP NGT (08:34)
[2018-08-22] MEDS: COLLAGENASE 5 GM (UD JAR) TOP (08:34)
[2018-08-22] MEDS: GABAPENTIN 400 MG CAP PO ×3 (08:34→20:23)
[2018-08-22] MEDS: BALSAM PERU/CASTOR OIL 60 GM TUBE TOP ×2 (08:35→21:00)
[2018-08-22] MEDS: DIGOXIN 0.125 MG TAB PO (12:06)
[2018-08-22] MEDS: POTASSIUM CHLORIDE 50 ML IVPB ×2 (12:39→13:25)
[2018-08-22] MEDS: CASPOFUNGIN 50 MG in SOD CHLORIDE 0.9% 250 ML IVPB (20:22)
[2018-08-22] MEDS: FAMOTIDINE 20 MG TAB PO (20:23)
[2018-08-22] MEDS: ATORVASTATIN 40 MG TAB PO (20:23)
[2018-08-22] MEDS: ACETAMINOPHEN 650MG/20.3ML CUP PO (20:23)
[2018-08-23] MEDS: BUMETANIDE 1 MG INJ IV ×2 (05:02→17:51)
[2018-08-23 05:07] LABS: ADD MAN DIFF? NO
[2018-08-23] MEDS: INSULIN ASPART [NOVOLOG] 3 ML PEN SC ×3 (05:13→18:10)
[2018-08-23 05:37] LABS: ANION GAP 7 (5-13); BLOOD UREA NITROGEN 65 mg/dl (7-20); CALCIUM 8.4 mg/dl (8.4-10.2); CARBON DIOXIDE 24 mmol/L (21-31); CHLORIDE 112 mmol/L (97-110); CREATININE 1.27 mg/dl (0.61-1.24); Estimated GFR 57 mL/min (>60); GLUCOSE 154 mg/dl (70-220); POTASSIUM 3.6 mmol/L (3.5-5.1)
[2018-08-23] MEDS: METOPROLOL 50 MG TAB PO ×3 (06:00→22:42)
[2018-08-23] MEDS: NPH, HUMAN INSULIN ISOPHANE 3ML VIAL SC ×3 (06:00→22:00)
[2018-08-23 06:13] LABS: SODIUM 144 mmol/L (135-144)
[2018-08-23 06:46] LABS: PHOSPHORUS 3.2 mg/dl (2.5-4.9)
[2018-08-23 06:46] LABS: MAGNESIUM 2.5 mg/dl (1.7-2.5)
[2018-08-23 07:49] LABS: WHITE BLOOD COUNT 4.8 10^3/ul (4.8-10.8)
[2018-08-23 07:49] LABS: BASOPHILS % 0.4 % (0.0-2.0); EOSINOPHILS # 0.1 10^3/ul (0.0-0.5); EOSINOPHILS % 2.3 % (0.0-7.0); HEMATOCRIT 29.2 % (42.0-52.0); HEMOGLOBIN 8.7 g/dl (14.0-18.0); LYMPHOCYTES # 1.4 10^3/ul (0.8-2.9); LYMPHOCYTES % 28.9 % (15.0-51.0); MEAN CORPUSCULAR HEMOGLOBIN 24.5 pg (29.0-33.0); MEAN CORPUSCULAR HGB CONC 29.8 g/dl (32.0-37.0); MEAN CORPUSCULAR VOLUME 82.3 fl (82.0-101.0); MEAN PLATELET VOLUME 11.9 fl (7.4-10.4); MONOCYTE # 0.5 10^3/ul (0.3-0.9); MONOCYTES % 10.7 % (0.0-11.0); NEUTROPHIL # 2.7 10^3/ul (1.6-7.5); NEUTROPHILS % 57.3 % (39.0-77.0); PLATELET COUNT 159 10^3/UL (140-415); RED BLOOD COUNT 3.55 10^6/ul (4.70-6.10); RED CELL DISTRIBUTION WIDTH 16.6 % (11.5-14.5)
[2018-08-23] MEDS: APIXABAN 5 MG TABLET PO (09:00)
[2018-08-23] MEDS: DULOXETINE 20 MG CAP DR PO ×2 (09:00→09:08)
[2018-08-23] MEDS: ASCORBIC ACID 500 MG TAB NGT ×2 (09:00→09:09)
[2018-08-23] MEDS: COLLAGENASE 5 GM (UD JAR) TOP ×2 (09:00→09:50)
[2018-08-23] MEDS: MULTIVITAMINS 30 ML CUP NGT ×2 (09:00→09:08)
[2018-08-23] MEDS: RIFAMPIN 300 MG CAP PO ×2 (09:00→09:08)
[2018-08-23] MEDS: GABAPENTIN 400 MG CAP PO ×3 (09:09→20:25)
[2018-08-23] MEDS: BALSAM PERU/CASTOR OIL 60 GM TUBE TOP ×2 (09:50→22:38)
[2018-08-23 10:54] LABS: INR 1.39; PROTIME 17.3 Sec (11.9-14.9); PT RATIO 1.4
[2018-08-23] MEDS: DIGOXIN 0.125 MG TAB PO (12:33)
[2018-08-23] MEDS ORDERED: SEVOFLURANE 15 MIN (19:00)
[2018-08-23] MEDS ORDERED: MIDAZOLAM 1 MG/ML 2 ML INJ (19:47)
[2018-08-23] MEDS ORDERED: FENTAnyl 50 MCG/ML VIAL (19:47)
[2018-08-23] MEDS ORDERED: CEFAZOLIN 1 GM INJ (19:52)
[2018-08-23] MEDS: PROPOFOL 20 ML (20:00)
[2018-08-23] MEDS: EPINEPHrine 0.1 MG/ML SYG (20:00)
[2018-08-23] MEDS: CEFAZOLIN 2 GM/50 ML (PMX) 50 ML IVPB (20:00)
[2018-08-23] MEDS: LIDOCAINE 1%/EPI 30 ML INJ (20:07)
[2018-08-23] MEDS: ATORVASTATIN 40 MG TAB PO (20:25)
[2018-08-23] MEDS: FAMOTIDINE 20 MG TAB PO (20:25)
[2018-08-23] MEDS ORDERED: PROPOFOL 20 ML (20:28)
[2018-08-23] MEDS ORDERED: LIDOCAINE 2% (SDV) 5 ML INJ (20:28)
[2018-08-23] MEDS ORDERED: ROCURONIUM 50 MG INJ (20:28)
[2018-08-23] MEDS: HYDROmorphONE 0.5 MG/0.5 ML SYG IV (22:35)
[2018-08-24] MEDS: INSULIN ASPART [NOVOLOG] 3 ML PEN SC ×5 (00:49→23:38)
[2018-08-24 04:49] LABS: ADD MAN DIFF? NO
[2018-08-24 04:56] LABS: BASOPHILS % 0.4 % (0.0-2.0); EOSINOPHILS # 0.1 10^3/ul (0.0-0.5); EOSINOPHILS % 2.7 % (0.0-7.0); HEMATOCRIT 30.7 % (42.0-52.0); LYMPHOCYTES # 1.2 10^3/ul (0.8-2.9); LYMPHOCYTES % 22.4 % (15.0-51.0); MEAN CORPUSCULAR HEMOGLOBIN 23.9 pg (29.0-33.0); MEAN CORPUSCULAR HGB CONC 29.3 g/dl (32.0-37.0); MEAN CORPUSCULAR VOLUME 81.6 fl (82.0-101.0); MEAN PLATELET VOLUME 10.6 fl (7.4-10.4); MONOCYTE # 0.5 10^3/ul (0.3-0.9); MONOCYTES % 9.9 % (0.0-11.0); NEUTROPHIL # 3.3 10^3/ul (1.6-7.5); NEUTROPHILS % 64.2 % (39.0-77.0); PLATELET COUNT 174 10^3/UL (140-415); RED BLOOD COUNT 3.76 10^6/ul (4.70-6.10); RED CELL DISTRIBUTION WIDTH 17.2 % (11.5-14.5)
[2018-08-24 04:56] LABS: WHITE BLOOD COUNT 5.1 10^3/ul (4.8-10.8)
[2018-08-24] MEDS: HYDROmorphONE 0.5 MG/0.5 ML SYG IV (04:59)
[2018-08-24 05:25] LABS: ANION GAP 11 (5-13); BLOOD UREA NITROGEN 47 mg/dl (7-20); CALCIUM 8.5 mg/dl (8.4-10.2); CARBON DIOXIDE 27 mmol/L (21-31); CHLORIDE 113 mmol/L (97-110); CREATININE 1.03 mg/dl (0.61-1.24); Estimated GFR > 60 mL/min (>60); GLUCOSE 180 mg/dl (70-220); MAGNESIUM 2.3 mg/dl (1.7-2.5); POTASSIUM 3.5 mmol/L (3.5-5.1); SODIUM 151 mmol/L (135-144)
[2018-08-24] MEDS: METOPROLOL 50 MG TAB PO ×3 (05:53→21:10)
[2018-08-24] MEDS: BUMETANIDE 1 MG INJ IV ×2 (06:15→17:57)
[2018-08-24] MEDS: NPH, HUMAN INSULIN ISOPHANE 3ML VIAL SC ×3 (06:17→21:17)
[2018-08-24] MEDS: MULTIVITAMINS 30 ML CUP NGT (08:59)
[2018-08-24] MEDS: BALSAM PERU/CASTOR OIL 60 GM TUBE TOP ×2 (08:59→20:17)
[2018-08-24] MEDS: RIFAMPIN 300 MG CAP PO (09:00)
[2018-08-24] MEDS: GABAPENTIN 400 MG CAP PO ×3 (09:00→20:17)
[2018-08-24] MEDS: ASCORBIC ACID 500 MG TAB NGT (09:00)
[2018-08-24] MEDS: DULOXETINE 20 MG CAP DR PO (09:01)
[2018-08-24] MEDS: DIGOXIN 0.125 MG TAB PO (16:22)
[2018-08-24] MEDS: ATORVASTATIN 40 MG TAB PO (20:17)
[2018-08-24] MEDS: ACETAMINOPHEN 650MG/20.3ML CUP PO (20:17)
[2018-08-24] MEDS: FAMOTIDINE 20 MG TAB PO (20:17)
[2018-08-24] MEDS: VANCOMYCIN 500 MG (PMX) 100 ML IVPB (21:17)
[2018-08-25] MEDS: ACETAMINOPHEN 650MG/20.3ML CUP PO ×2 (04:53→11:36)
[2018-08-25] MEDS: BUMETANIDE 1 MG INJ IV ×2 (05:40→17:21)
[2018-08-25] MEDS: METOPROLOL 50 MG TAB PO ×3 (05:42→22:22)
[2018-08-25 05:44] LABS: ADD MAN DIFF? NO
[2018-08-25] MEDS: NPH, HUMAN INSULIN ISOPHANE 3ML VIAL SC ×3 (05:45→22:24)
[2018-08-25 05:51] LABS: BASOPHILS % 0.7 % (0.0-2.0); EOSINOPHILS # 0.1 10^3/ul (0.0-0.5); EOSINOPHILS % 2.4 % (0.0-7.0); HEMATOCRIT 31.2 % (42.0-52.0); HEMOGLOBIN 9.1 g/dl (14.0-18.0); LYMPHOCYTES # 1.2 10^3/ul (0.8-2.9); LYMPHOCYTES % 28.6 % (15.0-51.0); MEAN CORPUSCULAR HEMOGLOBIN 24.3 pg (29.0-33.0); MEAN CORPUSCULAR HGB CONC 29.2 g/dl (32.0-37.0); MEAN CORPUSCULAR VOLUME 83.2 fl (82.0-101.0); MEAN PLATELET VOLUME 11.8 fl (7.4-10.4); MONOCYTE # 0.4 10^3/ul (0.3-0.9); MONOCYTES % 8.9 % (0.0-11.0); NEUTROPHIL # 2.5 10^3/ul (1.6-7.5); NEUTROPHILS % 59.2 % (39.0-77.0); PLATELET COUNT 172 10^3/UL (140-415); RED BLOOD COUNT 3.75 10^6/ul (4.70-6.10); RED CELL DISTRIBUTION WIDTH 17.5 % (11.5-14.5)
[2018-08-25 05:51] LABS: WHITE BLOOD COUNT 4.2 10^3/ul (4.8-10.8)
[2018-08-25] MEDS: INSULIN ASPART [NOVOLOG] 3 ML PEN SC ×3 (05:51→17:30)
[2018-08-25 06:42] LABS: ANION GAP 8 (5-13); BLOOD UREA NITROGEN 46 mg/dl (7-20); CALCIUM 8.6 mg/dl (8.4-10.2); CARBON DIOXIDE 29 mmol/L (21-31); CHLORIDE 113 mmol/L (97-110); CREATININE 0.94 mg/dl (0.61-1.24); Estimated GFR > 60 mL/min (>60); GLUCOSE 180 mg/dl (70-220); MAGNESIUM 2.4 mg/dl (1.7-2.5); PHOSPHORUS 3.1 mg/dl (2.5-4.9); POTASSIUM 4.2 mmol/L (3.5-5.1); SODIUM 150 mmol/L (135-144)
[2018-08-25] MEDS: MULTIVITAMINS 30 ML CUP NGT (08:59)
[2018-08-25] MEDS: GABAPENTIN 400 MG CAP PO ×3 (08:59→21:31)
[2018-08-25] MEDS: BALSAM PERU/CASTOR OIL 60 GM TUBE TOP ×2 (08:59→21:31)
[2018-08-25] MEDS: RIFAMPIN 300 MG CAP PO (08:59)
[2018-08-25] MEDS: DULOXETINE 20 MG CAP DR PO (08:59)
[2018-08-25] MEDS: ASCORBIC ACID 500 MG TAB NGT (08:59)
[2018-08-25] MEDS: DEXTROSE 5% 1,000 ML IV (09:47)
[2018-08-25] MEDS: DIGOXIN 0.125 MG TAB PO (12:23)
[2018-08-25 12:50] LABS: ADD UMIC YES; UR ASCORBIC ACID 40 mg/dL (NEGATIVE); UR BACTERIA FEW /HPF (NONE SEEN); UR BILIRUBIN (Dip) NEGATIVE (NEGATIVE); UR BLOOD (Dip) NEGATIVE (NEGATIVE); UR CLARITY SLIGHTLY CLOUDY (CLEAR); UR COLOR AMBER (YELLOW); UR GLUCOSE (Dip) NEGATIVE (NEGATIVE); UR KETONES (Dip) NEGATIVE (NEGATIVE); UR LEUKOCYTE ESTERASE (Dip) NEGATIVE Leu/ul (NEGATIVE); UR MUCUS FEW /HPF (NONE SEEN); UR NITRITE (Dip) NEGATIVE (NEGATIVE); UR RBC 0 /HPF (0-5); UR SPECIFIC GRAVITY (Dip) 1.018 (1.003-1.030); UR SQUAMOUS EPITHELIAL CELL FEW /HPF (FEW); UR TOTAL PROTEIN (Dip) 2+ mg/dl (NEGATIVE); UR UROBILINOGEN (Dip) NEGATIVE (NEGATIVE); UR WBC 4 /HPF (0-5)
[2018-08-25] MEDS: FAMOTIDINE 20 MG TAB PO (21:31)
[2018-08-25] MEDS: ATORVASTATIN 40 MG TAB PO (21:31)
[2018-08-25 22:30] LABS: ANION GAP 5 (5-13); BLOOD UREA NITROGEN 47 mg/dl (7-20); CALCIUM 8.2 mg/dl (8.4-10.2); CARBON DIOXIDE 28 mmol/L (21-31); CHLORIDE 108 mmol/L (97-110); CREATININE 0.87 mg/dl (0.61-1.24); Estimated GFR > 60 mL/min (>60); GLUCOSE 263 mg/dl (70-220); MAGNESIUM 2.3 mg/dl (1.7-2.5); POTASSIUM 4.5 mmol/L (3.5-5.1); SODIUM 141 mmol/L (135-144)
[2018-08-26] MEDS: INSULIN ASPART [NOVOLOG] 3 ML PEN SC ×4 (00:35→17:36)
[2018-08-26 04:35] LABS: ADD MAN DIFF? NO
[2018-08-26 04:37] LABS: BASOPHILS % 0.6 % (0.0-2.0); EOSINOPHILS # 0.1 10^3/ul (0.0-0.5); EOSINOPHILS % 2.4 % (0.0-7.0); HEMATOCRIT 31.9 % (42.0-52.0); HEMOGLOBIN 9.4 g/dl (14.0-18.0); LYMPHOCYTES # 1.2 10^3/ul (0.8-2.9); MEAN CORPUSCULAR HEMOGLOBIN 24.5 pg (29.0-33.0); MEAN CORPUSCULAR HGB CONC 29.5 g/dl (32.0-37.0); MEAN CORPUSCULAR VOLUME 83.3 fl (82.0-101.0); MEAN PLATELET VOLUME 11.1 fl (7.4-10.4); MONOCYTE # 0.5 10^3/ul (0.3-0.9); MONOCYTES % 9.3 % (0.0-11.0); NEUTROPHIL # 3.1 10^3/ul (1.6-7.5); NEUTROPHILS % 63.3 % (39.0-77.0); PLATELET COUNT 180 10^3/UL (140-415); RED BLOOD COUNT 3.83 10^6/ul (4.70-6.10); RED CELL DISTRIBUTION WIDTH 17.8 % (11.5-14.5)
[2018-08-26 04:56] LABS: ALANINE AMINOTRANSFERASE 10 IU/L (13-69); ALBUMIN 3.1 g/dl (3.3-4.9); ALBUMIN/GLOBULIN RATIO 0.62; ALKALINE PHOSPHATASE 164 IU/L (42-121); ANION GAP 10 (5-13); ASPARTATE AMINO TRANSFERASE 41 IU/L (15-46); BILIRUBIN,INDIRECT 0.3 mg/dl (0-1.1); BILIRUBIN,TOTAL 0.3 mg/dl (0.2-1.3); BLOOD UREA NITROGEN 48 mg/dl (7-20); CALCIUM 8.4 mg/dl (8.4-10.2); CARBON DIOXIDE 30 mmol/L (21-31); CHLORIDE 107 mmol/L (97-110); CREATININE 0.91 mg/dl (0.61-1.24); Estimated GFR > 60 mL/min (>60); GLUCOSE 240 mg/dl (70-220); POTASSIUM 3.6 mmol/L (3.5-5.1); SODIUM 147 mmol/L (135-144); TOTAL PROTEIN 8.1 g/dl (6.1-8.1)
[2018-08-26] MEDS: BUMETANIDE 1 MG INJ IV ×2 (05:44→17:50)
[2018-08-26] MEDS: METOPROLOL 50 MG TAB PO ×3 (05:45→21:31)
[2018-08-26] MEDS: NPH, HUMAN INSULIN ISOPHANE 3ML VIAL SC ×3 (05:52→21:43)
[2018-08-26] MEDS: RIFAMPIN 300 MG CAP PO (09:34)
[2018-08-26] MEDS: MULTIVITAMINS 30 ML CUP NGT (09:34)
[2018-08-26] MEDS: DULOXETINE 20 MG CAP DR PO (09:34)
[2018-08-26] MEDS: GABAPENTIN 400 MG CAP PO ×3 (09:34→20:15)
[2018-08-26] MEDS: ASCORBIC ACID 500 MG TAB NGT (09:34)
[2018-08-26] MEDS: BALSAM PERU/CASTOR OIL 60 GM TUBE TOP ×2 (09:35→21:43)
[2018-08-26] MEDS: DIGOXIN 0.125 MG TAB PO (14:53)
[2018-08-26] MEDS: FAMOTIDINE 20 MG TAB PO (20:15)
[2018-08-26] MEDS: ATORVASTATIN 40 MG TAB PO (20:15)
[2018-08-26] MEDS: DOXYCYCLINE 100 MG in SOD CHLORIDE 0.9% 250 ML IVPB (20:15)
[2018-08-27] MEDS: INSULIN ASPART [NOVOLOG] 3 ML PEN SC ×5 (00:22→23:59)
[2018-08-27] MEDS: METOPROLOL 50 MG TAB PO ×3 (05:46→21:49)
[2018-08-27] MEDS: NPH, HUMAN INSULIN ISOPHANE 3ML VIAL SC ×3 (05:58→22:10)
[2018-08-27 06:01] LABS: ADD MAN DIFF? NO
[2018-08-27] MEDS: BUMETANIDE 1 MG INJ IV (06:06)
[2018-08-27 06:13] LABS: BASOPHIL # 0.1 10^3/ul (0.0-0.1); BASOPHILS % 0.9 % (0.0-2.0); EOSINOPHILS # 0.2 10^3/ul (0.0-0.5); EOSINOPHILS % 2.9 % (0.0-7.0); HEMATOCRIT 30.5 % (42.0-52.0); HEMOGLOBIN 8.9 g/dl (14.0-18.0); LYMPHOCYTES # 1.4 10^3/ul (0.8-2.9); LYMPHOCYTES % 25.3 % (15.0-51.0); MEAN CORPUSCULAR HEMOGLOBIN 24.5 pg (29.0-33.0); MEAN CORPUSCULAR HGB CONC 29.2 g/dl (32.0-37.0); MEAN CORPUSCULAR VOLUME 83.8 fl (82.0-101.0); MEAN PLATELET VOLUME 12.5 fl (7.4-10.4); MONOCYTE # 0.5 10^3/ul (0.3-0.9); NEUTROPHIL # 3.4 10^3/ul (1.6-7.5); NEUTROPHILS % 61.4 % (39.0-77.0); PLATELET COUNT 172 10^3/UL (140-415); RED BLOOD COUNT 3.64 10^6/ul (4.70-6.10); RED CELL DISTRIBUTION WIDTH 17.8 % (11.5-14.5)
[2018-08-27 06:13] LABS: WHITE BLOOD COUNT 5.5 10^3/ul (4.8-10.8)
[2018-08-27 07:12] LABS: ANION GAP 6 (5-13); BLOOD UREA NITROGEN 61 mg/dl (7-20); CALCIUM 8.3 mg/dl (8.4-10.2); CARBON DIOXIDE 31 mmol/L (21-31); CHLORIDE 106 mmol/L (97-110); CREATININE 1.05 mg/dl (0.61-1.24); Estimated GFR > 60 mL/min (>60); GLUCOSE 171 mg/dl (70-220); SODIUM 143 mmol/L (135-144)
[2018-08-27] MEDS: GABAPENTIN 400 MG CAP PO ×3 (09:08→20:55)
[2018-08-27] MEDS: RIFAMPIN 300 MG CAP PO (09:08)
[2018-08-27] MEDS: DOXYCYCLINE 100 MG in SOD CHLORIDE 0.9% 250 ML IVPB ×2 (09:08→20:55)
[2018-08-27] MEDS: ASCORBIC ACID 500 MG TAB NGT (09:08)
[2018-08-27] MEDS: DULOXETINE 20 MG CAP DR PO (09:08)
[2018-08-27] MEDS: MULTIVITAMINS 30 ML CUP NGT (09:08)
[2018-08-27] MEDS: BALSAM PERU/CASTOR OIL 60 GM TUBE TOP ×2 (09:11→20:55)
[2018-08-27] MEDS: DIGOXIN 0.125 MG TAB PO (13:16)
[2018-08-27] MEDS: BUMETANIDE 2 MG in DEXTROSE 5% 17 ML IV (17:41)
[2018-08-27] MEDS ORDERED: FUROSEMIDE 20 MG INJ IV (18:00)
[2018-08-27] MEDS: FAMOTIDINE 20 MG TAB PO (20:55)
[2018-08-27] MEDS: ATORVASTATIN 40 MG TAB PO (20:55)
[2018-08-27 22:03] LABS: VANCOMYCIN,TROUGH 9.6 ug/ml (10.0-20.0)
[2018-08-27] MEDS: VANCOMYCIN 500 MG (PMX) 100 ML IVPB (22:32)
[2018-08-28] MEDS: BUMETANIDE 2 MG in DEXTROSE 5% 17 ML IV ×2 (05:51→17:46)
[2018-08-28] MEDS: METOPROLOL 50 MG TAB PO ×3 (05:51→22:02)
[2018-08-28 06:05] LABS: ADD MAN DIFF? NO
[2018-08-28 06:10] LABS: WHITE BLOOD COUNT 5.4 10^3/ul (4.8-10.8)
[2018-08-28 06:10] LABS: BASOPHILS % 0.6 % (0.0-2.0); EOSINOPHILS # 0.2 10^3/ul (0.0-0.5); HEMOGLOBIN 9.1 g/dl (14.0-18.0); LYMPHOCYTES # 1.3 10^3/ul (0.8-2.9); LYMPHOCYTES % 24.7 % (15.0-51.0); MEAN CORPUSCULAR HEMOGLOBIN 24.6 pg (29.0-33.0); MEAN CORPUSCULAR HGB CONC 29.4 g/dl (32.0-37.0); MEAN CORPUSCULAR VOLUME 83.8 fl (82.0-101.0); MEAN PLATELET VOLUME 11.8 fl (7.4-10.4); MONOCYTE # 0.5 10^3/ul (0.3-0.9); MONOCYTES % 9.1 % (0.0-11.0); NEUTROPHIL # 3.4 10^3/ul (1.6-7.5); NEUTROPHILS % 62.4 % (39.0-77.0); PLATELET COUNT 176 10^3/UL (140-415); RED CELL DISTRIBUTION WIDTH 17.7 % (11.5-14.5)
[2018-08-28] MEDS: NPH, HUMAN INSULIN ISOPHANE 3ML VIAL SC ×3 (06:36→22:31)
[2018-08-28] MEDS: INSULIN ASPART [NOVOLOG] 3 ML PEN SC ×3 (06:36→17:52)
[2018-08-28 06:44] LABS: ANION GAP 4 (5-13); BLOOD UREA NITROGEN 60 mg/dl (7-20); CALCIUM 8.4 mg/dl (8.4-10.2); CARBON DIOXIDE 34 mmol/L (21-31); CHLORIDE 107 mmol/L (97-110); CREATININE 0.94 mg/dl (0.61-1.24); Estimated GFR > 60 mL/min (>60); GLUCOSE 211 mg/dl (70-220); POTASSIUM 4.2 mmol/L (3.5-5.1); SODIUM 145 mmol/L (135-144)
[2018-08-28] MEDS: BALSAM PERU/CASTOR OIL 60 GM TUBE TOP ×2 (08:59→22:03)
[2018-08-28] MEDS: DULOXETINE 20 MG CAP DR PO (09:14)
[2018-08-28] MEDS: MULTIVITAMINS 30 ML CUP NGT (09:14)
[2018-08-28] MEDS: RIFAMPIN 300 MG CAP PO (09:14)
[2018-08-28] MEDS: GABAPENTIN 400 MG CAP PO ×3 (09:14→22:01)
[2018-08-28] MEDS: ASCORBIC ACID 500 MG TAB NGT (09:14)
[2018-08-28] MEDS: DOXYCYCLINE 100 MG in SOD CHLORIDE 0.9% 250 ML IVPB ×2 (09:19→21:00)
[2018-08-28] MEDS: DIGOXIN 0.125 MG TAB PO (12:34)
[2018-08-28] MEDS: ACETAMINOPHEN 650MG/20.3ML CUP PO ×2 (14:33→22:00)
[2018-08-28] MEDS: ATORVASTATIN 40 MG TAB PO (22:03)
[2018-08-28] MEDS: FAMOTIDINE 20 MG TAB PO (22:03)
[2018-08-28] MEDS: APIXABAN 5 MG TABLET PO (22:03)
[2018-08-28] MEDS: VANCOMYCIN 750 MG in SOD CHLORIDE 0.9% 150 ML IVPB (23:13)
[2018-08-29] MEDS: INSULIN ASPART [NOVOLOG] 3 ML PEN SC ×4 (01:03→18:20)
[2018-08-29 05:42] LABS: ADD MAN DIFF? NO
[2018-08-29 05:43] LABS: BASOPHILS % 0.6 % (0.0-2.0); EOSINOPHILS # 0.2 10^3/ul (0.0-0.5); EOSINOPHILS % 2.8 % (0.0-7.0); HEMOGLOBIN 9.3 g/dl (14.0-18.0); LYMPHOCYTES # 1.2 10^3/ul (0.8-2.9); LYMPHOCYTES % 21.6 % (15.0-51.0); MEAN CORPUSCULAR HEMOGLOBIN 24.5 pg (29.0-33.0); MEAN CORPUSCULAR HGB CONC 29.1 g/dl (32.0-37.0); MEAN CORPUSCULAR VOLUME 84.4 fl (82.0-101.0); MONOCYTE # 0.5 10^3/ul (0.3-0.9); MONOCYTES % 8.6 % (0.0-11.0); NEUTROPHIL # 3.6 10^3/ul (1.6-7.5); PLATELET COUNT 181 10^3/UL (140-415); RED BLOOD COUNT 3.79 10^6/ul (4.70-6.10); RED CELL DISTRIBUTION WIDTH 17.5 % (11.5-14.5)
[2018-08-29 05:43] LABS: WHITE BLOOD COUNT 5.4 10^3/ul (4.8-10.8)
[2018-08-29] MEDS: METOPROLOL 50 MG TAB PO ×3 (06:00→21:12)
[2018-08-29] MEDS: BUMETANIDE 1 MG TAB PO ×2 (06:00→18:13)
[2018-08-29] MEDS: NPH, HUMAN INSULIN ISOPHANE 3ML VIAL SC ×3 (06:03→21:24)
[2018-08-29] MEDS: ACETAMINOPHEN 650MG/20.3ML CUP PO ×3 (06:05→18:48)
[2018-08-29 06:14] LABS: ANION GAP 7 (5-13); BLOOD UREA NITROGEN 62 mg/dl (7-20); CALCIUM 8.4 mg/dl (8.4-10.2); CARBON DIOXIDE 31 mmol/L (21-31); CHLORIDE 113 mmol/L (97-110); CREATININE 0.98 mg/dl (0.61-1.24); Estimated GFR > 60 mL/min (>60); GLUCOSE 147 mg/dl (70-220); SODIUM 151 mmol/L (135-144)
[2018-08-29] MEDS: MULTIVITAMINS 30 ML CUP NGT (09:27)
[2018-08-29] MEDS: GABAPENTIN 400 MG CAP PO ×3 (09:27→20:59)
[2018-08-29] MEDS: RIFAMPIN 300 MG CAP PO (09:27)
[2018-08-29] MEDS: APIXABAN 5 MG TABLET PO ×2 (09:27→20:59)
[2018-08-29] MEDS: DULOXETINE 20 MG CAP DR PO (09:27)
[2018-08-29] MEDS: ASCORBIC ACID 500 MG TAB NGT (09:27)
[2018-08-29] MEDS: BALSAM PERU/CASTOR OIL 60 GM TUBE TOP ×2 (09:28→21:09)
[2018-08-29] MEDS: DOXYCYCLINE 100 MG in SOD CHLORIDE 0.9% 250 ML IVPB ×2 (09:46→21:08)
[2018-08-29] MEDS ORDERED: DILTIAZEM 25 MG INJ IV (12:30)
[2018-08-29] MEDS: DIGOXIN 0.125 MG TAB PO (12:38)
[2018-08-29] MEDS: MEROPENEM 500MG/50 ML (PMX) 50 ML IVPB ×2 (15:05→22:12)
[2018-08-29] MEDS: CASPOFUNGIN 70 MG in SOD CHLORIDE 0.9% 250 ML IVPB (16:05)
[2018-08-29] MEDS: ATORVASTATIN 40 MG TAB PO (20:59)
[2018-08-29] MEDS: FAMOTIDINE 20 MG TAB PO (20:59)
[2018-08-30] MEDS: INSULIN ASPART [NOVOLOG] 3 ML PEN SC ×4 (00:39→17:39)
[2018-08-30] MEDS: MEROPENEM 500MG/50 ML (PMX) 50 ML IVPB ×3 (05:10→21:05)
[2018-08-30] MEDS: BUMETANIDE 1 MG TAB PO (05:13)
[2018-08-30] MEDS: METOPROLOL 50 MG TAB PO ×3 (05:14→21:06)
[2018-08-30] MEDS: NPH, HUMAN INSULIN ISOPHANE 3ML VIAL SC ×3 (05:35→21:23)
[2018-08-30 05:43] LABS: ADD MAN DIFF? NO
[2018-08-30 05:48] LABS: WHITE BLOOD COUNT 6.8 10^3/ul (4.8-10.8)
[2018-08-30 05:48] LABS: ABNORMAL IP MESSAGE 1; BASOPHILS % 0.6 % (0.0-2.0); EOSINOPHILS # 0.2 10^3/ul (0.0-0.5); EOSINOPHILS % 3.3 % (0.0-7.0); HEMATOCRIT 33.4 % (42.0-52.0); HEMOGLOBIN 9.6 g/dl (14.0-18.0); LYMPHOCYTES # 1.2 10^3/ul (0.8-2.9); MEAN CORPUSCULAR HEMOGLOBIN 24.2 pg (29.0-33.0); MEAN CORPUSCULAR HGB CONC 28.7 g/dl (32.0-37.0); MEAN CORPUSCULAR VOLUME 84.1 fl (82.0-101.0); MEAN PLATELET VOLUME 12.8 fl (7.4-10.4); MONOCYTE # 0.7 10^3/ul (0.3-0.9); MONOCYTES % 10.2 % (0.0-11.0); NEUTROPHIL # 4.6 10^3/ul (1.6-7.5); NEUTROPHILS % 68.3 % (39.0-77.0); PLATELET COUNT 173 10^3/UL (140-415); POSITIVE DIFF @See below; RED BLOOD COUNT 3.97 10^6/ul (4.70-6.10); RED CELL DISTRIBUTION WIDTH 17.8 % (11.5-14.5)
[2018-08-30 06:12] LABS: ANION GAP 8 (5-13); BLOOD UREA NITROGEN 58 mg/dl (7-20); CALCIUM 8.4 mg/dl (8.4-10.2); CARBON DIOXIDE 28 mmol/L (21-31); CHLORIDE 114 mmol/L (97-110); CREATININE 0.77 mg/dl (0.61-1.24); Estimated GFR > 60 mL/min (>60); GLUCOSE 199 mg/dl (70-220); POTASSIUM 4.1 mmol/L (3.5-5.1); SODIUM 150 mmol/L (135-144)
[2018-08-30] MEDS: MULTIVITAMINS 30 ML CUP NGT (09:17)
[2018-08-30] MEDS: GABAPENTIN 400 MG CAP PO ×3 (09:17→20:32)
[2018-08-30] MEDS: RIFAMPIN 300 MG CAP PO (09:17)
[2018-08-30] MEDS: ASCORBIC ACID 500 MG TAB NGT (09:18)
[2018-08-30] MEDS: APIXABAN 5 MG TABLET PO ×2 (09:18→20:32)
[2018-08-30] MEDS: DULOXETINE 20 MG CAP DR PO (09:18)
[2018-08-30] MEDS: DOXYCYCLINE 100 MG in SOD CHLORIDE 0.9% 250 ML IVPB (09:20)
[2018-08-30] MEDS: BALSAM PERU/CASTOR OIL 60 GM TUBE TOP ×2 (09:20→20:32)
[2018-08-30] MEDS: DIGOXIN 0.125 MG TAB PO (12:19)
[2018-08-30] MEDS: ACETAMINOPHEN 650MG/20.3ML CUP PO (12:24)
[2018-08-30] MEDS: BUMETANIDE 12 MG in DEXTROSE 5% 72 ML IV (15:32)
[2018-08-30] MEDS: CASPOFUNGIN 50 MG in SOD CHLORIDE 0.9% 250 ML IVPB (17:30)
[2018-08-30] MEDS: FAMOTIDINE 20 MG TAB PO (20:32)
[2018-08-30] MEDS: ATORVASTATIN 40 MG TAB PO (20:32)
[2018-08-31] MEDS: INSULIN ASPART [NOVOLOG] 3 ML PEN SC ×5 (00:09→23:30)
[2018-08-31] MEDS: MEROPENEM 500MG/50 ML (PMX) 50 ML IVPB ×3 (05:00→21:16)
[2018-08-31] MEDS: METOPROLOL 50 MG TAB PO ×3 (05:08→21:18)
[2018-08-31] MEDS: ACETAMINOPHEN 650MG/20.3ML CUP PO ×2 (05:09→21:31)
[2018-08-31] MEDS: NPH, HUMAN INSULIN ISOPHANE 3ML VIAL SC ×3 (05:28→21:25)
[2018-08-31 05:49] LABS: ADD MAN DIFF? NO
[2018-08-31 05:55] LABS: WHITE BLOOD COUNT 6.5 10^3/ul (4.8-10.8)
[2018-08-31 05:55] LABS: BASOPHILS % 0.6 % (0.0-2.0); EOSINOPHILS # 0.3 10^3/ul (0.0-0.5); HEMATOCRIT 32.6 % (42.0-52.0); HEMOGLOBIN 9.5 g/dl (14.0-18.0); LYMPHOCYTES # 1.4 10^3/ul (0.8-2.9); LYMPHOCYTES % 21.9 % (15.0-51.0); MEAN CORPUSCULAR HEMOGLOBIN 24.4 pg (29.0-33.0); MEAN CORPUSCULAR HGB CONC 29.1 g/dl (32.0-37.0); MEAN CORPUSCULAR VOLUME 83.8 fl (82.0-101.0); MEAN PLATELET VOLUME 11.8 fl (7.4-10.4); MONOCYTE # 0.7 10^3/ul (0.3-0.9); MONOCYTES % 11.2 % (0.0-11.0); NEUTROPHILS % 61.8 % (39.0-77.0); PLATELET COUNT 179 10^3/UL (140-415); RED BLOOD COUNT 3.89 10^6/ul (4.70-6.10); RED CELL DISTRIBUTION WIDTH 17.6 % (11.5-14.5)
[2018-08-31 06:14] LABS: B-TYPE NATRIURETIC PEPTIDE 10200 PG/ML (0-125)
[2018-08-31 06:23] LABS: ANION GAP 10 (5-13); BLOOD UREA NITROGEN 56 mg/dl (7-20); CALCIUM 8.6 mg/dl (8.4-10.2); CARBON DIOXIDE 27 mmol/L (21-31); CHLORIDE 110 mmol/L (97-110); CREATININE 0.87 mg/dl (0.61-1.24); Estimated GFR > 60 mL/min (>60); GLUCOSE 207 mg/dl (70-220); SODIUM 147 mmol/L (135-144)
[2018-08-31] MEDS: MULTIVITAMINS 30 ML CUP NGT (08:30)
[2018-08-31] MEDS: GABAPENTIN 400 MG CAP PO ×3 (08:30→20:42)
[2018-08-31] MEDS: DULOXETINE 20 MG CAP DR PO (08:30)
[2018-08-31] MEDS: BALSAM PERU/CASTOR OIL 60 GM TUBE TOP ×2 (08:31→20:43)
[2018-08-31] MEDS: ASCORBIC ACID 500 MG TAB NGT (08:31)
[2018-08-31] MEDS: RIFAMPIN 300 MG CAP PO (08:31)
[2018-08-31] MEDS: APIXABAN 5 MG TABLET PO ×2 (08:31→20:42)
[2018-08-31] MEDS: DIGOXIN 0.125 MG TAB PO (13:11)
[2018-08-31] MEDS: BUMETANIDE 25 MG in DEXTROSE 5% 150 ML IV (14:42)
[2018-08-31] MEDS: CASPOFUNGIN 50 MG in SOD CHLORIDE 0.9% 250 ML IVPB (14:43)
[2018-08-31] MEDS: FAMOTIDINE 20 MG TAB PO (20:42)
[2018-08-31] MEDS: ATORVASTATIN 40 MG TAB PO (20:42)
[2018-08-31] MEDS: VANCOMYCIN 750 MG in SOD CHLORIDE 0.9% 150 ML IVPB (21:16)
[2018-09-01] MEDS: MEROPENEM 500MG/50 ML (PMX) 50 ML IVPB (05:23)
[2018-09-01] MEDS: NPH, HUMAN INSULIN ISOPHANE 3ML VIAL SC ×3 (05:33→21:54)
[2018-09-01] MEDS: METOPROLOL 50 MG TAB PO ×3 (05:35→21:47)
[2018-09-01] MEDS: INSULIN ASPART [NOVOLOG] 3 ML PEN SC ×3 (05:39→16:51)
[2018-09-01 06:06] LABS: ADD MAN DIFF? NO
[2018-09-01 06:09] LABS: ABNORMAL IP MESSAGE 1; BASOPHILS % 0.6 % (0.0-2.0); EOSINOPHILS # 0.3 10^3/ul (0.0-0.5); EOSINOPHILS % 6.4 % (0.0-7.0); HEMATOCRIT 29.9 % (42.0-52.0); HEMOGLOBIN 8.6 g/dl (14.0-18.0); LYMPHOCYTES # 1.1 10^3/ul (0.8-2.9); LYMPHOCYTES % 22.2 % (15.0-51.0); MEAN CORPUSCULAR HEMOGLOBIN 24.2 pg (29.0-33.0); MEAN CORPUSCULAR HGB CONC 28.8 g/dl (32.0-37.0); MEAN PLATELET VOLUME 11.3 fl (7.4-10.4); MONOCYTE # 0.6 10^3/ul (0.3-0.9); MONOCYTES % 11.8 % (0.0-11.0); NEUTROPHIL # 2.8 10^3/ul (1.6-7.5); NEUTROPHILS % 58.6 % (39.0-77.0); PLATELET COUNT 145 10^3/UL (140-415); POSITIVE DIFF @See below; RED BLOOD COUNT 3.56 10^6/ul (4.70-6.10); RED CELL DISTRIBUTION WIDTH 17.5 % (11.5-14.5)
[2018-09-01 06:09] LABS: WHITE BLOOD COUNT 4.8 10^3/ul (4.8-10.8)
[2018-09-01] MEDS ORDERED: DEXTROSE 50% 50 ML SYRINGE (07:00)
[2018-09-01 07:05] LABS: ANION GAP 8 (5-13); BLOOD UREA NITROGEN 62 mg/dl (7-20); CALCIUM 8.5 mg/dl (8.4-10.2); CARBON DIOXIDE 28 mmol/L (21-31); CHLORIDE 109 mmol/L (97-110); CREATININE 1.09 mg/dl (0.61-1.24); Estimated GFR > 60 mL/min (>60); GLUCOSE 193 mg/dl (70-220); POTASSIUM 3.9 mmol/L (3.5-5.1); SODIUM 145 mmol/L (135-144)
[2018-09-01] MEDS: GABAPENTIN 400 MG CAP PO ×3 (07:54→21:40)
[2018-09-01] MEDS: MULTIVITAMINS 30 ML CUP NGT (07:54)
[2018-09-01] MEDS: APIXABAN 5 MG TABLET PO ×2 (07:54→21:41)
[2018-09-01] MEDS: DULOXETINE 20 MG CAP DR PO (07:54)
[2018-09-01] MEDS: ASCORBIC ACID 500 MG TAB NGT (07:54)
[2018-09-01] MEDS: BALSAM PERU/CASTOR OIL 60 GM TUBE TOP ×2 (07:55→21:42)
[2018-09-01] MEDS: RIFAMPIN 300 MG CAP PO (07:55)
[2018-09-01] MEDS: DIGOXIN 0.125 MG TAB PO (13:12)
[2018-09-01] MEDS: BUMETANIDE 25 MG in DEXTROSE 5% 150 ML IV (14:55)
[2018-09-01] MEDS: DAPTOMYCIN 470 MG in SOD CHLORIDE 0.9% 100 ML IVPB (14:55)
[2018-09-01] MEDS: ATORVASTATIN 40 MG TAB PO (21:41)
[2018-09-01] MEDS: FAMOTIDINE 20 MG TAB PO (21:41)
[2018-09-02] MEDS: INSULIN ASPART [NOVOLOG] 3 ML PEN SC ×4 (00:32→17:32)
[2018-09-02 06:15] LABS: ADD MAN DIFF? NO
[2018-09-02 06:18] LABS: WHITE BLOOD COUNT 5.6 10^3/ul (4.8-10.8)
[2018-09-02 06:18] LABS: BASOPHILS % 0.7 % (0.0-2.0); EOSINOPHILS # 0.3 10^3/ul (0.0-0.5); EOSINOPHILS % 5.9 % (0.0-7.0); HEMATOCRIT 34.4 % (42.0-52.0); HEMOGLOBIN 10.2 g/dl (14.0-18.0); LYMPHOCYTES # 1.6 10^3/ul (0.8-2.9); LYMPHOCYTES % 29.1 % (15.0-51.0); MEAN CORPUSCULAR HEMOGLOBIN 24.4 pg (29.0-33.0); MEAN CORPUSCULAR HGB CONC 29.7 g/dl (32.0-37.0); MEAN CORPUSCULAR VOLUME 82.3 fl (82.0-101.0); MONOCYTE # 0.7 10^3/ul (0.3-0.9); MONOCYTES % 12.3 % (0.0-11.0); NEUTROPHIL # 2.9 10^3/ul (1.6-7.5); NEUTROPHILS % 51.5 % (39.0-77.0); PLATELET COUNT 179 10^3/UL (140-415); RED BLOOD COUNT 4.18 10^6/ul (4.70-6.10); RED CELL DISTRIBUTION WIDTH 17.3 % (11.5-14.5)
[2018-09-02] MEDS: METOPROLOL 50 MG TAB PO ×3 (06:18→21:17)
[2018-09-02] MEDS: NPH, HUMAN INSULIN ISOPHANE 3ML VIAL SC ×3 (06:22→21:45)
[2018-09-02 06:40] LABS: ANION GAP 10 (5-13); BLOOD UREA NITROGEN 68 mg/dl (7-20); CARBON DIOXIDE 33 mmol/L (21-31); CHLORIDE 105 mmol/L (97-110); CREATININE 1.02 mg/dl (0.61-1.24); Estimated GFR > 60 mL/min (>60); GLUCOSE 204 mg/dl (70-220); POTASSIUM 4.1 mmol/L (3.5-5.1); SODIUM 148 mmol/L (135-144)
[2018-09-02 07:05] LABS: CREATINE KINASE < 20 IU/L (23-200)
[2018-09-02 07:29] LABS: B-TYPE NATRIURETIC PEPTIDE 8670 PG/ML (0-125)
[2018-09-02] MEDS: MULTIVITAMINS 30 ML CUP NGT (08:55)
[2018-09-02] MEDS: DULOXETINE 20 MG CAP DR PO (08:56)
[2018-09-02] MEDS: ASCORBIC ACID 500 MG TAB NGT (08:56)
[2018-09-02] MEDS: RIFAMPIN 300 MG CAP PO (08:56)
[2018-09-02] MEDS: GABAPENTIN 400 MG CAP PO ×3 (08:56→21:17)
[2018-09-02] MEDS: APIXABAN 5 MG TABLET PO ×2 (08:56→21:17)
[2018-09-02] MEDS: BALSAM PERU/CASTOR OIL 60 GM TUBE TOP ×2 (08:57→21:18)
[2018-09-02] MEDS: DIGOXIN 0.125 MG TAB PO (12:43)
[2018-09-02] MEDS: DAPTOMYCIN 470 MG in SOD CHLORIDE 0.9% 100 ML IVPB (12:43)
[2018-09-02] MEDS: BUMETANIDE 25 MG in DEXTROSE 5% 150 ML IV (15:15)
[2018-09-02] MEDS: ATORVASTATIN 40 MG TAB PO (21:17)
[2018-09-02] MEDS: FAMOTIDINE 20 MG TAB PO (21:17)
[2018-09-02] MEDS: ACETAMINOPHEN 650MG/20.3ML CUP PO (21:26)
[2018-09-03] MEDS: INSULIN ASPART [NOVOLOG] 3 ML PEN SC ×4 (00:31→17:26)
[2018-09-03 05:32] LABS: ADD MAN DIFF? NO
[2018-09-03 05:43] LABS: BASOPHILS % 0.6 % (0.0-2.0); EOSINOPHILS # 0.3 10^3/ul (0.0-0.5); EOSINOPHILS % 4.6 % (0.0-7.0); HEMATOCRIT 32.5 % (42.0-52.0); HEMOGLOBIN 9.6 g/dl (14.0-18.0); LYMPHOCYTES # 1.9 10^3/ul (0.8-2.9); LYMPHOCYTES % 30.9 % (15.0-51.0); MEAN CORPUSCULAR HEMOGLOBIN 24.4 pg (29.0-33.0); MEAN CORPUSCULAR HGB CONC 29.5 g/dl (32.0-37.0); MEAN CORPUSCULAR VOLUME 82.5 fl (82.0-101.0); MEAN PLATELET VOLUME 11.5 fl (7.4-10.4); MONOCYTE # 0.8 10^3/ul (0.3-0.9); NEUTROPHIL # 3.2 10^3/ul (1.6-7.5); NEUTROPHILS % 51.3 % (39.0-77.0); PLATELET COUNT 172 10^3/UL (140-415); RED BLOOD COUNT 3.94 10^6/ul (4.70-6.10); RED CELL DISTRIBUTION WIDTH 17.2 % (11.5-14.5)
[2018-09-03 05:43] LABS: WHITE BLOOD COUNT 6.2 10^3/ul (4.8-10.8)
[2018-09-03] MEDS: ACETAMINOPHEN 650MG/20.3ML CUP PO ×3 (05:54→21:35)
[2018-09-03] MEDS: NPH, HUMAN INSULIN ISOPHANE 3ML VIAL SC ×3 (05:55→21:47)
[2018-09-03] MEDS: METOPROLOL 50 MG TAB PO ×3 (05:57→21:27)
[2018-09-03 06:11] LABS: ANION GAP 8 (5-13); BLOOD UREA NITROGEN 78 mg/dl (7-20); CALCIUM 8.9 mg/dl (8.4-10.2); CARBON DIOXIDE 36 mmol/L (21-31); CHLORIDE 103 mmol/L (97-110); CREATININE 1.47 mg/dl (0.61-1.24); Estimated GFR 48 mL/min (>60); GLUCOSE 220 mg/dl (70-220); POTASSIUM 4.2 mmol/L (3.5-5.1); SODIUM 147 mmol/L (135-144)
[2018-09-03] MEDS: MULTIVITAMINS 30 ML CUP NGT (08:59)
[2018-09-03] MEDS: DULOXETINE 20 MG CAP DR PO (08:59)
[2018-09-03] MEDS: APIXABAN 5 MG TABLET PO ×2 (08:59→21:26)
[2018-09-03] MEDS: RIFAMPIN 300 MG CAP PO (09:00)
[2018-09-03] MEDS: BALSAM PERU/CASTOR OIL 60 GM TUBE TOP ×2 (09:00→21:28)
[2018-09-03] MEDS: ASCORBIC ACID 500 MG TAB NGT (09:00)
[2018-09-03] MEDS: GABAPENTIN 400 MG CAP PO ×3 (09:00→21:26)
[2018-09-03] MEDS: DIGOXIN 0.125 MG TAB PO (12:21)
[2018-09-03] MEDS: DAPTOMYCIN 470 MG in SOD CHLORIDE 0.9% 100 ML IVPB (12:21)
[2018-09-03] MEDS: ATORVASTATIN 40 MG TAB PO (21:26)
[2018-09-03] MEDS: FAMOTIDINE 20 MG TAB PO (21:27)
[2018-09-04] MEDS: INSULIN ASPART [NOVOLOG] 3 ML PEN SC ×6 (00:49→22:27)
[2018-09-04] MEDS: BUMETANIDE 1 MG TAB PO ×2 (06:20→17:54)
[2018-09-04] MEDS: METOPROLOL 50 MG TAB PO ×3 (06:20→23:28)
[2018-09-04] MEDS: ACETAMINOPHEN 650MG/20.3ML CUP PO ×3 (06:22→22:12)
[2018-09-04] MEDS: NPH, HUMAN INSULIN ISOPHANE 3ML VIAL SC ×3 (06:41→22:27)
[2018-09-04 06:56] LABS: CREATININE 1.31 mg/dl (0.61-1.24)
[2018-09-04 06:56] LABS: BLOOD UREA NITROGEN 86 mg/dl (7-20)
[2018-09-04] MEDS: DULOXETINE 20 MG CAP DR PO (09:32)
[2018-09-04] MEDS: MULTIVITAMINS 30 ML CUP NGT (09:32)
[2018-09-04] MEDS: RIFAMPIN 300 MG CAP PO (09:32)
[2018-09-04] MEDS: ASCORBIC ACID 500 MG TAB NGT (09:33)
[2018-09-04] MEDS: APIXABAN 5 MG TABLET PO ×2 (09:33→21:00)
[2018-09-04] MEDS: GABAPENTIN 400 MG CAP PO ×3 (09:33→22:12)
[2018-09-04] MEDS: BALSAM PERU/CASTOR OIL 60 GM TUBE TOP ×2 (09:33→22:00)
[2018-09-04] MEDS: DAPTOMYCIN 470 MG in SOD CHLORIDE 0.9% 100 ML IVPB (13:14)
[2018-09-04] MEDS: ATORVASTATIN 40 MG TAB PO (22:12)
[2018-09-04] MEDS: FAMOTIDINE 20 MG TAB PO (22:12)
[2018-09-05] MEDS: INSULIN ASPART [NOVOLOG] 3 ML PEN SC ×6 (01:47→21:00)
[2018-09-05] MEDS: NPH, HUMAN INSULIN ISOPHANE 3ML VIAL SC ×3 (05:47→23:53)
[2018-09-05] MEDS: BUMETANIDE 1 MG TAB PO (05:47)
[2018-09-05] MEDS: METOPROLOL 50 MG TAB PO ×3 (06:00→21:31)
[2018-09-05] MEDS: ACETAMINOPHEN 1000MG/100ML IV 100 ML IVPB (06:24)
[2018-09-05 07:20] LABS: ANION GAP 7 (5-13); BLOOD UREA NITROGEN 90 mg/dl (7-20); CALCIUM 8.7 mg/dl (8.4-10.2); CARBON DIOXIDE 38 mmol/L (21-31); CHLORIDE 101 mmol/L (97-110); CREATININE 1.47 mg/dl (0.61-1.24); Estimated GFR 48 mL/min (>60); GLUCOSE 122 mg/dl (70-220); POTASSIUM 3.9 mmol/L (3.5-5.1); SODIUM 146 mmol/L (135-144)
[2018-09-05] MEDS: SOD CHLORIDE 0.9% 1,000 ML IV (09:41)
[2018-09-05] MEDS: ALBUMIN HUMAN 25% 100 ML IV ×2 (09:42→17:50)
[2018-09-05] MEDS: GABAPENTIN 400 MG CAP PO ×3 (09:43→21:31)
[2018-09-05] MEDS: ASCORBIC ACID 500 MG TAB NGT (09:43)
[2018-09-05] MEDS: APIXABAN 5 MG TABLET PO ×2 (09:43→21:35)
[2018-09-05] MEDS: MULTIVITAMINS 30 ML CUP NGT (09:43)
[2018-09-05] MEDS: RIFAMPIN 300 MG CAP PO (09:43)
[2018-09-05] MEDS: DULOXETINE 20 MG CAP DR PO (09:43)
[2018-09-05] MEDS: BALSAM PERU/CASTOR OIL 60 GM TUBE TOP ×2 (09:44→21:32)
[2018-09-05] MEDS: DAPTOMYCIN 470 MG in SOD CHLORIDE 0.9% 100 ML IVPB (14:02)
[2018-09-05] MEDS: MEROPENEM 1 GM/50ML(PMX) 50 ML IVPB ×2 (17:49→21:29)
[2018-09-05] MEDS: ATORVASTATIN 40 MG TAB PO (21:31)
[2018-09-05] MEDS: ACETAMINOPHEN 650MG/20.3ML CUP PO (21:31)
[2018-09-06] MEDS: ALBUMIN HUMAN 25% 100 ML IV (00:31)
[2018-09-06] MEDS: INSULIN ASPART [NOVOLOG] 3 ML PEN SC ×6 (01:46→21:13)
[2018-09-06 06:26] LABS: ANION GAP 11 (5-13); BLOOD UREA NITROGEN 75 mg/dl (7-20); CALCIUM 8.4 mg/dl (8.4-10.2); CARBON DIOXIDE 32 mmol/L (21-31); CHLORIDE 106 mmol/L (97-110); CREATININE 1.13 mg/dl (0.61-1.24); Estimated GFR > 60 mL/min (>60); GLUCOSE 206 mg/dl (70-220); POTASSIUM 3.7 mmol/L (3.5-5.1); SODIUM 149 mmol/L (135-144)
[2018-09-06] MEDS: METOPROLOL 50 MG TAB PO ×3 (06:27→21:15)
[2018-09-06 06:35] LABS: B-TYPE NATRIURETIC PEPTIDE 9510 PG/ML (0-125)
[2018-09-06] MEDS: NPH, HUMAN INSULIN ISOPHANE 3ML VIAL SC ×3 (06:38→21:17)
[2018-09-06] MEDS: MULTIVITAMINS 30 ML CUP NGT (08:41)
[2018-09-06] MEDS: RIFAMPIN 300 MG CAP PO (08:42)
[2018-09-06] MEDS: APIXABAN 5 MG TABLET PO ×2 (08:42→21:15)
[2018-09-06] MEDS: ACETAMINOPHEN 650MG/20.3ML CUP PO ×2 (08:42→21:48)
[2018-09-06] MEDS: ASCORBIC ACID 500 MG TAB NGT (08:42)
[2018-09-06] MEDS: MEROPENEM 1 GM/50ML(PMX) 50 ML IVPB ×2 (08:43→21:06)
[2018-09-06] MEDS: GABAPENTIN 400 MG CAP PO ×3 (08:43→21:06)
[2018-09-06] MEDS: BALSAM PERU/CASTOR OIL 60 GM TUBE TOP ×2 (08:43→21:46)
[2018-09-06] MEDS: LORAZEPAM 2 MG INJ IV ×2 (11:57→12:55)
[2018-09-06] MEDS ORDERED: LORAZEPAM 2 MG INJ IV (12:00)
[2018-09-06] MEDS: DAPTOMYCIN 470 MG in SOD CHLORIDE 0.9% 100 ML IVPB (12:06)
[2018-09-06] MEDS: ATORVASTATIN 40 MG TAB PO (21:06)
[2018-09-07] MEDS: INSULIN ASPART [NOVOLOG] 3 ML PEN SC ×5 (01:24→18:01)
[2018-09-07] MEDS: NPH, HUMAN INSULIN ISOPHANE 3ML VIAL SC ×3 (05:08→23:19)
[2018-09-07] MEDS: METOPROLOL 50 MG TAB PO ×3 (05:13→21:54)
[2018-09-07 06:48] LABS: ANION GAP 12 (5-13); BLOOD UREA NITROGEN 75 mg/dl (7-20); CALCIUM 9.2 mg/dl (8.4-10.2); CARBON DIOXIDE 28 mmol/L (21-31); CHLORIDE 107 mmol/L (97-110); CREATININE 1.17 mg/dl (0.61-1.24); Estimated GFR > 60 mL/min (>60); GLUCOSE 233 mg/dl (70-220); POTASSIUM 3.3 mmol/L (3.5-5.1); SODIUM 147 mmol/L (135-144)
[2018-09-07] MEDS: MULTIVITAMINS 30 ML CUP NGT (09:21)
[2018-09-07] MEDS: APIXABAN 5 MG TABLET PO ×2 (09:21→21:53)
[2018-09-07] MEDS: RIFAMPIN 300 MG CAP PO (09:21)
[2018-09-07] MEDS: GABAPENTIN 400 MG CAP PO ×3 (09:21→21:53)
[2018-09-07] MEDS: MEROPENEM 1 GM/50ML(PMX) 50 ML IVPB ×2 (09:21→21:53)
[2018-09-07] MEDS: ASCORBIC ACID 500 MG TAB NGT (09:21)
[2018-09-07] MEDS: BALSAM PERU/CASTOR OIL 60 GM TUBE TOP ×2 (09:27→21:53)
[2018-09-07] MEDS: DAPTOMYCIN 470 MG in SOD CHLORIDE 0.9% 100 ML IVPB (12:41)
[2018-09-07] MEDS: ACETAMINOPHEN 650MG/20.3ML CUP PO (18:02)
[2018-09-07] MEDS: FUROSEMIDE 20 MG INJ IV (18:02)
[2018-09-07] MEDS: ATORVASTATIN 40 MG TAB PO (21:53)
[2018-09-08] MEDS: INSULIN ASPART [NOVOLOG] 3 ML PEN SC ×7 (00:12→21:00)
[2018-09-08] MEDS: ACETAMINOPHEN 650MG/20.3ML CUP PO ×3 (02:34→21:08)
[2018-09-08] MEDS: FUROSEMIDE 20 MG INJ IV ×2 (05:56→18:08)
[2018-09-08] MEDS: METOPROLOL 50 MG TAB PO ×3 (05:56→21:06)
[2018-09-08 06:49] LABS: ANION GAP 10 (5-13); BLOOD UREA NITROGEN 87 mg/dl (7-20); CALCIUM 8.9 mg/dl (8.4-10.2); CARBON DIOXIDE 31 mmol/L (21-31); CHLORIDE 106 mmol/L (97-110); CREATININE 1.51 mg/dl (0.61-1.24); Estimated GFR 46 mL/min (>60); GLUCOSE 142 mg/dl (70-220); POTASSIUM 3.8 mmol/L (3.5-5.1); SODIUM 147 mmol/L (135-144)
[2018-09-08] MEDS: NPH, HUMAN INSULIN ISOPHANE 3ML VIAL SC ×3 (07:01→21:28)
[2018-09-08] MEDS: GABAPENTIN 400 MG CAP PO ×3 (09:59→21:06)
[2018-09-08] MEDS: MEROPENEM 1 GM/50ML(PMX) 50 ML IVPB ×2 (09:59→21:01)
[2018-09-08] MEDS: MULTIVITAMINS 30 ML CUP NGT (09:59)
[2018-09-08] MEDS: ASCORBIC ACID 500 MG TAB NGT (09:59)
[2018-09-08] MEDS: BALSAM PERU/CASTOR OIL 60 GM TUBE TOP ×2 (10:00→21:07)
[2018-09-08 10:50] LABS: ADD MAN DIFF? NO
[2018-09-08 10:52] LABS: WHITE BLOOD COUNT 5.7 10^3/ul (4.8-10.8)
[2018-09-08 10:52] LABS: BASOPHILS % 0.4 % (0.0-2.0); EOSINOPHILS # 0.3 10^3/ul (0.0-0.5); EOSINOPHILS % 5.5 % (0.0-7.0); HEMATOCRIT 28.3 % (42.0-52.0); HEMOGLOBIN 8.4 g/dl (14.0-18.0); LYMPHOCYTES # 1.4 10^3/ul (0.8-2.9); LYMPHOCYTES % 24.9 % (15.0-51.0); MEAN CORPUSCULAR HEMOGLOBIN 25.4 pg (29.0-33.0); MEAN CORPUSCULAR HGB CONC 29.7 g/dl (32.0-37.0); MEAN CORPUSCULAR VOLUME 85.5 fl (82.0-101.0); MEAN PLATELET VOLUME 12.8 fl (7.4-10.4); MONOCYTE # 0.8 10^3/ul (0.3-0.9); MONOCYTES % 13.9 % (0.0-11.0); NEUTROPHIL # 3.1 10^3/ul (1.6-7.5); NEUTROPHILS % 54.6 % (39.0-77.0); NUCLEATED RED BLOOD CELLS% 0.4 /100WBC (0.0-0.0); PLATELET COUNT 181 10^3/UL (140-415); RED BLOOD COUNT 3.31 10^6/ul (4.70-6.10); RED CELL DISTRIBUTION WIDTH 17.7 % (11.5-14.5)
[2018-09-08] MEDS: APIXABAN 5 MG TABLET PO ×2 (13:52→21:06)
[2018-09-08] MEDS: RIFAMPIN 300 MG CAP PO (13:52)
[2018-09-08] MEDS: DAPTOMYCIN 470 MG in SOD CHLORIDE 0.9% 100 ML IVPB (13:53)
[2018-09-08] MEDS: ATORVASTATIN 40 MG TAB PO (21:06)
[2018-09-09] MEDS: INSULIN ASPART [NOVOLOG] 3 ML PEN SC ×6 (01:00→22:19)
[2018-09-09] MEDS: METOPROLOL 50 MG TAB PO ×3 (05:04→22:17)
[2018-09-09] MEDS: FUROSEMIDE 20 MG INJ IV ×2 (05:05→17:31)
[2018-09-09] MEDS: NPH, HUMAN INSULIN ISOPHANE 3ML VIAL SC ×3 (05:20→22:20)
[2018-09-09 07:18] LABS: CREATINE KINASE < 20 IU/L (23-200)
[2018-09-09 07:42] LABS: ANION GAP 13 (5-13); BLOOD UREA NITROGEN 93 mg/dl (7-20); CALCIUM 9.3 mg/dl (8.4-10.2); CARBON DIOXIDE 29 mmol/L (21-31); CHLORIDE 109 mmol/L (97-110); CREATININE 1.82 mg/dl (0.61-1.24); Estimated GFR 37 mL/min (>60); GLUCOSE 83 mg/dl (70-220); POTASSIUM 3.2 mmol/L (3.5-5.1); SODIUM 151 mmol/L (135-144)
[2018-09-09] MEDS: MULTIVITAMINS 30 ML CUP NGT (08:28)
[2018-09-09] MEDS: RIFAMPIN 300 MG CAP PO (08:28)
[2018-09-09] MEDS: ASCORBIC ACID 500 MG TAB NGT (08:28)
[2018-09-09] MEDS: GABAPENTIN 400 MG CAP PO ×3 (08:28→22:17)
[2018-09-09] MEDS: APIXABAN 5 MG TABLET PO ×2 (08:28→22:17)
[2018-09-09] MEDS: MEROPENEM 1 GM/50ML(PMX) 50 ML IVPB ×2 (08:29→22:16)
[2018-09-09] MEDS: ACETAMINOPHEN 650MG/20.3ML CUP PO ×2 (08:50→22:16)
[2018-09-09] MEDS: ALBUMIN HUMAN 25% 100 ML IV ×2 (11:04→18:35)
[2018-09-09] MEDS: DAPTOMYCIN 470 MG in SOD CHLORIDE 0.9% 100 ML IVPB (14:23)
[2018-09-09] MEDS: BALSAM PERU/CASTOR OIL 60 GM TUBE TOP ×2 (15:59→22:22)
[2018-09-09] MEDS: POTASSIUM CHLORIDE 100 ML IVPB (15:59)
[2018-09-09] MEDS: ATORVASTATIN 40 MG TAB PO (22:18)
[2018-09-10] MEDS: ALBUMIN HUMAN 25% 100 ML IV ×4 (01:48→18:28)
[2018-09-10] MEDS: INSULIN ASPART [NOVOLOG] 3 ML PEN SC ×6 (01:50→21:00)
[2018-09-10] MEDS: FUROSEMIDE 20 MG INJ IV (05:25)
[2018-09-10] MEDS: METOPROLOL 50 MG TAB PO ×3 (05:25→22:04)
[2018-09-10] MEDS: NPH, HUMAN INSULIN ISOPHANE 3ML VIAL SC ×3 (05:27→22:12)
[2018-09-10 06:19] LABS: ADD MAN DIFF? NO
[2018-09-10 06:37] LABS: BASOPHILS % 0.5 % (0.0-2.0); EOSINOPHILS # 0.3 10^3/ul (0.0-0.5); EOSINOPHILS % 7.7 % (0.0-7.0); HEMATOCRIT 26.4 % (42.0-52.0); HEMOGLOBIN 7.8 g/dl (14.0-18.0); LYMPHOCYTES # 0.6 10^3/ul (0.8-2.9); LYMPHOCYTES % 15.8 % (15.0-51.0); MEAN CORPUSCULAR HGB CONC 29.5 g/dl (32.0-37.0); MEAN CORPUSCULAR VOLUME 84.6 fl (82.0-101.0); MEAN PLATELET VOLUME 11.6 fl (7.4-10.4); MONOCYTE # 0.4 10^3/ul (0.3-0.9); MONOCYTES % 10.7 % (0.0-11.0); NEUTROPHIL # 2.5 10^3/ul (1.6-7.5); NEUTROPHILS % 64.5 % (39.0-77.0); PLATELET COUNT 198 10^3/UL (140-415); RED BLOOD COUNT 3.12 10^6/ul (4.70-6.10); RED CELL DISTRIBUTION WIDTH 17.7 % (11.5-14.5)
[2018-09-10 06:37] LABS: WHITE BLOOD COUNT 3.9 10^3/ul (4.8-10.8)
[2018-09-10 06:54] LABS: ANION GAP 12 (5-13); BLOOD UREA NITROGEN 95 mg/dl (7-20); CALCIUM 9.3 mg/dl (8.4-10.2); CARBON DIOXIDE 28 mmol/L (21-31); CHLORIDE 109 mmol/L (97-110); CREATININE 1.58 mg/dl (0.61-1.24); Estimated GFR 44 mL/min (>60); GLUCOSE 144 mg/dl (70-220); POTASSIUM 3.4 mmol/L (3.5-5.1); SODIUM 149 mmol/L (135-144)
[2018-09-10] MEDS: MULTIVITAMINS 30 ML CUP NGT (07:59)
[2018-09-10] MEDS: APIXABAN 5 MG TABLET PO ×2 (07:59→21:59)
[2018-09-10] MEDS: ASCORBIC ACID 500 MG TAB NGT (07:59)
[2018-09-10] MEDS: GABAPENTIN 400 MG CAP PO ×3 (07:59→21:59)
[2018-09-10] MEDS: MEROPENEM 1 GM/50ML(PMX) 50 ML IVPB ×2 (07:59→21:59)
[2018-09-10] MEDS: RIFAMPIN 300 MG CAP PO (07:59)
[2018-09-10] MEDS: BALSAM PERU/CASTOR OIL 60 GM TUBE TOP ×2 (08:00→22:05)
[2018-09-10] MEDS: SOD CHLORIDE 0.9% 1,000 ML IV (11:51)
[2018-09-10] MEDS: SOD CHLORIDE 0.45% 1,000 ML IV (12:32)
[2018-09-10] MEDS: POTASSIUM CHLORIDE 100 ML IVPB (15:43)
[2018-09-10] MEDS: ATORVASTATIN 40 MG TAB PO (21:59)
[2018-09-11] MEDS: INSULIN ASPART [NOVOLOG] 3 ML PEN SC ×6 (02:50→21:51)
[2018-09-11] MEDS: ALBUMIN HUMAN 25% 100 ML IV (03:06)
[2018-09-11] MEDS: METOPROLOL 50 MG TAB PO ×3 (05:31→21:35)
[2018-09-11] MEDS: NPH, HUMAN INSULIN ISOPHANE 3ML VIAL SC ×3 (05:37→21:50)
[2018-09-11 05:40] LABS: WHITE BLOOD COUNT 3.9 10^3/ul (4.8-10.8)
[2018-09-11 05:40] LABS: ABNORMAL IP MESSAGE 1; HEMATOCRIT 22.9 % (42.0-52.0); MEAN CORPUSCULAR HEMOGLOBIN 25.1 pg (29.0-33.0); MEAN CORPUSCULAR HGB CONC 29.7 g/dl (32.0-37.0); MEAN CORPUSCULAR VOLUME 84.5 fl (82.0-101.0); MEAN PLATELET VOLUME 11.1 fl (7.4-10.4); PLATELET COUNT 188 10^3/UL (140-415); POSITIVE DIFF @See below; RED BLOOD COUNT 2.71 10^6/ul (4.70-6.10); RED CELL DISTRIBUTION WIDTH 17.4 % (11.5-14.5)
[2018-09-11 06:00] LABS: INR 1.46; PARTIAL THROMBOPLASTIN TIME 45.7 Sec (23.0-35.0); PT RATIO 1.4
[2018-09-11 06:17] LABS: ALANINE AMINOTRANSFERASE 17 IU/L (13-69); ALKALINE PHOSPHATASE 144 IU/L (42-121); ANION GAP 15 (5-13); ASPARTATE AMINO TRANSFERASE 35 IU/L (15-46); BILIRUBIN,INDIRECT 0.4 mg/dl (0-1.1); BILIRUBIN,TOTAL 0.4 mg/dl (0.2-1.3); BLOOD UREA NITROGEN 101 mg/dl (7-20); CALCIUM 9.4 mg/dl (8.4-10.2); CARBON DIOXIDE 28 mmol/L (21-31); CHLORIDE 104 mmol/L (97-110); CREATININE 1.64 mg/dl (0.61-1.24); Estimated GFR 42 mL/min (>60); GLUCOSE 142 mg/dl (70-220); POTASSIUM 3.4 mmol/L (3.5-5.1); SODIUM 147 mmol/L (135-144)
[2018-09-11 06:18] LABS: ALBUMIN 4.1 g/dl (3.3-4.9); ALBUMIN/GLOBULIN RATIO 1.05
[2018-09-11 06:24] LABS: B-TYPE NATRIURETIC PEPTIDE 19500 PG/ML (0-125)
[2018-09-11 06:24] LABS: ADD MAN DIFF? YES; HEMOGLOBIN 6.8 g/dl (14.0-18.0)
[2018-09-11 06:25] LABS: PATH REVIEW? YES
[2018-09-11 06:57] LABS: MAGNESIUM 3.8 mg/dl (1.7-2.5)
[2018-09-11 07:12] LABS: HEMATOCRIT 24.8 % (42.0-52.0); HEMOGLOBIN 7.3 g/dl (14.0-18.0)
[2018-09-11 08:02] LABS: RETICULOCYTE COUNT # 0.025 X10^6 (0.020-0.110); RETICULOCYTE COUNT % 0.9 % (0.5-1.5)
[2018-09-11] MEDS: SOD CHLORIDE 0.45% 1,000 ML IV (08:30)
[2018-09-11] MEDS: RIFAMPIN 300 MG CAP PO (08:51)
[2018-09-11] MEDS: APIXABAN 5 MG TABLET PO ×2 (08:51→21:11)
[2018-09-11] MEDS: GABAPENTIN 400 MG CAP PO ×3 (08:52→21:10)
[2018-09-11] MEDS: ASCORBIC ACID 500 MG TAB NGT (08:52)
[2018-09-11] MEDS: MULTIVITAMINS 30 ML CUP NGT (08:53)
[2018-09-11] MEDS: BALSAM PERU/CASTOR OIL 60 GM TUBE TOP ×2 (08:59→21:13)
[2018-09-11 09:26] LABS: FOLATE > 20.0 ng/ml (2.8-20.0)
[2018-09-11] MEDS: MEROPENEM 1 GM/50ML(PMX) 50 ML IVPB ×2 (10:30→21:10)
[2018-09-11] MEDS: DAPTOMYCIN 470 MG in SOD CHLORIDE 0.9% 100 ML IVPB (12:19)
[2018-09-11 12:23] LABS: OCCULT BLOOD STOOL NEGATIVE (NEGATIVE)
[2018-09-11 13:34] LABS: EOSINOPHILS # 0.1 10^3/ul (0.0-0.5); EOSINOPHILS % (M) 3 % (0.0-7.0); LYMPHOCYTES #M 1.4 10^3/ul (0.8-2.9); LYMPHOCYTES % (M) 36 % (15-51); MONOCYTE #M 0.1 10^3/ul (0.3-0.9); MONOCYTES % (M) 3 % (0-11); SEG NEUT #M 2.1 10^3/ul (1.7-7.5); SEGMENTED NEUTROPHILS (M) % 53 % (39-77)
[2018-09-11 13:37] LABS: ANISOCYTOSIS 1+ (0-0); HYPOCHROMASIA 2+ (0-0)
[2018-09-11 13:38] LABS: OVALOCYTES 1+ (0-0)
[2018-09-11 13:41] LABS: BAND NEUTROPHILS #M 0.1 10^3/ul (0.0-0.6); BAND NEUTROPHILS % (M) 5 % (0-4)
[2018-09-11] MEDS: POTASSIUM CHLORIDE 20 MEQ POWDER FOR ORAL SOLN GTB (16:45)
[2018-09-11 17:57] LABS: IMMEDIATE SPIN CROSSMATCH 1 1
[2018-09-11] MEDS: ACETAMINOPHEN 650MG/20.3ML CUP PO (18:09)
[2018-09-11] MEDS: ATORVASTATIN 40 MG TAB PO (21:10)
[2018-09-12] MEDS: INSULIN ASPART [NOVOLOG] 3 ML PEN SC ×6 (01:03→21:20)
[2018-09-12] MEDS: SOD CHLORIDE 0.45% 1,000 ML IV (04:30)
[2018-09-12] MEDS: METOPROLOL 50 MG TAB PO ×3 (05:37→21:49)
[2018-09-12] MEDS: NPH, HUMAN INSULIN ISOPHANE 3ML VIAL SC ×3 (05:55→22:02)
[2018-09-12 05:56] LABS: ADD MAN DIFF? NO; BASOPHILS % 0.4 % (0.0-2.0); EOSINOPHILS # 0.3 10^3/ul (0.0-0.5); EOSINOPHILS % 6.8 % (0.0-7.0); HEMOGLOBIN 9.2 g/dl (14.0-18.0); LYMPHOCYTES # 0.7 10^3/ul (0.8-2.9); LYMPHOCYTES % 15.3 % (15.0-51.0); MEAN CORPUSCULAR HEMOGLOBIN 25.6 pg (29.0-33.0); MEAN CORPUSCULAR HGB CONC 30.7 g/dl (32.0-37.0); MEAN CORPUSCULAR VOLUME 83.3 fl (82.0-101.0); MEAN PLATELET VOLUME 11.1 fl (7.4-10.4); MONOCYTE # 0.6 10^3/ul (0.3-0.9); MONOCYTES % 11.7 % (0.0-11.0); NEUTROPHILS % 64.1 % (39.0-77.0); PLATELET COUNT 210 10^3/UL (140-415); RED CELL DISTRIBUTION WIDTH 16.9 % (11.5-14.5)
[2018-09-12 05:56] LABS: WHITE BLOOD COUNT 4.7 10^3/ul (4.8-10.8)
[2018-09-12 06:54] LABS: ANION GAP 11 (5-13); BLOOD UREA NITROGEN 100 mg/dl (7-20); CARBON DIOXIDE 25 mmol/L (21-31); CHLORIDE 106 mmol/L (97-110); CREATININE 1.45 mg/dl (0.61-1.24); Estimated GFR 49 mL/min (>60); GLUCOSE 158 mg/dl (70-220); POTASSIUM 4.2 mmol/L (3.5-5.1); SODIUM 142 mmol/L (135-144)
[2018-09-12 07:08] LABS: CREATINE KINASE 31 IU/L (23-200)
[2018-09-12] MEDS: MEROPENEM 1 GM/50ML(PMX) 50 ML IVPB ×2 (09:57→20:59)
[2018-09-12] MEDS: BALSAM PERU/CASTOR OIL 60 GM TUBE TOP ×2 (09:57→21:00)
[2018-09-12] MEDS: ASCORBIC ACID 500 MG TAB NGT (09:57)
[2018-09-12] MEDS: MULTIVITAMINS 30 ML CUP NGT (09:57)
[2018-09-12] MEDS: APIXABAN 5 MG TABLET PO ×2 (09:57→21:00)
[2018-09-12] MEDS: GABAPENTIN 400 MG CAP PO ×3 (09:57→21:00)
[2018-09-12] MEDS: ATORVASTATIN 40 MG TAB PO (21:00)
[2018-09-13] MEDS: SOD CHLORIDE 0.45% 1,000 ML IV ×2 (00:30→20:30)
[2018-09-13] MEDS: INSULIN ASPART [NOVOLOG] 3 ML PEN SC ×6 (00:59→22:00)
[2018-09-13] MEDS: METOPROLOL 50 MG TAB PO ×3 (05:48→22:05)
[2018-09-13] MEDS: NPH, HUMAN INSULIN ISOPHANE 3ML VIAL SC ×3 (05:55→22:24)
[2018-09-13 06:05] LABS: ADD MAN DIFF? NO
[2018-09-13 06:11] LABS: BASOPHILS % 0.3 % (0.0-2.0); EOSINOPHILS # 0.3 10^3/ul (0.0-0.5); EOSINOPHILS % 4.8 % (0.0-7.0); HEMATOCRIT 28.5 % (42.0-52.0); HEMOGLOBIN 8.8 g/dl (14.0-18.0); LYMPHOCYTES # 1.1 10^3/ul (0.8-2.9); LYMPHOCYTES % 17.9 % (15.0-51.0); MEAN CORPUSCULAR HEMOGLOBIN 25.8 pg (29.0-33.0); MEAN CORPUSCULAR HGB CONC 30.9 g/dl (32.0-37.0); MEAN CORPUSCULAR VOLUME 83.6 fl (82.0-101.0); MEAN PLATELET VOLUME 11.2 fl (7.4-10.4); MONOCYTE # 0.7 10^3/ul (0.3-0.9); MONOCYTES % 11.5 % (0.0-11.0); NEUTROPHIL # 3.9 10^3/ul (1.6-7.5); NEUTROPHILS % 64.8 % (39.0-77.0); PLATELET COUNT 225 10^3/UL (140-415); RED BLOOD COUNT 3.41 10^6/ul (4.70-6.10); RED CELL DISTRIBUTION WIDTH 17.4 % (11.5-14.5)
[2018-09-13 06:36] LABS: ANION GAP 12 (5-13); BLOOD UREA NITROGEN 105 mg/dl (7-20); CARBON DIOXIDE 26 mmol/L (21-31); CHLORIDE 102 mmol/L (97-110); CREATININE 1.48 mg/dl (0.61-1.24); Estimated GFR 48 mL/min (>60); GLUCOSE 155 mg/dl (70-220); SODIUM 140 mmol/L (135-144)
[2018-09-13 06:51] LABS: POTASSIUM 3.7 mmol/L (3.5-5.1)
[2018-09-13] MEDS: MEROPENEM 1 GM/50ML(PMX) 50 ML IVPB ×2 (09:01→21:24)
[2018-09-13] MEDS: APIXABAN 5 MG TABLET PO ×2 (09:02→21:24)
[2018-09-13] MEDS: MULTIVITAMINS 30 ML CUP NGT (09:02)
[2018-09-13] MEDS: ASCORBIC ACID 500 MG TAB NGT (09:02)
[2018-09-13] MEDS: GABAPENTIN 400 MG CAP PO ×3 (09:02→21:25)
[2018-09-13] MEDS: BALSAM PERU/CASTOR OIL 60 GM TUBE TOP ×2 (09:17→21:25)
[2018-09-13] MEDS: DAPTOMYCIN 470 MG in SOD CHLORIDE 0.9% 100 ML IVPB ×2 (18:00→22:17)
[2018-09-13] MEDS: ATORVASTATIN 40 MG TAB PO (21:24)
[2018-09-14] MEDS: INSULIN ASPART [NOVOLOG] 3 ML PEN SC ×6 (01:34→20:55)
[2018-09-14] MEDS: METOPROLOL 50 MG TAB PO ×3 (05:59→21:00)
[2018-09-14 06:15] LABS: ANION GAP 11 (5-13); BLOOD UREA NITROGEN 105 mg/dl (7-20); CARBON DIOXIDE 27 mmol/L (21-31); CHLORIDE 103 mmol/L (97-110); GLUCOSE 97 mg/dl (70-220); SODIUM 141 mmol/L (135-144)
[2018-09-14 06:20] LABS: CREATININE 1.15 mg/dl (0.61-1.24); Estimated GFR > 60 mL/min (>60)
[2018-09-14] MEDS: NPH, HUMAN INSULIN ISOPHANE 3ML VIAL SC ×3 (06:59→21:15)
[2018-09-14] MEDS: BALSAM PERU/CASTOR OIL 60 GM TUBE TOP ×2 (08:42→20:44)
[2018-09-14] MEDS: ASCORBIC ACID 500 MG TAB NGT (08:42)
[2018-09-14] MEDS: MULTIVITAMINS 30 ML CUP NGT (08:42)
[2018-09-14] MEDS: APIXABAN 5 MG TABLET PO ×2 (08:42→20:43)
[2018-09-14] MEDS: GABAPENTIN 400 MG CAP PO ×3 (08:42→20:43)
[2018-09-14] MEDS: MEROPENEM 1 GM/50ML(PMX) 50 ML IVPB ×2 (09:46→20:43)
[2018-09-14] MEDS: ACETAMINOPHEN 650MG/20.3ML CUP PO (14:23)
[2018-09-14] MEDS: SOD CHLORIDE 0.45% 1,000 ML IV (16:50)
[2018-09-14] MEDS: DAPTOMYCIN 470 MG in SOD CHLORIDE 0.9% 100 ML IVPB (18:41)
[2018-09-14] MEDS: ATORVASTATIN 40 MG TAB PO (20:43)
[2018-09-15] MEDS: INSULIN ASPART [NOVOLOG] 3 ML PEN SC ×6 (01:00→21:54)
[2018-09-15] MEDS: METOPROLOL 50 MG TAB PO ×3 (05:44→21:30)
[2018-09-15] MEDS: NPH, HUMAN INSULIN ISOPHANE 3ML VIAL SC ×3 (05:46→21:53)
[2018-09-15] MEDS: ASCORBIC ACID 500 MG TAB NGT (09:30)
[2018-09-15] MEDS: MULTIVITAMINS 30 ML CUP NGT (09:31)
[2018-09-15] MEDS: GABAPENTIN 400 MG CAP PO ×3 (09:31→21:29)
[2018-09-15] MEDS: APIXABAN 5 MG TABLET PO ×2 (09:31→21:30)
[2018-09-15] MEDS: BALSAM PERU/CASTOR OIL 60 GM TUBE TOP ×2 (09:33→21:31)
[2018-09-15] MEDS: MEROPENEM 1 GM/50ML(PMX) 50 ML IVPB ×2 (09:49→21:30)
[2018-09-15] MEDS: SOD CHLORIDE 0.45% 1,000 ML IV (13:48)
[2018-09-15] MEDS ORDERED: hydrALAzine 20 MG INJ IV (15:30)
[2018-09-15 15:57] LABS: ADD MAN DIFF? NO
[2018-09-15 15:59] LABS: WHITE BLOOD COUNT 4.9 10^3/ul (4.8-10.8)
[2018-09-15 15:59] LABS: ABNORMAL IP MESSAGE 1; BASOPHILS % 0.6 % (0.0-2.0); EOSINOPHILS # 0.3 10^3/ul (0.0-0.5); HEMATOCRIT 26.8 % (42.0-52.0); HEMOGLOBIN 8.1 g/dl (14.0-18.0); LYMPHOCYTES # 0.6 10^3/ul (0.8-2.9); LYMPHOCYTES % 11.8 % (15.0-51.0); MEAN CORPUSCULAR HEMOGLOBIN 25.1 pg (29.0-33.0); MEAN CORPUSCULAR HGB CONC 30.2 g/dl (32.0-37.0); MEAN PLATELET VOLUME 10.4 fl (7.4-10.4); MONOCYTE # 0.6 10^3/ul (0.3-0.9); MONOCYTES % 11.3 % (0.0-11.0); NEUTROPHIL # 3.4 10^3/ul (1.6-7.5); NEUTROPHILS % 69.5 % (39.0-77.0); PLATELET COUNT 207 10^3/UL (140-415); POSITIVE DIFF @See below; RED BLOOD COUNT 3.23 10^6/ul (4.70-6.10); RED CELL DISTRIBUTION WIDTH 18.2 % (11.5-14.5)
[2018-09-15 16:19] LABS: ANION GAP 9 (5-13); BLOOD UREA NITROGEN 87 mg/dl (7-20); CALCIUM 8.9 mg/dl (8.4-10.2); CARBON DIOXIDE 27 mmol/L (21-31); CHLORIDE 104 mmol/L (97-110); CREATININE 0.85 mg/dl (0.61-1.24); Estimated GFR > 60 mL/min (>60); GLUCOSE 74 mg/dl (70-220); POTASSIUM 3.9 mmol/L (3.5-5.1); SODIUM 140 mmol/L (135-144)
[2018-09-15] MEDS: DAPTOMYCIN 470 MG in SOD CHLORIDE 0.9% 100 ML IVPB (18:06)
[2018-09-15] MEDS: ATORVASTATIN 40 MG TAB PO (21:29)
[2018-09-15] MEDS: ACETAMINOPHEN 650MG/20.3ML CUP PO (23:29)
[2018-09-16] MEDS: INSULIN ASPART [NOVOLOG] 3 ML PEN SC ×5 (00:57→18:00)
[2018-09-16 02:56] LABS: ADD MAN DIFF? NO
[2018-09-16 03:00] LABS: BASOPHILS % 0.7 % (0.0-2.0); EOSINOPHILS # 0.3 10^3/ul (0.0-0.5); EOSINOPHILS % 4.7 % (0.0-7.0); HEMATOCRIT 28.6 % (42.0-52.0); HEMOGLOBIN 8.8 g/dl (14.0-18.0); LYMPHOCYTES # 0.7 10^3/ul (0.8-2.9); LYMPHOCYTES % 13.4 % (15.0-51.0); MEAN CORPUSCULAR HEMOGLOBIN 25.7 pg (29.0-33.0); MEAN CORPUSCULAR HGB CONC 30.8 g/dl (32.0-37.0); MEAN CORPUSCULAR VOLUME 83.6 fl (82.0-101.0); MEAN PLATELET VOLUME 10.7 fl (7.4-10.4); MONOCYTE # 0.7 10^3/ul (0.3-0.9); MONOCYTES % 12.3 % (0.0-11.0); NEUTROPHIL # 3.8 10^3/ul (1.6-7.5); PLATELET COUNT 229 10^3/UL (140-415); RED BLOOD COUNT 3.42 10^6/ul (4.70-6.10); RED CELL DISTRIBUTION WIDTH 18.4 % (11.5-14.5)
[2018-09-16 03:00] LABS: WHITE BLOOD COUNT 5.5 10^3/ul (4.8-10.8)
[2018-09-16 03:16] LABS: ALANINE AMINOTRANSFERASE 28 IU/L (13-69); ALBUMIN 3.5 g/dl (3.3-4.9); ALBUMIN/GLOBULIN RATIO 0.77; ALKALINE PHOSPHATASE 252 IU/L (42-121); ANION GAP 10 (5-13); ASPARTATE AMINO TRANSFERASE 57 IU/L (15-46); BILIRUBIN,INDIRECT 0.3 mg/dl (0-1.1); BILIRUBIN,TOTAL 0.3 mg/dl (0.2-1.3); BLOOD UREA NITROGEN 79 mg/dl (7-20); CARBON DIOXIDE 26 mmol/L (21-31); CHLORIDE 107 mmol/L (97-110); CREATININE 0.74 mg/dl (0.61-1.24); Estimated GFR > 60 mL/min (>60); GLUCOSE 134 mg/dl (70-220); POTASSIUM 4.3 mmol/L (3.5-5.1); SODIUM 143 mmol/L (135-144)
[2018-09-16] MEDS: METOPROLOL 50 MG TAB PO ×3 (05:14→22:02)
[2018-09-16] MEDS: NPH, HUMAN INSULIN ISOPHANE 3ML VIAL SC ×3 (05:35→22:12)
[2018-09-16] MEDS: ACETAMINOPHEN 650MG/20.3ML CUP PO ×2 (05:38→21:01)
[2018-09-16] MEDS: BALSAM PERU/CASTOR OIL 60 GM TUBE TOP ×2 (09:00→21:01)
[2018-09-16] MEDS: APIXABAN 5 MG TABLET PO ×2 (10:04→21:00)
[2018-09-16] MEDS: MEROPENEM 1 GM/50ML(PMX) 50 ML IVPB ×2 (10:04→21:00)
[2018-09-16] MEDS: ASCORBIC ACID 500 MG TAB NGT (10:04)
[2018-09-16] MEDS: MULTIVITAMINS 30 ML CUP NGT (10:04)
[2018-09-16] MEDS: GABAPENTIN 400 MG CAP PO ×3 (10:04→21:00)
[2018-09-16] MEDS: DEXTROSE 50% 50 ML SYRINGE IV (10:24)
[2018-09-16] MEDS ORDERED: VANCOMYCIN IV PER PHARMACY XX (13:00)
[2018-09-16] MEDS: VANCOMYCIN 1.5 GM in SOD CHLORIDE 0.9% 250 ML IVPB (16:18)
[2018-09-16] MEDS: ATORVASTATIN 40 MG TAB PO (21:00)
[2018-09-17 05:44] LABS: ADD MAN DIFF? NO
[2018-09-17 05:49] LABS: WHITE BLOOD COUNT 4.6 10^3/ul (4.8-10.8)
[2018-09-17 05:49] LABS: BASOPHILS % 0.7 % (0.0-2.0); EOSINOPHILS # 0.4 10^3/ul (0.0-0.5); EOSINOPHILS % 8.5 % (0.0-7.0); HEMOGLOBIN 7.6 g/dl (14.0-18.0); LYMPHOCYTES # 0.7 10^3/ul (0.8-2.9); LYMPHOCYTES % 14.4 % (15.0-51.0); MEAN CORPUSCULAR HEMOGLOBIN 25.3 pg (29.0-33.0); MEAN CORPUSCULAR HGB CONC 30.4 g/dl (32.0-37.0); MEAN CORPUSCULAR VOLUME 83.3 fl (82.0-101.0); MEAN PLATELET VOLUME 10.4 fl (7.4-10.4); MONOCYTE # 0.6 10^3/ul (0.3-0.9); MONOCYTES % 13.1 % (0.0-11.0); NEUTROPHIL # 2.8 10^3/ul (1.6-7.5); NEUTROPHILS % 62.2 % (39.0-77.0); PLATELET COUNT 201 10^3/UL (140-415); RED CELL DISTRIBUTION WIDTH 18.8 % (11.5-14.5)
[2018-09-17] MEDS: INSULIN ASPART [NOVOLOG] 3 ML PEN SC ×4 (06:00→18:45)
[2018-09-17] MEDS: SOD CHLORIDE 0.45% 1,000 ML IV (06:09)
[2018-09-17] MEDS: METOPROLOL 50 MG TAB PO ×3 (06:09→21:48)
[2018-09-17 06:13] LABS: ANION GAP 5 (5-13); BLOOD UREA NITROGEN 63 mg/dl (7-20); CARBON DIOXIDE 27 mmol/L (21-31); CHLORIDE 109 mmol/L (97-110); CREATININE 0.62 mg/dl (0.61-1.24); Estimated GFR > 60 mL/min (>60); GLUCOSE 60 mg/dl (70-220); POTASSIUM 4.1 mmol/L (3.5-5.1); SODIUM 141 mmol/L (135-144)
[2018-09-17] MEDS: NPH, HUMAN INSULIN ISOPHANE 3ML VIAL SC ×3 (07:24→22:24)
[2018-09-17] MEDS: BALSAM PERU/CASTOR OIL 60 GM TUBE TOP ×2 (09:00→20:45)
[2018-09-17] MEDS: GABAPENTIN 400 MG CAP PO ×3 (09:42→20:45)
[2018-09-17] MEDS: MULTIVITAMINS 30 ML CUP NGT (09:42)
[2018-09-17] MEDS: ASCORBIC ACID 500 MG TAB NGT (09:42)
[2018-09-17] MEDS: MEROPENEM 1 GM/50ML(PMX) 50 ML IVPB ×2 (09:42→20:44)
[2018-09-17] MEDS: APIXABAN 5 MG TABLET PO ×2 (09:42→20:45)
[2018-09-17 16:24] LABS: IMMEDIATE SPIN CROSSMATCH 1 1
[2018-09-17] MEDS: SOD CHLORIDE 0.9% 250 ML IV* (16:38)
[2018-09-17] MEDS: ATORVASTATIN 40 MG TAB PO (20:45)
[2018-09-18] MEDS: SOD CHLORIDE 0.45% 1,000 ML IV ×2 (02:00→22:36)
[2018-09-18] MEDS: METOPROLOL 50 MG TAB PO ×3 (05:37→22:40)
[2018-09-18 05:44] LABS: ADD MAN DIFF? NO
[2018-09-18 05:47] LABS: WHITE BLOOD COUNT 7.4 10^3/ul (4.8-10.8)
[2018-09-18 05:47] LABS: BASOPHIL # 0.1 10^3/ul (0.0-0.1); BASOPHILS % 0.8 % (0.0-2.0); EOSINOPHILS # 0.5 10^3/ul (0.0-0.5); EOSINOPHILS % 6.9 % (0.0-7.0); HEMATOCRIT 31.8 % (42.0-52.0); LYMPHOCYTES % 13.1 % (15.0-51.0); MEAN CORPUSCULAR HEMOGLOBIN 26.3 pg (29.0-33.0); MEAN CORPUSCULAR HGB CONC 31.4 g/dl (32.0-37.0); MEAN CORPUSCULAR VOLUME 83.7 fl (82.0-101.0); MEAN PLATELET VOLUME 11.5 fl (7.4-10.4); MONOCYTE # 0.8 10^3/ul (0.3-0.9); MONOCYTES % 10.9 % (0.0-11.0); NEUTROPHILS % 67.5 % (39.0-77.0); PLATELET COUNT 180 10^3/UL (140-415); POSITIVE DIFF @See below; RED CELL DISTRIBUTION WIDTH 18.6 % (11.5-14.5)
[2018-09-18] MEDS: INSULIN ASPART [NOVOLOG] 3 ML PEN SC ×5 (06:00→23:33)
[2018-09-18] MEDS: NPH, HUMAN INSULIN ISOPHANE 3ML VIAL SC ×3 (06:00→23:33)
[2018-09-18 06:26] LABS: ANION GAP 7 (5-13); BLOOD UREA NITROGEN 44 mg/dl (7-20); CALCIUM 9.2 mg/dl (8.4-10.2); CARBON DIOXIDE 29 mmol/L (21-31); CHLORIDE 106 mmol/L (97-110); CREATININE 0.49 mg/dl (0.61-1.24); Estimated GFR > 60 mL/min (>60); GLUCOSE 84 mg/dl (70-220); POTASSIUM 4.5 mmol/L (3.5-5.1); SODIUM 142 mmol/L (135-144)
[2018-09-18] MEDS: APIXABAN 5 MG TABLET PO ×2 (09:10→22:35)
[2018-09-18] MEDS: ASCORBIC ACID 500 MG TAB NGT (09:10)
[2018-09-18] MEDS: MEROPENEM 1 GM/50ML(PMX) 50 ML IVPB ×2 (09:10→22:35)
[2018-09-18] MEDS: GABAPENTIN 400 MG CAP PO ×3 (09:10→22:35)
[2018-09-18] MEDS: MULTIVITAMINS 30 ML CUP NGT (09:10)
[2018-09-18] MEDS: BALSAM PERU/CASTOR OIL 60 GM TUBE TOP ×2 (09:11→21:00)
[2018-09-18] MEDS: DEXTROSE 50% 50 ML SYRINGE IV ×2 (13:30→18:08)
[2018-09-18] MEDS: FLUCONAZOLE 100 MG TAB PO (13:41)
[2018-09-18] MEDS: ATORVASTATIN 40 MG TAB PO (22:35)
[2018-09-19] MEDS: ALPRAZOLAM 0.25 MG TAB PO ×2 (02:05→20:44)
[2018-09-19] MEDS: INSULIN ASPART [NOVOLOG] 3 ML PEN SC ×3 (06:00→18:00)
[2018-09-19] MEDS: METOPROLOL 50 MG TAB PO ×3 (06:09→21:49)
[2018-09-19] MEDS: NPH, HUMAN INSULIN ISOPHANE 3ML VIAL SC ×3 (06:19→22:10)
[2018-09-19] MEDS: BALSAM PERU/CASTOR OIL 60 GM TUBE TOP ×2 (09:00→22:50)
[2018-09-19] MEDS: MEROPENEM 1 GM/50ML(PMX) 50 ML IVPB ×2 (10:34→20:44)
[2018-09-19] MEDS: MULTIVITAMINS 30 ML CUP NGT (10:34)
[2018-09-19] MEDS: FLUCONAZOLE 100 MG TAB PO (10:35)
[2018-09-19] MEDS: GABAPENTIN 400 MG CAP PO ×3 (10:35→20:44)
[2018-09-19] MEDS: ASCORBIC ACID 500 MG TAB NGT (10:35)
[2018-09-19] MEDS: APIXABAN 5 MG TABLET PO ×2 (10:35→20:44)
[2018-09-19] MEDS: ACETAMINOPHEN 650MG/20.3ML CUP PO ×2 (10:35→20:44)
[2018-09-19] MEDS: VANCOMYCIN 750 MG in SOD CHLORIDE 0.9% 150 ML IVPB (16:42)
[2018-09-19] MEDS: SOD CHLORIDE 0.45% 1,000 ML IV (17:13)
[2018-09-19] MEDS: ATORVASTATIN 40 MG TAB PO (20:44)
[2018-09-20] MEDS: INSULIN ASPART [NOVOLOG] 3 ML PEN SC ×4 (06:00→18:00)
[2018-09-20] MEDS: METOPROLOL 50 MG TAB PO ×3 (06:15→21:35)
[2018-09-20] MEDS: NPH, HUMAN INSULIN ISOPHANE 3ML VIAL SC ×3 (06:18→21:39)
[2018-09-20 06:26] LABS: ADD MAN DIFF? NO
[2018-09-20 06:42] LABS: WHITE BLOOD COUNT 7.5 10^3/ul (4.8-10.8)
[2018-09-20 06:42] LABS: BASOPHIL # 0.1 10^3/ul (0.0-0.1); BASOPHILS % 1.1 % (0.0-2.0); EOSINOPHILS # 0.5 10^3/ul (0.0-0.5); EOSINOPHILS % 7.1 % (0.0-7.0); HEMATOCRIT 32.6 % (42.0-52.0); HEMOGLOBIN 9.9 g/dl (14.0-18.0); LYMPHOCYTES # 1.1 10^3/ul (0.8-2.9); LYMPHOCYTES % 14.8 % (15.0-51.0); MEAN CORPUSCULAR HEMOGLOBIN 26.2 pg (29.0-33.0); MEAN CORPUSCULAR HGB CONC 30.4 g/dl (32.0-37.0); MEAN CORPUSCULAR VOLUME 86.2 fl (82.0-101.0); MEAN PLATELET VOLUME 11.1 fl (7.4-10.4); MONOCYTE # 0.9 10^3/ul (0.3-0.9); MONOCYTES % 11.6 % (0.0-11.0); NEUTROPHIL # 4.8 10^3/ul (1.6-7.5); NEUTROPHILS % 64.1 % (39.0-77.0); PLATELET COUNT 185 10^3/UL (140-415); POSITIVE DIFF @See below; RED BLOOD COUNT 3.78 10^6/ul (4.70-6.10); RED CELL DISTRIBUTION WIDTH 18.6 % (11.5-14.5)
[2018-09-20] MEDS: MULTIVITAMINS 30 ML CUP NGT (09:53)
[2018-09-20] MEDS: FLUCONAZOLE 100 MG TAB PO (09:53)
[2018-09-20] MEDS: APIXABAN 5 MG TABLET PO ×2 (09:53→20:50)
[2018-09-20] MEDS: GABAPENTIN 400 MG CAP PO ×3 (09:53→20:50)
[2018-09-20] MEDS: BALSAM PERU/CASTOR OIL 60 GM TUBE TOP ×2 (09:53→20:50)
[2018-09-20] MEDS: ASCORBIC ACID 500 MG TAB NGT (09:53)
[2018-09-20 10:47] LABS: ANION GAP 8 (5-13); BLOOD UREA NITROGEN 33 mg/dl (7-20); CALCIUM 9.4 mg/dl (8.4-10.2); CARBON DIOXIDE 30 mmol/L (21-31); CHLORIDE 104 mmol/L (97-110); CREATININE 0.47 mg/dl (0.61-1.24); Estimated GFR > 60 mL/min (>60); GLUCOSE 72 mg/dl (70-220); POTASSIUM 4.6 mmol/L (3.5-5.1); SODIUM 142 mmol/L (135-144)
[2018-09-20] MEDS: MEROPENEM 1 GM/50ML(PMX) 50 ML IVPB ×2 (10:51→20:50)
[2018-09-20] MEDS: ALPRAZOLAM 0.25 MG TAB PO ×2 (18:10→20:50)
[2018-09-20] MEDS: ACETAMINOPHEN 650MG/20.3ML CUP PO (20:49)
[2018-09-20] MEDS: ATORVASTATIN 40 MG TAB PO (20:50)
[2018-09-21] MEDS: INSULIN ASPART [NOVOLOG] 3 ML PEN SC ×5 (06:00→23:26)
[2018-09-21] MEDS: METOPROLOL 50 MG TAB PO ×3 (06:15→21:35)
[2018-09-21] MEDS: NPH, HUMAN INSULIN ISOPHANE 3ML VIAL SC ×3 (06:20→21:47)
[2018-09-21 06:39] LABS: ADD MAN DIFF? NO
[2018-09-21 06:53] LABS: BASOPHILS % 0.7 % (0.0-2.0); EOSINOPHILS # 0.1 10^3/ul (0.0-0.5); EOSINOPHILS % 1.6 % (0.0-7.0); HEMATOCRIT 36.6 % (42.0-52.0); HEMOGLOBIN 11.1 g/dl (14.0-18.0); LYMPHOCYTES # 0.9 10^3/ul (0.8-2.9); LYMPHOCYTES % 16.4 % (15.0-51.0); MEAN CORPUSCULAR HEMOGLOBIN 25.9 pg (29.0-33.0); MEAN CORPUSCULAR HGB CONC 30.3 g/dl (32.0-37.0); MEAN CORPUSCULAR VOLUME 85.3 fl (82.0-101.0); MEAN PLATELET VOLUME 10.4 fl (7.4-10.4); MONOCYTE # 0.8 10^3/ul (0.3-0.9); MONOCYTES % 13.6 % (0.0-11.0); NEUTROPHIL # 3.8 10^3/ul (1.6-7.5); NEUTROPHILS % 66.8 % (39.0-77.0); PLATELET COUNT 201 10^3/UL (140-415); RED BLOOD COUNT 4.29 10^6/ul (4.70-6.10); RED CELL DISTRIBUTION WIDTH 18.7 % (11.5-14.5)
[2018-09-21 06:53] LABS: WHITE BLOOD COUNT 5.7 10^3/ul (4.8-10.8)
[2018-09-21 07:23] LABS: ANION GAP 7 (5-13); BLOOD UREA NITROGEN 29 mg/dl (7-20); CALCIUM 9.1 mg/dl (8.4-10.2); CARBON DIOXIDE 30 mmol/L (21-31); CHLORIDE 106 mmol/L (97-110); CREATININE 0.47 mg/dl (0.61-1.24); Estimated GFR > 60 mL/min (>60); POTASSIUM 4.4 mmol/L (3.5-5.1); SODIUM 143 mmol/L (135-144)
[2018-09-21 07:26] LABS: GLUCOSE 23 mg/dl (70-220)
[2018-09-21] MEDS: DEXTROSE 50% 50 ML SYRINGE IV (07:36)
[2018-09-21] MEDS: MULTIVITAMINS 30 ML CUP NGT (08:20)
[2018-09-21] MEDS: ASCORBIC ACID 500 MG TAB NGT (08:20)
[2018-09-21] MEDS: FLUCONAZOLE 100 MG TAB PO (08:21)
[2018-09-21] MEDS: GABAPENTIN 400 MG CAP PO ×3 (08:21→21:36)
[2018-09-21] MEDS: APIXABAN 5 MG TABLET PO ×2 (08:21→21:37)
[2018-09-21] MEDS: MEROPENEM 1 GM/50ML(PMX) 50 ML IVPB ×2 (08:21→21:32)
[2018-09-21] MEDS: BALSAM PERU/CASTOR OIL 60 GM TUBE TOP ×2 (08:40→21:35)
[2018-09-21] MEDS: ALBUTEROL/IPRATROPIUM (NEB) 3 ML AMP HHN (11:07)
[2018-09-21] MEDS: ATORVASTATIN 40 MG TAB PO (21:37)
[2018-09-21] MEDS: ALPRAZOLAM 0.25 MG TAB PO (21:41)
[2018-09-22] MEDS: ACETAMINOPHEN 650MG/20.3ML CUP PO (03:42)
[2018-09-22] MEDS: INSULIN ASPART [NOVOLOG] 3 ML PEN SC ×4 (05:21→21:24)
[2018-09-22] MEDS: METOPROLOL 50 MG TAB PO ×3 (05:22→21:23)
[2018-09-22] MEDS: NPH, HUMAN INSULIN ISOPHANE 3ML VIAL SC ×3 (05:28→21:34)
[2018-09-22] MEDS: ASCORBIC ACID 500 MG TAB NGT (08:15)
[2018-09-22] MEDS: APIXABAN 5 MG TABLET PO ×2 (08:15→21:22)
[2018-09-22] MEDS: MULTIVITAMINS 30 ML CUP NGT (08:15)
[2018-09-22] MEDS: FLUCONAZOLE 100 MG TAB PO (08:15)
[2018-09-22] MEDS: GABAPENTIN 400 MG CAP PO ×3 (08:15→21:23)
[2018-09-22] MEDS: MEROPENEM 1 GM/50ML(PMX) 50 ML IVPB (08:22)
[2018-09-22] MEDS: BALSAM PERU/CASTOR OIL 60 GM TUBE TOP ×2 (08:29→21:24)
[2018-09-22] MEDS: ALPRAZOLAM 0.25 MG TAB PO (15:54)
[2018-09-22 16:32] LABS: VANCOMYCIN,TROUGH 9.2 ug/ml (10.0-20.0)
[2018-09-22] MEDS: VANCOMYCIN 750 MG in SOD CHLORIDE 0.9% 150 ML IVPB (16:35)
[2018-09-22] MEDS: ATORVASTATIN 40 MG TAB PO (21:22)
[2018-09-23] MEDS: METOPROLOL 50 MG TAB PO ×3 (05:48→21:10)
[2018-09-23] MEDS: INSULIN ASPART [NOVOLOG] 3 ML PEN SC ×3 (05:57→17:45)
[2018-09-23] MEDS: NPH, HUMAN INSULIN ISOPHANE 3ML VIAL SC ×3 (06:04→21:17)
[2018-09-23 06:53] LABS: ALANINE AMINOTRANSFERASE 32 IU/L (13-69); ALBUMIN 3.6 g/dl (3.3-4.9); ALKALINE PHOSPHATASE 205 IU/L (42-121); ASPARTATE AMINO TRANSFERASE 41 IU/L (15-46); BILIRUBIN,INDIRECT 1.1 mg/dl (0-1.1); BILIRUBIN,TOTAL 1.1 mg/dl (0.2-1.3); TOTAL PROTEIN 7.7 g/dl (6.1-8.1)
[2018-09-23] MEDS: FLUCONAZOLE 100 MG TAB PO (08:31)
[2018-09-23] MEDS: MULTIVITAMINS 30 ML CUP NGT (08:31)
[2018-09-23] MEDS: ASCORBIC ACID 500 MG TAB NGT (08:31)
[2018-09-23] MEDS: GABAPENTIN 400 MG CAP PO ×3 (08:31→21:10)
[2018-09-23] MEDS: APIXABAN 5 MG TABLET PO ×2 (08:31→21:10)
[2018-09-23] MEDS: BALSAM PERU/CASTOR OIL 60 GM TUBE TOP ×2 (08:32→21:11)
[2018-09-23] MEDS: VANCOMYCIN 1 GM 250 ML IVPB (16:37)
[2018-09-23] MEDS: ATORVASTATIN 40 MG TAB PO (21:10)
[2018-09-24] MEDS: ALPRAZOLAM 0.25 MG TAB PO (04:02)
[2018-09-24] MEDS: METOPROLOL 50 MG TAB PO ×3 (05:53→21:12)
[2018-09-24] MEDS: INSULIN ASPART [NOVOLOG] 3 ML PEN SC ×5 (05:54→23:17)
[2018-09-24] MEDS: NPH, HUMAN INSULIN ISOPHANE 3ML VIAL SC ×3 (05:54→21:18)
[2018-09-24 07:18] LABS: BLOOD UREA NITROGEN 31 mg/dl (7-20)
[2018-09-24 07:18] LABS: CREATININE 0.51 mg/dl (0.61-1.24)
[2018-09-24] MEDS: BALSAM PERU/CASTOR OIL 60 GM TUBE TOP ×2 (09:20→20:47)
[2018-09-24] MEDS: GABAPENTIN 400 MG CAP PO ×3 (09:20→20:47)
[2018-09-24] MEDS: MULTIVITAMINS 30 ML CUP NGT (09:20)
[2018-09-24] MEDS: APIXABAN 5 MG TABLET PO ×2 (09:20→20:47)
[2018-09-24] MEDS: ASCORBIC ACID 500 MG TAB NGT (09:20)
[2018-09-24] MEDS: FLUCONAZOLE 100 MG TAB PO (09:20)
[2018-09-24] MEDS: ATORVASTATIN 40 MG TAB PO (20:47)
[2018-09-24] MEDS: DIPHENHYDRAMINE 25 MG CAP PO (23:13)
[2018-09-25] MEDS: ALPRAZOLAM 0.25 MG TAB PO ×2 (01:51→20:18)
[2018-09-25] MEDS: NPH, HUMAN INSULIN ISOPHANE 3ML VIAL SC ×3 (05:17→21:25)
[2018-09-25] MEDS: INSULIN ASPART [NOVOLOG] 3 ML PEN SC ×3 (05:17→17:10)
[2018-09-25] MEDS: METOPROLOL 50 MG TAB PO ×3 (05:20→21:17)
[2018-09-25] MEDS: DEXTROSE 50% 50 ML SYRINGE IV (05:25)
[2018-09-25] MEDS: APIXABAN 5 MG TABLET PO ×2 (08:54→20:18)
[2018-09-25] MEDS: MULTIVITAMINS 30 ML CUP NGT (08:54)
[2018-09-25] MEDS: GABAPENTIN 400 MG CAP PO ×3 (08:54→20:18)
[2018-09-25] MEDS: FLUCONAZOLE 100 MG TAB PO (08:54)
[2018-09-25] MEDS: BALSAM PERU/CASTOR OIL 60 GM TUBE TOP ×2 (08:55→20:19)
[2018-09-25] MEDS: ASCORBIC ACID 500 MG TAB NGT (08:55)
[2018-09-25] MEDS: ATORVASTATIN 40 MG TAB PO (20:18)
[2018-09-26] MEDS: ALPRAZOLAM 0.25 MG TAB PO ×2 (04:28→21:27)
[2018-09-26] MEDS: INSULIN ASPART [NOVOLOG] 3 ML PEN SC ×4 (05:16→18:35)
[2018-09-26] MEDS: ACETAMINOPHEN 650MG/20.3ML CUP PO ×3 (05:17→21:40)
[2018-09-26] MEDS: METOPROLOL 50 MG TAB PO ×3 (05:17→21:26)
[2018-09-26] MEDS: NPH, HUMAN INSULIN ISOPHANE 3ML VIAL SC ×3 (05:22→21:54)
[2018-09-26 05:40] LABS: ADD MAN DIFF? NO
[2018-09-26 05:44] LABS: BASOPHILS % 0.6 % (0.0-2.0); EOSINOPHILS # 0.2 10^3/ul (0.0-0.5); EOSINOPHILS % 3.8 % (0.0-7.0); HEMATOCRIT 28.7 % (42.0-52.0); HEMOGLOBIN 8.7 g/dl (14.0-18.0); LYMPHOCYTES % 15.7 % (15.0-51.0); MEAN CORPUSCULAR HEMOGLOBIN 25.8 pg (29.0-33.0); MEAN CORPUSCULAR HGB CONC 30.3 g/dl (32.0-37.0); MEAN CORPUSCULAR VOLUME 85.2 fl (82.0-101.0); MEAN PLATELET VOLUME 10.5 fl (7.4-10.4); MONOCYTE # 0.6 10^3/ul (0.3-0.9); MONOCYTES % 9.9 % (0.0-11.0); NEUTROPHIL # 4.4 10^3/ul (1.6-7.5); NEUTROPHILS % 69.5 % (39.0-77.0); PLATELET COUNT 156 10^3/UL (140-415); RED BLOOD COUNT 3.37 10^6/ul (4.70-6.10); RED CELL DISTRIBUTION WIDTH 19.2 % (11.5-14.5)
[2018-09-26 05:44] LABS: WHITE BLOOD COUNT 6.4 10^3/ul (4.8-10.8)
[2018-09-26 06:06] LABS: ANION GAP 9 (5-13); BLOOD UREA NITROGEN 30 mg/dl (7-20); CALCIUM 9.4 mg/dl (8.4-10.2); CARBON DIOXIDE 29 mmol/L (21-31); CHLORIDE 103 mmol/L (97-110); Estimated GFR > 60 mL/min (>60); GLUCOSE 132 mg/dl (70-220); SODIUM 141 mmol/L (135-144)
[2018-09-26] MEDS: MULTIVITAMINS 30 ML CUP NGT (09:34)
[2018-09-26] MEDS: BALSAM PERU/CASTOR OIL 60 GM TUBE TOP ×2 (09:35→21:28)
[2018-09-26] MEDS: FLUCONAZOLE 100 MG TAB PO (09:35)
[2018-09-26] MEDS: GABAPENTIN 400 MG CAP PO ×3 (09:35→21:25)
[2018-09-26] MEDS: ASCORBIC ACID 500 MG TAB NGT (09:35)
[2018-09-26] MEDS: APIXABAN 5 MG TABLET PO ×2 (09:35→21:24)
[2018-09-26] MEDS: VANCOMYCIN 1 GM 250 ML IVPB (18:18)
[2018-09-26] MEDS: ATORVASTATIN 40 MG TAB PO (21:24)
[2018-09-27] MEDS: INSULIN ASPART [NOVOLOG] 3 ML PEN SC ×4 (01:02→18:00)
[2018-09-27] MEDS: DIPHENHYDRAMINE 25 MG CAP PO ×2 (01:19→12:48)
[2018-09-27] MEDS: METOPROLOL 50 MG TAB PO ×3 (06:22→21:44)
[2018-09-27] MEDS: NPH, HUMAN INSULIN ISOPHANE 3ML VIAL SC ×3 (06:48→22:28)
[2018-09-27] MEDS: FLUCONAZOLE 100 MG TAB PO (09:09)
[2018-09-27] MEDS: APIXABAN 5 MG TABLET PO ×2 (09:09→21:41)
[2018-09-27] MEDS: MULTIVITAMINS 30 ML CUP NGT (09:09)
[2018-09-27] MEDS: ASCORBIC ACID 500 MG TAB NGT (09:09)
[2018-09-27] MEDS: GABAPENTIN 400 MG CAP PO ×3 (09:09→21:42)
[2018-09-27] MEDS: BALSAM PERU/CASTOR OIL 60 GM TUBE TOP ×2 (09:10→21:42)
[2018-09-27] MEDS: ACETAMINOPHEN 650MG/20.3ML CUP PO (12:48)
[2018-09-27] MEDS: ATORVASTATIN 40 MG TAB PO (21:40)
[2018-09-28] MEDS: DIPHENHYDRAMINE 25 MG CAP PO ×3 (00:03→16:37)
[2018-09-28] MEDS: ACETAMINOPHEN 650MG/20.3ML CUP PO ×3 (03:26→16:37)
[2018-09-28] MEDS: INSULIN ASPART [NOVOLOG] 3 ML PEN SC ×4 (06:00→17:28)
[2018-09-28] MEDS: NPH, HUMAN INSULIN ISOPHANE 3ML VIAL SC ×3 (06:00→22:05)
[2018-09-28 06:12] LABS: ADD MAN DIFF? NO
[2018-09-28 06:15] LABS: WHITE BLOOD COUNT 5.7 10^3/ul (4.8-10.8)
[2018-09-28 06:15] LABS: BASOPHILS % 0.5 % (0.0-2.0); EOSINOPHILS # 0.2 10^3/ul (0.0-0.5); EOSINOPHILS % 3.1 % (0.0-7.0); HEMATOCRIT 27.5 % (42.0-52.0); HEMOGLOBIN 8.3 g/dl (14.0-18.0); LYMPHOCYTES # 0.7 10^3/ul (0.8-2.9); LYMPHOCYTES % 12.5 % (15.0-51.0); MEAN CORPUSCULAR HGB CONC 30.2 g/dl (32.0-37.0); MEAN CORPUSCULAR VOLUME 86.2 fl (82.0-101.0); MEAN PLATELET VOLUME 10.5 fl (7.4-10.4); MONOCYTE # 0.6 10^3/ul (0.3-0.9); MONOCYTES % 10.1 % (0.0-11.0); NEUTROPHIL # 4.2 10^3/ul (1.6-7.5); NEUTROPHILS % 73.5 % (39.0-77.0); PLATELET COUNT 138 10^3/UL (140-415); RED BLOOD COUNT 3.19 10^6/ul (4.70-6.10); RED CELL DISTRIBUTION WIDTH 19.1 % (11.5-14.5)
[2018-09-28 06:42] LABS: ANION GAP 7 (5-13); BLOOD UREA NITROGEN 31 mg/dl (7-20); CALCIUM 9.2 mg/dl (8.4-10.2); CARBON DIOXIDE 28 mmol/L (21-31); CHLORIDE 103 mmol/L (97-110); CREATININE 0.64 mg/dl (0.61-1.24); Estimated GFR > 60 mL/min (>60); GLUCOSE 98 mg/dl (70-220); POTASSIUM 4.7 mmol/L (3.5-5.1); SODIUM 138 mmol/L (135-144)
[2018-09-28] MEDS: METOPROLOL 50 MG TAB PO ×3 (06:59→21:45)
[2018-09-28] MEDS: MULTIVITAMINS 30 ML CUP NGT (07:48)
[2018-09-28] MEDS: FLUCONAZOLE 100 MG TAB PO (07:49)
[2018-09-28] MEDS: BALSAM PERU/CASTOR OIL 60 GM TUBE TOP ×2 (07:49→21:45)
[2018-09-28] MEDS: GABAPENTIN 400 MG CAP PO ×3 (07:49→21:43)
[2018-09-28] MEDS: APIXABAN 5 MG TABLET PO ×2 (07:49→21:43)
[2018-09-28] MEDS: ASCORBIC ACID 500 MG TAB NGT (07:49)
[2018-09-28] MEDS: ALPRAZOLAM 0.25 MG TAB PO (17:22)
[2018-09-28] MEDS: ATORVASTATIN 40 MG TAB PO (21:43)
[2018-09-29] MEDS: ALPRAZOLAM 0.25 MG TAB PO (03:03)
[2018-09-29] MEDS: DIPHENHYDRAMINE 25 MG CAP PO (03:03)
[2018-09-29] MEDS: METOPROLOL 50 MG TAB PO ×3 (05:06→22:00)
[2018-09-29] MEDS: NPH, HUMAN INSULIN ISOPHANE 3ML VIAL SC ×2 (05:27→23:10)
[2018-09-29] MEDS: INSULIN ASPART [NOVOLOG] 3 ML PEN SC ×5 (06:00→23:14)
[2018-09-29 06:08] LABS: ADD MAN DIFF? NO
[2018-09-29 06:15] LABS: BASOPHILS % 0.5 % (0.0-2.0); EOSINOPHILS # 0.2 10^3/ul (0.0-0.5); HEMATOCRIT 28.5 % (42.0-52.0); HEMOGLOBIN 8.6 g/dl (14.0-18.0); LYMPHOCYTES # 1.1 10^3/ul (0.8-2.9); LYMPHOCYTES % 19.8 % (15.0-51.0); MEAN CORPUSCULAR HGB CONC 30.2 g/dl (32.0-37.0); MEAN CORPUSCULAR VOLUME 86.1 fl (82.0-101.0); MEAN PLATELET VOLUME 10.4 fl (7.4-10.4); MONOCYTE # 0.6 10^3/ul (0.3-0.9); MONOCYTES % 11.1 % (0.0-11.0); NEUTROPHIL # 3.7 10^3/ul (1.6-7.5); NEUTROPHILS % 64.3 % (39.0-77.0); PLATELET COUNT 147 10^3/UL (140-415); RED BLOOD COUNT 3.31 10^6/ul (4.70-6.10)
[2018-09-29 06:15] LABS: WHITE BLOOD COUNT 5.8 10^3/ul (4.8-10.8)
[2018-09-29 06:48] LABS: ALANINE AMINOTRANSFERASE 26 IU/L (13-69); ALBUMIN 3.6 g/dl (3.3-4.9); ALBUMIN/GLOBULIN RATIO 0.69; ALKALINE PHOSPHATASE 169 IU/L (42-121); ANION GAP 9 (5-13); ASPARTATE AMINO TRANSFERASE 39 IU/L (15-46); BILIRUBIN,INDIRECT 0.7 mg/dl (0-1.1); BILIRUBIN,TOTAL 0.7 mg/dl (0.2-1.3); BLOOD UREA NITROGEN 31 mg/dl (7-20); CALCIUM 9.5 mg/dl (8.4-10.2); CARBON DIOXIDE 29 mmol/L (21-31); CHLORIDE 104 mmol/L (97-110); CREATININE 0.69 mg/dl (0.61-1.24); Estimated GFR > 60 mL/min (>60); GLUCOSE 90 mg/dl (70-220); POTASSIUM 4.9 mmol/L (3.5-5.1); SODIUM 142 mmol/L (135-144); TOTAL PROTEIN 8.8 g/dl (6.1-8.1)
[2018-09-29] MEDS: FLUCONAZOLE 100 MG TAB PO (08:30)
[2018-09-29] MEDS: ASCORBIC ACID 500 MG TAB NGT (08:30)
[2018-09-29] MEDS: APIXABAN 5 MG TABLET PO ×2 (08:30→20:45)
[2018-09-29] MEDS: GABAPENTIN 400 MG CAP PO ×3 (08:34→20:45)
[2018-09-29] MEDS: MULTIVITAMINS 30 ML CUP NGT (08:34)
[2018-09-29] MEDS: BALSAM PERU/CASTOR OIL 60 GM TUBE TOP ×2 (08:37→20:45)
[2018-09-29] MEDS: VANCOMYCIN 1 GM 250 ML IVPB (18:38)
[2018-09-29] MEDS: ATORVASTATIN 40 MG TAB PO (20:45)
[2018-09-30] MEDS: ALPRAZOLAM 0.25 MG TAB PO ×2 (03:53→13:37)
[2018-09-30] MEDS: METOPROLOL 50 MG TAB PO ×3 (05:19→21:47)
[2018-09-30] MEDS: INSULIN ASPART [NOVOLOG] 3 ML PEN SC ×3 (05:19→17:36)
[2018-09-30] MEDS: NPH, HUMAN INSULIN ISOPHANE 3ML VIAL SC ×3 (05:33→22:11)
[2018-09-30] MEDS: ASCORBIC ACID 500 MG TAB NGT (08:27)
[2018-09-30] MEDS: APIXABAN 5 MG TABLET PO ×2 (08:27→20:47)
[2018-09-30] MEDS: MULTIVITAMINS 30 ML CUP NGT (08:27)
[2018-09-30] MEDS: GABAPENTIN 400 MG CAP PO ×3 (08:27→20:47)
[2018-09-30] MEDS: BALSAM PERU/CASTOR OIL 60 GM TUBE TOP ×2 (08:35→20:47)
[2018-09-30] MEDS: DEXTROSE 50% 50 ML SYRINGE IV (17:41)
[2018-09-30] MEDS: ATORVASTATIN 40 MG TAB PO (20:47)
[2018-10-01] MEDS: INSULIN ASPART [NOVOLOG] 3 ML PEN SC ×4 (01:45→17:37)
[2018-10-01] MEDS: METOPROLOL 50 MG TAB PO ×3 (06:03→22:12)
[2018-10-01] MEDS: NPH, HUMAN INSULIN ISOPHANE 3ML VIAL SC ×3 (06:12→22:18)
[2018-10-01] MEDS: GABAPENTIN 400 MG CAP PO ×3 (09:12→22:11)
[2018-10-01] MEDS: ASCORBIC ACID 500 MG TAB NGT (09:12)
[2018-10-01] MEDS: APIXABAN 5 MG TABLET PO ×2 (09:13→22:11)
[2018-10-01] MEDS: BALSAM PERU/CASTOR OIL 60 GM TUBE TOP ×2 (09:13→22:14)
[2018-10-01] MEDS: MULTIVITAMINS 30 ML CUP NGT (09:13)
[2018-10-01] MEDS ORDERED: NPH, HUMAN INSULIN ISOPHANE 3ML VIAL SC (22:00)
[2018-10-01] MEDS: ATORVASTATIN 40 MG TAB PO (22:11)
[2018-10-02] MEDS: DIPHENHYDRAMINE 25 MG CAP PO ×4 (01:35→21:25)
[2018-10-02] MEDS: ALPRAZOLAM 0.25 MG TAB PO ×2 (01:35→21:25)
[2018-10-02] MEDS: INSULIN ASPART [NOVOLOG] 3 ML PEN SC ×4 (06:00→17:36)
[2018-10-02] MEDS: METOPROLOL 50 MG TAB PO ×3 (06:08→21:24)
[2018-10-02] MEDS: NPH, HUMAN INSULIN ISOPHANE 3ML VIAL SC ×3 (06:28→23:40)
[2018-10-02] MEDS: MULTIVITAMINS 30 ML CUP NGT (08:43)
[2018-10-02] MEDS: ASCORBIC ACID 500 MG TAB NGT (08:43)
[2018-10-02] MEDS: GABAPENTIN 400 MG CAP PO ×3 (08:43→21:24)
[2018-10-02] MEDS: APIXABAN 5 MG TABLET PO ×2 (08:43→21:23)
[2018-10-02] MEDS: BALSAM PERU/CASTOR OIL 60 GM TUBE TOP ×2 (08:45→21:26)
[2018-10-02] MEDS: VANCOMYCIN 1 GM 250 ML IVPB (17:16)
[2018-10-02] MEDS: ATORVASTATIN 40 MG TAB PO (21:24)
[2018-10-03] MEDS: INSULIN ASPART [NOVOLOG] 3 ML PEN SC ×4 (01:23→18:00)
[2018-10-03] MEDS: DIPHENHYDRAMINE 50 MG INJ IV (05:00)
[2018-10-03] MEDS: METOPROLOL 50 MG TAB PO ×3 (05:01→21:04)
[2018-10-03] MEDS: NPH, HUMAN INSULIN ISOPHANE 3ML VIAL SC ×3 (05:30→23:02)
[2018-10-03] MEDS: APIXABAN 5 MG TABLET PO ×2 (08:36→21:01)
[2018-10-03] MEDS: MULTIVITAMINS 30 ML CUP NGT (08:36)
[2018-10-03] MEDS: ASCORBIC ACID 500 MG TAB NGT (08:36)
[2018-10-03] MEDS: GABAPENTIN 400 MG CAP PO ×3 (08:36→21:01)
[2018-10-03] MEDS: BALSAM PERU/CASTOR OIL 60 GM TUBE TOP ×2 (08:37→21:02)
[2018-10-03] MEDS: ALPRAZOLAM 0.25 MG TAB PO (15:04)
[2018-10-03] MEDS: ACETAMINOPHEN 650MG/20.3ML CUP PO (16:26)
[2018-10-03] MEDS: ATORVASTATIN 40 MG TAB PO (21:01)
[2018-10-03 22:36] LABS: ADD UMIC NO; UR ASCORBIC ACID 40 mg/dL (NEGATIVE); UR BILIRUBIN (Dip) NEGATIVE (NEGATIVE); UR BLOOD (Dip) NEGATIVE (NEGATIVE); UR CLARITY SLIGHTLY CLOUDY (CLEAR); UR COLOR AMBER (YELLOW); UR GLUCOSE (Dip) NEGATIVE (NEGATIVE); UR KETONES (Dip) NEGATIVE (NEGATIVE); UR LEUKOCYTE ESTERASE (Dip) NEGATIVE Leu/ul (NEGATIVE); UR NITRITE (Dip) NEGATIVE (NEGATIVE); UR RBC 3 /HPF (0-5); UR SPECIFIC GRAVITY (Dip) 1.013 (1.003-1.030); UR TOTAL PROTEIN (Dip) NEGATIVE (NEGATIVE); UR UROBILINOGEN (Dip) 2+ mg/dL (NEGATIVE); UR WBC 2 /HPF (0-5)
[2018-10-04] MEDS: METOPROLOL 50 MG TAB PO ×3 (05:27→20:31)
[2018-10-04] MEDS: DIPHENHYDRAMINE 50 MG INJ IV (05:35)
[2018-10-04] MEDS: INSULIN ASPART [NOVOLOG] 3 ML PEN SC ×4 (05:44→18:00)
[2018-10-04] MEDS: NPH, HUMAN INSULIN ISOPHANE 3ML VIAL SC ×3 (05:44→21:03)
[2018-10-04 06:28] LABS: ADD MAN DIFF? NO
[2018-10-04 06:34] LABS: BASOPHILS % 0.7 % (0.0-2.0); EOSINOPHILS # 0.2 10^3/ul (0.0-0.5); EOSINOPHILS % 4.5 % (0.0-7.0); HEMOGLOBIN 7.7 g/dl (14.0-18.0); LYMPHOCYTES # 0.7 10^3/ul (0.8-2.9); LYMPHOCYTES % 17.7 % (15.0-51.0); MEAN CORPUSCULAR HEMOGLOBIN 26.1 pg (29.0-33.0); MEAN CORPUSCULAR HGB CONC 30.8 g/dl (32.0-37.0); MEAN CORPUSCULAR VOLUME 84.7 fl (82.0-101.0); MEAN PLATELET VOLUME 10.8 fl (7.4-10.4); MONOCYTE # 0.5 10^3/ul (0.3-0.9); MONOCYTES % 12.9 % (0.0-11.0); NEUTROPHIL # 2.6 10^3/ul (1.6-7.5); NEUTROPHILS % 63.7 % (39.0-77.0); PLATELET COUNT 200 10^3/UL (140-415); RED BLOOD COUNT 2.95 10^6/ul (4.70-6.10); RED CELL DISTRIBUTION WIDTH 19.4 % (11.5-14.5)
[2018-10-04 06:55] LABS: ALANINE AMINOTRANSFERASE 204 IU/L (13-69); ALBUMIN 3.6 g/dl (3.3-4.9); ALBUMIN/GLOBULIN RATIO 0.72; ALKALINE PHOSPHATASE 453 IU/L (42-121); ANION GAP 6 (5-13); ASPARTATE AMINO TRANSFERASE 198 IU/L (15-46); BILIRUBIN,INDIRECT 0.9 mg/dl (0-1.1); BILIRUBIN,TOTAL 0.9 mg/dl (0.2-1.3); BLOOD UREA NITROGEN 38 mg/dl (7-20); CALCIUM 9.4 mg/dl (8.4-10.2); CARBON DIOXIDE 30 mmol/L (21-31); CHLORIDE 104 mmol/L (97-110); CREATININE 0.79 mg/dl (0.61-1.24); Estimated GFR > 60 mL/min (>60); GLUCOSE 144 mg/dl (70-220); INR 1.78; POTASSIUM 4.9 mmol/L (3.5-5.1); PROTIME 20.8 Sec (11.9-14.9); PT RATIO 1.6; SODIUM 140 mmol/L (135-144); TOTAL PROTEIN 8.6 g/dl (6.1-8.1)
[2018-10-04 06:56] LABS: PARTIAL THROMBOPLASTIN TIME 57.8 Sec (23.0-35.0)
[2018-10-04 07:06] LABS: MAGNESIUM 2.9 mg/dl (1.7-2.5)
[2018-10-04] MEDS: MULTIVITAMINS 30 ML CUP NGT (08:29)
[2018-10-04] MEDS: GABAPENTIN 400 MG CAP PO ×3 (08:29→20:30)
[2018-10-04] MEDS: ASCORBIC ACID 500 MG TAB NGT (08:29)
[2018-10-04] MEDS: APIXABAN 5 MG TABLET PO ×2 (08:29→20:30)
[2018-10-04] MEDS: BALSAM PERU/CASTOR OIL 60 GM TUBE TOP ×2 (08:35→20:32)
[2018-10-04] MEDS: ACETAMINOPHEN 650MG/20.3ML CUP PO (12:10)
[2018-10-04] MEDS: DOXYCYCLINE 100 MG TAB PO ×2 (14:59→20:31)
[2018-10-04] MEDS: ATORVASTATIN 40 MG TAB PO (20:30)
[2018-10-05] MEDS: INSULIN ASPART [NOVOLOG] 3 ML PEN SC ×4 (01:30→18:00)
[2018-10-05] MEDS: METOPROLOL 50 MG TAB PO ×3 (05:19→22:17)
[2018-10-05] MEDS: NPH, HUMAN INSULIN ISOPHANE 3ML VIAL SC ×3 (05:27→22:47)
[2018-10-05 05:36] LABS: ADD MAN DIFF? NO
[2018-10-05 05:39] LABS: BASOPHILS % 0.2 % (0.0-2.0); EOSINOPHILS # 0.1 10^3/ul (0.0-0.5); HEMATOCRIT 25.8 % (42.0-52.0); LYMPHOCYTES # 0.9 10^3/ul (0.8-2.9); LYMPHOCYTES % 19.3 % (15.0-51.0); MEAN CORPUSCULAR HEMOGLOBIN 26.6 pg (29.0-33.0); MEAN CORPUSCULAR VOLUME 85.7 fl (82.0-101.0); MEAN PLATELET VOLUME 10.4 fl (7.4-10.4); MONOCYTE # 0.6 10^3/ul (0.3-0.9); MONOCYTES % 12.5 % (0.0-11.0); NEUTROPHIL # 2.9 10^3/ul (1.6-7.5); NEUTROPHILS % 65.5 % (39.0-77.0); PLATELET COUNT 197 10^3/UL (140-415); RED BLOOD COUNT 3.01 10^6/ul (4.70-6.10); RED CELL DISTRIBUTION WIDTH 19.2 % (11.5-14.5)
[2018-10-05 05:39] LABS: WHITE BLOOD COUNT 4.4 10^3/ul (4.8-10.8)
[2018-10-05 06:02] LABS: ANION GAP 6 (5-13); BLOOD UREA NITROGEN 42 mg/dl (7-20); CALCIUM 9.3 mg/dl (8.4-10.2); CARBON DIOXIDE 31 mmol/L (21-31); CHLORIDE 101 mmol/L (97-110); CREATININE 0.76 mg/dl (0.61-1.24); Estimated GFR > 60 mL/min (>60); GLUCOSE 183 mg/dl (70-220); SODIUM 138 mmol/L (135-144)
[2018-10-05 06:04] LABS: POTASSIUM 4.9 mmol/L (3.5-5.1)
[2018-10-05] MEDS: MULTIVITAMINS 30 ML CUP NGT (08:12)
[2018-10-05] MEDS: GABAPENTIN 400 MG CAP PO ×3 (08:12→22:17)
[2018-10-05] MEDS: DOXYCYCLINE 100 MG TAB PO ×2 (08:12→22:17)
[2018-10-05] MEDS: ASCORBIC ACID 500 MG TAB NGT (08:12)
[2018-10-05] MEDS: APIXABAN 5 MG TABLET PO ×2 (08:12→22:17)
[2018-10-05] MEDS: BALSAM PERU/CASTOR OIL 60 GM TUBE TOP ×2 (08:12→22:20)
[2018-10-05] MEDS: ACETAMINOPHEN 650MG/20.3ML CUP PO (08:13)
[2018-10-05] MEDS: FLUCONAZOLE 100 MG TAB PO (12:36)
[2018-10-05] MEDS: MEROPENEM 500MG/50 ML (PMX) 50 ML IVPB ×2 (14:48→23:53)
[2018-10-05] MEDS: ATORVASTATIN 40 MG TAB PO (22:17)
[2018-10-06] MEDS: METOPROLOL 50 MG TAB PO ×2 (05:40→14:29)
[2018-10-06] MEDS: NPH, HUMAN INSULIN ISOPHANE 3ML VIAL SC ×2 (05:48→14:38)
[2018-10-06] MEDS: INSULIN ASPART [NOVOLOG] 3 ML PEN SC ×4 (06:00→17:22)
[2018-10-06 06:13] LABS: ADD MAN DIFF? NO
[2018-10-06 06:16] LABS: WHITE BLOOD COUNT 4.3 10^3/ul (4.8-10.8)
[2018-10-06 06:16] LABS: BASOPHILS % 0.5 % (0.0-2.0); EOSINOPHILS # 0.1 10^3/ul (0.0-0.5); EOSINOPHILS % 2.8 % (0.0-7.0); HEMATOCRIT 24.5 % (42.0-52.0); HEMOGLOBIN 7.4 g/dl (14.0-18.0); LYMPHOCYTES # 0.8 10^3/ul (0.8-2.9); LYMPHOCYTES % 17.4 % (15.0-51.0); MEAN CORPUSCULAR HEMOGLOBIN 26.2 pg (29.0-33.0); MEAN CORPUSCULAR HGB CONC 30.2 g/dl (32.0-37.0); MEAN CORPUSCULAR VOLUME 86.9 fl (82.0-101.0); MEAN PLATELET VOLUME 10.5 fl (7.4-10.4); MONOCYTE # 0.6 10^3/ul (0.3-0.9); MONOCYTES % 13.5 % (0.0-11.0); NEUTROPHIL # 2.8 10^3/ul (1.6-7.5); NEUTROPHILS % 65.3 % (39.0-77.0); PLATELET COUNT 209 10^3/UL (140-415); RED BLOOD COUNT 2.82 10^6/ul (4.70-6.10); RED CELL DISTRIBUTION WIDTH 19.2 % (11.5-14.5)
[2018-10-06 06:45] LABS: ANION GAP 9 (5-13); BLOOD UREA NITROGEN 36 mg/dl (7-20); CALCIUM 9.2 mg/dl (8.4-10.2); CARBON DIOXIDE 31 mmol/L (21-31); CHLORIDE 100 mmol/L (97-110); CREATININE 0.63 mg/dl (0.61-1.24); Estimated GFR > 60 mL/min (>60); GLUCOSE 155 mg/dl (70-220); POTASSIUM 4.8 mmol/L (3.5-5.1); SODIUM 140 mmol/L (135-144)
[2018-10-06] MEDS: MULTIVITAMINS 30 ML CUP NGT (08:51)
[2018-10-06] MEDS: MEROPENEM 500MG/50 ML (PMX) 50 ML IVPB (08:51)
[2018-10-06] MEDS: ASCORBIC ACID 500 MG TAB NGT (08:51)
[2018-10-06] MEDS: GABAPENTIN 400 MG CAP PO ×2 (08:51→12:19)
[2018-10-06] MEDS: FLUCONAZOLE 100 MG TAB PO (08:51)
[2018-10-06] MEDS: DOXYCYCLINE 100 MG TAB PO (08:51)
[2018-10-06] MEDS: APIXABAN 5 MG TABLET PO (08:51)
[2018-10-06] MEDS: BALSAM PERU/CASTOR OIL 60 GM TUBE TOP (08:52)
[2018-10-06] MEDS: DEXTROSE 50% 50 ML SYRINGE IV (21:07)
== END 2018-10-06 21:30 | DRG 4 ==
LOC: 2NE 05-23 15:50 → 5EC 06-02 23:15 → TEL 07-28 09:20 → 5EC 08-01 18:05 → 6WM 08-04 03:49 → ICU 08-11 16:54 → 6WM 08-26 10:50 → 5EC 08-03 00:21 → E/R 19:32 → 6WM 08-03 08:03 → TEL 22:43
PROC: 0B110F4 Bypass Trachea to Cutaneous with Tracheostomy Device, Open Approach (ICD-10-PCS; principal; 2018-08-23 13:00)
PROC: 0BH17EZ Insertion of Endotracheal Airway into Trachea, Via Natural or Artificial Opening (ICD-10-PCS; 2018-08-23 13:00)
PROC: 5A1955Z Respiratory Ventilation, Greater than 96 Consecutive Hours (ICD-10-PCS; 2018-08-23 13:00)
PROC: 02HV33Z Insertion of Infusion Device into Superior Vena Cava, Percutaneous Approach (ICD-10-PCS; 2018-08-23 13:00)
PROC: 0DH63UZ Insertion of Feeding Device into Stomach, Percutaneous Approach (ICD-10-PCS; 2018-08-23 13:00)
DX: N17.0 Acute kidney failure with tubular necrosis (principal); L89.153 Pressure ulcer of sacral region, stage 3; R65.21 Severe sepsis with septic shock; K85.90 Acute pancreatitis without necrosis or infection, unspecified; J96.01 Acute respiratory failure with hypoxia; I50.33 Acute on chronic diastolic (congestive) heart failure; J69.0 Pneumonitis due to inhalation of food and vomit; A41.02 Sepsis due to Methicillin resistant Staphylococcus aureus; I42.9 Cardiomyopathy, unspecified; G93.40 Encephalopathy, unspecified; B37.49 Other urogenital candidiasis; I48.92 Unspecified atrial flutter; I13.0 Hypertensive heart and chronic kidney disease with heart failure and stage 1 through stage 4 chronic kidney disease, or unspecified chronic kidney disease; E87.0 Hyperosmolality and hypernatremia; K22.10 Ulcer of esophagus without bleeding; K59.00 Constipation, unspecified; R07.89 Other chest pain; E87.5 Hyperkalemia; I48.0 Paroxysmal atrial fibrillation; E11.22 Type 2 diabetes mellitus with diabetic chronic kidney disease; N18.9 Chronic kidney disease, unspecified; I25.10 Atherosclerotic heart disease of native coronary artery without angina pectoris; F32.9 Major depressive disorder, single episode, unspecified; N18.1 Chronic kidney disease, stage 1; G89.22 Chronic post-thoracotomy pain; K80.20 Calculus of gallbladder without cholecystitis without obstruction; E78.5 Hyperlipidemia, unspecified; E11.649 Type 2 diabetes mellitus with hypoglycemia without coma; E11.65 Type 2 diabetes mellitus with hyperglycemia; K44.9 Diaphragmatic hernia without obstruction or gangrene; E11.43 Type 2 diabetes mellitus with diabetic autonomic (poly)neuropathy; K31.84 Gastroparesis; Z89.512 Acquired absence of left leg below knee; Z95.1 Presence of aortocoronary bypass graft; Z22.322 Carrier or suspected carrier of Methicillin resistant Staphylococcus aureus; Z95.3 Presence of xenogenic heart valve; Z95.0 Presence of cardiac pacemaker; Z89.511 Acquired absence of right leg below knee; Z79.01 Long term (current) use of anticoagulants; Z79.4 Long term (current) use of insulin; Z93.3 Colostomy status
CPT/HCPCS: 31500; 36415; 36430; 36569; 36600; 70450; 71045; 71250; 74018; 74176; 76705; 76937; 78226; 78806; 80048; 80053; 80061; 80076; 80162; 80202; 81001; 81003; 82150; 82270; 82550; 82565; 82607; 82728; 82746; 82803; 82947; 82962; 83036; 83540; 83605; 83690; 83735; 83880; 84100; 84132; 84478; 84484; 84520; 85014; 85018; 85025; 85045; 85610; 85730; 86644; 86704; 86709; 86803; 86850; 86900; 86901; 86920; 87040; 87045; 87070; 87075; 87081; 87086; 87340; 89220; 93005; 93306; 93312; 94003; 94640; 94660; 94664; 94770; 96374; 96375; 97110; 97163; 97530; 99285-25; G0378

== ENCOUNTER 2018-12-23 20:20 | Inpatient (IN) | payer MEDICARE, MEDICAID ==
[2018-12-23 21:42] LABS: ABNORMAL IP MESSAGE 1; HEMATOCRIT 26.1 % (42.0-52.0); HEMOGLOBIN 7.5 g/dl (14.0-18.0); MEAN CORPUSCULAR HEMOGLOBIN 25.7 pg (29.0-33.0); MEAN CORPUSCULAR HGB CONC 28.7 g/dl (32.0-37.0); MEAN CORPUSCULAR VOLUME 89.4 fl (82.0-101.0); MEAN PLATELET VOLUME 9.4 fl (7.4-10.4); POSITIVE DIFF @See below; RED BLOOD COUNT 2.92 10^6/ul (4.70-6.10); RED CELL DISTRIBUTION WIDTH 18.4 % (11.5-14.5)
[2018-12-23 21:42] LABS: WHITE BLOOD COUNT 6.5 10^3/ul (4.8-10.8)
[2018-12-23 21:52] LABS: ADD MAN DIFF? YES; PLATELET COUNT 2 10^3/UL (140-415)
[2018-12-23 21:59] LABS: INR 1.25; PROTIME 15.8 Sec (11.9-14.9); PT RATIO 1.2
[2018-12-23 22:00] LABS: PARTIAL THROMBOPLASTIN TIME 39.4 Sec (23.0-35.0)
[2018-12-23 22:02] LABS: ALANINE AMINOTRANSFERASE 14 IU/L (13-69); ALBUMIN 3.4 g/dl (3.3-4.9); ALBUMIN/GLOBULIN RATIO 0.69; ALKALINE PHOSPHATASE 176 IU/L (42-121); ANION GAP 10 (5-13); ASPARTATE AMINO TRANSFERASE 43 IU/L (15-46); BILIRUBIN,INDIRECT 1.3 mg/dl (0-1.1); BILIRUBIN,TOTAL 1.3 mg/dl (0.2-1.3); BLOOD UREA NITROGEN 47 mg/dl (7-20); CARBON DIOXIDE 33 mmol/L (21-31); CHLORIDE 98 mmol/L (97-110); CREATININE 0.64 mg/dl (0.61-1.24); Estimated GFR > 60 mL/min (>60); GLUCOSE 91 mg/dl (70-220); POTASSIUM 4.5 mmol/L (3.5-5.1); SODIUM 141 mmol/L (135-144); TOTAL PROTEIN 8.3 g/dl (6.1-8.1)
[2018-12-23 22:17] LABS: ANISOCYTOSIS 1+ (0-0); BAND NEUTROPHILS % (M) 1 % (0-4); EOSINOPHILS % (M) 1 % (0-7); GIANT THROMBO% (M) 1 % (0-0); LYMPHOCYTES #M 1.1 10^3/ul (0.8-2.9); LYMPHOCYTES % (M) 17 % (15-51); MICROCYTOSIS 1+ (0-0); MONOCYTE #M 0.7 10^3/ul (0.3-0.9); MONOCYTES % (M) 11 % (0-11); PLATELET ESTIMATE SIG DECREASED; POLYCHROMASIA 2+ (0-0); REACTIVE LYMPHOCYTES #M 0.1 10^3/ul (0.0-0.0); REACTIVE LYMPHOCYTES% (M) 2 % (0-0); SEG NEUT #M 4.4 10^3/ul (1.6-7.5); SEGMENTED NEUTROPHILS (M) % 68 % (39-77); SMUDGE%M 5 % (0-0)
[2018-12-23 22:40] LABS: B-TYPE NATRIURETIC PEPTIDE 12700 PG/ML (0-125)
[2018-12-23] MEDS ORDERED: ONDANSETRON 4 MG INJ IV (23:30)
[2018-12-23] MEDS ORDERED: NACL 0.9% 3 ML SYG IV (23:30)
[2018-12-23] MEDS ORDERED: morphine 2 MG INJ IV (23:30)
[2018-12-23] MEDS ORDERED: ACETAMINOPHEN 325 MG TAB PO (23:30)
[2018-12-24] MEDS: FUROSEMIDE 40 MG INJ IV (00:15)
[2018-12-24 05:17] LABS: IMMEDIATE SPIN CROSSMATCH 1 2
[2018-12-24] MEDS: FAMOTIDINE 20 MG INJ IV ×2 (08:56→21:57)
[2018-12-24] MEDS: ACETAMINOPHEN 325 MG TAB PO (10:37)
[2018-12-24] MEDS: HYDROmorphONE 1 MG/ML SYG IV (13:35)
[2018-12-24 14:56] LABS: ADD MAN DIFF? NO
[2018-12-24 14:58] LABS: ABNORMAL IP MESSAGE 1; BASOPHILS % 0.5 % (0.0-2.0); EOSINOPHILS # 0.1 10^3/ul (0.0-0.5); EOSINOPHILS % 1.2 % (0.0-7.0); HEMATOCRIT 28.2 % (42.0-52.0); HEMOGLOBIN 8.6 g/dl (14.0-18.0); LYMPHOCYTES # 0.8 10^3/ul (0.8-2.9); LYMPHOCYTES % 12.6 % (15.0-51.0); MEAN CORPUSCULAR HEMOGLOBIN 26.9 pg (29.0-33.0); MEAN CORPUSCULAR HGB CONC 30.5 g/dl (32.0-37.0); MEAN CORPUSCULAR VOLUME 88.1 fl (82.0-101.0); MONOCYTE # 0.5 10^3/ul (0.3-0.9); NEUTROPHIL # 5.1 10^3/ul (1.6-7.5); NEUTROPHILS % 76.6 % (39.0-77.0); POSITIVE DIFF @See below; RED CELL DISTRIBUTION WIDTH 16.8 % (11.5-14.5)
[2018-12-24 14:58] LABS: WHITE BLOOD COUNT 6.6 10^3/ul (4.8-10.8)
[2018-12-24 15:20] LABS: ALANINE AMINOTRANSFERASE 16 IU/L (13-69); ALBUMIN 3.1 g/dl (3.3-4.9); ALKALINE PHOSPHATASE 154 IU/L (42-121); ANION GAP 9 (5-13); ASPARTATE AMINO TRANSFERASE 32 IU/L (15-46); BILIRUBIN,INDIRECT 1.9 mg/dl (0-1.1); BILIRUBIN,TOTAL 1.9 mg/dl (0.2-1.3); BLOOD UREA NITROGEN 35 mg/dl (7-20); CALCIUM 8.8 mg/dl (8.4-10.2); CARBON DIOXIDE 31 mmol/L (21-31); CHLORIDE 102 mmol/L (97-110); Estimated GFR > 60 mL/min (>60); GLUCOSE 130 mg/dl (70-220); POTASSIUM 4.4 mmol/L (3.5-5.1); SODIUM 142 mmol/L (135-144); TOTAL PROTEIN 7.5 g/dl (6.1-8.1)
[2018-12-24 15:21] LABS: PLATELET COUNT 2 10^3/UL (140-415)
[2018-12-24 15:26] LABS: HEMOGLOBIN A1C 5.1 % (0-5.9)
[2018-12-24] MEDS: LORAZEPAM 2 MG INJ IV ×2 (18:39→21:58)
[2018-12-25] MEDS: LORAZEPAM 2 MG INJ IV ×4 (02:04→22:45)
[2018-12-25 07:08] LABS: WHITE BLOOD COUNT 4.6 10^3/ul (4.8-10.8)
[2018-12-25 07:08] LABS: ABNORMAL IP MESSAGE 1; HEMATOCRIT 30.2 % (42.0-52.0); HEMOGLOBIN 9.2 g/dl (14.0-18.0); MEAN CORPUSCULAR HEMOGLOBIN 27.1 pg (29.0-33.0); MEAN CORPUSCULAR HGB CONC 30.5 g/dl (32.0-37.0); MEAN CORPUSCULAR VOLUME 88.8 fl (82.0-101.0); POSITIVE DIFF @See below; RED CELL DISTRIBUTION WIDTH 16.7 % (11.5-14.5)
[2018-12-25 07:14] LABS: ADD MAN DIFF? YES; PLATELET COUNT 1 10^3/UL (140-415)
[2018-12-25 07:32] LABS: ANION GAP 9 (5-13); BLOOD UREA NITROGEN 29 mg/dl (7-20); CALCIUM 9.2 mg/dl (8.4-10.2); CARBON DIOXIDE 32 mmol/L (21-31); CHLORIDE 104 mmol/L (97-110); CREATININE 0.68 mg/dl (0.61-1.24); Estimated GFR > 60 mL/min (>60); GLUCOSE 169 mg/dl (70-220); POTASSIUM 4.3 mmol/L (3.5-5.1); SODIUM 145 mmol/L (135-144)
[2018-12-25] MEDS: FAMOTIDINE 20 MG INJ IV (09:02)
[2018-12-25 09:06] LABS: TYPE AND SCREEN 1
[2018-12-25 09:09] LABS: ANISOCYTOSIS 1+ (0-0); BAND NEUTROPHILS #M 0.1 10^3/ul (0.0-0.6); BAND NEUTROPHILS % (M) 3 % (0-4); BASOPHILS % (M) 1 % (0-2); EOSINOPHILS % (M) 2 % (0-7); GIANT THROMBO% (M) 1 % (0-0); LYMPHOCYTES #M 0.5 10^3/ul (0.8-2.9); LYMPHOCYTES % (M) 11 % (15-51); MICROCYTOSIS 1+ (0-0); MONOCYTE #M 0.1 10^3/ul (0.3-0.9); MONOCYTES % (M) 4 % (0-11); MYELOCYTES % (M) 1 % (0-0); PLATELET ESTIMATE SIG DECREASED; POLYCHROMASIA 1+ (0-0); SEG NEUT #M 3.6 10^3/ul (1.6-7.5); SEGMENTED NEUTROPHILS (M) % 78 % (39-77); SMUDGE%M 3 % (0-0)
[2018-12-25] MEDS: FUROSEMIDE 20 MG INJ IV ×2 (11:06→20:28)
[2018-12-25] MEDS ORDERED: IMMUNE GLOBULIN (HUMAN) 6 GM INJ IV (15:00)
[2018-12-25] MEDS: DEXAMETHASONE 4 MG TAB PO (15:46)
[2018-12-25] MEDS ORDERED: METOPROLOL 5 MG INJ IV (20:00)
[2018-12-25] MEDS: ATORVASTATIN 20 MG TAB PO (20:27)
[2018-12-25] MEDS: ISOSORBIDE DINITRATE 10 MG TAB PO (20:28)
[2018-12-25] MEDS: [UNRECOGNIZED DRUG - OTHER] IVPB (20:33)
[2018-12-25] MEDS: HYDROmorphONE 1 MG/ML SYG IV (20:50)
[2018-12-25] MEDS: MUPIROCIN 2% 22 GM OINT TOP (20:50)
[2018-12-25 20:56] LABS: ABNORMAL IP MESSAGE 1; HEMATOCRIT 29.5 % (42.0-52.0); MEAN CORPUSCULAR HEMOGLOBIN 26.9 pg (29.0-33.0); MEAN CORPUSCULAR HGB CONC 30.5 g/dl (32.0-37.0); MEAN CORPUSCULAR VOLUME 88.3 fl (82.0-101.0); POSITIVE DIFF @See below; RED BLOOD COUNT 3.34 10^6/ul (4.70-6.10); RED CELL DISTRIBUTION WIDTH 16.6 % (11.5-14.5)
[2018-12-25 21:12] LABS: ADD MAN DIFF? YES; PLATELET COUNT 2 10^3/UL (140-415)
[2018-12-25] MEDS: METOPROLOL 50 MG TAB PO (22:45)
[2018-12-25 22:50] LABS: ANISOCYTOSIS 1+ (0-0); BAND NEUTROPHILS #M 0.2 10^3/ul (0.0-0.6); BAND NEUTROPHILS % (M) 4 % (0-4); GIANT THROMBO% (M) 1 % (0-0); LYMPHOCYTES #M 0.2 10^3/ul (0.8-2.9); LYMPHOCYTES % (M) 4 % (15-51); MICROCYTOSIS 1+ (0-0); PLATELET ESTIMATE SIG DECREASED; POIKILOCYTOSIS 2+ (0-0); POLYCHROMASIA 3+ (0-0); SEG NEUT #M 5.5 10^3/ul (1.6-7.5); SEGMENTED NEUTROPHILS (M) % 92 % (39-77); SMUDGE%M 33 % (0-0)
[2018-12-26 01:55] LABS: TROPONIN-I 0.071 ng/ml (0.000-0.120)
[2018-12-26] MEDS: HYDROmorphONE 1 MG/ML SYG IV ×3 (02:41→21:40)
[2018-12-26] MEDS: LORAZEPAM 2 MG INJ IV ×2 (04:19→08:12)
[2018-12-26] MEDS: hydrALAzine 20 MG INJ IV (04:19)
[2018-12-26] MEDS: METOPROLOL 50 MG TAB PO ×3 (06:16→21:40)
[2018-12-26] MEDS: FUROSEMIDE 20 MG INJ IV ×2 (06:16→09:14)
[2018-12-26] MEDS: PANTOPRAZOLE 40 MG INJ IV (06:33)
[2018-12-26] MEDS: ONDANSETRON 4 MG INJ IV (08:09)
[2018-12-26 08:44] LABS: ADD MAN DIFF? NO
[2018-12-26 08:57] LABS: WHITE BLOOD COUNT 5.1 10^3/ul (4.8-10.8)
[2018-12-26 08:57] LABS: ABNORMAL IP MESSAGE 1; BASOPHILS % 0.2 % (0.0-2.0); HEMATOCRIT 30.3 % (42.0-52.0); LYMPHOCYTES # 0.3 10^3/ul (0.8-2.9); LYMPHOCYTES % 6.7 % (15.0-51.0); MEAN CORPUSCULAR HEMOGLOBIN 26.6 pg (29.0-33.0); MEAN CORPUSCULAR HGB CONC 29.7 g/dl (32.0-37.0); MEAN CORPUSCULAR VOLUME 89.6 fl (82.0-101.0); MONOCYTE # 0.2 10^3/ul (0.3-0.9); MONOCYTES % 4.5 % (0.0-11.0); NEUTROPHIL # 4.5 10^3/ul (1.6-7.5); NEUTROPHILS % 87.8 % (39.0-77.0); POSITIVE DIFF @See below; RED BLOOD COUNT 3.38 10^6/ul (4.70-6.10)
[2018-12-26] MEDS: DEXAMETHASONE 4 MG TAB PO (09:14)
[2018-12-26] MEDS: ISOSORBIDE DINITRATE 10 MG TAB PO ×3 (09:14→21:43)
[2018-12-26] MEDS: MUPIROCIN 2% 22 GM OINT TOP ×2 (09:15→23:32)
[2018-12-26 09:20] LABS: ANION GAP 17 (5-13); BLOOD UREA NITROGEN 29 mg/dl (7-20); CALCIUM 9.3 mg/dl (8.4-10.2); CARBON DIOXIDE 29 mmol/L (21-31); CHLORIDE 98 mmol/L (97-110); CREATININE 0.67 mg/dl (0.61-1.24); Estimated GFR > 60 mL/min (>60); GLUCOSE 352 mg/dl (70-220); POTASSIUM 4.3 mmol/L (3.5-5.1); SODIUM 144 mmol/L (135-144)
[2018-12-26] MEDS: DIPHENHYDRAMINE 50 MG INJ IV (09:21)
[2018-12-26 09:25] LABS: TROPONIN-I 0.053 ng/ml (0.000-0.120)
[2018-12-26 09:30] LABS: PLATELET COUNT 7 10^3/UL (140-415)
[2018-12-26] MEDS: [UNRECOGNIZED DRUG - OTHER] IVPB (10:12)
[2018-12-26 15:56] LABS: TROPONIN-I 0.055 ng/ml (0.000-0.120)
[2018-12-26 18:02] LABS: PLATELET COUNT 11 10^3/UL (140-415)
[2018-12-26] MEDS: ATORVASTATIN 20 MG TAB PO (21:43)
[2018-12-27] MEDS: LORAZEPAM 2 MG INJ IV ×2 (02:00→22:18)
[2018-12-27] MEDS: PANTOPRAZOLE 40 MG INJ IV (05:33)
[2018-12-27] MEDS: FUROSEMIDE 20 MG INJ IV ×2 (05:33→17:35)
[2018-12-27] MEDS: METOPROLOL 50 MG TAB PO ×3 (05:34→22:54)
[2018-12-27] MEDS: HYDROmorphONE 1 MG/ML SYG IV (05:35)
[2018-12-27 08:38] LABS: ADD MAN DIFF? NO
[2018-12-27 08:46] LABS: ABNORMAL IP MESSAGE 1; BASOPHILS % 0.2 % (0.0-2.0); HEMATOCRIT 26.7 % (42.0-52.0); HEMOGLOBIN 7.8 g/dl (14.0-18.0); LYMPHOCYTES # 0.4 10^3/ul (0.8-2.9); LYMPHOCYTES % 7.6 % (15.0-51.0); MEAN CORPUSCULAR HEMOGLOBIN 26.7 pg (29.0-33.0); MEAN CORPUSCULAR HGB CONC 29.2 g/dl (32.0-37.0); MEAN CORPUSCULAR VOLUME 91.4 fl (82.0-101.0); MONOCYTE # 0.7 10^3/ul (0.3-0.9); MONOCYTES % 12.5 % (0.0-11.0); NEUTROPHIL # 4.3 10^3/ul (1.6-7.5); NEUTROPHILS % 78.8 % (39.0-77.0); POSITIVE DIFF @See below; RED BLOOD COUNT 2.92 10^6/ul (4.70-6.10); RED CELL DISTRIBUTION WIDTH 16.8 % (11.5-14.5)
[2018-12-27 08:46] LABS: WHITE BLOOD COUNT 5.5 10^3/ul (4.8-10.8)
[2018-12-27 08:49] LABS: MEAN PLATELET VOLUME 13.4 fl (7.4-10.4)
[2018-12-27] MEDS: DEXAMETHASONE 4 MG TAB PO (08:50)
[2018-12-27 08:51] LABS: PLATELET COUNT 25 10^3/UL (140-415)
[2018-12-27] MEDS: COLLAGENASE 5 GM (UD JAR) TOP (08:51)
[2018-12-27] MEDS: ISOSORBIDE DINITRATE 10 MG TAB PO ×3 (08:51→22:53)
[2018-12-27] MEDS: MUPIROCIN 2% 22 GM OINT TOP ×2 (08:52→22:54)
[2018-12-27 09:23] LABS: ANION GAP 7 (5-13); BLOOD UREA NITROGEN 52 mg/dl (7-20); CALCIUM 8.8 mg/dl (8.4-10.2); CARBON DIOXIDE 33 mmol/L (21-31); CHLORIDE 102 mmol/L (97-110); Estimated GFR > 60 mL/min (>60); POTASSIUM 4.7 mmol/L (3.5-5.1); SODIUM 142 mmol/L (135-144)
[2018-12-27 09:32] LABS: GLUCOSE 554 mg/dl (70-220)
[2018-12-27] MEDS: INSULIN ASPART [NOVOLOG] 3 ML PEN SC ×3 (11:59→17:22)
[2018-12-27] MEDS ORDERED: INSULIN ISOPHAN SC (14:00)
[2018-12-27] MEDS: IMMUNE GLOBULIN GAMMA 10 GM IV (17:40)
[2018-12-27] MEDS: IMMUN GLOB G(IGG)/PRO/IGA 0-50 40 GM IV (22:44)
[2018-12-27] MEDS: ATORVASTATIN 20 MG TAB PO (22:53)
[2018-12-27] MEDS: INSULIN ASP PROT/ASPART (70/30) PEN SC (23:21)
[2018-12-27] MEDS: Insulin NOVOLOG SS MODERATE Algorithm(NPO/TPN/ENTERAL FEEDS) SC (23:22)
[2018-12-28] MEDS ORDERED: INSULIN ASPART [NOVOLOG] 3 ML PEN SC
[2018-12-28] MEDS: IMMUN GLOB G(IGG)/PRO/IGA 0-50 40 GM IV (00:38)
[2018-12-28] MEDS: HYDROmorphONE 1 MG/ML SYG IV ×3 (02:22→21:15)
[2018-12-28] MEDS: FUROSEMIDE 20 MG INJ IV ×2 (06:03→18:22)
[2018-12-28] MEDS: LORAZEPAM 2 MG INJ IV (06:03)
[2018-12-28] MEDS: PANTOPRAZOLE 40 MG INJ IV (06:03)
[2018-12-28] MEDS: METOPROLOL 50 MG TAB PO ×3 (06:04→22:11)
[2018-12-28] MEDS: INSULIN ASP PROT/ASPART (70/30) PEN SC ×3 (06:43→22:22)
[2018-12-28] MEDS: Insulin NOVOLOG SS MODERATE Algorithm(NPO/TPN/ENTERAL FEEDS) SC ×3 (06:43→18:27)
[2018-12-28 08:24] LABS: ADD MAN DIFF? NO
[2018-12-28 08:28] LABS: ABNORMAL IP MESSAGE 1; BASOPHILS % 0.2 % (0.0-2.0); EOSINOPHILS % 0.6 % (0.0-7.0); HEMATOCRIT 27.5 % (42.0-52.0); LYMPHOCYTES # 0.6 10^3/ul (0.8-2.9); LYMPHOCYTES % 11.5 % (15.0-51.0); MEAN CORPUSCULAR HEMOGLOBIN 26.8 pg (29.0-33.0); MEAN CORPUSCULAR HGB CONC 29.1 g/dl (32.0-37.0); MONOCYTE # 0.5 10^3/ul (0.3-0.9); MONOCYTES % 8.9 % (0.0-11.0); NEUTROPHIL # 4.1 10^3/ul (1.6-7.5); NEUTROPHILS % 77.7 % (39.0-77.0); PLATELET COUNT 33 10^3/UL (140-415); POSITIVE DIFF @See below; RED BLOOD COUNT 2.99 10^6/ul (4.70-6.10); RED CELL DISTRIBUTION WIDTH 16.5 % (11.5-14.5)
[2018-12-28 08:28] LABS: WHITE BLOOD COUNT 5.3 10^3/ul (4.8-10.8)
[2018-12-28] MEDS: DEXAMETHASONE 4 MG TAB PO (08:47)
[2018-12-28] MEDS: COLLAGENASE 5 GM (UD JAR) TOP (08:47)
[2018-12-28] MEDS: ISOSORBIDE DINITRATE 10 MG TAB PO ×3 (08:48→21:14)
[2018-12-28] MEDS: MUPIROCIN 2% 22 GM OINT TOP ×2 (08:48→22:12)
[2018-12-28 09:00] LABS: ANION GAP 6 (5-13); BLOOD UREA NITROGEN 58 mg/dl (7-20); CALCIUM 8.8 mg/dl (8.4-10.2); CARBON DIOXIDE 36 mmol/L (21-31); CHLORIDE 101 mmol/L (97-110); CREATININE 1.06 mg/dl (0.61-1.24); Estimated GFR > 60 mL/min (>60); GLUCOSE 239 mg/dl (70-220); SODIUM 143 mmol/L (135-144)
[2018-12-28] MEDS: ATORVASTATIN 20 MG TAB PO (21:14)
[2018-12-29] MEDS: Insulin NOVOLOG SS MODERATE Algorithm(NPO/TPN/ENTERAL FEEDS) SC ×4 (01:00→17:47)
[2018-12-29] MEDS: LORAZEPAM 2 MG INJ IV ×3 (01:19→23:24)
[2018-12-29] MEDS: HYDROmorphONE 1 MG/ML SYG IV ×3 (03:52→17:41)
[2018-12-29] MEDS: METOPROLOL 50 MG TAB PO ×3 (06:16→21:57)
[2018-12-29] MEDS: FUROSEMIDE 20 MG INJ IV ×2 (06:16→17:44)
[2018-12-29] MEDS: INSULIN ASP PROT/ASPART (70/30) PEN SC ×3 (06:31→22:24)
[2018-12-29] MEDS: PANTOPRAZOLE 40 MG INJ IV (06:38)
[2018-12-29 06:49] LABS: ADD MAN DIFF? NO
[2018-12-29 06:54] LABS: ABNORMAL IP MESSAGE 1; BASOPHILS % 0.2 % (0.0-2.0); EOSINOPHILS % 0.3 % (0.0-7.0); HEMATOCRIT 34.1 % (42.0-52.0); LYMPHOCYTES # 1.6 10^3/ul (0.8-2.9); LYMPHOCYTES % 18.1 % (15.0-51.0); MEAN CORPUSCULAR HEMOGLOBIN 26.7 pg (29.0-33.0); MEAN CORPUSCULAR HGB CONC 29.3 g/dl (32.0-37.0); MEAN CORPUSCULAR VOLUME 90.9 fl (82.0-101.0); MEAN PLATELET VOLUME 12.4 fl (7.4-10.4); MONOCYTE # 0.7 10^3/ul (0.3-0.9); MONOCYTES % 8.2 % (0.0-11.0); NEUTROPHIL # 6.2 10^3/ul (1.6-7.5); NEUTROPHILS % 71.5 % (39.0-77.0); NUCLEATED RED BLOOD CELLS # 0.1 10^3/ul (0.0-0.0); NUCLEATED RED BLOOD CELLS% 0.8 /100WBC (0.0-0.0); POSITIVE DIFF @See below; RED BLOOD COUNT 3.75 10^6/ul (4.70-6.10)
[2018-12-29 06:54] LABS: WHITE BLOOD COUNT 8.7 10^3/ul (4.8-10.8)
[2018-12-29 06:59] LABS: PLATELET COUNT 69 10^3/UL (140-415)
[2018-12-29 07:24] LABS: BLOOD UREA NITROGEN 62 mg/dl (7-20); CALCIUM 9.3 mg/dl (8.4-10.2); CHLORIDE 96 mmol/L (97-110); CREATININE 0.74 mg/dl (0.61-1.24); Estimated GFR > 60 mL/min (>60); GLUCOSE 189 mg/dl (70-220); POTASSIUM 4.4 mmol/L (3.5-5.1); SODIUM 146 mmol/L (135-144)
[2018-12-29 07:38] LABS: ANION GAP 8 (5-13)
[2018-12-29 07:40] LABS: CARBON DIOXIDE 42 mmol/L (21-31)
[2018-12-29] MEDS: MUPIROCIN 2% 22 GM OINT TOP ×2 (08:46→21:56)
[2018-12-29] MEDS: ISOSORBIDE DINITRATE 10 MG TAB PO ×3 (08:46→21:54)
[2018-12-29] MEDS: COLLAGENASE 5 GM (UD JAR) TOP (08:47)
[2018-12-29] MEDS: ATORVASTATIN 20 MG TAB PO (21:54)
[2018-12-30] MEDS: HYDROmorphONE 1 MG/ML SYG IV ×2 (00:46→14:27)
[2018-12-30] MEDS: Insulin NOVOLOG SS MODERATE Algorithm(NPO/TPN/ENTERAL FEEDS) SC ×3 (06:00→12:03)
[2018-12-30] MEDS: PANTOPRAZOLE 40 MG INJ IV (06:09)
[2018-12-30] MEDS: METOPROLOL 50 MG TAB PO ×2 (06:10→13:23)
[2018-12-30] MEDS: FUROSEMIDE 20 MG INJ IV (06:11)
[2018-12-30] MEDS: INSULIN ASP PROT/ASPART (70/30) PEN SC ×2 (06:29→13:46)
[2018-12-30 06:34] LABS: ADD MAN DIFF? NO
[2018-12-30 06:41] LABS: ABNORMAL IP MESSAGE 1; BASOPHILS % 0.3 % (0.0-2.0); EOSINOPHILS # 0.2 10^3/ul (0.0-0.5); EOSINOPHILS % 1.3 % (0.0-7.0); HEMATOCRIT 35.6 % (42.0-52.0); HEMOGLOBIN 10.7 g/dl (14.0-18.0); LYMPHOCYTES # 1.4 10^3/ul (0.8-2.9); LYMPHOCYTES % 12.5 % (15.0-51.0); MEAN CORPUSCULAR HEMOGLOBIN 26.9 pg (29.0-33.0); MEAN CORPUSCULAR HGB CONC 30.1 g/dl (32.0-37.0); MEAN CORPUSCULAR VOLUME 89.4 fl (82.0-101.0); MEAN PLATELET VOLUME 12.1 fl (7.4-10.4); MONOCYTE # 0.7 10^3/ul (0.3-0.9); MONOCYTES % 6.4 % (0.0-11.0); NEUTROPHILS % 78.1 % (39.0-77.0); NUCLEATED RED BLOOD CELLS # 0.1 10^3/ul (0.0-0.0); NUCLEATED RED BLOOD CELLS% 0.4 /100WBC (0.0-0.0); PLATELET COUNT 64 10^3/UL (140-415); POSITIVE DIFF @See below; RED BLOOD COUNT 3.98 10^6/ul (4.70-6.10); RED CELL DISTRIBUTION WIDTH 17.6 % (11.5-14.5)
[2018-12-30 06:41] LABS: WHITE BLOOD COUNT 11.5 10^3/ul (4.8-10.8)
[2018-12-30 07:08] LABS: ANION GAP 6 (5-13); BLOOD UREA NITROGEN 52 mg/dl (7-20); CALCIUM 9.1 mg/dl (8.4-10.2); CARBON DIOXIDE 39 mmol/L (21-31); CHLORIDE 98 mmol/L (97-110); CREATININE 0.65 mg/dl (0.61-1.24); Estimated GFR > 60 mL/min (>60); GLUCOSE 159 mg/dl (70-220); POTASSIUM 4.3 mmol/L (3.5-5.1); SODIUM 143 mmol/L (135-144)
[2018-12-30] MEDS: predniSONE 50 MG TAB PO (08:53)
[2018-12-30] MEDS: LORAZEPAM 2 MG INJ IV ×2 (08:53→13:23)
[2018-12-30] MEDS: ISOSORBIDE DINITRATE 10 MG TAB PO ×2 (08:53→13:21)
[2018-12-30] MEDS: COLLAGENASE 5 GM (UD JAR) TOP (09:00)
[2018-12-30] MEDS: MUPIROCIN 2% 22 GM OINT TOP (09:07)
== END 2018-12-30 18:26 | DRG 813 ==
LOC: E/R 20:20 → TEL 23:06
PROC: 30233R1 Transfusion of Nonautologous Platelets into Peripheral Vein, Percutaneous Approach (ICD-10-PCS; 2018-12-23)
PROC: 5A1955Z Respiratory Ventilation, Greater than 96 Consecutive Hours (ICD-10-PCS; 2018-12-23)
PROC: 30233N1 Transfusion of Nonautologous Red Blood Cells into Peripheral Vein, Percutaneous Approach (ICD-10-PCS; principal; 2018-12-24)
PROC: 30233R1 Transfusion of Nonautologous Platelets into Peripheral Vein, Percutaneous Approach (ICD-10-PCS; 2018-12-24)
DX: D69.3 Immune thrombocytopenic purpura (principal); L89.154 Pressure ulcer of sacral region, stage 4; I50.33 Acute on chronic diastolic (congestive) heart failure; J96.10 Chronic respiratory failure, unspecified whether with hypoxia or hypercapnia; J95.01 Hemorrhage from tracheostomy stoma; I48.92 Unspecified atrial flutter; I42.9 Cardiomyopathy, unspecified; D62 Acute posthemorrhagic anemia; Z99.81 Dependence on supplemental oxygen; I11.0 Hypertensive heart disease with heart failure; I44.1 Atrioventricular block, second degree; E11.9 Type 2 diabetes mellitus without complications; F32.9 Major depressive disorder, single episode, unspecified; I25.10 Atherosclerotic heart disease of native coronary artery without angina pectoris; E78.5 Hyperlipidemia, unspecified; I34.2 Nonrheumatic mitral (valve) stenosis; D69.6 Thrombocytopenia, unspecified; Z79.4 Long term (current) use of insulin; Z95.2 Presence of prosthetic heart valve; Z95.1 Presence of aortocoronary bypass graft; Z89.512 Acquired absence of left leg below knee; Z89.511 Acquired absence of right leg below knee; Z87.891 Personal history of nicotine dependence
CPT/HCPCS: 36415; 36430; 71045; 80048; 80053; 82962; 83036; 83880; 84484; 85025; 85049; 85384; 85610; 85730; 86850; 86900; 86901; 86920; 87081; 92610; 93005; 93306; 94002; 94003; 99291-25

== ENCOUNTER 2019-01-20 18:40 | Inpatient (IN) | payer MEDICARE, MEDICAID ==
[2019-01-20] MEDS ORDERED: ONDANSETRON 4 MG INJ IV (19:30)
[2019-01-20] MEDS ORDERED: ONDANSETRON 4 MG TAB PO (19:30)
[2019-01-20] MEDS ORDERED: NITROGLYCERIN (SL) 0.4 MG TAB SL (19:30)
[2019-01-20] MEDS ORDERED: ACETAMINOPHEN 325 MG TAB PO (19:30)
[2019-01-20] MEDS ORDERED: NACL 0.9% 3 ML SYG IV (19:30)
[2019-01-20] MEDS: ALPRAZOLAM 0.25 MG TAB PO (23:14)
[2019-01-20] MEDS: ISOSORBIDE DINITRATE 10 MG TAB PO (23:15)
[2019-01-20] MEDS: APIXABAN 5 MG TABLET PO (23:15)
[2019-01-20] MEDS: SENNA TAB PO (23:15)
[2019-01-20] MEDS: ATORVASTATIN 20 MG TAB PO (23:15)
[2019-01-20] MEDS: FAMOTIDINE 20 MG INJ IV (23:15)
[2019-01-20] MEDS: GABAPENTIN 400 MG CAP PO (23:16)
[2019-01-20] MEDS: METOPROLOL 50 MG TAB PO (23:16)
[2019-01-20] MEDS: LORAZEPAM 2 MG INJ IV (23:16)
[2019-01-21] MEDS: traMADol 50 MG TAB PO ×2 (00:05→20:20)
[2019-01-21] MEDS: morphine 2 MG INJ IV (00:05)
[2019-01-21] MEDS ORDERED: PENDING SANTYL ORDER FOR WOUND CARE XX (01:30)
[2019-01-21 06:06] LABS: ADD MAN DIFF? NO
[2019-01-21] MEDS: METOPROLOL 50 MG TAB PO ×3 (06:21→22:40)
[2019-01-21] MEDS: PANTOPRAZOLE (EC) 40 MG TAB PO (06:21)
[2019-01-21] MEDS: GABAPENTIN 400 MG CAP PO ×3 (06:22→22:39)
[2019-01-21 06:27] LABS: ABNORMAL IP MESSAGE 1; EOSINOPHILS % 0.2 % (0.0-7.0); HEMATOCRIT 23.5 % (42.0-52.0); HEMOGLOBIN 7.2 g/dl (14.0-18.0); LYMPHOCYTES # 0.7 10^3/ul (0.8-2.9); LYMPHOCYTES % 11.9 % (15.0-51.0); MEAN CORPUSCULAR HEMOGLOBIN 27.6 pg (29.0-33.0); MEAN CORPUSCULAR HGB CONC 30.6 g/dl (32.0-37.0); MONOCYTE # 0.4 10^3/ul (0.3-0.9); MONOCYTES % 6.5 % (0.0-11.0); NEUTROPHIL # 4.6 10^3/ul (1.6-7.5); NEUTROPHILS % 80.5 % (39.0-77.0); NUCLEATED RED BLOOD CELLS # 0.1 10^3/ul (0.0-0.0); NUCLEATED RED BLOOD CELLS% 0.9 /100WBC (0.0-0.0); POSITIVE DIFF @See below; RED BLOOD COUNT 2.61 10^6/ul (4.70-6.10); RED CELL DISTRIBUTION WIDTH 17.9 % (11.5-14.5)
[2019-01-21 06:27] LABS: WHITE BLOOD COUNT 5.7 10^3/ul (4.8-10.8)
[2019-01-21 06:47] LABS: ALANINE AMINOTRANSFERASE 57 IU/L (13-69); ALBUMIN 2.7 g/dl (3.3-4.9); ALBUMIN/GLOBULIN RATIO 0.69; ALKALINE PHOSPHATASE 132 IU/L (42-121); ANION GAP 5 (5-13); ASPARTATE AMINO TRANSFERASE 53 IU/L (15-46); BILIRUBIN,INDIRECT 1.5 mg/dl (0-1.1); BILIRUBIN,TOTAL 1.5 mg/dl (0.2-1.3); BLOOD UREA NITROGEN 86 mg/dl (7-20); CALCIUM 9.2 mg/dl (8.4-10.2); CARBON DIOXIDE 34 mmol/L (21-31); CHLORIDE 103 mmol/L (97-110); CREATININE 0.92 mg/dl (0.61-1.24); Estimated GFR > 60 mL/min (>60); GLUCOSE 137 mg/dl (70-220); POTASSIUM 4.4 mmol/L (3.5-5.1); SODIUM 142 mmol/L (135-144); TOTAL PROTEIN 6.6 g/dl (6.1-8.1)
[2019-01-21 07:04] LABS: PLATELET COUNT 13 10^3/UL (140-415)
[2019-01-21 07:12] LABS: HEMOGLOBIN A1C 5.6 % (0-5.9)
[2019-01-21] MEDS: FAMOTIDINE 20 MG INJ IV ×2 (08:42→20:20)
[2019-01-21] MEDS: SENNA TAB PO ×2 (08:42→20:20)
[2019-01-21] MEDS: ALPRAZOLAM 0.25 MG TAB PO ×2 (08:42→20:19)
[2019-01-21] MEDS: ISOSORBIDE DINITRATE 10 MG TAB PO ×3 (08:43→20:19)
[2019-01-21] MEDS: MULTIVITAMINS THERAPEUTIC TAB PO (08:43)
[2019-01-21] MEDS: FERROUS SULFATE (EC) 325 MG TAB PO (08:43)
[2019-01-21] MEDS: ASCORBIC ACID 500 MG TAB PO (08:43)
[2019-01-21] MEDS: APIXABAN 5 MG TABLET PO ×2 (08:43→20:19)
[2019-01-21] MEDS: DULOXETINE 30 MG CAP DR PO (08:44)
[2019-01-21] MEDS: ACETAMINOPHEN 325 MG TAB PO (10:01)
[2019-01-21] MEDS: INSULIN ASPART [NOVOLOG] 3 ML PEN SC ×2 (17:24→20:48)
[2019-01-21] MEDS: ATORVASTATIN 20 MG TAB PO (20:19)
[2019-01-22] MEDS: INSULIN ASPART [NOVOLOG] 3 ML PEN SC ×6 (02:18→21:40)
[2019-01-22] MEDS: PANTOPRAZOLE (EC) 40 MG TAB PO (06:12)
[2019-01-22] MEDS: METOPROLOL 50 MG TAB PO ×3 (06:12→21:37)
[2019-01-22] MEDS: GABAPENTIN 400 MG CAP PO ×3 (06:12→21:36)
[2019-01-22] MEDS: FERROUS SULFATE (EC) 325 MG TAB PO (09:02)
[2019-01-22] MEDS: FAMOTIDINE 20 MG INJ IV (09:02)
[2019-01-22] MEDS: MULTIVITAMINS THERAPEUTIC TAB PO (09:02)
[2019-01-22] MEDS: ASCORBIC ACID 500 MG TAB PO (09:02)
[2019-01-22] MEDS: APIXABAN 5 MG TABLET PO (09:02)
[2019-01-22] MEDS: SENNA TAB PO ×2 (09:02→21:36)
[2019-01-22] MEDS: DULOXETINE 30 MG CAP DR PO (09:02)
[2019-01-22] MEDS: ISOSORBIDE DINITRATE 10 MG TAB PO ×3 (09:03→21:37)
[2019-01-22] MEDS: ATORVASTATIN 20 MG TAB PO (21:36)
[2019-01-23] MEDS: ALPRAZOLAM 0.25 MG TAB PO (00:20)
[2019-01-23] MEDS: traMADol 50 MG TAB PO (00:20)
[2019-01-23] MEDS: INSULIN ASPART [NOVOLOG] 3 ML PEN SC ×8 (00:34→23:33)
[2019-01-23] MEDS: PANTOPRAZOLE (EC) 40 MG TAB PO (06:02)
[2019-01-23] MEDS: GABAPENTIN 400 MG CAP PO ×3 (06:02→22:37)
[2019-01-23] MEDS: METOPROLOL 50 MG TAB PO ×3 (06:02→22:00)
[2019-01-23 06:41] LABS: WHITE BLOOD COUNT 6.7 10^3/ul (4.8-10.8)
[2019-01-23 06:41] LABS: ABNORMAL IP MESSAGE 1; HEMATOCRIT 24.2 % (42.0-52.0); HEMOGLOBIN 7.6 g/dl (14.0-18.0); MEAN CORPUSCULAR HEMOGLOBIN 28.1 pg (29.0-33.0); MEAN CORPUSCULAR HGB CONC 31.4 g/dl (32.0-37.0); MEAN CORPUSCULAR VOLUME 89.6 fl (82.0-101.0); NUCLEATED RED BLOOD CELLS% 0.3 /100WBC (0.0-0.0); POSITIVE DIFF @See below; RED CELL DISTRIBUTION WIDTH 18.1 % (11.5-14.5)
[2019-01-23 06:58] LABS: ADD MAN DIFF? YES; PLATELET COUNT 3 10^3/UL (140-415)
[2019-01-23 08:10] LABS: ANISOCYTOSIS 3+ (0-0); BAND NEUTROPHILS % (M) 16 % (0-4); GIANT THROMBO% (M) 1 % (0-0); LYMPHOCYTES #M 0.7 10^3/ul (0.8-2.9); LYMPHOCYTES % (M) 11 % (15-51); MICROCYTOSIS 3+ (0-0); MONOCYTE #M 0.2 10^3/ul (0.3-0.9); MONOCYTES % (M) 4 % (0-11); PLATELET ESTIMATE SIG DECREASED; POIKILOCYTOSIS 1+ (0-0); POLYCHROMASIA 1+ (0-0); REACTIVE LYMPHOCYTES #M 0.2 10^3/ul (0.0-0.0); REACTIVE LYMPHOCYTES% (M) 3 % (0-0); SEG NEUT #M 4.5 10^3/ul (1.6-7.5); SEGMENTED NEUTROPHILS (M) % 66 % (39-77); SMUDGE%M 9 % (0-0)
[2019-01-23] MEDS: ISOSORBIDE DINITRATE 10 MG TAB PO ×3 (09:00→22:37)
[2019-01-23] MEDS: SENNA TAB PO ×2 (09:54→22:37)
[2019-01-23] MEDS: MULTIVITAMINS THERAPEUTIC TAB PO (09:54)
[2019-01-23] MEDS: ASCORBIC ACID 500 MG TAB PO (09:54)
[2019-01-23] MEDS: FERROUS SULFATE (EC) 325 MG TAB PO (09:54)
[2019-01-23] MEDS: DULOXETINE 30 MG CAP DR PO (09:54)
[2019-01-23] MEDS ORDERED: DEXAMETHASONE 10 MG/ML 1 ML INJ IV (10:00)
[2019-01-23] MEDS: SOD CHLORIDE 0.9% 250 ML IV (11:02)
[2019-01-23 11:33] LABS: ABNORMAL IP MESSAGE 1; HEMATOCRIT 24.2 % (42.0-52.0); HEMOGLOBIN 7.4 g/dl (14.0-18.0); MEAN CORPUSCULAR HEMOGLOBIN 27.5 pg (29.0-33.0); MEAN CORPUSCULAR HGB CONC 30.6 g/dl (32.0-37.0); POSITIVE DIFF @See below; RED BLOOD COUNT 2.69 10^6/ul (4.70-6.10); RED CELL DISTRIBUTION WIDTH 18.2 % (11.5-14.5)
[2019-01-23 11:33] LABS: WHITE BLOOD COUNT 7.1 10^3/ul (4.8-10.8)
[2019-01-23 11:46] LABS: ADD MAN DIFF? YES; PLATELET COUNT 3 10^3/UL (140-415)
[2019-01-23 11:47] LABS: ANION GAP 6 (5-13); BLOOD UREA NITROGEN 92 mg/dl (7-20); CALCIUM 8.4 mg/dl (8.4-10.2); CARBON DIOXIDE 33 mmol/L (21-31); CHLORIDE 99 mmol/L (97-110); CREATININE 1.17 mg/dl (0.61-1.24); Estimated GFR > 60 mL/min (>60); GLUCOSE 228 mg/dl (70-220); POTASSIUM 4.3 mmol/L (3.5-5.1); SODIUM 138 mmol/L (135-144)
[2019-01-23] MEDS: SOD CHLORIDE 0.9% IV (12:02)
[2019-01-23] MEDS: DEXAMETHASONE IV (12:02)
[2019-01-23 12:27] LABS: ANISOCYTOSIS 3+ (0-0); BAND NEUTROPHILS #M 1.9 10^3/ul (0.0-0.6); BAND NEUTROPHILS % (M) 27 % (0-4); EOSINOPHILS % (M) 4 % (0-7); ERYTHROBLAST% (NRBC) (M) 2 % (0-0); LYMPHOCYTES #M 0.4 10^3/ul (0.8-2.9); LYMPHOCYTES % (M) 6 % (15-51); MICROCYTOSIS 3+ (0-0); MONOCYTE #M 0.2 10^3/ul (0.3-0.9); MONOCYTES % (M) 4 % (0-11); PLATELET ESTIMATE SIG DECREASED; POLYCHROMASIA 1+ (0-0); REACTIVE LYMPHOCYTES% (M) 1 % (0-0); SEG NEUT #M 4.3 10^3/ul (1.6-7.5); SEGMENTED NEUTROPHILS (M) % 58 % (39-77); SMUDGE%M 16 % (0-0)
[2019-01-23] MEDS: LORAZEPAM 2 MG INJ IV (12:55)
[2019-01-23 13:17] LABS: AADO2 Arterial 119.4 mmHg (7.0-24.0); Allen Test ACCEPTAB; Arterial Base Excess 8.8 mmol/L (-3.0-3); Arterial Blood Gas Oxygen Sat 98.1 mmHG (95.0-98.0); Arterial COHb 0.4 % (0.0-3.0); Arterial Fraction of Oxyhgb 97.3 % (93.0-99.0); Arterial HCO3 32.5 mmol/L (22.0-26.0); Arterial MetHb 0.4 % (0.0-1.5); Arterial pCO2 41.4 mmhg (35-45); MODE VENT - AC; Site Right Radial
[2019-01-23] MEDS: ACETAMINOPHEN 650MG/20.3ML CUP NGT (15:16)
[2019-01-23] MEDS: DIPHENHYDRAMINE 50 MG INJ IV (15:16)
[2019-01-23] MEDS: IMMUN GLOB G(IGG) 10% 200 ML IV (15:51)
[2019-01-23] MEDS: ATORVASTATIN 20 MG TAB PO (22:37)
[2019-01-23] MEDS: INSULIN GLARGINE [LANTus] (100 UNITS/ML) SYG SC (22:54)
[2019-01-24] MEDS: INSULIN ASPART [NOVOLOG] 3 ML PEN SC ×8 (02:59→22:55)
[2019-01-24] MEDS: GABAPENTIN 400 MG CAP PO ×3 (06:04→22:12)
[2019-01-24] MEDS: METOPROLOL 50 MG TAB PO ×3 (06:04→22:12)
[2019-01-24 06:06] LABS: WHITE BLOOD COUNT 4.3 10^3/ul (4.8-10.8)
[2019-01-24 06:06] LABS: ABNORMAL IP MESSAGE 1; HEMATOCRIT 24.8 % (42.0-52.0); HEMOGLOBIN 7.7 g/dl (14.0-18.0); MEAN CORPUSCULAR HEMOGLOBIN 27.8 pg (29.0-33.0); MEAN CORPUSCULAR VOLUME 89.5 fl (82.0-101.0); POSITIVE DIFF @See below; RED BLOOD COUNT 2.77 10^6/ul (4.70-6.10); RED CELL DISTRIBUTION WIDTH 17.3 % (11.5-14.5)
[2019-01-24] MEDS: PANTOPRAZOLE (EC) 40 MG TAB PO (06:07)
[2019-01-24 06:34] LABS: PLATELET COUNT 11 10^3/UL (140-415)
[2019-01-24 06:35] LABS: ADD MAN DIFF? YES
[2019-01-24 06:46] LABS: ANION GAP 9 (5-13); BLOOD UREA NITROGEN 93 mg/dl (7-20); CALCIUM 7.9 mg/dl (8.4-10.2); CARBON DIOXIDE 30 mmol/L (21-31); CHLORIDE 98 mmol/L (97-110); CREATININE 0.89 mg/dl (0.61-1.24); Estimated GFR > 60 mL/min (>60); GLUCOSE 281 mg/dl (70-220); POTASSIUM 4.6 mmol/L (3.5-5.1); SODIUM 137 mmol/L (135-144)
[2019-01-24] MEDS ORDERED: IMMUNE GLOBULIN (HUMAN) 6 GM INJ IV (09:00)
[2019-01-24 09:03] LABS: ANISOCYTOSIS 2+ (0-0); BAND NEUTROPHILS #M 0.7 10^3/ul (0.0-0.6); BAND NEUTROPHILS % (M) 17 % (0-4); LYMPHOCYTES % (M) 2 % (15-51); MICROCYTOSIS 1+ (0-0); MONOCYTES % (M) 1 % (0-11); PLATELET ESTIMATE SIG DECREASED; POLYCHROMASIA 1+ (0-0); SEG NEUT #M 3.5 10^3/ul (1.6-7.5); SEGMENTED NEUTROPHILS (M) % 80 % (39-77); SMUDGE%M 23 % (0-0)
[2019-01-24] MEDS: SENNA TAB PO ×2 (10:49→22:10)
[2019-01-24] MEDS: FERROUS SULFATE (EC) 325 MG TAB PO (10:50)
[2019-01-24] MEDS: ASCORBIC ACID 500 MG TAB PO (10:50)
[2019-01-24] MEDS: DULOXETINE 30 MG CAP DR PO (10:50)
[2019-01-24] MEDS: MULTIVITAMINS THERAPEUTIC TAB PO (10:50)
[2019-01-24] MEDS: ISOSORBIDE DINITRATE 10 MG TAB PO ×3 (10:52→22:11)
[2019-01-24] MEDS ORDERED: IMMUN GLOB 10% IV (13:00)
[2019-01-24] MEDS: DIPHENHYDRAMINE 50 MG INJ IV (13:20)
[2019-01-24] MEDS: ACETAMINOPHEN 650MG/20.3ML CUP NGT (13:20)
[2019-01-24] MEDS: SOD CHLORIDE 0.9% IV (14:19)
[2019-01-24] MEDS: DEXAMETHASONE IV (14:19)
[2019-01-24] MEDS: IMMUNE GLOBUL G/GLY/IGA AVG 46 400 ML IV (17:10)
[2019-01-24] MEDS: ATORVASTATIN 20 MG TAB PO (22:11)
[2019-01-24] MEDS: INSULIN GLARGINE [LANTus] (100 UNITS/ML) SYG SC (22:56)
[2019-01-25] MEDS: INSULIN ASPART [NOVOLOG] 3 ML PEN SC ×8 (02:12→22:33)
[2019-01-25] MEDS: PANTOPRAZOLE (EC) 40 MG TAB PO (06:12)
[2019-01-25] MEDS: METOPROLOL 50 MG TAB PO ×3 (06:12→22:13)
[2019-01-25] MEDS: GABAPENTIN 400 MG CAP PO ×3 (06:12→22:09)
[2019-01-25] MEDS: ASCORBIC ACID 500 MG TAB PO (08:46)
[2019-01-25] MEDS: DULOXETINE 30 MG CAP DR PO (08:46)
[2019-01-25] MEDS: SENNA TAB PO ×2 (08:47→22:09)
[2019-01-25] MEDS: ISOSORBIDE DINITRATE 10 MG TAB PO ×3 (08:47→22:11)
[2019-01-25] MEDS: FERROUS SULFATE (EC) 325 MG TAB PO (08:47)
[2019-01-25] MEDS: MULTIVITAMINS THERAPEUTIC TAB PO (08:47)
[2019-01-25] MEDS: morphine 2 MG INJ IV ×2 (08:52→23:31)
[2019-01-25] MEDS: SOD CHLORIDE 0.9% IV (12:48)
[2019-01-25] MEDS: DEXAMETHASONE IV (12:48)
[2019-01-25] MEDS: NPH, HUMAN INSULIN ISOPHANE 3ML VIAL SC (13:15)
[2019-01-25] MEDS: ATORVASTATIN 20 MG TAB PO (22:09)
[2019-01-25] MEDS: INSULIN GLARGINE [LANTus] (100 UNITS/ML) SYG SC (22:32)
[2019-01-26] MEDS: INSULIN ASPART [NOVOLOG] 3 ML PEN SC ×7 (01:39→22:01)
[2019-01-26] MEDS: LANSOPRAZOLE 30 MG CAP GTB (05:36)
[2019-01-26] MEDS: GABAPENTIN 400 MG CAP PO ×3 (05:36→21:50)
[2019-01-26] MEDS: METOPROLOL 50 MG TAB PO ×3 (05:36→21:51)
[2019-01-26 06:21] LABS: WHITE BLOOD COUNT 7.6 10^3/ul (4.8-10.8)
[2019-01-26 06:21] LABS: ABNORMAL IP MESSAGE 1; HEMATOCRIT 24.3 % (42.0-52.0); HEMOGLOBIN 7.6 g/dl (14.0-18.0); MEAN CORPUSCULAR HEMOGLOBIN 27.2 pg (29.0-33.0); MEAN CORPUSCULAR HGB CONC 31.3 g/dl (32.0-37.0); MEAN CORPUSCULAR VOLUME 87.1 fl (82.0-101.0); PLATELET COUNT 33 10^3/UL (140-415); POSITIVE DIFF @See below; RED BLOOD COUNT 2.79 10^6/ul (4.70-6.10); RED CELL DISTRIBUTION WIDTH 17.2 % (11.5-14.5)
[2019-01-26 06:29] LABS: MEAN PLATELET VOLUME 13.7 fl (7.4-10.4)
[2019-01-26 06:30] LABS: ADD MAN DIFF? YES
[2019-01-26 06:45] LABS: ANION GAP 8 (5-13); BLOOD UREA NITROGEN 92 mg/dl (7-20); CALCIUM 8.3 mg/dl (8.4-10.2); CARBON DIOXIDE 32 mmol/L (21-31); CHLORIDE 97 mmol/L (97-110); CREATININE 0.97 mg/dl (0.61-1.24); Estimated GFR > 60 mL/min (>60); GLUCOSE 245 mg/dl (70-220); POTASSIUM 5.2 mmol/L (3.5-5.1); SODIUM 137 mmol/L (135-144)
[2019-01-26 07:58] LABS: ANISOCYTOSIS 2+ (0-0); BAND NEUTROPHILS #M 0.9 10^3/ul (0.0-0.6); BAND NEUTROPHILS % (M) 13 % (0-4); ERYTHROBLAST% (NRBC) (M) 3 % (0-0); GIANT THROMBO% (M) 1 % (0-0); HYPOCHROMASIA 1+ (0-0); LYMPHOCYTES #M 0.6 10^3/ul (0.8-2.9); LYMPHOCYTES % (M) 8 % (15-51); MICROCYTOSIS 2+ (0-0); MONOCYTE #M 0.1 10^3/ul (0.3-0.9); MONOCYTES % (M) 2 % (0-11); MYELOCYTES % (M) 1 % (0-0); PLATELET ESTIMATE SIG DECREASED; POLYCHROMASIA 2+ (0-0); SEG NEUT #M 5.8 10^3/ul (1.6-7.5); SEGMENTED NEUTROPHILS (M) % 76 % (39-77); SMUDGE%M 15 % (0-0)
[2019-01-26] MEDS: ASCORBIC ACID 500 MG TAB PO (09:08)
[2019-01-26] MEDS: ISOSORBIDE DINITRATE 10 MG TAB PO ×3 (09:09→21:50)
[2019-01-26] MEDS: DULOXETINE 30 MG CAP DR PO (09:09)
[2019-01-26] MEDS: MULTIVITAMINS THERAPEUTIC TAB PO (09:09)
[2019-01-26] MEDS: SENNA TAB PO ×2 (09:09→21:50)
[2019-01-26] MEDS: FERROUS SULFATE (EC) 325 MG TAB PO (09:09)
[2019-01-26] MEDS: NPH, HUMAN INSULIN ISOPHANE 3ML VIAL SC (12:00)
[2019-01-26] MEDS: DEXAMETHASONE IV (13:59)
[2019-01-26] MEDS: SOD CHLORIDE 0.9% IV (13:59)
[2019-01-26] MEDS: NA POLYST SULFON 15 GM/60 ML BTL PO (14:29)
[2019-01-26] MEDS: ATORVASTATIN 20 MG TAB PO (21:50)
[2019-01-26] MEDS: INSULIN GLARGINE [LANTus] (100 UNITS/ML) SYG SC (22:02)
[2019-01-26] MEDS: morphine 2 MG INJ IV (23:10)
[2019-01-27] MEDS: INSULIN ASPART [NOVOLOG] 3 ML PEN SC ×6 (02:29→21:05)
[2019-01-27] MEDS: METOPROLOL 50 MG TAB PO ×3 (05:56→21:45)
[2019-01-27] MEDS: LANSOPRAZOLE 30 MG CAP GTB (05:56)
[2019-01-27] MEDS: GABAPENTIN 400 MG CAP PO ×3 (05:57→21:45)
[2019-01-27] MEDS: LORAZEPAM 2 MG INJ IV ×2 (06:10→14:26)
[2019-01-27 06:23] LABS: ADD MAN DIFF? NO
[2019-01-27 06:31] LABS: ABNORMAL IP MESSAGE 1; BASOPHILS % 0.1 % (0.0-2.0); EOSINOPHILS % 0.3 % (0.0-7.0); HEMATOCRIT 26.4 % (42.0-52.0); HEMOGLOBIN 8.3 g/dl (14.0-18.0); LYMPHOCYTES # 0.9 10^3/ul (0.8-2.9); LYMPHOCYTES % 12.6 % (15.0-51.0); MEAN CORPUSCULAR HEMOGLOBIN 27.4 pg (29.0-33.0); MEAN CORPUSCULAR HGB CONC 31.4 g/dl (32.0-37.0); MEAN CORPUSCULAR VOLUME 87.1 fl (82.0-101.0); MONOCYTE # 0.3 10^3/ul (0.3-0.9); MONOCYTES % 4.5 % (0.0-11.0); NEUTROPHIL # 5.7 10^3/ul (1.6-7.5); NEUTROPHILS % 80.9 % (39.0-77.0); NUCLEATED RED BLOOD CELLS # 0.2 10^3/ul (0.0-0.0); NUCLEATED RED BLOOD CELLS% 3.2 /100WBC (0.0-0.0); PLATELET COUNT 36 10^3/UL (140-415); POSITIVE DIFF @See below; RED BLOOD COUNT 3.03 10^6/ul (4.70-6.10); RED CELL DISTRIBUTION WIDTH 17.2 % (11.5-14.5)
[2019-01-27 06:31] LABS: WHITE BLOOD COUNT 7.1 10^3/ul (4.8-10.8)
[2019-01-27 07:05] LABS: ANION GAP 8 (5-13); BLOOD UREA NITROGEN 100 mg/dl (7-20); CALCIUM 8.5 mg/dl (8.4-10.2); CARBON DIOXIDE 33 mmol/L (21-31); CHLORIDE 95 mmol/L (97-110); CREATININE 1.01 mg/dl (0.61-1.24); Estimated GFR > 60 mL/min (>60); GLUCOSE 222 mg/dl (70-220); POTASSIUM 4.1 mmol/L (3.5-5.1); SODIUM 136 mmol/L (135-144)
[2019-01-27] MEDS ORDERED: predniSONE 20 MG TAB PO (09:00)
[2019-01-27] MEDS: DULOXETINE 30 MG CAP DR PO (09:15)
[2019-01-27] MEDS: SENNA TAB PO ×2 (09:17→20:36)
[2019-01-27] MEDS: ASCORBIC ACID 500 MG TAB PO (09:18)
[2019-01-27] MEDS: predniSONE 20 MG TAB PO (09:18)
[2019-01-27] MEDS: ISOSORBIDE DINITRATE 10 MG TAB PO ×3 (09:18→20:37)
[2019-01-27] MEDS: MULTIVITAMINS THERAPEUTIC TAB PO (09:18)
[2019-01-27] MEDS: FERROUS SULFATE (EC) 325 MG TAB PO (09:19)
[2019-01-27] MEDS: INSULIN GLARGINE [LANTus] (100 UNITS/ML) SYG SC ×3 (09:28→21:05)
[2019-01-27] MEDS: ATORVASTATIN 20 MG TAB PO (20:36)
[2019-01-27] MEDS: morphine 2 MG INJ IV (22:58)
[2019-01-28] MEDS: INSULIN ASPART [NOVOLOG] 3 ML PEN SC ×6 (00:10→21:12)
[2019-01-28] MEDS: LANSOPRAZOLE 30 MG CAP GTB (05:50)
[2019-01-28] MEDS: GABAPENTIN 400 MG CAP PO (05:50)
[2019-01-28] MEDS: METOPROLOL 50 MG TAB PO (05:52)
[2019-01-28] MEDS: FERROUS SULFATE (EC) 325 MG TAB PO (08:45)
[2019-01-28] MEDS ORDERED: GLUCOSE GEL 15 GRAM TUBE PO ×2 (09:00)
[2019-01-28] MEDS ORDERED: ACETAMINOPHEN 325 MG TAB GTB (09:00)
[2019-01-28] MEDS ORDERED: traMADol 50 MG TAB GTB (09:00)
[2019-01-28] MEDS ORDERED: GLUCAGON 1 MG INJ IM (09:00)
[2019-01-28] MEDS ORDERED: ONDANSETRON 4 MG TAB GTB (09:00)
[2019-01-28] MEDS ORDERED: GLUCOSE GEL 15 GRAM TUBE BUCCAL (09:00)
[2019-01-28] MEDS ORDERED: DEXTROSE 50% 50 ML SYRINGE IV ×2 (09:00)
[2019-01-28] MEDS: INSULIN GLARGINE [LANTus] (100 UNITS/ML) SYG SC ×2 (09:02→21:13)
[2019-01-28] MEDS: SENNA TAB GTB ×2 (09:37→20:51)
[2019-01-28] MEDS: predniSONE 20 MG TAB GTB (09:38)
[2019-01-28] MEDS: ASCORBIC ACID 500 MG TAB GTB (09:38)
[2019-01-28] MEDS: DULOXETINE 30 MG CAP DR GTB (09:38)
[2019-01-28] MEDS: ISOSORBIDE DINITRATE 10 MG TAB GTB ×3 (09:38→21:18)
[2019-01-28] MEDS: MULTIVITAMINS 30 ML CUP GTB (09:40)
[2019-01-28] MEDS: NPH, HUMAN INSULIN ISOPHANE 3ML VIAL SC (09:40)
[2019-01-28] MEDS: METOPROLOL 50 MG TAB GTB ×2 (13:20→21:33)
[2019-01-28] MEDS: GABAPENTIN 400 MG CAP GTB ×2 (13:20→21:33)
[2019-01-28] MEDS: SOD CHLORIDE 0.9% 1,000 ML IV (13:46)
[2019-01-28] MEDS: LORAZEPAM 2 MG INJ IV (16:02)
[2019-01-28] MEDS: ATORVASTATIN 20 MG TAB GTB (20:51)
[2019-01-29] MEDS: LORAZEPAM 2 MG INJ IV ×3 (00:50→20:15)
[2019-01-29] MEDS: INSULIN ASPART [NOVOLOG] 3 ML PEN SC ×6 (00:54→20:25)
[2019-01-29] MEDS: LANSOPRAZOLE 30 MG CAP GTB (06:14)
[2019-01-29] MEDS: GABAPENTIN 400 MG CAP GTB ×3 (06:14→21:44)
[2019-01-29] MEDS: METOPROLOL 50 MG TAB GTB ×3 (06:15→21:44)
[2019-01-29] MEDS: morphine 2 MG INJ IV ×2 (06:20→23:03)
[2019-01-29] MEDS: MULTIVITAMINS 30 ML CUP GTB (08:46)
[2019-01-29] MEDS: ASCORBIC ACID 500 MG TAB GTB (08:46)
[2019-01-29] MEDS: predniSONE 20 MG TAB GTB (08:46)
[2019-01-29] MEDS: ISOSORBIDE DINITRATE 10 MG TAB GTB ×3 (08:47→20:14)
[2019-01-29] MEDS: FERROUS SULFATE (EC) 325 MG TAB PO (08:47)
[2019-01-29] MEDS: SENNA TAB GTB ×2 (08:47→20:14)
[2019-01-29] MEDS: DULOXETINE 30 MG CAP DR GTB (08:47)
[2019-01-29] MEDS: INSULIN GLARGINE [LANTus] (100 UNITS/ML) SYG SC ×3 (08:54→20:25)
[2019-01-29] MEDS: NPH, HUMAN INSULIN ISOPHANE 3ML VIAL SC (11:11)
[2019-01-29 14:16] LABS: ADD MAN DIFF? NO
[2019-01-29 14:19] LABS: ABNORMAL IP MESSAGE 1; BASOPHILS % 0.3 % (0.0-2.0); HEMATOCRIT 27.7 % (42.0-52.0); HEMOGLOBIN 8.6 g/dl (14.0-18.0); LYMPHOCYTES # 0.8 10^3/ul (0.8-2.9); LYMPHOCYTES % 8.1 % (15.0-51.0); MEAN CORPUSCULAR HEMOGLOBIN 27.2 pg (29.0-33.0); MEAN CORPUSCULAR VOLUME 87.7 fl (82.0-101.0); MONOCYTE # 0.3 10^3/ul (0.3-0.9); NEUTROPHIL # 8.2 10^3/ul (1.6-7.5); NEUTROPHILS % 86.4 % (39.0-77.0); NUCLEATED RED BLOOD CELLS # 0.2 10^3/ul (0.0-0.0); NUCLEATED RED BLOOD CELLS% 2.4 /100WBC (0.0-0.0); PLATELET COUNT 47 10^3/UL (140-415); POSITIVE DIFF @See below; RED BLOOD COUNT 3.16 10^6/ul (4.70-6.10); RED CELL DISTRIBUTION WIDTH 18.6 % (11.5-14.5)
[2019-01-29 14:19] LABS: WHITE BLOOD COUNT 9.5 10^3/ul (4.8-10.8)
[2019-01-29 17:37] LABS: INR 1.23; PARTIAL THROMBOPLASTIN TIME 27.1 Sec (23.0-35.0); PROTIME 15.6 Sec (11.9-14.9); PT RATIO 1.2
[2019-01-29] MEDS: ATORVASTATIN 20 MG TAB GTB (20:14)
[2019-01-30] MEDS: INSULIN ASPART [NOVOLOG] 3 ML PEN SC ×6 (00:51→21:00)
[2019-01-30] MEDS: LORAZEPAM 2 MG INJ IV (02:58)
[2019-01-30] MEDS: LANSOPRAZOLE 30 MG CAP GTB (05:34)
[2019-01-30] MEDS: METOPROLOL 50 MG TAB GTB ×3 (05:34→21:58)
[2019-01-30] MEDS: GABAPENTIN 400 MG CAP GTB ×3 (05:34→21:57)
[2019-01-30 06:54] LABS: ABNORMAL IP MESSAGE 1; HEMATOCRIT 28.1 % (42.0-52.0); HEMOGLOBIN 8.9 g/dl (14.0-18.0); MEAN CORPUSCULAR HEMOGLOBIN 27.2 pg (29.0-33.0); MEAN CORPUSCULAR HGB CONC 31.7 g/dl (32.0-37.0); MEAN CORPUSCULAR VOLUME 85.9 fl (82.0-101.0); MEAN PLATELET VOLUME 13.3 fl (7.4-10.4); NUCLEATED RED BLOOD CELLS% 4.8 /100WBC (0.0-0.0); PLATELET COUNT 37 10^3/UL (140-415); POSITIVE DIFF @See below; RED BLOOD COUNT 3.27 10^6/ul (4.70-6.10); RED CELL DISTRIBUTION WIDTH 19.6 % (11.5-14.5)
[2019-01-30 06:54] LABS: WHITE BLOOD COUNT 8.1 10^3/ul (4.8-10.8)
[2019-01-30 07:07] LABS: ADD MAN DIFF? YES
[2019-01-30 07:32] LABS: ANION GAP 7 (5-13); BLOOD UREA NITROGEN 96 mg/dl (7-20); CALCIUM 8.5 mg/dl (8.4-10.2); CARBON DIOXIDE 33 mmol/L (21-31); CHLORIDE 94 mmol/L (97-110); CREATININE 0.77 mg/dl (0.61-1.24); Estimated GFR > 60 mL/min (>60); GLUCOSE 96 mg/dl (70-220); MAGNESIUM 3.3 mg/dl (1.7-2.5); PHOSPHORUS 3.6 mg/dl (2.5-4.9); POTASSIUM 4.3 mmol/L (3.5-5.1); SODIUM 134 mmol/L (135-144)
[2019-01-30] MEDS: ASCORBIC ACID 500 MG TAB GTB (08:27)
[2019-01-30] MEDS: DULOXETINE 30 MG CAP DR GTB (08:27)
[2019-01-30] MEDS: SENNA TAB GTB ×2 (08:28→21:58)
[2019-01-30] MEDS: FERROUS SULFATE (EC) 325 MG TAB PO (08:28)
[2019-01-30] MEDS: predniSONE 20 MG TAB GTB (08:28)
[2019-01-30] MEDS: MULTIVITAMINS 30 ML CUP GTB (08:28)
[2019-01-30] MEDS: ISOSORBIDE DINITRATE 10 MG TAB GTB ×3 (08:28→21:57)
[2019-01-30] MEDS: INSULIN GLARGINE [LANTus] (100 UNITS/ML) SYG SC ×2 (08:35→22:03)
[2019-01-30] MEDS: NPH, HUMAN INSULIN ISOPHANE 3ML VIAL SC (08:35)
[2019-01-30 09:28] LABS: ANISOCYTOSIS 3+ (0-0); BAND NEUTROPHILS #M 1.7 10^3/ul (0.0-0.6); BAND NEUTROPHILS % (M) 21 % (0-4); ERYTHROBLAST% (NRBC) (M) 2 % (0-0); GIANT THROMBO% (M) 1 % (0-0); LYMPHOCYTES #M 0.8 10^3/ul (0.8-2.9); LYMPHOCYTES % (M) 11 % (15-51); MICROCYTOSIS 3+ (0-0); MONOCYTES % (M) 1 % (0-11); MYELOCYTES % (M) 1 % (0-0); PLATELET ESTIMATE SIG DECREASED; POIKILOCYTOSIS 1+ (0-0); POLYCHROMASIA 3+ (0-0); SEG NEUT #M 5.6 10^3/ul (1.6-7.5); SEGMENTED NEUTROPHILS (M) % 67 % (39-77); SMUDGE%M 4 % (0-0); TEAR DROP CELLS 1+ (0-0)
[2019-01-30] MEDS: ATORVASTATIN 20 MG TAB GTB (21:57)
[2019-01-31] MEDS: INSULIN ASPART [NOVOLOG] 3 ML PEN SC ×6 (01:00→21:22)
[2019-01-31] MEDS: METOPROLOL 50 MG TAB GTB ×3 (05:26→21:20)
[2019-01-31] MEDS: GABAPENTIN 400 MG CAP GTB ×3 (05:26→21:20)
[2019-01-31] MEDS: LANSOPRAZOLE 30 MG CAP GTB (05:30)
[2019-01-31] MEDS: LORAZEPAM 2 MG INJ IV (05:31)
[2019-01-31 05:59] LABS: WHITE BLOOD COUNT 8.7 10^3/ul (4.8-10.8)
[2019-01-31 05:59] LABS: ABNORMAL IP MESSAGE 1; HEMATOCRIT 25.4 % (42.0-52.0); MEAN CORPUSCULAR HEMOGLOBIN 27.4 pg (29.0-33.0); MEAN CORPUSCULAR HGB CONC 31.5 g/dl (32.0-37.0); PLATELET COUNT 36 10^3/UL (140-415); POSITIVE DIFF @See below; RED BLOOD COUNT 2.92 10^6/ul (4.70-6.10); RED CELL DISTRIBUTION WIDTH 19.5 % (11.5-14.5)
[2019-01-31 06:10] LABS: ADD MAN DIFF? YES
[2019-01-31 06:32] LABS: ANION GAP 5 (5-13); BLOOD UREA NITROGEN 87 mg/dl (7-20); CARBON DIOXIDE 36 mmol/L (21-31); CHLORIDE 92 mmol/L (97-110); CREATININE 0.75 mg/dl (0.61-1.24); Estimated GFR > 60 mL/min (>60); GLUCOSE 123 mg/dl (70-220); POTASSIUM 4.7 mmol/L (3.5-5.1); SODIUM 133 mmol/L (135-144)
[2019-01-31 07:59] LABS: ANISOCYTOSIS 2+ (0-0); BAND NEUTROPHILS #M 1.9 10^3/ul (0.0-0.6); BAND NEUTROPHILS % (M) 22 % (0-4); EOSINOPHILS % (M) 1 % (0-7); ERYTHROBLAST% (NRBC) (M) 2 % (0-0); LYMPHOCYTES #M 1.2 10^3/ul (0.8-2.9); LYMPHOCYTES % (M) 14 % (15-51); MICROCYTOSIS 2+ (0-0); MONOCYTE #M 0.1 10^3/ul (0.3-0.9); MONOCYTES % (M) 2 % (0-11); PLATELET ESTIMATE SIG DECREASED; POIKILOCYTOSIS 1+ (0-0); POLYCHROMASIA 3+ (0-0); SEG NEUT #M 5.5 10^3/ul (1.6-7.5); SEGMENTED NEUTROPHILS (M) % 61 % (39-77); SMUDGE%M 11 % (0-0); SPHEROCYTES 1+ (0-0)
[2019-01-31] MEDS: INSULIN GLARGINE [LANTus] (100 UNITS/ML) SYG SC ×2 (09:27→21:25)
[2019-01-31] MEDS: NPH, HUMAN INSULIN ISOPHANE 3ML VIAL SC (09:27)
[2019-01-31] MEDS: predniSONE 20 MG TAB GTB (09:28)
[2019-01-31] MEDS: SENNA TAB GTB ×2 (09:28→21:19)
[2019-01-31] MEDS: DULOXETINE 30 MG CAP DR GTB (09:28)
[2019-01-31] MEDS: ASCORBIC ACID 500 MG TAB GTB (09:28)
[2019-01-31] MEDS: FERROUS SULFATE (EC) 325 MG TAB PO (09:28)
[2019-01-31] MEDS: MULTIVITAMINS 30 ML CUP GTB (09:28)
[2019-01-31] MEDS: ISOSORBIDE DINITRATE 10 MG TAB GTB ×3 (09:43→21:19)
[2019-01-31] MEDS: morphine 2 MG INJ IV ×2 (14:09→21:19)
[2019-01-31] MEDS: ATORVASTATIN 20 MG TAB GTB (21:19)
[2019-02-01] MEDS: INSULIN ASPART [NOVOLOG] 3 ML PEN SC ×4 (01:45→17:40)
[2019-02-01] MEDS: GABAPENTIN 400 MG CAP GTB ×3 (05:15→21:44)
[2019-02-01] MEDS: LANSOPRAZOLE 30 MG CAP GTB (05:15)
[2019-02-01] MEDS: METOPROLOL 50 MG TAB GTB ×3 (05:16→21:45)
[2019-02-01 06:25] LABS: ADD MAN DIFF? NO
[2019-02-01 07:06] LABS: ANION GAP 5 (5-13); BLOOD UREA NITROGEN 77 mg/dl (7-20); CALCIUM 8.5 mg/dl (8.4-10.2); CARBON DIOXIDE 38 mmol/L (21-31); CHLORIDE 92 mmol/L (97-110); CREATININE 0.72 mg/dl (0.61-1.24); Estimated GFR > 60 mL/min (>60); GLUCOSE 161 mg/dl (70-220); POTASSIUM 4.5 mmol/L (3.5-5.1); SODIUM 135 mmol/L (135-144)
[2019-02-01 08:10] LABS: ABNORMAL IP MESSAGE 1; BASOPHILS % 0.2 % (0.0-2.0); EOSINOPHILS % 0.2 % (0.0-7.0); HEMATOCRIT 24.7 % (42.0-52.0); HEMOGLOBIN 7.5 g/dl (14.0-18.0); LYMPHOCYTES # 0.4 10^3/ul (0.8-2.9); LYMPHOCYTES % 6.3 % (15.0-51.0); MEAN CORPUSCULAR HEMOGLOBIN 26.9 pg (29.0-33.0); MEAN CORPUSCULAR HGB CONC 30.4 g/dl (32.0-37.0); MEAN CORPUSCULAR VOLUME 88.5 fl (82.0-101.0); MEAN PLATELET VOLUME 14.1 fl (7.4-10.4); MONOCYTE # 0.3 10^3/ul (0.3-0.9); MONOCYTES % 4.9 % (0.0-11.0); NEUTROPHIL # 5.4 10^3/ul (1.6-7.5); NEUTROPHILS % 87.4 % (39.0-77.0); NUCLEATED RED BLOOD CELLS # 0.1 10^3/ul (0.0-0.0); NUCLEATED RED BLOOD CELLS% 1.8 /100WBC (0.0-0.0); POSITIVE DIFF @See below; RED BLOOD COUNT 2.79 10^6/ul (4.70-6.10); RED CELL DISTRIBUTION WIDTH 19.3 % (11.5-14.5)
[2019-02-01 08:10] LABS: WHITE BLOOD COUNT 6.2 10^3/ul (4.8-10.8)
[2019-02-01] MEDS: INSULIN GLARGINE [LANTus] (100 UNITS/ML) SYG SC ×2 (08:14→21:50)
[2019-02-01] MEDS: NPH, HUMAN INSULIN ISOPHANE 3ML VIAL SC (08:15)
[2019-02-01 08:20] LABS: PLATELET COUNT 34 10^3/UL (140-415)
[2019-02-01] MEDS: DULOXETINE 30 MG CAP DR GTB (08:58)
[2019-02-01] MEDS: FERROUS SULFATE (EC) 325 MG TAB PO (08:58)
[2019-02-01] MEDS: MULTIVITAMINS 30 ML CUP GTB (08:58)
[2019-02-01] MEDS: ASCORBIC ACID 500 MG TAB GTB (08:58)
[2019-02-01] MEDS: predniSONE 20 MG TAB GTB (08:58)
[2019-02-01] MEDS: SENNA TAB GTB ×2 (08:58→21:44)
[2019-02-01] MEDS: ISOSORBIDE DINITRATE 10 MG TAB GTB ×3 (08:58→21:45)
[2019-02-01] MEDS: ATORVASTATIN 20 MG TAB GTB (21:44)
[2019-02-02] MEDS: INSULIN ASPART [NOVOLOG] 3 ML PEN SC ×4 (00:46→17:49)
[2019-02-02 05:55] LABS: ADD MAN DIFF? NO
[2019-02-02 06:03] LABS: ABNORMAL IP MESSAGE 1; BASOPHILS % 0.2 % (0.0-2.0); EOSINOPHILS % 0.6 % (0.0-7.0); HEMATOCRIT 22.7 % (42.0-52.0); LYMPHOCYTES # 0.6 10^3/ul (0.8-2.9); LYMPHOCYTES % 11.5 % (15.0-51.0); MEAN CORPUSCULAR HEMOGLOBIN 27.1 pg (29.0-33.0); MEAN CORPUSCULAR HGB CONC 30.4 g/dl (32.0-37.0); MEAN PLATELET VOLUME 12.3 fl (7.4-10.4); MONOCYTE # 0.4 10^3/ul (0.3-0.9); MONOCYTES % 7.7 % (0.0-11.0); NEUTROPHIL # 4.1 10^3/ul (1.6-7.5); NEUTROPHILS % 78.9 % (39.0-77.0); NUCLEATED RED BLOOD CELLS% 0.6 /100WBC (0.0-0.0); PLATELET COUNT 33 10^3/UL (140-415); POSITIVE DIFF @See below; RED BLOOD COUNT 2.55 10^6/ul (4.70-6.10)
[2019-02-02 06:03] LABS: WHITE BLOOD COUNT 5.2 10^3/ul (4.8-10.8)
[2019-02-02 06:23] LABS: ANION GAP 4 (5-13); BLOOD UREA NITROGEN 64 mg/dl (7-20); CARBON DIOXIDE 39 mmol/L (21-31); CHLORIDE 92 mmol/L (97-110); CREATININE 0.78 mg/dl (0.61-1.24); Estimated GFR > 60 mL/min (>60); GLUCOSE 156 mg/dl (70-220); POTASSIUM 4.2 mmol/L (3.5-5.1); SODIUM 135 mmol/L (135-144)
[2019-02-02 06:38] LABS: HEMOGLOBIN 6.9 g/dl (14.0-18.0)
[2019-02-02] MEDS: GABAPENTIN 400 MG CAP GTB ×3 (06:38→21:30)
[2019-02-02] MEDS: LANSOPRAZOLE 30 MG CAP GTB (06:38)
[2019-02-02] MEDS: METOPROLOL 50 MG TAB GTB ×3 (06:40→21:31)
[2019-02-02] MEDS: DULOXETINE 30 MG CAP DR GTB (08:58)
[2019-02-02] MEDS: MULTIVITAMINS 30 ML CUP GTB (08:58)
[2019-02-02] MEDS: SENNA TAB GTB ×2 (08:59→21:30)
[2019-02-02] MEDS: ASCORBIC ACID 500 MG TAB GTB (08:59)
[2019-02-02] MEDS: FERROUS SULFATE (EC) 325 MG TAB PO (08:59)
[2019-02-02] MEDS: predniSONE 10 MG TAB GTB (08:59)
[2019-02-02] MEDS: ISOSORBIDE DINITRATE 10 MG TAB GTB ×3 (08:59→21:30)
[2019-02-02] MEDS: NPH, HUMAN INSULIN ISOPHANE 3ML VIAL SC (09:01)
[2019-02-02] MEDS: INSULIN GLARGINE [LANTus] (100 UNITS/ML) SYG SC ×2 (09:01→21:35)
[2019-02-02] MEDS: ACETAMINOPHEN 325 MG TAB GTB (09:06)
[2019-02-02 12:47] LABS: IMMEDIATE SPIN CROSSMATCH 1 1
[2019-02-02] MEDS: ATORVASTATIN 20 MG TAB GTB (21:30)
[2019-02-03] MEDS: INSULIN ASPART [NOVOLOG] 3 ML PEN SC ×4 (00:26→17:23)
[2019-02-03 06:09] LABS: ADD MAN DIFF? NO
[2019-02-03] MEDS: GABAPENTIN 400 MG CAP GTB ×3 (06:19→22:23)
[2019-02-03] MEDS: LANSOPRAZOLE 30 MG CAP GTB (06:19)
[2019-02-03] MEDS: METOPROLOL 50 MG TAB GTB ×3 (06:20→22:23)
[2019-02-03 06:30] LABS: WHITE BLOOD COUNT 5.7 10^3/ul (4.8-10.8)
[2019-02-03 06:30] LABS: ABNORMAL IP MESSAGE 1; BASOPHILS % 0.2 % (0.0-2.0); EOSINOPHILS % 0.5 % (0.0-7.0); HEMATOCRIT 26.1 % (42.0-52.0); HEMOGLOBIN 8.1 g/dl (14.0-18.0); LYMPHOCYTES # 0.6 10^3/ul (0.8-2.9); LYMPHOCYTES % 10.7 % (15.0-51.0); MEAN CORPUSCULAR HEMOGLOBIN 27.1 pg (29.0-33.0); MEAN CORPUSCULAR VOLUME 87.3 fl (82.0-101.0); MONOCYTE # 0.4 10^3/ul (0.3-0.9); NEUTROPHIL # 4.6 10^3/ul (1.6-7.5); NEUTROPHILS % 80.5 % (39.0-77.0); NUCLEATED RED BLOOD CELLS% 0.5 /100WBC (0.0-0.0); PLATELET COUNT 31 10^3/UL (140-415); POSITIVE DIFF @See below; RED BLOOD COUNT 2.99 10^6/ul (4.70-6.10); RED CELL DISTRIBUTION WIDTH 18.3 % (11.5-14.5)
[2019-02-03 06:58] LABS: ANION GAP 6 (5-13); BLOOD UREA NITROGEN 62 mg/dl (7-20); CALCIUM 8.3 mg/dl (8.4-10.2); CARBON DIOXIDE 37 mmol/L (21-31); CHLORIDE 93 mmol/L (97-110); Estimated GFR > 60 mL/min (>60); GLUCOSE 183 mg/dl (70-220); POTASSIUM 3.9 mmol/L (3.5-5.1); SODIUM 136 mmol/L (135-144)
[2019-02-03] MEDS: MULTIVITAMINS 30 ML CUP GTB (08:39)
[2019-02-03] MEDS: predniSONE 10 MG TAB GTB (08:39)
[2019-02-03] MEDS: SENNA TAB GTB ×2 (08:39→22:23)
[2019-02-03] MEDS: DULOXETINE 30 MG CAP DR GTB (08:39)
[2019-02-03] MEDS: ASCORBIC ACID 500 MG TAB GTB (08:39)
[2019-02-03] MEDS: FERROUS SULFATE (EC) 325 MG TAB PO (08:39)
[2019-02-03] MEDS: ISOSORBIDE DINITRATE 10 MG TAB GTB ×3 (08:40→22:23)
[2019-02-03] MEDS: NPH, HUMAN INSULIN ISOPHANE 3ML VIAL SC (08:43)
[2019-02-03] MEDS: INSULIN GLARGINE [LANTus] (100 UNITS/ML) SYG SC ×2 (08:48→22:37)
[2019-02-03] MEDS ORDERED: NPH, HUMAN INSULIN ISOPHANE 3ML VIAL SC (09:00)
[2019-02-03] MEDS: ATORVASTATIN 20 MG TAB GTB (22:23)
[2019-02-03] MEDS: morphine 2 MG INJ IV (23:49)
[2019-02-04] MEDS: INSULIN ASPART [NOVOLOG] 3 ML PEN SC ×5 (00:12→23:52)
[2019-02-04] MEDS: GABAPENTIN 400 MG CAP GTB ×3 (05:43→21:42)
[2019-02-04] MEDS: LANSOPRAZOLE 30 MG CAP GTB (05:43)
[2019-02-04] MEDS: METOPROLOL 50 MG TAB GTB ×2 (05:44→13:48)
[2019-02-04] MEDS ORDERED: ALTEPLASE (CATHFLO) 2 MG INJ CATHETER (06:30)
[2019-02-04] MEDS: predniSONE 10 MG TAB GTB (08:33)
[2019-02-04] MEDS: ASCORBIC ACID 500 MG TAB GTB (08:33)
[2019-02-04] MEDS: MULTIVITAMINS 30 ML CUP GTB (08:33)
[2019-02-04] MEDS: DULOXETINE 30 MG CAP DR GTB (08:33)
[2019-02-04] MEDS: FERROUS SULFATE (EC) 325 MG TAB PO (08:34)
[2019-02-04] MEDS: ISOSORBIDE DINITRATE 10 MG TAB GTB ×3 (08:34→21:00)
[2019-02-04] MEDS: SENNA TAB GTB ×2 (08:34→21:41)
[2019-02-04] MEDS: INSULIN GLARGINE [LANTus] (100 UNITS/ML) SYG SC ×2 (08:40→22:00)
[2019-02-04] MEDS: NPH, HUMAN INSULIN ISOPHANE 3ML VIAL SC (08:41)
[2019-02-04] MEDS ORDERED: METOPROLOL 5 MG INJ IV (15:30)
[2019-02-04] MEDS: ATORVASTATIN 20 MG TAB GTB (21:41)
[2019-02-04] MEDS: METOPROLOL 25 MG TAB GTB (21:42)
[2019-02-05 05:09] LABS: ADD MAN DIFF? NO
[2019-02-05 05:11] LABS: ABNORMAL IP MESSAGE 1; BASOPHILS % 0.2 % (0.0-2.0); EOSINOPHILS % 0.3 % (0.0-7.0); HEMATOCRIT 26.9 % (42.0-52.0); HEMOGLOBIN 8.1 g/dl (14.0-18.0); LYMPHOCYTES # 0.9 10^3/ul (0.8-2.9); LYMPHOCYTES % 15.3 % (15.0-51.0); MEAN CORPUSCULAR HEMOGLOBIN 26.2 pg (29.0-33.0); MEAN CORPUSCULAR HGB CONC 30.1 g/dl (32.0-37.0); MEAN CORPUSCULAR VOLUME 87.1 fl (82.0-101.0); MEAN PLATELET VOLUME 11.7 fl (7.4-10.4); MONOCYTE # 0.4 10^3/ul (0.3-0.9); NEUTROPHIL # 4.8 10^3/ul (1.6-7.5); NEUTROPHILS % 77.5 % (39.0-77.0); PLATELET COUNT 54 10^3/UL (140-415); POSITIVE DIFF @See below; RED BLOOD COUNT 3.09 10^6/ul (4.70-6.10); RED CELL DISTRIBUTION WIDTH 18.5 % (11.5-14.5)
[2019-02-05 05:11] LABS: WHITE BLOOD COUNT 6.1 10^3/ul (4.8-10.8)
[2019-02-05] MEDS: METOPROLOL 25 MG TAB GTB ×2 (05:54→21:00)
[2019-02-05] MEDS: GABAPENTIN 400 MG CAP GTB ×3 (05:55→21:24)
[2019-02-05] MEDS: LANSOPRAZOLE 30 MG CAP GTB (05:55)
[2019-02-05 06:25] LABS: ANION GAP 6 (5-13); BLOOD UREA NITROGEN 68 mg/dl (7-20); CALCIUM 7.6 mg/dl (8.4-10.2); CARBON DIOXIDE 35 mmol/L (21-31); CHLORIDE 95 mmol/L (97-110); CREATININE 0.98 mg/dl (0.61-1.24); Estimated GFR > 60 mL/min (>60); GLUCOSE 148 mg/dl (70-220); POTASSIUM 3.6 mmol/L (3.5-5.1); SODIUM 136 mmol/L (135-144)
[2019-02-05] MEDS: INSULIN ASPART [NOVOLOG] 3 ML PEN SC ×4 (06:35→23:08)
[2019-02-05] MEDS: DULOXETINE 30 MG CAP DR GTB (09:38)
[2019-02-05] MEDS: MULTIVITAMINS 30 ML CUP GTB (09:38)
[2019-02-05] MEDS: ASCORBIC ACID 500 MG TAB GTB (09:39)
[2019-02-05] MEDS: SENNA TAB GTB ×2 (09:39→21:14)
[2019-02-05] MEDS: FERROUS SULFATE (EC) 325 MG TAB PO (09:39)
[2019-02-05] MEDS: ISOSORBIDE DINITRATE 10 MG TAB GTB ×3 (09:39→21:00)
[2019-02-05] MEDS: INSULIN GLARGINE [LANTus] (100 UNITS/ML) SYG SC ×2 (10:05→21:19)
[2019-02-05] MEDS: NPH, HUMAN INSULIN ISOPHANE 3ML VIAL SC (10:06)
[2019-02-05] MEDS: ACETAMINOPHEN 325 MG TAB GTB (15:33)
[2019-02-05] MEDS ORDERED: VANCOMYCIN IV PER PHARMACY XX (17:30)
[2019-02-05 18:52] LABS: ADD UMIC YES; UR ASCORBIC ACID 40 mg/dL (NEGATIVE); UR BACTERIA FEW /HPF (NONE SEEN); UR BILIRUBIN (Dip) NEGATIVE (NEGATIVE); UR BLOOD (Dip) NEGATIVE (NEGATIVE); UR CLARITY CLOUDY (CLEAR); UR COLOR AMBER (YELLOW); UR GLUCOSE (Dip) NEGATIVE (NEGATIVE); UR KETONES (Dip) NEGATIVE (NEGATIVE); UR LEUKOCYTE ESTERASE (Dip) 3+ Leu/ul (NEGATIVE); UR NITRITE (Dip) NEGATIVE (NEGATIVE); UR NONSQUAMOUS EPITHELIAL CELL 1 /HPF (NONE SEEN); UR RBC 38 /HPF (0-5); UR SPECIFIC GRAVITY (Dip) 1.013 (1.003-1.030); UR TOTAL PROTEIN (Dip) 2+ mg/dl (NEGATIVE); UR UROBILINOGEN (Dip) NEGATIVE (NEGATIVE); UR WBC > 182 /HPF (0-5)
[2019-02-05] MEDS: VANCOMYCIN HCL 1.75 GM in SOD CHLORIDE 0.9% 500 ML IVPB (21:12)
[2019-02-05] MEDS: ATORVASTATIN 20 MG TAB GTB (21:14)
[2019-02-05] MEDS: morphine 2 MG INJ IV (22:09)
[2019-02-06] MEDS: MEROPENEM 1 GM/50ML(PMX) 50 ML IVPB ×3 (01:30→20:57)
[2019-02-06] MEDS: ACETAMINOPHEN 325 MG TAB GTB ×2 (01:31→20:57)
[2019-02-06] MEDS: morphine 2 MG INJ IV (04:15)
[2019-02-06] MEDS: LANSOPRAZOLE 30 MG CAP GTB (04:15)
[2019-02-06] MEDS: GABAPENTIN 400 MG CAP GTB ×3 (04:15→20:57)
[2019-02-06] MEDS: INSULIN ASPART [NOVOLOG] 3 ML PEN SC ×3 (06:00→17:33)
[2019-02-06] MEDS ORDERED: NPH, HUMAN INSULIN ISOPHANE 3ML VIAL SC (08:00)
[2019-02-06] MEDS: METOPROLOL 25 MG TAB GTB ×2 (09:00→20:56)
[2019-02-06] MEDS: FERROUS SULFATE (EC) 325 MG TAB PO (09:32)
[2019-02-06] MEDS: predniSONE 20 MG TAB PO (09:32)
[2019-02-06] MEDS: DULOXETINE 30 MG CAP DR GTB (09:32)
[2019-02-06] MEDS: ASCORBIC ACID 500 MG TAB GTB (09:32)
[2019-02-06] MEDS: MULTIVITAMINS 30 ML CUP GTB (09:32)
[2019-02-06] MEDS: SENNA TAB GTB ×2 (09:33→20:57)
[2019-02-06] MEDS: ISOSORBIDE DINITRATE 10 MG TAB GTB ×3 (09:33→20:56)
[2019-02-06] MEDS: NPH, HUMAN INSULIN ISOPHANE 3ML VIAL SC (09:41)
[2019-02-06] MEDS: INSULIN GLARGINE [LANTus] (100 UNITS/ML) SYG SC ×2 (09:42→21:17)
[2019-02-06] MEDS: FUROSEMIDE 20 MG INJ IV (17:38)
[2019-02-06] MEDS: ATORVASTATIN 20 MG TAB GTB (20:57)
[2019-02-06] MEDS ORDERED: VANCOMYCIN HCL 1.25 GM in SOD CHLORIDE 0.9% 250 ML IVPB (22:00)
[2019-02-07] MEDS: morphine 2 MG INJ IV (04:26)
[2019-02-07] MEDS: LANSOPRAZOLE 30 MG CAP GTB (04:26)
[2019-02-07] MEDS: GABAPENTIN 400 MG CAP GTB ×3 (04:26→21:35)
[2019-02-07] MEDS: FUROSEMIDE 20 MG INJ IV ×2 (04:27→17:40)
[2019-02-07 05:31] LABS: ADD MAN DIFF? NO
[2019-02-07 05:34] LABS: ABNORMAL IP MESSAGE 1; BASOPHILS % 0.3 % (0.0-2.0); HEMATOCRIT 26.7 % (42.0-52.0); HEMOGLOBIN 8.1 g/dl (14.0-18.0); LYMPHOCYTES # 0.8 10^3/ul (0.8-2.9); LYMPHOCYTES % 11.4 % (15.0-51.0); MEAN CORPUSCULAR HEMOGLOBIN 26.7 pg (29.0-33.0); MEAN CORPUSCULAR HGB CONC 30.3 g/dl (32.0-37.0); MEAN CORPUSCULAR VOLUME 88.1 fl (82.0-101.0); MEAN PLATELET VOLUME 12.8 fl (7.4-10.4); MONOCYTE # 0.3 10^3/ul (0.3-0.9); MONOCYTES % 4.6 % (0.0-11.0); NEUTROPHIL # 5.4 10^3/ul (1.6-7.5); NEUTROPHILS % 82.8 % (39.0-77.0); NUCLEATED RED BLOOD CELLS% 0.3 /100WBC (0.0-0.0); PLATELET COUNT 74 10^3/UL (140-415); POSITIVE DIFF @See below; RED BLOOD COUNT 3.03 10^6/ul (4.70-6.10); RED CELL DISTRIBUTION WIDTH 17.9 % (11.5-14.5)
[2019-02-07 05:34] LABS: WHITE BLOOD COUNT 6.6 10^3/ul (4.8-10.8)
[2019-02-07] MEDS: INSULIN ASPART [NOVOLOG] 3 ML PEN SC ×4 (05:43→17:38)
[2019-02-07 05:57] LABS: ANION GAP 5 (5-13); BLOOD UREA NITROGEN 83 mg/dl (7-20); CALCIUM 7.5 mg/dl (8.4-10.2); CARBON DIOXIDE 34 mmol/L (21-31); CHLORIDE 95 mmol/L (97-110); CREATININE 0.92 mg/dl (0.61-1.24); Estimated GFR > 60 mL/min (>60); GLUCOSE 296 mg/dl (70-220); POTASSIUM 4.4 mmol/L (3.5-5.1); SODIUM 134 mmol/L (135-144)
[2019-02-07] MEDS: MULTIVITAMINS 30 ML CUP GTB (09:02)
[2019-02-07] MEDS: MEROPENEM 1 GM/50ML(PMX) 50 ML IVPB ×2 (09:04→20:08)
[2019-02-07] MEDS: FERROUS SULFATE (EC) 325 MG TAB PO (09:05)
[2019-02-07] MEDS: ASCORBIC ACID 500 MG TAB GTB (09:05)
[2019-02-07] MEDS: SENNA TAB GTB ×2 (09:05→20:08)
[2019-02-07] MEDS: DULOXETINE 30 MG CAP DR GTB (09:05)
[2019-02-07] MEDS: predniSONE 20 MG TAB PO (09:06)
[2019-02-07] MEDS: METOPROLOL 25 MG TAB GTB ×2 (09:06→20:15)
[2019-02-07] MEDS: ISOSORBIDE DINITRATE 10 MG TAB GTB ×3 (09:06→20:08)
[2019-02-07] MEDS: NPH, HUMAN INSULIN ISOPHANE 3ML VIAL SC (09:08)
[2019-02-07] MEDS: INSULIN GLARGINE [LANTus] (100 UNITS/ML) SYG SC ×2 (10:10→20:21)
[2019-02-07] MEDS: ATORVASTATIN 20 MG TAB GTB (20:09)
[2019-02-08] MEDS ORDERED: NPH, HUMAN INSULIN ISOPHANE 3ML VIAL SC (09:00)
[2019-02-08] MEDS ORDERED: VANCOMYCIN 750 MG (PMX) 250 ML IVPB (21:00)
== END 2019-02-07 22:42 | disposition short-term general hospital (02) | DRG 813 ==
LOC: 6WM 18:40
PROC: 5A1955Z Respiratory Ventilation, Greater than 96 Consecutive Hours (ICD-10-PCS; principal; 2019-01-20)
PROC: 30233N1 Transfusion of Nonautologous Red Blood Cells into Peripheral Vein, Percutaneous Approach (ICD-10-PCS; 2019-02-02)
DX: D69.3 Immune thrombocytopenic purpura (principal); E87.3 Alkalosis; I48.92 Unspecified atrial flutter; Z99.11 Dependence on respirator [ventilator] status; J90 Pleural effusion, not elsewhere classified; Z68.42 Body mass index [BMI] 45.0-49.9, adult; I42.9 Cardiomyopathy, unspecified; J96.10 Chronic respiratory failure, unspecified whether with hypoxia or hypercapnia; I25.10 Atherosclerotic heart disease of native coronary artery without angina pectoris; R13.10 Dysphagia, unspecified; I48.0 Paroxysmal atrial fibrillation; E78.00 Pure hypercholesterolemia, unspecified; I10 Essential (primary) hypertension; Z95.0 Presence of cardiac pacemaker; E78.5 Hyperlipidemia, unspecified; D64.9 Anemia, unspecified; E87.5 Hyperkalemia; E66.01 Morbid (severe) obesity due to excess calories; F32.9 Major depressive disorder, single episode, unspecified; Z89.512 Acquired absence of left leg below knee; Z89.511 Acquired absence of right leg below knee; Z95.1 Presence of aortocoronary bypass graft; Z93.0 Tracheostomy status; Z93.1 Gastrostomy status; Z95.3 Presence of xenogenic heart valve; Z93.3 Colostomy status; Z79.4 Long term (current) use of insulin; E11.65 Type 2 diabetes mellitus with hyperglycemia; R50.9 Fever, unspecified
CPT/HCPCS: 36430; 36600; 70450; 71045; 80048; 80053; 81001; 82803; 82962; 83036; 83735; 84100; 85025; 85610; 85730; 86850; 86900; 86901; 86920; 87040-91; 87075; 92526; 92610; 93970; 94002; 94003

== ENCOUNTER 2019-05-01 18:09 | Inpatient (IN) | payer MEDICARE, MEDICAID ==
[2019-05-01 19:09] LABS: ADD MAN DIFF? NO
[2019-05-01 19:18] LABS: ABNORMAL IP MESSAGE 1; BASOPHILS % 0.1 % (0.0-2.0); EOSINOPHILS % 0.2 % (0.0-7.0); HEMATOCRIT 24.6 % (42.0-52.0); HEMOGLOBIN 7.5 g/dl (14.0-18.0); LYMPHOCYTES # 0.5 10^3/ul (0.8-2.9); MEAN CORPUSCULAR HEMOGLOBIN 25.5 pg (29.0-33.0); MEAN CORPUSCULAR HGB CONC 30.5 g/dl (32.0-37.0); MEAN CORPUSCULAR VOLUME 83.7 fl (82.0-101.0); MEAN PLATELET VOLUME 10.9 fl (7.4-10.4); MONOCYTE # 0.7 10^3/ul (0.3-0.9); MONOCYTES % 5.2 % (0.0-11.0); NEUTROPHILS % 89.7 % (39.0-77.0); PLATELET COUNT 186 10^3/UL (140-415); POSITIVE DIFF @See below; RED BLOOD COUNT 2.94 10^6/ul (4.70-6.10); RED CELL DISTRIBUTION WIDTH 17.9 % (11.5-14.5)
[2019-05-01 19:18] LABS: WHITE BLOOD COUNT 13.4 10^3/ul (4.8-10.8)
[2019-05-01 19:31] LABS: ADD UMIC YES; UR ASCORBIC ACID 40 mg/dL (NEGATIVE); UR BACTERIA MODERATE /HPF (NONE SEEN); UR BILIRUBIN (Dip) NEGATIVE (NEGATIVE); UR BLOOD (Dip) 1+ mg/dL (NEGATIVE); UR CLARITY TURBID (CLEAR); UR COLOR AMBER (YELLOW); UR GLUCOSE (Dip) NEGATIVE (NEGATIVE); UR KETONES (Dip) NEGATIVE (NEGATIVE); UR LEUKOCYTE ESTERASE (Dip) 2+ Leu/ul (NEGATIVE); UR MUCUS FEW /HPF (NONE SEEN); UR NITRITE (Dip) NEGATIVE (NEGATIVE); UR NONSQUAMOUS EPITHELIAL CELL 2 /HPF (NONE SEEN); UR RBC 17 /HPF (0-5); UR SQUAMOUS EPITHELIAL CELL MODERATE /HPF (FEW); UR TOTAL PROTEIN (Dip) 2+ mg/dl (NEGATIVE); UR UROBILINOGEN (Dip) NEGATIVE (NEGATIVE); UR WBC > 182 /HPF (0-5)
[2019-05-01 19:38] LABS: ANION GAP 12 (5-13); CALCIUM 7.8 mg/dl (8.4-10.2); CARBON DIOXIDE 33 mmol/L (21-31); CHLORIDE 76 mmol/L (97-110); CREATININE 3.91 mg/dl (0.61-1.24); Estimated GFR 15 mL/min (>60); GLUCOSE 189 mg/dl (70-220); POTASSIUM 3.6 mmol/L (3.5-5.1); SODIUM 121 mmol/L (135-144)
[2019-05-01 19:59] LABS: BLOOD UREA NITROGEN 135 mg/dl (7-20)
[2019-05-01] MEDS ORDERED: ONDANSETRON 4 MG INJ IV ×2 (20:00→20:30)
[2019-05-01] MEDS ORDERED: ACETAMINOPHEN 325 MG TAB PO ×2 (20:00→20:30)
[2019-05-01] MEDS ORDERED: traMADol 50 MG TAB PO (20:30)
[2019-05-01] MEDS ORDERED: morphine 2 MG INJ IV (20:30)
[2019-05-01] MEDS ORDERED: NACL 0.9% 3 ML SYG IV (20:30)
[2019-05-01] MEDS ORDERED: ONDANSETRON 4 MG TAB PO (20:30)
[2019-05-01] MEDS ORDERED: ALPRAZOLAM 0.25 MG TAB PO (20:30)
[2019-05-01] MEDS ORDERED: NITROGLYCERIN (SL) 0.4 MG TAB SL (20:30)
[2019-05-01] MEDS: CEFEPIME 2GM/50 ML (PMX) 50 ML IVPB (20:40)
[2019-05-01] MEDS ORDERED: FAMOTIDINE 20 MG INJ IV (21:00)
[2019-05-02] MEDS: ISOSORBIDE DINITRATE 10 MG TAB PO ×4 (04:34→21:00)
[2019-05-02] MEDS: GABAPENTIN 400 MG CAP PO ×4 (04:35→21:24)
[2019-05-02] MEDS: ATORVASTATIN 20 MG TAB PO ×2 (04:35→21:23)
[2019-05-02] MEDS: METOPROLOL 50 MG TAB PO ×4 (04:36→22:00)
[2019-05-02] MEDS: SENNA TAB PO ×3 (04:36→21:23)
[2019-05-02 06:52] LABS: ADD MAN DIFF? NO
[2019-05-02 06:54] LABS: WHITE BLOOD COUNT 12.1 10^3/ul (4.8-10.8)
[2019-05-02 06:54] LABS: BASOPHILS % 0.2 % (0.0-2.0); EOSINOPHILS # 0.1 10^3/ul (0.0-0.5); EOSINOPHILS % 0.8 % (0.0-7.0); HEMOGLOBIN 7.7 g/dl (14.0-18.0); LYMPHOCYTES # 0.7 10^3/ul (0.8-2.9); LYMPHOCYTES % 5.8 % (15.0-51.0); MEAN CORPUSCULAR HEMOGLOBIN 25.8 pg (29.0-33.0); MEAN CORPUSCULAR HGB CONC 30.8 g/dl (32.0-37.0); MEAN CORPUSCULAR VOLUME 83.9 fl (82.0-101.0); MEAN PLATELET VOLUME 11.5 fl (7.4-10.4); MONOCYTES % 7.8 % (0.0-11.0); NEUTROPHIL # 10.2 10^3/ul (1.6-7.5); NEUTROPHILS % 84.5 % (39.0-77.0); NUCLEATED RED BLOOD CELLS% 0.2 /100WBC (0.0-0.0); PLATELET COUNT 185 10^3/UL (140-415); POSITIVE DIFF @See below; RED BLOOD COUNT 2.98 10^6/ul (4.70-6.10); RED CELL DISTRIBUTION WIDTH 17.7 % (11.5-14.5)
[2019-05-02 07:12] LABS: HEMOGLOBIN A1C 6.5 % (0-5.9)
[2019-05-02 07:39] LABS: ALANINE AMINOTRANSFERASE 50 IU/L (13-69); ALBUMIN 2.8 g/dl (3.3-4.9); ALBUMIN/GLOBULIN RATIO 0.52; ALKALINE PHOSPHATASE 148 IU/L (42-121); ANION GAP 12 (5-13); ASPARTATE AMINO TRANSFERASE 97 IU/L (15-46); BILIRUBIN,INDIRECT 0.3 mg/dl (0-1.1); BILIRUBIN,TOTAL 0.3 mg/dl (0.2-1.3); CALCIUM 7.5 mg/dl (8.4-10.2); CARBON DIOXIDE 29 mmol/L (21-31); CHLORIDE 80 mmol/L (97-110); Estimated GFR 17 mL/min (>60); GLUCOSE 114 mg/dl (70-220); POTASSIUM 3.7 mmol/L (3.5-5.1); SODIUM 121 mmol/L (135-144); TOTAL PROTEIN 8.1 g/dl (6.1-8.1)
[2019-05-02 08:06] LABS: BLOOD UREA NITROGEN 143 mg/dl (7-20)
[2019-05-02] MEDS: FERROUS SULFATE (EC) 325 MG TAB PO (09:06)
[2019-05-02] MEDS: DULOXETINE 30 MG CAP DR PO (09:06)
[2019-05-02] MEDS: ASCORBIC ACID 500 MG TAB PO (09:07)
[2019-05-02] MEDS: PANTOPRAZOLE (EC) 40 MG TAB PO (09:07)
[2019-05-02] MEDS: MULTIVITAMINS THERAPEUTIC TAB PO (09:08)
[2019-05-02] MEDS: ENOXAPARIN 30 MG/0.3 ML SYG SC (10:10)
[2019-05-02] MEDS: ALBUMIN HUMAN 25% 100 ML IV ×2 (11:11→17:56)
[2019-05-02] MEDS ORDERED: GLUCOSE GEL 15 GRAM TUBE PO ×2 (12:00)
[2019-05-02] MEDS ORDERED: DEXTROSE 50% 50 ML SYRINGE IV ×2 (12:00)
[2019-05-02] MEDS ORDERED: GLUCOSE GEL 15 GRAM TUBE BUCCAL (12:00)
[2019-05-02] MEDS ORDERED: GLUCAGON 1 MG INJ IM (12:00)
[2019-05-02] MEDS: INSULIN ASPART [NOVOLOG] 3 ML PEN SC ×3 (13:00→21:43)
[2019-05-02 16:48] LABS: SODIUM,URINE RANDOM < 13 mmol/L (30-90)
[2019-05-02] MEDS ORDERED: SOD CHLORIDE 0.9% IVPB (19:30)
[2019-05-02] MEDS ORDERED: CEFEPIME HCL IVPB (19:30)
[2019-05-02] MEDS: CEFEPIME HCL 0.5 GM in SOD CHLORIDE 0.9% 50 ML IVPB (19:30)
[2019-05-02] MEDS: BALSAM PERU/CASTOR OIL 60 GM TUBE TOP (21:23)
[2019-05-02] MEDS: NYSTATIN 15 GM CR TOP (21:24)
[2019-05-03] MEDS: ACETAMINOPHEN 325 MG TAB PO ×2 (01:26→09:58)
[2019-05-03] MEDS: INSULIN ASPART [NOVOLOG] 3 ML PEN SC ×6 (01:36→21:32)
[2019-05-03] MEDS: ALBUMIN HUMAN 25% 100 ML IV ×3 (02:36→18:13)
[2019-05-03] MEDS: GABAPENTIN 400 MG CAP PO ×3 (05:41→22:13)
[2019-05-03] MEDS: PANTOPRAZOLE (EC) 40 MG TAB PO (06:47)
[2019-05-03 06:50] LABS: ADD MAN DIFF? NO
[2019-05-03 06:56] LABS: BASOPHILS % 0.3 % (0.0-2.0); EOSINOPHILS # 0.1 10^3/ul (0.0-0.5); EOSINOPHILS % 0.8 % (0.0-7.0); HEMATOCRIT 24.6 % (42.0-52.0); HEMOGLOBIN 7.6 g/dl (14.0-18.0); LYMPHOCYTES # 0.9 10^3/ul (0.8-2.9); LYMPHOCYTES % 5.5 % (15.0-51.0); MEAN CORPUSCULAR HEMOGLOBIN 25.9 pg (29.0-33.0); MEAN CORPUSCULAR HGB CONC 30.9 g/dl (32.0-37.0); MEAN CORPUSCULAR VOLUME 83.7 fl (82.0-101.0); MEAN PLATELET VOLUME 11.2 fl (7.4-10.4); MONOCYTES % 6.3 % (0.0-11.0); NEUTROPHIL # 13.5 10^3/ul (1.6-7.5); NEUTROPHILS % 84.7 % (39.0-77.0); PLATELET COUNT 163 10^3/UL (140-415); RED BLOOD COUNT 2.94 10^6/ul (4.70-6.10); RED CELL DISTRIBUTION WIDTH 18.1 % (11.5-14.5)
[2019-05-03 07:18] LABS: CREATINE KINASE 230 IU/L (23-200)
[2019-05-03 07:18] LABS: URIC ACID 16.1 mg/dl (3.1-7.9)
[2019-05-03 08:20] LABS: ANION GAP 19 (5-13); CALCIUM 8.1 mg/dl (8.4-10.2); CARBON DIOXIDE 25 mmol/L (21-31); CHLORIDE 78 mmol/L (97-110); CREATININE 4.49 mg/dl (0.61-1.24); Estimated GFR 13 mL/min (>60); GLUCOSE 276 mg/dl (70-220); POTASSIUM 3.4 mmol/L (3.5-5.1); SODIUM 122 mmol/L (135-144)
[2019-05-03 08:47] LABS: BLOOD UREA NITROGEN 143 mg/dl (7-20)
[2019-05-03] MEDS: METOPROLOL 50 MG TAB PO ×2 (09:00→21:00)
[2019-05-03] MEDS: DULOXETINE 30 MG CAP DR PO (09:57)
[2019-05-03] MEDS: SENNA TAB PO ×2 (09:58→21:20)
[2019-05-03] MEDS: FERROUS SULFATE (EC) 325 MG TAB PO (09:58)
[2019-05-03] MEDS: MULTIVIT/CA CARB/B CMPLX/FA TAB GTB (09:58)
[2019-05-03] MEDS: ISOSORBIDE DINITRATE 10 MG TAB PO ×3 (09:59→21:00)
[2019-05-03] MEDS: BALSAM PERU/CASTOR OIL 60 GM TUBE TOP ×2 (09:59→21:22)
[2019-05-03] MEDS: NYSTATIN 15 GM CR TOP ×2 (10:00→21:22)
[2019-05-03] MEDS: ENOXAPARIN 30 MG/0.3 ML SYG SC (10:03)
[2019-05-03] MEDS ORDERED: CEFEPIME HCL 0.5 GM in SOD CHLORIDE 0.9% 50 ML IVPB (11:00)
[2019-05-03] MEDS: CEFEPIME HCL 0.5 GM in SOD CHLORIDE 0.9% 50 ML IVPB (21:16)
[2019-05-03] MEDS: ATORVASTATIN 20 MG TAB PO (21:20)
[2019-05-03] MEDS: INSULIN GLARGINE [LANTus] (100 UNITS/ML) SYG SC (21:32)
[2019-05-04] MEDS: INSULIN ASPART [NOVOLOG] 3 ML PEN SC ×7 (01:09→21:09)
[2019-05-04] MEDS: ACCU-CHEK XX ×2 (02:00→05:27)
[2019-05-04] MEDS: ALBUMIN HUMAN 25% 100 ML IV (02:27)
[2019-05-04] MEDS: PANTOPRAZOLE (EC) 40 MG TAB PO (06:40)
[2019-05-04] MEDS: GABAPENTIN 400 MG CAP PO ×3 (06:40→21:05)
[2019-05-04 07:25] LABS: ADD MAN DIFF? NO
[2019-05-04 07:35] LABS: ABNORMAL IP MESSAGE 1; BASOPHILS % 0.2 % (0.0-2.0); EOSINOPHILS # 0.2 10^3/ul (0.0-0.5); EOSINOPHILS % 1.6 % (0.0-7.0); HEMATOCRIT 20.8 % (42.0-52.0); LYMPHOCYTES # 0.8 10^3/ul (0.8-2.9); LYMPHOCYTES % 6.3 % (15.0-51.0); MEAN CORPUSCULAR HEMOGLOBIN 26.4 pg (29.0-33.0); MEAN CORPUSCULAR HGB CONC 31.7 g/dl (32.0-37.0); MEAN CORPUSCULAR VOLUME 83.2 fl (82.0-101.0); MEAN PLATELET VOLUME 11.4 fl (7.4-10.4); MONOCYTE # 0.9 10^3/ul (0.3-0.9); NEUTROPHIL # 10.1 10^3/ul (1.6-7.5); NEUTROPHILS % 83.2 % (39.0-77.0); PLATELET COUNT 153 10^3/UL (140-415); POSITIVE DIFF @See below; RED CELL DISTRIBUTION WIDTH 17.9 % (11.5-14.5)
[2019-05-04 07:35] LABS: WHITE BLOOD COUNT 12.1 10^3/ul (4.8-10.8)
[2019-05-04 07:39] LABS: HEMOGLOBIN 6.6 g/dl (14.0-18.0)
[2019-05-04 07:40] LABS: PATH REVIEW? YES
[2019-05-04 07:53] LABS: INR 1.45; PROTIME 17.7 Sec (11.9-14.9); PT RATIO 1.4
[2019-05-04 07:54] LABS: PARTIAL THROMBOPLASTIN TIME 39.5 Sec (23.0-35.0)
[2019-05-04 08:04] LABS: MAGNESIUM 3.7 mg/dl (1.7-2.5)
[2019-05-04 08:05] LABS: ALANINE AMINOTRANSFERASE 83 IU/L (13-69); ALBUMIN 3.3 g/dl (3.3-4.9); ALBUMIN/GLOBULIN RATIO 0.89; ALKALINE PHOSPHATASE 198 IU/L (42-121); ANION GAP 17 (5-13); ASPARTATE AMINO TRANSFERASE 104 IU/L (15-46); BILIRUBIN,INDIRECT 0.3 mg/dl (0-1.1); BILIRUBIN,TOTAL 0.3 mg/dl (0.2-1.3); CALCIUM 8.2 mg/dl (8.4-10.2); CARBON DIOXIDE 26 mmol/L (21-31); CHLORIDE 78 mmol/L (97-110); CREATININE 4.75 mg/dl (0.61-1.24); Estimated GFR 12 mL/min (>60); GLUCOSE 245 mg/dl (70-220); POTASSIUM 3.1 mmol/L (3.5-5.1); SODIUM 121 mmol/L (135-144)
[2019-05-04 08:16] LABS: BLOOD UREA NITROGEN 150 mg/dl (7-20)
[2019-05-04] MEDS: ISOSORBIDE DINITRATE 10 MG TAB PO ×3 (09:00→20:48)
[2019-05-04] MEDS: METOPROLOL 50 MG TAB PO ×2 (09:00→20:49)
[2019-05-04] MEDS: FERROUS SULFATE (EC) 325 MG TAB PO (09:25)
[2019-05-04] MEDS: MULTIVIT/CA CARB/B CMPLX/FA TAB GTB (09:25)
[2019-05-04] MEDS: ACETAMINOPHEN 325 MG TAB PO (09:25)
[2019-05-04] MEDS: DULOXETINE 30 MG CAP DR PO (09:25)
[2019-05-04] MEDS: SENNA TAB PO ×2 (09:26→21:05)
[2019-05-04 09:27] LABS: ANISOCYTOSIS 1+ (0-0); BAND NEUTROPHILS #M 0.4 10^3/ul (0.0-0.6); BAND NEUTROPHILS % (M) 4 % (0-4); EOSINOPHILS % (M) 1 % (0-7); GIANT THROMBO% (M) 1 % (0-0); LYMPHOCYTES #M 0.3 10^3/ul (0.8-2.9); LYMPHOCYTES % (M) 3 % (15-51); MICROCYTOSIS 1+ (0-0); MONOCYTE #M 0.3 10^3/ul (0.3-0.9); MONOCYTES % (M) 3 % (0-11); OVALOCYTES 1+ (0-0); PLATELET ESTIMATE NORMAL; POIKILOCYTOSIS 1+ (0-0); POLYCHROMASIA 2+ (0-0); REACTIVE LYMPHOCYTES #M 0.2 10^3/ul (0.0-0.0); REACTIVE LYMPHOCYTES% (M) 2 % (0-0); SEG NEUT #M 10.6 10^3/ul (1.6-7.5); SEGMENTED NEUTROPHILS (M) % 87 % (39-77); SPHEROCYTES 1+ (0-0)
[2019-05-04] MEDS: NYSTATIN 15 GM CR TOP ×2 (09:27→21:05)
[2019-05-04] MEDS: BALSAM PERU/CASTOR OIL 60 GM TUBE TOP ×2 (09:27→21:05)
[2019-05-04] MEDS: ENOXAPARIN 30 MG/0.3 ML SYG SC (09:32)
[2019-05-04] MEDS: MEROPENEM 500MG/50 ML (PMX) 50 ML IVPB ×2 (13:20→21:12)
[2019-05-04] MEDS: MUPIROCIN 2% 22 GM OINT TOP (21:05)
[2019-05-04] MEDS: ATORVASTATIN 20 MG TAB PO (21:05)
[2019-05-04] MEDS: INSULIN GLARGINE [LANTus] (100 UNITS/ML) SYG SC (21:32)
[2019-05-05] MEDS: INSULIN ASPART [NOVOLOG] 3 ML PEN SC ×6 (00:58→21:02)
[2019-05-05] MEDS: ACCU-CHEK XX (01:00)
[2019-05-05] MEDS: GABAPENTIN 400 MG CAP PO ×3 (05:06→21:04)
[2019-05-05] MEDS: LANSOPRAZOLE 30 MG CAP GTB (06:58)
[2019-05-05] MEDS: METOPROLOL 50 MG TAB PO ×2 (08:35→21:00)
[2019-05-05] MEDS: ISOSORBIDE DINITRATE 10 MG TAB PO ×3 (08:35→21:00)
[2019-05-05] MEDS: DULOXETINE 30 MG CAP DR PO (08:36)
[2019-05-05] MEDS: SENNA TAB PO ×2 (08:46→21:01)
[2019-05-05] MEDS: FERROUS SULFATE (EC) 325 MG TAB PO (08:46)
[2019-05-05] MEDS: MULTIVIT/CA CARB/B CMPLX/FA TAB GTB (08:46)
[2019-05-05] MEDS: MEROPENEM 500MG/50 ML (PMX) 50 ML IVPB ×2 (08:47→20:59)
[2019-05-05] MEDS: MUPIROCIN 2% 22 GM OINT TOP ×2 (08:51→21:03)
[2019-05-05] MEDS: BALSAM PERU/CASTOR OIL 60 GM TUBE TOP ×2 (08:52→21:04)
[2019-05-05] MEDS: NYSTATIN 15 GM CR TOP ×2 (08:52→21:04)
[2019-05-05] MEDS: ENOXAPARIN 30 MG/0.3 ML SYG SC (09:08)
[2019-05-05] MEDS: INSULIN GLARGINE [LANTus] (100 UNITS/ML) SYG SC (20:57)
[2019-05-05] MEDS: ATORVASTATIN 20 MG TAB PO (21:01)
[2019-05-06] MEDS: INSULIN ASPART [NOVOLOG] 3 ML PEN SC ×4 (01:59→12:54)
[2019-05-06] MEDS: ACCU-CHEK XX (01:59)
[2019-05-06] MEDS: LANSOPRAZOLE 30 MG CAP GTB (05:34)
[2019-05-06] MEDS: GABAPENTIN 400 MG CAP PO ×2 (05:34→14:00)
[2019-05-06] MEDS: MEROPENEM 500MG/50 ML (PMX) 50 ML IVPB (08:20)
[2019-05-06] MEDS: MULTIVIT/CA CARB/B CMPLX/FA TAB GTB (08:21)
[2019-05-06] MEDS: FERROUS SULFATE (EC) 325 MG TAB PO (08:21)
[2019-05-06] MEDS: METOPROLOL 50 MG TAB PO (08:25)
[2019-05-06] MEDS: ISOSORBIDE DINITRATE 10 MG TAB PO ×2 (08:25→12:47)
[2019-05-06] MEDS: DULOXETINE 30 MG CAP DR PO (08:25)
[2019-05-06] MEDS: SENNA TAB PO ×2 (08:26→20:35)
[2019-05-06] MEDS: BALSAM PERU/CASTOR OIL 60 GM TUBE TOP (08:27)
[2019-05-06] MEDS: NYSTATIN 15 GM CR TOP (08:27)
[2019-05-06] MEDS: MUPIROCIN 2% 22 GM OINT TOP (08:28)
[2019-05-06] MEDS: ENOXAPARIN 30 MG/0.3 ML SYG SC (08:42)
[2019-05-06] MEDS ORDERED: DIMETHICONE STICK TOP (16:00)
[2019-05-06] MEDS ORDERED: ATROPINE 1% 5 ML OPH SL (16:00)
[2019-05-06] MEDS ORDERED: ARTIFICIAL TEARS 15 ML OPH BOTH EYES (16:00)
[2019-05-06] MEDS ORDERED: ACETAMINOPHEN 325 MG TAB PO (16:00)
[2019-05-06] MEDS ORDERED: LORAZEPAM 2 MG INJ IV (16:00)
[2019-05-06] MEDS ORDERED: ONDANSETRON 4 MG INJ IV (16:00)
[2019-05-06] MEDS: HYDROmorphONE 50 MG in DEXTROSE 5% 50 ML IV (20:31)
== END 2019-05-06 21:11 | disposition expired | DRG 870 ==
LOC: TEL 19:52 → E/R 18:09
PROC: 5A1955Z Respiratory Ventilation, Greater than 96 Consecutive Hours (ICD-10-PCS; principal; 2019-05-01)
DX: A41.51 Sepsis due to Escherichia coli [E. coli] (principal); N18.6 End stage renal disease; N17.9 Acute kidney failure, unspecified; E87.1 Hypo-osmolality and hyponatremia; N39.0 Urinary tract infection, site not specified; I13.2 Hypertensive heart and chronic kidney disease with heart failure and with stage 5 chronic kidney disease, or end stage renal disease; G93.49 Other encephalopathy; J96.10 Chronic respiratory failure, unspecified whether with hypoxia or hypercapnia; I48.92 Unspecified atrial flutter; Z99.11 Dependence on respirator [ventilator] status; Z66 Do not resuscitate; I25.10 Atherosclerotic heart disease of native coronary artery without angina pectoris; I50.9 Heart failure, unspecified; G40.909 Epilepsy, unspecified, not intractable, without status epilepticus; R13.10 Dysphagia, unspecified; E78.5 Hyperlipidemia, unspecified; E11.51 Type 2 diabetes mellitus with diabetic peripheral angiopathy without gangrene; D64.9 Anemia, unspecified; D69.6 Thrombocytopenia, unspecified; I48.91 Unspecified atrial fibrillation; Z93.0 Tracheostomy status; Z93.1 Gastrostomy status; Z95.0 Presence of cardiac pacemaker; Z89.512 Acquired absence of left leg below knee; Z89.511 Acquired absence of right leg below knee; Z95.1 Presence of aortocoronary bypass graft; Z95.3 Presence of xenogenic heart valve; Z22.322 Carrier or suspected carrier of Methicillin resistant Staphylococcus aureus; Z79.4 Long term (current) use of insulin; Z88.0 Allergy status to penicillin
CPT/HCPCS: 36415; 71045; 76700; 80048; 80053; 81001; 81003; 82550; 82962; 83036; 83735; 84300; 84560; 85025; 85610; 85730; 87040-91; 87081; 87086; 89190; 93005; 94002; 94003; 99285-25